=== PATIENT | male | born 1970 | race African-American/Black ===

== ENCOUNTER 2017-08-19 11:17 | Inpatient (IN) | payer SELFPAY ==
[2017-08-19] VITALS (10 sets, daily range): BP systolic 115–150; BP diastolic 54–89; PULSE 55–78; RESP 18–22; TEMP 95.7–98.8; O2SAT 94–100
[~2017-08-19] VITALS: Ht 188 cm; Wt 82.0 kg
[2017-08-19] MEDS ORDERED: MIDAZOLAM HCL 5 MG/ML VIAL (1 ML) ONE (11:44)
[2017-08-19] MEDS ORDERED: LIDOCAINE 2%/EPINEPHrine 1:100,000 50ML MDV ONE (11:45)
[2017-08-19 12:13] LABS: AUTOMATED NEUTROPHIL # 2.8 TH/MM3 (1.8-7.7); BASOPHIL % 0.7 % (0.0-2.0); EOSINOPHIL # 0.4 TH/MM3 (0-0.4); EOSINOPHIL % 7.1 % (0.0-4.0); HEMATOCRIT 38.1 % (39.0-51.0); HEMO FLAGS DIFF FINAL; LYMPH % 31.4 % (9.0-44.0); LYMPHOCYTE # 1.7 TH/MM3 (1.0-4.8); MEAN CELL VOLUME 85.8 FL (80.0-100.0); MEAN CORPUSCULAR HEMOGLOBIN 27.9 PG (27.0-34.0); MEAN CORPUSCULAR HGB CONC 32.5 % (32.0-36.0); NEUT % 52.8 % (16.0-70.0); PLATELET COUNT 307 TH/MM3 (150-450); RED BLOOD COUNT 4.43 MIL/MM3 (4.50-5.90); RED CELL DISTRIBUTION WIDTH 15.5 % (11.6-17.2); WHITE BLOOD COUNT 5.4 TH/MM3 (4.0-11.0)
[2017-08-19] MEDS ORDERED: MIDAZOLAM HCL 2 MG/2 ML VIAL IV PUSH ONE (12:15)
--- NOTE | 2017-08-19 12:17 | RADRPT ---
EXAM DATE/TIME: 08/19/2017 11:38 [facility] COMPARISON: CHEST SINGLE AP, August 19, 2017, 12:05. INDICATIONS : Left side chest pains MEDICAL HISTORY : Prior left side pneumothorax SURGICAL HISTORY : Lt side pneumothroax ENCOUNTER: Initial ACUITY: 1 day PAIN SCORE: 10/10 LOCATION: Left chest FINDINGS: Single view chest demonstrates a large left pneumothorax. There is diffuse interstitial prominence wi thin both lungs. The heart is normal in size. The osseous structures are intact. There is mild shift of the mediastinum from left to right. CONCLUSION: 1. Large left pneumothorax with some shift of the mediastinum from left to right. I do have a followu p exam timed at 1205 hrs. demonstrating a chest tube in place. Robert Gregory MD on August 19, 2017 at 12:14 Board Certified Radiologist. This report was verified electronically.
--- NOTE | 2017-08-19 12:21 | RADRPT ---
EXAM DATE/TIME: 08/19/2017 12:05 [facility] COMPARISON: CHEST SINGLE AP, August 19, 2017, 11:38. INDICATIONS : Left side pneumothorax, post chest tube placement. MEDICAL HISTORY : Lt side pneumothorax SURGICAL HISTORY : Pneumothorax ENCOUNTER: Subsequent ACUITY: 1 day PAIN SCORE: 10/10 LOCATION: Left chest FINDINGS: The exam demonstrates interval placement of a left-sided chest tube. There is still a small amount of residual pneumothorax which remained. The mediastinal shift has resolved. The osseous structures are intact. CONCLUSION: 1. There is a small bore chest tube in place on the left. The tube is somewhat directed inferiorly. T here is still some residual pneumothorax which remains. Robert Gregory MD on August 19, 2017 at 12:19 Board Certified Radiologist. This report was verified electronically.
[2017-08-19 12:24] LABS: APTT (PATIENT) 30.2 SEC (24.3-30.1); PROTHROMBIN TIME - PATIENT 11.6 SEC (9.8-11.6)
[2017-08-19 12:32] LABS: BICARBONATE 27.3 MEQ/L (21.0-32.0); MAGNESIUM 2.1 MG/DL (1.5-2.5)
--- NOTE | 2017-08-19 12:39 | PD ---
HPI Chief Complaint: Respiratory Distress Time Seen by Provider: 11:27 Travel History International Travel<30 days: No Contact w/Intl Traveler<30days: No Traveled to known affect area: No History of Present Illness HPI 47 y/o male presents with shortness of breath that started acutely today. He states that Tuesday he was discharged from [facility] after he had a chest tube there. He states he followed up with his lung specialist Dr. Ojeda on Tuesday and was doing okay. He states that he has history of pulmonary fibrosis and all of his records are at that hospital. History is limited on initial examination based on clinical acuity. [facility] Past Medical History Narrative Medical Pulmonary fibrosis Past Surgical History Surgical History: No Previous Surgery Social History Tobacco Use: No Allergies-Medications (Allergen,Severity, Reaction): Coded Allergies: No Known Allergies (Unverified , 08/19/17) Review of Systems ROS Limitations: Clinical Condition Except as stated in HPI: all other systems reviewed are Neg Physical Exam Narrative GENERAL: Well-nourished, well-developed patient. SKIN: Warm and dry. HEAD: Normocephalic and atraumatic. EYES: No injection or drainage. ENT: No nasal drainage noted. NECK: Supple, trachea midline. CARDIOVASCULAR: Regular rate and rhythm RESPIRATORY: decreased breath sounds on the left. No accessory muscle use. GASTROINTESTINAL: Abdomen soft, non-tender, nondistended. EXTREMITIES: No edema. NEUROLOGICAL: Awake and alert. Motor and sensory grossly within normal limits. Normal speech. Data Data Last Documented VS Vital Signs Date Time Temp Pulse Resp B/P (MAP) Pulse Ox O2 Delivery O2 Flow Rate FiO2 08/19/17 13:00 63 18 121/85 (97) 100 Non-Rebreather 15.00 08/19/17 11:22 97.5 Orders Orders Electrocardiogram (08/19/17 11:27) Basic Metabolic Panel (Bmp) (08/19/17 11:27) Complete Blood Count With Diff (08/19/17 11:27) Magnesium (Mg) (08/19/17 11:27) Prothrombin Time / Inr (Pt) (08/19/17 11:27) Act Partial Throm Time (Ptt) (08/19/17 11:27) Chest, Single Ap (08/19/17 11:27) Ecg Monitoring (08/19/17 11:27) Iv Access Insert/Monitor (08/19/17 11:27) Oximetry (08/19/17 11:27) Oxygen Administration (08/19/17 11:27) Midazolam Inj (Versed Inj) (08/19/17 11:44) Lidocai-Epi 2%-1:100,000 Inj (Xylocaine- (08/19/17 11:45) Chest, Single Ap (08/19/17 ) Midazolam Inj (Versed Inj) (08/19/17 12:15) Consult Cardiothoracic Surgery (08/19/17 ) Admit Order (Ed Use Only) (08/19/17 13:20) Admit To Inpatient (08/19/17 ) Inpatient Certification (08/19/17 ) Diet Npo (08/19/17 Lunch) Activity Bed Rest With Brp (08/19/17 13:21) Vital Signs (Adult) GOSIA.Q4H (08/19/17 13:21) Labs Laboratory Tests Test 08/19/17 11:45 White Blood Count 5.4 TH/MM3 Red Blood Count 4.43 MIL/MM3 Hemoglobin 12.4 GM/DL Hematocrit 38.1 % Mean Corpuscular Volume 85.8 FL Mean Corpuscular Hemoglobin 27.9 PG Mean Corpuscular Hemoglobin Concent 32.5 % Red Cell Distribution Width 15.5 % Platelet Count 307 TH/MM3 Mean Platelet Volume 8.8 FL Neutrophils (%) (Auto) 52.8 % Lymphocytes (%) (Auto) 31.4 % Monocytes (%) (Auto) 8.0 % Eosinophils (%) (Auto) 7.1 % Basophils (%) (Auto) 0.7 % Neutrophils # (Auto) 2.8 TH/MM3 Lymphocytes # (Auto) 1.7 TH/MM3 Monocytes # (Auto) 0.4 TH/MM3 Eosinophils # (Auto) 0.4 TH/MM3 Basophils # (Auto) 0.0 TH/MM3 CBC Comment DIFF FINAL Differential Comment Prothrombin Time 11.6 SEC Prothromb Time International Ratio 1.0 RATIO Activated Partial Thromboplast Time 30.2 SEC Blood Urea Nitrogen 6 MG/DL Creatinine 1.00 MG/DL Random Glucose 79 MG/DL Calcium Level 9.0 MG/DL Magnesium Level 2.1 MG/DL Sodium Level 135 MEQ/L Potassium Level 4.0 MEQ/L Chloride Level 103 MEQ/L Carbon Dioxide Level 27.3 MEQ/L Anion Gap 5 MEQ/L Estimat Glomerular Filtration Rate 96 ML/MIN MDM Medical Decision Making Medical Screen Exam Complete: Yes Emergency Medical Condition: Yes Medical Record Reviewed: Yes (pmh confirmed) Interpretation(s) CBC & BMP Diagram 08/19/17 11:45 Calcium Level 9.0, Magnesium Level 2.1 Chest x-ray preliminary large left-sided pneumothorax noted with shift Repeat preliminary chest x-ray shows ET tube directed inferiorly with small apical pneumo Differential Diagnosis pneumothorax, uri, musculoskeletal.... Narrative Course will check labs, cxr, clinically patient has large left pneumothorax that has redeveloped. Initially he was hesitant to have chest tube placed. Given significant size confirmed on chest xray he agrees to chest tube placement here On reevaluation feeling better, agrees to admission and updated Procedures Procedure Narrative CHEST TUBE THORACOSTOMY: The left chest was prepped with Betadine and sterilely draped. The area of the third intercostal interspace was infiltrated with 1% lidocaine. A 0.5 centimeter incision was made with a scalpel at the third intercostal space anteriorly. the pleura was punctured with pigtail catheter with immediate jiang of air. Tube draining well. The thoracostomy tube was secured with dressing. Patient tolerated procedure well. 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 stevens agrees to admission Diagnosis Primary Impression: Pneumothorax Qualified Codes: J93.9 - Pneumothorax, unspecified Admitting Information Admitting Physician Requests: Admit Rosie May MD Aug 19, 2017 12:39
--- NOTE | 2017-08-19 14:27 | HHI.HP ---
[facility]ician No Primary Care Physician Admission Diagnosis pneumothorax Diagnoses: Chief Complaint: SHORTNESS OF BREATH Travel History International Travel<30 Days: No Contact w/Intl Traveler <30 Da: No Traveled to Known Affected Are: No History of Present Illness Patient is a 47-year-old male came in for shortness of breath. Sudden onset while at rest this morning. Patient states that she will he was in [facility] from August 29 for spontaneous left pneumothorax. He was discharged on September 12 and was doing well until sudden onset of shortness of breath this morning. Patient was discharged on Lopressor Spiriva and tramadol when necessary for pain. On evaluation here noted to have a large pneumothorax in the left and chest tube was placed and now patient is comfortable. Patient admitted for further evaluation. Patient states smoking but quit 6 months ago. Denies any recent trauma Review of Systems Constitutional: DENIES: Fever, Weight loss, Chills, Change in appetite Eyes: DENIES: Blurred vision, Double Vision Ears, nose, mouth, throat: DENIES: Tinnitus, Ear Pain, Epistaxis, Odynophagia Respiratory: DENIES: Cough, Hemoptysis, Sputum production, Shortness of breath Cardiovascular: DENIES: Chest pain, Palpitations, Dyspnea on Exertion, Lower Extremity Edema, Orthopnea Gastrointestinal: DENIES: Black stools, Bloody stools, Difficulty Swallowing, Anorexia Genitourinary: DENIES: Urgency, Hematuria, Penile Discharge Musculoskeletal: DENIES: Joint pain, Stiffness Integumentary: DENIES: Pruritus Hematologic/lymphatic: DENIES: Bruising Immunologic/allergic: DENIES: Urticaria Neurologic: DENIES: Headache, Speech Problems, Tremor Psychiatric: DENIES: Suicidal Ideation, Homicidal Ideation Past Family Social History Past Medical History Hypertension COPD Recess spontaneous pneumothorax left August 29 Past Surgical History No major surgeries Reported Medications Lopressor 25 mg twice a day Spiriva one puff daily Tramadol 50 mg when necessary for pain Allergies: Coded Allergies: No Known Allergies (Unverified , 08/19/17) Family History Noncontributory Social History Smoking a pack a chronic 6 months ago Very occasional alcohol use denied Physical Exam Vital Signs Vital Signs Date Time Temp Pulse Resp B/P (MAP) Pulse Ox O2 Delivery O2 Flow Rate FiO2 08/19/17 13:00 63 18 121/85 (97) 100 Non-Rebreather 15.00 08/19/17 11:55 72 22 125/82 (96) 100 Non-Rebreather 15.00 08/19/17 11:36 98 Non-Rebreather 08/19/17 11:36 94 Non-Rebreather 15.00 08/19/17 11:27 74 16 Non-Rebreather 15.00 08/19/17 11:22 97.5 78 18 115/54 (74) 08/19/17 11:20 100 Non-Rebreather 15.00 Physical Exam GENERAL: Awake alert currently in 100% nonrebreather. SKIN: No rashes, ecchymoses or lesions. Cool and dry. HEAD: Atraumatic. Normocephalic. No temporal or scalp tenderness. EYES: Pupils equal round and reactive. Extraocular motions intact. No scleral icterus. No injection or drainage. ENT: Nose without bleeding, purulent drainage or septal hematoma. Throat without erythema, tonsillar hypertrophy or exudate. Uvula midline. Airway patent. NECK: Trachea midline. No JVD or lymphadenopathy. Supple, nontender, no meningeal signs. CARDIOVASCULAR: Regular rate and rhythm without murmurs, gallops, or rubs. RESPIRATORY: Decreased breath sounds bilaterally no Rales no wheezes. Pigtail catheter in place in the left upper chest wall GASTROINTESTINAL: Abdomen soft, non-tender, nondistended. No hepato-splenomegaly , or palpable masses. No guarding. MUSCULOSKELETAL: Extremities without clubbing, cyanosis, or edema. No joint tenderness, effusion, or edema noted. No calf tenderness. Negative Homans sign bilaterally. NEUROLOGICAL: Awake and alert. Cranial nerves II through XII intact. Motor and sensory grossly within normal limits. Five out of 5 muscle strength in all muscle groups. Normal speech. Laboratory Laboratory Tests Test 08/19/17 11:45 White Blood Count 5.4 Red Blood Count 4.43 Hemoglobin 12.4 Hematocrit 38.1 Mean Corpuscular Volume 85.8 Mean Corpuscular Hemoglobin 27.9 Mean Corpuscular Hemoglobin Concent 32.5 Red Cell Distribution Width 15.5 Platelet Count 307 Mean Platelet Volume 8.8 Neutrophils (%) (Auto) 52.8 Lymphocytes (%) (Auto) 31.4 Monocytes (%) (Auto) 8.0 Eosinophils (%) (Auto) 7.1 Basophils (%) (Auto) 0.7 Neutrophils # (Auto) 2.8 Lymphocytes # (Auto) 1.7 Monocytes # (Auto) 0.4 Eosinophils # (Auto) 0.4 Basophils # (Auto) 0.0 CBC Comment DIFF FINAL Differential Comment Prothrombin Time 11.6 Prothromb Time International Ratio 1.0 Activated Partial Thromboplast Time 30.2 Blood Urea Nitrogen 6 Creatinine 1.00 Random Glucose 79 Calcium Level 9.0 Magnesium Level 2.1 Sodium Level 135 Potassium Level 4.0 Chloride Level 103 Carbon Dioxide Level 27.3 Anion Gap 5 Estimat Glomerular Filtration Rate 96 Result Diagram: 08/19/17 1145 08/19/17 1145 Imaging Last Impressions Chest X-Ray 08/19/17 1127 Signed Impressions: Service Date/Time: Saturday, August 19, 2017 11:38 - CONCLUSION: 1. Large left pneumothorax with some shift of the mediastinum from left to right. I do have a followup exam timed at 1205 hrs. demonstrating a chest tube in place. Robert Gregory MD Caprini VTE Risk Assessment Caprini VTE Risk Assessment: No/Low Risk (score <= 1) Caprini Risk Assessment Model Point Value = 1 Point Value = 2 Point Value = 3 Point Value = 5 Age 41-60 Minor surgery BMI > 25 kg/m2 Swollen legs Varicose veins or History of unexplained or recurrent spontaneous Oral contraceptives or hormone replacement Sepsis (< 1 month) Serious lung disease, including pneumonia (< 1 month) Abnormal pulmonary function Acute myocardial infarction Congestive heart failure (< 1 month) History of inflammatory bowel disease Medical patient at bed rest Age 61-74 Arthroscopic surgery Major open surgery (> 45 min) Laparoscopic surgery (> 45 min) Malignancy Confined to bed (> 72 hours) Immobilizing plaster cast Central venous access Age >= 75 History of VTE Family history of VTE Factor V Leiden Prothrombin [id number] Lupus anticoagulant Anticardiolipin antibodies Elevated serum homocysteine Heparin-induced thrombocytopenia Other congenital or acquired thrombophilia Stroke (< 1 month) Elective arthroplasty Hip, pelvis, or leg fracture Acute spinal cord injury (< 1 month) Prophylaxis Regimen Total Risk Factor Score Risk Level Prophylaxis Regimen 0-1 Low Early ambulation 2 Moderate Order ONE of the following: *Sequential Compression Device (SCD) *Heparin 5000 units SQ BID 3-4 Higher Order ONE of the following medications: *Heparin 5000 units SQ TID *Enoxaparin/Lovenox 40 mg SQ daily (WT < 150 kg, CrCl > 30 mL/min) *Enoxaparin/Lovenox 30 mg SQ daily (WT < 150 kg, CrCl > 10-29 mL/min) *Enoxaparin/Lovenox 30 mg SQ BID (WT < 150 kg, CrCl > 30 mL/min) AND/OR *Sequential Compression Device (SCD) 5 or more Highest Order ONE of the following medications: *Heparin 5000 units SQ TID (Preferred with Epidurals) *Enoxaparin/Lovenox 40 mg SQ daily (WT < 150 kg, CrCl > 30 mL/min) *Enoxaparin/Lovenox 30 mg SQ daily (WT < 150 kg, CrCl > 10-29 mL/min) *Enoxaparin/Lovenox 30 mg SQ BID (WT < 150 kg, CrCl > 30 mL/min) AND *Sequential Compression Device (SCD) Assessment and Plan Assessment and Plan 47-year-old male presenting with Recurrent spontaneous left pneumothorax keep Chest tube in place Percocet when necessary for chest tube site pain Cardiothoracic surgery consulted for further management. 02 NC COPD. Continue Spiriva History of hypertension- good readings here. Monitor for now. Has a script for Lopressor that was not filled TEDs/SCDs. Early ambulation Physician Certification 2 Midnight Certification Type: Admission for Inpatient Services Order for Inpatient Services The services are ordered in accordance with Medicare regulations or non- Medicare payer requirements, as applicable. In the case of services not specified as inpatient-only, they are appropriately provided as inpatient services in accordance with the 2-midnight benchmark. Estimated LOS (days): 3 days is the estimated time the patient will need to remain in the hospital, assuming treatment plan goals are met and no additional complications. Post-Hospital Plan: Not yet determined Jass Gallego MD Aug 19, 2017 14:27
[2017-08-19] MEDS: oxyCODONE/ACETAMINOPHEN 5 MG/325 MG TAB PO PRN (16:27)
--- NOTE | 2017-08-19 16:51 | EKG ---
Date Performed: 08/19/2017 Time Performed: 13:20:16 PTAGE: 47 years EKG: SINUS BRADYCARDIA POSSIBLE RIGHT VENTRICULAR CONDUCTION DELAY VOLTAGE CRITERIA FOR LVH ABNO RMAL ECG NO PREVIOUS TRACING DOCTOR: Romero Mckenna Interpretating Date/Time 08/19/2017 16:50:35
[2017-08-19] MEDS ORDERED: RESP: ALBUTEROL 2.5 MG/IPRATROPIUM 0.5 MG NEB (PRN) NEB (18:00)
--- NOTE | 2017-08-19 18:25 | RADRPT ---
EXAM DATE/TIME: 08/19/2017 17:14 [facility] COMPARISON: CHEST SINGLE AP, August 19, 2017, 12:05. INDICATIONS : Pneumothorax. RADIATION DOSE: 6.25 CTDIvol (mGy) MEDICAL HISTORY : Left chest tube SURGICAL HISTORY : None. ENCOUNTER: Initial ACUITY: 1 day PAIN SCALE: 4/10 LOCATION: Left chest TECHNIQUE: Volumetric scanning of the chest was performed. Using automated exposure control and adjustment of t he mA and/or kV according to patient size, radiation dose was kept as low as reasonably achievable to obtain optimal diagnostic quality images. DICOM format image data is available electronically for r eview and comparison. Follow-up recommendations for detected pulmonary nodules are based at a minimum on nodule size and pa tient risk factors according to Fleischner Society Guidelines. FINDINGS: There is a small bore chest tube in place on the left. The tube is in excellent position. There are m ultiple large emphysematous blebs in the left lung apex. There is a a trace amount of residual pneumo thorax along the medial aspect of the right lung apex. There are multiple large emphysematous blebs seen in both upper lobes more so on the left than the ri ght. There is advanced pulmonary fibrosis. There are multiple small subpleural blebs. Exam would be c oncerning for IPF. The heart is mildly enlarged. There is no pericardial effusion. There is no pleural effusion. The limited portions of upper abdomen visualized are unremarkable. The visualized osseous structures are grossly intact. CONCLUSION: 1. Left apical chest tube in good position. 2. Advanced interstitial fibrosis with multiple subpleural blebs suggesting IPF. 3. There are multiple large emphysematous bleb seen through the lung apices as well. 4. Cardiomegaly. Robert Gregory MD on August 19, 2017 at 18:19 Board Certified Radiologist. This report was verified electronically.
[2017-08-19] MEDS: HYDROmorphone HCL PF 1 MG/ML VIAL IV PRN (21:17)
[2017-08-20] VITALS (8 sets, daily range): BP systolic 101–123; BP diastolic 64–81; PULSE 57–67; RESP 17–20; TEMP 95.3–97.3; O2SAT 95–100
[2017-08-20] MEDS: HYDROmorphone HCL PF 1 MG/ML VIAL IV PRN (05:14)
--- NOTE | 2017-08-20 08:42 | HHI.PR ---
Subjective Remarks complains of chest tube site pain no cough blunt affect Objective Vitals Vital Signs Date Time Temp Pulse Resp B/P (MAP) Pulse Ox O2 Delivery O2 Flow Rate FiO2 08/20/17 05:30 95 Nasal Cannula 3.00 08/20/17 00:00 97.3 61 17 118/80 (93) 99 08/19/17 20:00 98.8 72 20 124/74 (91) 100 08/19/17 19:01 94 Nasal Cannula 4.00 08/19/17 17:55 08/19/17 17:30 95.7 55 18 125/83 (97) 100 08/19/17 16:08 66 20 150/89 (109) 99 Nasal Cannula 4.00 08/19/17 13:00 63 18 121/85 (97) 100 Non-Rebreather 15.00 08/19/17 11:55 72 22 125/82 (96) 100 Non-Rebreather 15.00 08/19/17 11:36 98 Non-Rebreather 08/19/17 11:36 94 Non-Rebreather 15.00 08/19/17 11:27 74 16 Non-Rebreather 15.00 08/19/17 11:22 97.5 78 18 115/54 (74) 08/19/17 11:20 100 Non-Rebreather 15.00 I/O 08/19/17 08/19/17 08/19/17 08/20/17 08/20/17 08/20/17 07:00 15:00 23:00 07:00 15:00 23:00 Intake Total 0 ml Output Total 50 ml 1100 ml Balance -50 ml -1100 ml Intake IV Total 0 ml Output Urine Total 1100 ml Chest Tube Drainage Total 0 ml Drainage Total 50 ml Result Diagram: 08/19/17 1145 08/19/17 1145 Imaging Last Impressions Chest X-Ray 08/19/17 1127 Signed Impressions: Service Date/Time: Saturday, August 19, 2017 11:38 - CONCLUSION: 1. Large left pneumothorax with some shift of the mediastinum from left to right. I do have a followup exam timed at 1205 hrs. demonstrating a chest tube in place. Robert Gregory MD Chest CT 08/19/17 0000 Signed Impressions: Service Date/Time: [place], August 19, 2017 17:14 - CONCLUSION: 1. Left apical chest tube in good position. 2. Advanced interstitial fibrosis with multiple subpleural blebs suggesting IPF. 3. There are multiple large emphysematous bleb seen through the lung apices as well. 4. Cardiomegaly. Robert Gregory MD Objective Remarks awake and alert, oriented x 3 anicteric lungs decreased breath sounds, no rales or wheezes, CT in site left regular rhythm abdomen soft, nontender extrmeities no edema A/P Assessment and Plan 47-year-old male presenting with Recurrent spontaneous left pneumothorax-left keep Chest tube in place, CT with blebs Percocet when necessary for chest tube site pain- d/w him Cardiothoracic surgery consulted for further management. 02 NC getting IV Dilaudid- discussed with him to try po pain meds COPD. Continue Spiriva History of hypertension- good readings here. Monitor for now. Has a script for Lopressor that was not filled Out of bed to chair PT consult TEDs/SCDs. Early ambulation- patient encouraged Jass Gallego MD Aug 20, 2017 08:42
[2017-08-20] MEDS: TIOTROPIUM BROMIDE 18 MCG INH INH SCH (08:53)
[2017-08-20] MEDS: oxyCODONE/ACETAMINOPHEN 5 MG/325 MG TAB PO PRN ×3 (08:58→20:21)
[2017-08-21] VITALS (17 sets, daily range): BP systolic 111–139; BP diastolic 73–89; PULSE 64–78; RESP 16–20; TEMP 96.4–98.1; O2SAT 93–99
[2017-08-21] MEDS: oxyCODONE/ACETAMINOPHEN 5 MG/325 MG TAB PO PRN ×5 (00:35→22:03)
[2017-08-21] MEDS: TIOTROPIUM BROMIDE 18 MCG INH INH SCH ×2 (07:53→12:01)
--- NOTE | 2017-08-21 08:38 | HHI.PR ---
Subjective Remarks more interactive and smiling, pleasant and cooperative pain on chest tube site Objective Vitals Vital Signs Date Time Temp Pulse Resp B/P (MAP) Pulse Ox O2 Delivery O2 Flow Rate FiO2 08/21/17 00:00 96.5 74 20 121/86 (98) 99 08/20/17 22:39 98 Nasal Cannula 3.00 08/20/17 20:00 96.6 67 20 123/81 (95) 08/20/17 16:09 98 Nasal Cannula 3.00 08/20/17 16:00 96.4 57 17 110/73 (85) 98 08/20/17 12:00 95.3 60 17 101/66 (78) 100 I/O 08/20/17 08/20/17 08/20/17 08/21/17 08/21/17 08/21/17 07:00 15:00 23:00 07:00 15:00 23:00 Intake Total 0 ml 720 ml 480 ml Output Total 1100 ml 650 ml 650 ml 1300 ml Balance -1100 ml -650 ml 70 ml -820 ml Intake Oral 720 ml 480 ml IV Total 0 ml Output Urine Total 1100 ml 650 ml 650 ml 1300 ml Chest Tube Drainage Total 0 ml # Bowel Movements 0 0 Result Diagram: 08/19/17 1145 08/19/17 1145 Imaging Last Impressions Chest X-Ray 08/19/17 1127 Signed Impressions: Service Date/Time: Saturday, August 19, 2017 11:38 - CONCLUSION: 1. Large left pneumothorax with some shift of the mediastinum from left to right. I do have a followup exam timed at 1205 hrs. demonstrating a chest tube in place. Robert Gregory MD Chest CT 08/19/17 0000 Signed Impressions: Service Date/Time: Saturday, August 19, 2017 17:14 - CONCLUSION: 1. Left apical chest tube in good position. 2. Advanced interstitial fibrosis with multiple subpleural blebs suggesting IPF. 3. There are multiple large emphysematous bleb seen through the lung apices as well. 4. Cardiomegaly. Robert Gregory MD Objective Remarks awake and alert, oriented x 3 anicteric lungs decreased breath sounds, no rales or wheezes, CT - pigtail catheter in place left anterior chest wall regular rhythm abdomen soft, nontender no edema, no calf tenderness neuro exam- unremarkable A/P Assessment and Plan 47-year-old male presenting with Recurrent spontaneous left pneumothorax-l keep Chest tube in place, chest CT with blebs Percocet when necessary for chest tube site pain- not requiring IV pain meds Cardiothoracic surgery consulted for further management.and chest tube management - will get a repeat CXR now for ff up pneumothorax 02 NC pain meds COPD. Continue Spiriva History of hypertension- good readings here. Monitor for now. Has a script for Lopressor that was never filled Out of bed to chair- activity PT consult TEDs/SCDs. Early ambulation- patient encouraged Jass Gallego MD Aug 21, 2017 08:38
--- NOTE | 2017-08-21 11:43 | PD.CAR.PN ---
CVT Progress Note Subjective/Hospital Course: c/o pain at chest tube site. Displeased with care at this hospital and requesting transfer to [facility] where he was recently discharged. Objective: Vital Signs Date Time Temp Pulse Resp B/P (MAP) Pulse Ox O2 Delivery O2 Flow Rate FiO2 08/21/17 08:00 96.8 71 17 118/87 (97) 97 08/21/17 00:00 96.5 74 20 121/86 (98) 99 08/20/17 22:39 98 Nasal Cannula 3.00 08/20/17 20:00 96.6 67 20 123/81 (95) 08/20/17 16:09 98 Nasal Cannula 3.00 08/20/17 16:00 96.4 57 17 110/73 (85) 98 08/20/17 12:00 95.3 60 17 101/66 (78) 100 Result Diagram: 08/19/17 1145 08/19/17 1145 Imaging: Last Impressions Chest X-Ray 08/19/17 1127 Signed Impressions: Service Date/Time: Saturday, August 19, 2017 11:38 - CONCLUSION: 1. Large left pneumothorax with some shift of the mediastinum from left to right. I do have a followup exam timed at 1205 hrs. demonstrating a chest tube in place. Robert Gregory MD Chest CT 08/19/17 0000 Signed Impressions: Service Date/Time: Saturday, August 19, 2017 17:14 - CONCLUSION: 1. Left apical chest tube in good position. 2. Advanced interstitial fibrosis with multiple subpleural blebs suggesting IPF. 3. There are multiple large emphysematous bleb seen through the lung apices as well. 4. Cardiomegaly. Robert Gregory MD Cardiovascular: RRR Pulmonary: CTA GI/: NABS Plan: Patient was recently discharged from [facility] and he is known to that hospital and their physicians. It is reasonable to investigate transferring him there as he requests. CXR today Transfer to [facility] for chest tube care - chest tube was found unsecured and I secured it myself. If transfer is not feasible, he would benefit from VATS bleb resection and pleuradesis. Kati Blunt MD Aug 21, 2017 11:43
--- NOTE | 2017-08-21 12:12 | RADRPT ---
EXAM DATE/TIME: 08/21/2017 11:36 [facility] COMPARISON: CHEST SINGLE AP, August 19, 2017, 12:05. INDICATIONS : Evaluate pneumothorax MEDICAL HISTORY : pneumothorax SURGICAL HISTORY : Left chest tube ENCOUNTER: Subsequent ACUITY: 2 days PAIN SCORE: 4/10 LOCATION: Left chest FINDINGS: Single portable expiration view of the chest demonstrates a left-sided apically directed chest tube a nd a large left-sided pneumothorax which has increased in size as compared to the prior exam. There i s progressive hazy opacity identified within the right right hemithorax which may reflect atelectasis . The heart size appears at the upper limits of normal. Osseous structures are unremarkable. CONCLUSION: Large left-sided pneumothorax with atelectasis of the left lung. This is increased in size as compare d to the prior exam. There is an apically directed chest tube present appears to be appropriate in po sition. Increasing hazy opacity identified within the right hemithorax likely reflecting atelectasis. Elizabeth Hall MD on August 21, 2017 at 12:08 Board Certified Radiologist. This report was verified electronically.
[2017-08-22] VITALS (39 sets, daily range): BP systolic 115–159; BP diastolic 82–102; PULSE 57–96; RESP 16–18; TEMP 97.4–98.4; O2SAT 91–100
--- NOTE | 2017-08-22 08:11 | HHI.PR ---
Subjective Remarks This is a pleasant 47 y/o male who came to ER with SOB, sudden onset, he had history of spontaneous left pneumothorax with recent treatment and discharged from [facility], due to Large Pneumothorax on jeancarlos left a chest tube was placed. as we know he has Hypertension COPD, I was called early in the morning by nurse Miss Pedroza to tell me the patient had his Left Chest tube dislodge, recommended to get a CXR that showed Left tension Pneumothorax, as placed a new Chest tube by Cardiothoracic surgery and recommended for VATS procedure for tomorrow Objective Vital Signs Date Time Temp Pulse Resp B/P (MAP) Pulse Ox O2 Delivery O2 Flow Rate FiO2 08/22/17 07:47 95 Nasal Cannula 3.00 08/22/17 07:00 78 08/22/17 06:00 72 08/22/17 05:00 72 08/22/17 04:00 97.6 70 18 139/99 (112) 96 08/22/17 04:00 86 08/22/17 03:42 66 08/22/17 03:00 66 08/22/17 02:00 74 08/22/17 01:00 68 08/22/17 00:00 74 08/22/17 00:00 98.4 71 16 142/97 (112) 96 08/21/17 23:20 76 08/21/17 23:00 72 08/21/17 22:00 74 08/21/17 21:06 96 Nasal Cannula 3.00 08/21/17 21:00 68 08/21/17 20:00 68 08/21/17 19:00 97.5 72 16 119/82 (94) 96 08/21/17 19:00 72 08/21/17 18:00 64 08/21/17 17:00 72 08/21/17 16:30 93 Nasal Cannula 3.00 08/21/17 16:00 67 08/21/17 15:30 98.1 66 16 139/89 (106) 08/21/17 15:00 69 08/21/17 12:00 96.4 78 17 111/73 (86) 95 08/21/17 09:18 95 Nasal Cannula 3.00 I/O 10/1/17 10/1/17 10/1/17 10/2/17 10/2/17 10/2/17 07:00 15:00 23:00 07:00 15:00 23:00 Intake Total 480 ml 840 ml 720 ml Output Total 1300 ml 0 ml 920 ml Balance -820 ml 840 ml -200 ml Intake Oral 480 ml 840 ml 720 ml Output Urine Total 1300 ml 900 ml Chest Tube Drainage Total 0 ml 20 ml # Voids 2 # Bowel Movements 0 0 Result Diagram: 08/19/17 1145 08/19/17 1145 Imaging Last Impressions Chest X-Ray 08/21/17 0000 Signed Impressions: Service Date/Time: Monday, August 21, 2017 11:36 - CONCLUSION: Large left-sided pneumothorax with atelectasis of the left lung. This is increased in size as compared to the prior exam. There is an apically directed chest tube present appears to be appropriate in position. Increasing hazy opacity identified within the right hemithorax likely reflecting atelectasis. Elizabeth Hall MD Chest CT 08/19/17 0000 Signed Impressions: Service Date/Time: Saturday, August 19, 2017 17:14 - CONCLUSION: 1. Left apical chest tube in good position. 2. Advanced interstitial fibrosis with multiple subpleural blebs suggesting IPF. 3. There are multiple large emphysematous bleb seen through the lung apices as well. 4. Cardiomegaly. Robert Gregory MD Procedures Chest Tube placement on Left. repeated today. Other Results Laboratory Tests Test 08/19/17 11:45 White Blood Count 5.4 TH/MM3 Red Blood Count 4.43 MIL/MM3 Hemoglobin 12.4 GM/DL Hematocrit 38.1 % Mean Corpuscular Volume 85.8 FL Mean Corpuscular Hemoglobin 27.9 PG Mean Corpuscular Hemoglobin Concent 32.5 % Red Cell Distribution Width 15.5 % Platelet Count 307 TH/MM3 Mean Platelet Volume 8.8 FL Neutrophils (%) (Auto) 52.8 % Lymphocytes (%) (Auto) 31.4 % Monocytes (%) (Auto) 8.0 % Eosinophils (%) (Auto) 7.1 % Basophils (%) (Auto) 0.7 % Neutrophils # (Auto) 2.8 TH/MM3 Lymphocytes # (Auto) 1.7 TH/MM3 Monocytes # (Auto) 0.4 TH/MM3 Eosinophils # (Auto) 0.4 TH/MM3 Basophils # (Auto) 0.0 TH/MM3 CBC Comment DIFF FINAL Differential Comment Prothrombin Time 11.6 SEC Prothromb Time International Ratio 1.0 RATIO Activated Partial Thromboplast Time 30.2 SEC Blood Urea Nitrogen 6 MG/DL Creatinine 1.00 MG/DL Random Glucose 79 MG/DL Calcium Level 9.0 MG/DL Magnesium Level 2.1 MG/DL Sodium Level 135 MEQ/L Potassium Level 4.0 MEQ/L Chloride Level 103 MEQ/L Carbon Dioxide Level 27.3 MEQ/L Anion Gap 5 MEQ/L Estimat Glomerular Filtration Rate 96 ML/MIN Objective Remarks GENERAL: Well developed in no acute distress. SKIN: Warm and dry. HEAD: Atraumatic. Normocephalic. EYES: Pupils equal and round. No scleral icterus. No injection or drainage. ENT: No nasal bleeding or discharge. Mucous membranes pink and moist. NECK: Trachea midline. No JVD. CARDIOVASCULAR: Regular rate and rhythm. RESPIRATORY: decreased breath sounds on the left chest area with chest tube in place. GASTROINTESTINAL: Abdomen soft, non-tender, nondistended. Hepatic and splenic margins not palpable. MUSCULOSKELETAL: Extremities without clubbing, cyanosis, or edema. No obvious deformities. NEUROLOGICAL: Awake and alert. No obvious cranial nerve deficits. Motor grossly within normal limits. Five out of 5 muscle strength in the arms and legs. Normal speech. PSYCHIATRIC: Appropriate mood and affect; insight and judgment normal. Medications and IVs Current Medications Medications (Trade) Dose Ordered Sig/Susanna Route Start Time Stop Time Status Last Admin (Spiriva Inh) 18 mcg DAILY INH 08/20/17 09:00 08/21/17 12:01 (Percocet 5-325 Mg) 1 tab Q4H PRN PO 08/19/17 14:45 08/21/17 22:03 (Duoneb Neb) 1 ampule Q6HR WHILE AWAKE NEB PRN NEB 08/19/17 18:00 (Dilaudid Pf Inj) 0.2 mg Q3HR PRN IV PUSH 08/20/17 08:45 A/P Assessment and Plan 47-year-old male presenting with Recurrent spontaneous left pneumothorax keep Chest tube in place, chest CT with blebs, today chest tube dislodge and was replace by Cardiothoracic surgery. Pain Medicine, Cardiothoracic Surgery Doctor Kati Blunt Following, recommended, VATS Bleb resection and Pleurodesis patient accepted will be performed tomorrow. Oxygen to keep oxygen saturation over 90%. COPD. Bronchodilator, Mucolytic and incentive spirometry. Hypertension controlled. Out of bed to chair- activity PT consult authorization manager. TEDs/SCDs. Early ambulation- patient encouraged Discharge Planning Once cleared by Specialists. Kingsley Murphy MD Aug 22, 2017 08:11
--- NOTE | 2017-08-22 08:15 | MB ---
cc: KATI BLUNT DATE OF CONSULTATION 08/19/17 DATE OF 1970 HISTORY OF PRESENT ILLNESS A 47-year-old male that was just recently discharged from [facility] that had a spontaneous left pneumothorax, had an initial chest tube placed in the emergency department apparently came out and had a second chest tube placed with resolution of the pneumothorax after about 10-12 days. He was actually seen by Dr. Arnoldo Vernon. They discussed possible bleb resection. However, the patient's pneumothorax resolved spontaneously then, so he was discharged and then presented early this morning for new onset again of sudden chest pain, left-sided and shortness of breath. They did a chest x-ray which showed a large left pneumothorax, some shift of the mediastinum from the left the right. They placed a pigtail catheter in the emergency department and a repeat chest x-ray shows some residual pneumothorax. We were consulted because of recurrent pneumothorax. PAST MEDICAL HISTORY Includes spontaneous pneumothorax, July 29 requiring a chest tube at [facility]. COPD, hypertension. PAST SURGICAL HISTORY No major surgeries. SURGERIES No known allergies MEDICATIONS Home meds include: 1. Lopressor 25 b.i.d. 2. Spiriva 1 puff daily. 3. Tramadol 50 p.r.n. for pain. FAMILY HISTORY Noncontributory. No history of spontaneous pneumothorax. SOCIAL HISTORY The patient , single, has children. 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 Occasional alcohol. No illicit drugs. Quit smoking for about 6 months ago. Smoked less than a pack per week. REVIEW OF SYSTEMS GENERAL: In general, no night sweats, fever, heat or cold intolerance. SKIN: No psoriasis, itching or hives. HEENT: No blurred vision, hearing loss. RESPIRATORY: Positive for recent chest pain, shortness of breath. GASTROINTESTINAL: No diarrhea, vomiting. GENITOURINARY: No burning frequency, urgency. IT TEACHER: No history of TIA, CVA, seizure disorder. ENDOCRINOLOGY: No history of diabetes or hypothyroidism. PHYSICAL EXAMINATION VITAL SIGNS: On exam blood pressure 120/80, heart rate 60, currently is on 4 liters nasal cannula. He did start out with a non-rebreather and the O2 sat was 94%. He is now 99% on 4 liters, afebrile. GENERAL: Patient is awake, alert, in no acute distress. HEENT: Head is normocephalic, atraumatic. Pupils equal and reactive. Oral mucosa pink, moist. NECK: Supple. No JVD. HEART: Sounds S1-S2, regular rate and rhythm. No audible rubs, murmurs, gallops. LUNGS: Diminished in the left lower lobe otherwise, he has got a left small-bore pigtail catheter in the left upper chest wall, and that is to wall suction at 20 cm. He does have a small incision that is healing to the left lateral chest wall with some scant yellowish drainage. ABDOMEN: Soft, nontender. No masses or organomegaly. EXTREMITIES: No cyanosis, clubbing or edema. LABORATORY DATA Lab work shows hemoglobin 12, hematocrit 38, white cell count 5.4, platelet count 307, sodium 135, potassium 4.0, BUN 6, creatinine 1.0, mag level 2.1. INR is 1.0. IMAGING STUDIES Chest x-ray as above. IMPRESSION This is a very pleasant 57-year-old male with a recurrent left pneumothorax, spontaneous. At this time there is no imaging available from [facility], so we will proceed with a CT chest without contrast to evaluate for bullae and/or blebs and evaluation for possible need for left video-assisted thoracoscopy with bleb resection as per Dr. Kati Blunt. Dictated by: KEYON Devine Kati Blunt MD CHM/BERNRAD /4:33 PM /8:14 AM
--- NOTE | 2017-08-22 08:36 | RADRPT ---
EXAM DATE/TIME: 08/22/2017 07:46 [facility] COMPARISON: CHEST SINGLE AP, August 21, 2017, 11:36. INDICATIONS : Evaluate left chest tube and pneumothorax, short of breath and some coughing MEDICAL HISTORY : pneumothorax SURGICAL HISTORY : left chest tube ENCOUNTER: Subsequent ACUITY: 3 days PAIN SCORE: 5/10 LOCATION: Left chest FINDINGS: The cardiac silhouette is enlarged in transverse diameter. Small caliber chest tubes in place with la rge left pneumothorax with shift of the mediastinum characteristic of tension pneumothorax. Subcutane ous air is present on the left. CONCLUSION: 1. Left tension pneumothorax. The findings were discussed with the nurse at time of dictation Liang Cervantes MD on August 22, 2017 at 8:30 Board Certified Radiologist. This report was verified electronically.
[2017-08-22] MEDS ORDERED: MORPHINE SULFATE 8 MG/ML INJ ONE (08:41)
[2017-08-22] MEDS ORDERED: MIDAZOLAM HCL 5 MG/ML VIAL (1 ML) ONE (08:46)
[2017-08-22] MEDS ORDERED: LIDOCAINE HCL 1% 50 ML VIAL ONE (09:01)
--- NOTE | 2017-08-22 09:43 | RADRPT ---
EXAM DATE/TIME: 08/22/2017 09:22 [facility] COMPARISON: CT THORAX W/O CONTRAST, August 19, 2017, 17:14. CHEST SINGLE AP, August 22, 2017, 7:46. INDICATIONS : Post chest tube replacement for left tension pneumothorax MEDICAL HISTORY : pneumothorax SURGICAL HISTORY : left chest tube ENCOUNTER: Subsequent ACUITY: 1 day PAIN SCORE: 5/10 LOCATION: Left chest FINDINGS: There has been exchange of a pigtail left thoracostomy tube for a large caliber surgical tube. There is persistent moderate pneumothorax on the left with about 5 cm separation of medial apical pleural l acosta. Is extensive subcutaneous emphysema. There has been resolution of cardiomediastinal shift. The re is persistent diffuse interstitial and alveolar parenchymal opacity. CONCLUSION: Persistent sizable left apical pneumothorax. Resolution of tension, however Arnoldo Gonzalez MD on August 22, 2017 at 9:39 Board Certified Radiologist. This report was verified electronically.
--- NOTE | 2017-08-22 10:03 | PD.CAR.PN ---
CVT Progress Note Subjective/Hospital Course: c/o pain at chest tube site. Displeased with care at this hospital and requesting transfer to [facility] where he was recently discharged. 08/22/17 Patient developed left tension pneumothorax this morning likely secondary tube dislodgement. Chest tube repleced by Dr. Carmichael emergently with re-expansion of left lung and small apical PTX. Patient has no complaints currently. Objective: Vital Signs Date Time Temp Pulse Resp B/P (MAP) Pulse Ox O2 Delivery O2 Flow Rate FiO2 08/22/17 08:07 97.4 143/98 (113) 08/22/17 07:47 95 Nasal Cannula 3.00 08/22/17 07:00 78 08/22/17 06:00 72 08/22/17 05:00 72 08/22/17 04:00 97.6 70 18 139/99 (112) 96 08/22/17 04:00 86 08/22/17 03:42 66 08/22/17 03:00 66 08/22/17 02:00 74 08/22/17 01:00 68 08/22/17 00:00 74 08/22/17 00:00 98.4 71 16 142/97 (112) 96 08/21/17 23:20 76 08/21/17 23:00 72 08/21/17 22:00 74 08/21/17 21:06 96 Nasal Cannula 3.00 08/21/17 21:00 68 08/21/17 20:00 68 08/21/17 19:00 97.5 72 16 119/82 (94) 96 08/21/17 19:00 72 08/21/17 18:00 64 08/21/17 17:00 72 08/21/17 16:30 93 Nasal Cannula 3.00 08/21/17 16:00 67 08/21/17 15:30 98.1 66 16 139/89 (106) 08/21/17 15:00 69 08/21/17 12:00 96.4 78 17 111/73 (86) 95 Result Diagram: 08/19/17 1145 08/19/17 1145 Imaging: Last Impressions Chest X-Ray 08/21/17 0000 Signed Impressions: Service Date/Time: Monday, August 21, 2017 11:36 - CONCLUSION: Large left-sided pneumothorax with atelectasis of the left lung. This is increased in size as compared to the prior exam. There is an apically directed chest tube present appears to be appropriate in position. Increasing hazy opacity identified within the right hemithorax likely reflecting atelectasis. Elizabeth Hall MD Chest CT 08/19/17 0000 Signed Impressions: Service Date/Time: Saturday, August 19, 2017 17:14 - CONCLUSION: 1. Left apical chest tube in good position. 2. Advanced interstitial fibrosis with multiple subpleural blebs suggesting IPF. 3. There are multiple large emphysematous bleb seen through the lung apices as well. 4. Cardiomegaly. Robert Gregory MD Cardiovascular: RRR Telemetry: NSR Pulmonary: CTA GI/: NABS CT: minimal output, no visible air leak Plan: Recommend left VATS for bleb resection and pleuradesis. Risks and benefits discussed with the patient and he agrees to proceed. Plan for this procedure tomorrow. Kati Blunt MD Aug 22, 2017 10:03
[2017-08-22] MEDS ORDERED: CHLORHEXIDINE GLUCONATE 4% SOLN 120 ML BTL TOPICAL SCH (10:15)
[2017-08-22] MEDS ORDERED: ceFAZolin 2 GM PREMIX 50 ML IV SCH (10:15)
[2017-08-22] MEDS: MUPIROCIN 2% OINT 1 APPLIC/GM SYR EACH NARE SCH ×2 (10:15→20:32)
[2017-08-22] MEDS: oxyCODONE/ACETAMINOPHEN 5 MG/325 MG TAB PO PRN ×3 (11:05→20:27)
[2017-08-22] MEDS: TIOTROPIUM BROMIDE 18 MCG INH INH SCH (11:05)
--- NOTE | 2017-08-22 13:27 | PD.OP ---
Operative Report Date of Surgery: Aug 22, 2017 Preoperative Diagnosis: Postoperative Diagnosis: Procedure: 1. Emergent Left Thoracostomy Tube Placement 2. Decompression of Tension Pneumothorax Surgeon: Ken Carmichael Bottom Finisher(s): Kym Cai Operation and Findings: PREOPERATIVE DIAGNOSES 1. Left Tension Pneumothorax 2. Blebs POSTOPERATIVE DIAGNOSES Same SURGICAL PROCEDURE 1. Emergent Left Thoracostomy Tube Placement 2. Decompression of Tension Pneumothorax SURGEON Ken Carmichael MD [employer]ERA REPAIRER Arnoldo Cai CLINICAL PSYCHOLOGIST PRIVATE [facility]ICE ANESTHESIA Lidocaine 1% IV Sedation PREPARATION ChloraPrep. COUNTS Needle, sponge, and instrument counts are correct. DRAINS One [address] COMPLICATIONS None. INDICATIONS The patient is a 47 yo gentleman with recurrent L PTX, now with tension PTX due to dislodgement of the pigtail catheter. The procedure is being performed at the bedside emergently to decompress the tension PTX. DESCRIPTION OF PROCEDURE Informed consent was obtained for a chest tube. Patient was placed on his right side. Site was cleaned and sterilized with chlorohexidine and drapped in usual fashion. Then 15 mls of 1% lidocaine was injected in a normal fashion into the tissue. Incision was then made over the 5th rib in the anterior axillary line and the tissue was dissected to the pleural space. Then a trocared 20 Fr malay chest tube was inserted into the pleural space. Upon entering the pleural space a big gush of air was noted. The chest tube was then secured with a 2-0 silk. Once secured, the chest tube was then connected to a pleur-evac suction device and the incision site was dressed with sterile gauze and tape. No complications were identified and a PCXR is pending. Ken Carmichael MD Aug 22, 2017 13:27
[2017-08-22] MEDS ORDERED: MIDAZOLAM HCL 5 MG/ML VIAL (1 ML) IV ONE (14:00)
[2017-08-22] MEDS ORDERED: MORPHINE SULFATE 8 MG/ML INJ IV PUSH ONE (14:00)
[2017-08-22 18:58] LABS: BLOOD, URINE NEG (NEG); COMMENT (UR) CULT NOT INDICATED; CULTURE IF INDICATED CULT NOT INDICATED; GLUCOSE,URINE NEG (NEG); KETONE, URINE NEG (NEG); NITRITE,URINE NEG (NEG); PH, URINE 6.5 (5.0-8.5); URINE COLOR YELLOW (YELLW/STRAW)
[2017-08-23] VITALS (22 sets, daily range): BP systolic 126–151; BP diastolic 86–98; PULSE 54–109; RESP 16–19; TEMP 97.6–98.8; O2SAT 95–100
[2017-08-23] MEDS: oxyCODONE/ACETAMINOPHEN 5 MG/325 MG TAB PO PRN ×2 (01:23→07:48)
[2017-08-23] MEDS: MUPIROCIN 2% OINT 1 APPLIC/GM SYR EACH NARE SCH ×2 (09:00→21:00)
[2017-08-23] MEDS: TIOTROPIUM BROMIDE 18 MCG INH INH SCH (10:37)
[2017-08-23] MEDS ORDERED: ACETAMINOPHEN 1000 MG/100 ML 100 ML IV ONE (11:15)
[2017-08-23] MEDS ORDERED: SUGAMMADEX SODIUM 200 MG/2 ML VIAL IV PUSH ONE ×2 (11:15)
[2017-08-23] MEDS ORDERED: ceFAZolin 2 GM PREMIX 50 ML ONE (11:28)
[2017-08-23] MEDS ORDERED: BUPIVACAINE HCL PF 0.5% 30 ML VIAL ONE (11:28)
[2017-08-23] MEDS ORDERED: LABETALOL HCL 100 MG/20 ML VIAL IV ONE (12:00)
[2017-08-23] MEDS ORDERED: ePHEDrine/NS 25 MG/5 ML SYR IV ONE (12:00)
[2017-08-23] MEDS ORDERED: LIDOCAINE HCL 1% PF 5 ML AMPULE OTHER ONE (12:00)
[2017-08-23] MEDS ORDERED: LACTATED RINGER'S 1000 ML INJ 1,000 ML IV ONE (12:00)
[2017-08-23] MEDS ORDERED: PROPOFOL 200 MG/20 ML AMP IV ONE (12:00)
[2017-08-23] MEDS ORDERED: PHENYLEPH/NS 1000 MCG/10 ML SYR IV ONE (12:00)
[2017-08-23] MEDS ORDERED: ONDANSETRON HCL 4 MG/2 ML VIAL IV PUSH ONE (12:00)
[2017-08-23] MEDS ORDERED: ROCURONIUM INJ 50 MG/5 ML SYRINGE IV PUSH ONE (12:00)
--- NOTE | 2017-08-23 13:19 | PD.CAR.PN ---
CVT Progress Note Subjective/Hospital Course: 47-year-old male presented to ED with shortness of breath. Sudden onset while at rest , he was recently at [facility] from August 29 for spontaneous left pneumothorax, pigtail cath was placed, he was eval by Dr Arnoldo Vernon for possible surgery, his lung finally re-expanded . He was discharged on September 12 and was doing well until sudden onset of shortness of breath day of admission. He was discharged on Lopressor Spiriva and tramadol when necessary for pain. On evaluation here noted to have a large pneumothorax in the left and chest tube was placed and now patient is comfortable Patient states smoking but quit 6 months ago. Denies any recent traumac/o pain at chest tube site. recent left spontaneous PTX, tobacco abuse ( quit 6 months ago) 08/22/17 Patient developed left tension pneumothorax this morning likely secondary tube dislodgement. Chest tube replaced by Dr. Carmichael emergently with re-expansion of left lung and small apical PTX. Patient has no complaints currently. 08/23 left chest tube remains in place for left thorascopic exploration bleb resection and pleurodesis today Objective: GENERAL: SKIN: Warm and dry. HEAD: Normocephalic. EYES: No scleral icterus. No injection or drainage. NECK: Supple, trachea midline. No JVD or lymphadenopathy. CARDIOVASCULAR: Regular rate and rhythm without murmurs, gallops, or rubs. RESPIRATORY: Breath sounds equal bilaterally. No accessory muscle use. left chest tube in place, small air leak noted to wall suction GASTROINTESTINAL: Abdomen soft, non-tender, nondistended. MUSCULOSKELETAL: No cyanosis, or edema. BACK: Nontender without obvious deformity. No CVA tenderness. Vital Signs Date Time Temp Pulse Resp B/P (MAP) Pulse Ox O2 Delivery O2 Flow Rate FiO2 08/23/17 11:00 61 19 126/86 (99) 08/23/17 11:00 67 08/23/17 10:11 20 08/23/17 10:00 62 08/23/17 09:48 Nasal Cannula 1.00 08/23/17 09:00 64 08/23/17 08:00 58 08/23/17 07:00 97.6 59 19 151/97 (115) 08/23/17 07:00 54 08/23/17 06:02 57 08/23/17 05:50 56 08/23/17 04:19 57 08/23/17 03:47 55 08/23/17 03:20 97.8 59 16 143/91 (108) 100 08/23/17 02:04 59 08/23/17 01:58 58 08/23/17 00:06 57 08/22/17 23:17 58 08/22/17 23:17 98.0 62 17 137/96 (110) 100 08/22/17 22:12 68 08/22/17 21:20 96 Nasal Cannula 3.00 08/22/17 21:00 59 08/22/17 20:00 57 08/22/17 19:15 97.7 59 16 159/98 (118) 99 08/22/17 18:00 64 08/22/17 17:12 74 99 08/22/17 17:00 66 08/22/17 16:00 68 08/22/17 15:40 97.6 138/92 (107) 08/22/17 15:00 71 08/22/17 14:00 64 Result Diagram: 08/19/17 1145 08/19/17 1145 Telemetry: NSR (1) Pneumothorax (2) Recurrent spontaneous pneumothorax Plan: initial pig tail cath , dislodged with acute left tension PTX/ post chest tube placement by Dr Carmichael for left thorascopic evaluation with bleb resection and pleurodesis today Problem Qualifiers (1) Pneumothorax: Qualified Codes: J93.9 - Pneumothorax, unspecified Elizabeth Sood Aug 23, 2017 13:19
--- NOTE | 2017-08-23 13:22 | HHI.FF ---
Face to Face Verification Diagnosis: (1) Pneumothorax (2) Recurrent spontaneous pneumothorax Home Health Nursing Order: Signs/symptoms of disease process Medication education-adverse effect Wound care and dressing changes Nursing assessment with vital signs Instructions: Thoracic Surgery patients Mandatory frequency Assess and evaluation, 2-3 x a week for one week Initial visit 1. Review post chest surgery instructions chest precautions, Activity, Elastic hose, Incision care, Driving, Incentive spirometry, Smoking, [place] , Work and other) 2. Need Betadine to paint incision 3. Medication reconciliation 4. Importance of follow up care/ check on appointments 5. Make calendar record temperature daily 6. When to call Home nurse, review instructions, phone list 7. Incentive Spirometry, demonstration Visit 1- Begin discharge instruction for patient family and/ or caregiver using teach back method- 1. Signs and symptoms of infection 2. Disease characteristics 3. Medicines and side effects 4. Foods and nutrition/ appetite 5. Infection control/ hand washing/ hygiene Visit 2- Continue teaching 1. Discharge instructions- include additional information on smoking cessation , Visit 3- Continue teaching- 1. Cough and deep breathing, incision monitoring. Incentive spirometry Q1 hr x 10, while awake, also use acapella device hourly whole awake chest wall Precautions: NO pushing or pulling, ( pt must use chest pillow to support chest with all activities and with coughing Daily incision care: ok to shower daily, no tub bath. Wash all incisions with liquid dial soap, clean wash cloth to each site, rinse and pat dry. Observe for any signs of infection, such as drainage which is dark yellow, nam, green or foul smelling. Immediately report to the surgeon any drainage from the chest incision, or legs, and for any abnormal drainage from the chest tube sites. Notify surgeon if any temp >101.5 degrees F. When specialty dressing removed/ or if you do not have one, continue to shower daily as above, then rinse and pat incision dry and paint with betadine daily x 5 days. Allow steri strips to fall off if you have any. Avoid lotions, creams, salves, oils, etc. for the first month For Dr. Blunt patients , please obtain PA & Lat CXR in 2 weeks, results to Dr. Blunt ( prescription will be given) ( ) (Tele: [phone]) , F/U appointment: as per DC instructions: PCP in 2 weeks, CV surgeon 2 weeks, Day Trader 3-4 weeks For any questions regarding incisions/ dressing / meds / post op care or above Symptoms, Tuesday 8am-5pm Heart & Vascular Surgery Office ( Dr. Carmichael & Dr. Blunt), After Hours / Nights (5pm -8am) Weekends and Holidays Please call [facility] Card[facility] ([facility]) Charge Nurse I have seen patient Landon Price on 08/23/17. My clinical findings support the need for the requested home health care services because: Patient has SOB Deconditioned w/ increased weakness I certify that my clinical findings support that this patient is homebound because: Post-op weakness Elizabeth Sood Aug 23, 2017 13:22
[2017-08-23] MEDS ORDERED: Post-op Orders (for Pharmacy) MISC OTHER ONE (14:00)
[2017-08-23] MEDS ORDERED: SODIUM CHLORIDE 0.9% FLUSH 5 ML FLUSH IV FLUSH PRN (14:00)
[2017-08-23] MEDS ORDERED: RESP: ALBUTEROL 2.5 MG/3 ML NEB (PRN) NEB (14:00)
[2017-08-23] MEDS ORDERED: MAGNESIUM HYDROXIDE SUSP 30 ML CUP PO PRN (14:00)
[2017-08-23] MEDS ORDERED: ACETAMINOPHEN 325 MG TAB PO PRN (14:00)
--- NOTE | 2017-08-23 14:03 | PD.OP ---
cc: Prerna Santos MD; Kati Blunt MD Operative Report Date of Surgery: Aug 23, 2017 Preoperative Diagnosis: (1) Recurrent spontaneous pneumothorax Postoperative Diagnosis: same Procedure: Left VATS exploration, bleb resection, pleuradesis Anesthesia: Dr. Erickson Surgeon: Kati Blunt Fire Engine Operator(s): CJ Marina Operation and Findings: After adequate general anesthesia the patient was placed in the right lateral decubitus position and the left chest was prepped and draped in usual manner. A small anterior port incision was performed and electrocautery was used to obtain hemostasis and carry the dissection down through the fascia. A port was placed followed by the camera. Visualization was somewhat very good. Apical blebs were identified. A second posterior and third lateral port was positioned at ~6th intercostal space. Apical blebs were resected using an [place] 45 stapler. The specimen was submitted to Pathology. A mechanical pleuradesis was performed through both ports. A 28F chest tube was positioned through the anterior port, and secured with a 0-silk suture. The staple line was treated with Evicel to seal potential air leaks. The lung was ventilated and a small air leaks was present. The subcutaneous tissues of the ports were approximated running 2-0 Vicryl suture and the skin was approximated using running 4-0 Monocryl subcuticular stitch. Marcaine 0.5% was infiltrated into all port areas. All sponge and history counts were correct at the close the procedure and the patient was transferred to the PACU for recovery purposes. Kati Blunt MD Aug 23, 2017 14:03
[2017-08-23] MEDS ORDERED: DO NOT ADM ANY ANTICOAGULANT DRUGS PRN (14:07)
--- NOTE | 2017-08-23 14:09 | HHI.PR ---
Subjective Remarks This is a pleasant 47 y/o male who came to ER with SOB, sudden onset, he had history of spontaneous left pneumothorax with recent treatment and discharged from [facility], due to Large Pneumothorax on jeancarlos left a chest tube was placed. as we know he has Hypertension COPD, I was called early in the morning by nurse Miss Pedroza to tell me the patient had his Left Chest tube dislodge, recommended to get a CXR that showed Left tension Pneumothorax, as placed a new Chest tube by Cardiothoracic surgery and recommended for VATS procedure for tomorrow 08/23: Stable in his bedroom, discussed with nurse Miss Calvillo, at this time OR personnel in to transfer the patient for procedure as indicated he will have Left VATS exploration, bleb resection and Pleurodesis. No nausea, vomit or diarrhea. Objective Vital Signs Date Time Temp Pulse Resp B/P (MAP) Pulse Ox O2 Delivery O2 Flow Rate FiO2 08/23/17 11:00 61 19 126/86 (99) 08/23/17 11:00 67 08/23/17 10:11 20 08/23/17 10:00 62 08/23/17 09:48 Nasal Cannula 1.00 08/23/17 09:00 64 08/23/17 08:00 58 08/23/17 07:00 97.6 59 19 151/97 (115) 08/23/17 07:00 54 08/23/17 06:02 57 08/23/17 05:50 56 08/23/17 04:19 57 08/23/17 03:47 55 08/23/17 03:20 97.8 59 16 143/91 (108) 100 08/23/17 02:04 59 08/23/17 01:58 58 08/23/17 00:06 57 08/22/17 23:17 58 08/22/17 23:17 98.0 62 17 137/96 (110) 100 08/22/17 22:12 68 08/22/17 21:20 96 Nasal Cannula 3.00 08/22/17 21:00 59 08/22/17 20:00 57 08/22/17 19:15 97.7 59 16 159/98 (118) 99 08/22/17 18:00 64 08/22/17 17:12 74 99 08/22/17 17:00 66 08/22/17 16:00 68 08/22/17 15:40 97.6 138/92 (107) 08/22/17 15:00 71 I/O 08/22/17 08/22/17 08/22/17 08/23/17 08/23/17 08/23/17 07:00 15:00 23:00 07:00 15:00 23:00 Intake Total 720 ml 920 ml 920 ml Output Total 920 ml 800 ml 1170 ml Balance -200 ml 120 ml -250 ml Intake Oral 720 ml 920 ml 920 ml Output Urine Total 900 ml 800 ml 1150 ml Chest Tube Drainage Total 20 ml Drainage Total 20 ml # Bowel Movements 0 0 Result Diagram: 08/19/17 1145 08/19/17 1145 Imaging Last Impressions Chest X-Ray 08/22/17 0000 Signed Impressions: Service Date/Time: Tuesday, August 22, 2017 09:22 - CONCLUSION: Persistent sizable left apical pneumothorax. Resolution of tension, however Arnoldo Gonzalez MD Chest CT 08/19/17 0000 Signed Impressions: Service Date/Time: Saturday, August 19, 2017 17:14 - CONCLUSION: 1. Left apical chest tube in good position. 2. Advanced interstitial fibrosis with multiple subpleural blebs suggesting IPF. 3. There are multiple large emphysematous bleb seen through the lung apices as well. 4. Cardiomegaly. Robert Gregory MD Procedures Chest Tube placement on Left. repeated today. Other Results Laboratory Tests Test 08/19/17 11:45 08/22/17 18:00 White Blood Count 5.4 TH/MM3 Red Blood Count 4.43 MIL/MM3 Hemoglobin 12.4 GM/DL Hematocrit 38.1 % Mean Corpuscular Volume 85.8 FL Mean Corpuscular Hemoglobin 27.9 PG Mean Corpuscular Hemoglobin Concent 32.5 % Red Cell Distribution Width 15.5 % Platelet Count 307 TH/MM3 Mean Platelet Volume 8.8 FL Neutrophils (%) (Auto) 52.8 % Lymphocytes (%) (Auto) 31.4 % Monocytes (%) (Auto) 8.0 % Eosinophils (%) (Auto) 7.1 % Basophils (%) (Auto) 0.7 % Neutrophils # (Auto) 2.8 TH/MM3 Lymphocytes # (Auto) 1.7 TH/MM3 Monocytes # (Auto) 0.4 TH/MM3 Eosinophils # (Auto) 0.4 TH/MM3 Basophils # (Auto) 0.0 TH/MM3 CBC Comment DIFF FINAL Differential Comment Prothrombin Time 11.6 SEC Prothromb Time International Ratio 1.0 RATIO Activated Partial Thromboplast Time 30.2 SEC Blood Urea Nitrogen 6 MG/DL Creatinine 1.00 MG/DL Random Glucose 79 MG/DL Calcium Level 9.0 MG/DL Magnesium Level 2.1 MG/DL Sodium Level 135 MEQ/L Potassium Level 4.0 MEQ/L Chloride Level 103 MEQ/L Carbon Dioxide Level 27.3 MEQ/L Anion Gap 5 MEQ/L Estimat Glomerular Filtration Rate 96 ML/MIN Urine Color YELLOW Urine Turbidity CLEAR Urine pH 6.5 Urine Specific [place] 1.013 Urine Protein NEG mg/dL Urine Glucose (UA) NEG mg/dL Urine Ketones NEG mg/dL Urine Occult Blood NEG Urine Nitrite NEG Urine Bilirubin NEG Urine Urobilinogen LESS THAN 2.0 MG/DL Urine Leukocyte Esterase NEG Urine WBC LESS THAN 1 /hpf Microscopic Urinalysis Comment CULT NOT INDICATED Objective Remarks GENERAL: Well developed in no acute distress. SKIN: Warm and dry. HEAD: Atraumatic. Normocephalic. EYES: Pupils equal and round. No scleral icterus. No injection or drainage. ENT: No nasal bleeding or discharge. Mucous membranes pink and moist. NECK: Trachea midline. No JVD. CARDIOVASCULAR: Regular rate and rhythm. RESPIRATORY: decreased breath sounds on the left chest area with chest tube in place. GASTROINTESTINAL: Abdomen soft, non-tender, nondistended. Hepatic and splenic margins not palpable. MUSCULOSKELETAL: Extremities without clubbing, cyanosis, or edema. No obvious deformities. NEUROLOGICAL: Awake and alert. No obvious cranial nerve deficits. Motor grossly within normal limits. Five out of 5 muscle strength in the arms and legs. Normal speech. PSYCHIATRIC: Appropriate mood and affect; insight and judgment normal. Medications and IVs Current Medications Medications (Trade) Dose Ordered Sig/Susanna Route Start Time Stop Time Status Last Admin (Spiriva Inh) 18 mcg DAILY INH 08/20/17 09:00 08/23/17 10:37 (Percocet 5-325 Mg) 1 tab Q4H PRN PO 08/19/17 14:45 08/23/17 07:48 (Duoneb Neb) 1 ampule Q6HR WHILE AWAKE NEB PRN NEB 08/19/17 18:00 (Dilaudid Pf Inj) 0.2 mg Q3HR PRN IV PUSH 08/20/17 08:45 Cefazolin Sodium/ Dextrose 50 ml @ 100 mls/hr RESIDENTIAL BUILDER IV 08/22/17 10:15 08/26/17 10:14 (Bactroban Nasal 2% Oint) 1 applic BID EACH NARE 08/22/17 10:08/27/17 10:14 (Hibiclens 4% Top Soln) 1 applic RESIDENTIAL BUILDER TOPICAL 08/22/17 10:15 08/29/17 10:14 (fentaNYL INJ) 25 mcg Q2H PRN IV 08/22/17 17:00 08/23/17 10:46 (Albuterol Neb) 2.5 mg Q2HR NEB PRN NEB 08/23/17 14:00 UNV (Pulmicort Respule Neb) 0.5 mg BID NEB 08/23/17 21:00 UNV (NS Flush) 2 ml BID IV FLUSH 08/23/17 21:00 UNV (NS Flush) 2 ml UNSCH PRN IV FLUSH 08/23/17 14:00 UNV (Post-op Orders (for Pharmacy)) STAT ONCE OTHER 08/23/17 14:00 08/23/17 14:01 UNV Cefazolin Sodium 1000 mg/Sodium Chloride 100 ml @ 200 mls/hr Q8H IV 08/23/17 14:00 08/24/17 06:29 UNV (Protonix) 40 mg HS PO 08/23/17 21:00 UNV (Zofran Inj) 4 mg Q6H PRN IV PUSH 08/23/17 14:00 UNV (Surfak) 240 mg HS PO 08/23/17 21:00 UNV (Milk Of Magnesia Liq) 30 ml DAILY PRN PO 08/23/17 14:00 UNV (Tylenol) 650 mg Q4H PRN PO 08/23/17 14:00 UNV (Toradol Inj) 15 mg Q6H IV PUSH 08/23/17 14:00 08/24/17 08:01 UNV A/P Assessment and Plan 47-year-old male presenting with Recurrent spontaneous left pneumothorax keep Chest tube in place, chest CT with blebs, today chest tube dislodge and was replace by Cardiothoracic surgery. Pain Medicine, Cardiothoracic Surgery Doctor Kati Blunt Following, recommended, VATS Bleb resection and Pleurodesis patient accepted will be performed later today. Oxygen to keep oxygen saturation over 90%. COPD. Bronchodilator, Mucolytic and incentive spirometry. Hypertension controlled. 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 TEDs/SCDs. Early ambulation- patient encouraged Discharge Planning Once cleared by Specialists. Kingsley Murphy MD Aug 23, 2017 14:09
[2017-08-23] MEDS ORDERED: *ENALAPRILAT 1.25 MG/ML VIAL PERIprocedural Use ONLY ONE (14:36)
[2017-08-23] MEDS ORDERED: *morphine SULFATE 8 MG/ML PERIprocedure ONLY ONE ×2 (14:58→15:17)
--- NOTE | 2017-08-23 15:02 | RADRPT ---
EXAM DATE/TIME: 08/23/2017 14:30 [facility] COMPARISON: CHEST SINGLE AP, August 22, 2017, 7:46. CT THORAX W/O CONTRAST, August 19, 2017, 17:14. CHEST S NAYANA AP, August 22, 2017, 9:22. INDICATIONS : Post left thoracotomy MEDICAL HISTORY : SURGICAL HISTORY : pneumothorax ENCOUNTER: Subsequent ACUITY: 3 days PAIN SCORE: Non-responsive. LOCATION: Left chest FINDINGS: Interval left thoracotomy with placement of new apical large bore chest tube. Lucency in the right ap ex likely reflect bullous change similar to prior CT exam. Minimal residual left apical pneumothorax. No definitive residual pneumothorax is identified. Additionally, lucency in the mid medial right eric g likely reflects paraseptal emphysema noted on prior CT. Diffuse interstitial prominence and patchy alveolar opacities bilaterally. Continued to decrease its [place] in the left chest wall. CONCLUSION: 1. Interval left thoracotomy with new apical large bore chest tube. Minimal residual left apical pneu mothorax. 2. Stable diffuse interstitial and airspace opacities bilaterally. 3. Stable left chest wall subcutaneous emphysema. Zac Cabrera MD on August 23, 2017 at 14:56 Board Certified Radiologist. This report was verified electronically.
[2017-08-23] MEDS: KETOROLAC TROMETHAMINE 30 MG/ML (IVP) VIAL IV PUSH SCH ×2 (15:33→21:20)
[2017-08-23] MEDS ORDERED: ONDANSETRON HCL 4 MG/2 ML VIAL IV PUSH PRN (18:00)
[2017-08-23] MEDS: SODIUM CHLORIDE 0.9% FLUSH 5 ML FLUSH IV FLUSH SCH (21:00)
[2017-08-23] MEDS ORDERED: DOCUSATE CALCIUM 240 MG CAP PO SCH (21:00)
[2017-08-23] MEDS: HYDROmorphone HCL PF 1 MG/ML VIAL IV PUSH PRN (21:19)
[2017-08-23] MEDS: PANTOPRAZOLE SOD 40 MG DELAYED RELEASE TAB PO SCH (21:22)
[2017-08-23] MEDS: RESP: BUDESONIDE 0.5 MG/2 ML NEB NEB SCH (21:26)
[2017-08-24] VITALS (25 sets, daily range): BP systolic 100–146; BP diastolic 56–86; PULSE 75–114; RESP 16–20; TEMP 97.6–99.9; O2SAT 81–96
[2017-08-24] MEDS: KETOROLAC TROMETHAMINE 30 MG/ML (IVP) VIAL IV PUSH SCH ×2 (01:55→09:03)
[2017-08-24 05:24] LABS: BICARBONATE 28.9 MEQ/L (21.0-32.0); POTASSIUM 4.1 MEQ/L (3.5-5.1)
[2017-08-24 05:43] LABS: AUTOMATED NEUTROPHIL # 7.2 TH/MM3 (1.8-7.7); BASOPHIL % 0.1 % (0.0-2.0); EOSINOPHIL # 0.1 TH/MM3 (0-0.4); EOSINOPHIL % 0.6 % (0.0-4.0); HEMATOCRIT 38.1 % (39.0-51.0); HEMO FLAGS DIFF FINAL; LYMPH % 10.8 % (9.0-44.0); LYMPHOCYTE # 0.9 TH/MM3 (1.0-4.8); MEAN CORPUSCULAR HEMOGLOBIN 28.2 PG (27.0-34.0); MEAN CORPUSCULAR HGB CONC 33.1 % (32.0-36.0); NEUT % 83.5 % (16.0-70.0); PLATELET COUNT 287 TH/MM3 (150-450); RED BLOOD COUNT 4.48 MIL/MM3 (4.50-5.90); RED CELL DISTRIBUTION WIDTH 15.4 % (11.6-17.2); WHITE BLOOD COUNT 8.6 TH/MM3 (4.0-11.0)
--- NOTE | 2017-08-24 06:05 | RADRPT ---
EXAM DATE/TIME: 08/24/2017 05:25 [facility] COMPARISON: CHEST SINGLE AP, August 23, 2017, 14:30. INDICATIONS : Post thoracotomy. MEDICAL HISTORY : None. SURGICAL HISTORY : None. ENCOUNTER: Subsequent ACUITY: 4 - 6 days PAIN SCORE: Non-responsive. LOCATION: Left chest FINDINGS: Left chest tube remains in place, tip at apex. No perceptible pneumothorax currently. Patchy air space opacities persist in both lungs, not significantly changed on the left and perhaps s lightly improved on the right. Left chest wall emphysema persists, slightly decreased. Heart size stable, upper limits of normal mildly enlarged. CONCLUSION: 1. No perceptible left pneumothorax. Left chest tube remains in place. 2. Diffuse airspace opacities are slightly improved. Arnoldo Christensen MD on August 24, 2017 at 6:02 Board Certified Radiologist. This report was verified electronically.
[2017-08-24] MEDS: HYDROmorphone HCL PF 1 MG/ML VIAL IV PUSH PRN ×3 (08:59→23:25)
[2017-08-24] MEDS: RESP: BUDESONIDE 0.5 MG/2 ML NEB NEB SCH ×2 (09:00→19:30)
[2017-08-24] MEDS: MUPIROCIN 2% OINT 1 APPLIC/GM SYR EACH NARE SCH ×2 (09:00→20:03)
[2017-08-24] MEDS: DOCUSATE SODIUM 100 MG CAP PO SCH ×2 (09:00→20:03)
[2017-08-24] MEDS: SODIUM CHLORIDE 0.9% FLUSH 5 ML FLUSH IV FLUSH SCH ×2 (09:00→20:04)
[2017-08-24] MEDS: TIOTROPIUM BROMIDE 18 MCG INH INH SCH (09:02)
[2017-08-24] MEDS: METOPROLOL TARTRATE 25 MG TAB PO SCH ×2 (09:06→20:03)
--- NOTE | 2017-08-24 11:40 | PD.CAR.PN ---
CVT Progress Note Subjective/Hospital Course: 47-year-old male presented to ED with shortness of breath. Sudden onset while at rest , he was recently at [facility] from August 29 for spontaneous left pneumothorax, pigtail cath was placed, he was eval by Dr Arnoldo Vernon for possible surgery, his lung finally re-expanded . He was discharged on September 12 and was doing well until sudden onset of shortness of breath day of admission. He was discharged on Lopressor Spiriva and tramadol when necessary for pain. On evaluation here noted to have a large pneumothorax in the left and chest tube was placed and now patient is comfortable Patient states smoking but quit 6 months ago. Denies any recent traumac/o pain at chest tube site. recent left spontaneous PTX, tobacco abuse ( quit 6 months ago) 08/22/17 Patient developed left tension pneumothorax this morning likely secondary tube dislodgement. Chest tube replaced by Dr. Carmichael emergently with re-expansion of left lung and small apical PTX. Patient has no complaints currently. 08/23 left chest tube remains in place for left thorascopic exploration bleb resection and pleurodesis today surgery: 08/23 Left VATS exploration, bleb resection, pleurodesis 1200crystalloid 30cc EBL 08/24 remains on 02 chest tube to wall suction, no air leak / drained 40cc/ 12 hrs continue pain control pulm toileting nebs, ezpap acapella OOB ambulate Objective: Vital Signs Date Time Temp Pulse Resp B/P (MAP) Pulse Ox O2 Delivery O2 Flow Rate FiO2 08/24/17 11:15 18 08/24/17 11:00 85 08/24/17 11:00 97.7 81 19 102/58 (73) 81 08/24/17 10:05 19 08/24/17 10:03 86 08/24/17 09:45 19 08/24/17 09:01 Nasal Cannula 1.00 08/24/17 09:00 96 08/24/17 08:00 100 08/24/17 07:15 97.6 95 20 111/74 (86) 08/24/17 07:00 103 08/24/17 06:46 95 08/24/17 05:25 106 08/24/17 04:36 104 08/24/17 03:25 99.9 114 18 145/82 (103) 95 08/24/17 03:25 112 08/24/17 02:30 103 08/24/17 01:24 110 08/24/17 00:04 102 08/23/17 23:30 98.6 101 16 139/98 (112) 95 08/23/17 23:00 82 08/23/17 22:00 100 08/23/17 21:30 21 08/23/17 21:00 88 08/23/17 20:20 84 08/23/17 19:30 109 08/23/17 19:30 98.8 95 18 148/91 (110) 95 08/23/17 18:00 77 08/23/17 17:00 74 08/23/17 16:20 97.6 75 19 137/88 (104) 08/23/17 16:20 75 08/23/17 15:45 97.6 68 14 137/86 (103) 100 Nasal Cannula 2 08/23/17 15:30 71 13 150/98 (115) 100 Nasal Cannula 2 08/23/17 15:15 65 13 148/96 (113) 100 Nasal Cannula 2 08/23/17 15:00 71 17 175/98 (123) 100 Nasal Cannula 2 08/23/17 14:45 67 19 161/102 (121) 100 Nasal Cannula 2 08/23/17 14:30 67 19 158/102 (120) 100 Nasal Cannula 2 08/23/17 14:15 68 21 171/104 (126) 100 Simple Mask 5 08/23/17 14:07 97.0 70 15 183/103 (129) 100 Simple Mask 5 Labs: Laboratory Tests Test 08/24/17 04:55 White Blood Count 8.6 TH/MM3 (4.0-11.0) Red Blood Count 4.48 MIL/MM3 (4.50-5.90) Hemoglobin 12.6 GM/DL (13.0-17.0) Hematocrit 38.1 % (39.0-51.0) Mean Corpuscular Volume 85.0 FL (80.0-100.0) Mean Corpuscular Hemoglobin 28.2 PG (27.0-34.0) Mean Corpuscular Hemoglobin Concent 33.1 % (32.0-36.0) Red Cell Distribution Width 15.4 % (11.6-17.2) Platelet Count 287 TH/MM3 (150-450) Mean Platelet Volume 8.1 FL (7.0-11.0) Neutrophils (%) (Auto) 83.5 % (16.0-70.0) Lymphocytes (%) (Auto) 10.8 % (9.0-44.0) Monocytes (%) (Auto) 5.0 % (0.0-8.0) Eosinophils (%) (Auto) 0.6 % (0.0-4.0) Basophils (%) (Auto) 0.1 % (0.0-2.0) Neutrophils # (Auto) 7.2 TH/MM3 (1.8-7.7) Lymphocytes # (Auto) 0.9 TH/MM3 (1.0-4.8) Monocytes # (Auto) 0.4 TH/MM3 (0-0.9) Eosinophils # (Auto) 0.1 TH/MM3 (0-0.4) Basophils # (Auto) 0.0 TH/MM3 (0-0.2) CBC Comment DIFF FINAL Differential Comment Blood Urea Nitrogen 6 MG/DL (7-18) Creatinine 0.93 MG/DL (0.60-1.30) Random Glucose 133 MG/DL (74-106) Calcium Level 8.7 MG/DL (8.5-10.1) Sodium Level 136 MEQ/L (136-145) Potassium Level 4.1 MEQ/L (3.5-5.1) Chloride Level 100 MEQ/L (98-107) Carbon Dioxide Level 28.9 MEQ/L (21.0-32.0) Anion Gap 7 MEQ/L (5-15) Estimat Glomerular Filtration Rate 105 ML/MIN (>89) Result Diagram: 08/24/17 0455 08/24/17 0455 (1) Pneumothorax (2) Recurrent spontaneous pneumothorax Plan: leave chest tube in pulm toileting pain control OOB ambulate path pending Problem Qualifiers (1) Pneumothorax: Qualified Codes: J93.9 - Pneumothorax, unspecified Elizabeth Sood Aug 24, 2017 11:40
--- NOTE | 2017-08-24 12:27 | HHI.PR ---
Subjective Remarks This is a pleasant 47 y/o male who came to ER with SOB, sudden onset, he had history of spontaneous left pneumothorax with recent treatment and discharged from [facility], due to Large Pneumothorax on jeancarlos left a chest tube was placed. as we know he has Hypertension COPD, I was called early in the morning by nurse Miss Pedroza to tell me the patient had his Left Chest tube dislodge, recommended to get a CXR that showed Left tension Pneumothorax, as placed a new Chest tube by Cardiothoracic surgery and recommended for VATS procedure for tomorrow 08/23: Stable in his bedroom, discussed with nurse Miss Calvillo, at this time OR personnel in to transfer the patient for procedure as indicated he will have Left VATS exploration, bleb resection and Pleurodesis. 08/24: Seen in his bedroom stable continue with pain on his Chest area, but happy because he is been smoking and abusing substances almost all her life he started on teen years, and states is happy because is not Cancer. no nausea, vomit or diarrhea. Objective Vital Signs Date Time Temp Pulse Resp B/P (MAP) Pulse Ox O2 Delivery O2 Flow Rate FiO2 08/24/17 12:05 90 08/24/17 11:15 18 08/24/17 11:00 85 08/24/17 11:00 97.7 81 19 102/58 (73) 81 08/24/17 10:05 19 08/24/17 10:03 86 08/24/17 09:45 19 08/24/17 09:01 Nasal Cannula 1.00 08/24/17 09:00 96 08/24/17 08:00 100 08/24/17 07:15 97.6 95 20 111/74 (86) 08/24/17 07:00 103 08/24/17 06:46 95 08/24/17 05:25 106 08/24/17 04:36 104 08/24/17 03:25 99.9 114 18 145/82 (103) 95 08/24/17 03:25 112 08/24/17 02:30 103 08/24/17 01:24 110 08/24/17 00:04 102 08/23/17 23:30 98.6 101 16 139/98 (112) 95 08/23/17 23:00 82 08/23/17 22:00 100 08/23/17 21:30 21 08/23/17 21:00 88 08/23/17 20:20 84 08/23/17 19:30 109 08/23/17 19:30 98.8 95 18 148/91 (110) 95 08/23/17 18:00 77 08/23/17 17:00 74 08/23/17 16:20 97.6 75 19 137/88 (104) 08/23/17 16:20 75 08/23/17 15:45 97.6 68 14 137/86 (103) 100 Nasal Cannula 2 08/23/17 15:30 71 13 150/98 (115) 100 Nasal Cannula 2 08/23/17 15:15 65 13 148/96 (113) 100 Nasal Cannula 2 08/23/17 15:00 71 17 175/98 (123) 100 Nasal Cannula 2 08/23/17 14:45 67 19 161/102 (121) 100 Nasal Cannula 2 08/23/17 14:30 67 19 158/102 (120) 100 Nasal Cannula 2 08/23/17 14:15 68 21 171/104 (126) 100 Simple Mask 5 08/23/17 14:07 97.0 70 15 183/103 (129) 100 Simple Mask 5 I/O 08/23/17 08/23/17 08/23/17 08/24/17 08/24/17 08/24/17 07:00 15:00 23:00 07:00 15:00 23:00 Intake Total 920 ml 1200 ml 240 ml 700 ml Output Total 1170 ml 100 ml 1010 ml 1090 ml Balance -250 ml 1100 ml -770 ml -390 ml Intake Oral 920 ml 240 ml 700 ml Other 1200 ml Output Urine Total 1150 ml 900 ml 1050 ml Chest Tube Drainage Total 70 ml 110 ml Drainage Total 20 ml 40 ml Estimated Blood Loss 30 ml # Voids 0 # Bowel Movements 0 Result Diagram: 08/24/17 0455 08/24/17 0455 Imaging Last Impressions Chest X-Ray 08/24/17 0500 Signed Impressions: Service Date/Time: Thursday, August 24, 2017 05:25 - CONCLUSION: 1. No perceptible left pneumothorax. Left chest tube remains in place. 2. Diffuse airspace opacities are slightly improved. Arnoldo Christensen MD Chest CT 08/19/17 0000 Signed Impressions: Service Date/Time: Saturday, August 19, 2017 17:14 - CONCLUSION: 1. Left apical chest tube in good position. 2. Advanced interstitial fibrosis with multiple subpleural blebs suggesting IPF. 3. There are multiple large emphysematous bleb seen through the lung apices as well. 4. Cardiomegaly. Robert Gregory MD Procedures Chest Tube placement on Left. repeated today. 08/23/17 Left VATS exploration, bleb resection and Pleurodesis. Other Results Laboratory Tests Test 08/19/17 11:45 08/22/17 18:00 08/24/17 04:55 Prothrombin Time 11.6 SEC Prothromb Time International Ratio 1.0 RATIO Activated Partial Thromboplast Time 30.2 SEC Blood Urea Nitrogen 6 MG/DL 6 MG/DL Creatinine 1.00 MG/DL 0.93 MG/DL Random Glucose 79 MG/DL 133 MG/DL Calcium Level 9.0 MG/DL 8.7 MG/DL Magnesium Level 2.1 MG/DL Sodium Level 135 MEQ/L 136 MEQ/L Potassium Level 4.0 MEQ/L 4.1 MEQ/L Chloride Level 103 MEQ/L 100 MEQ/L Carbon Dioxide Level 27.3 MEQ/L 28.9 MEQ/L Urine Color YELLOW Urine Turbidity CLEAR Urine pH 6.5 Urine Specific [place] 1.013 Urine Protein NEG mg/dL Urine Glucose (UA) NEG mg/dL Urine Ketones NEG mg/dL Urine Occult Blood NEG Urine Nitrite NEG Urine Bilirubin NEG Urine Urobilinogen LESS THAN 2.0 MG/DL Urine Leukocyte Esterase NEG Urine WBC LESS THAN 1 /hpf Microscopic Urinalysis Comment CULT NOT INDICATED White Blood Count 8.6 TH/MM3 Red Blood Count 4.48 MIL/MM3 Hemoglobin 12.6 GM/DL Hematocrit 38.1 % Mean Corpuscular Volume 85.0 FL Mean Corpuscular Hemoglobin 28.2 PG Mean Corpuscular Hemoglobin Concent 33.1 % Red Cell Distribution Width 15.4 % Platelet Count 287 TH/MM3 Mean Platelet Volume 8.1 FL Neutrophils (%) (Auto) 83.5 % Lymphocytes (%) (Auto) 10.8 % Monocytes (%) (Auto) 5.0 % Eosinophils (%) (Auto) 0.6 % Basophils (%) (Auto) 0.1 % Neutrophils # (Auto) 7.2 TH/MM3 Lymphocytes # (Auto) 0.9 TH/MM3 Monocytes # (Auto) 0.4 TH/MM3 Eosinophils # (Auto) 0.1 TH/MM3 Basophils # (Auto) 0.0 TH/MM3 CBC Comment DIFF FINAL Differential Comment Anion Gap 7 MEQ/L Estimat Glomerular Filtration Rate 105 ML/MIN Objective Remarks GENERAL: Well developed in no acute distress. SKIN: Warm and dry. HEAD: Atraumatic. Normocephalic. EYES: Pupils equal and round. No scleral icterus. No injection or drainage. ENT: No nasal bleeding or discharge. Mucous membranes pink and moist. NECK: Trachea midline. No JVD. CARDIOVASCULAR: Regular rate and rhythm. RESPIRATORY: decreased breath sounds on the left chest area with chest tube in place. GASTROINTESTINAL: Abdomen soft, non-tender, nondistended. Hepatic and splenic margins not palpable. MUSCULOSKELETAL: Extremities without clubbing, cyanosis, or edema. No obvious deformities. NEUROLOGICAL: Awake and alert. No obvious cranial nerve deficits. Motor grossly within normal limits. Five out of 5 muscle strength in the arms and legs. Normal speech. PSYCHIATRIC: Appropriate mood and affect; insight and judgment normal. Medications and IVs Current Medications Medications (Trade) Dose Ordered Sig/Susanna Route Start Time Stop Time Status Last Admin (Spiriva Inh) 18 mcg DAILY INH 08/20/17 09:00 08/24/17 09:02 (Percocet 5-325 Mg) 1 tab Q4H PRN PO 08/19/17 14:45 08/23/17 07:48 (Dilaudid Pf Inj) 0.2 mg Q3HR PRN IV PUSH 08/20/17 08:45 08/24/17 08:59 Cefazolin Sodium/ Dextrose 50 ml @ 100 mls/hr OB/GYN NURSE IV 08/22/17 10:15 08/26/17 10:14 (Bactroban Nasal 2% Oint) 1 applic BID EACH NARE 08/22/17 10:08/27/17 10:14 (Hibiclens 4% Top Soln) 1 applic OB/GYN NURSE TOPICAL 08/22/17 10:08/29/17 10:14 (fentaNYL INJ) 25 mcg Q2H PRN IV 08/22/17 17:00 08/24/17 10:19 (Albuterol Neb) 2.5 mg Q2HR NEB PRN NEB 08/23/17 14:00 (Pulmicort Respule Neb) 0.5 mg BID NEB NEB 08/23/17 20:00 08/24/17 09:00 (NS Flush) 2 ml BID IV FLUSH 08/23/17 21:00 08/24/17 09:00 (NS Flush) 2 ml UNSCH PRN IV FLUSH 08/23/17 14:00 Cefazolin Sodium 1000 mg/Sodium Chloride 100 ml @ 200 mls/hr Q8H IV 08/23/17 20:00 08/24/17 12:29 08/24/17 11:09 (Protonix) 40 mg HS PO 08/23/17 21:00 08/23/17 21:22 (Zofran Inj) 4 mg Q6H PRN IV PUSH 08/23/17 18:00 (Milk Of Magnesia Liq) 30 ml DAILY PRN PO 08/23/17 14:00 (Tylenol) 650 mg Q4H PRN PO 08/23/17 14:00 Miscellaneous Information ALL NURSING DEPARTME... UNSCH PRN .XX 08/23/17 14:07 08/24/17 14:06 (Percocet 5-325 Mg) 2 tab Q4H PRN PO 08/24/17 08:45 (Colace) 100 mg BID PO 08/24/17 09:00 08/24/17 09:00 (Toradol Inj) 15 mg Q6H PRN IV PUSH 08/24/17 08:45 08/26/17 08:44 (Lopressor) 25 mg Q12HR PO 08/24/17 09:00 08/24/17 09:06 A/P Assessment and Plan 47-year-old male presenting with Recurrent spontaneous left pneumothorax keep Chest tube in place, chest CT with blebs, today chest tube dislodge and was replace by Cardiothoracic surgery. Pain Medicine, Cardiothoracic Surgery Doctor Kati Blunt Following, recommended, VATS Bleb resection and Pleurodesis patient accepted will be performed later today. Oxygen to keep oxygen saturation over 90%. COPD. Bronchodilator, Mucolytic and incentive spirometry. Hypertension controlled. Out of bed to chair- activity PT consult wild life manager. TEDs/SCDs. Early ambulation- patient encouraged Discharge Planning Once cleared by Specialists. Kingsley Murphy MD Aug 24, 2017 12:27
[2017-08-24] MEDS: oxyCODONE/ACETAMINOPHEN 5 MG/325 MG TAB PO PRN ×3 (12:41→23:24)
[2017-08-24] MEDS: PANTOPRAZOLE SOD 40 MG DELAYED RELEASE TAB PO SCH (20:03)
[2017-08-25] VITALS (29 sets, daily range): BP systolic 96–133; BP diastolic 56–71; PULSE 65–91; RESP 16–20; TEMP 97.9–99.1; O2SAT 93–97
[2017-08-25] MEDS: HYDROmorphone HCL PF 1 MG/ML VIAL IV PUSH PRN ×2 (03:11→13:14)
[2017-08-25] MEDS: oxyCODONE/ACETAMINOPHEN 5 MG/325 MG TAB PO PRN ×5 (03:11→21:06)
[2017-08-25] MEDS: RESP: BUDESONIDE 0.5 MG/2 ML NEB NEB SCH ×2 (08:51→20:53)
[2017-08-25] MEDS: KETOROLAC TROMETHAMINE 30 MG/ML (IVP) VIAL IV PUSH PRN ×2 (08:55→17:13)
[2017-08-25] MEDS: SODIUM CHLORIDE 0.9% FLUSH 5 ML FLUSH IV FLUSH SCH ×2 (09:03→21:00)
[2017-08-25] MEDS: MUPIROCIN 2% OINT 1 APPLIC/GM SYR EACH NARE SCH (09:45)
[2017-08-25] MEDS: DOCUSATE SODIUM 100 MG CAP PO SCH ×2 (09:57→21:06)
[2017-08-25] MEDS: METOPROLOL TARTRATE 25 MG TAB PO SCH ×2 (09:57→21:00)
[2017-08-25] MEDS: TIOTROPIUM BROMIDE 18 MCG INH INH SCH (09:59)
--- NOTE | 2017-08-25 12:55 | HHI.PR ---
Subjective Remarks Pain control. No shortness of breath. wanted an extra blanket. Reports still feels weak transferring and ambulating. Objective Vitals Vital Signs Date Time Temp Pulse Resp B/P (MAP) Pulse Ox O2 Delivery O2 Flow Rate FiO2 08/25/17 12:48 77 08/25/17 11:18 74 08/25/17 10:18 84 08/25/17 09:08 91 08/25/17 09:06 97.9 89 16 133/59 (83) 95 08/25/17 08:54 93 08/25/17 07:31 74 08/25/17 06:10 76 08/25/17 05:11 77 08/25/17 04:25 78 08/25/17 04:22 17 08/25/17 03:37 16 08/25/17 03:36 99.1 80 16 99/56 (70) 97 08/25/17 03:35 80 08/25/17 02:18 76 08/25/17 01:03 77 08/25/17 00:05 76 08/25/17 00:04 98.9 79 18 107/71 (83) 96 08/24/17 23:00 82 08/24/17 22:09 78 08/24/17 21:00 78 08/24/17 20:56 18 08/24/17 20:00 80 08/24/17 19:30 Nasal Cannula 1.00 08/24/17 19:15 85 08/24/17 19:15 99.1 96 16 146/86 (106) 96 08/24/17 18:02 79 08/24/17 17:00 75 08/24/17 16:00 79 08/24/17 15:00 97.9 79 20 100/56 (71) 96 08/24/17 15:00 78 08/24/17 14:00 78 08/24/17 13:00 84 I/O 08/24/17 08/24/17 08/24/17 08/25/17 08/25/17 08/25/17 07:00 15:00 23:00 07:00 15:00 23:00 Intake Total 700 ml 100 ml 480 ml 610 ml Output Total 1090 ml 320 ml 1130 ml Balance -390 ml 100 ml 160 ml -520 ml Intake Oral 700 ml 480 ml 610 ml IV Total 100 ml Output Urine Total 1050 ml 300 ml 1100 ml Chest Tube Drainage Total 20 ml 30 ml Drainage Total 40 ml # Bowel Movements 0 3 Result Diagram: 08/24/175 08/24/17 0455 Objective Remarks GENERAL: This is a well-nourished, well-developed patient, in no apparent distress. CARDIOVASCULAR: Regular rate and rhythm Chest wall -left chest tube in place RESPIRATORY: Relatively clear to auscultation bilaterally GASTROINTESTINAL: Abdomen soft, non-tender, nondistended. Normal active bowel sounds MUSCULOSKELETAL: Extremities without clubbing, cyanosis, or edema. NEURO: Alert & Oriented x4 to person, place, time, situation. Moves all ext x4 Procedures 08/25 Left VATS exploration, bleb resection, pleuradesis A/P Problem List: (1) Recurrent spontaneous pneumothorax ICD Code: J93.83 - Other pneumothorax Status: Acute Assessment and Plan 47-year-old male presenting with Recurrent spontaneous left pneumothorax status post operative day #2 Left VATS exploration, bleb resection, pleuradesis Currently left Chest tube in place - management per Cardiothoracic surgery. Continue Pain Medicine, Oxygen to keep oxygen saturation over 90%. Encourage activity, PT consult evaluate and treat COPD, chronic.Nonacute exacerbation Bronchodilator, encourage incentive spirometry. Hypertension, essential overall controlled. Out of bed to chair- activity PT consult DVT prophylaxisTEDs/SCDs. Early ambulation Discharge Planning Home when stable Chiquita Cherry MD Aug 25, 2017 12:55
[2017-08-25] MEDS ORDERED: MAGNESIUM CITRATE SOLN 300 ML BTL PO ONE (14:45)
--- NOTE | 2017-08-25 18:23 | PD.CAR.PN ---
CVT Progress Note Subjective/Hospital Course: 47-year-old male presented to ED with shortness of breath. Sudden onset while at rest , he was recently at [facility] from August 29 for spontaneous left pneumothorax, pigtail cath was placed, he was eval by Dr Arnoldo Vernon for possible surgery, his lung finally re-expanded . He was discharged on September 12 and was doing well until sudden onset of shortness of breath day of admission. He was discharged on Lopressor Spiriva and tramadol when necessary for pain. On evaluation here noted to have a large pneumothorax in the left and chest tube was placed and now patient is comfortable Patient states smoking but quit 6 months ago. Denies any recent traumac/o pain at chest tube site. recent left spontaneous PTX, tobacco abuse ( quit 6 months ago) 08/22/17 Patient developed left tension pneumothorax this morning likely secondary tube dislodgement. Chest tube replaced by Dr. Carmichael emergently with re-expansion of left lung and small apical PTX. Patient has no complaints currently. 08/23 left chest tube remains in place for left thorascopic exploration bleb resection and pleurodesis today surgery: 08/23 Left VATS exploration, bleb resection, pleurodesis 1200crystalloid 30cc EBL 08/24 remains on 02 chest tube to wall suction, no air leak / drained 40cc/ 12 hrs continue pain control pulm toileting nebs, ezpap acapella OOB ambulate 08/25 no air leak in chest tube chamber, placed to water seal recheck cxr in am , if no PTX will dc chest tube no BM, add citrate of mag OOB ambulate Objective: GENERAL: SKIN: Warm and dry. incision intact and well approximated right postero chest wall prior chest tube site intact and well approximated HEAD: Normocephalic. EYES: No scleral icterus. No injection or drainage. NECK: Supple, trachea midline. No JVD or lymphadenopathy. CARDIOVASCULAR: Regular rate and rhythm without murmurs, gallops, or rubs. RESPIRATORY: Breath sounds equal bilaterally. No accessory muscle use. chest tube to wter seal, no air leak minimal drainage GASTROINTESTINAL: Abdomen soft, non-tender, nondistended. MUSCULOSKELETAL: No cyanosis, or edema. BACK: Nontender without obvious deformity. No CVA tenderness. Vital Signs Date Time Temp Pulse Resp B/P (MAP) Pulse Ox O2 Delivery O2 Flow Rate FiO2 08/25/17 18:20 76 08/25/17 17:29 76 08/25/17 17:20 97.9 82 18 115/69 (84) 95 08/25/17 16:06 73 08/25/17 15:51 75 08/25/17 14:18 75 08/25/17 13:05 72 08/25/17 13:05 98.3 89 16 106/65 (79) 95 08/25/17 12:48 77 08/25/17 11:18 74 08/25/17 10:18 84 08/25/17 09:08 91 08/25/17 09:06 97.9 89 16 133/59 (83) 95 08/25/17 08:54 93 08/25/17 07:31 74 08/25/17 06:10 76 08/25/17 05:11 77 08/25/17 04:25 78 08/25/17 04:22 17 08/25/17 03:37 16 08/25/17 03:36 99.1 80 16 99/56 (70) 97 08/25/17 03:35 80 08/25/17 02:18 76 08/25/17 01:03 77 08/25/17 00:05 76 08/25/17 00:04 98.9 79 18 107/71 (83) 96 08/24/17 23:00 82 08/24/17 22:09 78 08/24/17 21:00 78 08/24/17 20:56 18 08/24/17 20:00 80 08/24/17 19:30 Nasal Cannula 1.00 08/24/17 19:15 85 08/24/17 19:15 99.1 96 16 146/86 (106) 96 Result Diagram: 08/24/17 0455 08/24/17 0455 (1) Pneumothorax (2) Recurrent spontaneous pneumothorax Plan: leave chest tube in pulm toileting pain control OOB ambulate path pending Problem Qualifiers (1) Pneumothorax: Qualified Codes: J93.9 - Pneumothorax, unspecified Elizabeth Sood Aug 25, 2017 18:23
[2017-08-25] MEDS: PANTOPRAZOLE SOD 40 MG DELAYED RELEASE TAB PO SCH (21:06)
[2017-08-26] VITALS (27 sets, daily range): BP systolic 115–174; BP diastolic 70–98; PULSE 63–95; RESP 18–20; TEMP 97.6–98.5; O2SAT 96–100
[2017-08-26] MEDS: KETOROLAC TROMETHAMINE 30 MG/ML (IVP) VIAL IV PUSH PRN (00:48)
[2017-08-26] MEDS: HYDROmorphone HCL PF 1 MG/ML VIAL IV PUSH PRN ×4 (00:49→21:08)
[2017-08-26] MEDS: oxyCODONE/ACETAMINOPHEN 5 MG/325 MG TAB PO PRN ×5 (02:51→23:29)
--- NOTE | 2017-08-26 05:28 | RADRPT ---
EXAM DATE/TIME: 08/26/2017 04:47 [place] COMPARISON: CHEST SINGLE AP, August 24, 2017, 5:25. INDICATIONS : Evaluate for pnuemothorax, left side chest tube MEDICAL HISTORY : None. SURGICAL HISTORY : None. ENCOUNTER: Subsequent ACUITY: 1 week PAIN SCORE: 7/10 LOCATION: Bilateral chest FINDINGS: A single portable frontal view of the chest shows a left thoracostomy tube. Surgical clips at the lef t apex. No appreciable pneumothorax. Diffuse bilateral pulmonary infiltrates are unchanged. Heart rem ains mildly enlarged. No effusions. CONCLUSION: Left thoracostomy tube without discernible pneumothorax. Unchanged bilateral pulmonary infiltrates wi th cardiomegaly. Inder Becerra Jr., MD on August 26, 2017 at 5:26 Board Certified Radiologist. This report was verified electronically.
[2017-08-26] MEDS: RESP: BUDESONIDE 0.5 MG/2 ML NEB NEB SCH ×2 (07:26→19:33)
[2017-08-26] MEDS: MUPIROCIN 2% OINT 1 APPLIC/GM SYR EACH NARE SCH ×2 (09:00→21:09)
[2017-08-26] MEDS: SODIUM CHLORIDE 0.9% FLUSH 5 ML FLUSH IV FLUSH SCH ×2 (09:00→21:00)
[2017-08-26] MEDS: DOCUSATE SODIUM 100 MG CAP PO SCH ×2 (09:00→21:09)
[2017-08-26] MEDS: TIOTROPIUM BROMIDE 18 MCG INH INH SCH (09:30)
[2017-08-26] MEDS: METOPROLOL TARTRATE 25 MG TAB PO SCH ×2 (09:37→21:09)
--- NOTE | 2017-08-26 14:56 | HHI.PR ---
Subjective Remarks Overall pain control. Once a throat lozenge Objective Vitals Vital Signs Date Time Temp Pulse Resp B/P (MAP) Pulse Ox O2 Delivery O2 Flow Rate FiO2 08/26/17 13:00 74 08/26/17 12:00 98.4 77 18 128/79 (95) 98 08/26/17 12:00 78 08/26/17 11:00 92 08/26/17 11:00 18 08/26/17 10:00 86 08/26/17 09:00 92 08/26/17 08:00 88 08/26/17 07:27 98 Nasal Cannula 2.00 08/26/17 07:00 97.6 95 20 174/98 (123) 98 08/26/17 07:00 63 08/26/17 06:00 80 08/26/17 05:00 75 08/26/17 04:00 66 08/26/17 03:00 66 08/26/17 03:00 98.1 75 20 115/78 (90) 96 08/26/17 02:04 66 08/26/17 01:00 70 08/26/17 00:00 97.9 75 20 115/70 (85) 96 08/26/17 00:00 75 08/25/17 23:00 70 08/25/17 22:00 70 08/25/17 21:00 65 08/25/17 20:57 97 08/25/17 20:00 66 08/25/17 20:00 98.2 66 20 96/62 (73) 95 08/25/17 19:00 67 08/25/17 18:20 76 08/25/17 17:29 76 08/25/17 17:20 97.9 82 18 115/69 (84) 95 08/25/17 16:06 73 08/25/17 15:51 75 I/O 08/25/17 08/25/17 08/25/17 08/26/17 08/26/17 08/26/17 07:00 15:00 23:00 07:00 15:00 23:00 Intake Total 610 ml 960 ml 720 ml Output Total 1130 ml 520 ml 820 ml Balance -520 ml 440 ml -100 ml Intake Oral 610 ml 960 ml 720 ml Output Urine Total 1100 ml 450 ml 800 ml Chest Tube Drainage Total 30 ml 70 ml 20 ml # Voids 1 # Bowel Movements 3 Result Diagram: 08/24/1745408/24/17454 Objective Remarks GENERAL: This is a well-nourished, well-developed patient, in no apparent distress. CARDIOVASCULAR: Regular rate and rhythm RESPIRATORY: Relatively clear to auscultation bilaterally GASTROINTESTINAL: Abdomen soft, non-tender, nondistended. Normal active bowel sounds MUSCULOSKELETAL: Extremities without clubbing, cyanosis, or edema. NEURO: Alert & Oriented x4 to person, place, time, situation. Moves all ext x4 Procedures 08/25 Left VATS exploration, bleb resection, pleuradesis A/P Problem List: (1) Recurrent spontaneous pneumothorax ICD Code: J93.83 - Other pneumothorax Status: Acute Assessment and Plan 47-year-old male presenting with Recurrent spontaneous left pneumothorax status post operative day #3 Left VATS exploration, bleb resection, pleuradesis Currently left Chest tube and now removed - management per Cardiothoracic surgery. Continue Pain Medicine, Oxygen to keep oxygen saturation over 90%. Encourage activity, COPD, chronic.Nonacute exacerbation Bronchodilator, encourage incentive spirometry. Hypertension, essential overall controlled. Out of bed to chair- activity PT consult DVT prophylaxis-TEDs/SCDs. Early ambulation Discharge Planning Home when stable Chiquita Cherry MD Aug 26, 2017 14:56
--- NOTE | 2017-08-26 15:21 | PD.CAR.PN ---
CVT Progress Note Subjective/Hospital Course: 47-year-old male presented to ED with shortness of breath. Sudden onset while at rest , he was recently at [facility] from August 29 for spontaneous left pneumothorax, pigtail cath was placed, he was eval by Dr Arnoldo Vernon for possible surgery, his lung finally re-expanded . He was discharged on September 12 and was doing well until sudden onset of shortness of breath day of admission. He was discharged on Lopressor Spiriva and tramadol when necessary for pain. On evaluation here noted to have a large pneumothorax in the left and chest tube was placed and now patient is comfortable Patient states smoking but quit 6 months ago. Denies any recent traumac/o pain at chest tube site. recent left spontaneous PTX, tobacco abuse ( quit 6 months ago) 08/22/17 Patient developed left tension pneumothorax this morning likely secondary tube dislodgement. Chest tube replaced by Dr. Carmichael emergently with re-expansion of left lung and small apical PTX. Patient has no complaints currently. 08/23 left chest tube remains in place for left thorascopic exploration bleb resection and pleurodesis today surgery: 08/23 Left VATS exploration, bleb resection, pleurodesis 1200crystalloid 30cc EBL 08/24 remains on 02 chest tube to wall suction, no air leak / drained 40cc/ 12 hrs continue pain control pulm toileting nebs, ezpap acapella OOB ambulate 08/25 no air leak in chest tube chamber, placed to water seal recheck cxr in am , if no PTX will dc chest tube no BM, add citrate of mag OOB ambulate 08/26 CXR no PTX chest tube removed without difficulty weaning off 02 for dc in am pain control Objective: GENERAL: SKIN: Warm and dry. incision intact left lateral chest wall HEAD: Normocephalic. EYES: No scleral icterus. No injection or drainage. NECK: Supple, trachea midline. No JVD or lymphadenopathy. CARDIOVASCULAR: Regular rate and rhythm without murmurs, gallops, or rubs. RESPIRATORY: Breath sounds equal bilaterally. No accessory muscle use. chest tube removed without difficulty GASTROINTESTINAL: Abdomen soft, non-tender, nondistended. MUSCULOSKELETAL: No cyanosis, or edema. BACK: Nontender without obvious deformity. No CVA tenderness. Vital Signs Date Time Temp Pulse Resp B/P (MAP) Pulse Ox O2 Delivery O2 Flow Rate FiO2 08/26/17 15:08 80 08/26/17 14:00 78 08/26/17 13:00 74 08/26/17 12:00 98.4 77 18 128/79 (95) 98 08/26/17 12:00 78 08/26/17 11:00 92 08/26/17 11:00 18 08/26/17 10:00 86 08/26/17 09:00 92 08/26/17 08:00 88 08/26/17 07:27 98 Nasal Cannula 2.00 08/26/17 07:00 97.6 95 20 174/98 (123) 98 08/26/17 07:00 63 08/26/17 06:00 80 08/26/17 05:00 75 08/26/17 04:00 66 08/26/17 03:00 66 08/26/17 03:00 98.1 75 20 115/78 (90) 96 08/26/17 02:04 66 08/26/17 01:00 70 08/26/17 00:00 97.9 75 20 115/70 (85) 96 08/26/17 00:00 75 08/25/17 23:00 70 08/25/17 22:00 70 08/25/17 21:00 65 08/25/17 20:57 97 08/25/17 20:00 66 08/25/17 20:00 98.2 66 20 96/62 (73) 95 08/25/17 19:00 67 08/25/17 18:20 76 08/25/17 17:29 76 08/25/17 17:20 97.9 82 18 115/69 (84) 95 08/25/17 16:06 73 08/25/17 15:51 75 Result Diagram: 08/24/17 0455 08/24/17 0455 (1) Pneumothorax (2) Recurrent spontaneous pneumothorax Plan: chest tube removed f/u cxr in am , if stable then ok to dc home pulm toileting pain control OOB ambulate path : resp bronchiolitis , interstitial lung dz, extensive fibrosis will need f/u with Dr Coy as outpt Problem Qualifiers (1) Pneumothorax: Qualified Codes: J93.9 - Pneumothorax, unspecified Elizabeth Sood Aug 26, 2017 15:21
[2017-08-26] MEDS ORDERED: OXYC1TAB63 PO (15:27)
[2017-08-26] MEDS ORDERED: METO25TA3 PO (15:27)
[2017-08-26] MEDS ORDERED: DOCU1CAP39 PO (15:27)
[2017-08-26] MEDS ORDERED: SPIRCAP INH (15:27)
[2017-08-26] MEDS ORDERED: VENTAER INH (15:27)
--- NOTE | 2017-08-26 15:31 | HHI.DS ---
Discharge Summary Admission Date Aug 19, 2017 at 13:22 Discharge Date: Aug 27, 2017 Admitting Diagnosis pneumothorax (1) Recurrent spontaneous pneumothorax ICD Codes: J93.83 - Other pneumothorax Status: Acute (2) Left VATS exploration, bleb resection, pleuradesis Diagnosis: Secondary (3) Pneumothorax ICD Codes: J93.9 - Pneumothorax, unspecified Status: Acute Procedures Chest Tube placement on Left. repeated today. 08/23/17 Left VATS exploration, bleb resection and Pleurodesis. Brief History 47-year-old male presented to ED with shortness of breath. Sudden onset while at rest , he was recently at [facility] from August 29 for spontaneous left pneumothorax, pigtail cath was placed, he was eval by Dr Arnoldo Vernon for possible surgery, his lung finally re-expanded . He was discharged on September 12 and was doing well until sudden onset of shortness of breath day of admission. He was discharged on Lopressor Spiriva and tramadol when necessary for pain. On evaluation here noted to have a large pneumothorax in the left and chest tube was placed and now patient is comfortable Patient states smoking but quit 6 months ago. Denies any recent traumac/o pain at chest tube site. recent left spontaneous PTX, tobacco abuse ( quit 6 months ago) 08/22/17 Patient developed left tension pneumothorax this morning likely secondary tube dislodgement. Chest tube replaced by Dr. Carmichael emergently with re-expansion of left lung and small apical PTX. Patient has no complaints currently. CBC/BMP: 08/24/17 0455 08/24/17 0455 Significant Findings Laboratory Tests Test 08/24/17 04:55 Red Blood Count 4.48 MIL/MM3 (4.50-5.90) Hemoglobin 12.6 GM/DL (13.0-17.0) Hematocrit 38.1 % (39.0-51.0) Neutrophils (%) (Auto) 83.5 % (16.0-70.0) Lymphocytes # (Auto) 0.9 TH/MM3 (1.0-4.8) Blood Urea Nitrogen 6 MG/DL (7-18) Random Glucose 133 MG/DL (74-106) Imaging Last Impressions Chest X-Ray 08/26/17 0600 Signed Impressions: Service Date/Time: Saturday, August 26, 2017 04:47 - CONCLUSION: Left thoracostomy tube without discernible pneumothorax. Unchanged bilateral pulmonary infiltrates with cardiomegaly. Inder Becerra Jr., MD Chest CT 08/19/17 0000 Signed Impressions: Service Date/Time: Saturday, August 19, 2017 17:14 - CONCLUSION: 1. Left apical chest tube in good position. 2. Advanced interstitial fibrosis with multiple subpleural blebs suggesting IPF. 3. There are multiple large emphysematous bleb seen through the lung apices as well. 4. Cardiomegaly. Robert Gregory MD PE at Discharge GENERAL: SKIN: Warm and dry. incisions intact left chest wall HEAD: Normocephalic. EYES: No scleral icterus. No injection or drainage. NECK: Supple, trachea midline. No JVD or lymphadenopathy. CARDIOVASCULAR: Regular rate and rhythm without murmurs, gallops, or rubs. RESPIRATORY: Breath sounds equal bilaterally. No accessory muscle use. diminsihed in bases, dressing in place to chest tube site GASTROINTESTINAL: Abdomen soft, non-tender, nondistended. MUSCULOSKELETAL: No cyanosis, or edema. BACK: Nontender without obvious deformity. No CVA tenderness. Hospital Course 08/22/17 Patient developed left tension pneumothorax this morning likely secondary tube dislodgement. Chest tube replaced by Dr. Carmichael emergently with re-expansion of left lung and small apical PTX. Patient has no complaints currently. 08/23 left chest tube remains in place for left thorascopic exploration bleb resection and pleurodesis today surgery: 08/23 Left VATS exploration, bleb resection, pleurodesis 1200crystalloid 30cc EBL 08/24 remains on 02 chest tube to wall suction, no air leak / drained 40cc/ 12 hrs continue pain control pulm toileting nebs, ezpap acapella OOB ambulate 08/25 no air leak in chest tube chamber, placed to water seal recheck cxr in am , if no PTX will dc chest tube no BM, add citrate of mag OOB ambulate Pt Condition on Discharge: Good Discharge Disposition: Disch w/ Home Health Serv Discharge Instructions DIET: Follow Instructions for: As Tolerated, No Restrictions Activities you can perform: Shower Only-No Bath Activities to avoid: Strenuous Activity, Driving Additional Activity Instructio: no lifting > 8 lbs or gallon of milk Follow up Referrals: Appointment for Follow Up Appointment for Follow Up New Orders: X-RAY CHEST PA & LAT - 2 Weeks New Medications: Albuterol 18 GM Inh (Ventolin Hfa 18 GM Inh) 90 Mcg/Act Aer 2 PUFF INH Q4-6H PRN for SHORTNESS OF BREATH, #1 INHALER 1 Refill Docusate Sodium (Dok) 100 Mg Cap 100 MG PO BID for Constipation, #60 CAP 0 Refills Metoprolol Tartrate (Metoprolol Tartrate) 25 Mg Tab 25 MG PO Q12HR for Blood Pressure Management, #60 TAB 1 Refill Oxycodone-Acetaminophen (Oxycodone-Acetaminophen) 5-325 mg Tab 1 TAB PO Q6H PRN for PAIN 5-7, #40 TAB 0 Refills Tiotropium Inh (Spiriva Handihaler) 18 Mcg Cap 18 MCG INH DAILY for Asthma Management, #1 CAP 1 Refill 1 capsule = 18 mcg Elizabeth Sood Aug 26, 2017 15:31
--- NOTE | 2017-08-26 15:32 | PD.CAR.PN ---
CVT Progress Note Subjective/Hospital Course: 47-year-old male presented to ED with shortness of breath. Sudden onset while at rest , he was recently at [facility] from August 29 for spontaneous left pneumothorax, pigtail cath was placed, he was eval by Dr Arnoldo Vernon for possible surgery, his lung finally re-expanded . He was discharged on September 12 and was doing well until sudden onset of shortness of breath day of admission. He was discharged on Lopressor Spiriva and tramadol when necessary for pain. On evaluation here noted to have a large pneumothorax in the left and chest tube was placed and now patient is comfortable Patient states smoking but quit 6 months ago. Denies any recent traumac/o pain at chest tube site. recent left spontaneous PTX, tobacco abuse ( quit 6 months ago) 08/22/17 Patient developed left tension pneumothorax this morning likely secondary tube dislodgement. Chest tube replaced by Dr. Carmichael emergently with re-expansion of left lung and small apical PTX. Patient has no complaints currently. 08/23 left chest tube remains in place for left thorascopic exploration bleb resection and pleurodesis today surgery: 08/23 Left VATS exploration, bleb resection, pleurodesis 1200crystalloid 30cc EBL 08/24 remains on 02 chest tube to wall suction, no air leak / drained 40cc/ 12 hrs continue pain control pulm toileting nebs, ezpap acapella OOB ambulate 08/25 no air leak in chest tube chamber, placed to water seal recheck cxr in am , if no PTX will dc chest tube no BM, add citrate of mag OOB ambulate 08/26 CXR no PTX chest tube removed without difficulty weaning off 02 for dc in am pain control Objective: Vital Signs Date Time Temp Pulse Resp B/P (MAP) Pulse Ox O2 Delivery O2 Flow Rate FiO2 08/26/17 15:08 80 08/26/17 14:00 78 08/26/17 13:00 74 08/26/17 12:00 98.4 77 18 128/79 (95) 98 08/26/17 12:00 78 08/26/17 11:00 92 08/26/17 11:00 18 08/26/17 10:00 86 08/26/17 09:00 92 08/26/17 08:00 88 08/26/17 07:27 98 Nasal Cannula 2.00 08/26/17 07:00 97.6 95 20 174/98 (123) 98 08/26/17 07:00 63 08/26/17 06:00 80 08/26/17 05:00 75 08/26/17 04:00 66 08/26/17 03:00 66 08/26/17 03:00 98.1 75 20 115/78 (90) 96 08/26/17 02:04 66 08/26/17 01:00 70 08/26/17 00:00 97.9 75 20 115/70 (85) 96 08/26/17 00:00 75 08/25/17 23:00 70 08/25/17 22:00 70 08/25/17 21:00 65 08/25/17 20:57 97 08/25/17 20:00 66 08/25/17 20:00 98.2 66 20 96/62 (73) 95 08/25/17 19:00 67 08/25/17 18:20 76 08/25/17 17:29 76 08/25/17 17:20 97.9 82 18 115/69 (84) 95 08/25/17 16:06 73 08/25/17 15:51 75 Result Diagram: 08/24/17 0455 08/24/17 0455 (1) Pneumothorax (2) Recurrent spontaneous pneumothorax Plan: chest tube removed f/u cxr in am , if stable then ok to dc home pulm toileting pain control OOB ambulate path : resp bronchiolitis , interstitial lung dz, extensive fibrosis will need f/u with Dr Coy as outpt Problem Qualifiers (1) Pneumothorax: Qualified Codes: J93.9 - Pneumothorax, unspecified Elizabeth Sood Aug 26, 2017 15:32
[2017-08-26] MEDS: BENZOCAINE-MENTHOL (SUGAR FREE) 15 MG-3.6 MG LOZENGE BUCCAL PRN ×2 (16:11→22:45)
[2017-08-26] MEDS: PANTOPRAZOLE SOD 40 MG DELAYED RELEASE TAB PO SCH (21:08)
[2017-08-27] VITALS (20 sets, daily range): BP systolic 112–143; BP diastolic 69–90; PULSE 56–78; RESP 16–20; TEMP 97.4–98.2; O2SAT 95–99
[2017-08-27] MEDS: HYDROmorphone HCL PF 1 MG/ML VIAL IV PUSH PRN (03:16)
[2017-08-27] MEDS: oxyCODONE/ACETAMINOPHEN 5 MG/325 MG TAB PO PRN ×3 (04:01→12:45)
[2017-08-27] MEDS: BENZOCAINE-MENTHOL (SUGAR FREE) 15 MG-3.6 MG LOZENGE BUCCAL PRN (04:13)
[2017-08-27] MEDS: TIOTROPIUM BROMIDE 18 MCG INH INH SCH (08:31)
[2017-08-27] MEDS: METOPROLOL TARTRATE 25 MG TAB PO SCH (08:32)
[2017-08-27] MEDS: MUPIROCIN 2% OINT 1 APPLIC/GM SYR EACH NARE SCH (08:32)
[2017-08-27] MEDS: DOCUSATE SODIUM 100 MG CAP PO SCH (08:32)
[2017-08-27] MEDS: SODIUM CHLORIDE 0.9% FLUSH 5 ML FLUSH IV FLUSH SCH (08:32)
--- NOTE | 2017-08-27 09:21 | PD.CAR.PN ---
CVT Progress Note Subjective/Hospital Course: 47-year-old male presented to ED with shortness of breath. Sudden onset while at rest , he was recently at [facility] from August 29 for spontaneous left pneumothorax, pigtail cath was placed, he was eval by Dr Arnoldo Vernon for possible surgery, his lung finally re-expanded . He was discharged on September 12 and was doing well until sudden onset of shortness of breath day of admission. He was discharged on Lopressor Spiriva and tramadol when necessary for pain. On evaluation here noted to have a large pneumothorax in the left and chest tube was placed and now patient is comfortable Patient states smoking but quit 6 months ago. Denies any recent traumac/o pain at chest tube site. recent left spontaneous PTX, tobacco abuse ( quit 6 months ago) 08/22/17 Patient developed left tension pneumothorax this morning likely secondary tube dislodgement. Chest tube replaced by Dr. Carmichael emergently with re-expansion of left lung and small apical PTX. Patient has no complaints currently. 08/23 left chest tube remains in place for left thorascopic exploration bleb resection and pleurodesis today surgery: 08/23 Left VATS exploration, bleb resection, pleurodesis 1200crystalloid 30cc EBL 08/24 remains on 02 chest tube to wall suction, no air leak / drained 40cc/ 12 hrs continue pain control pulm toileting nebs, ezpap acapella OOB ambulate 08/25 no air leak in chest tube chamber, placed to water seal recheck cxr in am , if no PTX will dc chest tube no BM, add citrate of mag OOB ambulate 08/26 CXR no PTX chest tube removed without difficulty weaning off 02 for dc in am pain control 08/27 Doing well Discharge home Objective: Vital Signs Date Time Temp Pulse Resp B/P (MAP) Pulse Ox O2 Delivery O2 Flow Rate FiO2 08/27/17 07:01 62 08/27/17 06:00 65 08/27/17 05:01 66 08/27/17 04:00 66 08/27/17 03:21 98.2 71 20 112/69 (83) 96 08/27/17 03:00 64 08/27/17 02:00 64 08/27/17 01:00 71 08/27/17 00:00 70 08/27/17 00:00 98.2 73 20 124/78 (93) 96 08/26/17 23:00 71 08/26/17 22:00 76 08/26/17 21:00 75 08/26/17 20:00 98.5 74 20 140/82 (101) 100 08/26/17 20:00 70 08/26/17 19:33 98 21 08/26/17 19:00 73 08/26/17 18:00 90 08/26/17 17:00 76 08/26/17 16:50 20 08/26/17 16:00 76 08/26/17 15:45 18 08/26/17 15:25 98.4 78 18 121/77 (92) 96 08/26/17 15:08 80 08/26/17 14:00 78 08/26/17 13:00 74 08/26/17 12:00 98.4 77 18 128/79 (95) 98 08/26/17 12:00 78 08/26/17 11:00 92 08/26/17 10:00 86 Result Diagram: 08/24/17 0455 08/24/17 0455 (1) Pneumothorax (2) Recurrent spontaneous pneumothorax Plan: chest tube removed f/u cxr in am , if stable then ok to dc home pulm toileting pain control OOB ambulate path : resp bronchiolitis , interstitial lung dz, extensive fibrosis will need f/u with Dr Coy as outpt Problem Qualifiers (1) Pneumothorax: Qualified Codes: J93.9 - Pneumothorax, unspecified Ken Carmichael MD Aug 27, 2017 09:21
[2017-08-27] MEDS: RESP: BUDESONIDE 0.5 MG/2 ML NEB NEB SCH (09:26)
== END 2017-08-27 17:35 | disposition home health service (06) | DRG 164 ==
LOC: NEPE 11:17 → NEDA 13:22 → N07B 17:25 → HCPC 08-21 15:05
PROVIDERS: ADMIT Hospitalist; ATTEND Hospitalist
PROC: 0W9B30Z Drainage of Left Pleural Cavity with Drainage Device, Percutaneous Approach (ICD-10-PCS; 2017-08-19)
PROC: 0W9B30Z Drainage of Left Pleural Cavity with Drainage Device, Percutaneous Approach (ICD-10-PCS; 2017-08-22)
PROC: 0W9B40Z Drainage of Left Pleural Cavity with Drainage Device, Percutaneous Endoscopic Approach (ICD-10-PCS; 2017-08-23)
PROC: 0B5P4ZZ Destruction of Left Pleura, Percutaneous Endoscopic Approach (ICD-10-PCS; 2017-08-23)
PROC: 0BBG4ZZ Excision of Left Upper Lung Lobe, Percutaneous Endoscopic Approach (ICD-10-PCS; principal; 2017-08-23 11:42)
DX: J93.83 Other pneumothorax (principal); T85.628A Displacement of other specified internal prosthetic devices, implants and grafts, initial encounter; J93.0 Spontaneous tension pneumothorax; J21.9 Acute bronchiolitis, unspecified; J44.1 Chronic obstructive pulmonary disease with (acute) exacerbation; I10 Essential (primary) hypertension; Z87.891 Personal history of nicotine dependence; J43.9 Emphysema, unspecified; J84.10 Pulmonary fibrosis, unspecified
CPT/HCPCS: 32551; 71010; 71250; 80048; 81001; 83735; 85025; 85610; 85730; 88305; 88307; 93005; 94150; 94640; 94664; 94667; 94668; 96374; J0131; J0690; J1170; J1885; J2250; J2270; J2370; J2405; J3010; J7120; J7613; J7626

== ENCOUNTER 2017-09-12 00:44 | Inpatient (IN) | payer SELFPAY ==
[2017-09-12] VITALS (9 sets, daily range): BP systolic 127–164; BP diastolic 82–110; PULSE 68–117; RESP 16–21; TEMP 97.5–98.5; O2SAT 92–98
[~2017-09-12] VITALS: Ht 188 cm; Wt 80.5 kg
[~2017-09-12 00:44] MED LIST: DOCU1CAP39 PO; METO25TA3 PO; OXYC1TAB63 PO; SPIRCAP INH; VENTAER INH
--- NOTE | 2017-09-12 00:58 | PD ---
HPI Chief Complaint: Respiratory Symptoms Time Seen by Provider: 00:50 Travel History International Travel<30 days: No Contact w/Intl Traveler<30days: No Traveled to known affect area: No History of Present Illness HPI 47-year-old male with history of recurrent pneumothorax on the left, most recently was on 08/19/17 with a chest tube was placed in the emergency department and the patient was admitted and had VATS/bleb resection/pleurodesis on the left side on 08/23/[address] Blunt, here for evaluation of possible recurrent left pneumothorax. The patient reports that around 6:30 PM today, approximately 6 hours prior to coming to the emergency department, he leaned forward and felt a pop in the left side of his chest. He states that since that time it has progressively been harder for him to breathe. He is having sharp pains on the left side of his chest which he rates as 6 out of 10, worse with movement and inspiration. He denies history of cardiac disease. He quit smoking cigarettes in November of this year. PFSH Past Medical History Autoimmune Disease: No Cancer: No Cardiovascular Problems: No Endocrine: No Genitourinary: No Immune Disorder: No Musculoskeletal: Yes ("SCIATICA") Neurologic: No Psychiatric: No Reproductive: No Respiratory: Yes (PULMONARY FIBROSIS) Migraines: Yes ("I'VE SUFFERED FROM MIGRAINES SINCE I WAS ABOUT 4 YEARS OLD") ?: Not Past Surgical History Abdominal Surgery: No Cardiac Surgery: No Ear Surgery: No Endocrine Surgery: No Eye Surgery: No Genitourinary Surgery: No Gynecologic Surgery: No Oral Surgery: No Thoracic Surgery: No Social History Alcohol Use: Yes (OCC) Tobacco Use: No Substance Use: Yes (alcohol daily, cocaine twice weekly) Allergies-Medications (Allergen,Severity, Reaction): Coded Allergies: No Known Allergies (Unverified , 09/12/17) Reported Meds & Prescriptions Reported Meds & Active Scripts Active Ventolin Hfa 18 GM Inh (Albuterol Sulfate) 90 Mcg/Act Aer 2 Puff INH Q4-6H PRN Oxycodone-Acetaminophen 5-325 mg Tab 1 Tab PO Q6H PRN Metoprolol Tartrate 25 Mg Tab 25 Mg PO Q12HR Spiriva Handihaler (Tiotropium Inh) 18 Mcg Cap 18 Mcg INH DAILY 1 capsule = 18 mcg Review of Systems Except as stated in HPI: all other systems reviewed are Neg Physical Exam Narrative GENERAL: Well-developed, well-nourished, comfortable, no apparent distress. SKIN: Focused skin assessment warm/dry. HEAD: Atraumatic. Normocephalic. EYES: Pupils equal and round. No scleral icterus. No injection or drainage. ENT: Mucous membranes pink and moist. NECK: Trachea midline. No JVD. CARDIOVASCULAR: Regular rate and rhythm. RESPIRATORY: No accessory muscle use. Clear to auscultation. Slightly distant breath sounds on the left. Normal breath sounds on the right. GASTROINTESTINAL: Abdomen soft, non-tender, nondistended. MUSCULOSKELETAL: No obvious deformities. No clubbing. No cyanosis. No edema. Surgical wound to left anterior left posterior chest wall that are healing well without warmth or erythema or purulent drainage. NEUROLOGICAL: Awake and alert. No obvious cranial nerve deficits. Motor grossly within normal limits. Normal speech. PSYCHIATRIC: Appropriate mood and affect; insight and judgment normal. Data Data Last Documented VS Vital Signs Date Time Temp Pulse Resp B/P (MAP) Pulse Ox O2 Delivery O2 Flow Rate FiO2 09/12/17 01:04 21 98 Room Air 09/12/17 00:49 98.0 117 164/103 (123) Orders Orders Electrocardiogram (09/12/17 00:55) Basic Metabolic Panel (Bmp) (09/12/17 00:55) Ckmb (Isoenzyme) Profile (09/12/17 00:55) Complete Blood Count With Diff (09/12/17 00:55) Prothrombin Time / Inr (Pt) (09/12/17 00:55) Act Partial Throm Time (Ptt) (09/12/17 00:55) Troponin I (09/12/17 00:55) Chest, Single Ap (09/12/17 00:55) Ecg Monitoring (09/12/17 00:55) Iv Access Insert/Monitor (09/12/17 00:55) Oximetry (09/12/17 00:55) Sodium Chloride 0.9% Flush (Ns Flush) (09/12/17 01:00) Morphine Inj (Morphine Inj) (09/12/17 01:00) CKMB (09/12/17 01:20) CKMB% (09/12/17 01:20) Ct Thorax/ Chest Wo Iv Contras (09/12/17 ) Lidocaine 1% Inj (50 Ml) (Xylocaine 1% I (09/12/17 03:30) Chest, Single Ap (09/12/17 ) Labs Laboratory Tests Test 09/12/17 01:20 White Blood Count 6.4 TH/MM3 Red Blood Count 4.33 MIL/MM3 Hemoglobin 12.0 GM/DL Hematocrit 36.9 % Mean Corpuscular Volume 85.1 FL Mean Corpuscular Hemoglobin 27.6 PG Mean Corpuscular Hemoglobin Concent 32.4 % Red Cell Distribution Width 15.3 % Platelet Count 271 TH/MM3 Mean Platelet Volume 7.9 FL Neutrophils (%) (Auto) 63.5 % Lymphocytes (%) (Auto) 27.0 % Monocytes (%) (Auto) 5.0 % Eosinophils (%) (Auto) 3.4 % Basophils (%) (Auto) 1.1 % Neutrophils # (Auto) 4.0 TH/MM3 Lymphocytes # (Auto) 1.7 TH/MM3 Monocytes # (Auto) 0.3 TH/MM3 Eosinophils # (Auto) 0.2 TH/MM3 Basophils # (Auto) 0.1 TH/MM3 CBC Comment DIFF FINAL Differential Comment Prothrombin Time 10.9 SEC Prothromb Time International Ratio 1.0 RATIO Activated Partial Thromboplast Time 28.5 SEC Blood Urea Nitrogen 7 MG/DL Creatinine 0.82 MG/DL Random Glucose 113 MG/DL Calcium Level 8.8 MG/DL Sodium Level 141 MEQ/L Potassium Level 3.4 MEQ/L Chloride Level 107 MEQ/L Carbon Dioxide Level 27.0 MEQ/L Anion Gap 7 MEQ/L Estimat Glomerular Filtration Rate 121 ML/MIN Total Creatine Kinase 325 U/L Creatine Kinase MB 2.2 NG/ML Creatine Kinase MB % 0.7 % Troponin I LESS THAN 0.02 NG/ML MDM Medical Decision Making Medical Screen Exam Complete: Yes Emergency Medical Condition: Yes Differential Diagnosis Pneumothorax, musculoskeletal strain, ACS Narrative Course Vital signs reviewed. Basic labs reviewed. Chest x-ray suspicious for pneumothorax and CT is recommended. CT thorax: CONCLUSION: 1. Prominent pneumothorax in the left. 2. Chronic interstitial densities. 3. 8mm nodule right upper lobe. Followup CT chest in 6 months recommended for stability Case discussed with the patient's cardiothoracic surgeon Dr. Blunt who recommends that I attempt to place a pigtail chest tube. Left pigtail chest tube placed by me. Case discussed with hospitalist Dr. Shearer who will admit the patient to her service. Procedures Procedure Narrative Left thoracostomy: Informed consent obtained. Site prepped with ChloraPrep and sterilely draped. 2 cc of 1% lidocaine was used for local anesthesia. Small carlos incision was made with an 11 blade at the fourth intercostal space anterior axillary line on the left. 10 Green[place]ic pigtail catheter was inserted over the fourth rib. Pleur- evac attached to the chest tube and chest tube was secured to the patient's chest wall using adhesive. Tolerated well. No complications. Postprocedural x -ray ordered. Diagnosis Primary Impression: Recurrent spontaneous pneumothorax Admitting Information Admitting Physician Requests: Admit Uvaldo Hyde MD Sep 12, 2017 00:58
[2017-09-12] MEDS ORDERED: SODIUM CHLORIDE 0.9% FLUSH 10 ML FLUSH IVF PRN (01:00)
[2017-09-12] MEDS ORDERED: MORPHINE SULFATE 4 MG/ML INJ IV PUSH ONE (01:00)
[2017-09-12 01:37] LABS: BASOPHIL # 0.1 TH/MM3 (0-0.2); BASOPHIL % 1.1 % (0.0-2.0); EOSINOPHIL # 0.2 TH/MM3 (0-0.4); EOSINOPHIL % 3.4 % (0.0-4.0); HEMATOCRIT 36.9 % (39.0-51.0); LYMPHOCYTE # 1.7 TH/MM3 (1.0-4.8); MEAN CELL VOLUME 85.1 FL (80.0-100.0); MEAN CORPUSCULAR HEMOGLOBIN 27.6 PG (27.0-34.0); MEAN CORPUSCULAR HGB CONC 32.4 % (32.0-36.0); MEAN PLATELET VOLUME 7.9 FL (7.0-11.0); MONOCYTE # 0.3 TH/MM3 (0-0.9); NEUT % 63.5 % (16.0-70.0); PLATELET COUNT 271 TH/MM3 (150-450); RED BLOOD COUNT 4.33 MIL/MM3 (4.50-5.90); RED CELL DISTRIBUTION WIDTH 15.3 % (11.6-17.2); WHITE BLOOD COUNT 6.4 TH/MM3 (4.0-11.0)
[2017-09-12 01:48] LABS: PROTHROMBIN TIME - PATIENT 10.9 SEC (9.8-11.6)
[2017-09-12 01:54] LABS: BLOOD UREA NITROGEN 7 MG/DL (7-18); CALCIUM 8.8 MG/DL (8.5-10.1); CHLORIDE 107 MEQ/L (98-107); CREATININE 0.82 MG/DL (0.60-1.30); GLOMERULAR FILTRATION RATE 121 ML/MIN (>89); GLUCOSE,RANDOM 113 MG/DL (74-106); SODIUM (NA) 141 MEQ/L (136-145)
[2017-09-12 01:57] LABS: TROPONIN I LESS THAN 0.02 NG/ML (0.02-0.05)
--- NOTE | 2017-09-12 02:07 | RADRPT ---
EXAM DATE/TIME: 09/12/2017 01:00 [facility] COMPARISON: No previous studies available for comparison. INDICATIONS : Left sided chest pain. MEDICAL HISTORY : Pulmonary fibrosis SURGICAL HISTORY : None. ENCOUNTER: Initial ACUITY: 1 day PAIN SCORE: 6/10 LOCATION: Left chest FINDINGS: A single view of the chest demonstrates coarse interstitial densities. Lucency in the lower left and medial hemithorax. Heart normal in size.. Osseous structures are intact. CONCLUSION: 1. Interstitial lung disease. 2. Lucency in the left lower and medial left hemithorax suggesting possible pneumothorax. CT chest re commended. Kenneth Elizabeth MD on September 12, 2017 at 2:03 Board Certified Radiologist. This report was verified electronically.
--- NOTE | 2017-09-12 03:05 | RADRPT ---
EXAM DATE/TIME: 09/12/2017 02:15 [facility] COMPARISON: No previous studies available for comparison. INDICATIONS : Respiratory distress. RADIATION DOSE: 5.27 CTDIvol (mGy) MEDICAL HISTORY : Pulmonary fibrosis SURGICAL HISTORY : None. ENCOUNTER: Initial ACUITY: 1 day PAIN SCALE: 3/10 LOCATION: chest TECHNIQUE: Volumetric scanning of the chest was performed. Using automated exposure control and adjustment of t he mA and/or kV according to patient size, radiation dose was kept as low as reasonably achievable to obtain optimal diagnostic quality images. DICOM format image data is available electronically for r eview and comparison. Follow-up recommendations for detected pulmonary nodules are based at a minimum on nodule size and pa tient risk factors according to Fleischner Society Guidelines. FINDINGS: LUNGS: There is no consolidation or pneumothorax. Interstitial densities in the lower lobes. Prominent pneum othorax the left. 8 mm nodule right lung. PLEURAE: There is no pleural thickening or pleural effusion. MEDIASTINUM: The heart and great vessels demonstrate no acute abnormality. There is no mediastinal or hilar lymph adenopathy. AXILLAE: Within normal limits. No lymphadenopathy. MUSCULOSKELETAL: Within normal limits for patient age. MISCELLANEOUS: The visualized upper abdominal organs demonstrate no acute abnormality. CONCLUSION: 1. Prominent pneumothorax in the left. 2. Chronic interstitial densities. 3. 8mm nodule right upper lobe. Followup CT chest in 6 months recommended for stability Kenneth Elizabeth MD on September 12, 2017 at 3:02 Board Certified Radiologist. This report was verified electronically.
[2017-09-12] MEDS ORDERED: LIDOCAINE HCL 1% 50 ML VIAL INFIL ONE (03:30)
[2017-09-12] MEDS ORDERED: MAGNESIUM HYDROXIDE SUSP 30 ML CUP PO PRN (04:30)
[2017-09-12] MEDS ORDERED: SENNOSIDES 8.6 MG TAB PO PRN (04:30)
[2017-09-12] MEDS ORDERED: RESP: ALBUTEROL 2.5 MG/IPRATROPIUM 0.5 MG NEB (PRN) NEB (04:30)
[2017-09-12] MEDS ORDERED: ACETAMINOPHEN/HYDROcodone 325 MG/5 MG TAB PO PRN ×2 (04:30→12:30)
[2017-09-12] MEDS ORDERED: LACTULOSE SYRUP 20 GM/30 ML CUP PO PRN (04:30)
[2017-09-12] MEDS ORDERED: ACETAMINOPHEN 325 MG TAB PO PRN (04:30)
[2017-09-12] MEDS ORDERED: ONDANSETRON HCL 4 MG/2 ML VIAL IVP PRN (04:30)
[2017-09-12] MEDS ORDERED: SODIUM CHLORIDE 0.9% FLUSH 10 ML FLUSH IV FLUSH PRN (04:30)
[2017-09-12] MEDS ORDERED: BISACODYL 10 MG SUPP RECTAL PRN (04:30)
--- NOTE | 2017-09-12 04:50 | HHI.HP ---
[facility] No Primary Care Physician Admission Diagnosis recurrent spontaneous pneumothorax Diagnoses: (1) Spontaneous pneumothorax Diagnosis: Principal (2) Hypokalemia Diagnosis: Principal (3) Rhabdomyolysis Diagnosis: Principal (4) HTN (hypertension) Diagnosis: Principal Travel History International Travel<30 Days: No Contact w/Intl Traveler <30 Da: No Traveled to Known Affected Are: No History of Present Illness This is a 47-year-old male with a PMH of Pulmonary Fibrosis, Migraine and h/o Spontaneous Pneumothorax who presented to ER w/ complaints of acute onset of left chest wall pain similar to previous episodes of Pneumothorax. States he was leaned forward and heard a "pop", had immediate complaints of left-sided chest wall pain and SOB. Denies injury or trauma. Recent admit 08/19-08/26/17 for similar presentation, found to have Spontaneous Ptx, s/p Left VATS, Bleb Resection and Pleurodesis by Dr. Blunt on 08/23/17. States he quit smoking earlier this year. On arrival, BP 164/103, HR 117, O2 sat 98% on RA, Afebrile. CBC unremarkable. Chemistry essentially unremarkable. CPK 325. INR 1.0. CXR with interstitial lung disease, left lower medial left hemithorax lucency, possible pneumo. CT Chest with prominent pneumothorax on the left. Dr. Blunt consulted by ER physician, recommended chest tube, S/p Chest Tube placement in ER. Review of Systems Except as stated in HPI: all other systems reviewed are Neg ROS: 14 point review of systems otherwise negative. Past Family Social History Past Medical History PMH: Pulmonary Fibrosis, Migraine and h/o Spontaneous Pneumothorax Past Surgical History PAST SURGICAL HISTORY: VATS, Pleurodesis 08/23/17. Allergies: Coded Allergies: No Known Allergies (Unverified , 09/12/17) Family History PAST FAMILY HISTORY: Reviewed. No h/o DM or CAD Social History PAST SOCIAL HISTORY: History of alcohol. Quit tobacco, November 2016. H/o Cocaine. Physical Exam Vital Signs Vital Signs Date Time Temp Pulse Resp B/P (MAP) Pulse Ox O2 Delivery O2 Flow Rate FiO2 09/12/17 01:04 21 98 Room Air 09/12/17 00:49 98.0 117 16 164/103 (123) Physical Exam PE: GENERAL: Very pleasant middle-aged white male in no acute distress. HEENT: PERRLA, EOMI. No scleral icterus or conjunctival pallor. No lid lag or facial droop. CARDIOVASCULAR: Regular rate and rhythm. No obvious murmurs to auscultation. No chest tenderness to palpation. Left chest tube in place. RESPIRATORY: No obvious rhonchi or wheezing. Clear to auscultation. Breath sounds equal bilaterally. GASTROINTESTINAL: Abdomen soft, non-tender, nondistended. BS normal. MUSCULOSKELETAL: Extremities without clubbing, cyanosis, or edema. No obvious deformities. NEUROLOGICAL: Awake, alert and oriented x4. No focal neurologic deficits. Moving both upper and lower extremities spontaneously. Laboratory Laboratory Tests Test 09/12/17 01:20 White Blood Count 6.4 Red Blood Count 4.33 Hemoglobin 12.0 Hematocrit 36.9 Mean Corpuscular Volume 85.1 Mean Corpuscular Hemoglobin 27.6 Mean Corpuscular Hemoglobin Concent 32.4 Red Cell Distribution Width 15.3 Platelet Count 271 Mean Platelet Volume 7.9 Neutrophils (%) (Auto) 63.5 Lymphocytes (%) (Auto) 27.0 Monocytes (%) (Auto) 5.0 Eosinophils (%) (Auto) 3.4 Basophils (%) (Auto) 1.1 Neutrophils # (Auto) 4.0 Lymphocytes # (Auto) 1.7 Monocytes # (Auto) 0.3 Eosinophils # (Auto) 0.2 Basophils # (Auto) 0.1 CBC Comment DIFF FINAL Differential Comment Prothrombin Time 10.9 Prothromb Time International Ratio 1.0 Activated Partial Thromboplast Time 28.5 Blood Urea Nitrogen 7 Creatinine 0.82 Random Glucose 113 Calcium Level 8.8 Sodium Level 141 Potassium Level 3.4 Chloride Level 107 Carbon Dioxide Level 27.0 Anion Gap 7 Estimat Glomerular Filtration Rate 121 Total Creatine Kinase 325 Creatine Kinase MB 2.2 Creatine Kinase MB % 0.7 Troponin I LESS THAN 0.02 Result Diagram: 09/12/1711909/12/17119 Caprini VTE Risk Assessment Caprini VTE Risk Assessment: No/Low Risk (score <= 1) Caprini Risk Assessment Model Point Value = 1 Point Value = 2 Point Value = 3 Point Value = 5 Age 41-60 Minor surgery BMI > 25 kg/m2 Swollen legs Varicose veins or History of unexplained or recurrent spontaneous Oral contraceptives or hormone replacement Sepsis (< 1 month) Serious lung disease, including pneumonia (< 1 month) Abnormal pulmonary function Acute myocardial infarction Congestive heart failure (< 1 month) History of inflammatory bowel disease Medical patient at bed rest Age 61-74 Arthroscopic surgery Major open surgery (> 45 min) Laparoscopic surgery (> 45 min) Malignancy Confined to bed (> 72 hours) Immobilizing plaster cast Central venous access Age >= 75 History of VTE Family history of VTE Factor V Leiden Prothrombin [id number] Lupus anticoagulant Anticardiolipin antibodies Elevated serum homocysteine Heparin-induced thrombocytopenia Other congenital or acquired thrombophilia Stroke (< 1 month) Elective arthroplasty Hip, pelvis, or leg fracture Acute spinal cord injury (< 1 month) Prophylaxis Regimen Total Risk Factor Score Risk Level Prophylaxis Regimen 0-1 Low Early ambulation 2 Moderate Order ONE of the following: *Sequential Compression Device (SCD) *Heparin 5000 units SQ BID 3-4 Higher Order ONE of the following medications: *Heparin 5000 units SQ TID *Enoxaparin/Lovenox 40 mg SQ daily (WT < 150 kg, CrCl > 30 mL/min) *Enoxaparin/Lovenox 30 mg SQ daily (WT < 150 kg, CrCl > 10-29 mL/min) *Enoxaparin/Lovenox 30 mg SQ BID (WT < 150 kg, CrCl > 30 mL/min) AND/OR *Sequential Compression Device (SCD) 5 or more Highest Order ONE of the following medications: *Heparin 5000 units SQ TID (Preferred with Epidurals) *Enoxaparin/Lovenox 40 mg SQ daily (WT < 150 kg, CrCl > 30 mL/min) *Enoxaparin/Lovenox 30 mg SQ daily (WT < 150 kg, CrCl > 10-29 mL/min) *Enoxaparin/Lovenox 30 mg SQ BID (WT < 150 kg, CrCl > 30 mL/min) AND *Sequential Compression Device (SCD) Assessment and Plan Problem List: (1) Spontaneous pneumothorax ICD Code: J93.83 - Other pneumothorax (2) Rhabdomyolysis ICD Code: M62.82 - Rhabdomyolysis (3) Hypokalemia ICD Code: E87.6 - Hypokalemia (4) HTN (hypertension) ICD Code: I10 - Essential (primary) hypertension Assessment and Plan A/P: 1. Spontaneous Pneumothorax: Recurrent, h/o Chest Tube x5, recent admit 08/19- 08/26/17 for same, s/p VATS/Bleb Resection/Pleurodesis by Dr. Blunt on 08/23/14. CXR w/ possible pneumothorax, CT Chest w/ large left-sided pneumo, images reviewed by me. Dr. Blunt consulted by ER physician, recommended CT placement , s/p Chest Tube in ER. Analgesics/antiemetics, DuoNeb, Symbicort, resume home Spiriva. 2. Rhabdomyolysis: Mild. CPK 325. Check repeat CPK for trend. 3. Hypokalemia: Mild. K+ 3.4. Will recheck and replace as needed. 4. HTN: BP 160's on arrival, likely compounded by chest pain/SOB from Pneumo. Monitor BP, antihypertensives as needed. 5. DVT Prophylaxis: SCD/Teds. 6. Social work for d/c planning as needed. 7. Case discussed w/ ER physician at length. Physician Certification 2 Midnight Certification Type: Admission for Inpatient Services Order for Inpatient Services The services are ordered in accordance with Medicare regulations or non- Medicare payer requirements, as applicable. In the case of services not specified as inpatient-only, they are appropriately provided as inpatient services in accordance with the 2-midnight benchmark. Estimated LOS (days): 2 days is the estimated time the patient will need to remain in the hospital, assuming treatment plan goals are met and no additional complications. Post-Hospital Plan: Not yet determined Kasia Shearer MD Sep 12, 2017 04:50
[2017-09-12 05:16] LABS: BILIRUBIN, URINE NEG (NEG); BLOOD, URINE NEG (NEG); GLUCOSE,URINE NEG (NEG); KETONE, URINE NEG (NEG); NITRITE,URINE NEG (NEG); PH, URINE 7.5 (5.0-8.5); URINE COLOR LIGHT-YELLOW (YELLW/STRAW); URINE LEUKOCYTE ESTERASE NEG (NEG)
[2017-09-12] MEDS: MORPHINE SULFATE 4 MG/ML INJ IV PUSH PRN ×2 (05:52→09:12)
--- NOTE | 2017-09-12 06:17 | RADRPT ---
EXAM DATE/TIME: 09/12/2017 04:06 [facility] COMPARISON: CHEST SINGLE AP, September 12, 2017, 1:00. INDICATIONS : Post left side chest tube insertion MEDICAL HISTORY : Pulmonary Fibrosis SURGICAL HISTORY : None. ENCOUNTER: Subsequent ACUITY: 1 day PAIN SCORE: 7/10 LOCATION: Bilateral chest FINDINGS: A single view of the chest demonstrates interstitial lung changes. Left basilar atelectasis. Left si ded chest tube placement. Decrease in left-sided pneumothorax still visualized in the left lung base. Slight mediastinal shift. Osseous structures are intact. Postsurgical changes left upper lobe. CONCLUSION: 1. Left-sided chest tube with decreasing left sided pneumothorax. Kenneth Elizabeth MD on September 12, 2017 at 6:14 Board Certified Radiologist. This report was verified electronically.
[2017-09-12] MEDS: SODIUM CHLORIDE 0.9% FLUSH 10 ML FLUSH IV FLUSH SCH ×2 (09:11→20:18)
[2017-09-12] MEDS: DOCUSATE SODIUM 50 MG/SENNA 8.6 MG TAB PO SCH ×2 (09:13→20:18)
[2017-09-12] MEDS: BUDESONIDE-FORMOTEROL 160/4.5 MCG INHALER INH SCH ×3 (10:59→20:20)
[2017-09-12] MEDS ORDERED: MORPHINE SULFATE 4 MG/ML INJ IV PUSH PRN (12:30)
--- NOTE | 2017-09-12 13:11 | EKG ---
Date Performed: 09/12/2017 Time Performed: 00:54:28 PTAGE: 47 years EKG: SINUS TACHYCARDIA NONSPECIFIC T-WAVE ABNORMALITY When compared to previous tracing, sinus r ate has increased. ABNORMAL RHYTHM ECG PREVIOUS TRACING : 08/19/2017 13.20.16 DOCTOR: Johan Hutton Interpretating Date/Time 09/12/2017 13:09:28
[2017-09-12] MEDS: ACETAMINOPHEN/HYDROcodone 325 MG/7.5 MG TAB PO PRN ×3 (13:26→21:41)
[2017-09-12] MEDS ORDERED: MORPHINE SULFATE 2 MG/ML INJ IV PUSH PRN (14:00)
--- NOTE | 2017-09-12 16:43 | PD.CAR.PN ---
CVT Progress Note Subjective/Hospital Course: 47-year-old male with a PMH of Pulmonary Fibrosis, Migraine and h/o Spontaneous Pneumothorax / blebs who presented to ER w/ complaints of acute onset of left chest wall pain similar to previous episodes of Pneumothorax. States he was leaned forward and heard a "pop", had immediate complaints of left -sided chest wall pain and SOB. Denies injury or trauma. Recent admit 08/19-08/26/17 for similar presentation, found to have Spontaneous Ptx, s/p Left VATS, Bleb Resection and Pleurodesis by Dr. Blunt on 08/23/17. States he quit smoking earlier this year. On arrival, BP 164/103, HR 117, O2 sat 98% on RA, Afebrile. CBC unremarkable. Chemistry essentially unremarkable. CPK 325. INR 1.0. CXR with interstitial lung disease, left lower medial left hemithorax lucency, possible pneumo. CT Chest with prominent pneumothorax on the left. Left pig tail cath inserted in ED #10 kh[place] 09/12 cxr shows improving left PTX will keep to suction today, re-eval for water seal in am add IS / OOB Objective: Vital Signs Date Time Temp Pulse Resp B/P (MAP) Pulse Ox O2 Delivery O2 Flow Rate FiO2 09/12/17 16:01 98.5 72 18 127/82 (97) 96 09/12/17 12:01 98.1 76 18 133/92 (106) 96 09/12/17 12:00 96 Nasal Cannula 2.00 09/12/17 10:36 77 09/12/17 08:15 97.5 73 18 148/104 (119) 98 09/12/17 08:00 98 Nasal Cannula 2.00 09/12/17 08:00 98 Nasal Cannula 2.00 09/12/17 07:00 97.8 80 18 156/110 (125) 97 09/12/17 01:04 21 98 Room Air 09/12/17 00:49 98.0 117 16 164/103 (123) Labs: Laboratory Tests Test 09/12/17 04:45 Urine Color LIGHT-YELLOW (YELLW/STRAW) Urine Turbidity CLEAR (CLEAR) Urine pH 7.5 (5.0-8.5) Urine Specific [place] 1.008 (1.002-1.035) Urine Protein NEG mg/dL (NEG-TRACE) Urine Glucose (UA) NEG mg/dL (NEG) Urine Ketones NEG mg/dL (NEG) Urine Occult Blood NEG (NEG) Urine Nitrite NEG (NEG) Urine Bilirubin NEG (NEG) Urine Urobilinogen LESS THAN 2.0 MG/DL (LESS Urine Leukocyte Esterase NEG (NEG) Urine RBC LESS THAN 1 /hpf (0-3) Microscopic Urinalysis Comment CULT NOT INDICATED Urine Opiates Screen NEG (NEG) Urine Barbiturates Screen NEG (NEG) Urine Amphetamines Screen NEG (NEG) Urine Benzodiazepines Screen NEG (NEG) Urine Cocaine Screen NEG (NEG) Urine Cannabinoids Screen NEG (NEG) Result Diagram: 09/12/1711909/12/17119 Telemetry: NSR (1) Recurrent spontaneous pneumothorax Plan: # [address] [place] pig tail cath in place, improving left PTX keep to suction today IS/ OOB (2) Left VATS exploration, bleb resection, pleuradesis Elizabeth Sood Sep 12, 2017 16:43
--- NOTE | 2017-09-12 16:43 | PD.CAR.PN ---
CVT Progress Note Subjective/Hospital Course: 47-year-old male with a PMH of Pulmonary Fibrosis, Migraine and h/o Spontaneous Pneumothorax / blebs who presented to ER w/ complaints of acute onset of left chest wall pain similar to previous episodes of Pneumothorax. States he was leaned forward and heard a "pop", had immediate complaints of left -sided chest wall pain and SOB. Denies injury or trauma. Recent admit 08/19-08/26/17 for similar presentation, found to have Spontaneous Ptx, s/p Left VATS, Bleb Resection and Pleurodesis by Dr. Blunt on 08/23/17. States he quit smoking earlier this year. On arrival, BP 164/103, HR 117, O2 sat 98% on RA, Afebrile. CBC unremarkable. Chemistry essentially unremarkable. CPK 325. INR 1.0. CXR with interstitial lung disease, left lower medial left hemithorax lucency, possible pneumo. CT Chest with prominent pneumothorax on the left. Left pig tail cath inserted in ED #10 [place] 09/12 cxr shows improving left PTX will keep to suction today, re-eval for water seal in am add IS / OOB Objective: Vital Signs Date Time Temp Pulse Resp B/P (MAP) Pulse Ox O2 Delivery O2 Flow Rate FiO2 09/12/17 16:01 98.5 72 18 127/82 (97) 96 09/12/17 12:01 98.1 76 18 133/92 (106) 96 09/12/17 12:00 96 Nasal Cannula 2.00 09/12/17 10:36 77 09/12/17 08:15 97.5 73 18 148/104 (119) 98 09/12/17 08:00 98 Nasal Cannula 2.00 09/12/17 08:00 98 Nasal Cannula 2.00 09/12/17 07:00 97.8 80 18 156/110 (125) 97 09/12/17 01:04 21 98 Room Air 09/12/17 00:49 98.0 117 16 164/103 (123) Labs: Laboratory Tests Test 09/12/17 04:45 Urine Color LIGHT-YELLOW (YELLW/STRAW) Urine Turbidity CLEAR (CLEAR) Urine pH 7.5 (5.0-8.5) Urine Specific [place] 1.008 (1.002-1.035) Urine Protein NEG mg/dL (NEG-TRACE) Urine Glucose (UA) NEG mg/dL (NEG) Urine Ketones NEG mg/dL (NEG) Urine Occult Blood NEG (NEG) Urine Nitrite NEG (NEG) Urine Bilirubin NEG (NEG) Urine Urobilinogen LESS THAN 2.0 MG/DL (LESS Urine Leukocyte Esterase NEG (NEG) Urine RBC LESS THAN 1 /hpf (0-3) Microscopic Urinalysis Comment CULT NOT INDICATED Urine Opiates Screen NEG (NEG) Urine Barbiturates Screen NEG (NEG) Urine Amphetamines Screen NEG (NEG) Urine Benzodiazepines Screen NEG (NEG) Urine Cocaine Screen NEG (NEG) Urine Cannabinoids Screen NEG (NEG) Result Diagram: 09/12/1711909/12/17119 Telemetry: NSR (1) Recurrent spontaneous pneumothorax Plan: # 10 [place] pig tail cath in place, improving left PTX keep to suction today IS/ OOB (2) Left VATS exploration, bleb resection, pleuradesis Elizabeth Sood Sep 12, 2017 16:43
[2017-09-13] VITALS (16 sets, daily range): BP systolic 117–145; BP diastolic 71–103; PULSE 63–88; RESP 16–20; TEMP 97.2–98.4; O2SAT 93–98
[2017-09-13] MEDS: ACETAMINOPHEN/HYDROcodone 325 MG/7.5 MG TAB PO PRN ×4 (01:37→21:37)
[2017-09-13] MEDS: LIDOCAINE HCL 5% PATCH T-DERMAL PRN ×2 (04:19→20:22)
[2017-09-13 07:24] LABS: AUTOMATED NEUTROPHIL # 3.2 TH/MM3 (1.8-7.7); BASOPHIL % 0.6 % (0.0-2.0); EOSINOPHIL # 0.4 TH/MM3 (0-0.4); EOSINOPHIL % 7.5 % (0.0-4.0); HEMATOCRIT 34.9 % (39.0-51.0); HEMOGLOBIN 11.4 GM/DL (13.0-17.0); LYMPHOCYTE # 1.3 TH/MM3 (1.0-4.8); MEAN CELL VOLUME 84.5 FL (80.0-100.0); MEAN CORPUSCULAR HEMOGLOBIN 27.7 PG (27.0-34.0); MEAN CORPUSCULAR HGB CONC 32.7 % (32.0-36.0); MEAN PLATELET VOLUME 7.9 FL (7.0-11.0); MONO % 6.6 % (0.0-8.0); MONOCYTE # 0.4 TH/MM3 (0-0.9); NEUT % 60.3 % (16.0-70.0); PLATELET COUNT 270 TH/MM3 (150-450); RED BLOOD COUNT 4.13 MIL/MM3 (4.50-5.90); RED CELL DISTRIBUTION WIDTH 15.6 % (11.6-17.2); WHITE BLOOD COUNT 5.3 TH/MM3 (4.0-11.0)
[2017-09-13 07:46] LABS: ALBUMIN 2.9 GM/DL (3.4-5.0); AST (GOT) 17 U/L (15-37); BICARBONATE 28.3 MEQ/L (21.0-32.0); BLOOD UREA NITROGEN 5 MG/DL (7-18); CALCIUM 8.9 MG/DL (8.5-10.1); CHLORIDE 104 MEQ/L (98-107); CREATININE 0.72 MG/DL (0.60-1.30); GLOMERULAR FILTRATION RATE 141 ML/MIN (>89); GLUCOSE,RANDOM 99 MG/DL (74-106); SODIUM (NA) 139 MEQ/L (136-145)
[2017-09-13 07:50] LABS: ALKALINE PHOSPHATASE 67 U/L (45-117); ALT (GPT) 18 U/L (12-78); TOTAL BILIRUBIN ADULT 0.4 MG/DL (0.2-1.0)
--- NOTE | 2017-09-13 07:52 | RADRPT ---
EXAM DATE/TIME: 09/13/2017 06:28 [facility] COMPARISON: CHEST SINGLE AP, September 12, 2017, 4:06. INDICATIONS : Short of breath, left side chest pain, evaluate left pneumothorax and chest tube MEDICAL HISTORY : pulmonary fibrosis, multiple recurrent spontaneous pneumothorax. SURGICAL HISTORY : multiple chest tubes ENCOUNTER: Subsequent ACUITY: 2 days PAIN SCORE: 8/10 LOCATION: Left chest FINDINGS: A single AP erect expiratory view of the chest was obtained and now demonstrates volume loss in the r ight hemithorax with increased hazy density. There is mediastinal shift to the right. A small bore le ft-sided chest tube remains in place. The left lateral pneumothorax component is increased in size an d measures up to 3.2 cm along the mid lateral chest wall. The basal component appears slightly increa sed as well. The heart size appears moderately enlarged. Patient is mildly rotated. CONCLUSION: 1. Mildly rotated exam with interval increase in the left pneumothorax as well as apparent volume los s in the right hemithorax and mediastinal shift to the right. 2. Heart size now appears enlarged. 3. Hazy opacity is noted in the right lung. Saleem Mejia MD on September 13, 2017 at 7:47 Board Certified Radiologist. This report was verified electronically.
[2017-09-13] MEDS: DOCUSATE SODIUM 50 MG/SENNA 8.6 MG TAB PO SCH ×2 (09:00→20:11)
[2017-09-13] MEDS: BUDESONIDE-FORMOTEROL 160/4.5 MCG INHALER INH SCH ×2 (09:40→21:42)
[2017-09-13] MEDS: SODIUM CHLORIDE 0.9% FLUSH 10 ML FLUSH IV FLUSH SCH ×2 (09:40→20:27)
[2017-09-13] MEDS: MORPHINE SULFATE 2 MG/ML INJ IV PUSH PRN ×2 (11:44→23:20)
--- NOTE | 2017-09-13 13:54 | HHI.PR ---
Subjective Remarks Patient feel frustrated of having recurrent pneumothorax Complain of chest pain were the tube is No fever or chills Objective Vitals Vital Signs Date Time Temp Pulse Resp B/P (MAP) Pulse Ox O2 Delivery O2 Flow Rate FiO2 09/13/17 13:03 76 09/13/17 12:25 97.2 81 20 145/103 (117) 93 09/13/17 09:58 Nasal Cannula 1.50 09/13/17 08:01 98.4 79 18 136/93 (107) 97 09/13/17 04:00 98.4 70 20 132/94 (107) 96 09/13/17 04:00 Nasal Cannula 2.00 09/13/17 00:00 98.0 63 20 117/71 (86) 97 09/13/17 00:00 Nasal Cannula 2.00 09/12/17 20:00 98.0 72 18 131/96 (108) 92 09/12/17 20:00 Nasal Cannula 2.00 09/12/17 20:00 68 09/12/17 16:01 98.5 72 18 127/82 (97) 96 I/O 09/12/17 09/12/17 09/12/17 09/13/17 09/13/17 09/13/17 07:00 15:00 23:00 07:00 15:00 23:00 Intake Total 600 ml 240 ml Output Total 900 ml 1225 ml Balance -300 ml -985 ml Intake Oral 600 ml 240 ml Output Urine Total 900 ml 1225 ml # Bowel Movements 0 0 Result Diagram: 09/13/17 0540 09/13/17 0540 Objective Remarks GENERAL: This is a well-nourished, well-developed patient, in no apparent distress. SKIN: No rashes, warm and dry HEAD: Atraumatic. Normocephalic. EYES: Pupils equal round and reactive. Extraocular motions intact. No scleral icterus. ENT: Nose without bleeding, or drainage, Airway patent. NECK: Trachea midline. Supple CARDIOVASCULAR: Regular rate and rhythm without murmurs, gallops, or rubs. RESPIRATORY: Diminished breath sounds more on the left base GASTROINTESTINAL: Abdomen soft, non-tender, nondistended. Positive bowel sounds MUSCULOSKELETAL: Extremities without clubbing, cyanosis, or edema. Pedal pulses appreciated NEUROLOGICAL: Awake and alert. Moves all extremity. Normal speech.no focal neurological deficit A/P Problem List: (1) Spontaneous pneumothorax ICD Code: J93.83 - Other pneumothorax (2) Rhabdomyolysis ICD Code: M62.82 - Rhabdomyolysis (3) Hypokalemia ICD Code: E87.6 - Hypokalemia (4) HTN (hypertension) ICD Code: I10 - Essential (primary) hypertension Assessment and Plan 1. Spontaneous Pneumothorax: Recurrent, h/o Chest Tube x5, recent admit 08/19- 08/26/17 for same, s/p VATS/Bleb Resection/Pleurodesis by Dr. Blunt on 08/23/14. CXR w/ possible pneumothorax, CT Chest w/ large left-sided pneumo, images reviewed by me. Dr. Blunt consulted by ER physician, recommended CT placement , s/p Chest Tube in ER. Analgesics/antiemetics, DuoNeb, Symbicort, resume home Spiriva. 2. Rhabdomyolysis: Mild. CPK 325. Check repeat CPK for trend. 3. Hypokalemia: Mild. K+ 3.4. Will recheck and replace as needed. 4. HTN: BP 160's on arrival, likely compounded by chest pain/SOB from Pneumo. Monitor BP, antihypertensives as needed. 5. DVT Prophylaxis: SCD/Teds 09/13: Today's x-ray showing increased pneumothorax, [facility] input appreciated, they were notified, patient was transferred to CVICU for close monitoring, continue current care, pain management Nichole Bonilla MD Sep 13, 2017 13:54
[2017-09-13] MEDS ORDERED: MIDAZOLAM HCL 2 MG/2 ML VIAL ONE ×2 (14:40)
--- NOTE | 2017-09-13 15:48 | PD.RAD ---
Post Procedure Progress Note Pre Procedure Diagnosis: (1) Recurrent spontaneous pneumothorax Post Procedure Diagnosis: (1) Recurrent spontaneous pneumothorax Procedure Date: Sep 13, 2017 Supervising Radiologist: Inder Becerra JR Proceduralist/Assist: Kassy Ashley RT(R)(), Lissette Perez RT(R) Anesthesia: Conscious Sedation Plan of Activity Patient to Unit: Critical Care Patient Condition: Good See PACS Report for procedural detail/treatment Drainage Procedure Procedure 1 Imaging Guidance: Fluoroscopy Side: Left Procedure Type: Chest Tube Non-Tunneled Procedure: Placement Albanian: 10 Drainage: Pleurovac Findings: Left subpulmonic chest tube placed. In good position. Jr. Hernan,Inder Hinds MD Sep 13, 2017 15:48
--- NOTE | 2017-09-13 16:00 | RADRPT ---
EXAM DATE/TIME: 09/13/2017 14:01 [facility] COMPARISON: No previous studies available for comparison. INDICATIONS : Patient with a recurrent left-sided pneumothorax despite left thoracostomy tube. Additional thoracost annie tube placement requested. MEDICAL HISTORY : Pulmonary Fibrosis Migraines H/O spontaneous pneumothorax SURGICAL HISTORY : VATS Pleurodesis ENCOUNTER: Initial ACUITY: 1 day PAIN SCORE: 6/10 LOCATION: Left chest FLUORO TIME: 1.3 minutes IMAGE SERIES: 2 SEDATION TIME: 30 minutes MEDICATION(S): 1.) 3.5 mg midazolam (Versed) IV 2.) 175 mcg fentanyl (Sublimaze) IV DEVICE(S): 1.) 10 Japanese non-locking catheter PROCEDURE : 1. Fluoroscopically guided chest tube placement. 2. Conscious sedation with continuous EKG and oximetry monitoring. The risks, benefits and alternatives to the procedure were explained and verbal and written consent w as obtained. The site was prepped in sterile fashion. Full sterile technique was used, including ca p, mask, sterile gloves and gown and a large sterile sheet. Hand hygiene and 2% chlorhexidine and/or betadine/alcohol prep was utilized per protocol for cutaneous antisepsis. The skin and subcutaneous tissues were infiltrated with local anesthetic solution. With fluoroscopic guidance the chest was punctured into the subpulmonic space via a midaxillary line approach and the prescribed catheter was placed in the lung base. Wall suction was applied. Post pro cedure images demonstrate satisfactory position of the tube. The catheter was sutured in place and a Percu-Stay was applied. Conscious sedation was performed with the prescribed dosages and duration as above in the presence of an independent trained radiology nurse to assist in the monitoring of the patient. EKG and oximetry remained stable throughout the procedure. The patient tolerated the procedure well and there were n o complications. The patient was sent to post anesthesia recovery in stable condition. CONCLUSION: Uncomplicated chest tube placement as above. Inder Becerra Jr., MD on September 13, 2017 at 15:57 Board Certified Radiologist. This report was verified electronically.
--- NOTE | 2017-09-13 17:10 | PD.CAR.PN ---
CVT Progress Note Subjective/Hospital Course: 47-year-old male with a PMH of Pulmonary Fibrosis, Migraine and h/o Spontaneous Pneumothorax / blebs who presented to ER w/ complaints of acute onset of left chest wall pain similar to previous episodes of Pneumothorax. States he was leaned forward and heard a "pop", had immediate complaints of left -sided chest wall pain and SOB. Denies injury or trauma. Recent admit 08/19-08/26/17 for similar presentation, found to have Spontaneous Ptx, s/p Left VATS, Bleb Resection and Pleurodesis by Dr. Blunt on 08/23/17. States he quit smoking earlier this year. On arrival, BP 164/103, HR 117, O2 sat 98% on RA, Afebrile. CBC unremarkable. Chemistry essentially unremarkable. CPK 325. INR 1.0. CXR with interstitial lung disease, left lower medial left hemithorax lucency, possible pneumo. CT Chest with prominent pneumothorax on the left. Left pig tail cath inserted in ED #10 [place] 09/12 cxr shows improving left PTX will keep to suction today, re-eval for water seal in am add IS / OOB 09/13 called by Nursing staff regarding results of am cxr results: . interval increase in the left pneumothorax as well as apparent volume loss in the right hemithorax and mediastinal shift to the right. 2. Heart size now appears enlarged. 3. Hazy opacity is noted in the right lung. stat consult placed to IR for second chest tube spoke with Dr Serna, also transfer to [facility]U for closer observation, pt remains stable on 1.5li, he does c/o of increased left sided chest pain since last pm "hurts to breathe " , no air leak in pleuravac, pig tail cath remains in place pt did recieve #10French Left subpulmonic chest tube this afternoon Objective: GENERAL: SKIN: Warm and dry. left upper chest tube in place, no sub q air HEAD: Normocephalic. EYES: No scleral icterus. No injection or drainage. NECK: Supple, trachea midline. No JVD or lymphadenopathy. CARDIOVASCULAR: Regular rate and rhythm without murmurs, gallops, or rubs. RESPIRATORY: Breath sounds equal bilaterally. No accessory muscle use. no air leak noted in chest tube GASTROINTESTINAL: Abdomen soft, non-tender, nondistended. MUSCULOSKELETAL: No cyanosis, or edema. BACK: Nontender without obvious deformity. No CVA tenderness. Vital Signs Date Time Temp Pulse Resp B/P (MAP) Pulse Ox O2 Delivery O2 Flow Rate FiO2 09/13/17 16:51 95 2.00 09/13/17 16:08 98.1 78 16 120/79 (93) 98 09/13/17 15:49 96 Nasal Cannula 1.00 09/13/17 13:03 76 09/13/17 12:25 97.2 81 20 145/103 (117) 93 09/13/17 09:58 Nasal Cannula 1.50 09/13/17 08:01 98.4 79 18 136/93 (107) 97 09/13/17 04:00 98.4 70 20 132/94 (107) 96 09/13/17 04:00 Nasal Cannula 2.00 09/13/17 00:00 98.0 63 20 117/71 (86) 97 09/13/17 00:00 Nasal Cannula 2.00 09/12/17 20:00 98.0 72 18 131/96 (108) 92 09/12/17 20:00 Nasal Cannula 2.00 09/12/17 20:00 68 Labs: Laboratory Tests Test 09/13/17 05:40 White Blood Count 5.3 TH/MM3 (4.0-11.0) Red Blood Count 4.13 MIL/MM3 (4.50-5.90) Hemoglobin 11.4 GM/DL (13.0-17.0) Hematocrit 34.9 % (39.0-51.0) Mean Corpuscular Volume 84.5 FL (80.0-100.0) Mean Corpuscular Hemoglobin 27.7 PG (27.0-34.0) Mean Corpuscular Hemoglobin Concent 32.7 % (32.0-36.0) Red Cell Distribution Width 15.6 % (11.6-17.2) Platelet Count 270 TH/MM3 (150-450) Mean Platelet Volume 7.9 FL (7.0-11.0) Neutrophils (%) (Auto) 60.3 % (16.0-70.0) Lymphocytes (%) (Auto) 25.0 % (9.0-44.0) Monocytes (%) (Auto) 6.6 % (0.0-8.0) Eosinophils (%) (Auto) 7.5 % (0.0-4.0) Basophils (%) (Auto) 0.6 % (0.0-2.0) Neutrophils # (Auto) 3.2 TH/MM3 (1.8-7.7) Lymphocytes # (Auto) 1.3 TH/MM3 (1.0-4.8) Monocytes # (Auto) 0.4 TH/MM3 (0-0.9) Eosinophils # (Auto) 0.4 TH/MM3 (0-0.4) Basophils # (Auto) 0.0 TH/MM3 (0-0.2) CBC Comment DIFF FINAL Differential Comment Blood Urea Nitrogen 5 MG/DL (7-18) Creatinine 0.72 MG/DL (0.60-1.30) Random Glucose 99 MG/DL (74-106) Total Protein 8.0 GM/DL (6.4-8.2) Albumin 2.9 GM/DL (3.4-5.0) Calcium Level 8.9 MG/DL (8.5-10.1) Alkaline Phosphatase 67 U/L (45-117) Aspartate Amino Transf (AST/SGOT) 17 U/L (15-37) Alanine Aminotransferase (ALT/SGPT) 18 U/L (12-78) Total Bilirubin 0.4 MG/DL (0.2-1.0) Sodium Level 139 MEQ/L (136-145) Potassium Level 3.8 MEQ/L (3.5-5.1) Chloride Level 104 MEQ/L (98-107) Carbon Dioxide Level 28.3 MEQ/L (21.0-32.0) Anion Gap 7 MEQ/L (5-15) Estimat Glomerular Filtration Rate 141 ML/MIN (>89) Total Creatine Kinase 211 U/L (39-308) Result Diagram: 09/13/1740 09/13/1740 (1) Recurrent spontaneous pneumothorax Plan: # 10 [place] pig tail cath in place, worsening chest xray this am second chest tube placed by IR keep to suction today IS/ OOB pain control (2) Left VATS exploration, bleb resection, pleuradesis Elizabeth Sood Sep 13, 2017 17:10
[2017-09-13] MEDS ORDERED: HYDROmorphone HCL PF 2 MG/ML VIAL IV PRN (18:45)
[2017-09-13] MEDS: HYDROmorphone HCL PF 0.5 MG/0.5 ML SYRINGE IV PUSH PRN (20:12)
[2017-09-13] MEDS ORDERED: TEMAZEPAM 15 MG CAP PO ONE (21:30)
[2017-09-14] VITALS (29 sets, daily range): BP systolic 113–134; BP diastolic 72–95; PULSE 69–102; RESP 16–18; TEMP 97.5–98.6; O2SAT 93–95
[2017-09-14] MEDS: ACETAMINOPHEN/HYDROcodone 325 MG/7.5 MG TAB PO PRN ×5 (04:30→21:33)
--- NOTE | 2017-09-14 05:17 | RADRPT ---
EXAM DATE/TIME: 09/14/2017 04:28 [facility] COMPARISON: CHEST SINGLE AP, September 13, 2017, 6:28. INDICATIONS : Short of breath. MEDICAL HISTORY : pulmonary fibrosis, multiple recurrent spontaneous pneumothorax. SURGICAL HISTORY : multiple chest tubes. ENCOUNTER: Subsequent ACUITY: 3 weeks PAIN SCORE: 0/10 LOCATION: Bilateral chest FINDINGS: A single view of the chest demonstrates 2 small caliber left-sided chest tubes. Lateral pneumothorax measuring 11 mm. Coarse interstitial densities with areas of increasing density in the lower lobes. V olume loss and shift of mediastinum to the right. Osseous structures are intact. CONCLUSION: 1. 2 chest tubes and decreasing pneumothorax laterally on the left. 2. Chronic interstitial changes and increasing density in the lower lobes could be atelectasis or act lurdes infiltrates. Kenneth Elizabeth MD on September 14, 2017 at 5:13 Board Certified Radiologist. This report was verified electronically.
[2017-09-14] MEDS: HYDROmorphone HCL PF 0.5 MG/0.5 ML SYRINGE IV PUSH PRN ×3 (06:38→19:46)
[2017-09-14] MEDS: DOCUSATE SODIUM 50 MG/SENNA 8.6 MG TAB PO SCH ×2 (08:42→19:46)
[2017-09-14] MEDS: BUDESONIDE-FORMOTEROL 160/4.5 MCG INHALER INH SCH ×2 (08:44→19:46)
[2017-09-14] MEDS: SODIUM CHLORIDE 0.9% FLUSH 10 ML FLUSH IV FLUSH SCH ×2 (08:44→19:47)
[2017-09-14] MEDS: POLYETHYLENE GLYCOL 17 GM PKG PO SCH (12:33)
--- NOTE | 2017-09-14 14:04 | PD.CAR.PN ---
CVT Progress Note Subjective/Hospital Course: 47-year-old male with a PMH of Pulmonary Fibrosis, Migraine and h/o Spontaneous Pneumothorax / blebs who presented to ER w/ complaints of acute onset of left chest wall pain similar to previous episodes of Pneumothorax. States he was leaned forward and heard a "pop", had immediate complaints of left -sided chest wall pain and SOB. Denies injury or trauma. Recent admit 08/19-08/26/17 for similar presentation, found to have Spontaneous Ptx, s/p Left VATS, Bleb Resection and Pleurodesis by Dr. Blunt on 08/23/17. States he quit smoking earlier this year. On arrival, BP 164/103, HR 117, O2 sat 98% on RA, Afebrile. CBC unremarkable. Chemistry essentially unremarkable. CPK 325. INR 1.0. CXR with interstitial lung disease, left lower medial left hemithorax lucency, possible pneumo. CT Chest with prominent pneumothorax on the left. Left pig tail cath inserted in ED #10 [place] 09/12 cxr shows improving left PTX will keep to suction today, re-eval for water seal in am add IS / OOB 09/13 called by Nursing staff regarding results of am cxr results: . interval increase in the left pneumothorax as well as apparent volume loss in the right hemithorax and mediastinal shift to the right. 2. Heart size now appears enlarged. 3. Hazy opacity is noted in the right lung. stat consult placed to IR for second chest tube spoke with Dr Serna, also transfer to [facility]U for closer observation, pt remains stable on 1.5li, he does c/o of increased left sided chest pain since last pm "hurts to breathe " , no air leak in pleuravac, pig tail cath remains in place pt did recieve #10French Left subpulmonic chest tube this afternoon 09/14 left lateral PTX improved 11mm left anterior chest tube now to water seal postero lateral chest tube + air leak, to 20cm suction consult pulm, now on nebs , pulm toileting, consult PT had short burst SVT, labs [pending Objective: GENERAL: SKIN: Warm and dry. dressing in place left anteroir chest wall to chest tube site, and left postero lateral chest wall HEAD: Normocephalic. EYES: No scleral icterus. No injection or drainage. NECK: Supple, trachea midline. No JVD or lymphadenopathy. CARDIOVASCULAR: Regular rate and rhythm without murmurs, gallops, or rubs. RESPIRATORY: Breath sounds diminished on left upper lobe chest tube x [address] . No accessory muscle use. GASTROINTESTINAL: Abdomen soft, non-tender, nondistended. MUSCULOSKELETAL: No cyanosis, or edema. BACK: Nontender without obvious deformity. No CVA tenderness. Vital Signs Date Time Temp Pulse Resp B/P (MAP) Pulse Ox O2 Delivery O2 Flow Rate FiO2 09/14/17 13:00 71 09/14/17 12:00 74 09/14/17 11:45 98.5 75 16 119/87 (98) 95 09/14/17 11:45 95 Nasal Cannula 1.50 09/14/17 11:00 75 09/14/17 10:00 82 09/14/17 09:00 90 09/14/17 08:00 80 09/14/17 07:45 93 Nasal Cannula 1.50 09/14/17 07:45 97.5 85 16 134/88 (103) 93 09/14/17 07:00 74 09/14/17 06:03 79 09/14/17 05:25 16 09/14/17 05:04 74 09/14/17 04:00 76 09/14/17 03:08 96 Nasal Cannula 1.50 09/14/17 03:08 82 09/14/17 03:00 98.6 76 18 123/93 (103) 95 09/14/17 02:02 85 09/14/17 01:00 81 09/14/17 00:04 89 09/13/17 23:36 18 09/13/17 23:00 87 09/13/17 23:00 96 Nasal Cannula 1.50 09/13/17 23:00 97.5 75 18 128/95 (106) 96 09/13/17 22:10 77 09/13/17 21:09 18 09/13/17 20:39 95 Nasal Cannula 1.00 09/13/17 20:00 84 09/13/17 19:00 94 Nasal Cannula 1.50 09/13/17 19:00 88 09/13/17 19:00 97.6 81 18 141/98 (112) 93 09/13/17 18:10 87 09/13/17 17:00 84 09/13/17 16:51 95 2.00 09/13/17 16:08 98.1 78 16 120/79 (93) 98 09/13/17 15:49 96 Nasal Cannula 1.00 09/13/17 15:00 88 Labs: Laboratory Tests Test 09/14/17 13:25 Result Diagram: 09/13/17 0540 09/13/17 0540 (1) Recurrent spontaneous pneumothorax Plan: # 10 [place] pig tail cath in place, second chest tube # 10french placed by IR left postero lateral chest wall left anterior chest tube to water seal left posterolateral chest tube to wall suction + air leak IS/ OOB pain control (2) Left VATS exploration, bleb resection, pleuradesis Elizabeth Sood Sep 14, 2017 14:04
[2017-09-14 14:46] LABS: BICARBONATE 22.9 MEQ/L (21.0-32.0); CALCIUM 9.2 MG/DL (8.5-10.1); CREATININE 0.68 MG/DL (0.60-1.30); MAGNESIUM 1.9 MG/DL (1.5-2.5); PHOSPHORUS 3.8 MG/DL (2.5-4.9)
[2017-09-14] MEDS ORDERED: MAGNESIUM SULFATE 1 GM PREMIX 100 ML IV ONE (16:00)
[2017-09-14] MEDS: RESP: ALBUTEROL 2.5 MG/IPRATROPIUM 0.5 MG NEB (SCH) NEB ×2 (16:28→21:03)
--- NOTE | 2017-09-14 18:41 | HHI.PR ---
Subjective Remarks Patient have multiple questions regarding his condition I explained to him the role of the CVS and pulmonology and my own He denied short of breath, he feels pain in the area of the chest tube site Objective Vitals Vital Signs Date Time Temp Pulse Resp B/P (MAP) Pulse Ox O2 Delivery O2 Flow Rate FiO2 09/14/17 18:00 95 09/14/17 17:00 90 09/14/17 16:28 95 Nasal Cannula 1.50 09/14/17 16:00 82 09/14/17 15:47 95 Room Air 1.50 09/14/17 15:47 98.3 69 16 117/73 (88) 95 09/14/17 15:00 73 09/14/17 14:00 73 09/14/17 13:00 71 09/14/17 12:00 74 09/14/17 11:45 98.5 75 16 119/87 (98) 95 09/14/17 11:45 95 Nasal Cannula 1.50 09/14/17 11:00 75 09/14/17 10:00 82 09/14/17 09:00 90 09/14/17 08:00 80 09/14/17 07:45 93 Nasal Cannula 1.50 09/14/17 07:45 97.5 85 16 134/88 (103) 93 09/14/17 07:00 74 09/14/17 06:03 79 09/14/17 05:25 16 09/14/17 05:04 74 09/14/17 04:00 76 09/14/17 03:08 96 Nasal Cannula 1.50 09/14/17 03:08 82 09/14/17 03:00 98.6 76 18 123/93 (103) 95 09/14/17 02:02 85 09/14/17 01:00 81 09/14/17 00:04 89 09/13/17 23:36 18 09/13/17 23:00 87 09/13/17 23:00 96 Nasal Cannula 1.50 09/13/17 23:00 97.5 75 18 128/95 (106) 96 09/13/17 22:10 77 09/13/17 21:09 18 09/13/17 20:39 95 Nasal Cannula 1.00 09/13/17 20:00 84 09/13/17 19:00 94 Nasal Cannula 1.50 09/13/17 19:00 88 09/13/17 19:00 97.6 81 18 141/98 (112) 93 I/O 09/13/17 09/13/17 09/13/17 09/14/17 09/14/17 09/14/17 07:00 15:00 23:00 07:00 15:00 23:00 Intake Total 240 ml 240 ml 240 ml 840 ml Output Total 1225 ml 386 ml 1270 ml 120 ml Balance -985 ml -146 ml -1030 ml 720 ml Intake Oral 240 ml 240 ml 240 ml 840 ml Output Urine Total 1225 ml 350 ml 1200 ml Chest Tube Drainage Total 36 ml 70 ml 120 ml # Voids 2 3 # Bowel Movements 0 Result Diagram: 09/13/17 0540 09/14/17 1325 Objective Remarks GENERAL: This is a well-nourished, well-developed patient, in no apparent distress. SKIN: No rashes, warm and dry HEAD: Atraumatic. Normocephalic. EYES: Pupils equal round and reactive. Extraocular motions intact. No scleral icterus. ENT: Nose without bleeding, or drainage, Airway patent. NECK: Trachea midline. Supple CARDIOVASCULAR: Regular rate and rhythm without murmurs, gallops, or rubs. RESPIRATORY: Diminished breath sounds more on the left base GASTROINTESTINAL: Abdomen soft, non-tender, nondistended. Positive bowel sounds MUSCULOSKELETAL: Extremities without clubbing, cyanosis, or edema. Pedal pulses appreciated NEUROLOGICAL: Awake and alert. Moves all extremity. Normal speech.no focal neurological deficit A/P Problem List: (1) Spontaneous pneumothorax ICD Code: J93.83 - Other pneumothorax (2) Rhabdomyolysis ICD Code: M62.82 - Rhabdomyolysis (3) Hypokalemia ICD Code: E87.6 - Hypokalemia (4) HTN (hypertension) ICD Code: I10 - Essential (primary) hypertension Assessment and Plan 1. Spontaneous Pneumothorax: Recurrent, h/o Chest Tube x5, recent admit 08/19- 08/26/17 for same, s/p VATS/Bleb Resection/Pleurodesis by Dr. Blunt on 08/23/14. CXR w/ possible pneumothorax, CT Chest w/ large left-sided pneumo, images reviewed by me. Dr. Blunt consulted by ER physician, recommended CT placement , s/p Chest Tube in ER. Analgesics/antiemetics, DuoNeb, Symbicort, resume home Spiriva. 2. Rhabdomyolysis: Mild. CPK 325. Check repeat CPK for trend. 3. Hypokalemia: Mild. K+ 3.4. Will recheck and replace as needed. 4. HTN: BP 160's on arrival, likely compounded by chest pain/SOB from Pneumo. Monitor BP, antihypertensives as needed. 5. DVT Prophylaxis: SCD/Teds 09/13: Today's x-ray showing increased pneumothorax, CVS input appreciated, they were notified, patient was transferred to CVICU for close monitoring, continue current care, pain management 09/14: Chest tube 21 to water seal on to suctioning still with air leak, pulmonary and CVS following, monitor chest x-ray, discussed with the patient extensively for 20 minutes, also discussed with the nurse Nichole Bonilla MD Sep 14, 2017 18:41
[2017-09-14] MEDS: MORPHINE SULFATE 2 MG/ML INJ IV PUSH PRN (23:03)
--- NOTE | 2017-09-14 23:20 | MB ---
cc: Prerna SANTOS M.D. DATE OF CONSULTATION 09/14/17 REASON FOR CONSULTATION COPD and pulmonary fibrosis. HISTORY OF PRESENT ILLNESS This is a 47-year-old man with a history of pulmonary fibrosis and chronic bronchitis, has had a history of recurrent left pneumothoraxes for which he was admitted on more than two occasions over the past 3 months. The patient was last here during the first week of August and had a recurrent large pneumothorax requiring a chest tube placement and subsequently underwent left wedge exploration with resection of a bleb and pleurodesis. He was discharged satisfactorily on 08/27. Prior to that the patient was seen at [facility] 6 weeks ago with a left pneumothorax which resolved after a chest tube placement and the chest tube was discontinued after the pneumothorax had resolved. The patient was home since 08/27/17 and had been doing well up until this admission on 09/12 when he came to the emergency room with severe chest tightness and left-sided chest wall pain and shortness of breath. He had had no trauma and denied any exertional activity. The patient was again found to have a spontaneous left pneumothorax and a chest tube was placed in the ER and subsequently he was admitted to the fourth floor and a second chest tube was placed by interventional radiology due to a persistent pneumothorax. The patient is now resting comfortably. He is less short of breath, still has some pain along the left chest wall. Denies any hemoptysis. He has no fevers or chills. PAST HISTORY Has included pulmonary fibrosis, bronchiectasis and COPD and history of recurrent spontaneous pneumothorax and a history of migraines. He had had a VATS pleurodesis on 08/23. ALLERGIES None listed. HABITS The patient smoked one-pack per day for over 25 years and quit early this year. A history of cocaine use and alcohol use in the past. FAMILY HISTORY Noncontributory REVIEW OF SYSTEMS The patient has pain along the left chest wall, shortness of breath, cough, wheezing. No leg swelling. No abdominal pains. He has some anxiety. PHYSICAL EXAMINATION GENERAL: This well-built middle-aged man who is alert in no distress. VITAL SIGNS: Blood pressure 140/70, pulse 112, respirations 22, temperature 98. HEENT: Head normocephalic. Pupils are reactive. Tongue moist. Throat was clear. Nasal mucosa injected. NECK: Supple. No bruits or lymphadenopathy or thyromegaly. CHEST: Equal movements. There are two chest tubes along the left chest wall with dressings. Breath sounds diminished over the left lung field. There are fine crackles at the lung bases. HEART: Sounds are regular S1-S2. No murmur. ABDOMEN: Abdomen is soft, scaphoid. No organomegaly or tenderness. EXTREMITIES: No lesions. No edema. Normal reflexes. There are no gross motor deficits. Cranial nerves grossly intact. RECTAL: Exam deferred. SKIN: No lesions. IMPRESSION 1. Recurrent left pneumothorax. 2. History of VATS thoracotomy and bleb resection left chest with pleurodesis. 3. Extensive pulmonary fibrosis and bronchiectasis. PLAN The patient will be placed on O2 at 2 liters nasal cannula. Chest tube has been placed to wall suction. Nebulized DuoNeb solution added q.i.d. p.r.n. Repeat chest x-ray to be done in the a.m. Incentive spirometry at the bedside every 3 hours and repeat CBC and electrolyte profile. The patient has been given pain meds including Percocet p.r.n. and if there is resolution of the pneumothorax the chest tube will be clamped and discontinued. Thank you Dr. Amanda for this consultation. Arnoldo Santos MD JDELVIS/BERNARD /7:08 PM /11:05 PM
[2017-09-15] VITALS (30 sets, daily range): BP systolic 114–131; BP diastolic 66–91; PULSE 66–102; RESP 18; TEMP 97–97.8; O2SAT 94–99
[2017-09-15] MEDS: HYDROmorphone HCL PF 0.5 MG/0.5 ML SYRINGE IV PUSH PRN ×5 (01:34→20:47)
[2017-09-15] MEDS: ACETAMINOPHEN/HYDROcodone 325 MG/7.5 MG TAB PO PRN ×5 (03:20→22:47)
--- NOTE | 2017-09-15 04:51 | RADRPT ---
EXAM DATE/TIME: 09/15/2017 04:18 [facility] COMPARISON: CHEST SINGLE AP, September 14, 2017, 4:28. INDICATIONS : Shortness of breath, possible pneumothorax. MEDICAL HISTORY : Pulmonary fibrosis SURGICAL HISTORY : None. ENCOUNTER: Subsequent ACUITY: 4 - 6 days PAIN SCORE: 0/10 LOCATION: Bilateral chest FINDINGS: A single view of the chest demonstrates coarse interstitial densities. Left-sided chest tubes again s een. Small lateral pneumothorax measuring 8 mm of pleural separation.. Osseous structures are intact . CONCLUSION: Small lateral pneumothorax slightly decreased in prominence. Kenneth Elizabeth MD on September 15, 2017 at 4:49 Board Certified Radiologist. This report was verified electronically.
[2017-09-15] MEDS: DOCUSATE SODIUM 50 MG/SENNA 8.6 MG TAB PO SCH ×2 (08:23→22:47)
[2017-09-15] MEDS: POLYETHYLENE GLYCOL 17 GM PKG PO SCH (08:24)
[2017-09-15] MEDS: SODIUM CHLORIDE 0.9% FLUSH 10 ML FLUSH IV FLUSH SCH ×2 (08:24→22:49)
[2017-09-15] MEDS: BUDESONIDE-FORMOTEROL 160/4.5 MCG INHALER INH SCH ×2 (08:24→22:49)
[2017-09-15] MEDS: RESP: ALBUTEROL 2.5 MG/IPRATROPIUM 0.5 MG NEB (SCH) NEB ×3 (08:37→20:12)
--- NOTE | 2017-09-15 10:23 | HHI.PR ---
Subjective Remarks C/O some SOB and chest pains. Overall better. Upper chest catheter is not draining. Objective Vital Signs Date Time Temp Pulse Resp B/P (MAP) Pulse Ox O2 Delivery O2 Flow Rate FiO2 09/15/17 08:39 95 21 09/15/17 08:10 95 Room Air 09/15/17 08:10 97.4 68 18 121/82 (95) 94 09/15/17 06:01 70 09/15/17 05:01 79 09/15/17 04:33 18 09/15/17 04:06 76 09/15/17 03:28 97.8 85 18 131/91 (104) 95 09/15/17 03:28 95 Room Air 09/15/17 03:00 87 09/15/17 02:19 87 09/15/17 02:19 18 09/15/17 01:01 79 09/15/17 00:06 76 09/14/17 23:17 18 09/14/17 23:16 94 Room Air 09/14/17 23:15 97.9 82 16 113/72 (86) 95 09/14/17 23:00 77 09/14/17 22:00 71 09/14/17 20:00 88 09/14/17 19:00 98.6 76 16 133/95 (108) 94 09/14/17 19:00 94 Room Air 09/14/17 19:00 102 09/14/17 18:00 95 09/14/17 17:00 90 09/14/17 16:28 95 Nasal Cannula 1.50 09/14/17 16:00 82 09/14/17 15:47 95 Room Air 1.50 09/14/17 15:47 98.3 69 16 117/73 (88) 95 09/14/17 15:00 73 09/14/17 14:00 73 09/14/17 13:00 71 09/14/17 12:00 74 09/14/17 11:45 98.5 75 16 119/87 (98) 95 09/14/17 11:45 95 Nasal Cannula 1.50 09/14/17 11:00 75 I/O 09/14/17 09/14/17 09/14/17 09/15/17 09/15/17 09/15/17 07:00 15:00 23:00 07:00 15:00 23:00 Intake Total 240 ml 940 ml 480 ml Output Total 1270 ml 120 ml 1370 ml Balance -1030 ml 820 ml -890 ml Intake Oral 240 ml 840 ml 480 ml IV Total 100 ml Output Urine Total 1200 ml 1300 ml Chest Tube Drainage Total 70 ml 120 ml 70 ml # Voids 2 3 Result Diagram: 09/13/17 0540 09/14/17 1325 Objective Remarks GENERAL: This well-built middle-aged man who is alert in no distress. HEENT: Head normocephalic. Pupils are reactive. Tongue moist. Throat was clear. Nasal mucosa injected. NECK: Supple. No bruits or lymphadenopathy or thyromegaly. CHEST: Equal movements. There are two chest tubes along the left chest wall with dressings. Breath sounds diminished over the left lung field. There are fine crackles at the lung bases. HEART: Sounds are regular S1-S2. No murmur. ABDOMEN: Abdomen is soft, scaphoid. No organomegaly or tenderness. EXTREMITIES: No lesions. No edema. Normal reflexes. There are no gross motor deficits. Cranial nerves grossly intact. RECTAL: Exam deferred. SKIN: No lesions. Assessment and Plan Assessment and Plan IMPRESSION 1. Recurrent left pneumothorax. 2. History of VATS thoracotomy and bleb resection left chest with pleurodesis. 3. Extensive pulmonary fibrosis and bronchiectasis. Plan : 1. Remove one chest tube. 2. Rpt Chest X ray in am 3. O2 PRN 2 L. 4. nebs qid , duoneb. 5.IS q3h. 6. CBC,BMP. Prerna Santos MD Sep 15, 2017 10:23
--- NOTE | 2017-09-15 18:08 | PD.CAR.PN ---
CVT Progress Note Subjective/Hospital Course: 47-year-old male with a PMH of Pulmonary Fibrosis, Migraine and h/o Spontaneous Pneumothorax / blebs who presented to ER w/ complaints of acute onset of left chest wall pain similar to previous episodes of Pneumothorax. States he was leaned forward and heard a "pop", had immediate complaints of left -sided chest wall pain and SOB. Denies injury or trauma. Recent admit 08/19-08/26/17 for similar presentation, found to have Spontaneous Ptx, s/p Left VATS, Bleb Resection and Pleurodesis by Dr. Blunt on 08/23/17. States he quit smoking earlier this year. On arrival, BP 164/103, HR 117, O2 sat 98% on RA, Afebrile. CBC unremarkable. Chemistry essentially unremarkable. CPK 325. INR 1.0. CXR with interstitial lung disease, left lower medial left hemithorax lucency, possible pneumo. CT Chest with prominent pneumothorax on the left. Left pig tail cath inserted in ED #10 hung[place] 09/12 cxr shows improving left PTX will keep to suction today, re-eval for water seal in am add IS / OOB 09/13 called by Nursing staff regarding results of am cxr results: . interval increase in the left pneumothorax as well as apparent volume loss in the right hemithorax and mediastinal shift to the right. 2. Heart size now appears enlarged. 3. Hazy opacity is noted in the right lung. stat consult placed to IR for second chest tube spoke with Dr Serna, also transfer to [facility] for closer observation, pt remains stable on 1.5li, he does c/o of increased left sided chest pain since last pm "hurts to breathe " , no air leak in pleuravac, pig tail cath remains in place pt did recieve #10French Left subpulmonic chest tube this afternoon 09/14 left lateral PTX improved 11mm left anterior chest tube now to water seal postero lateral chest tube + air leak, to 20cm suction consult pulm, now on nebs , pulm toileting, consult PT had short burst VT, labs [pending 09/15 cardiology consult pending for short run Vtach left anterior chest tube removed ,left lateral chest tube in place with + air leak continue pulm toileting OOB ambulate Objective: Vital Signs Date Time Temp Pulse Resp B/P (MAP) Pulse Ox O2 Delivery O2 Flow Rate FiO2 09/15/17 16:14 81 09/15/17 15:45 96 Room Air 09/15/17 15:45 97.5 78 18 114/80 (91) 96 09/15/17 15:00 85 09/15/17 14:34 87 09/15/17 13:11 78 09/15/17 12:04 77 09/15/17 11:06 97.3 80 18 125/85 (98) 96 09/15/17 11:06 96 Room Air 09/15/17 11:00 89 09/15/17 10:00 102 09/15/17 09:00 76 09/15/17 08:39 95 21 09/15/17 08:10 95 Room Air 09/15/17 08:10 97.4 68 18 121/82 (95) 94 09/15/17 08:00 66 09/15/17 07:00 79 09/15/17 06:01 70 09/15/17 05:01 79 09/15/17 04:33 18 09/15/17 04:06 76 09/15/17 03:28 97.8 85 18 131/91 (104) 95 09/15/17 03:28 95 Room Air 09/15/17 03:00 87 09/15/17 02:19 87 09/15/17 02:19 18 09/15/17 01:01 79 09/15/17 00:06 76 09/14/17 23:17 18 09/14/17 23:16 94 Room Air 09/14/17 23:15 97.9 82 16 113/72 (86) 95 09/14/17 23:00 77 09/14/17 22:00 71 09/14/17 20:00 88 09/14/17 19:00 98.6 76 16 133/95 (108) 94 09/14/17 19:00 94 Room Air 09/14/17 19:00 102 Result Diagram: 09/13/17 0540 09/14/17 1325 (1) Recurrent spontaneous pneumothorax Plan: # 10 [place] pig tail cath in place, removed second chest tube # 10french placed by IR left postero lateral chest wall left posterolateral chest tube to wall suction + air leak IS/ OOB pain control (2) Left VATS exploration, bleb resection, pleuradesis Elizabeth Sood Sep 15, 2017 18:08
--- NOTE | 2017-09-15 18:34 | HHI.PR ---
Subjective Remarks Still having pain in the side of the chest to No nausea or vomiting breathing is okay Objective Vitals Vital Signs Date Time Temp Pulse Resp B/P (MAP) Pulse Ox O2 Delivery O2 Flow Rate FiO2 09/15/17 18:14 79 09/15/17 17:00 74 09/15/17 16:14 81 09/15/17 15:45 96 Room Air 09/15/17 15:45 97.5 78 18 114/80 (91) 96 09/15/17 15:00 85 09/15/17 14:34 87 09/15/17 13:11 78 09/15/17 12:04 77 09/15/17 11:06 97.3 80 18 125/85 (98) 96 09/15/17 11:06 96 Room Air 09/15/17 11:00 89 09/15/17 10:00 102 09/15/17 09:00 76 09/15/17 08:39 95 21 09/15/17 08:10 95 Room Air 09/15/17 08:10 97.4 68 18 121/82 (95) 94 09/15/17 08:00 66 09/15/17 07:00 79 09/15/17 06:01 70 09/15/17 05:01 79 09/15/17 04:33 18 09/15/17 04:06 76 09/15/17 03:28 97.8 85 18 131/91 (104) 95 09/15/17 03:28 95 Room Air 09/15/17 03:00 87 09/15/17 02:19 87 09/15/17 02:19 18 09/15/17 01:01 79 09/15/17 00:06 76 09/14/17 23:17 18 09/14/17 23:16 94 Room Air 09/14/17 23:15 97.9 82 16 113/72 (86) 95 09/14/17 23:00 77 09/14/17 22:00 71 09/14/17 20:00 88 09/14/17 19:00 98.6 76 16 133/95 (108) 94 09/14/17 19:00 94 Room Air 09/14/17 19:00 102 I/O 09/14/17 09/14/17 09/14/17 09/15/17 09/15/17 09/15/17 07:00 15:00 23:00 07:00 15:00 23:00 Intake Total 240 ml 940 ml 480 ml 922 ml Output Total 1270 ml 120 ml 1370 ml 1190 ml Balance -1030 ml 820 ml -890 ml -268 ml Intake Oral 240 ml 840 ml 480 ml 922 ml IV Total 100 ml Output Urine Total 1200 ml 1300 ml 1150 ml Chest Tube Drainage Total 70 ml 120 ml 70 ml 40 ml # Voids 2 3 # Bowel Movements 0 Result Diagram: 09/13/17 0540 09/14/17 1325 Objective Remarks GENERAL: This is a well-nourished, well-developed patient, in no apparent distress. SKIN: No rashes, warm and dry HEAD: Atraumatic. Normocephalic. EYES: Pupils equal round and reactive. Extraocular motions intact. No scleral icterus. ENT: Nose without bleeding, or drainage, Airway patent. NECK: Trachea midline. Supple CARDIOVASCULAR: Regular rate and rhythm without murmurs, gallops, or rubs. RESPIRATORY: Diminished breath sounds more on the left base GASTROINTESTINAL: Abdomen soft, non-tender, nondistended. Positive bowel sounds MUSCULOSKELETAL: Extremities without clubbing, cyanosis, or edema. Pedal pulses appreciated NEUROLOGICAL: Awake and alert. Moves all extremity. Normal speech.no focal neurological deficit A/P Problem List: (1) Spontaneous pneumothorax ICD Code: J93.83 - Other pneumothorax (2) Rhabdomyolysis ICD Code: M62.82 - Rhabdomyolysis (3) Hypokalemia ICD Code: E87.6 - Hypokalemia (4) HTN (hypertension) ICD Code: I10 - Essential (primary) hypertension Assessment and Plan 1. Spontaneous Pneumothorax: Recurrent, h/o Chest Tube x5, recent admit 08/19- 08/26/17 for same, s/p VATS/Bleb Resection/Pleurodesis by Dr. Blunt on 08/23/14. CXR w/ possible pneumothorax, CT Chest w/ large left-sided pneumo, images reviewed by me. Dr. Blunt consulted by ER physician, recommended CT placement , s/p Chest Tube in ER. Analgesics/antiemetics, DuoNeb, Symbicort, resume home Spiriva. 2. Rhabdomyolysis: Mild. CPK 325. Check repeat CPK for trend. 3. Hypokalemia: Mild. K+ 3.4. Will recheck and replace as needed. 4. HTN: BP 160's on arrival, likely compounded by chest pain/SOB from Pneumo. Monitor BP, antihypertensives as needed. 5. DVT Prophylaxis: SCD/Teds 09/13: Today's x-ray showing increased pneumothorax, CVS input appreciated, they were notified, patient was transferred to CVICU for close monitoring, continue current care, pain management 09/14: Chest tube 21 to water seal on to suctioning still with air leak, pulmonary and CVS following, monitor chest x-ray, discussed with the patient extensively for 20 minutes, also discussed with the nurse 09/15, chest x-ray reviewed by me, continue following with CVS, daily chest x- ray, chest tube management per JACINDA, Nichole Bonilla MD Sep 15, 2017 18:34
[2017-09-16] VITALS (29 sets, daily range): BP systolic 108–129; BP diastolic 71–81; PULSE 74–118; RESP 16–20; TEMP 97.1–99.3; O2SAT 75–98
[2017-09-16] MEDS: HYDROmorphone HCL PF 0.5 MG/0.5 ML SYRINGE IV PUSH PRN ×4 (00:41→22:10)
[2017-09-16] MEDS: ACETAMINOPHEN/HYDROcodone 325 MG/7.5 MG TAB PO PRN ×5 (04:59→23:44)
[2017-09-16] MEDS: RESP: ALBUTEROL 2.5 MG/IPRATROPIUM 0.5 MG NEB (SCH) NEB ×4 (07:42→21:10)
[2017-09-16] MEDS: DOCUSATE SODIUM 50 MG/SENNA 8.6 MG TAB PO SCH ×2 (08:59→19:59)
[2017-09-16] MEDS: BUDESONIDE-FORMOTEROL 160/4.5 MCG INHALER INH SCH ×2 (08:59→19:59)
[2017-09-16] MEDS: POLYETHYLENE GLYCOL 17 GM PKG PO SCH (09:00)
--- NOTE | 2017-09-16 12:54 | HHI.PR ---
Subjective Remarks C/O some SOB and chest pains. CXR shows a Small Pneumo on left. Upper chest catheter is not draining.Has air leak Objective Vital Signs Date Time Temp Pulse Resp B/P (MAP) Pulse Ox O2 Delivery O2 Flow Rate FiO2 09/16/17 07:45 95 Nasal Cannula 2.00 09/16/17 07:45 75 09/16/17 07:45 97 Nasal Cannula 2.00 09/16/17 07:45 98.9 75 16 121/81 (94) 75 09/16/17 06:12 98.2 76 18 110/71 (84) 98 09/16/17 06:00 76 09/16/17 05:00 74 09/16/17 04:00 98 Room Air 09/16/17 04:00 88 09/16/17 03:00 83 09/16/17 02:00 74 09/16/17 01:00 82 09/16/17 00:19 97.1 85 18 124/80 (95) 97 09/16/17 00:18 97 Room Air 09/16/17 00:00 86 09/15/17 23:00 83 09/15/17 22:00 82 09/15/17 21:01 97 Room Air 09/15/17 21:00 79 09/15/17 20:12 99 21 09/15/17 20:00 97.0 71 18 116/66 (83) 97 09/15/17 20:00 71 09/15/17 19:00 88 09/15/17 18:14 79 09/15/17 17:00 74 09/15/17 16:14 81 09/15/17 15:45 96 Room Air 09/15/17 15:45 97.5 78 18 114/80 (91) 96 09/15/17 15:00 85 09/15/17 14:34 87 09/15/17 13:11 78 I/O 09/15/17 09/15/17 09/15/17 09/16/17 09/16/17 09/16/17 07:00 15:00 23:00 07:00 15:00 23:00 Intake Total 480 ml 922 ml 680 ml Output Total 1370 ml 1190 ml 500 ml 60 ml Balance -890 ml -268 ml 180 ml -60 ml Intake Oral 480 ml 922 ml 680 ml Output Urine Total 1300 ml 1150 ml 500 ml Chest Tube Drainage Total 70 ml 40 ml 60 ml # Bowel Movements 0 0 Result Diagram: 09/13/17 0540 09/14/17 1325 Objective Remarks GENERAL: This well-built middle-aged man who is alert in no distress. HEENT: Head normocephalic. Pupils are reactive. Tongue moist. Throat was clear. Nasal mucosa injected. NECK: Supple. No bruits or lymphadenopathy or thyromegaly. CHEST: Equal movements. Tender left chest wall Breath sounds diminished over the left lung field. There are fine crackles at the lung bases. HEART: Sounds are regular S1-S2. No murmur. ABDOMEN: Abdomen is soft, scaphoid. No organomegaly or tenderness. EXTREMITIES: No lesions. No edema. Normal reflexes. There are no gross motor deficits. RECTAL: Exam deferred. SKIN: No lesions. Assessment and Plan Assessment and Plan IMPRESSION 1. Recurrent left pneumothorax. 2. History of VATS thoracotomy and bleb resection left chest with pleurodesis. 3. Extensive pulmonary fibrosis and bronchiectasis. Plan : 1. Chest Tube to water seal. 2. Chest X ray in am 3.O2 PRN 2 L. 4. nebs qid , duoneb. 5.IS q3h. 6. Labs in am Prerna Santos MD Sep 16, 2017 12:54
--- NOTE | 2017-09-16 13:04 | RADRPT ---
EXAM DATE/TIME: 09/16/2017 12:18 [facility] COMPARISON: CHEST SINGLE AP, September 15, 2017, 4:18. INDICATIONS : Pneumothorax. Patient has some pain at site of chest tube. Left chest tube placed to water seal. MEDICAL HISTORY : Pulmonary fibrosis, multiple spontaneous pneumothorax SURGICAL HISTORY : Chest tube, left. ENCOUNTER: Subsequent ACUITY: 1 week PAIN SCORE: 3/10 LOCATION: Bilateral chest FINDINGS: A single portable frontal view the chest shows development of a small subpulmonic pneumothorax on the left. Bilateral interstitial prominence remains. No effusions. Heart is normal in size. CONCLUSION: Development of small subpulmonic pneumothorax on the left with the left chest tube on water seal. Inder Becerra Jr., MD on September 16, 2017 at 12:58 Board Certified Radiologist. This report was verified electronically.
[2017-09-16] MEDS: SODIUM CHLORIDE 0.9% FLUSH 10 ML FLUSH IV FLUSH SCH ×2 (13:46→19:58)
--- NOTE | 2017-09-16 16:05 | HHI.PR ---
Subjective Remarks Resting on the chair don't seem to be in severe pain however he is taking narcotic No acute issue overnight, patient afebrile Objective Vitals Vital Signs Date Time Temp Pulse Resp B/P (MAP) Pulse Ox O2 Delivery O2 Flow Rate FiO2 09/16/17 12:15 99.3 105 16 111/72 (85) 93 09/16/17 12:15 97 Nasal Cannula 2.00 09/16/17 12:15 105 09/16/17 07:45 95 Nasal Cannula 2.00 09/16/17 07:45 75 09/16/17 07:45 97 Nasal Cannula 2.00 09/16/17 07:45 98.9 75 16 121/81 (94) 75 09/16/17 06:12 98.2 76 18 110/71 (84) 98 09/16/17 06:00 76 09/16/17 05:00 74 09/16/17 04:00 98 Room Air 09/16/17 04:00 88 09/16/17 03:00 83 09/16/17 02:00 74 09/16/17 01:00 82 09/16/17 00:19 97.1 85 18 124/80 (95) 97 09/16/17 00:18 97 Room Air 09/16/17 00:00 86 09/15/17 23:00 83 09/15/17 22:00 82 09/15/17 21:01 97 Room Air 09/15/17 21:00 79 09/15/17 20:12 99 21 09/15/17 20:00 97.0 71 18 116/66 (83) 97 09/15/17 20:00 71 09/15/17 19:00 88 09/15/17 18:14 79 09/15/17 17:00 74 09/15/17 16:14 81 I/O 09/15/17 09/15/17 09/15/17 09/16/17 09/16/17 09/16/17 07:00 15:00 23:00 07:00 15:00 23:00 Intake Total 480 ml 922 ml 680 ml Output Total 1370 ml 1190 ml 500 ml 60 ml Balance -890 ml -268 ml 180 ml -60 ml Intake Oral 480 ml 922 ml 680 ml Output Urine Total 1300 ml 1150 ml 500 ml Chest Tube Drainage Total 70 ml 40 ml 60 ml # Bowel Movements 0 0 Result Diagram: 09/13/17 0540 09/14/17 1325 Objective Remarks GENERAL: This is a well-nourished, well-developed patient, in no apparent distress. SKIN: No rashes, warm and dry HEAD: Atraumatic. Normocephalic. EYES: Pupils equal round and reactive. Extraocular motions intact. No scleral icterus. ENT: Nose without bleeding, or drainage, Airway patent. NECK: Trachea midline. Supple CARDIOVASCULAR: Regular rate and rhythm without murmurs, gallops, or rubs. RESPIRATORY: Diminished breath sounds more on the left base GASTROINTESTINAL: Abdomen soft, non-tender, nondistended. Positive bowel sounds MUSCULOSKELETAL: Extremities without clubbing, cyanosis, or edema. Pedal pulses appreciated NEUROLOGICAL: Awake and alert. Moves all extremity. Normal speech.no focal neurological deficit A/P Problem List: (1) Spontaneous pneumothorax ICD Code: J93.83 - Other pneumothorax (2) Rhabdomyolysis ICD Code: M62.82 - Rhabdomyolysis (3) Hypokalemia ICD Code: E87.6 - Hypokalemia (4) HTN (hypertension) ICD Code: I10 - Essential (primary) hypertension Assessment and Plan 1. Spontaneous Pneumothorax: Recurrent, h/o Chest Tube x5, recent admit 08/19- 08/26/17 for same, s/p VATS/Bleb Resection/Pleurodesis by Dr. Blunt on 08/23/14. CXR w/ possible pneumothorax, CT Chest w/ large left-sided pneumo, images reviewed by me. Dr. Blunt consulted by ER physician, recommended CT placement , s/p Chest Tube in ER. Analgesics/antiemetics, DuoNeb, Symbicort, resume home Spiriva. 2. Rhabdomyolysis: Mild. CPK 325. Check repeat CPK for trend. 3. Hypokalemia: Mild. K+ 3.4. Will recheck and replace as needed. 4. HTN: BP 160's on arrival, likely compounded by chest pain/SOB from Pneumo. Monitor BP, antihypertensives as needed. 5. DVT Prophylaxis: SCD/Teds 09/16: Continue monitoring chest x-ray, chest tube management per pulmonary and CVS, Discharge Planning With chest tube is out and cleared by other specialist Nichole Bonilla MD Sep 16, 2017 16:05
--- NOTE | 2017-09-16 16:54 | PD.CAR.PN ---
CVT Progress Note Subjective/Hospital Course: 47-year-old male with a PMH of Pulmonary Fibrosis, Migraine and h/o Spontaneous Pneumothorax / blebs who presented to ER w/ complaints of acute onset of left chest wall pain similar to previous episodes of Pneumothorax. States he was leaned forward and heard a "pop", had immediate complaints of left -sided chest wall pain and SOB. Denies injury or trauma. Recent admit 08/19-08/26/17 for similar presentation, found to have Spontaneous Ptx, s/p Left VATS, Bleb Resection and Pleurodesis by Dr. Blunt on 08/23/17. States he quit smoking earlier this year. On arrival, BP 164/103, HR 117, O2 sat 98% on RA, Afebrile. CBC unremarkable. Chemistry essentially unremarkable. CPK 325. INR 1.0. CXR with interstitial lung disease, left lower medial left hemithorax lucency, possible pneumo. CT Chest with prominent pneumothorax on the left. Left pig tail cath inserted in ED #10 pan[place] 09/12 cxr shows improving left PTX will keep to suction today, re-eval for water seal in am add IS / OOB 09/13 called by Nursing staff regarding results of am cxr results: . interval increase in the left pneumothorax as well as apparent volume loss in the right hemithorax and mediastinal shift to the right. 2. Heart size now appears enlarged. 3. Hazy opacity is noted in the right lung. stat consult placed to IR for second chest tube spoke with Dr Serna, also transfer to [facility]U for closer observation, pt remains stable on 1.5li, he does c/o of increased left sided chest pain since last pm "hurts to breathe " , no air leak in pleuravac, pig tail cath remains in place pt did recieve #10French Left subpulmonic chest tube this afternoon 09/14 left lateral PTX improved 11mm left anterior chest tube now to water seal postero lateral chest tube + air leak, to 20cm suction consult pulm, now on nebs , pulm toileting, consult PT had short burst VT, labs [pending 09/15 cardiology consult pending for short run Vtach left anterior chest tube removed ,left lateral chest tube in place with + air leak continue pulm toileting OOB ambulate 09/16 left lateral chest tube to water seal post cxr small left subpulmonic left PTX on room air Objective: GENERAL: SKIN: Warm and dry. HEAD: Normocephalic. EYES: No scleral icterus. No injection or drainage. NECK: Supple, trachea midline. No JVD or lymphadenopathy. CARDIOVASCULAR: Regular rate and rhythm without murmurs, gallops, or rubs. RESPIRATORY: Breath sounds equal bilaterally. No accessory muscle use. left chest tube in place + air leak , minimal drainage GASTROINTESTINAL: Abdomen soft, non-tender, nondistended. MUSCULOSKELETAL: No cyanosis, or edema. BACK: Nontender without obvious deformity. No CVA tenderness. Vital Signs Date Time Temp Pulse Resp B/P (MAP) Pulse Ox O2 Delivery O2 Flow Rate FiO2 09/16/17 12:15 99.3 105 16 111/72 (85) 93 09/16/17 12:15 97 Nasal Cannula 2.00 09/16/17 12:15 105 09/16/17 07:45 95 Nasal Cannula 2.00 09/16/17 07:45 75 09/16/17 07:45 97 Nasal Cannula 2.00 09/16/17 07:45 98.9 75 16 121/81 (94) 75 09/16/17 06:12 98.2 76 18 110/71 (84) 98 09/16/17 06:00 76 09/16/17 05:00 74 09/16/17 04:00 98 Room Air 09/16/17 04:00 88 09/16/17 03:00 83 09/16/17 02:00 74 09/16/17 01:00 82 09/16/17 00:19 97.1 85 18 124/80 (95) 97 09/16/17 00:18 97 Room Air 09/16/17 00:00 86 09/15/17 23:00 83 09/15/17 22:00 82 09/15/17 21:01 97 Room Air 09/15/17 21:00 79 09/15/17 20:12 99 21 09/15/17 20:00 97.0 71 18 116/66 (83) 97 09/15/17 20:00 71 09/15/17 19:00 88 09/15/17 18:14 79 09/15/17 17:00 74 Result Diagram: 09/13/17 0540 09/14/17 9795 (1) Recurrent spontaneous pneumothorax Plan: # 10 [place] pig tail cath in place, removed second chest tube # 10french placed by IR left postero lateral chest wall left posterolateral chest tube to wall suction + air leak IS/ OOB pain control (2) Left VATS exploration, bleb resection, pleuradesis Elizabeth Sood Sep 16, 2017 16:54
[2017-09-17] VITALS (29 sets, daily range): BP systolic 116–130; BP diastolic 80–90; PULSE 74–102; RESP 18–19; TEMP 97.1–98.3; O2SAT 93–99
[2017-09-17] MEDS: HYDROmorphone HCL PF 0.5 MG/0.5 ML SYRINGE IV PUSH PRN ×4 (04:29→21:31)
--- NOTE | 2017-09-17 05:33 | RADRPT ---
EXAM DATE/TIME: 09/17/2017 04:28 [facility] COMPARISON: CHEST EXPIRATION ONLY, September 16, 2017, 12:18. INDICATIONS : Shortness of breath, possible pneumothorax. MEDICAL HISTORY : Pulmonary fibrosis SURGICAL HISTORY : None. ENCOUNTER: Subsequent ACUITY: 1 week PAIN SCORE: 5/10 LOCATION: Left chest FINDINGS: Small caliber left chest tube remains in place. There is a small left basilar pneumothorax again note d. Patchy coarse interstitial opacities again seen diffusely of both lungs. There are upper lobe predomi nant bullous changes seen. No pleural effusion. No right pneumothorax. Heart size stable, upper limits of normal. CONCLUSION: 1. Persistent small pneumothorax at the left lung base. 2. Unchanged interstitial opacities. Arnoldo Christensen MD on September 17, 2017 at 5:30 Board Certified Radiologist. This report was verified electronically.
[2017-09-17] MEDS: RESP: ALBUTEROL 2.5 MG/IPRATROPIUM 0.5 MG NEB (SCH) NEB ×4 (07:44→19:34)
[2017-09-17] MEDS: ACETAMINOPHEN/HYDROcodone 325 MG/7.5 MG TAB PO PRN ×3 (08:51→17:21)
[2017-09-17] MEDS: DOCUSATE SODIUM 50 MG/SENNA 8.6 MG TAB PO SCH ×2 (08:51→21:00)
[2017-09-17] MEDS: BUDESONIDE-FORMOTEROL 160/4.5 MCG INHALER INH SCH ×2 (08:52→21:31)
[2017-09-17] MEDS: SODIUM CHLORIDE 0.9% FLUSH 10 ML FLUSH IV FLUSH SCH ×2 (08:52→21:32)
--- NOTE | 2017-09-17 08:52 | PD.CAR.PN ---
CVT Progress Note Subjective/Hospital Course: 47-year-old male with a PMH of Pulmonary Fibrosis, Migraine and h/o Spontaneous Pneumothorax / blebs who presented to ER w/ complaints of acute onset of left chest wall pain similar to previous episodes of Pneumothorax. States he was leaned forward and heard a "pop", had immediate complaints of left -sided chest wall pain and SOB. Denies injury or trauma. Recent admit 08/19-08/26/17 for similar presentation, found to have Spontaneous Ptx, s/p Left VATS, Bleb Resection and Pleurodesis by Dr. Blunt on 08/23/17. States he quit smoking earlier this year. On arrival, BP 164/103, HR 117, O2 sat 98% on RA, Afebrile. CBC unremarkable. Chemistry essentially unremarkable. CPK 325. INR 1.0. CXR with interstitial lung disease, left lower medial left hemithorax lucency, possible pneumo. CT Chest with prominent pneumothorax on the left. Left pig tail cath inserted in ED #10 [place] 09/12 cxr shows improving left PTX will keep to suction today, re-eval for water seal in am add IS / OOB 09/13 called by Nursing staff regarding results of am cxr results: . interval increase in the left pneumothorax as well as apparent volume loss in the right hemithorax and mediastinal shift to the right. 2. Heart size now appears enlarged. 3. Hazy opacity is noted in the right lung. stat consult placed to IR for second chest tube spoke with Dr Serna, also transfer to [facility]U for closer observation, pt remains stable on 1.5li, he does c/o of increased left sided chest pain since last pm "hurts to breathe " , no air leak in pleuravac, pig tail cath remains in place pt did recieve #10French Left subpulmonic chest tube this afternoon 09/14 left lateral PTX improved 11mm left anterior chest tube now to water seal postero lateral chest tube + air leak, to 20cm suction consult pulm, now on nebs , pulm toileting, consult PT had short burst VT, labs [pending 09/15 cardiology consult pending for short run Vtach left anterior chest tube removed ,left lateral chest tube in place with + air leak continue pulm toileting OOB ambulate 09/16 left lateral chest tube to water seal post cxr small left subpulmonic left PTX on room air 09/17/17 No complaints Objective: Vital Signs Date Time Temp Pulse Resp B/P (MAP) Pulse Ox O2 Delivery O2 Flow Rate FiO2 09/17/17 07:44 93 09/17/17 06:12 74 09/17/17 05:06 80 09/17/17 04:13 83 09/17/17 03:40 98.0 90 19 125/80 (95) 93 09/17/17 03:16 85 09/17/17 02:35 84 09/17/17 01:02 86 09/17/17 00:13 88 09/16/17 23:49 92 09/16/17 23:19 98.0 107 20 129/75 (93) 93 09/16/17 22:00 96 09/16/17 21:00 86 09/16/17 20:15 104 09/16/17 19:52 94 Nasal Cannula 2.00 09/16/17 19:52 118 09/16/17 19:52 98.2 103 18 121/73 (89) 94 09/16/17 18:00 88 09/16/17 17:00 92 09/16/17 16:45 97 Nasal Cannula 2.00 09/16/17 16:00 92 09/16/17 15:30 92 09/16/17 15:30 98.7 92 16 108/71 (83) 96 09/16/17 15:30 96 Nasal Cannula 2.00 09/16/17 15:00 92 09/16/17 14:00 98 09/16/17 13:00 110 09/16/17 12:15 99.3 105 16 111/72 (85) 93 09/16/17 12:15 97 Nasal Cannula 2.00 09/16/17 12:15 105 09/16/17 11:00 92 09/16/17 10:00 86 09/16/17 09:00 96 Result Diagram: 09/13/17 0540 09/14/17 1325 Imaging: Last 24 hours Impressions Chest X-Ray 09/17/17 0600 Signed Impressions: Service Date/Time: Sunday, September 17, 2017 04:28 - CONCLUSION: 1. Persistent small pneumothorax at the left lung base. 2. Unchanged interstitial opacities. Arnoldo Christensen MD Chest X-Ray 09/16/17 1200 Signed Impressions: Service Date/Time: Saturday, September 16, 2017 12:18 - CONCLUSION: Development of small subpulmonic pneumothorax on the left with the left chest tube on water seal. Inder Becerra Jr., MD Cardiovascular: RRR Pulmonary: CTA CT: No air leak this morning Plan: Chest catheter management per IR. No air leak with stable CXR. Recommend water seal. (1) Recurrent spontaneous pneumothorax Plan: # 10 [place] pig tail cath in place, removed second chest tube # 10french placed by IR left postero lateral chest wall left posterolateral chest tube to wall suction + air leak IS/ OOB pain control (2) Left VATS exploration, bleb resection, pleuradesis Kati Blunt MD Sep 17, 2017 08:52
[2017-09-17] MEDS: POLYETHYLENE GLYCOL 17 GM PKG PO SCH (08:53)
--- NOTE | 2017-09-17 11:06 | HHI.PR ---
Subjective Remarks Patient reports he is feeling okay. Pigtail catheter has been removed. He denies any shortness of breath or chest pain. Objective Vitals Vital Signs Date Time Temp Pulse Resp B/P (MAP) Pulse Ox O2 Delivery O2 Flow Rate FiO2 09/17/17 07:45 98.0 95 18 122/90 (101) 98 09/17/17 07:45 98 Nasal Cannula 1.50 09/17/17 07:44 93 09/17/17 06:12 74 09/17/17 05:06 80 09/17/17 04:13 83 09/17/17 03:40 98.0 90 19 125/80 (95) 93 09/17/17 03:16 85 09/17/17 02:35 84 09/17/17 01:02 86 09/17/17 00:13 88 09/16/17 23:49 92 09/16/17 23:19 98.0 107 20 129/75 (93) 93 09/16/17 22:00 96 09/16/17 21:00 86 09/16/17 20:15 104 09/16/17 19:52 94 Nasal Cannula 2.00 09/16/17 19:52 118 09/16/17 19:52 98.2 103 18 121/73 (89) 94 09/16/17 18:00 88 09/16/17 17:00 92 09/16/17 16:45 97 Nasal Cannula 2.00 09/16/17 16:00 92 09/16/17 15:30 92 09/16/17 15:30 98.7 92 16 108/71 (83) 96 09/16/17 15:30 96 Nasal Cannula 2.00 09/16/17 15:00 92 09/16/17 14:00 98 09/16/17 13:00 110 09/16/17 12:15 99.3 105 16 111/72 (85) 93 09/16/17 12:15 97 Nasal Cannula 2.00 09/16/17 12:15 105 I/O 09/16/17 09/16/17 09/16/17 09/17/17 09/17/17 09/17/17 07:00 15:00 23:00 07:00 15:00 23:00 Intake Total 680 ml 900 ml 360 ml Output Total 500 ml 60 ml 1030 ml 1050 ml Balance 180 ml -60 ml -130 ml -690 ml Intake Oral 680 ml 900 ml 360 ml Output Urine Total 500 ml 1000 ml 1000 ml Chest Tube Drainage Total 60 ml 30 ml 50 ml # Bowel Movements 0 1 0 Result Diagram: 09/13/17 0540 09/14/17 1325 Imaging Last Impressions Chest X-Ray 09/17/17 0600 Signed Impressions: Service Date/Time: Sunday, September 17, 2017 04:28 - CONCLUSION: 1. Persistent small pneumothorax at the left lung base. 2. Unchanged interstitial opacities. Arnoldo Christensen MD Chest Tube Insertion 09/13/17 0000 Signed Impressions: Service Date/Time: Wednesday, September 13, 2017 14:01 - CONCLUSION: Uncomplicated chest tube placement as above. Inder Becerra Jr., MD Chest CT 09/12/17 0000 Signed Impressions: Service Date/Time: Tuesday, September 12, 2017 02:15 - CONCLUSION: 1. Prominent pneumothorax in the left. 2. Chronic interstitial densities. 3. 8mm nodule right upper lobe. Followup CT chest in 6 months recommended for stability Kenneth Elizabeth MD Objective Remarks GENERAL: No acute distress SKIN: Left chest dressing intact. Left chest tube in place. CARDIOVASCULAR: Regular rate and rhythm. RESPIRATORY: Clear to auscultation bilaterally. Diminished breath sounds left base. GASTROINTESTINAL: Abdomen soft, non-tender, nondistended. Hepatic and splenic margins not palpable. MUSCULOSKELETAL: Extremities without edema. PSYCHIATRIC: Appropriate mood and affect; insight and judgment normal. A/P Problem List: (1) Spontaneous pneumothorax ICD Code: J93.83 - Other pneumothorax (2) Rhabdomyolysis ICD Code: M62.82 - Rhabdomyolysis (3) Hypokalemia ICD Code: E87.6 - Hypokalemia (4) HTN (hypertension) ICD Code: I10 - Essential (primary) hypertension Assessment and Plan 47 year old male admitted with recurrent spontaneous pneumothorax. Patient is status post VATS/Bleb Resection/Pleurodesis by Dr. Blunt on 08/23/14. - Chest tube management for CT surgery. Continue to wean off. One more chest tube still in. Pulmonology following. - Supplemental oxygen as needed. Pain control as needed HTN: BP 160's on arrival, likely compounded by chest pain/SOB from Pneumo. Monitor BP, antihypertensives as needed. DVT Prophylaxis: SCD/Teds Discharge Planning Discharge once cleared by all specialist. Milton Rodriguez MD Sep 17, 2017 11:06
[2017-09-18] VITALS (30 sets, daily range): BP systolic 102–123; BP diastolic 65–86; PULSE 74–95; RESP 16–18; TEMP 97.5–98.4; O2SAT 94–98
[2017-09-18] MEDS: ACETAMINOPHEN/HYDROcodone 325 MG/7.5 MG TAB PO PRN ×5 (00:05→21:01)
[2017-09-18] MEDS: HYDROmorphone HCL PF 0.5 MG/0.5 ML SYRINGE IV PUSH PRN ×4 (02:08→19:45)
[2017-09-18] MEDS: POLYETHYLENE GLYCOL 17 GM PKG PO SCH (08:30)
[2017-09-18] MEDS: DOCUSATE SODIUM 50 MG/SENNA 8.6 MG TAB PO SCH ×2 (08:30→21:01)
[2017-09-18] MEDS: BUDESONIDE-FORMOTEROL 160/4.5 MCG INHALER INH SCH ×2 (08:31→21:01)
[2017-09-18] MEDS: SODIUM CHLORIDE 0.9% FLUSH 10 ML FLUSH IV FLUSH SCH ×2 (08:31→21:02)
[2017-09-18] MEDS: RESP: ALBUTEROL 2.5 MG/IPRATROPIUM 0.5 MG NEB (SCH) NEB ×3 (09:17→13:09)
--- NOTE | 2017-09-18 10:20 | HHI.PR ---
Subjective Remarks Reports feeling OK. No sob or chest pain. Objective Vitals Vital Signs Date Time Temp Pulse Resp B/P (MAP) Pulse Ox O2 Delivery O2 Flow Rate FiO2 09/18/17 09:19 95 Nasal Cannula 2.00 09/18/17 06:00 76 09/18/17 05:00 74 09/18/17 04:30 98.0 81 18 120/85 (97) 94 09/18/17 04:00 74 09/18/17 03:00 89 09/18/17 02:00 76 09/18/17 01:00 77 09/18/17 00:07 97.5 95 18 102/65 (77) 98 09/18/17 00:00 83 09/17/17 23:00 77 09/17/17 22:00 82 09/17/17 21:00 82 09/17/17 20:00 97.1 95 18 130/83 (99) 96 09/17/17 19:34 99 Nasal Cannula 2.00 09/17/17 19:32 97 Nasal Cannula 1.50 09/17/17 19:00 80 09/17/17 17:00 90 09/17/17 16:00 86 09/17/17 15:45 98.2 91 18 118/84 (95) 96 09/17/17 15:00 80 09/17/17 14:06 20 09/17/17 14:00 88 09/17/17 13:00 94 09/17/17 12:00 92 09/17/17 11:45 98.3 91 18 116/85 (95) 96 09/17/17 11:00 89 I/O 09/17/17 09/17/17 09/17/17 09/18/17 09/18/17 09/18/17 07:00 15:00 23:00 07:00 15:00 23:00 Intake Total 360 ml 825 ml 680 ml Output Total 1050 ml 1075 ml 700 ml Balance -690 ml -250 ml -20 ml Intake Oral 360 ml 825 ml 680 ml Output Urine Total 1000 ml 975 ml 700 ml Chest Tube Drainage Total 50 ml 100 ml # Bowel Movements 0 0 Result Diagram: 09/14/17 0345 Objective Remarks GENERAL: No acute distress SKIN: Left chest dressing intact. Left chest tube in place. CARDIOVASCULAR: Regular rate and rhythm. RESPIRATORY: Clear to auscultation bilaterally. Diminished breath sounds left base. MUSCULOSKELETAL: Extremities without edema. PSYCHIATRIC: Appropriate mood and affect; insight and judgment normal. A/P Problem List: (1) Spontaneous pneumothorax ICD Code: J93.83 - Other pneumothorax (2) Rhabdomyolysis ICD Code: M62.82 - Rhabdomyolysis (3) Hypokalemia ICD Code: E87.6 - Hypokalemia (4) HTN (hypertension) ICD Code: I10 - Essential (primary) hypertension Assessment and Plan 47 year old male admitted with recurrent spontaneous pneumothorax. Patient is status post VATS/Bleb Resection/Pleurodesis by Dr. Blunt on 08/23/14. - Chest tube management for CT surgery. Continue to wean off. Pulmonology following. - Supplemental oxygen as needed. Pain control as needed HTN: BP 160's on arrival, likely compounded by chest pain/SOB from Pneumo. Monitor BP, antihypertensives as needed. DVT Prophylaxis: SCD/Teds Discharge Planning Discharge once cleared by CT surgery. Milton Rodriguez MD Sep 18, 2017 10:20
[2017-09-19] VITALS (26 sets, daily range): BP systolic 107–123; BP diastolic 66–82; PULSE 68–90; RESP 16–18; TEMP 97.8–98.3; O2SAT 93–98
[2017-09-19] MEDS: ACETAMINOPHEN/HYDROcodone 325 MG/7.5 MG TAB PO PRN ×3 (01:34→11:48)
[2017-09-19] MEDS: HYDROmorphone HCL PF 0.5 MG/0.5 ML SYRINGE IV PUSH PRN ×2 (05:42→09:45)
[2017-09-19] MEDS: DOCUSATE SODIUM 50 MG/SENNA 8.6 MG TAB PO SCH ×2 (08:53→20:34)
[2017-09-19] MEDS: POLYETHYLENE GLYCOL 17 GM PKG PO SCH (08:53)
[2017-09-19] MEDS: SODIUM CHLORIDE 0.9% FLUSH 10 ML FLUSH IV FLUSH SCH ×2 (08:54→20:41)
[2017-09-19] MEDS: BUDESONIDE-FORMOTEROL 160/4.5 MCG INHALER INH SCH ×2 (08:54→20:41)
--- NOTE | 2017-09-19 13:12 | HHI.PR ---
Subjective Remarks Patient states he is still having pain, chest tube site. Objective Vitals Vital Signs Date Time Temp Pulse Resp B/P (MAP) Pulse Ox O2 Delivery O2 Flow Rate FiO2 09/19/17 10:20 18 09/19/17 10:00 82 09/19/17 09:00 84 09/19/17 08:52 18 09/19/17 08:43 98 Nasal Cannula 2.00 09/19/17 08:00 68 09/19/17 07:10 Nasal Cannula 1.00 09/19/17 07:10 97.8 72 16 114/81 (92) 98 09/19/17 07:00 77 09/19/17 06:19 72 09/19/17 05:15 82 09/19/17 04:02 71 09/19/17 03:15 79 09/19/17 03:14 98.2 82 18 123/82 (96) 95 09/19/17 02:12 80 09/19/17 01:00 89 09/19/17 00:02 85 09/18/17 23:00 98.4 92 16 123/86 (98) 97 09/18/17 23:00 83 09/18/17 22:12 83 09/18/17 21:00 88 09/18/17 20:00 84 09/18/17 19:00 98.1 82 16 116/86 (96) 97 09/18/17 19:00 79 09/18/17 19:00 98 Nasal Cannula 2.00 09/18/17 18:00 83 09/18/17 17:00 81 09/18/17 16:00 84 09/18/17 15:34 97.7 80 16 118/76 (90) 96 09/18/17 15:00 79 09/18/17 14:00 82 I/O 09/18/17 09/18/17 09/18/17 09/19/17 09/19/17 09/19/17 07:00 15:00 23:00 07:00 15:00 23:00 Intake Total 680 ml 900 ml 840 ml Output Total 700 ml 1630 ml 1350 ml Balance -20 ml -730 ml -510 ml Intake Oral 680 ml 900 ml 840 ml Output Urine Total 700 ml 1600 ml 1300 ml Chest Tube Drainage Total 30 ml 50 ml # Voids 2 Objective Remarks GENERAL: No acute distress SKIN: Left chest dressing intact. Left chest tube in place. + air leak CARDIOVASCULAR: Regular rate and rhythm. RESPIRATORY: Clear to auscultation bilaterally. Diminished breath sounds left base. MUSCULOSKELETAL: Extremities without edema. PSYCHIATRIC: Appropriate mood and affect; insight and judgment normal. A/P Problem List: (1) Spontaneous pneumothorax ICD Code: J93.83 - Other pneumothorax (2) Rhabdomyolysis ICD Code: M62.82 - Rhabdomyolysis (3) Hypokalemia ICD Code: E87.6 - Hypokalemia (4) HTN (hypertension) ICD Code: I10 - Essential (primary) hypertension Assessment and Plan 47 year old male admitted with recurrent spontaneous pneumothorax. Patient is status post VATS/Bleb Resection/Pleurodesis by Dr. Blunt on 08/23/14. - Chest tube management for CT surgery. Continue to wean off. Pulmonology following. ADRIEN RN. IR will re eval tomorrow, cont suction. + air leak. - Supplemental oxygen as needed. Pain control as needed. CHange to Percocet and Morphine for breakthrough pain. DC Dilaudid. DVT Prophylaxis: SCD/Teds Discharge Planning DC when chest tube is out if stable. Milton Rodriguez MD Sep 19, 2017 13:12
[2017-09-19] MEDS ORDERED: MORPHINE SULFATE 2 MG/ML INJ IM PRN (13:45)
[2017-09-19] MEDS: MORPHINE SULFATE 2 MG/ML INJ IV PRN ×2 (14:15→20:41)
[2017-09-19] MEDS: oxyCODONE/ACETAMINOPHEN 10 MG/325 MG TAB PO PRN ×2 (15:56→21:55)
[2017-09-20] VITALS (27 sets, daily range): BP systolic 95–150; BP diastolic 60–89; PULSE 63–112; RESP 16–18; TEMP 97.7–98.4; O2SAT 93–97
[2017-09-20] MEDS: MORPHINE SULFATE 2 MG/ML INJ IV PRN ×2 (01:08→15:12)
[2017-09-20] MEDS: oxyCODONE/ACETAMINOPHEN 10 MG/325 MG TAB PO PRN ×3 (05:44→19:20)
[2017-09-20] MEDS: DOCUSATE SODIUM 50 MG/SENNA 8.6 MG TAB PO SCH ×2 (08:55→20:56)
[2017-09-20] MEDS: POLYETHYLENE GLYCOL 17 GM PKG PO SCH (08:56)
[2017-09-20] MEDS: SODIUM CHLORIDE 0.9% FLUSH 10 ML FLUSH IV FLUSH SCH ×2 (08:57→20:56)
[2017-09-20] MEDS: BUDESONIDE-FORMOTEROL 160/4.5 MCG INHALER INH SCH ×2 (08:58→20:58)
--- NOTE | 2017-09-20 12:55 | PD.CAR.PN ---
CVT Progress Note Subjective/Hospital Course: 47-year-old male with a PMH of Pulmonary Fibrosis, Migraine and h/o Spontaneous Pneumothorax / blebs who presented to ER w/ complaints of acute onset of left chest wall pain similar to previous episodes of Pneumothorax. States he was leaned forward and heard a "pop", had immediate complaints of left -sided chest wall pain and SOB. Denies injury or trauma. Recent admit 08/19-08/26/17 for similar presentation, found to have Spontaneous Ptx, s/p Left VATS, Bleb Resection and Pleurodesis by Dr. Blunt on 08/23/17. States he quit smoking earlier this year. On arrival, BP 164/103, HR 117, O2 sat 98% on RA, Afebrile. CBC unremarkable. Chemistry essentially unremarkable. CPK 325. INR 1.0. CXR with interstitial lung disease, left lower medial left hemithorax lucency, possible pneumo. CT Chest with prominent pneumothorax on the left. Left pig tail cath inserted in ED #10 [place] 09/12 cxr shows improving left PTX will keep to suction today, re-eval for water seal in am add IS / OOB 09/13 called by Nursing staff regarding results of am cxr results: . interval increase in the left pneumothorax as well as apparent volume loss in the right hemithorax and mediastinal shift to the right. 2. Heart size now appears enlarged. 3. Hazy opacity is noted in the right lung. stat consult placed to IR for second chest tube spoke with Dr Serna, also transfer to [facility] for closer observation, pt remains stable on 1.5li, he does c/o of increased left sided chest pain since last pm "hurts to breathe " , no air leak in pleuravac, pig tail cath remains in place pt did recieve #10French Left subpulmonic chest tube this afternoon 09/14 left lateral PTX improved 11mm left anterior chest tube now to water seal postero lateral chest tube + air leak, to 20cm suction consult pulm, now on nebs , pulm toileting, consult PT had short burst VT, labs [pending 09/15 cardiology consult pending for short run Vtach left anterior chest tube removed ,left lateral chest tube in place with + air leak continue pulm toileting OOB ambulate 09/16 left lateral chest tube to water seal post cxr small left subpulmonic left PTX on room air 09/17/17 No complaints 09/20/17 c/o pain at chest tube site Objective: Vital Signs Date Time Temp Pulse Resp B/P (MAP) Pulse Ox O2 Delivery O2 Flow Rate FiO2 09/20/17 12:05 97.7 87 16 122/85 (97) 97 09/20/17 08:31 93 21 09/20/17 07:34 98.1 79 18 118/76 (90) 93 09/20/17 06:45 18 09/20/17 06:00 75 09/20/17 05:12 76 09/20/17 04:04 74 09/20/17 03:09 75 09/20/17 03:00 98.2 78 18 127/81 (96) 97 09/20/17 01:15 18 09/19/17 23:00 98.1 80 18 107/66 (80) 93 09/19/17 23:00 90 09/19/17 22:05 97 Nasal Cannula 1.00 09/19/17 19:00 98.3 78 16 117/73 (88) 98 09/19/17 19:00 Nasal Cannula 1.00 09/19/17 19:00 75 09/19/17 18:00 76 09/19/17 17:00 84 09/19/17 16:00 82 09/19/17 15:30 98.0 72 17 111/81 (91) 96 09/19/17 15:00 80 09/19/17 14:00 76 09/19/17 13:00 82 Imaging: CXR this AM shows small basilar PTX Pulmonary: CTA GI/: NABS CT: small air leak Plan: Chest tube to water seal If stable, he may be a candidate for a pneumostat to be discharged with chest tube. (1) Recurrent spontaneous pneumothorax Plan: # 10 [place] pig tail cath in place, removed second chest tube # 10french placed by IR left postero lateral chest wall left posterolateral chest tube to wall suction + air leak IS/ OOB pain control (2) Left VATS exploration, bleb resection, pleuradesis Kati Blunt MD Sep 20, 2017 12:55
--- NOTE | 2017-09-20 13:34 | HHI.PR ---
Subjective Remarks Pain at the chest tube site. No other issues. Objective Vitals Vital Signs Date Time Temp Pulse Resp B/P (MAP) Pulse Ox O2 Delivery O2 Flow Rate FiO2 09/20/17 12:05 97.7 87 16 122/85 (97) 97 09/20/17 08:31 93 21 09/20/17 07:34 98.1 79 18 118/76 (90) 93 09/20/17 06:45 18 09/20/17 06:00 75 09/20/17 05:12 76 09/20/17 04:04 74 09/20/17 03:09 75 09/20/17 03:00 98.2 78 18 127/81 (96) 97 09/20/17 01:15 18 09/19/17 23:00 98.1 80 18 107/66 (80) 93 09/19/17 23:00 90 09/19/17 22:05 97 Nasal Cannula 1.00 09/19/17 19:00 98.3 78 16 117/73 (88) 98 09/19/17 19:00 Nasal Cannula 1.00 09/19/17 19:00 75 09/19/17 18:00 76 09/19/17 17:00 84 09/19/17 16:00 82 09/19/17 15:30 98.0 72 17 111/81 (91) 96 09/19/17 15:00 80 09/19/17 14:00 76 I/O 09/19/17 09/19/17 09/19/17 09/20/17 09/20/17 09/20/17 07:00 15:00 23:00 07:00 15:00 23:00 Intake Total 840 ml 860 ml 480 ml Output Total 1350 ml 860 ml 1240 ml Balance -510 ml 0 ml -760 ml Intake Oral 840 ml 860 ml 480 ml Output Urine Total 1300 ml 800 ml 1200 ml Chest Tube Drainage Total 50 ml 60 ml 40 ml # Voids 2 3 2 Objective Remarks GENERAL: No acute distress SKIN: Left chest dressing intact. Left chest tube in place. + air leak CARDIOVASCULAR: Regular rate and rhythm. RESPIRATORY: Clear to auscultation bilaterally. Diminished breath sounds left base. MUSCULOSKELETAL: Extremities without edema. PSYCHIATRIC: Appropriate mood and affect; insight and judgment normal. A/P Problem List: (1) Spontaneous pneumothorax ICD Code: J93.83 - Other pneumothorax (2) Rhabdomyolysis ICD Code: M62.82 - Rhabdomyolysis (3) Hypokalemia ICD Code: E87.6 - Hypokalemia (4) HTN (hypertension) ICD Code: I10 - Essential (primary) hypertension Assessment and Plan 47 year old male admitted with recurrent spontaneous pneumothorax. Patient is status post VATS/Bleb Resection/Pleurodesis by Dr. Blunt on 08/23/14. - Chest tube management for CT surgery. Chest tube to water seal. Repeat chest xray. Consider dc home with pneumostat with chest tube per CT surgery. - Supplemental oxygen as needed. Pain control as needed. DVT Prophylaxis: SCD/Teds Discharge Planning DC when cleared by CT surgery. Milton Rodriguez MD Sep 20, 2017 13:34
--- NOTE | 2017-09-20 14:35 | RADRPT ---
EXAM DATE/TIME: 09/20/2017 12:36 [facility] COMPARISON: CHEST SINGLE AP, September 17, 2017, 4:28. INDICATIONS : Shortness of breath; evaluate for pneumothorax. MEDICAL HISTORY : Pulmonary fibrosis SURGICAL HISTORY : None. ENCOUNTER: Subsequent ACUITY: 1 month PAIN SCORE: 5/10 LOCATION: Bilateral chest FINDINGS: There is a small left basilar chest tube which is unchanged in position. A small residual left pneum othorax is noted at the left lung base and is slightly more prominent than on the previous examinatio n. Scattered patchy infiltrates are noted bilaterally and are worse on the right than the left. The heart is enlarged. CONCLUSION: 1. Slight interval enlargement of the left basilar pneumothorax compared to the previous examination. 2. Scattered patchy infiltrates bilaterally (right worse than the left) which are stable. 3. Cardiomegaly. Francesco Mandujano MD on September 20, 2017 at 13:56 Board Certified Radiologist. This report was verified electronically.
[2017-09-21] VITALS (27 sets, daily range): BP systolic 112–127; BP diastolic 64–85; PULSE 80–96; RESP 18–20; TEMP 97.6–98.2; O2SAT 93–96
[2017-09-21] MEDS: oxyCODONE/ACETAMINOPHEN 10 MG/325 MG TAB PO PRN ×3 (02:27→19:20)
--- NOTE | 2017-09-21 05:58 | RADRPT ---
EXAM DATE/TIME: 09/21/2017 04:14 [facility] COMPARISON: CHEST SINGLE AP, September 20, 2017, 12:36. INDICATIONS : Short of breath. MEDICAL HISTORY : Pulmonary fibrosis SURGICAL HISTORY : None. ENCOUNTER: Subsequent ACUITY: 1 month PAIN SCORE: 0/10 LOCATION: Bilateral chest FINDINGS: A pigtail thoracostomy tube remains at the left lung base. There is a small pneumothorax in the later al left costophrenic angle which may be minimally increased in size. There is mild lobular pleural th ickening or loculated fluid laterally on the left. A staple line is seen in the left apex. There is s table fairly diffuse reticulonodular interstitial disease. Alveolar disease at the right base has res olved or nearly resolved. Accounting for differences in projection. Cardiac contours are stable. CONCLUSION: Slight increase in size of left base loculated pneumothorax. Improved aeration in the right lung base. Arnoldo Gonzalez MD on September 21, 2017 at 5:54 Board Certified Radiologist. This report was verified electronically.
[2017-09-21] MEDS: DOCUSATE SODIUM 50 MG/SENNA 8.6 MG TAB PO SCH ×2 (09:00→21:02)
[2017-09-21] MEDS: BUDESONIDE-FORMOTEROL 160/4.5 MCG INHALER INH SCH ×2 (09:00→21:03)
[2017-09-21] MEDS: POLYETHYLENE GLYCOL 17 GM PKG PO SCH (09:00)
[2017-09-21] MEDS: SODIUM CHLORIDE 0.9% FLUSH 10 ML FLUSH IV FLUSH SCH ×2 (09:00→21:00)
--- NOTE | 2017-09-21 14:29 | HHI.PR ---
Subjective Remarks Repeat chest x-ray with persistent left basilar pneumothorax. Improved aeration of the right lung. Short runs of SVT on the monitor, patient does not feel palpitations or chest pain. Objective Vitals Vital Signs Date Time Temp Pulse Resp B/P (MAP) Pulse Ox O2 Delivery O2 Flow Rate FiO2 09/21/17 13:00 98.1 88 18 112/68 (83) 96 09/21/17 13:00 88 09/21/17 12:00 81 09/21/17 11:00 80 09/21/17 10:00 81 09/21/17 09:19 97 Nasal Cannula 1.00 09/21/17 09:00 80 09/21/17 08:00 98.0 96 18 124/85 (98) 96 09/21/17 08:00 82 09/21/17 07:00 80 09/21/17 06:08 95 09/21/17 05:08 90 09/21/17 04:02 88 09/21/17 03:36 18 09/21/17 03:35 89 09/21/17 03:09 98.2 95 18 127/84 (98) 96 09/21/17 02:13 83 09/21/17 01:07 90 09/21/17 00:27 86 09/20/17 23:00 88 09/20/17 23:00 98.4 87 18 95/60 (72) 93 09/20/17 22:00 84 09/20/17 21:00 89 09/20/17 20:00 98 09/20/17 19:00 101 09/20/17 19:00 97.8 96 18 135/87 (103) 96 09/20/17 19:00 97 Nasal Cannula 1.00 09/20/17 18:00 94 09/20/17 17:00 104 09/20/17 16:00 112 09/20/17 15:24 98.0 98 18 144/89 (107) 95 09/20/17 15:20 17 09/20/17 15:00 95 I/O 09/20/17 09/20/17 09/20/17 09/21/17 09/21/17 09/21/17 07:00 15:00 23:00 07:00 15:00 23:00 Intake Total 480 ml 500 ml 420 ml Output Total 1240 ml 890 ml 710 ml Balance -760 ml -390 ml -290 ml Intake Oral 480 ml 500 ml 420 ml Output Urine Total 1200 ml 850 ml 700 ml Chest Tube Drainage Total 40 ml 40 ml 10 ml # Voids 2 2 # Bowel Movements 0 Objective Remarks GENERAL: No acute distress SKIN: Left chest dressing intact. Left chest tube in place. + air leak CARDIOVASCULAR: Regular rate and rhythm. RESPIRATORY: Clear to auscultation bilaterally. Diminished breath sounds left base. MUSCULOSKELETAL: Extremities without edema. PSYCHIATRIC: Appropriate mood and affect; insight and judgment normal. A/P Problem List: (1) Spontaneous pneumothorax ICD Code: J93.83 - Other pneumothorax (2) Rhabdomyolysis ICD Code: M62.82 - Rhabdomyolysis (3) Hypokalemia ICD Code: E87.6 - Hypokalemia (4) HTN (hypertension) ICD Code: I10 - Essential (primary) hypertension Assessment and Plan 47 year old male admitted with recurrent spontaneous pneumothorax. Patient is status post VATS/Bleb Resection/Pleurodesis by Dr. Blunt on 08/23/14. - Chest tube management for CT surgery. Chest tube to water seal. Repeat chest xray with persistent pneumo. Further chest tube management per CT surgery. - Supplemental oxygen as needed. Pain control as needed. SVT: Short runs on the monitor. Asymptomatic. Could be related to pulmonary issues above. - Consult Cardiology - Continue to monitor on tele. Obtain 12 lead EKG. DVT Prophylaxis: SCD/Teds Discharge Planning DC when cleared by specialist. Milton Rodriguez MD Sep 21, 2017 14:29
[2017-09-21] MEDS: MORPHINE SULFATE 2 MG/ML INJ IV PRN (17:31)
[2017-09-22] VITALS (28 sets, daily range): BP systolic 106–123; BP diastolic 56–88; PULSE 69–154; RESP 18–20; TEMP 97.7–98.2; O2SAT 93–96
[2017-09-22] MEDS: oxyCODONE/ACETAMINOPHEN 10 MG/325 MG TAB PO PRN ×4 (01:19→20:07)
[2017-09-22] MEDS: SODIUM CHLORIDE 0.9% FLUSH 10 ML FLUSH IV FLUSH SCH ×2 (09:06→21:56)
[2017-09-22] MEDS: BUDESONIDE-FORMOTEROL 160/4.5 MCG INHALER INH SCH ×2 (09:06→21:00)
[2017-09-22] MEDS: DOCUSATE SODIUM 50 MG/SENNA 8.6 MG TAB PO SCH ×2 (09:07→21:00)
[2017-09-22] MEDS: POLYETHYLENE GLYCOL 17 GM PKG PO SCH (09:07)
--- NOTE | 2017-09-22 10:10 | RADRPT ---
EXAM DATE/TIME: 09/22/2017 09:27 [facility] COMPARISON: CHEST SINGLE AP, September 21, 2017, 4:14. INDICATIONS : Evaluate for Pneumothorax. Patient complains of occasional shortness of breath and soreness at site o f chest tube. MEDICAL HISTORY : Pulmonary fibrosis, multiple spontaneous pneumothorax SURGICAL HISTORY : Chest tube left side. ENCOUNTER: Subsequent ACUITY: 1 week PAIN SCORE: 0/10 LOCATION: Bilateral chest FINDINGS: A small left basilar chest tube is again noted and unchanged in position. The small left basilar pne umothorax is still present and is stable. Scattered infiltrates are unchanged. The heart is stable. CONCLUSION: 1. Stable small left basilar pneumothorax. 2. Scattered infiltrates are unchanged. Francesco Mandujano MD on September 22, 2017 at 9:56 Board Certified Radiologist. This report was verified electronically.
--- NOTE | 2017-09-22 10:11 | PD.CONS ---
HPI Consult Requested By Primary Care Physician No Primary Care Physician History of Present Illness 47-year-old male with a PMHx of Pulmonary Fibrosis, Migraine and h/o Spontaneous Pneumothorax who presented to ER w/ complaints of acute onset of left chest wall pain similar to previous episodes of Pneumothorax. States he was leaned forward and heard a "pop", had immediate complaints of left-sided chest wall pain and SOB. Denies injury or trauma. Recent admit 08/19-08/26/17 for similar presentation, found to have Spontaneous Ptx, s/p Left VATS, Bleb Resection and Pleurodesis by Dr. Blunt on 08/23/17. States he quit smoking earlier this year. CT Chest with prominent pneumothorax on the left. Dr. Blunt consulted s/p Chest Tube placement. Cardiology consulted for short run ?Vtach asymptomatic. Review of Systems Consitutional: DENIES: Fatigue, Fever, Chills, Weight gain, Weight loss Eyes: DENIES: Amaurosis Fugax, Change in vision HEENT: DENIES: Lightheadedness, Change in hearing Respiratory: DENIES: See HPI, Cough, Snoring, Shortness of breath, Wheezing, Sputum production Cardiovascular: DENIES: See HPI, Chest pain, Palpitations, Syncope, Tachycardia Gastrointestinal: DENIES: Nausea, Vomiting, Change in bowel habits, Reflux, Bloody stools, Melena Genitourinary: DENIES: Urinary incontinence, Difficulty voiding Integumentary: DENIES: Rash Neurologic: DENIES: Tingling or numbness, Memory problems, Poor Balance, Stroke symptoms Musculoskeletal: DENIES: Joint pain, Muscle pain, Limited range of motion, Back pain Psychiatric: DENIES: Anxiety, Depression, Sleep disturbances Hematologic: DENIES: Bruising tendencies, Bleeding tendencies Endocrine: DENIES: Weight gain, Weight loss, Thyroid disease Past Family Social History Allergies: Coded Allergies: No Known Allergies (Unverified , 09/12/17) Past Medical History Pulmonary Fibrosis, Migraine and h/o Spontaneous Pneumothorax Past Surgical History VATS, Pleurodesis 08/23/17. Reported Medications Reported Meds & Active Scripts Active Ventolin Hfa 18 GM Inh (Albuterol Sulfate) 90 Mcg/Act Aer 2 Puff INH Q4-6H PRN Oxycodone-Acetaminophen 5-325 mg Tab 1 Tab PO Q6H PRN Metoprolol Tartrate 25 Mg Tab 25 Mg PO Q12HR Spiriva Handihaler (Tiotropium Inh) 18 Mcg Cap 18 Mcg INH DAILY 1 capsule = 18 mcg Active Ordered Medications Current Medications Medications (Trade) Dose Ordered Sig/Susanna Route Start Time Stop Time Status Last Admin (Duoneb Neb) 1 ampule Q4HR NEB PRN NEB 09/12/17 04:30 09/19/17 08:43 (Symbicort 160-4.5 Inh) 2 puff Q12HR INH 09/12/17 09:00 09/22/17 09:06 (NS Flush) 2 ml UNSCH PRN IV FLUSH 09/12/17 04:30 (NS Flush) 2 ml BID IV FLUSH 09/12/17 09:00 09/22/17 09:06 (Zofran Inj) 4 mg Q6H PRN IVP 09/12/17 04:30 (Tylenol) 650 mg Q6H PRN PO 09/12/17 04:30 (Mimi-Colace) 1 tab BID PO 09/12/17 09:00 09/21/17 21:02 (Milk Of Magnesia Liq) 30 ml Q12H PRN PO 09/12/17 04:30 (Senokot) 17.2 mg Q12H PRN PO 09/12/17 04:30 (Dulcolax Supp) 10 mg DAILY PRN RECTAL 09/12/17 04:30 (Lactulose Liq) 30 ml DAILY PRN PO 09/12/17 04:30 (Lidoderm 5% Patch.12 Hr) 1 patch DAILY PRN T-DERMAL 09/12/17 04:45 09/13/17 20:22 (Miralax) 17 gm DAILY PO 09/14/17 09:45 09/14/17 12:33 (Percocet 10-325 Mg) 1 tab Q6H PRN PO 09/19/17 13:45 09/22/17 07:44 (Morphine Inj) 2 mg Q4H PRN IV 09/19/17 15:00 09/21/17 17:31 Family History No h/o DM or CAD Social History History of alcohol. Quit tobacco, November 2016. H/o Cocaine. Physical Exam Vital Signs Vital Signs Date Time Temp Pulse Resp B/P (MAP) Pulse Ox O2 Delivery O2 Flow Rate FiO2 09/22/17 09:00 86 09/22/17 08:00 88 09/22/17 07:30 93 Room Air 09/22/17 07:30 98.1 99 19 119/88 (98) 93 09/22/17 07:00 89 09/22/17 06:00 94 09/22/17 05:54 154 09/22/17 05:00 87 09/22/17 04:00 86 09/22/17 04:00 97.8 77 18 121/84 (96) 94 09/22/17 03:00 86 09/22/17 02:00 88 09/22/17 01:00 69 09/22/17 00:34 98.0 83 20 112/79 (90) 93 09/22/17 00:00 83 09/21/17 23:01 83 09/21/17 22:00 84 09/21/17 21:00 85 09/21/17 20:00 85 09/21/17 20:00 93 Room Air 09/21/17 19:44 97.6 86 20 116/77 (90) 93 09/21/17 19:00 86 09/21/17 18:00 88 09/21/17 17:36 20 09/21/17 17:00 84 09/21/17 16:00 88 09/21/17 15:23 98.2 82 18 114/64 (81) 95 09/21/17 15:00 92 09/21/17 14:07 20 09/21/17 14:00 84 09/21/17 13:00 98.1 88 18 112/68 (83) 96 09/21/17 13:00 88 09/21/17 12:00 81 09/21/17 11:00 80 Physical Exam GENERAL: Well-nourished, well-developed patient. SKIN: Warm and dry. HEAD: Normocephalic. EYES: No scleral icterus. No injection or drainage. NECK: Supple, trachea midline. No JVD or lymphadenopathy. CARDIOVASCULAR: Regular rate and rhythm without murmurs, gallops, or rubs. RESPIRATORY: Breath sounds equal bilaterally. No accessory muscle use. GASTROINTESTINAL: Abdomen soft, non-tender, nondistended. EXTREMITIES: No cyanosis, or edema. NEUROLOGICAL: Awake, alert, and oriented x 3. Non-focal. Laboratory Date/Time Source Procedure Growth Status 09/14/17 22:45 Sputum Expectorated Sputum Gram Stain - Final Complete 09/14/17 22:45 Sputum Expectorated Sputum Sputum Culture - Final HEAVY GROWTH NORMAL RESPIRATORY MAKSIM Complete Imaging Last Impressions Chest X-Ray 09/21/17 0600 Signed Impressions: Service Date/Time: Thursday, September 21, 2017 04:14 - CONCLUSION: Slight increase in size of left base loculated pneumothorax. Improved aeration in the right lung base. Arnoldo Gonzalez MD Chest Tube Insertion 09/13/17 0000 Signed Impressions: Service Date/Time: Wednesday, September 13, 2017 14:01 - CONCLUSION: Uncomplicated chest tube placement as above. Inder Becerra Jr., MD Chest CT 09/12/17 0000 Signed Impressions: Service Date/Time: Tuesday, September 12, 2017 02:15 - CONCLUSION: 1. Prominent pneumothorax in the left. 2. Chronic interstitial densities. 3. 8mm nodule right upper lobe. Followup CT chest in 6 months recommended for stability Kenneth Elizabeth MD Assessment and Plan Problem List: (1) Ventricular tachycardia ICD Codes: I47.2 - Ventricular tachycardia Plan: NO VT but Short run of asymptomatic nonsustained SVT. Likely MAT secondary to lung disease Plan: 1. Avoid electrolytes abnormalities. No new labs order since the 2. Cont telemetry monitoring 3. Start Low dose Lopressor 12.5mg PO BID Thank you for the opportunity to take part in the care of this patient Will be available on a PRN basis for any questions or concerns (2) Recurrent spontaneous pneumothorax ICD Codes: J93.83 - Other pneumothorax Status: Acute (3) Left VATS exploration, bleb resection, pleuradesis (4) HTN (hypertension) ICD Codes: I10 - Essential (primary) hypertension (5) Spontaneous pneumothorax ICD Codes: J93.83 - Other pneumothorax Juan Jarrell MD Sep 22, 2017 10:11
[2017-09-22] MEDS: MORPHINE SULFATE 2 MG/ML INJ IV PRN (11:25)
--- NOTE | 2017-09-22 12:57 | HHI.PR ---
Subjective Remarks C/O some SOB and chest pains. CXR shows min Pneumo on left. Upper chest catheter is not draining.No air leak Objective Vital Signs Date Time Temp Pulse Resp B/P (MAP) Pulse Ox O2 Delivery O2 Flow Rate FiO2 09/22/17 12:23 74 09/22/17 11:12 97.7 81 19 106/74 (85) 93 09/22/17 11:00 83 09/22/17 10:15 91 09/22/17 09:00 86 09/22/17 08:00 88 09/22/17 07:30 93 Room Air 09/22/17 07:30 98.1 99 19 119/88 (98) 93 09/22/17 07:00 89 09/22/17 06:00 94 09/22/17 05:54 154 09/22/17 05:00 87 09/22/17 04:00 86 09/22/17 04:00 97.8 77 18 121/84 (96) 94 09/22/17 03:00 86 09/22/17 02:00 88 09/22/17 01:00 69 09/22/17 00:34 98.0 83 20 112/79 (90) 93 09/22/17 00:00 83 09/21/17 23:01 83 09/21/17 22:00 84 09/21/17 21:00 85 09/21/17 20:00 85 09/21/17 20:00 93 Room Air 09/21/17 19:44 97.6 86 20 116/77 (90) 93 09/21/17 19:00 86 09/21/17 18:00 88 09/21/17 17:36 20 09/21/17 17:00 84 09/21/17 16:00 88 09/21/17 15:23 98.2 82 18 114/64 (81) 95 09/21/17 15:00 92 09/21/17 14:07 20 09/21/17 14:00 84 09/21/17 13:00 98.1 88 18 112/68 (83) 96 09/21/17 13:00 88 I/O 09/21/17 09/21/17 09/21/17 09/22/17 09/22/17 09/22/17 07:00 15:00 23:00 07:00 15:00 23:00 Intake Total 420 ml 650 ml 420 ml Output Total 710 ml 825 ml 650 ml Balance -290 ml -175 ml -230 ml Intake Oral 420 ml 650 ml 420 ml Output Urine Total 700 ml 825 ml 650 ml Chest Tube Drainage Total 10 ml 0 ml 0 ml # Voids 2 # Bowel Movements 0 Objective Remarks GENERAL: This well-built middle-aged man who is alert in no distress. HEENT: Head normocephalic. Pupils are reactive. Tongue moist. Throat was clear. Nasal mucosa injected. NECK: Supple. No bruits or lymphadenopathy or thyromegaly. CHEST: Equal movements. Occ wheeze ++ Breath sounds diminished over the left lung field. There are fine crackles at the lung bases. HEART: Sounds are regular S1-S2. No murmur. ABDOMEN: Abdomen is soft, scaphoid. No organomegaly or tenderness. EXTREMITIES: No lesions. No edema. Normal reflexes. There are no gross motor deficits. RECTAL: Exam deferred. SKIN: No lesions. Assessment and Plan Assessment and Plan IMPRESSION 1. Recurrent left pneumothorax. 2. History of VATS thoracotomy and bleb resection left chest with pleurodesis. 3. Extensive pulmonary fibrosis and bronchiectasis. Plan : 1. Chest Tube to water seal. 2. Clamp Tube . 3.O2 PRN 2 L. 4. nebs qid , duoneb. 5. IS q3h. 6. CXR in Prerna Peng MD Sep 22, 2017 12:57
--- NOTE | 2017-09-22 12:58 | PD.CAR.PN ---
CVT Progress Note Subjective/Hospital Course: 47-year-old male with a PMH of Pulmonary Fibrosis, Migraine and h/o Spontaneous Pneumothorax / blebs who presented to ER w/ complaints of acute onset of left chest wall pain similar to previous episodes of Pneumothorax. States he was leaned forward and heard a "pop", had immediate complaints of left -sided chest wall pain and SOB. Denies injury or trauma. Recent admit 08/19-08/26/17 for similar presentation, found to have Spontaneous Ptx, s/p Left VATS, Bleb Resection and Pleurodesis by Dr. Blunt on 08/23/17. States he quit smoking earlier this year. On arrival, BP 164/103, HR 117, O2 sat 98% on RA, Afebrile. CBC unremarkable. Chemistry essentially unremarkable. CPK 325. INR 1.0. CXR with interstitial lung disease, left lower medial left hemithorax lucency, possible pneumo. CT Chest with prominent pneumothorax on the left. Left pig tail cath inserted in ED #10 [place] 09/12 cxr shows improving left PTX will keep to suction today, re-eval for water seal in am add IS / OOB 09/13 called by Nursing staff regarding results of am cxr results: . interval increase in the left pneumothorax as well as apparent volume loss in the right hemithorax and mediastinal shift to the right. 2. Heart size now appears enlarged. 3. Hazy opacity is noted in the right lung. stat consult placed to IR for second chest tube spoke with Dr Serna, also transfer to [facility] for closer observation, pt remains stable on 1.5li, he does c/o of increased left sided chest pain since last pm "hurts to breathe " , no air leak in pleuravac, pig tail cath remains in place pt did recieve #10French Left subpulmonic chest tube this afternoon 09/14 left lateral PTX improved 11mm left anterior chest tube now to water seal postero lateral chest tube + air leak, to 20cm suction consult pulm, now on nebs , pulm toileting, consult PT had short burst VT, labs [pending 09/15 cardiology consult pending for short run Vtach left anterior chest tube removed ,left lateral chest tube in place with + air leak continue pulm toileting OOB ambulate 09/16 left lateral chest tube to water seal post cxr small left subpulmonic left PTX on room air 09/17/17 No complaints 09/20/17 c/o pain at chest tube site 09/22/17 Doing well, no complaints Objective: Vital Signs Date Time Temp Pulse Resp B/P (MAP) Pulse Ox O2 Delivery O2 Flow Rate FiO2 09/22/17 12:23 74 09/22/17 11:12 97.7 81 19 106/74 (85) 93 09/22/17 11:00 83 09/22/17 10:15 91 09/22/17 09:00 86 09/22/17 08:00 88 09/22/17 07:30 93 Room Air 09/22/17 07:30 98.1 99 19 119/88 (98) 93 09/22/17 07:00 89 09/22/17 06:00 94 09/22/17 05:54 154 09/22/17 05:00 87 09/22/17 04:00 86 09/22/17 04:00 97.8 77 18 121/84 (96) 94 09/22/17 03:00 86 09/22/17 02:00 88 09/22/17 01:00 69 09/22/17 00:34 98.0 83 20 112/79 (90) 93 09/22/17 00:00 83 09/21/17 23:01 83 09/21/17 22:00 84 09/21/17 21:00 85 09/21/17 20:00 85 09/21/17 20:00 93 Room Air 09/21/17 19:44 97.6 86 20 116/77 (90) 93 09/21/17 19:00 86 09/21/17 18:00 88 09/21/17 17:36 20 09/21/17 17:00 84 09/21/17 16:00 88 09/21/17 15:23 98.2 82 18 114/64 (81) 95 09/21/17 15:00 92 09/21/17 14:07 20 09/21/17 14:00 84 09/21/17 13:00 98.1 88 18 112/68 (83) 96 09/21/17 13:00 88 Cardiovascular: RRR Telemetry: NSR Pulmonary: CTA GI/: NABS, NT Incision: dry and intact CT: Tiny air leak on water seal Plan: Recommend changing pleurevac to pneumostat. Patient can go home with pigtail and be followed in clinic weekly with CXR until it can be removed. (1) Ventricular tachycardia Plan: NO VT. \\ Short run of asymptomatic SVT. Likely MAT due to lung disease Plan: 1. Avoid electrolytes abnormalities. No new labs order since the 2. Cont telemetry monitoring 3. Start Low dose Lopressor 12.5mg PO BID Thank you for the opportunity to take part in the care of this patient Will be available on a PRN basis for any questions or concerns (2) Recurrent spontaneous pneumothorax (3) Left VATS exploration, bleb resection, pleuradesis (4) HTN (hypertension) (5) Spontaneous pneumothorax Kati Blunt MD Sep 22, 2017 12:58
--- NOTE | 2017-09-22 13:27 | EKG ---
Date Performed: 09/21/2017 Time Performed: 15:28:58 PTAGE: 47 years EKG: Sinus rhythm . Normal ECG Compared to prior tracing no significant change PREVIOUS TRACING : 09/12/2017 00.54 DOCTOR: Toñito Lua Interpretating Date/Time 09/22/2017 13:25:01
--- NOTE | 2017-09-22 15:01 | HHI.PR ---
Subjective Remarks Patient reports is doing okay. No increase in shortness of breath. Tachycardic with activities. Has been seen by cardiology Objective Vitals Vital Signs Date Time Temp Pulse Resp B/P (MAP) Pulse Ox O2 Delivery O2 Flow Rate FiO2 09/22/17 14:13 77 09/22/17 13:07 83 09/22/17 12:23 74 09/22/17 11:12 97.7 81 19 106/74 (85) 93 09/22/17 11:00 83 09/22/17 10:15 91 09/22/17 09:00 86 09/22/17 08:00 88 09/22/17 07:30 93 Room Air 09/22/17 07:30 98.1 99 19 119/88 (98) 93 09/22/17 07:00 89 09/22/17 06:00 94 09/22/17 05:54 154 09/22/17 05:00 87 09/22/17 04:00 86 09/22/17 04:00 97.8 77 18 121/84 (96) 94 09/22/17 03:00 86 09/22/17 02:00 88 09/22/17 01:00 69 09/22/17 00:34 98.0 83 20 112/79 (90) 93 09/22/17 00:00 83 09/21/17 23:01 83 09/21/17 22:00 84 09/21/17 21:00 85 09/21/17 20:00 85 09/21/17 20:00 93 Room Air 09/21/17 19:44 97.6 86 20 116/77 (90) 93 09/21/17 19:00 86 09/21/17 18:00 88 09/21/17 17:36 20 09/21/17 17:00 84 09/21/17 16:00 88 09/21/17 15:23 98.2 82 18 114/64 (81) 95 I/O 09/21/17 09/21/17 09/21/17 09/22/17 09/22/17 09/22/17 07:00 15:00 23:00 07:00 15:00 23:00 Intake Total 420 ml 650 ml 420 ml Output Total 710 ml 825 ml 650 ml Balance -290 ml -175 ml -230 ml Intake Oral 420 ml 650 ml 420 ml Output Urine Total 700 ml 825 ml 650 ml Chest Tube Drainage Total 10 ml 0 ml 0 ml # Voids 2 # Bowel Movements 0 Objective Remarks GENERAL: No acute distress SKIN: Left chest dressing intact. Left chest tube in place. + air leak CARDIOVASCULAR: Regular rate and rhythm. RESPIRATORY: Clear to auscultation bilaterally. Diminished breath sounds left base. MUSCULOSKELETAL: Extremities without edema. PSYCHIATRIC: Appropriate mood and affect; insight and judgment normal. A/P Problem List: (1) Spontaneous pneumothorax ICD Code: J93.83 - Other pneumothorax (2) Rhabdomyolysis ICD Code: M62.82 - Rhabdomyolysis (3) Hypokalemia ICD Code: E87.6 - Hypokalemia (4) HTN (hypertension) ICD Code: I10 - Essential (primary) hypertension Assessment and Plan 47 year old male admitted with recurrent spontaneous pneumothorax. Patient is status post VATS/Bleb Resection/Pleurodesis by Dr. Blunt on 08/23/14. - Chest tube management for CT surgery and pulmonology. Chest tube to water seal. Repeat chest x-ray with persistent pneumo. CT surgery recommended pneumostat that can be followed outpatient. - Supplemental oxygen as needed. Pain control as needed. ?SVT: Short runs on the monitor. Asymptomatic. Per cardiology, likely MAT from lung issues. Cardiology recommends checking electrolytes and Metoprolol 12.5 mg BID. - Start Metoprolol per Cardiology recs. Cardiology signed off. - Will continue to monitor on tele. DVT Prophylaxis: SCD/Teds Discharge Planning DC when cleared by specialist. Needs Pneumostat per CT surgery recs. Probable DC in AM. Milton Rodriguez MD Sep 22, 2017 15:01
[2017-09-22] MEDS ORDERED: PILL SPLITTER OTHER PRN (15:15)
[2017-09-22 18:07] LABS: BICARBONATE 28.7 MEQ/L (21.0-32.0); CALCIUM 8.9 MG/DL (8.5-10.1); CREATININE 0.65 MG/DL (0.60-1.30)
[2017-09-22] MEDS: METOPROLOL TARTRATE 25 MG TAB PO SCH (21:54)
[2017-09-23] VITALS (19 sets, daily range): BP systolic 91–127; BP diastolic 58–83; PULSE 64–82; RESP 16–20; TEMP 97.5–98.7; O2SAT 94–96
[2017-09-23] MEDS: oxyCODONE/ACETAMINOPHEN 10 MG/325 MG TAB PO PRN ×2 (02:45→08:25)
[2017-09-23] MEDS: DOCUSATE SODIUM 50 MG/SENNA 8.6 MG TAB PO SCH (08:25)
[2017-09-23] MEDS: METOPROLOL TARTRATE 25 MG TAB PO SCH (08:25)
[2017-09-23] MEDS: SODIUM CHLORIDE 0.9% FLUSH 10 ML FLUSH IV FLUSH SCH (08:26)
[2017-09-23] MEDS: BUDESONIDE-FORMOTEROL 160/4.5 MCG INHALER INH SCH (08:26)
[2017-09-23] MEDS: POLYETHYLENE GLYCOL 17 GM PKG PO SCH (08:26)
--- NOTE | 2017-09-23 10:32 | RADRPT ---
EXAM DATE/TIME: 09/23/2017 09:58 [facility] COMPARISON: CHEST SINGLE AP, September 22, 2017, 9:27. INDICATIONS : Follow up for recurrent pneumothorax. MEDICAL HISTORY : Pulmonary fibrosis SURGICAL HISTORY : Chest tube. ENCOUNTER: Subsequent ACUITY: 3 days PAIN SCORE: 6/10 LOCATION: Left chest FINDINGS: A small left basilar chest tube is again noted. There is a tiny left basilar hydropneumothorax. Sta ble chronic increased interstitial disease is noted. The heart is stable. CONCLUSION: 1. Tiny left basilar hydropneumothorax with small chest tube in place. 2. Stable chronic diffuse interstitial changes bilaterally. Francesco Mandujano MD on September 23, 2017 at 10:23 Board Certified Radiologist. This report was verified electronically.
--- NOTE | 2017-09-23 12:44 | PD.CAR.PN ---
CVT Progress Note Subjective/Hospital Course: 47-year-old male with a PMH of Pulmonary Fibrosis, Migraine and h/o Spontaneous Pneumothorax / blebs who presented to ER w/ complaints of acute onset of left chest wall pain similar to previous episodes of Pneumothorax. States he was leaned forward and heard a "pop", had immediate complaints of left -sided chest wall pain and SOB. Denies injury or trauma. Recent admit 08/19-08/26/17 for similar presentation, found to have Spontaneous Ptx, s/p Left VATS, Bleb Resection and Pleurodesis by Dr. Blunt on 08/23/17. States he quit smoking earlier this year. On arrival, BP 164/103, HR 117, O2 sat 98% on RA, Afebrile. CBC unremarkable. Chemistry essentially unremarkable. CPK 325. INR 1.0. CXR with interstitial lung disease, left lower medial left hemithorax lucency, possible pneumo. CT Chest with prominent pneumothorax on the left. Left pig tail cath inserted in ED #10 [place] 09/12 cxr shows improving left PTX will keep to suction today, re-eval for water seal in am add IS / OOB 09/13 called by Nursing staff regarding results of am cxr results: . interval increase in the left pneumothorax as well as apparent volume loss in the right hemithorax and mediastinal shift to the right. 2. Heart size now appears enlarged. 3. Hazy opacity is noted in the right lung. stat consult placed to IR for second chest tube spoke with Dr Serna, also transfer to [facility] for closer observation, pt remains stable on 1.5li, he does c/o of increased left sided chest pain since last pm "hurts to breathe " , no air leak in pleuravac, pig tail cath remains in place pt did recieve #10French Left subpulmonic chest tube this afternoon 09/14 left lateral PTX improved 11mm left anterior chest tube now to water seal postero lateral chest tube + air leak, to 20cm suction consult pulm, now on nebs , pulm toileting, consult PT had short burst VT, labs [pending 09/15 cardiology consult pending for short run Vtach left anterior chest tube removed ,left lateral chest tube in place with + air leak continue pulm toileting OOB ambulate 09/16 left lateral chest tube to water seal post cxr small left subpulmonic left PTX on room air 09/17/17 No complaints 09/20/17 c/o pain at chest tube site 09/22/17 Doing well, no complaints 09/23/17 No air leak today. CXR shows tiny basilar pneumothorax Objective: Vital Signs Date Time Temp Pulse Resp B/P (MAP) Pulse Ox O2 Delivery O2 Flow Rate FiO2 09/23/17 12:00 76 09/23/17 11:54 97.5 73 16 110/70 (83) 94 09/23/17 11:00 68 09/23/17 10:00 71 09/23/17 09:00 74 09/23/17 08:00 64 09/23/17 07:45 94 Room Air 09/23/17 07:45 98.3 76 16 91/58 (69) 94 09/23/17 07:00 74 09/23/17 05:00 98.6 79 20 114/78 (90) 96 09/23/17 05:00 71 09/23/17 04:00 77 09/23/17 03:00 82 09/23/17 02:00 71 09/23/17 01:00 74 09/23/17 00:50 98.7 76 20 113/82 (92) 96 09/23/17 00:00 82 09/22/17 23:00 71 09/22/17 22:00 72 09/22/17 21:00 80 09/22/17 20:00 71 09/22/17 20:00 98.0 71 20 123/81 (95) 96 09/22/17 20:00 96 Room Air 09/22/17 19:00 71 09/22/17 17:09 76 09/22/17 16:07 82 09/22/17 15:36 97.9 75 19 118/81 (93) 94 09/22/17 15:17 76 09/22/17 14:13 77 09/22/17 13:07 83 Result Diagram: 09/22/17 1622 Cardiovascular: RRR Telemetry: NSR Pulmonary: CTA GI/: NABS, NT CT: minimal drainage, no air leak Plan: D/C chest catheter. discharge plan per primary service. Follow-up PCP and Dr. Galan (1) Ventricular tachycardia Plan: NO VT but Short run of asymptomatic nonsustained SVT. Likely MAT secondary to lung disease Plan: 1. Avoid electrolytes abnormalities. No new labs order since the 2. Cont telemetry monitoring 3. Start Low dose Lopressor 12.5mg PO BID Thank you for the opportunity to take part in the care of this patient Will be available on a PRN basis for any questions or concerns (2) Recurrent spontaneous pneumothorax (3) Left VATS exploration, bleb resection, pleuradesis (4) HTN (hypertension) (5) Spontaneous pneumothorax Kati Blunt MD Sep 23, 2017 12:44
[2017-09-23] MEDS: MORPHINE SULFATE 2 MG/ML INJ IV PRN (12:54)
--- NOTE | 2017-09-23 13:09 | PD.CARD.PN ---
Subjective Subjective Remarks no CV complaints still short of SVT overnight Objective Medications Current Medications Medications (Trade) Dose Ordered Sig/Susanna Route Start Time Stop Time Status Last Admin (Duoneb Neb) 1 ampule Q4HR NEB PRN NEB 09/12/17 04:30 09/19/17 08:43 (Symbicort 160-4.5 Inh) 2 puff Q12HR INH 09/12/17 09:00 09/23/17 08:26 (NS Flush) 2 ml UNSCH PRN IV FLUSH 09/12/17 04:30 (NS Flush) 2 ml BID IV FLUSH 09/12/17 09:00 09/23/17 08:26 (Zofran Inj) 4 mg Q6H PRN IVP 09/12/17 04:30 (Tylenol) 650 mg Q6H PRN PO 09/12/17 04:30 (Mimi-Colace) 1 tab BID PO 09/12/17 09:00 09/23/17 08:25 (Milk Of Magnesia Liq) 30 ml Q12H PRN PO 09/12/17 04:30 (Senokot) 17.2 mg Q12H PRN PO 09/12/17 04:30 (Dulcolax Supp) 10 mg DAILY PRN RECTAL 09/12/17 04:30 (Lactulose Liq) 30 ml DAILY PRN PO 09/12/17 04:30 (Lidoderm 5% Patch.12 Hr) 1 patch DAILY PRN T-DERMAL 09/12/17 04:45 09/13/17 20:22 (Miralax) 17 gm DAILY PO 09/14/17 09:45 09/14/17 12:33 (Percocet 10-325 Mg) 1 tab Q6H PRN PO 09/19/17 13:45 09/23/17 08:25 (Morphine Inj) 2 mg Q4H PRN IV 09/19/17 15:00 09/23/17 12:54 (Lopressor) 12.5 mg Q12HR PO 09/22/17 21:00 09/23/17 08:25 (Pill Splitter) 1 ea UNSCH PRN OTHER 09/22/17 15:15 Vital Signs / I&O Vital Signs Date Time Temp Pulse Resp B/P (MAP) Pulse Ox O2 Delivery O2 Flow Rate FiO2 09/23/17 13:00 72 09/23/17 12:00 76 09/23/17 11:54 97.5 73 16 110/70 (83) 94 09/23/17 11:00 68 09/23/17 10:00 71 09/23/17 09:00 74 09/23/17 08:00 64 09/23/17 07:45 94 Room Air 09/23/17 07:45 98.3 76 16 91/58 (69) 94 09/23/17 07:00 74 09/23/17 05:00 98.6 79 20 114/78 (90) 96 09/23/17 05:00 71 09/23/17 04:00 77 09/23/17 03:00 82 09/23/17 02:00 71 09/23/17 01:00 74 09/23/17 00:50 98.7 76 20 113/82 (92) 96 09/23/17 00:00 82 09/22/17 23:00 71 09/22/17 22:00 72 09/22/17 21:00 80 09/22/17 20:00 71 09/22/17 20:00 98.0 71 20 123/81 (95) 96 09/22/17 20:00 96 Room Air 09/22/17 19:00 71 09/22/17 17:09 76 09/22/17 16:07 82 09/22/17 15:36 97.9 75 19 118/81 (93) 94 09/22/17 15:17 76 09/22/17 14:13 77 I/O 09/22/17 09/22/17 09/22/17 09/23/17 09/23/17 09/23/17 07:00 15:00 23:00 07:00 15:00 23:00 Intake Total 420 ml 720 ml 420 ml Output Total 650 ml 460 ml 800 ml Balance -230 ml 260 ml -380 ml Intake Oral 420 ml 720 ml 420 ml Output Urine Total 650 ml 450 ml 800 ml Chest Tube Drainage Total 0 ml 10 ml 0 ml # Voids 1 # Bowel Movements 1 Physical Exam GENERAL: Well-nourished, well-developed patient. SKIN: Warm and dry. HEAD: Normocephalic. EYES: No scleral icterus. No injection or drainage. NECK: Supple, trachea midline. No JVD or lymphadenopathy. CARDIOVASCULAR: Regular rate and rhythm without murmurs, gallops, or rubs. RESPIRATORY: Breath sounds equal bilaterally. No accessory muscle use. GASTROINTESTINAL: Abdomen soft, non-tender, nondistended. EXTREMITIES: No cyanosis, or edema. NEUROLOGICAL: Awake, alert, and oriented x 3. Non-focal. Laboratory Laboratory Tests Test 09/22/17 16:22 Blood Urea Nitrogen 8 MG/DL Creatinine 0.65 MG/DL Random Glucose 88 MG/DL Calcium Level 8.9 MG/DL Sodium Level 139 MEQ/L Potassium Level 3.9 MEQ/L Chloride Level 102 MEQ/L Carbon Dioxide Level 28.7 MEQ/L Anion Gap 8 MEQ/L Estimat Glomerular Filtration Rate 158 ML/MIN Assessment and Plan Problem List: (1) Ventricular tachycardia ICD Codes: I47.2 - Ventricular tachycardia Plan: NO VT but Short run of asymptomatic nonsustained SVT. Likely MAT secondary to lung disease Plan: 1. Cont telemetry monitoring 2. Increase Lopressor 25mg PO BID Thank you for the opportunity to take part in the care of this patient Will be available in a PRN basis for any questions or concerns (2) Recurrent spontaneous pneumothorax ICD Codes: J93.83 - Other pneumothorax Status: Acute (3) Left VATS exploration, bleb resection, pleuradesis (4) HTN (hypertension) ICD Codes: I10 - Essential (primary) hypertension (5) Spontaneous pneumothorax ICD Codes: J93.83 - Other pneumothorax Juan Jarrell MD Sep 23, 2017 13:09
[2017-09-23] MEDS ORDERED: OXYC1TAB36 PO (14:47)
--- NOTE | 2017-09-23 14:47 | HHI.DS ---
Discharge Summary Admission Date Sep 12, 2017 at 04:27 Discharge Date: Sep 23, 2017 Admitting Diagnosis recurrent spontaneous pneumothorax (1) Spontaneous pneumothorax ICD Code: J93.83 - Other pneumothorax (2) Rhabdomyolysis ICD Code: M62.82 - Rhabdomyolysis (3) Hypokalemia ICD Code: E87.6 - Hypokalemia (4) HTN (hypertension) ICD Code: I10 - Essential (primary) hypertension Procedures VATS/Bleb Resection/Pleurodesis by Dr. Blunt on 08/23/14. Brief History - From Admission This is a 47-year-old male with a PMH of Pulmonary Fibrosis, Migraine and h/o Spontaneous Pneumothorax who presented to ER w/ complaints of acute onset of left chest wall pain similar to previous episodes of Pneumothorax. States he was leaned forward and heard a "pop", had immediate complaints of left-sided chest wall pain and SOB. Denies injury or trauma. Recent admit 08/19-08/26/17 for similar presentation, found to have Spontaneous Ptx, s/p Left VATS, Bleb Resection and Pleurodesis by Dr. Blunt on 08/23/17. States he quit smoking earlier this year. On arrival, BP 164/103, HR 117, O2 sat 98% on RA, Afebrile. CBC unremarkable. Chemistry essentially unremarkable. CPK 325. INR 1.0. CXR with interstitial lung disease, left lower medial left hemithorax lucency, possible pneumo. CT Chest with prominent pneumothorax on the left. Dr. Blunt consulted by ER physician, recommended chest tube, S/p Chest Tube placement in ER. CBC/BMP: 09/22/17 1622 Significant Findings Laboratory Tests Test 09/22/17 16:22 Imaging Last Impressions Chest X-Ray 09/23/17 0000 Signed Impressions: Service Date/Time: Saturday, September 23, 2017 09:58 - CONCLUSION: 1. Tiny left basilar hydropneumothorax with small chest tube in place. 2. Stable chronic diffuse interstitial changes bilaterally. Francesco Mandujano MD Chest Tube Insertion 09/13/17 0000 Signed Impressions: Service Date/Time: Wednesday, September 13, 2017 14:01 - CONCLUSION: Uncomplicated chest tube placement as above. Inder Becerra Jr., MD Chest CT 09/12/17 0000 Signed Impressions: Service Date/Time: Tuesday, September 12, 2017 02:15 - CONCLUSION: 1. Prominent pneumothorax in the left. 2. Chronic interstitial densities. 3. 8mm nodule right upper lobe. Followup CT chest in 6 months recommended for stability Kenneth Elizabeth MD PE at Discharge GENERAL: No acute distress SKIN: Left chest dressing intact. CARDIOVASCULAR: Regular rate and rhythm. RESPIRATORY: Clear to auscultation bilaterally. Diminished breath sounds at the bases. MUSCULOSKELETAL: Extremities without edema. PSYCHIATRIC: Appropriate mood and affect; insight and judgment normal. Pt update on day of discharge Feeling ok. Pain is controlled. No shortness of breath. Hospital Course 47 year old male admitted with recurrent spontaneous pneumothorax. Evaluation and treatment course detailed below: Patient is status post VATS/Bleb Resection/Pleurodesis by Dr. Blunt on . - Chest tube management for CT surgery and pulmonology. Patient had two chest catheter. He was wean off. All catheters removed. Very small residual pneumothorax but felt stable to be discharged home and follow up outpatient. - Supplemental oxygen as needed. Pain control as needed. ?SVT: Short runs on the monitor with activities. Asymptomatic. Per cardiology, likely MAT from lung issues. Patient restarted on Metoprolol per Cardiology. Pt Condition on Discharge: Good Discharge Disposition: Discharge Home Discharge Time: <= 30 minutes Discharge Instructions DIET: Follow Instructions for: As Tolerated, No Restrictions Activities you can perform: Regular-No Restrictions Follow up Referrals: Pulmonology with Prerna Santos MD Surgical with Dr. Kati Blunt New Medications: Oxycodone-Acetaminophen (Oxycodone-Acetaminophen) 10-325 mg Tab 1 TAB PO Q6H PRN for Severe pain, #10 TAB Continued Medications: Albuterol 18 GM Inh (Ventolin Hfa 18 GM Inh) 90 Mcg/Act Aer 2 PUFF INH Q4-6H PRN for SHORTNESS OF BREATH, #1 INHALER 1 Refill Metoprolol Tartrate (Metoprolol Tartrate) 25 Mg Tab 25 MG PO Q12HR for Blood Pressure Management, #60 TAB 1 Refill Oxycodone-Acetaminophen (Oxycodone-Acetaminophen) 5-325 mg Tab 1 TAB PO Q6H PRN for PAIN 5-7, #40 TAB 0 Refills Tiotropium Inh (Spiriva Handihaler) 18 Mcg Cap 18 MCG INH DAILY for Asthma Management, #1 CAP 1 Refill 1 capsule = 18 mcg Milton Rodriguez MD Sep 23, 2017 14:47
--- NOTE | 2017-09-23 14:47 | HHI.DCPOC ---
Discharge Care Plan Diagnosis: (1) Recurrent spontaneous pneumothorax (2) Left VATS exploration, bleb resection, pleuradesis (3) HTN (hypertension) (4) Ventricular tachycardia Goals to Promote Your Health * To prevent worsening of your condition and complications * To maintain your health at the optimal level Directions to Meet Your Goals Take your medications as prescribed Follow your dietary instruction Follow activity as directed Keep your appointments as scheduled Take your immunizations and boosters as scheduled If your symptoms worsen call your PCP, if no PCP go to Urgent Care Center or Emergency Room Smoking is Dangerous to Your Health. Avoid second hand smoke Call the 24-hour hour crisis hotline for domestic abuse at Milton Rodriguez MD Sep 23, 2017 14:47
--- NOTE | 2017-09-23 14:47 | HHI.DCPOC ---
Discharge Care Plan Diagnosis: (1) Recurrent spontaneous pneumothorax (2) Left VATS exploration, bleb resection, pleuradesis (3) HTN (hypertension) (4) Ventricular tachycardia Goals to Promote Your Health * To prevent worsening of your condition and complications * To maintain your health at the optimal level Directions to Meet Your Goals Take your medications as prescribed Follow your dietary instruction Follow activity as directed Keep your appointments as scheduled Take your immunizations and boosters as scheduled If your symptoms worsen call your PCP, if no PCP go to Urgent Care Center or Emergency Room Smoking is Dangerous to Your Health. Avoid second hand smoke Call the 24-hour hour crisis hotline for domestic abuse at Milton Rodriguez MD Sep 23, 2017 14:47
--- NOTE | 2017-09-23 14:47 | HHI.DCPOC ---
Discharge Care Plan Diagnosis: (1) Recurrent spontaneous pneumothorax (2) Left VATS exploration, bleb resection, pleuradesis (3) HTN (hypertension) (4) Ventricular tachycardia Goals to Promote Your Health * To prevent worsening of your condition and complications * To maintain your health at the optimal level Directions to Meet Your Goals Take your medications as prescribed Follow your dietary instruction Follow activity as directed Keep your appointments as scheduled Take your immunizations and boosters as scheduled If your symptoms worsen call your PCP, if no PCP go to Urgent Care Center or Emergency Room Smoking is Dangerous to Your Health. Avoid second hand smoke Call the 24-hour hour crisis hotline for domestic abuse at Milton Rodriguez MD Sep 23, 2017 14:47
--- NOTE | 2017-09-23 18:27 | HHI.PR ---
Subjective Remarks C/O some SOB and less chest pains. CXR shows min Pneumo on left. .No air leak. Surgery recommends removal of chest catheter Objective Vital Signs Date Time Temp Pulse Resp B/P (MAP) Pulse Ox O2 Delivery O2 Flow Rate FiO2 09/23/17 15:15 98.1 74 16 127/83 (98) 94 09/23/17 15:00 74 09/23/17 14:00 82 09/23/17 13:00 72 09/23/17 12:00 76 09/23/17 11:54 97.5 73 16 110/70 (83) 94 09/23/17 11:00 68 09/23/17 10:00 71 09/23/17 09:00 74 09/23/17 08:00 64 09/23/17 07:45 94 Room Air 09/23/17 07:45 98.3 76 16 91/58 (69) 94 09/23/17 07:00 74 09/23/17 05:00 98.6 79 20 114/78 (90) 96 09/23/17 05:00 71 09/23/17 04:00 77 09/23/17 03:00 82 09/23/17 02:00 71 09/23/17 01:00 74 09/23/17 00:50 98.7 76 20 113/82 (92) 96 09/23/17 00:00 82 09/22/17 23:00 71 09/22/17 22:00 72 09/22/17 21:00 80 09/22/17 20:00 71 09/22/17 20:00 98.0 71 20 123/81 (95) 96 09/22/17 20:00 96 Room Air 09/22/17 19:00 71 I/O 09/22/17 09/22/17 09/22/17 09/23/17 09/23/17 09/23/17 07:00 15:00 23:00 07:00 15:00 23:00 Intake Total 420 ml 720 ml 420 ml Output Total 650 ml 460 ml 800 ml Balance -230 ml 260 ml -380 ml Intake Oral 420 ml 720 ml 420 ml Output Urine Total 650 ml 450 ml 800 ml Chest Tube Drainage Total 0 ml 10 ml 0 ml # Voids 1 # Bowel Movements 1 Result Diagram: 09/22/17 1847 Objective Remarks GENERAL: This well-built middle-aged man who is alert in no distress. HEENT: Head normocephalic. Pupils are reactive. Tongue moist. Throat was clear. Nasal mucosa clear NECK: Supple. No bruits or lymphadenopathy or thyromegaly. CHEST: Equal movements. Few basal crackles. Breath sounds diminished over the left lung field. There are fine crackles at the lung bases. HEART: Sounds are regular S1-S2. No murmur. ABDOMEN: Abdomen is soft, scaphoid. No organomegaly or tenderness. EXTREMITIES: No lesions. No edema. Normal reflexes. There are no gross motor deficits. RECTAL: Exam deferred. SKIN: No lesions. Assessment and Plan Assessment and Plan IMPRESSION 1. Recurrent left pneumothorax. 2. History of VATS thoracotomy and bleb resection left chest with pleurodesis. 3. Extensive pulmonary fibrosis and bronchiectasis. Plan : 1. D/C Chest Tube per DR Blunt 2. CXR in am 3.O2 PRN 2 L. 4. nebs qid , duoneb. 5. IS q3h. 6. CBC,BMP. Prerna Santos MD Sep 23, 2017 18:27
[2017-09-23] MEDS ORDERED: METOPROLOL TARTRATE 25 MG TAB PO SCH (21:00)
== END 2017-09-23 16:30 | disposition home or self-care (01) | DRG 200 ==
LOC: NEPE 00:44 → NEDA 04:27 → N04A 06:28 → HCPC 09-13 11:57
PROVIDERS: ADMIT Family Medicine; ATTEND Family Medicine
PROC: 0W9B30Z Drainage of Left Pleural Cavity with Drainage Device, Percutaneous Approach (ICD-10-PCS; 2017-09-12)
PROC: 0W9B30Z Drainage of Left Pleural Cavity with Drainage Device, Percutaneous Approach (ICD-10-PCS; principal; 2017-09-13)
DX: J93.83 Other pneumothorax (principal); M62.82 Rhabdomyolysis; J84.10 Pulmonary fibrosis, unspecified; I47.1 Supraventricular tachycardia; E87.6 Hypokalemia; I10 Essential (primary) hypertension; J44.9 Chronic obstructive pulmonary disease, unspecified; Z87.891 Personal history of nicotine dependence
CPT/HCPCS: 32551; 32557; 71010; 71020; 71250; 80048; 80053; 80307; 81001; 82550; 82552; 83735; 84100; 84484; 85025; 85610; 85730; 87070; 87205; 93005; 94150; 94640; 94664; 94667; 94668; 96374; 99152; 99153; J1170; C1729; C1769; J2250; J2270; J3010; J3475

== ENCOUNTER → 2017-10-26 | Outpatient (CLI) | payer SELFPAY ==
[~2017-10-26] MED LIST changes: -DOCU1CAP39 PO; +OXYC1TAB36 PO
--- NOTE | 2017-10-26 14:42 | RADRPT ---
EXAM DATE/TIME: 10/26/2017 13:25 [facility] COMPARISON: CHEST SINGLE AP, September 15, 2017, 4:18. CHEST SINGLE AP, August 19, 2017 , 12:05. CHEST PA & LAT, September 23, 2017, 9:58. INDICATIONS : Evaluate for pneumothorax. MEDICAL HISTORY : Pulmonary fibrosis, History of pnuemothorax. SURGICAL HISTORY : Chest tube. ENCOUNTER: Initial ACUITY: 1 day PAIN SCORE: 0/10 LOCATION: Bilateral chest FINDINGS: The cardiac silhouette is enlarged in transverse diameter. There is severe pulmonary fibrosis unchang ed from the prior study. Large bulla are present in both upper lobes. The cardiac silhouette is enlar ged in transverse diameter. CONCLUSION: 1. Cardiomegaly. 2. Severe pulmonary fibrosis. There is no evidence of pneumothorax. Liang Cervantes MD on October 26, 2017 at 14:38 Board Certified Radiologist. This report was verified electronically.
== END ==
LOC: HRAD 13:14
DX: R05 Cough (principal); R06.00 Dyspnea, unspecified
CPT/HCPCS: 71020

== ENCOUNTER 2017-12-09 13:36 | Emergency (ER) | payer SELFPAY ==
[~2017-12-09] VITALS: Ht 188 cm; Wt 90.0 kg
[2017-12-09 13:37] VITALS: BP 153/97; PULSE 98; RESP 24; TEMP 97.8; O2SAT 95
[2017-12-09] MEDS ORDERED: IOHEXOL 350 MG/ML 10 ML VIAL (for RAD DIAG) IVCONTRAST ONE (13:37)
--- NOTE | 2017-12-09 14:21 | RADRPT ---
EXAM DATE/TIME: 12/09/2017 14:08 [facility] COMPARISON: CT THORAX W/O CONTRAST, September 12, 2017, 2:15. CHEST PA & LAT, October 26, 2017, 13:25. INDICATIONS : Short of breath. MEDICAL HISTORY : pulmonary fibrosis, 3x spontaneous pneumothorax SURGICAL HISTORY : laparscoptic procedure to stop pneumothorax ENCOUNTER: Initial ACUITY: 1 week PAIN SCORE: 5/10 LOCATION: Bilateral chest FINDINGS: There is persistent evidence of severe emphysematous and chronic pulmonary fibrotic change which is e ssentially stable other than the question is the development of air-fluid level in a bullus at the le elie of aortic knob on PA view only. No consolidated infiltrates superimposed. CONCLUSION: Extensive interstitial fibrotic lung disease and emphysematous change. Patient is development of an a ir-fluid level in a bullous in the left upper lobe medially. Dagoberto Rowley MD on December 09, 2017 at 14:15 Board Certified Radiologist. This report was verified electronically.
[2017-12-09] MEDS ORDERED: SYMB80AE INH (14:40)
[2017-12-09 15:03] VITALS: BP 158/111; PULSE 89; RESP 18
--- NOTE | 2017-12-09 15:26 | PD ---
HPI Chief Complaint: Respiratory Symptoms Time Seen by Provider: 14:34 Travel History International Travel<30 days: No Contact w/Intl Traveler<30days: No Traveled to known affect area: No History of Present Illness HPI Patient is a 47-year-old male with history of pulmonary fibrosis recurrent spontaneous pneumothorax presents the emergency department for evaluation of cough. He states is followed by Dr. Hanna and was told if he ever has cough or any concerns that his lungs might be worsening to return to the emergency department for evaluation. Patient states is just a mild cough no fevers but does endorse some chest discomfort when he does cough. No history of heart disease. He is unsure as the cause of his pulmonary fibrosis. Was told by Dr. Hanna it might be genetic but testing is negative. As shortness of breath. States symptoms are mild, left-sided chest, context and associated signs symptoms as above. PFSH Past Medical History Arthritis: No Asthma: No Autoimmune Disease: No Cancer: No Cardiovascular Problems: No COPD: No Cerebrovascular Accident: No Endocrine: No Genitourinary: No Immune Disorder: No Implanted Vascular Access Dvce: No Musculoskeletal: Yes ("SCIATICA") Neurologic: Yes Psychiatric: No Reproductive: No Respiratory: Yes (PULMONARY FIBROSIS) Migraines: Yes ("I'VE SUFFERED FROM MIGRAINES SINCE I WAS ABOUT 4 YEARS OLD") Seizures: No Sleep Apnea: No Past Surgical History Abdominal Surgery: No Cardiac Surgery: No Ear Surgery: No Endocrine Surgery: No Eye Surgery: No Genitourinary Surgery: No Gynecologic Surgery: No Oral Surgery: No Thoracic Surgery: No Other Surgery: Yes (RECONSTRUCTION OF TENDON IN LEFT HAND) Social History Alcohol Use: Yes (OCC) Tobacco Use: No Substance Use: No Allergies-Medications (Allergen,Severity, Reaction): Coded Allergies: No Known Allergies (Unverified , 09/12/17) Reported Meds & Prescriptions Reported Meds & Active Scripts Active Ventolin Hfa 18 GM Inh (Albuterol Sulfate) 90 Mcg/Act Aer 2 Puff INH Q4-6H PRN Metoprolol Tartrate 25 Mg Tab 25 Mg PO Q12HR Spiriva Handihaler (Tiotropium Inh) 18 Mcg Cap 18 Mcg INH DAILY 1 capsule = 18 mcg Reported Symbicort Inh (Budesonide/Formoterol Fumarate) 80-4.5 Mcg/Act Aero 2 Puff INH Q12HR Review of Systems Except as stated in HPI: all other systems reviewed are Neg Physical Exam Narrative GENERAL: Well-developed well-nourished in no obvious respiratory difficulty. SKIN: Focused skin assessment warm/dry. HEAD: Atraumatic. Normocephalic. EYES: Pupils equal and round. No scleral icterus. No injection or drainage. ENT: No nasal bleeding or discharge. Mucous membranes pink and moist. TMs clear bilaterally, oropharynx clear moist. NECK: Trachea midline. No JVD. CARDIOVASCULAR: Regular rate and rhythm. No murmur appreciated. RESPIRATORY: No accessory muscle use. Clear to auscultation. Breath sounds equal bilaterally. Faint fine rales consistent with pulmonary fibrosis, no increased work of breathing. No cough exhibited in the emergency department. GASTROINTESTINAL: Abdomen soft, non-tender, nondistended. Hepatic and splenic margins not palpable. MUSCULOSKELETAL: No obvious deformities. No clubbing. No cyanosis. No edema. NEUROLOGICAL: Awake and alert. No obvious cranial nerve deficits. Motor grossly within normal limits. Normal speech. PSYCHIATRIC: Appropriate mood and affect; insight and judgment normal. Data Data Last Documented VS Vital Signs Date Time Temp Pulse Resp B/P (MAP) Pulse Ox O2 Delivery O2 Flow Rate FiO2 12/09/17 17:49 (127) 12/09/17 17:02 98 Room Air 12/09/17 15:03 89 18 12/09/17 13:37 97.8 Orders Orders Chest, Pa & Lat (12/09/17 ) Basic Metabolic Panel (Bmp) (12/09/17 15:19) Complete Blood Count With Diff (12/09/17 15:19) Magnesium (Mg) (12/09/17 15:19) Prothrombin Time / Inr (Pt) (12/09/17 15:19) Act Partial Throm Time (Ptt) (12/09/17 15:19) Troponin I (12/09/17 15:19) Ecg Monitoring (12/09/17 15:19) Iv Access Insert/Monitor (12/09/17 15:19) Oximetry (12/09/17 15:19) Oxygen Administration (12/09/17 15:19) Sodium Chloride 0.9% Flush (Ns Flush) (12/09/17 15:30) Ct Pulmonary Angiogram (12/09/17 15:19) Iohexol 350 Inj (Omnipaque 350 Inj) (12/09/17 13:37) Acetamin-Hydrocod 325-5 Mg ([place] 5-325 (12/09/17 17:45) Ed Discharge Order (12/09/17 17:34) Electrocardiogram (12/09/17 14:44) Labs Laboratory Tests Test 12/09/17 15:25 White Blood Count 7.8 TH/MM3 Red Blood Count 4.52 MIL/MM3 Hemoglobin 12.6 GM/DL Hematocrit 38.9 % Mean Corpuscular Volume 85.9 FL Mean Corpuscular Hemoglobin 27.9 PG Mean Corpuscular Hemoglobin Concent 32.5 % Red Cell Distribution Width 14.7 % Platelet Count 275 TH/MM3 Mean Platelet Volume 7.9 FL Neutrophils (%) (Auto) 66.3 % Lymphocytes (%) (Auto) 24.2 % Monocytes (%) (Auto) 7.3 % Eosinophils (%) (Auto) 1.8 % Basophils (%) (Auto) 0.4 % Neutrophils # (Auto) 5.2 TH/MM3 Lymphocytes # (Auto) 1.9 TH/MM3 Monocytes # (Auto) 0.6 TH/MM3 Eosinophils # (Auto) 0.1 TH/MM3 Basophils # (Auto) 0.0 TH/MM3 CBC Comment DIFF FINAL Differential Comment Prothrombin Time 11.4 SEC Prothromb Time International Ratio 1.1 RATIO Activated Partial Thromboplast Time 31.7 SEC Blood Urea Nitrogen 8 MG/DL Creatinine 0.84 MG/DL Random Glucose 84 MG/DL Calcium Level 8.7 MG/DL Magnesium Level 2.0 MG/DL Sodium Level 138 MEQ/L Potassium Level 3.9 MEQ/L Chloride Level 102 MEQ/L Carbon Dioxide Level 29.9 MEQ/L Anion Gap 6 MEQ/L Estimat Glomerular Filtration Rate 118 ML/MIN Troponin I LESS THAN 0.02 NG/ML MDM Medical Decision Making Medical Screen Exam Complete: Yes Emergency Medical Condition: Yes Differential Diagnosis Pulmonary fibrosis, recurrent pneumothorax, pneumonia, ACS unlikely. Narrative Course Patient roomed emergency department, chest x-rays have been highly variable in the past, multiple bullae have waxed and waned and he had recurrent pneumothorax per his history. Chest x-ray today does show some concerning findings including intermittent development of an air-fluid level in a bolus in the left upper lobe. Certainly this could represent pneumothorax based on his previous chest x-rays have ordered a contrast CT. Last [address] Angiography 12/09/17 1519 Signed Impressions: Service Date/Time: Saturday, December 09, 2017 16:59 - CONCLUSION: 1. No pulmonary embolus identified. 2. There is end-stage pulmonary fibrosis. There is diffuse honeycombing throughout both lower lobes. Differential considerations would include alpha-1 antitrypsin deficiency versus IPF. Robert Gregory MD Chest X-Ray 12/09/17 0000 Signed Impressions: Service Date/Time: Saturday, December 09, 2017 14:08 - CONCLUSION: Extensive interstitial fibrotic lung disease and emphysematous change. Patient is development of an air-fluid level in a bullous in the left upper lobe medially. Dagoberto Rowley MD The patient was discussed with Dr. Junior Gregory regarding his possibility of alpha- 1 antitrypsin disease and he states that this typically has a predilection for the lower lobes as does the patient's chest x-ray, discussed the large bulla in the left upper lobe and states this is a bulla and certainly is not a pneumothorax. The results were discussed with the patient, recommended that he needs his doctor Dr. Hanna about the possibility for lung transplant in the future. He is hemodynamically stable and saturated well on the emergency department. No indication further workup at this time. An EKG and troponin were negative. He is stable for discharge. Discussed return to ED criteria at any time at his discretion. Diagnosis Primary Impression: SOB (shortness of breath) Additional Impressions: Cough Pulmonary fibrosis Additional Instructions: Discuss with Dr. Santos the following results. Recommend follow up within the next week at least by phone. CT Angiography 12/09/17 1519 Signed Impressions: Service Date/Time: Saturday, December 09, 2017 16:59 - CONCLUSION: 1. No pulmonary embolus identified. 2. There is end-stage pulmonary fibrosis. There is diffuse honeycombing throughout both lower lobes. Differential considerations would include alpha-1 antitrypsin deficiency versus IPF. Robert Gregory MD Chest X-Ray 12/09/17 0000 Signed Impressions: Service Date/Time: Saturday, December 09, 2017 14:08 - CONCLUSION: Extensive interstitial fibrotic lung disease and emphysematous change. Patient is development of an air-fluid level in a bullous in the left upper lobe medially. Dagoberto Rowley MD Disposition: 01 DISCHARGE HOME Condition: Stable Francesco White MD Dec 09, 2017 15:26
[2017-12-09] MEDS ORDERED: SODIUM CHLORIDE 0.9% FLUSH 10 ML FLUSH IVF PRN (15:30)
[2017-12-09 16:02] LABS: AUTOMATED NEUTROPHIL # 5.2 TH/MM3 (1.8-7.7); BASOPHIL % 0.4 % (0.0-2.0); EOSINOPHIL # 0.1 TH/MM3 (0-0.4); EOSINOPHIL % 1.8 % (0.0-4.0); HEMATOCRIT 38.9 % (39.0-51.0); HEMOGLOBIN 12.6 GM/DL (13.0-17.0); LYMPH % 24.2 % (9.0-44.0); LYMPHOCYTE # 1.9 TH/MM3 (1.0-4.8); MEAN CELL VOLUME 85.9 FL (80.0-100.0); MEAN CORPUSCULAR HEMOGLOBIN 27.9 PG (27.0-34.0); MEAN CORPUSCULAR HGB CONC 32.5 % (32.0-36.0); MEAN PLATELET VOLUME 7.9 FL (7.0-11.0); MONO % 7.3 % (0.0-8.0); MONOCYTE # 0.6 TH/MM3 (0-0.9); NEUT % 66.3 % (16.0-70.0); PLATELET COUNT 275 TH/MM3 (150-450); RED BLOOD COUNT 4.52 MIL/MM3 (4.50-5.90); RED CELL DISTRIBUTION WIDTH 14.7 % (11.6-17.2); WHITE BLOOD COUNT 7.8 TH/MM3 (4.0-11.0)
[2017-12-09 16:06] LABS: INTERNATIONAL NORMALIZED RATIO 1.1 RATIO; PROTHROMBIN TIME - PATIENT 11.4 SEC (9.8-11.6)
[2017-12-09 16:17] LABS: BICARBONATE 29.9 MEQ/L (21.0-32.0); BLOOD UREA NITROGEN 8 MG/DL (7-18); CALCIUM 8.7 MG/DL (8.5-10.1); CHLORIDE 102 MEQ/L (98-107); CREATININE 0.84 MG/DL (0.60-1.30); GLOMERULAR FILTRATION RATE 118 ML/MIN (>89); GLUCOSE,RANDOM 84 MG/DL (74-106); SODIUM (NA) 138 MEQ/L (136-145)
[2017-12-09 16:21] LABS: TROPONIN I LESS THAN 0.02 NG/ML (0.02-0.05)
--- NOTE | 2017-12-09 17:13 | RADRPT ---
EXAM DATE/TIME: 12/09/2017 16:59 [facility] COMPARISON: CT THORAX W/O CONTRAST, September 12, 2017, 2:15. INDICATIONS : Short of breath, embolism. IV CONTRAST: 90 cc Omnipaque 350 (iohexol) IV RADIATION DOSE: 18.72 CTDIvol (mGy) MEDICAL HISTORY : Pulmonary fibrosis. SURGICAL HISTORY : None. ENCOUNTER: Initial ACUITY: 1 week PAIN SCALE: 7/10 LOCATION: Left chest TECHNIQUE: Volumetric scanning of the chest was performed using a pulmonary embolism protocol MIP images were re constructed. Using automated exposure control and adjustment of the mA and/or kV according to patien t size, radiation dose was kept as low as reasonably achievable to obtain optimal diagnostic quality images. DICOM format image data is available electronically for review and comparison. Follow-up recommendations for detected pulmonary nodules are based at a minimum on nodule size and pa tient risk factors according to Fleischner Society Guidelines. FINDINGS: The examination is of excellent diagnostic quality. No pulmonary embolus is identified. The heart is mildly enlarged. There is no pericardial effusion. No significant hilar or mediastinal a denopathy is seen. There is mild atherosclerotic plaque in the coronary arteries. Imaging through the pulmonary parenchyma demonstrates end-stage interstitial fibrosis. This is simila r in appearance to previous examination of 09/12/17. There are scattered, large emphysematous blebs a s well. No suspicious mass lesions are identified. The visualized bony structures are grossly intact. CONCLUSION: 1. No pulmonary embolus identified. 2. There is end-stage pulmonary fibrosis. There is diffuse honeycombing throughout both lower lobes. Differential considerations would include alpha-1 antitrypsin deficiency versus IPF. Robert Gregory MD on December 09, 2017 at 17:08 Board Certified Radiologist. This report was verified electronically.
[2017-12-09] MEDS ORDERED: ACETAMINOPHEN/HYDROcodone 325 MG/5 MG TAB PO ONE (17:45)
--- NOTE | 2017-12-10 14:43 | EKG ---
Date Performed: 12/09/2017 Time Performed: 14:44:53 PTAGE: 47 years EKG: Sinus rhythm MINIMAL VOLTAGE CRITERIA FOR LVH, CONSIDER NORMAL VARIANT BORDERLINE ECG Since PREVIOUS TRACING , no significant change noted PREVIOUS TRACIN09/21/2017 [id number] DOCTOR: Johan Hutton Interpretating Date/Time 12/10/2017 14:41:55
== END 2017-12-09 18:45 | disposition home or self-care (01) ==
LOC: NEPE 13:36
DX: R06.02 Shortness of breath (principal); R05 Cough; J84.10 Pulmonary fibrosis, unspecified; R07.89 Other chest pain; R94.31 Abnormal electrocardiogram [ECG] [EKG]; Z87.39 Personal history of other diseases of the musculoskeletal system and connective tissue; Z86.69 Personal history of other diseases of the nervous system and sense organs
CPT/HCPCS: 71046; 71275; 80048; 83735; 84484; 85025; 85610; 85730; 93005; 99285; Q9967

== ENCOUNTER 2017-12-12 00:05 | Inpatient (IN) | payer OTHER ==
[~2017-12-12] VITALS: Ht 188 cm; Wt 87.9 kg
[2017-12-12] VITALS (13 sets, daily range): BP systolic 127–164; BP diastolic 80–102; PULSE 73–132; RESP 16–22; TEMP 97.2–100.7; O2SAT 90–99
[~2017-12-12 00:05] MED LIST changes: -OXYC1TAB36 PO; -OXYC1TAB63 PO; +SYMB80AE INH
[2017-12-12] MEDS ORDERED: SODIUM CHLOR 0.9% 1000 ML INJ 1,000 ML IV ONE (01:00)
[2017-12-12] MEDS ORDERED: ACETAMINOPHEN 325 MG TAB PO ONE ×2 (01:00→01:45)
--- NOTE | 2017-12-12 01:29 | RADRPT ---
EXAM DATE/TIME: 12/12/2017 00:58 [place] COMPARISON: CT PULMONARY ANGIOGRAM, December 09, 2017, 16:59. CHEST PA & LAT, December 09, 2017, 14:08. CHEST SIN GLE AP, September 22, 2017, 9:27. INDICATIONS : Shortness of breath. MEDICAL HISTORY : Pulmonary fibrosis SURGICAL HISTORY : None. ENCOUNTER: Initial ACUITY: 1 day PAIN SCORE: 0/10 LOCATION: Bilateral chest FINDINGS: Diffuse prominent interstitial markings in both lungs and prominent cystic areas in the medial upper lungs are similar to multiple prior exams. A new finding from prior exam is interval development of some partially consolidated areas of infiltrate in the left lower lung and patchy infiltrates in the medial right lower lung. The heart is normal in size. Both hemidiaphragms remain well delineated. CONCLUSION: New areas of infiltrates in the lower lungs superimposed upon chronic interstitial fibrosis. Inder Herrera MD on December 12, 2017 at 1:26 Board Certified Radiologist. This report was verified electronically.
[2017-12-12 01:36] LABS: AUTOMATED NEUTROPHIL # 6.3 TH/MM3 (1.8-7.7); BASOPHIL # 0.1 TH/MM3 (0-0.2); BASOPHIL % 0.7 % (0.0-2.0); EOSINOPHIL # 0.1 TH/MM3 (0-0.4); EOSINOPHIL % 0.8 % (0.0-4.0); HEMATOCRIT 37.5 % (39.0-51.0); HEMOGLOBIN 12.2 GM/DL (13.0-17.0); LYMPH % 10.8 % (9.0-44.0); LYMPHOCYTE # 0.8 TH/MM3 (1.0-4.8); MEAN CELL VOLUME 84.3 FL (80.0-100.0); MEAN CORPUSCULAR HEMOGLOBIN 27.4 PG (27.0-34.0); MEAN CORPUSCULAR HGB CONC 32.6 % (32.0-36.0); MEAN PLATELET VOLUME 8.1 FL (7.0-11.0); MONO % 3.1 % (0.0-8.0); MONOCYTE # 0.2 TH/MM3 (0-0.9); NEUT % 84.6 % (16.0-70.0); PLATELET COUNT 226 TH/MM3 (150-450); RED BLOOD COUNT 4.45 MIL/MM3 (4.50-5.90); RED CELL DISTRIBUTION WIDTH 14.6 % (11.6-17.2); WHITE BLOOD COUNT 7.5 TH/MM3 (4.0-11.0)
[2017-12-12] MEDS ORDERED: ONDANSETRON HCL 4 MG/2 ML VIAL IV ONE (01:45)
[2017-12-12] MEDS ORDERED: CEFEPIME INJ 2,000 MG in SODIUM CHLORIDE 0.9% INJ 100 ML IV ONE (01:45)
[2017-12-12] MEDS ORDERED: AZITHROMYCIN INJ 500 MG in SODIUM CHLOR 0.9% 250 ML INJ 250 ML IV ONE (01:45)
[2017-12-12 01:49] LABS: INTERNATIONAL NORMALIZED RATIO 1.1 RATIO; PROTHROMBIN TIME - PATIENT 10.7 SEC (9.8-11.6)
[2017-12-12 01:59] LABS: ALBUMIN 3.5 GM/DL (3.4-5.0); ALT (GPT) 16 U/L (12-78); AST (GOT) 22 U/L (15-37); BICARBONATE 25.7 MEQ/L (21.0-32.0); BLOOD UREA NITROGEN 8 MG/DL (7-18); C-REACTIVE PROTEIN 2.45 MG/DL (0.00-0.30); CALCIUM 8.4 MG/DL (8.5-10.1); CHLORIDE 106 MEQ/L (98-107); CREATININE 0.97 MG/DL (0.60-1.30); GLOMERULAR FILTRATION RATE 100 ML/MIN (>89); GLUCOSE,RANDOM 104 MG/DL (74-106); LIPASE 136 U/L (73-393); MAGNESIUM 1.7 MG/DL (1.5-2.5); SODIUM (NA) 139 MEQ/L (136-145)
[2017-12-12 02:02] LABS: ALKALINE PHOSPHATASE 67 U/L (45-117); TOTAL BILIRUBIN ADULT 0.3 MG/DL (0.2-1.0); TOTAL PROTEIN 9.1 GM/DL (6.4-8.2); TROPONIN I LESS THAN 0.02 NG/ML (0.02-0.05)
--- NOTE | 2017-12-12 02:02 | PD ---
HPI Chief Complaint: Cold / Flu Symptoms Time Seen by Provider: 00:36 Travel History International Travel<30 days: No Contact w/Intl Traveler<30days: No Traveled to known affect area: No History of Present Illness HPI The patient is a 47 year old male who presents to the [facility] emergency department with a history of cough and congestion that began 1-1/2 weeks ago. The patient reports that his cough has been productive of yellow sputum. He reports that he has had increased shortness of breath over the last few days. He reports that he has had to use his inhaler more frequently. He does report having a history of COPD. The patient also reports having a history of pulmonary fibrosis. The patient reports that he has left-sided chest wall pain related to coughing. He reports that prior to arrival he had nausea and vomiting 3. He denies having any diarrhea. He reports having a subjective fever. He denies having any head congestion or rhinorrhea. On review of systems otherwise, the patient denies having any neck pain, diarrhea, urinary symptoms, or neurologic symptoms. The patient was brought in by ambulance services. The patient received an albuterol nebulizer treatment prior to arrival 1, Solu-Medrol 125 mg IV. [facility] Past Medical History Narrative Medical The patient's past medical history is significant for COPD, pulmonary fibrosis, hypertension, migraine headaches, history of a spontaneous pneumothorax Arthritis: No Asthma: No Autoimmune Disease: No Cancer: No Cardiovascular Problems: No COPD: No Cerebrovascular Accident: No Endocrine: No Genitourinary: No Immune Disorder: No Implanted Vascular Access Dvce: No Musculoskeletal: Yes ("SCIATICA") Neurologic: Yes Psychiatric: No Reproductive: No Respiratory: Yes (copd) Migraines: Yes ("I'VE SUFFERED FROM MIGRAINES SINCE I WAS ABOUT 4 YEARS OLD") Seizures: No Sleep Apnea: No Past Surgical History Narrative Surgical The patient's past surgical history is significant for VATS and pleurodesis in August 2017. Abdominal Surgery: No Cardiac Surgery: No Ear Surgery: No Endocrine Surgery: No Eye Surgery: No Genitourinary Surgery: No Gynecologic Surgery: No Oral Surgery: No Thoracic Surgery: No Other Surgery: Yes (RECONSTRUCTION OF TENDON IN LEFT HAND) Social History Alcohol Use: Yes (OCC) Tobacco Use: No Substance Use: No Allergies-Medications (Allergen,Severity, Reaction): Coded Allergies: No Known Allergies (Verified Allergy, Unknown, 12/12/17) Reported Meds & Prescriptions Reported Meds & Active Scripts Active Ventolin Hfa 18 GM Inh (Albuterol Sulfate) 90 Mcg/Act Aer 2 Puff INH Q4-6H PRN Metoprolol Tartrate 25 Mg Tab 25 Mg PO Q12HR Spiriva Handihaler (Tiotropium Inh) 18 Mcg Cap 18 Mcg INH DAILY 1 capsule = 18 mcg Reported Symbicort Inh (Budesonide/Formoterol Fumarate) 80-4.5 Mcg/Act Aero 2 Puff INH Q12HR Review of Systems Except as stated in HPI: all other systems reviewed are Neg General / Constitutional: Positive: Fever, Chills Eyes: No: Visual changes HENT: Positive: Rhinorrhea, Congestion, No: Headaches Cardiovascular: Positive: Chest Pain or Discomfort (with coughing) Respiratory: Positive: Cough, Shortness of Breath, Wheezing Gastrointestinal: Positive: Nausea, Vomiting, No: Diarrhea, Abdominal Pain Genitourinary: No: Dysuria Musculoskeletal: No: Pain Skin: No Rash Neurologic: No: Weakness, Focal Abnormalities, Coordination Problem, Change in Mentation, Slurred Speech, Sensory Disturbance Psychiatric: No: Depression Endocrine: No: Polydipsia Hematologic/Lymphatic: No: Easy Bruising Physical Exam Narrative General: The patient is a well-developed well-nourished male in no acute distress Head and Neck exam: Head is normocephalic atraumatic. Eyes: EOMI, pupils are equal round and reactive to light. Nose: Midline septum with pink mucous membranes Mouth: Dentition unremarkable. Moist mucus membranes. Posterior oropharynx is not erythematous. No tonsillar hypertrophy. Uvula midline. Airway patent. Neck: No palpable lymphadenopathy. No nuchal rigidity. No thyromegaly. Cardiovascular: Sinus tachycardia in the 1 teens without murmurs, gallops, or rubs. No pulse deficit to the extremities on simultaneous auscultation and palpation of his radial artery. Lungs: Soft expiratory wheezes audible bilateral lung kwong anteriorly. Crackles audible in the left lower lung base. No rhonchi. No accessory muscle use. No conversational dyspnea. No tripoding. No paroxysmal abdominal breathing. Abdomen: Soft, without tenderness to palpation in all 4 quadrants of the abdomen. No guarding, rebound, or rigidity. Normal bowel sounds are audible. No tenderness on palpation of McBurney's point. Extremities: No clubbing, cyanosis, or edema. 2+ pulses in all 4 extremities. No calf tenderness on palpation. Back: No costovertebral angle tenderness to palpation. Neurologic Exam: Grossly nonfocal. Skin Exam: No rash noted. Intact skin that is warm and dry. Data Data Last Documented VS Vital Signs Date Time Temp Pulse Resp B/P (MAP) Pulse Ox O2 Delivery O2 Flow Rate FiO2 12/12/17 01:18 97 5.00 12/12/17 00:23 18 Nasal Cannula 12/12/17 00:15 100.7 127 141/80 (100) Orders Orders Electrocardiogram (12/12/17 00:38) Complete Blood Count With Diff (12/12/17 00:38) Comprehensive Metabolic Panel (12/12/17 00:38) Creatine Kinase (Cpk) (12/12/17 00:38) Ckmb (Isoenzyme) Profile (12/12/17 00:38) Troponin I (12/12/17 00:38) B-Type Natriuretic Peptide (12/12/17 00:38) Prothrombin Time / Inr (Pt) (12/12/17 00:38) Act Partial Throm Time (Ptt) (12/12/17 00:38) Blood Culture (12/12/17 00:38) C-Reactive Protein (Crp) (12/12/17 00:38) Lipase (12/12/17 00:38) Urinalysis - C+S If Indicated (12/12/17 00:38) Magnesium (Mg) (12/12/17 00:38) Influenzae A/B Antigen (12/12/17 00:38) Chest, Single Ap (12/12/17 00:38) Iv Access Insert/Monitor (12/12/17 00:38) Ecg Monitoring (12/12/17 00:38) Oximetry (12/12/17 00:38) Lactic Acid Sepsis Protocol (12/12/17 00:38) Sodium Chlor 0.9% 1000 Ml Inj (Ns 1000 M (12/12/17 01:00) Acetaminophen (Tylenol) (12/12/17 01:00) Ondansetron Inj (Zofran Inj) (12/12/17 01:45) Acetaminophen (Tylenol) (12/12/17 01:45) Cefepime Inj (Maxipime Inj) (12/12/17 01:45) Azithromycin Inj (Zithromax Inj) (12/12/17 01:45) CKMB (12/12/17 00:55) CKMB% (12/12/17 00:55) Albuterol-Ipratropium Neb (Duoneb Neb) (12/12/17 02:15) Sodium Chloride 0.9% Flush (Ns Flush) (12/12/17 03:00) Sodium Chloride 0.9% Flush (Ns Flush) (12/12/17 09:00) Ceftriaxone Inj (Rocephin Inj) (12/12/17 03:00) Acetaminophen (Tylenol) (12/12/17 03:00) Ondansetron Inj (Zofran Inj) (12/12/17 03:00) Albuterol-Ipratropium Neb (Duoneb Neb) (12/12/17 04:00) Albuterol-Ipratropium Neb (Duoneb Neb) (12/12/17 03:00) Admit To Inpatient (12/12/17 ) Vital Signs (Adult) Q4H (12/12/17 02:47) Activity Oob Ad Dinorah (12/12/17 02:47) Notify Parameters (12/12/17 02:47) Intake + Output Q8H (12/12/17 02:47) Diet Regular Basic (12/12/17 Breakfast) Complete Blood Count With Diff (12/13/17 06:00) Basic Metabolic Panel (Bmp) (12/13/17 06:00) Sputum Culture And Gram Stain (12/12/17 02:47) Resp Oxygen Steven C Titrat 1-4 L (12/12/17 ) Consult Pt Eval & Treat (12/12/17 02:47) Scd Bilateral/Knee High GOSIA.BID (12/12/17 02:47) Inpatient Certification (12/12/17 ) Azithromycin Inj (Zithromax Inj) (12/13/17 03:00) Methylprednisolone So Succ Inj (Solumedr (12/12/17 06:00) Admit Order (Ed Use Only) (12/12/17 03:05) Labs Laboratory Tests Test 12/12/17 00:55 12/12/17 01:10 12/12/17 01:25 White Blood Count 7.5 TH/MM3 Red Blood Count 4.45 MIL/MM3 Hemoglobin 12.2 GM/DL Hematocrit 37.5 % Mean Corpuscular Volume 84.3 FL Mean Corpuscular Hemoglobin 27.4 PG Mean Corpuscular Hemoglobin Concent 32.6 % Red Cell Distribution Width 14.6 % Platelet Count 226 TH/MM3 Mean Platelet Volume 8.1 FL Neutrophils (%) (Auto) 84.6 % Lymphocytes (%) (Auto) 10.8 % Monocytes (%) (Auto) 3.1 % Eosinophils (%) (Auto) 0.8 % Basophils (%) (Auto) 0.7 % Neutrophils # (Auto) 6.3 TH/MM3 Lymphocytes # (Auto) 0.8 TH/MM3 Monocytes # (Auto) 0.2 TH/MM3 Eosinophils # (Auto) 0.1 TH/MM3 Basophils # (Auto) 0.1 TH/MM3 CBC Comment DIFF FINAL Differential Comment Prothrombin Time 10.7 SEC Prothromb Time International Ratio 1.1 RATIO Activated Partial Thromboplast Time 28.6 SEC Blood Urea Nitrogen 8 MG/DL Creatinine 0.97 MG/DL Random Glucose 104 MG/DL Total Protein 9.1 GM/DL Albumin 3.5 GM/DL Calcium Level 8.4 MG/DL Magnesium Level 1.7 MG/DL Alkaline Phosphatase 67 U/L Aspartate Amino Transf (AST/SGOT) 22 U/L Alanine Aminotransferase (ALT/SGPT) 16 U/L Total Bilirubin 0.3 MG/DL Sodium Level 139 MEQ/L Potassium Level 3.6 MEQ/L Chloride Level 106 MEQ/L Carbon Dioxide Level 25.7 MEQ/L Anion Gap 7 MEQ/L Estimat Glomerular Filtration Rate 100 ML/MIN Total Creatine Kinase 286 U/L Creatine Kinase MB 2.3 NG/ML Troponin I LESS THAN 0.02 NG/ML C-Reactive Protein 2.45 MG/DL B-Type Natriuretic Peptide 13 PG/ML Lipase 136 U/L Lactic Acid Level 1.4 mmol/L Urine Color YELLOW Urine Turbidity CLEAR Urine pH 5.5 Urine Specific [place] 1.011 Urine Protein NEG mg/dL Urine Glucose (UA) NEG mg/dL Urine Ketones NEG mg/dL Urine Occult Blood NEG Urine Nitrite NEG Urine Bilirubin NEG Urine Urobilinogen LESS THAN 2.0 MG/DL Urine Leukocyte Esterase NEG Urine RBC LESS THAN 1 /hpf Urine WBC LESS THAN 1 /hpf Microscopic Urinalysis Comment CULT NOT INDICATED MDM Medical Decision Making Medical Screen Exam Complete: Yes Emergency Medical Condition: Yes Medical Record Reviewed: Yes Differential Diagnosis COPD exacerbation, versus pneumonia, versus progression of pulmonary fibrosis, versus influenza, versus pneumothorax Narrative Course During the course of the patients emergency department visit, the patients history, examination, and differential diagnosis were reviewed with the patient. The patient was placed on a registered nurse cardiac telemetry with oximetry and frequent blood pressure monitoring. The patient had IV access obtained and blood work sent for analysis. An EKG was done on arrival. The patient's EKG reveals a sinus tachycardia rate of 118, no acute ST segment elevation, T waves are inverted in V1. QRS duration is 93 ms, QTC 374 ms. The patient was initially provided normal saline 1 L IV fluid bolus, Zofran 4 mg IV times one for nausea, DuoNeb 2 for shortness of breath with wheezing. The patient was started on broad-spectrum antibiotics to include cefepime 2 g IV , Zithromax 500 IV. The patients laboratory studies were reviewed and remarkable for a white count 7.5, hemoglobin 12.2, platelets 226 with 84.6 neutrophils, CMP is remarkable for a calcium of 8.4, CPK 286, troponin I less than 0.02, C-reactive protein 2.45, BNP 13, lipase 136, lactic acid 1.4. PT PTT within normal limits. Urinalysis is unremarkable. Radiology studies were reviewed and remarkable for a chest x-ray that shows diffuse prominent interstitial markings in both lungs with prominent cystic areas in the medial upper lungs similar to prior exam, new finding from prior exam is interval development of some partially consolidated areas of infiltrate in the left lower lung and patchy infiltrates in the medial right lower lung. The patient will be admitted to the hospital with bilateral pneumonia. The patients results were discussed with the patient, including the plan of care. I explained that further testing and/ or monitoring is indicated based on the patients history, examination, and/ or laboratory findings. Therefore, I recommended admission for additional evaluation. The patient expressed understanding and was agreeable with this plan. The patient was admitted to the hospital in guarded condition and [facility] Sepsis Criteria SIRS Criteria (2 or more): Heart rate over 90 Physician Communication Physician Communication The patient's case including history, pertinent physical examination findings, and laboratory studies were discussed with Dr. Robertson. It was agreed that the [facility] would [facility] Diagnosis Primary Impression: Bilateral pneumonia Qualified Codes: J18.9 - Pneumonia, unspecified organism Additional Impression: COPD exacerbation Admitting Information Admitting Physician Requests: Admit Shruthi Cho MD Dec 12, 2017 02:02
[2017-12-12 02:07] LABS: BILIRUBIN, URINE NEG (NEG); BLOOD, URINE NEG (NEG); GLUCOSE,URINE NEG (NEG); KETONE, URINE NEG (NEG); NITRITE,URINE NEG (NEG); PH, URINE 5.5 (5.0-8.5); URINE COLOR YELLOW (YELLW/STRAW); URINE LEUKOCYTE ESTERASE NEG (NEG)
[2017-12-12] MEDS: RESP: ALBUTEROL 2.5 MG/IPRATROPIUM 0.5 MG NEB (SCH) INH ×6 (02:10→21:30)
[2017-12-12] MEDS ORDERED: RESP: ALBUTEROL 2.5 MG/IPRATROPIUM 0.5 MG NEB (PRN) INH (03:00)
[2017-12-12] MEDS ORDERED: ACETAMINOPHEN 325 MG TAB PO PRN (03:00)
[2017-12-12] MEDS ORDERED: SODIUM CHLORIDE 0.9% FLUSH 10 ML FLUSH IV FLUSH PRN (03:00)
--- NOTE | 2017-12-12 03:22 | HHI.HP ---
[facility] No Primary Care Physician Admission Diagnosis Pneumonia, COPD exacerbation Diagnoses: Travel History International Travel<30 Days: No Contact w/Intl Traveler <30 Da: No Traveled to Known Affected Are: No History of Present Illness 47-year-old male with a past medical history significant for pulmonary fibrosis , COPD and hypertension presents to the emergency department for evaluation of a cough and fever. The patient reports his cough started approximately 10 days ago and is productive of clear sputum with associated emesis. He endorses fevers and chills that started today. He also states he has had shortness of breath that has been increasing over the past 3-4 days. Vital signs temperature 100.7, pulse 127, respiration 16, BP 141/80, pulse ox 94% on 2 L nc. Review of Systems Positive fever/chills Denies blurry vision, otorrhea, rhinorrhea Denies sore throat, positive cough No chest pain, palpitations Positive shortness of breath and wheezing No abdominal pain Denies constipation/diarrhea/nausea. 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 Hypertension History of recurrent pneumothorax Past Surgical History Multiple chest tubes Bleb stapling Reported Medications Reported Meds & Active Scripts Active Ventolin Hfa 18 GM Inh (Albuterol Sulfate) 90 Mcg/Act Aer 2 Puff INH Q4-6H PRN Metoprolol Tartrate 25 Mg Tab 25 Mg PO Q12HR Spiriva Handihaler (Tiotropium Inh) 18 Mcg Cap 18 Mcg INH DAILY 1 capsule = 18 mcg Reported Symbicort Inh (Budesonide/Formoterol Fumarate) 80-4.5 Mcg/Act Aero 2 Puff INH Q12HR Allergies: Coded Allergies: No Known Allergies (Verified Allergy, Unknown, 12/12/17) Family History Denies family history of coronary artery disease/diabetes mellitus Social History Quit tobacco and alcohol in June. Denies illicit drugs. Physical Exam Vital Signs Vital Signs Date Time Temp Pulse Resp B/P (MAP) Pulse Ox O2 Delivery O2 Flow Rate FiO2 12/12/17 01:18 97 5.00 12/12/17 00:23 18 94 Nasal Cannula 2.00 12/12/17 00:15 100.7 127 16 141/80 (100) 95 Physical Exam GENERAL: Ammy male lying in bed SKIN: No rashes, ecchymoses or lesions. Cool and dry. HEAD: Atraumatic. Normocephalic. No temporal or scalp tenderness. EYES: Pupils equal round and reactive. Extraocular motions intact. No scleral icterus. No injection or drainage. ENT: Nose without bleeding, purulent drainage or septal hematoma. Throat without erythema, tonsillar hypertrophy or exudate. Uvula midline. Airway patent. NECK: Trachea midline. No JVD or lymphadenopathy. Supple, nontender, no meningeal signs. CARDIOVASCULAR: Regular rate and rhythm without murmurs, gallops, or rubs. RESPIRATORY: Bilateral crackles in the bases. Expiratory wheezes throughout. No rhonchi. No accessory muscle use. GASTROINTESTINAL: Abdomen soft, non-tender, nondistended. No hepato-splenomegaly , or palpable masses. No guarding. MUSCULOSKELETAL: Extremities without clubbing, cyanosis, or edema. No joint tenderness, effusion, or edema noted. No calf tenderness. NEUROLOGICAL: Awake and alert. Cranial nerves II through XII intact. Motor and sensory grossly within normal limits. Normal speech. Laboratory Laboratory Tests Test 12/12/17 00:55 12/12/17 01:10 12/12/17 01:25 White Blood Count 7.5 Red Blood Count 4.45 Hemoglobin 12.2 Hematocrit 37.5 Mean Corpuscular Volume 84.3 Mean Corpuscular Hemoglobin 27.4 Mean Corpuscular Hemoglobin Concent 32.6 Red Cell Distribution Width 14.6 Platelet Count 226 Mean Platelet Volume 8.1 Neutrophils (%) (Auto) 84.6 Lymphocytes (%) (Auto) 10.8 Monocytes (%) (Auto) 3.1 Eosinophils (%) (Auto) 0.8 Basophils (%) (Auto) 0.7 Neutrophils # (Auto) 6.3 Lymphocytes # (Auto) 0.8 Monocytes # (Auto) 0.2 Eosinophils # (Auto) 0.1 Basophils # (Auto) 0.1 CBC Comment DIFF FINAL Differential Comment Prothrombin Time 10.7 Prothromb Time International Ratio 1.1 Activated Partial Thromboplast Time 28.6 Blood Urea Nitrogen 8 Creatinine 0.97 Random Glucose 104 Total Protein 9.1 Albumin 3.5 Calcium Level 8.4 Magnesium Level 1.7 Alkaline Phosphatase 67 Aspartate Amino Transf (AST/SGOT) 22 Alanine Aminotransferase (ALT/SGPT) 16 Total Bilirubin 0.3 Sodium Level 139 Potassium Level 3.6 Chloride Level 106 Carbon Dioxide Level 25.7 Anion Gap 7 Estimat Glomerular Filtration Rate 100 Total Creatine Kinase 286 Creatine Kinase MB 2.3 Troponin I LESS THAN 0.02 C-Reactive Protein 2.45 B-Type Natriuretic Peptide 13 Lipase 136 Lactic Acid Level 1.4 Urine Color YELLOW Urine Turbidity CLEAR Urine pH 5.5 Urine Specific [place] 1.011 Urine Protein NEG Urine Glucose (UA) NEG Urine Ketones NEG Urine Occult Blood NEG Urine Nitrite NEG Urine Bilirubin NEG Urine Urobilinogen LESS THAN 2.0 Urine Leukocyte Esterase NEG Urine RBC LESS THAN 1 Urine WBC LESS THAN 1 Microscopic Urinalysis Comment CULT NOT INDICATED Date/Time Source Procedure Growth Status 12/12/17 00:55 Blood Peripheral Aerobic Blood Culture Pending Received 12/12/17 00:55 Blood Peripheral Anaerobic Blood Culture Pending Received 12/12/17 01:10 Nasal Aspirate Influenza Types A,B Antigen (JUAN MANUEL) - Final NEGATIVE FOR FLU A AND B ANTIGEN.... Complete Result Diagram: 12/12/17 0055 12/12/17 0055 Septic Shock Reassessment Septic shock perfusion: reassessment completed Caprini VTE Risk Assessment Caprini VTE Risk Assessment: No/Low Risk (score <= 1) Caprini Risk Assessment Model Point Value = 1 Point Value = 2 Point Value = 3 Point Value = 5 Age 41-60 Minor surgery BMI > 25 kg/m2 Swollen legs Varicose veins or History of unexplained or recurrent spontaneous Oral contraceptives or hormone replacement Sepsis (< 1 month) Serious lung disease, including pneumonia (< 1 month) Abnormal pulmonary function Acute myocardial infarction Congestive heart failure (< 1 month) History of inflammatory bowel disease Medical patient at bed rest Age 61-74 Arthroscopic surgery Major open surgery (> 45 min) Laparoscopic surgery (> 45 min) Malignancy Confined to bed (> 72 hours) Immobilizing plaster cast Central venous access Age >= 75 History of VTE Family history of VTE Factor V Leiden Prothrombin [id number] Lupus anticoagulant Anticardiolipin antibodies Elevated serum homocysteine Heparin-induced thrombocytopenia Other congenital or acquired thrombophilia Stroke (< 1 month) Elective arthroplasty Hip, pelvis, or leg fracture Acute spinal cord injury (< 1 month) Prophylaxis Regimen Total Risk Factor Score Risk Level Prophylaxis Regimen 0-1 Low Early ambulation 2 Moderate Order ONE of the following: *Sequential Compression Device (SCD) *Heparin 5000 units SQ BID 3-4 Higher Order ONE of the following medications: *Heparin 5000 units SQ TID *Enoxaparin/Lovenox 40 mg SQ daily (WT < 150 kg, CrCl > 30 mL/min) *Enoxaparin/Lovenox 30 mg SQ daily (WT < 150 kg, CrCl > 10-29 mL/min) *Enoxaparin/Lovenox 30 mg SQ BID (WT < 150 kg, CrCl > 30 mL/min) AND/OR *Sequential Compression Device (SCD) 5 or more Highest Order ONE of the following medications: *Heparin 5000 units SQ TID (Preferred with Epidurals) *Enoxaparin/Lovenox 40 mg SQ daily (WT < 150 kg, CrCl > 30 mL/min) *Enoxaparin/Lovenox 30 mg SQ daily (WT < 150 kg, CrCl > 10-29 mL/min) *Enoxaparin/Lovenox 30 mg SQ BID (WT < 150 kg, CrCl > 30 mL/min) AND *Sequential Compression Device (SCD) Assessment and Plan Assessment and Plan Assessment/plan: 1. Pneumonia Chest x-ray significant for infiltrates in the bilateral lower lungs, images reviewed by me Last hospitalization 09/12/17 Rocephin/azithromycin Supplemental oxygen as needed DuoNeb's Blood/sputum cultures pending Monitor for signs of sepsis 2. 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 Hypertension Continue home metoprolol FEN Regular diet Electrolytes: monitor and replete prn SCDs Physician Certification 2 Midnight Certification Type: Admission for Inpatient Services Order for Inpatient Services The services are ordered in accordance with Medicare regulations or non- Medicare payer requirements, as applicable. In the case of services not specified as inpatient-only, they are appropriately provided as inpatient services in accordance with the 2-midnight benchmark. Estimated LOS (days): 2 2 days is the estimated time the patient will need to remain in the hospital, assuming treatment plan goals are met and no additional complications. Post-Hospital Plan: Not yet determined Yamila Robertson MD Dec 12, 2017 03:22
[2017-12-12] MEDS: cefTRIAXone INJ 1,000 MG in SODIUM CHLORIDE 0.9% INJ 100 ML IV SCH (03:47)
[2017-12-12] MEDS: oxyCODONE/ACETAMINOPHEN 5 MG/325 MG TAB PO PRN ×5 (03:50→23:26)
[2017-12-12] MEDS: methylPREDNISolone SOD SUCC 40 MG/1 ML VIAL IV PUSH SCH ×4 (05:08→23:27)
[2017-12-12] MEDS: METOPROLOL TARTRATE 25 MG TAB PO SCH ×2 (09:09→21:27)
[2017-12-12] MEDS: BUDESONIDE-FORMOTEROL 80/4.5 MCG INHALER INH SCH ×2 (09:09→21:28)
[2017-12-12] MEDS: TIOTROPIUM BROMIDE 18 MCG INH INH SCH (09:09)
[2017-12-12] MEDS: SODIUM CHLORIDE 0.9% FLUSH 10 ML FLUSH IV FLUSH SCH ×2 (09:10→21:28)
--- NOTE | 2017-12-12 15:43 | HHI.PR ---
Objective Vitals Vital Signs Date Time Temp Pulse Resp B/P (MAP) Pulse Ox O2 Delivery O2 Flow Rate FiO2 12/12/17 12:31 Nasal Cannula 3.00 12/12/17 10:19 20 12/12/17 09:07 93 Nasal Cannula 3.00 12/12/17 08:00 97.4 87 20 133/81 (98) 93 12/12/17 08:00 93 12/12/17 05:00 108 12/12/17 04:38 12/12/17 04:30 Nasal Cannula 3.00 12/12/17 04:30 98.9 112 22 139/87 (104) 94 12/12/17 04:16 99.1 117 19 147/100 (116) 96 Nasal Cannula 12/12/17 03:31 123 12/12/17 03:30 99 Nasal Cannula 2.00 12/12/17 02:30 132 12/12/17 01:18 97 5.00 12/12/17 00:23 18 94 Nasal Cannula 2.00 12/12/17 00:15 100.7 127 16 141/80 (100) 95 I/O 12/11/17 12/11/17 12/11/17 12/12/17 12/12/17 12/12/17 07:00 15:00 23:00 07:00 15:00 23:00 Intake Total 240 ml Output Total 0 ml Balance 240 ml Intake Oral 240 ml Output Urine Total 0 ml Result Diagram: 12/12/17 0055 12/12/17 0055 Nichole Bonilla MD Dec 12, 2017 15:43
--- NOTE | 2017-12-12 20:09 | EKG ---
Date Performed: 12/12/2017 Time Performed: 02:03:01 PTAGE: 47 years EKG: SINUS TACHYCARDIA POSSIBLE LEFT ATRIAL ENLARGEMENT NONSPECIFIC T-WAVE ABNORMALITY Compared to previous tracing, the patient is now tachycardic ABNORMAL ECG NO PREVIOUS TRACING DOCTOR: Bess Bermudez Interpretating Date/Time 12/12/2017 20:09:16
[2017-12-13] VITALS (12 sets, daily range): BP systolic 139–169; BP diastolic 90–108; PULSE 74–93; RESP 16–24; TEMP 97.1–98.1; O2SAT 91–98
[2017-12-13] MEDS: cefTRIAXone INJ 1,000 MG in SODIUM CHLORIDE 0.9% INJ 100 ML IV SCH (03:22)
[2017-12-13] MEDS: AZITHROMYCIN INJ 250 MG in SODIUM CHLOR 0.9% 250 ML INJ 250 ML IV SCH (04:29)
[2017-12-13] MEDS: ONDANSETRON HCL 4 MG/2 ML VIAL IV PUSH PRN (04:54)
[2017-12-13] MEDS: methylPREDNISolone SOD SUCC 40 MG/1 ML VIAL IV PUSH SCH ×3 (04:57→17:34)
[2017-12-13] MEDS: RESP: ALBUTEROL 2.5 MG/IPRATROPIUM 0.5 MG NEB (SCH) INH ×4 (05:09→21:18)
[2017-12-13] MEDS: METOPROLOL TARTRATE 25 MG TAB PO SCH ×2 (08:57→20:52)
[2017-12-13] MEDS: BUDESONIDE-FORMOTEROL 80/4.5 MCG INHALER INH SCH ×2 (08:57→20:54)
[2017-12-13] MEDS: SODIUM CHLORIDE 0.9% FLUSH 10 ML FLUSH IV FLUSH SCH ×2 (08:58→20:55)
[2017-12-13] MEDS: TIOTROPIUM BROMIDE 18 MCG INH INH SCH (08:58)
[2017-12-13 09:35] LABS: AUTOMATED NEUTROPHIL # 13.8 TH/MM3 (1.8-7.7); BASOPHIL % 0.2 % (0.0-2.0); HEMATOCRIT 35.2 % (39.0-51.0); HEMOGLOBIN 11.7 GM/DL (13.0-17.0); LYMPH % 6.1 % (9.0-44.0); LYMPHOCYTE # 0.9 TH/MM3 (1.0-4.8); MEAN CELL VOLUME 85.5 FL (80.0-100.0); MEAN CORPUSCULAR HEMOGLOBIN 28.3 PG (27.0-34.0); MEAN CORPUSCULAR HGB CONC 33.1 % (32.0-36.0); MEAN PLATELET VOLUME 8.3 FL (7.0-11.0); MONO % 2.3 % (0.0-8.0); MONOCYTE # 0.3 TH/MM3 (0-0.9); NEUT % 91.4 % (16.0-70.0); PLATELET COUNT 243 TH/MM3 (150-450); RED BLOOD COUNT 4.12 MIL/MM3 (4.50-5.90); RED CELL DISTRIBUTION WIDTH 14.5 % (11.6-17.2); WHITE BLOOD COUNT 15.1 TH/MM3 (4.0-11.0)
[2017-12-13 09:53] LABS: BICARBONATE 25.3 MEQ/L (21.0-32.0); CALCIUM 8.9 MG/DL (8.5-10.1); CREATININE 0.68 MG/DL (0.60-1.30)
[2017-12-13] MEDS: oxyCODONE/ACETAMINOPHEN 5 MG/325 MG TAB PO PRN (20:53)
--- NOTE | 2017-12-13 21:43 | HHI.PR ---
Subjective Remarks patient in bed on 4 L nasal cannula he reported having fever on Tuesday with dry cough no phlegm he get more short of breath on exertion Objective Vitals Vital Signs Date Time Temp Pulse Resp B/P (MAP) Pulse Ox O2 Delivery O2 Flow Rate FiO2 12/13/17 21:36 98.1 93 16 169/107 (127) 95 12/13/17 16:00 97.1 90 24 142/108 (119) 92 12/13/17 15:56 93 Nasal Cannula 3.00 12/13/17 15:00 77 12/13/17 12:00 97.5 82 20 153/105 (121) 93 12/13/17 08:38 96 Nasal Cannula 3.00 12/13/17 08:00 97.2 81 20 139/92 (108) 96 12/13/17 07:00 82 12/13/17 07:00 Nasal Cannula 2.00 12/13/17 05:11 98 Nasal Cannula 3.00 12/13/17 04:00 97.6 74 20 139/98 (112) 92 12/13/17 04:00 76 12/13/17 00:00 91 12/13/17 00:00 97.3 77 20 139/90 (106) 91 I/O 12/12/17 12/12/17 12/12/17 12/13/17 12/13/17 12/13/17 07:00 15:00 23:00 07:00 15:00 23:00 Intake Total 240 ml 720 ml 650 ml Output Total 0 ml 800 ml 800 ml Balance 240 ml 720 ml -150 ml -800 ml Intake Oral 240 ml 720 ml 650 ml Output Urine Total 0 ml 800 ml 800 ml # Voids 6 # Bowel Movements 1 Result Diagram: 12/13/17 0800 12/13/17 0800 Imaging Last Impressions Chest X-Ray 12/12/17 0038 Signed Impressions: Service Date/Time: Tuesday, December 12, 2017 00:58 - CONCLUSION: New areas of infiltrates in the lower lungs superimposed upon chronic interstitial fibrosis. Inder Herrera MD Objective Remarks GENERAL: Well nourished/well developed patient in no apparent distress CARDIOVASCULAR: Regular rate and rhythm without murmurs, gallops or rubs. RESPIRATORY: Bibasilar crackles. GASTROINTESTINAL: Abdomen soft, non-tender, nondistended. Normal active bowel sounds MUSCULOSKELETAL: Extremities without clubbing, cyanosis, no edema. NEURO: Alert & Oriented x4 to person, place, time, and situation. Moves all ext x4 A/P Assessment and Plan 12/13: WBC increased to 15,000 with neutrophils 91%, continue O2, DuoNeb, Solu- Medrol, IV antibiotic, follow sputum culture, follow CBC, I added Vasotec and clonidine to optimize blood pressure as well as stool softer A/P: 1. Pneumonia Chest x-ray significant for infiltrates in the bilateral lower lungs Last hospitalization 09/12/17 Rocephin/azithromycin Supplemental oxygen as needed DuoNeb's Blood/sputum cultures pending Monitor for signs of sepsis 2. Pulmonary fibrosis/COPD Hoistman is Dr. Santos Continue home medications Consider pulmonary consult if clinical condition deteriorates 3. Hypertension, still not optimized we'll add Vasotec as needed Continue home metoprolol FEN Regular diet Electrolytes: monitor and replete prn SCDs Nichole Bonilla MD Dec 13, 2017 21:43
[2017-12-13] MEDS ORDERED: MAGNESIUM HYDROXIDE SUSP 30 ML CUP PO PRN (22:15)
[2017-12-13] MEDS ORDERED: BISACODYL 10 MG SUPP RECTAL PRN (22:15)
[2017-12-14] VITALS (13 sets, daily range): BP systolic 146–161; BP diastolic 96–114; PULSE 61–93; RESP 14–20; TEMP 97.2–98.1; O2SAT 90–96
[2017-12-14] MEDS: oxyCODONE/ACETAMINOPHEN 5 MG/325 MG TAB PO PRN ×4 (01:00→20:39)
[2017-12-14] MEDS: DOCUSATE SODIUM 50 MG/SENNA 8.6 MG TAB PO PRN ×3 (01:00→22:00)
[2017-12-14] MEDS: cefTRIAXone INJ 1,000 MG in SODIUM CHLORIDE 0.9% INJ 100 ML IV SCH (03:17)
[2017-12-14] MEDS: ONDANSETRON HCL 4 MG/2 ML VIAL IV PUSH PRN (03:53)
[2017-12-14] MEDS: AZITHROMYCIN INJ 250 MG in SODIUM CHLOR 0.9% 250 ML INJ 250 ML IV SCH (03:54)
[2017-12-14] MEDS: RESP: ALBUTEROL 2.5 MG/IPRATROPIUM 0.5 MG NEB (SCH) INH ×4 (04:23→20:27)
[2017-12-14] MEDS: methylPREDNISolone SOD SUCC 40 MG/1 ML VIAL IV PUSH SCH ×5 (05:14→23:48)
[2017-12-14] MEDS: METOPROLOL TARTRATE 25 MG TAB PO SCH ×2 (08:52→20:38)
[2017-12-14] MEDS: TIOTROPIUM BROMIDE 18 MCG INH INH SCH (08:54)
[2017-12-14] MEDS: BUDESONIDE-FORMOTEROL 80/4.5 MCG INHALER INH SCH (08:54)
[2017-12-14] MEDS: SODIUM CHLORIDE 0.9% FLUSH 10 ML FLUSH IV FLUSH SCH ×2 (08:54→20:39)
--- NOTE | 2017-12-14 09:05 | HHI.PR ---
Subjective Remarks This is a pleasant 47 y/o male with Pulmonary fibrosis, COPD, Hypertension, who came to ER with cough and fever, His Primary rx specialist is Doctor Tom, History of recurrent Pneumothorax. on nasal Cannula. Seen by His primary rx specialist saw him with Diagnosis of Basilar Pneumonia with hypoxemia, Pulmonary Fibrosis wit bronchiectasis and chronic bronchitis, recommended Solu-Medrol, Symbicort and following. Objective Vital Signs Date Time Temp Pulse Resp B/P (MAP) Pulse Ox O2 Delivery O2 Flow Rate FiO2 12/14/17 09:02 96 Nasal Cannula 3.00 12/14/17 06:09 98.0 91 16 161/96 (117) 92 12/14/17 04:00 83 12/14/17 01:41 97.9 90 16 158/114 (129) 90 12/14/17 00:00 93 12/13/17 21:36 98.1 93 16 169/107 (127) 95 12/13/17 20:00 Nasal Cannula 4.00 Humidified 12/13/17 20:00 90 12/13/17 16:00 97.1 90 24 142/108 (119) 92 12/13/17 15:56 93 Nasal Cannula 3.00 12/13/17 15:00 77 12/13/17 12:00 97.5 82 20 153/105 (121) 93 I/O 12/13/17 12/13/17 12/13/17 12/14/17 12/14/17 12/14/17 07:00 15:00 23:00 07:00 15:00 23:00 Intake Total 1000 ml 350 ml Output Total 800 ml 800 ml 600 ml Balance 200 ml -800 ml -250 ml Intake Oral 650 ml IV Total 350 ml 350 ml Output Urine Total 800 ml 800 ml 600 ml Result Diagram: 12/13/17 0800 12/13/17 0800 Imaging Last Impressions Chest X-Ray 12/12/17 0038 Signed Impressions: Service Date/Time: Tuesday, December 12, 2017 00:58 - CONCLUSION: New areas of infiltrates in the lower lungs superimposed upon chronic interstitial fibrosis. Inder Herrera MD Procedures None Other Results Laboratory Tests Test 12/12/17 00:55 12/12/17 01:10 12/12/17 01:25 12/13/17 08:00 Prothrombin Time 10.7 SEC Prothromb Time International Ratio 1.1 RATIO Activated Partial Thromboplast Time 28.6 SEC Blood Urea Nitrogen 8 MG/DL 8 MG/DL Creatinine 0.97 MG/DL 0.68 MG/DL Random Glucose 104 MG/DL 118 MG/DL Total Protein 9.1 GM/DL Albumin 3.5 GM/DL Calcium Level 8.4 MG/DL 8.9 MG/DL Magnesium Level 1.7 MG/DL Alkaline Phosphatase 67 U/L Aspartate Amino Transf (AST/SGOT) 22 U/L Alanine Aminotransferase (ALT/SGPT) 16 U/L Total Bilirubin 0.3 MG/DL Sodium Level 139 MEQ/L 138 MEQ/L Potassium Level 3.6 MEQ/L 4.3 MEQ/L Chloride Level 106 MEQ/L 105 MEQ/L Carbon Dioxide Level 25.7 MEQ/L 25.3 MEQ/L Total Creatine Kinase 286 U/L Creatine Kinase MB 2.3 NG/ML Troponin I LESS THAN 0.02 NG/ML C-Reactive Protein 2.45 MG/DL B-Type Natriuretic Peptide 13 PG/ML Lipase 136 U/L Lactic Acid Level 1.4 mmol/L Urine Color YELLOW Urine Turbidity CLEAR Urine pH 5.5 Urine Specific [place] 1.011 Urine Protein NEG mg/dL Urine Glucose (UA) NEG mg/dL Urine Ketones NEG mg/dL Urine Occult Blood NEG Urine Nitrite NEG Urine Bilirubin NEG Urine Urobilinogen LESS THAN 2.0 MG/DL Urine Leukocyte Esterase NEG Urine RBC LESS THAN 1 /hpf Urine WBC LESS THAN 1 /hpf Microscopic Urinalysis Comment CULT NOT INDICATED White Blood Count 15.1 TH/MM3 Red Blood Count 4.12 MIL/MM3 Hemoglobin 11.7 GM/DL Hematocrit 35.2 % Mean Corpuscular Volume 85.5 FL Mean Corpuscular Hemoglobin 28.3 PG Mean Corpuscular Hemoglobin Concent 33.1 % Red Cell Distribution Width 14.5 % Platelet Count 243 TH/MM3 Mean Platelet Volume 8.3 FL Neutrophils (%) (Auto) 91.4 % Lymphocytes (%) (Auto) 6.1 % Monocytes (%) (Auto) 2.3 % Eosinophils (%) (Auto) 0.0 % Basophils (%) (Auto) 0.2 % Neutrophils # (Auto) 13.8 TH/MM3 Lymphocytes # (Auto) 0.9 TH/MM3 Monocytes # (Auto) 0.3 TH/MM3 Eosinophils # (Auto) 0.0 TH/MM3 Basophils # (Auto) 0.0 TH/MM3 CBC Comment DIFF FINAL Differential Comment Anion Gap 8 MEQ/L Estimat Glomerular Filtration Rate 150 ML/MIN Objective Remarks GENERAL: Well nourished/well developed patient in no apparent distress CARDIOVASCULAR: Regular rate and rhythm without murmurs, gallops or rubs. RESPIRATORY: Bibasilar crackles. GASTROINTESTINAL: Abdomen soft, non-tender, nondistended. Normal active bowel sounds MUSCULOSKELETAL: Extremities without clubbing, cyanosis, no edema. NEURO: Alert & Oriented x4 to person, place, time, and situation. Moves all ext x4 Medications and IVs Current Medications Medications (Trade) Dose Ordered Sig/Susanna Route Start Time Stop Time Status Last Admin (NS Flush) 2 ml UNSCH PRN IV FLUSH 12/12/17 03:00 (NS Flush) 2 ml BID IV FLUSH 12/12/17 09:00 12/13/17 20:55 Ceftriaxone Sodium 1000 mg/ Sodium Chloride 100 ml @ 200 mls/hr Q24H IV 12/12/17 03:00 12/14/17 03:17 (Tylenol) 650 mg Q4H PRN PO 12/12/17 03:00 (Zofran Inj) 4 mg Q6H PRN IV PUSH 12/12/17 03:00 12/14/17 03:53 (Duoneb Neb) 1 ampule Q6HR NEB INH 12/12/17 04:00 12/14/17 08:58 (Duoneb Neb) 1 ampule Q4HR NEB PRN INH 12/12/17 03:00 (SoluMEDROL INJ) 40 mg Q6HR IV PUSH 12/12/17 06:00 12/14/17 05:14 (Symbicort 80-4.5 Mcg Inh) 2 puff Q12HR INH 12/12/17 09:00 12/13/17 20:54 (Lopressor) 25 mg Q12HR PO 12/12/17 09:00 12/13/17 20:52 (Spiriva Inh) 18 mcg DAILY INH 12/12/17 09:00 12/13/17 08:58 (Percocet 5-325 Mg) 1 tab Q4H PRN PO 12/12/17 03:45 12/14/17 05:13 (Milk Of Magnesia Liq) 30 ml Q6H PRN PO 12/13/17 22:15 (Dulcolax Supp) 10 mg DAILY PRN RECTAL 12/13/17 22:15 (Mimi-Colace) 2 tab BID PRN PO 12/13/17 22:15 12/14/17 01:00 (Vasotec Inj) 1.25 mg Q6H PRN IV PUSH 12/13/17 22:30 (Catapres) 0.1 mg Q6H PRN PO 12/13/17 22:30 Azithromycin 250 mg/Sodium Chloride 250 ml @ 250 mls/hr DAILY@0300 IV 12/15/17 03:00 A/P Assessment and Plan 12/13: WBC increased to 15,000 with neutrophils 91%, continue O2, DuoNeb, Solu- Medrol, IV antibiotic, follow sputum culture, follow CBC, I added Vasotec and clonidine to optimize blood pressure as well as stool softer A/P: 1. Pneumonia/HCAP Chest x-ray significant for infiltrates in the bilateral lower lungs Last hospitalization 09/12/17 Cefepime and Azithromycin, Solu-Medrol and Symbicort. Supplemental oxygen as needed DuoNeb's Blood/sputum cultures pending 2. Pulmonary fibrosis/COPD Dry Plasterer Helper is Dr. Santos following. Continue home medications Consider pulmonary consult if clinical condition deteriorates 3. Hypertension, still not optimized we'll add Vasotec as needed Continue home metoprolol SCDs Discharge Planning Expected in one to two days. Kingsley Murphy MD Dec 14, 2017 09:05
[2017-12-14] MEDS: ENALAPRILAT 1.25 MG/ML VIAL IV PUSH PRN (10:07)
[2017-12-14] MEDS: CEFEPIME INJ 1,000 MG in SODIUM CHLORIDE 0.9% INJ 100 ML IV SCH ×2 (11:06→18:40)
[2017-12-14] MEDS: guaiFENesin E.R. 600 MG TAB PO SCH ×2 (11:06→20:38)
--- NOTE | 2017-12-14 21:07 | MB ---
cc: SARAH GAYLE MD D'SOUZA, JOHN DATE OF CONSULTATION: 12/14/2017 REASON FOR CONSULTATION: Pulmonary fibrosis and respiratory failure. HISTORY OF PRESENT ILLNESS: This is a 47 year-old -[place] male with a longstanding history of pulmonary fibrosis and a history of chronic obstructive lung disease, who has a history of hypertension and previous history of recurrent pneumothorax on the left side requiring chest tube placement and thoracotomy. The patient was coughing and wheezing and was short of breath over the past 4-5 days and as seen in the emergency room, and stated that he had some chills, fevers and chest pain, and thus a chest x-ray was done which showed increasing basilar infiltrate. The patient was febrile up to 100.7 degrees and he thus was admitted for evaluation. The patient was started on IV cefepime and Zithromax and now on 3 liters of oxygen maintained sats over 90. PAST HISTORY Past history as mentioned above, significant for: 1. Pulmonary fibrosis and COPD. 2. History of hypertension. 3. History of recurrent left pneumothorax with thoracotomy and pleurodesis. 4. Stapling of blebs. 5. He has been treated for pneumonia in the past. HABITS: The patient smoked in the past for about 20 years. He used alcohol for a long time. No illicit drug use. ALLERGIES: None listed. FAMILY HISTORY: Noncontributory. MEDICATIONS: 1. Metoprolol 25 milligrams b.i.d. 2. Spiriva one capsule a day. 3. Symbicort 160 x 4.5, two puffs b.i.d. SYSTEM REVIEW: The patient denies weight loss. He has no headache. He has a cough. He has wheezing. He has chest pain on the left, wheezing and coughing spells. He has epigastric distress and reflux. No urinary symptoms. He has fever or chills. Denied skin lesion. He has anxiety attacks. PHYSICAL EXAMINATION: The patient is a well built, middle-aged -[place] male who is alert, anxious. VITAL SIGNS: Blood pressure 140/80, pulse 100, respiratory rate 24, temperature is 99. HEENT: Normocephalic. Pupils are reactive and equal. Tongue was moist. Throat was clear. Nasal mucosa injected. NECK: No lymphadenopathy. No bruits or thyroid enlargement. CHEST: Increased AP diameter with wheezes bilaterally with prolonged expirations. There are fine crackles at the lung bases, more on the left side. HEART: Heart sounds were regular. S1-S2 with no murmur, no S3 gallop. ABDOMEN: Soft, scaphoid without masses. No organomegaly or tenderness. The bowel sounds are active. EXTREMITIES: No edema. Reflexes are 1+ with no gross motor deficits. Peripheral pulses well felt. NEUROLOGIC: No focal deficits identified. SKIN: Dry and warm. IMPRESSION: 1. Basilar pneumonia with hypoxemia. 2. Pulmonary fibrosis with bronchiectasis and chronic bronchitis. 3. Hypertension. PLAN: The patient will be continued on antibiotic coverage including cefepime and Zithromax intravenously, Solu-Medrol 40 mg IV q.6 h will be added and Symbicort 160 x 4.5 two puffs twice daily to be used, and DuoNeb solution with nebulizer q.i.d. Chest x-ray, PA and lateral to be done, anti___ level to be done. The patient will be maintained on three liters of oxygen to keep sats greater than 90. I will follow the case with you, Dr. Gayle. Thank you for the consultation. MD IRAJ Wolf/REBEKA /7:23 PM /8:48 PM
[2017-12-14] MEDS: BUDESONIDE-FORMOTEROL 160/4.5 MCG INHALER INH SCH (22:11)
[2017-12-15] VITALS (12 sets, daily range): BP systolic 149–173; BP diastolic 90–121; PULSE 54–79; RESP 18–20; TEMP 97.3–98.7; O2SAT 92–96
[2017-12-15] MEDS: CEFEPIME INJ 1,000 MG in SODIUM CHLORIDE 0.9% INJ 100 ML IV SCH ×3 (03:10→17:03)
[2017-12-15] MEDS: AZITHROMYCIN INJ 250 MG in SODIUM CHLOR 0.9% 250 ML INJ 250 ML IV SCH (03:21)
[2017-12-15] MEDS: RESP: ALBUTEROL 2.5 MG/IPRATROPIUM 0.5 MG NEB (SCH) INH ×4 (04:01→20:25)
[2017-12-15] MEDS: methylPREDNISolone SOD SUCC 40 MG/1 ML VIAL IV PUSH SCH ×4 (05:08→21:19)
[2017-12-15] MEDS: cloNIDine HCL 0.1 MG TAB PO PRN ×2 (05:37→21:17)
[2017-12-15] MEDS: BUDESONIDE-FORMOTEROL 160/4.5 MCG INHALER INH SCH ×2 (08:50→21:16)
[2017-12-15] MEDS: TIOTROPIUM BROMIDE 18 MCG INH INH SCH (08:50)
[2017-12-15] MEDS: SODIUM CHLORIDE 0.9% FLUSH 10 ML FLUSH IV FLUSH SCH ×2 (08:51→21:18)
[2017-12-15] MEDS: guaiFENesin E.R. 600 MG TAB PO SCH ×2 (08:51→21:18)
[2017-12-15] MEDS: METOPROLOL TARTRATE 25 MG TAB PO SCH ×2 (08:51→21:17)
[2017-12-15] MEDS: amLODIPine BESYLATE 5 MG TAB PO SCH (09:00)
--- NOTE | 2017-12-15 09:24 | RADRPT ---
EXAM DATE/TIME: 12/15/2017 08:26 [facility] COMPARISON: CT PULMONARY ANGIOGRAM, December 09, 2017, 16:59. CHEST SINGLE AP, December 12, 2017, 0:58. CHEST PA & LAT, December 09, 2017, 14:08. INDICATIONS : Evaluate pneumonia MEDICAL HISTORY : Pulmonary fibrosis SURGICAL HISTORY : None. ENCOUNTER: Subsequent ACUITY: 4 - 6 days PAIN SCORE: 0/10 LOCATION: Bilateral chest FINDINGS: PA and lateral views of the chest. Prominent bulla is again seen in the medial left upper lung zone u nchanged from prior radiograph. Bilateral pulmonary opacities are again seen. Diffuse interstitial op acity. More focal density is again seen in the left upper lung. The findings are very similar to the prior study of 12/09/2017. No evidence of pneumothorax or pleural effusion. Cardiomediastinal silhouet te unchanged. CONCLUSION: Bilateral pulmonary opacities unchanged. Emphysema with large left medial upper lung bulla unchanged. Brandon Koo MD on December 15, 2017 at 9:18 Board Certified Radiologist. This report was verified electronically.
--- NOTE | 2017-12-15 11:38 | HHI.PR ---
Subjective Remarks This is a pleasant 47 y/o male with Pulmonary fibrosis, COPD, Hypertension, who came to ER with cough and fever, His Primary applications specialist is Doctor Tom, History of recurrent Pneumothorax. on nasal Cannula. Seen by His primary applications specialist saw him with Diagnosis of Basilar Pneumonia with hypoxemia, Pulmonary Fibrosis wit bronchiectasis and chronic bronchitis, recommended Solu-Medrol, Symbicort and following. 12/15: Seen in his bedroom, applications specialist following, no nausea, vomit or diarrhea, to continue antibiotics Cefepime wean oxygen to 3 L and arrange home Oxygen, Solu-Medrol to every 12 hours and bronchodilators. Objective Vital Signs Date Time Temp Pulse Resp B/P (MAP) Pulse Ox O2 Delivery O2 Flow Rate FiO2 12/15/17 10:05 Nasal Cannula 4.00 12/15/17 10:02 92 Nasal Cannula 4.00 Humidified 12/15/17 08:45 97.7 76 20 166/109 (128) 92 12/15/17 08:00 62 12/15/17 06:00 97.3 78 18 173/99 (123) 96 12/15/17 04:03 93 Nasal Cannula 4.00 12/15/17 04:00 Nasal Cannula 4.00 Humidified 12/15/17 03:55 54 12/15/17 00:30 97.8 71 18 169/90 (116) 94 12/15/17 00:15 65 12/15/17 00:00 Nasal Cannula 4.00 Humidified 12/14/17 20:36 97.2 80 14 159/106 (123) 92 12/14/17 20:00 82 12/14/17 19:45 Nasal Cannula 4.00 Humidified 12/14/17 18:39 61 12/14/17 16:55 94 Nasal Cannula 4.00 12/14/17 16:01 97.9 78 19 146/98 (114) 94 12/14/17 14:43 94 Nasal Cannula 4.00 Humidified 12/14/17 12:00 97.8 77 19 148/100 (116) 93 I/O 12/14/17 12/14/17 12/14/17 12/15/17 12/15/17 12/15/17 07:00 15:00 23:00 07:00 15:00 23:00 Intake Total 350 ml 100 ml 860 ml 2905 ml Output Total 600 ml 800 ml 1800 ml 650 ml Balance -250 ml 100 ml 60 ml 1105 ml -650 ml Intake Oral 860 ml 2500 ml IV Total 350 ml 100 ml 405 ml Output Urine Total 600 ml 800 ml 1800 ml 650 ml # Bowel Movements 0 0 Result Diagram: 12/13/17 0800 12/13/17 0800 Imaging Last Impressions Chest X-Ray 12/15/17 0600 Signed Impressions: Service Date/Time: November 08:26 - CONCLUSION: Bilateral pulmonary opacities unchanged. Emphysema with large left medial upper lung bulla unchanged. Brandon Koo MD Procedures None Other Results Laboratory Tests Test 12/12/17 00:55 12/12/17 01:10 12/12/17 01:25 12/13/17 08:00 Prothrombin Time 10.7 SEC Prothromb Time International Ratio 1.1 RATIO Activated Partial Thromboplast Time 28.6 SEC Blood Urea Nitrogen 8 MG/DL 8 MG/DL Creatinine 0.97 MG/DL 0.68 MG/DL Random Glucose 104 MG/DL 118 MG/DL Total Protein 9.1 GM/DL Albumin 3.5 GM/DL Calcium Level 8.4 MG/DL 8.9 MG/DL Magnesium Level 1.7 MG/DL Alkaline Phosphatase 67 U/L Aspartate Amino Transf (AST/SGOT) 22 U/L Alanine Aminotransferase (ALT/SGPT) 16 U/L Total Bilirubin 0.3 MG/DL Sodium Level 139 MEQ/L 138 MEQ/L Potassium Level 3.6 MEQ/L 4.3 MEQ/L Chloride Level 106 MEQ/L 105 MEQ/L Carbon Dioxide Level 25.7 MEQ/L 25.3 MEQ/L Total Creatine Kinase 286 U/L Creatine Kinase MB 2.3 NG/ML Troponin I LESS THAN 0.02 NG/ML C-Reactive Protein 2.45 MG/DL B-Type Natriuretic Peptide 13 PG/ML Lipase 136 U/L Lactic Acid Level 1.4 mmol/L Urine Color YELLOW Urine Turbidity CLEAR Urine pH 5.5 Urine Specific [place] 1.011 Urine Protein NEG mg/dL Urine Glucose (UA) NEG mg/dL Urine Ketones NEG mg/dL Urine Occult Blood NEG Urine Nitrite NEG Urine Bilirubin NEG Urine Urobilinogen LESS THAN 2.0 MG/DL Urine Leukocyte Esterase NEG Urine RBC LESS THAN 1 /hpf Urine WBC LESS THAN 1 /hpf Microscopic Urinalysis Comment CULT NOT INDICATED White Blood Count 15.1 TH/MM3 Red Blood Count 4.12 MIL/MM3 Hemoglobin 11.7 GM/DL Hematocrit 35.2 % Mean Corpuscular Volume 85.5 FL Mean Corpuscular Hemoglobin 28.3 PG Mean Corpuscular Hemoglobin Concent 33.1 % Red Cell Distribution Width 14.5 % Platelet Count 243 TH/MM3 Mean Platelet Volume 8.3 FL Neutrophils (%) (Auto) 91.4 % Lymphocytes (%) (Auto) 6.1 % Monocytes (%) (Auto) 2.3 % Eosinophils (%) (Auto) 0.0 % Basophils (%) (Auto) 0.2 % Neutrophils # (Auto) 13.8 TH/MM3 Lymphocytes # (Auto) 0.9 TH/MM3 Monocytes # (Auto) 0.3 TH/MM3 Eosinophils # (Auto) 0.0 TH/MM3 Basophils # (Auto) 0.0 TH/MM3 CBC Comment DIFF FINAL Differential Comment Anion Gap 8 MEQ/L Estimat Glomerular Filtration Rate 150 ML/MIN Test 12/15/17 07:13 Objective Remarks GENERAL: Well nourished/well developed patient in no apparent distress CARDIOVASCULAR: Regular rate and rhythm without murmurs, gallops or rubs. RESPIRATORY: Bibasilar crackles. GASTROINTESTINAL: Abdomen soft, non-tender, nondistended. Normal active bowel sounds MUSCULOSKELETAL: Extremities without clubbing, cyanosis, no edema. NEURO: Alert & Oriented x4 to person, place, time, and situation. Moves all ext x4 Medications and IVs Current Medications Medications (Trade) Dose Ordered Sig/Susanna Route Start Time Stop Time Status Last Admin (NS Flush) 2 ml UNSCH PRN IV FLUSH 12/12/17 03:00 (NS Flush) 2 ml BID IV FLUSH 12/12/17 09:00 12/15/17 08:51 (Tylenol) 650 mg Q4H PRN PO 12/12/17 03:00 (Zofran Inj) 4 mg Q6H PRN IV PUSH 12/12/17 03:00 12/14/17 03:53 (Duoneb Neb) 1 ampule Q6HR NEB INH 12/12/17 04:00 12/15/17 04:01 (Duoneb Neb) 1 ampule Q4HR NEB PRN INH 12/12/17 03:00 (SoluMEDROL INJ) 40 mg Q6HR IV PUSH 12/12/17 06:00 12/15/17 05:08 (Lopressor) 25 mg Q12HR PO 12/12/17 09:00 12/15/17 08:51 (Spiriva Inh) 18 mcg DAILY INH 12/12/17 09:00 12/15/17 08:50 (Percocet 5-325 Mg) 1 tab Q4H PRN PO 12/12/17 03:45 12/14/17 20:39 (Milk Of Magnesia Liq) 30 ml Q6H PRN PO 12/13/17 22:15 (Dulcolax Supp) 10 mg DAILY PRN RECTAL 12/13/17 22:15 (Mimi-Colace) 2 tab BID PRN PO 12/13/17 22:15 12/14/17 22:00 (Vasotec Inj) 1.25 mg Q6H PRN IV PUSH 12/13/17 22:30 12/14/17 10:07 (Catapres) 0.1 mg Q6H PRN PO 12/13/17 22:30 12/15/17 05:37 Azithromycin 250 mg/Sodium Chloride 250 ml @ 250 mls/hr DAILY@0300 IV 12/15/17 03:00 12/15/17 03:21 Cefepime HCl 1000 mg/Sodium Chloride 100 ml @ 200 mls/hr Q8H IV 12/14/17 11:00 12/15/17 11:00 (Mucinex Er) 600 mg BID PO 12/14/17 10:00 12/15/17 08:51 (Symbicort 160-4.5 Mcg Inh) 2 puff Q12HR INH 12/14/17 21:00 12/15/17 08:50 (Norvasc) 5 mg DAILY PO 12/15/17 09:00 12/15/17 09:00 A/P Assessment and Plan 1. Pneumonia/HCAP, as per applications specialist doctor Tom Lepe Pneumonia with hypoxemia, Pulmonary Fibrosis wit bronchiectasis and chronic bronchitis, recommended Solu-Medrol , Symbicort and following. Cefepime. Azithromycin, his last hospitalization 09/12/17, oxygen at home will be scheduled. 2. Pulmonary fibrosis/COPD Baker Operator Automatic is Dr. D'Rapp following. 3. Hypertension Uncontrolled added Amlodipine 5 mg daily. SCDs Discharge Planning Expected in one to two days. Kingsley Murphy MD Dec 15, 2017 11:38
--- NOTE | 2017-12-15 19:09 | HHI.PR ---
Subjective Remarks Feels better today. On O2 3 L No fever or chest pains. Objective Vital Signs Date Time Temp Pulse Resp B/P (MAP) Pulse Ox O2 Delivery O2 Flow Rate FiO2 12/15/17 16:43 97.4 66 18 161/107 (125) 95 12/15/17 16:00 60 12/15/17 12:30 98.7 78 18 149/97 (114) 96 12/15/17 10:05 Nasal Cannula 4.00 12/15/17 10:02 92 Nasal Cannula 4.00 Humidified 12/15/17 08:45 97.7 76 20 166/109 (128) 92 12/15/17 08:00 62 12/15/17 06:00 97.3 78 18 173/99 (123) 96 12/15/17 04:03 93 Nasal Cannula 4.00 12/15/17 04:00 Nasal Cannula 4.00 Humidified 12/15/17 03:55 54 12/15/17 00:30 97.8 71 18 169/90 (116) 94 12/15/17 00:15 65 12/15/17 00:00 Nasal Cannula 4.00 Humidified 12/14/17 20:36 97.2 80 14 159/106 (123) 92 12/14/17 20:00 82 12/14/17 19:45 Nasal Cannula 4.00 Humidified I/O 12/14/17 12/14/17 12/14/17 12/15/17 12/15/17 12/15/17 07:00 15:00 23:00 07:00 15:00 23:00 Intake Total 350 ml 100 ml 860 ml 2905 ml 340 ml 100 ml Output Total 600 ml 800 ml 1800 ml 1850 ml Balance -250 ml 100 ml 60 ml 1105 ml -1510 ml 100 ml Intake Oral 860 ml 2500 ml 240 ml IV Total 350 ml 100 ml 405 ml 100 ml 100 ml Output Urine Total 600 ml 800 ml 1800 ml 1850 ml # Bowel Movements 0 0 0 Result Diagram: 12/13/17 0800 12/13/17 08 Procedures None Other Results The patient is a well built, middle-aged -[place] male who is alert, anxious. VITAL SIGNS: Blood pressure 140/80, pulse 100, respiratory rate 24, temperature is 99. HEENT: Normocephalic. Pupils are reactive and equal. Tongue was moist. Throat was clear. Nasal mucosa injected. NECK: No lymphadenopathy. No bruits or thyroid enlargement. CHEST: Increased AP diameter with wheezes bilaterally with prolonged expirations. There are fine crackles at the lung bases, more on the left side. HEART: Heart sounds were regular. S1-S2 with no murmur, no S3 gallop. ABDOMEN: Soft, scaphoid without masses. No organomegaly or tenderness. The bowel sounds are active. EXTREMITIES: No edema. Reflexes are 1+ with no gross motor deficits. Peripheral pulses well felt. NEUROLOGIC: No focal deficits identified. SKIN: Dry and warm. Assessment and Plan Assessment and Plan IMPRESSION: 1. Basilar pneumonia with hypoxemia. 2. Pulmonary fibrosis with bronchiectasis and chronic bronchitis. 3. Hypertension. Plan : 1. Continue antibiotics, Cefipime, Zithro 2. Wean o2 to 3 L and arrange home O2 3. Solumedrol 40 mg IV BID 4. Duonebs qid. 5. CBC,BMP in am Prrena Santos MD Dec 15, 2017 19:09
[2017-12-15] MEDS: oxyCODONE/ACETAMINOPHEN 5 MG/325 MG TAB PO PRN (21:18)
[2017-12-16] VITALS (11 sets, daily range): BP systolic 119–157; BP diastolic 84–111; PULSE 48–107; RESP 17–18; TEMP 97.3–97.7; O2SAT 89–96
[2017-12-16] MEDS: ENALAPRILAT 1.25 MG/ML VIAL IV PUSH PRN (02:38)
[2017-12-16] MEDS: CEFEPIME INJ 1,000 MG in SODIUM CHLORIDE 0.9% INJ 100 ML IV SCH ×3 (02:38→18:21)
[2017-12-16] MEDS: AZITHROMYCIN INJ 250 MG in SODIUM CHLOR 0.9% 250 ML INJ 250 ML IV SCH (02:45)
[2017-12-16] MEDS: methylPREDNISolone SOD SUCC 40 MG/1 ML VIAL IV PUSH SCH ×3 (04:42→21:20)
[2017-12-16] MEDS: SODIUM CHLORIDE 0.9% FLUSH 10 ML FLUSH IV FLUSH SCH ×2 (08:10→21:19)
[2017-12-16] MEDS: guaiFENesin E.R. 600 MG TAB PO SCH ×2 (08:45→21:19)
[2017-12-16] MEDS: TIOTROPIUM BROMIDE 18 MCG INH INH SCH (08:46)
[2017-12-16] MEDS: BUDESONIDE-FORMOTEROL 160/4.5 MCG INHALER INH SCH ×2 (08:47→21:17)
[2017-12-16] MEDS: METOPROLOL TARTRATE 25 MG TAB PO SCH ×2 (08:48→21:19)
[2017-12-16] MEDS: amLODIPine BESYLATE 5 MG TAB PO SCH (08:50)
[2017-12-16] MEDS ORDERED: amLODIPine BESYLATE 5 MG TAB PO ONE (09:15)
--- NOTE | 2017-12-16 16:22 | HHI.PR ---
Subjective Remarks This is a pleasant 47 y/o male with Pulmonary fibrosis, COPD, Hypertension, who came to ER with cough and fever, His Primary member service specialist is Doctor Tom, History of recurrent Pneumothorax. on nasal Cannula. Seen by His primary member service specialist saw him with Diagnosis of Basilar Pneumonia with hypoxemia, Pulmonary Fibrosis wit bronchiectasis and chronic bronchitis, recommended Solu-Medrol, Symbicort and following. 12/15: Seen in his bedroom, member service specialist following, to continue antibiotics Cefepime wean oxygen to 3 L and arrange home Oxygen, Solu-Medrol to every 12 hours and bronchodilators. 12/16: Stable seen with nurse Marcella, no new issues, no nausea, vomit or diarrhea. Objective Vital Signs Date Time Temp Pulse Resp B/P (MAP) Pulse Ox O2 Delivery O2 Flow Rate FiO2 12/16/17 12:35 97.3 95 17 124/84 (97) 91 12/16/17 12:09 107 12/16/17 11:16 96 Nasal Cannula 4.00 12/16/17 08:01 97.7 56 18 157/108 (124) 96 12/16/17 07:52 48 12/16/17 04:00 57 12/16/17 04:00 97.4 61 18 154/101 (118) 94 12/16/17 00:00 97.7 63 18 156/111 (126) 94 12/16/17 00:00 79 12/15/17 20:28 95 Nasal Cannula 4.00 12/15/17 20:00 79 12/15/17 20:00 97.3 79 18 170/121 (137) 94 12/15/17 19:45 Nasal Cannula 4.00 Humidified 12/15/17 16:43 97.4 66 18 161/107 (125) 95 I/O 12/15/17 12/15/17 12/15/17 12/16/17 12/16/17 12/16/17 07:00 15:00 23:00 07:00 15:00 23:00 Intake Total 2905 ml 340 ml 100 ml 390 ml Output Total 1800 ml 1850 ml 1200 ml Balance 1105 ml -1510 ml 100 ml -810 ml Intake Oral 2500 ml 240 ml IV Total 405 ml 100 ml 100 ml 390 ml Output Urine Total 1800 ml 1850 ml 1200 ml # Bowel Movements 0 0 Result Diagram: 12/13/17 0800 12/13/17 0800 Imaging Last Impressions Chest X-Ray 12/15/17 06 Signed Impressions: Service Date/Time: November 08:26 - CONCLUSION: Bilateral pulmonary opacities unchanged. Emphysema with large left medial upper lung bulla unchanged. Brandon Koo MD Procedures None Other Results Laboratory Tests Test 12/12/17 00:55 12/12/17 01:10 12/12/17 01:25 12/13/17 08:00 Prothrombin Time 10.7 SEC Prothromb Time International Ratio 1.1 RATIO Activated Partial Thromboplast Time 28.6 SEC Blood Urea Nitrogen 8 MG/DL 8 MG/DL Creatinine 0.97 MG/DL 0.68 MG/DL Random Glucose 104 MG/DL 118 MG/DL Total Protein 9.1 GM/DL Albumin 3.5 GM/DL Calcium Level 8.4 MG/DL 8.9 MG/DL Magnesium Level 1.7 MG/DL Alkaline Phosphatase 67 U/L Aspartate Amino Transf (AST/SGOT) 22 U/L Alanine Aminotransferase (ALT/SGPT) 16 U/L Total Bilirubin 0.3 MG/DL Sodium Level 139 MEQ/L 138 MEQ/L Potassium Level 3.6 MEQ/L 4.3 MEQ/L Chloride Level 106 MEQ/L 105 MEQ/L Carbon Dioxide Level 25.7 MEQ/L 25.3 MEQ/L Total Creatine Kinase 286 U/L Creatine Kinase MB 2.3 NG/ML Troponin I LESS THAN 0.02 NG/ML C-Reactive Protein 2.45 MG/DL B-Type Natriuretic Peptide 13 PG/ML Lipase 136 U/L Lactic Acid Level 1.4 mmol/L Urine Color YELLOW Urine Turbidity CLEAR Urine pH 5.5 Urine Specific [place] 1.011 Urine Protein NEG mg/dL Urine Glucose (UA) NEG mg/dL Urine Ketones NEG mg/dL Urine Occult Blood NEG Urine Nitrite NEG Urine Bilirubin NEG Urine Urobilinogen LESS THAN 2.0 MG/DL Urine Leukocyte Esterase NEG Urine RBC LESS THAN 1 /hpf Urine WBC LESS THAN 1 /hpf Microscopic Urinalysis Comment CULT NOT INDICATED White Blood Count 15.1 TH/MM3 Red Blood Count 4.12 MIL/MM3 Hemoglobin 11.7 GM/DL Hematocrit 35.2 % Mean Corpuscular Volume 85.5 FL Mean Corpuscular Hemoglobin 28.3 PG Mean Corpuscular Hemoglobin Concent 33.1 % Red Cell Distribution Width 14.5 % Platelet Count 243 TH/MM3 Mean Platelet Volume 8.3 FL Neutrophils (%) (Auto) 91.4 % Lymphocytes (%) (Auto) 6.1 % Monocytes (%) (Auto) 2.3 % Eosinophils (%) (Auto) 0.0 % Basophils (%) (Auto) 0.2 % Neutrophils # (Auto) 13.8 TH/MM3 Lymphocytes # (Auto) 0.9 TH/MM3 Monocytes # (Auto) 0.3 TH/MM3 Eosinophils # (Auto) 0.0 TH/MM3 Basophils # (Auto) 0.0 TH/MM3 CBC Comment DIFF FINAL Differential Comment Anion Gap 8 MEQ/L Estimat Glomerular Filtration Rate 150 ML/MIN Test 12/15/17 07:13 Objective Remarks GENERAL: Well nourished/well developed patient in no apparent distress CARDIOVASCULAR: Regular rate and rhythm without murmurs, gallops or rubs. RESPIRATORY: Bibasilar crackles. GASTROINTESTINAL: Abdomen soft, non-tender, nondistended. Normal active bowel sounds MUSCULOSKELETAL: Extremities without clubbing, cyanosis, no edema. NEURO: Alert & Oriented x4 to person, place, time, and situation. Moves all ext x4 Medications and IVs Current Medications Medications (Trade) Dose Ordered Sig/Susanna Route Start Time Stop Time Status Last Admin (NS Flush) 2 ml UNSCH PRN IV FLUSH 12/12/17 03:00 12/16/17 04:39 (NS Flush) 2 ml BID IV FLUSH 12/12/17 09:00 12/16/17 08:10 (Tylenol) 650 mg Q4H PRN PO 12/12/17 03:00 (Zofran Inj) 4 mg Q6H PRN IV PUSH 12/12/17 03:00 12/14/17 03:53 (Duoneb Neb) 1 ampule Q4HR NEB PRN INH 12/12/17 03:00 (Lopressor) 25 mg Q12HR PO 12/12/17 09:00 12/16/17 08:48 (Spiriva Inh) 18 mcg DAILY INH 12/12/17 09:00 12/16/17 08:46 (Percocet 5-325 Mg) 1 tab Q4H PRN PO 12/12/17 03:45 12/15/17 21:18 (Milk Of Magnmaría Liq) 30 ml Q6H PRN PO 12/13/17 22:15 (Dulcolax Supp) 10 mg DAILY PRN RECTAL 12/13/17 22:15 (Mimi-Colace) 2 tab BID PRN PO 12/13/17 22:15 12/14/17 22:00 (Vasotec Inj) 1.25 mg Q6H PRN IV PUSH 12/13/17 22:30 12/16/17 02:38 (Catapres) 0.1 mg Q6H PRN PO 12/13/17 22:30 12/15/17 21:17 Azithromycin 250 mg/Sodium Chloride 250 ml @ 250 mls/hr DAILY@0300 IV 12/15/17 03:00 12/16/17 02:45 Cefepime HCl 1000 mg/Sodium Chloride 100 ml @ 200 mls/hr Q8H IV 12/14/17 11:00 12/16/17 10:08 (Mucinex Er) 600 mg BID PO 12/14/17 10:00 12/16/17 08:45 (Symbicort 160-4.5 Mcg Inh) 2 puff Q12HR INH 12/14/17 21:00 12/16/17 08:47 (SoluMEDROL INJ) 40 mg Q8HR IV PUSH 12/15/17 22:00 12/16/17 13:04 (Norvasc) 10 mg DAILY PO 12/17/17 09:00 A/P Assessment and Plan 1. Pneumonia/HCAP, as per member service specialist doctor Tom Lepe Pneumonia with hypoxemia, Pulmonary Fibrosis wit bronchiectasis and chronic bronchitis, recommended Solu-Medrol , Symbicort and following. Cefepime. Azithromycin, his last hospitalization 09/12/17, oxygen at home will be scheduled. 2. Pulmonary fibrosis/COPD, status post spontaneous Pneumothorax, status post VATS/Bleb resection/pleurodesis by Doctor Blunt on 08/23/17, [employer] Teacher is Dr. Santos following. 3. Multifocal Atrial Tachycardia on metoprolol started by Cardiology on last admission will continue same medicine. 4. Hypertension Uncontrolled increased Amlodipine 10 mg. continue metoprolol 25 mg BID. DVT prophylaxis with Lovenox. Discharge Planning Expected in one to two days. Kingsley Murphy MD Dec 16, 2017 16:22
[2017-12-16] MEDS: ENOXAPARIN SODIUM 40 MG/0.4 ML SYRINGE SQ SCH (17:10)
--- NOTE | 2017-12-16 20:30 | HHI.PR ---
Subjective Remarks Improved today. On O2 4 L No fever or chest pains.On IV Steroids . Wants PFT done. Objective Vital Signs Date Time Temp Pulse Resp B/P (MAP) Pulse Ox O2 Delivery O2 Flow Rate FiO2 12/16/17 16:01 97.6 71 18 119/87 (98) 93 12/16/17 16:00 70 12/16/17 12:35 97.3 95 17 124/84 (97) 91 12/16/17 12:09 107 12/16/17 11:16 96 Nasal Cannula 4.00 12/16/17 08:01 97.7 56 18 157/108 (124) 96 12/16/17 07:52 48 12/16/17 04:00 57 12/16/17 04:00 97.4 61 18 154/101 (118) 94 12/16/17 00:00 97.7 63 18 156/111 (126) 94 12/16/17 00:00 79 12/15/17 20:28 95 Nasal Cannula 4.00 I/O 12/15/17 12/15/17 12/15/17 12/16/17 12/16/17 12/16/17 07:00 15:00 23:00 07:00 15:00 23:00 Intake Total 2905 ml 340 ml 100 ml 390 ml 940 ml Output Total 1800 ml 1850 ml 1200 ml 1625 ml Balance 1105 ml -1510 ml 100 ml -810 ml -685 ml Intake Oral 2500 ml 240 ml 840 ml IV Total 405 ml 100 ml 100 ml 390 ml 100 ml Output Urine Total 1800 ml 1850 ml 1200 ml 1625 ml # Bowel Movements 0 0 0 Result Diagram: 12/13/17 0812/13/17 0800 Procedures None Objective Remarks GENERAL: This is a well-nourished, well-developed patient, in no apparent distress. CARDIOVASCULAR: Regular rate and rhythm without murmurs, gallops, or rubs. RESPIRATORY: Diffuse expiratory wheezes, diminish breath sounds bilaterally. Basal crackles ++ GASTROINTESTINAL: Abdomen soft, non-tender,nondistended. Normal active bowel sounds MUSCULOSKELETAL: Extremities with clubbing, and mild edema. NEURO: Alert & Oriented x4 to person, place, time, situation. Moves all ext x4 Assessment and Plan Assessment and Plan IMPRESSION: 1. Basilar pneumonia with hypoxemia. 2. Pulmonary fibrosis with bronchiectasis and chronic bronchitis. 3. Hypertension. Plan : 1. Continue antibiotics, Cefipime, Zithro and switch to PO in am 2. Wean o2 to 3 L and arrange home O2 3. Change Solumedrol to 40 mg IV BID 4. Cont Duonebs qid. 5. PFT ,BMP in am 6. Up in room. 7. Arrange home O2 if sats <88 Prerna Santos MD Dec 16, 2017 20:30
[2017-12-16] MEDS: oxyCODONE/ACETAMINOPHEN 5 MG/325 MG TAB PO PRN (21:20)
[2017-12-17] VITALS (9 sets, daily range): BP systolic 134–164; BP diastolic 80–113; PULSE 69–80; RESP 17–20; TEMP 97.7–98.5; O2SAT 89–97
[2017-12-17] MEDS: CEFEPIME INJ 1,000 MG in SODIUM CHLORIDE 0.9% INJ 100 ML IV SCH ×3 (02:50→18:52)
[2017-12-17] MEDS: AZITHROMYCIN INJ 250 MG in SODIUM CHLOR 0.9% 250 ML INJ 250 ML IV SCH (03:25)
[2017-12-17] MEDS: methylPREDNISolone SOD SUCC 40 MG/1 ML VIAL IV PUSH SCH ×2 (08:12→20:32)
[2017-12-17] MEDS: SODIUM CHLORIDE 0.9% FLUSH 10 ML FLUSH IV FLUSH SCH ×2 (08:12→20:32)
[2017-12-17] MEDS: METOPROLOL TARTRATE 25 MG TAB PO SCH ×2 (08:12→20:30)
[2017-12-17] MEDS: guaiFENesin E.R. 600 MG TAB PO SCH ×2 (08:12→20:30)
[2017-12-17] MEDS: BUDESONIDE-FORMOTEROL 160/4.5 MCG INHALER INH SCH ×2 (08:13→20:32)
[2017-12-17] MEDS: TIOTROPIUM BROMIDE 18 MCG INH INH SCH (08:13)
[2017-12-17] MEDS: cloNIDine HCL 0.1 MG TAB PO PRN (08:22)
[2017-12-17] MEDS ORDERED: amLODIPine BESYLATE 5 MG TAB PO SCH (09:00)
--- NOTE | 2017-12-17 09:20 | HHI.PR ---
Subjective Remarks This is a pleasant 47 y/o male with Pulmonary fibrosis, COPD, Hypertension, who came to ER with cough and fever, His Primary learning operations specialist is Doctor Tom, History of recurrent Pneumothorax. on nasal Cannula. Seen by His primary learning operations specialist saw him with Diagnosis of Basilar Pneumonia with hypoxemia, Pulmonary Fibrosis wit bronchiectasis and chronic bronchitis, recommended Solu-Medrol, Symbicort and following. 12/15: Seen in his bedroom, learning operations specialist following, to continue antibiotics Cefepime wean oxygen to 3 L and arrange home Oxygen, Solu-Medrol to every 12 hours and bronchodilators. 12/16: Stable seen with nurse Marcella, no new issues. 12/17: followed by learning operations specialist recommended to continue antibiotics switch to by mouth today, wean oxygen arrange home Oxygen, PFT and BMP to follow, no nausea, vomit or diarrhea. Objective Vital Signs Date Time Temp Pulse Resp B/P (MAP) Pulse Ox O2 Delivery O2 Flow Rate FiO2 12/17/17 04:00 98.0 69 17 134/97 (109) 89 12/17/17 04:00 90 Room Air 12/17/17 03:43 73 12/17/17 00:00 98.0 80 20 150/106 (121) 95 12/17/17 00:00 1.00 12/16/17 23:40 75 12/16/17 20:15 Nasal Cannula 2.00 Humidified 12/16/17 20:00 84 12/16/17 20:00 90 Nasal Cannula 2.00 12/16/17 20:00 89 12/16/17 16:01 97.6 71 18 119/87 (98) 93 12/16/17 16:00 70 12/16/17 12:35 97.3 95 17 124/84 (97) 91 12/16/17 12:09 107 12/16/17 11:16 96 Nasal Cannula 4.00 I/O 12/16/17 12/16/17 12/16/17 12/17/17 12/17/17 12/17/17 07:00 15:00 23:00 07:00 15:00 23:00 Intake Total 390 ml 940 ml 950 ml Output Total 1200 ml 1625 ml 120 ml Balance -810 ml -685 ml 830 ml Intake Oral 840 ml 950 ml IV Total 390 ml 100 ml Output Urine Total 1200 ml 1625 ml 120 ml # Bowel Movements 0 1 Result Diagram: 12/13/17 0800 12/13/17 0800 Imaging Last Impressions Chest X-Ray 12/15/17 0600 Signed Impressions: Service Date/Time: November 08:26 - CONCLUSION: Bilateral pulmonary opacities unchanged. Emphysema with large left medial upper lung bulla unchanged. Brandon Koo MD Procedures None Other Results Laboratory Tests Test 12/12/17 00:55 12/12/17 01:10 12/12/17 01:25 12/13/17 08:00 Prothrombin Time 10.7 SEC Prothromb Time International Ratio 1.1 RATIO Activated Partial Thromboplast Time 28.6 SEC Blood Urea Nitrogen 8 MG/DL 8 MG/DL Creatinine 0.97 MG/DL 0.68 MG/DL Random Glucose 104 MG/DL 118 MG/DL Total Protein 9.1 GM/DL Albumin 3.5 GM/DL Calcium Level 8.4 MG/DL 8.9 MG/DL Magnesium Level 1.7 MG/DL Alkaline Phosphatase 67 U/L Aspartate Amino Transf (AST/SGOT) 22 U/L Alanine Aminotransferase (ALT/SGPT) 16 U/L Total Bilirubin 0.3 MG/DL Sodium Level 139 MEQ/L 138 MEQ/L Potassium Level 3.6 MEQ/L 4.3 MEQ/L Chloride Level 106 MEQ/L 105 MEQ/L Carbon Dioxide Level 25.7 MEQ/L 25.3 MEQ/L Total Creatine Kinase 286 U/L Creatine Kinase MB 2.3 NG/ML Troponin I LESS THAN 0.02 NG/ML C-Reactive Protein 2.45 MG/DL B-Type Natriuretic Peptide 13 PG/ML Lipase 136 U/L Lactic Acid Level 1.4 mmol/L Urine Color YELLOW Urine Turbidity CLEAR Urine pH 5.5 Urine Specific [place] 1.011 Urine Protein NEG mg/dL Urine Glucose (UA) NEG mg/dL Urine Ketones NEG mg/dL Urine Occult Blood NEG Urine Nitrite NEG Urine Bilirubin NEG Urine Urobilinogen LESS THAN 2.0 MG/DL Urine Leukocyte Esterase NEG Urine RBC LESS THAN 1 /hpf Urine WBC LESS THAN 1 /hpf Microscopic Urinalysis Comment CULT NOT INDICATED White Blood Count 15.1 TH/MM3 Red Blood Count 4.12 MIL/MM3 Hemoglobin 11.7 GM/DL Hematocrit 35.2 % Mean Corpuscular Volume 85.5 FL Mean Corpuscular Hemoglobin 28.3 PG Mean Corpuscular Hemoglobin Concent 33.1 % Red Cell Distribution Width 14.5 % Platelet Count 243 TH/MM3 Mean Platelet Volume 8.3 FL Neutrophils (%) (Auto) 91.4 % Lymphocytes (%) (Auto) 6.1 % Monocytes (%) (Auto) 2.3 % Eosinophils (%) (Auto) 0.0 % Basophils (%) (Auto) 0.2 % Neutrophils # (Auto) 13.8 TH/MM3 Lymphocytes # (Auto) 0.9 TH/MM3 Monocytes # (Auto) 0.3 TH/MM3 Eosinophils # (Auto) 0.0 TH/MM3 Basophils # (Auto) 0.0 TH/MM3 CBC Comment DIFF FINAL Differential Comment Anion Gap 8 MEQ/L Estimat Glomerular Filtration Rate 150 ML/MIN Test 12/15/17 07:13 Objective Remarks GENERAL: Well nourished/well developed patient in no apparent distress CARDIOVASCULAR: Regular rate and rhythm without murmurs, gallops or rubs. RESPIRATORY: Bibasilar crackles. GASTROINTESTINAL: Abdomen soft, non-tender, nondistended. Normal active bowel sounds MUSCULOSKELETAL: Extremities without clubbing, cyanosis, no edema. NEURO: Alert & Oriented x4 to person, place, time, and situation. Moves all ext x4 Medications and IVs Current Medications Medications (Trade) Dose Ordered Sig/Susanna Route Start Time Stop Time Status Last Admin (NS Flush) 2 ml UNSCH PRN IV FLUSH 12/12/17 03:00 12/16/17 04:39 (NS Flush) 2 ml BID IV FLUSH 12/12/17 09:00 12/17/17 08:12 (Tylenol) 650 mg Q4H PRN PO 12/12/17 03:00 (Zofran Inj) 4 mg Q6H PRN IV PUSH 12/12/17 03:00 12/14/17 03:53 (Duoneb Neb) 1 ampule Q4HR NEB PRN INH 12/12/17 03:00 (Lopressor) 25 mg Q12HR PO 12/12/17 09:00 12/17/17 08:12 (Spiriva Inh) 18 mcg DAILY INH 12/12/17 09:00 12/17/17 08:13 (Percocet 5-325 Mg) 1 tab Q4H PRN PO 12/12/17 03:45 12/16/17 21:20 (Milk Of Magnesia Liq) 30 ml Q6H PRN PO 12/13/17 22:15 12/16/17 21:27 (Dulcolax Supp) 10 mg DAILY PRN RECTAL 12/13/17 22:15 (Mimi-Colace) 2 tab BID PRN PO 12/13/17 22:15 12/14/17 22:00 (Vasotec Inj) 1.25 mg Q6H PRN IV PUSH 12/13/17 22:30 12/16/17 02:38 (Catapres) 0.1 mg Q6H PRN PO 12/13/17 22:30 12/17/17 08:22 Azithromycin 250 mg/Sodium Chloride 250 ml @ 250 mls/hr DAILY@0300 IV 12/15/17 03:00 12/17/17 03:25 Cefepime HCl 1000 mg/Sodium Chloride 100 ml @ 200 mls/hr Q8H IV 12/14/17 11:00 12/17/17 02:50 (Mucinex Er) 600 mg BID PO 12/14/17 10:00 12/17/17 08:12 (Symbicort 160-4.5 Mcg Inh) 2 puff Q12HR INH 12/14/17 21:00 12/17/17 08:13 (Norvasc) 10 mg DAILY PO 12/17/17 09:00 12/17/17 08:12 (Lovenox Inj) 40 mg Q24H SQ 12/16/17 17:00 12/16/17 17:10 (SoluMEDROL INJ) 40 mg BID IV PUSH 12/16/17 21:00 12/17/17 08:12 A/P Assessment and Plan 1. Pneumonia/HCAP, as per learning operations specialist doctor Tom Lepe Pneumonia with hypoxemia, Pulmonary Fibrosis wit bronchiectasis and chronic bronchitis, recommended Solu-Medrol , Symbicort and following. Cefepime. Azithromycin, his last hospitalization 09/12/17, oxygen at home will be scheduled. 2. Pulmonary fibrosis/COPD, status post spontaneous Pneumothorax, status post VATS/Bleb resection/pleurodesis by Doctor Blunt on 08/23/17, Sewing Line Baler is Dr. Santos following. Oxygen, PFT and BMP to follow. 3. Multifocal Atrial Tachycardia on metoprolol started by Cardiology on last admission will continue same medicine. 4. Hypertension Uncontrolled increased Amlodipine 10 mg. continue metoprolol 25 mg BID. better control. DVT prophylaxis with Lovenox. Discharge Planning Expected in one to two days. Kingsley Murphy MD Dec 17, 2017 09:20
--- NOTE | 2017-12-17 14:43 | EKG ---
Date Performed: 12/16/2017 Time Performed: 11:40:40 PTAGE: 47 years EKG: Atrial fibrillation with rapid ventricular response with PVC(s) or aberrant ventricular con duction. Right axis deviation Right ventricular hypertrophy Septal and lateral ST-T changes are proba mariola due to ventricular hypertrophy Abnormal ECG PREVIOUS TRACING : 12/12/2017 02.03 Voltage has changed. [place] has shifted. Possible rhythm martin ge. Clinical correlation strongly recommended. DOCTOR: Toñito Lua Interpretating Date/Time 12/17/2017 14:41:58
[2017-12-17] MEDS: ENOXAPARIN SODIUM 40 MG/0.4 ML SYRINGE SQ SCH (18:52)
[2017-12-17] MEDS: oxyCODONE/ACETAMINOPHEN 5 MG/325 MG TAB PO PRN (20:31)
[2017-12-18] VITALS (8 sets, daily range): BP systolic 122–153; BP diastolic 89–99; PULSE 65–88; RESP 16–21; TEMP 97.7–98.4; O2SAT 91–93
[2017-12-18] MEDS: AZITHROMYCIN INJ 250 MG in SODIUM CHLOR 0.9% 250 ML INJ 250 ML IV SCH (02:11)
[2017-12-18] MEDS: CEFEPIME INJ 1,000 MG in SODIUM CHLORIDE 0.9% INJ 100 ML IV SCH ×2 (03:31→12:53)
[2017-12-18] MEDS: BUDESONIDE-FORMOTEROL 160/4.5 MCG INHALER INH SCH ×2 (08:38→20:43)
[2017-12-18] MEDS: METOPROLOL TARTRATE 25 MG TAB PO SCH ×2 (08:38→20:41)
[2017-12-18] MEDS: guaiFENesin E.R. 600 MG TAB PO SCH ×2 (08:38→20:41)
[2017-12-18] MEDS: SODIUM CHLORIDE 0.9% FLUSH 10 ML FLUSH IV FLUSH SCH ×2 (08:38→20:41)
[2017-12-18] MEDS: methylPREDNISolone SOD SUCC 40 MG/1 ML VIAL IV PUSH SCH (08:38)
[2017-12-18] MEDS: TIOTROPIUM BROMIDE 18 MCG INH INH SCH (08:39)
--- NOTE | 2017-12-18 09:41 | HHI.PR ---
Subjective Remarks This is a pleasant 47 y/o male with Pulmonary fibrosis, COPD, Hypertension, who came to ER with cough and fever, His Primary security incident response specialist is Doctor Tom, History of recurrent Pneumothorax. on nasal Cannula. Seen by His primary security incident response specialist saw him with Diagnosis of Basilar Pneumonia with hypoxemia, Pulmonary Fibrosis wit bronchiectasis and chronic bronchitis, recommended Solu-Medrol, Symbicort and following. 12/15: Seen in his bedroom, security incident response specialist following, to continue antibiotics Cefepime wean oxygen to 3 L and arrange home Oxygen, Solu-Medrol to every 12 hours and bronchodilators. 12/16: Stable seen with nurse miss Naranjo, no new issues. 12/17: followed by security incident response specialist recommended to continue antibiotics switch to by mouth today, wean oxygen arrange home Oxygen, PFT and BMP to follow. 12/18: seen in his bedroom, not wearing Oxygen, awaiting for new Respiratory Therapy evaluation walk test if pass this time he may go home, discussed with nurse, Charge nurse and Multidisciplinary meeting Objective Vital Signs Date Time Temp Pulse Resp B/P (MAP) Pulse Ox O2 Delivery O2 Flow Rate FiO2 12/18/17 04:00 98.4 77 16 131/90 (104) 92 12/18/17 03:46 70 12/18/17 00:00 98.1 83 18 143/92 (109) 92 12/17/17 23:43 79 12/17/17 20:00 Room Air 12/17/17 20:00 98.3 80 18 151/80 (103) 93 12/17/17 16:00 98.1 76 20 134/96 (109) 97 12/17/17 16:00 77 12/17/17 12:49 2.00 12/17/17 12:00 98.5 80 20 142/86 (104) 92 12/17/17 10:00 96 Nasal Cannula 2.00 I/O 12/17/17 12/17/17 12/17/17 12/18/17 12/18/17 12/18/17 07:00 15:00 23:00 07:00 15:00 23:00 Intake Total 950 ml 360 ml 1920 ml Output Total 120 ml 1000 ml Balance 830 ml 360 ml 920 ml Intake Oral 950 ml 360 ml 1920 ml Output Urine Total 120 ml 1000 ml # Voids 7 4 # Bowel Movements 1 1 Imaging Last Impressions Chest X-Ray 12/15/17 0600 Signed Impressions: Service Date/Time: November 08:26 - CONCLUSION: Bilateral pulmonary opacities unchanged. Emphysema with large left medial upper lung bulla unchanged. Brandon Koo MD Procedures None Other Results Laboratory Tests Test 12/12/17 00:55 12/12/17 01:10 12/12/17 01:25 12/13/17 08:00 Prothrombin Time 10.7 SEC Prothromb Time International Ratio 1.1 RATIO Activated Partial Thromboplast Time 28.6 SEC Blood Urea Nitrogen 8 MG/DL 8 MG/DL Creatinine 0.97 MG/DL 0.68 MG/DL Random Glucose 104 MG/DL 118 MG/DL Total Protein 9.1 GM/DL Albumin 3.5 GM/DL Calcium Level 8.4 MG/DL 8.9 MG/DL Magnesium Level 1.7 MG/DL Alkaline Phosphatase 67 U/L Aspartate Amino Transf (AST/SGOT) 22 U/L Alanine Aminotransferase (ALT/SGPT) 16 U/L Total Bilirubin 0.3 MG/DL Sodium Level 139 MEQ/L 138 MEQ/L Potassium Level 3.6 MEQ/L 4.3 MEQ/L Chloride Level 106 MEQ/L 105 MEQ/L Carbon Dioxide Level 25.7 MEQ/L 25.3 MEQ/L Total Creatine Kinase 286 U/L Creatine Kinase MB 2.3 NG/ML Troponin I LESS THAN 0.02 NG/ML C-Reactive Protein 2.45 MG/DL B-Type Natriuretic Peptide 13 PG/ML Lipase 136 U/L Lactic Acid Level 1.4 mmol/L Urine Color YELLOW Urine Turbidity CLEAR Urine pH 5.5 Urine Specific [place] 1.011 Urine Protein NEG mg/dL Urine Glucose (UA) NEG mg/dL Urine Ketones NEG mg/dL Urine Occult Blood NEG Urine Nitrite NEG Urine Bilirubin NEG Urine Urobilinogen LESS THAN 2.0 MG/DL Urine Leukocyte Esterase NEG Urine RBC LESS THAN 1 /hpf Urine WBC LESS THAN 1 /hpf Microscopic Urinalysis Comment CULT NOT INDICATED White Blood Count 15.1 TH/MM3 Red Blood Count 4.12 MIL/MM3 Hemoglobin 11.7 GM/DL Hematocrit 35.2 % Mean Corpuscular Volume 85.5 FL Mean Corpuscular Hemoglobin 28.3 PG Mean Corpuscular Hemoglobin Concent 33.1 % Red Cell Distribution Width 14.5 % Platelet Count 243 TH/MM3 Mean Platelet Volume 8.3 FL Neutrophils (%) (Auto) 91.4 % Lymphocytes (%) (Auto) 6.1 % Monocytes (%) (Auto) 2.3 % Eosinophils (%) (Auto) 0.0 % Basophils (%) (Auto) 0.2 % Neutrophils # (Auto) 13.8 TH/MM3 Lymphocytes # (Auto) 0.9 TH/MM3 Monocytes # (Auto) 0.3 TH/MM3 Eosinophils # (Auto) 0.0 TH/MM3 Basophils # (Auto) 0.0 TH/MM3 CBC Comment DIFF FINAL Differential Comment Anion Gap 8 MEQ/L Estimat Glomerular Filtration Rate 150 ML/MIN Test 12/15/17 07:13 Objective Remarks GENERAL: Well nourished/well developed patient in no apparent distress CARDIOVASCULAR: Regular rate and rhythm without murmurs, gallops or rubs. RESPIRATORY: Bibasilar crackles. GASTROINTESTINAL: Abdomen soft, non-tender, nondistended. Normal active bowel sounds MUSCULOSKELETAL: Extremities without clubbing, cyanosis, no edema. NEURO: Alert & Oriented x4 to person, place, time, and situation. Moves all ext x4 Medications and IVs Current Medications Medications (Trade) Dose Ordered Sig/Susanna Route Start Time Stop Time Status Last Admin (NS Flush) 2 ml UNSCH PRN IV FLUSH 12/12/17 03:00 12/16/17 04:39 (NS Flush) 2 ml BID IV FLUSH 12/12/17 09:00 12/18/17 08:38 (Tylenol) 650 mg Q4H PRN PO 12/12/17 03:00 (Zofran Inj) 4 mg Q6H PRN IV PUSH 12/12/17 03:00 12/14/17 03:53 (Duoneb Neb) 1 ampule Q4HR NEB PRN INH 12/12/17 03:00 (Lopressor) 25 mg Q12HR PO 12/12/17 09:00 12/18/17 08:38 (Spiriva Inh) 18 mcg DAILY INH 12/12/17 09:00 12/18/17 08:39 (Percocet 5-325 Mg) 1 tab Q4H PRN PO 12/12/17 03:45 12/17/17 20:31 (Milk Of Magnesia Liq) 30 ml Q6H PRN PO 12/13/17 22:15 12/16/17 21:27 (Dulcolax Supp) 10 mg DAILY PRN RECTAL 12/13/17 22:15 (Mimi-Colace) 2 tab BID PRN PO 12/13/17 22:15 12/14/17 22:00 (Vasotec Inj) 1.25 mg Q6H PRN IV PUSH 12/13/17 22:30 12/16/17 02:38 (Catapres) 0.1 mg Q6H PRN PO 12/13/17 22:30 12/17/17 08:22 Azithromycin 250 mg/Sodium Chloride 250 ml @ 250 mls/hr DAILY@0300 IV 12/15/17 03:00 12/18/17 02:11 Cefepime HCl 1000 mg/Sodium Chloride 100 ml @ 200 mls/hr Q8H IV 12/14/17 11:00 12/18/17 03:31 (Mucinex Er) 600 mg BID PO 12/14/17 10:00 12/18/17 08:38 (Symbicort 160-4.5 Mcg Inh) 2 puff Q12HR INH 12/14/17 21:00 12/18/17 08:38 (Norvasc) 10 mg DAILY PO 12/17/17 09:00 12/18/17 08:38 (Lovenox Inj) 40 mg Q24H SQ 12/16/17 17:00 12/17/17 18:52 (SoluMEDROL INJ) 40 mg BID IV PUSH 12/16/17 21:00 12/18/17 08:38 A/P Assessment and Plan 1. Pneumonia/HCAP, as per security incident response specialist doctor Tom Lepe Pneumonia with hypoxemia, Pulmonary Fibrosis with bronchiectasis and chronic bronchitis, recommended Solu- Medrol, Symbicort and following. Cefepime. Azithromycin, his last hospitalization 09/12/17, oxygen at home will be scheduled. switch to by mouth Prednisone starting tomorrow if discharge will go home on by mouth steroids and by mouth antibiotics. 2. Pulmonary fibrosis/COPD, status post spontaneous Pneumothorax, status post VATS/Bleb resection/pleurodesis by Doctor Blunt on 08/23/17, Skirt Clipper is Dr. Santos following. Oxygen, PFT and BMP to follow. continue present care. 3. Multifocal Atrial Tachycardia on metoprolol started by Cardiology on last admission will continue same medicine. 4. Hypertension Uncontrolled increased Amlodipine 10 mg. continue metoprolol 25 mg BID. better control. DVT prophylaxis with Lovenox. Discharge Planning Expected later today or in am tomorrow. Kingsley Murphy MD Dec 18, 2017 09:41
[2017-12-18 12:03] LABS: BICARBONATE 28.5 MEQ/L (21.0-32.0); CALCIUM 8.8 MG/DL (8.5-10.1); CREATININE 0.91 MG/DL (0.60-1.30); MAGNESIUM 2.2 MG/DL (1.5-2.5)
[2017-12-18] MEDS ORDERED: Budeson-Formot 160-4.5 Mcg Inh INH (16:54)
[2017-12-18] MEDS ORDERED: OXYC1TAB63 PO (16:54)
[2017-12-18] MEDS ORDERED: guaiFENesin ER PO (16:54)
[2017-12-18] MEDS ORDERED: LEVA750T9 PO (16:54)
[2017-12-18] MEDS ORDERED: PRED10 PO (16:54)
[2017-12-18] MEDS ORDERED: AMLO10 PO (16:54)
--- NOTE | 2017-12-18 16:55 | HHI.DS ---
Discharge Summary Admission Date Dec 12, 2017 at 03:07 Discharge Date: Dec 18, 2017 Admitting Diagnosis Pneumonia, COPD exacerbation (1) Recurrent spontaneous pneumothorax ICD Code: J93.83 - Other pneumothorax Diagnosis: Secondary Status: Acute (2) HTN (hypertension) ICD Code: I10 - Essential (primary) hypertension Diagnosis: Principal (3) Pulmonary fibrosis ICD Code: J84.10 - Pulmonary fibrosis, unspecified Diagnosis: Principal (4) COPD exacerbation ICD Code: J44.1 - Chronic obstructive pulmonary disease with (acute) exacerbation Diagnosis: Principal Status: Acute (5) Bilateral pneumonia ICD Code: J18.9 - Pneumonia, unspecified organism Diagnosis: Principal Status: Acute Procedures None Brief History - From Admission 47-year-old male with a past medical history significant for pulmonary fibrosis , COPD and hypertension presents to the emergency department for evaluation of a cough and fever. The patient reports his cough started approximately 10 days ago and is productive of clear sputum with associated emesis. He endorses fevers and chills that started today. He also states he has had shortness of breath that has been increasing over the past 3-4 days. Vital signs temperature 100.7, pulse 127, respiration 16, BP 141/80, pulse ox 94% on 2 L nc. CBC/BMP: 12/18/17 1036 Significant Findings Laboratory Tests Test 12/18/17 10:36 Random Glucose 146 MG/DL (74-106) Imaging Last Impressions Chest X-Ray 12/15/17 0600 Signed Impressions: Service Date/Time: November 08:26 - CONCLUSION: Bilateral pulmonary opacities unchanged. Emphysema with large left medial upper lung bulla unchanged. Brandon Koo MD PE at Discharge GENERAL: Well nourished/well developed patient in no apparent distress CARDIOVASCULAR: Regular rate and rhythm without murmurs, gallops or rubs. RESPIRATORY: Bibasilar crackles. GASTROINTESTINAL: Abdomen soft, non-tender, nondistended. Normal active bowel sounds MUSCULOSKELETAL: Extremities without clubbing, cyanosis, no edema. NEURO: Alert & Oriented x4 to person, place, time, and situation. Moves all ext x4 Hospital Course This is a pleasant 47 y/o male with Pulmonary fibrosis, COPD, Hypertension, who came to ER with cough and fever, His Primary student specialist is Doctor Santos, History of recurrent Pneumothorax. on nasal Cannula. Seen by His primary student specialist saw him with Diagnosis of Basilar Pneumonia with hypoxemia, Pulmonary Fibrosis wit bronchiectasis and chronic bronchitis, recommended Solu-Medrol, Symbicort and following. 12/15: Seen in his bedroom, student specialist following, to continue antibiotics Cefepime wean oxygen to 3 L and arrange home Oxygen, Solu-Medrol to every 12 hours and bronchodilators. 12/16: Stable seen with nurse Marcella, no new issues. 12/17: followed by student specialist recommended to continue antibiotics switch to by mouth today, wean oxygen arrange home Oxygen, PFT and BMP to follow. 12/18: seen in his bedroom, not wearing Oxygen, awaiting for new Respiratory Therapy evaluation walk test if pass this time he may go home, discussed with nurse, Charge nurse and Multidisciplinary meeting Assessment and Plan 1. Pneumonia/HCAP, as per student specialist doctor Tom Bibasila Pneumonia with hypoxemia, Pulmonary Fibrosis with bronchiectasis and chronic bronchitis, recommended Solu- Medrol, Symbicort and following. Cefepime. Azithromycin, his last hospitalization 09/12/17, oxygen at home will be scheduled. switch to by mouth Prednisone starting tomorrow if discharge will go home on by mouth steroids and by mouth antibiotics. 2. Pulmonary fibrosis/COPD, status post spontaneous Pneumothorax, status post VATS/Bleb resection/pleurodesis by Doctor Blunt on 08/23/17, [facility] Miller is Dr. Santos following. Oxygen, PFT and BMP to follow. continue present care. 3. Multifocal Atrial Tachycardia on metoprolol started by Cardiology on last admission will continue same medicine. 4. Hypertension Uncontrolled increased Amlodipine 10 mg. continue metoprolol 25 mg BID. better control. DVT prophylaxis with Lovenox. Discharge Planning Expected later today or in am tomorrow. Pt Condition on Discharge: Good Discharge Disposition: Discharge Home Discharge Time: > 30 minutes Discharge Instructions DIET: Follow Instructions for: Heart Healthy Diet Activities you can perform: Regular-No Restrictions Kingsley Murphy MD Dec 18, 2017 16:55
[2017-12-18] MEDS: ENOXAPARIN SODIUM 40 MG/0.4 ML SYRINGE SQ SCH (17:00)
[2017-12-18] MEDS ORDERED: predniSONE 20 MG TAB PO SCH (21:00)
[2017-12-19] MEDS ORDERED: LEVOFLOXACIN 750 MG TAB PO SCH (09:00)
[2017-12-19 14:22] LABS: ALPHA-1-ANTITRYPSIN 144 mg/dL (100 - 190)
== END 2017-12-18 21:15 | disposition home or self-care (01) | DRG 194 ==
LOC: NEPC 00:05 → NEDA 03:07 → N04B 04:26
PROVIDERS: ADMIT Internal Medicine; ATTEND Internal Medicine
DX: J18.9 Pneumonia, unspecified organism (principal); J44.1 Chronic obstructive pulmonary disease with (acute) exacerbation; J47.0 Bronchiectasis with acute lower respiratory infection; J44.0 Chronic obstructive pulmonary disease with (acute) lower respiratory infection; J84.10 Pulmonary fibrosis, unspecified; I47.1 Supraventricular tachycardia; I10 Essential (primary) hypertension; Z87.891 Personal history of nicotine dependence
CPT/HCPCS: 71045; 71046; 80048; 80053; 81001; 82103; 82104; 82550; 82552; 83605; 83690; 83735; 83880; 84484; 85025; 85610; 85730; 86140; 87040; 87070; 87077; 87186; 87205; 87804; 93005; 94150; 94618; 94640; 94664; 99285; J0456; J0692; J0696; J1650; J2405; J2920; J7030; J7050; J7512

== ENCOUNTER 2017-12-25 03:49 | Inpatient (IN) | payer OTHER ==
[~2017-12-25] VITALS: Ht 188 cm; Wt 79.2 kg
[2017-12-25] VITALS (17 sets, daily range): BP systolic 96–167; BP diastolic 60–84; PULSE 78–127; RESP 18–20; TEMP 97.7–102.8; O2SAT 90–100
[~2017-12-25 03:49] MED LIST changes: +AMLO10 PO; +Budeson-Formot 160-4.5 Mcg Inh INH; +LEVA750T9 PO; +OXYC1TAB63 PO; +PRED10 PO; -SYMB80AE INH; +guaiFENesin ER PO
[2017-12-25] MEDS ORDERED: SODIUM CHLOR 0.9% 1000 ML INJ 1,000 ML IV ONE ×2 (04:00)
[2017-12-25] MEDS ORDERED: SODIUM CHLORIDE 0.9% FLUSH 10 ML FLUSH IVF PRN (04:00)
[2017-12-25] MEDS ORDERED: ACETAMINOPHEN 325 MG TAB PO ONE (04:00)
--- NOTE | 2017-12-25 04:03 | PD ---
HPI Chief Complaint: Respiratory Distress Time Seen by Provider: 03:54 Travel History International Travel<30 days: No Contact w/Intl Traveler<30days: No Traveled to known affect area: No History of Present Illness HPI 47-year-old male with history of pulmonary fibrosis, COPD, recurrent pneumothorax status post VATS/bleb resection/pleuradesis, hypertension, brought in by ambulance for evaluation of fever and shortness of breath. The patient was recently admitted with similar symptoms and was discharged home with antibiotics after being diagnosed with COPD exacerbation and pneumonia on . States that his symptoms have been worsening over the last 24 hours. Cough is productive of greenish sputum. Shortness breath is at rest. Feels like his chest is tight. EMS provided 125 mg of IV Solu-Medrol and an albuterol nebulized treatment. PFSH Past Medical History Arthritis: No Asthma: No Autoimmune Disease: No Anxiety: No Depression: No Cancer: No Cardiovascular Problems: No COPD: No Cerebrovascular Accident: No Endocrine: No Genitourinary: No Immune Disorder: No Implanted Vascular Access Dvce: No Musculoskeletal: Yes ("SCIATICA") Neurologic: Yes Psychiatric: No Reproductive: No Respiratory: Yes (copd) Migraines: Yes ("I'VE SUFFERED FROM MIGRAINES SINCE I WAS ABOUT 4 YEARS OLD") Seizures: No Sleep Apnea: No Past Surgical History Abdominal Surgery: No Cardiac Surgery: No Ear Surgery: No Endocrine Surgery: No Eye Surgery: No Genitourinary Surgery: No Gynecologic Surgery: No Oral Surgery: No Thoracic Surgery: No Other Surgery: Yes (RECONSTRUCTION OF TENDON IN LEFT HAND) Social History Alcohol Use: Yes (OCC) Tobacco Use: No Substance Use: No Allergies-Medications (Allergen,Severity, Reaction): Coded Allergies: No Known Allergies (Verified Allergy, Unknown, 12/12/17) Reported Meds & Prescriptions Reported Meds & Active Scripts Active Prednisone 10 Mg Tab 10 Mg PO DAILY TAKE THREE TABLETS BY MOUTH DAILY FOR 3 DAYS THEN TAKE TWO TABLETS BY MOUTH DAILY FOR 3 DAYS THEN TAKE ONE TABLET DAILY UNTIL SEEN BY SALES SUPPORT TECHNICIAN IN 5 DAYS. [guaiFENesin ER] 600 MG Tabcr 600 Mg PO BID [Budeson-Formot 160-4.5 Mcg Inh] 60 PUFF Aero 2 Puff INH Q12HR Oxycodone-Acetaminophen 5-325 (Oxycodone HCl/Acetaminophen) 5 Mg-325 Mg Tablet 1 Tab PO Q4H PRN DO NOT USE THIS MEDICINE IF YOU WILL DRIVE A CAR OR USE A MACHINE, ONLY USE IT WHEN RESTING AT HOME. Norvasc (Amlodipine Besylate) 10 Mg Tab 10 Mg PO DAILY Ventolin Hfa 18 GM Inh (Albuterol Sulfate) 90 Mcg/Act Aer 2 Puff INH Q4-6H PRN Metoprolol Tartrate 25 Mg Tab 25 Mg PO Q12HR Spiriva Handihaler (Tiotropium Inh) 18 Mcg Cap 18 Mcg INH DAILY 1 capsule = 18 mcg Review of Systems Except as stated in HPI: all other systems reviewed are Neg Physical Exam Narrative GENERAL: Well-developed, well-nourished, moderate respiratory distress, speaking a few words at a time. SKIN: Focused skin assessment warm/dry. HEAD: Atraumatic. Normocephalic. EYES: Pupils equal and round. No scleral icterus. No injection or drainage. ENT: Mucous membranes pink and moist. NECK: Trachea midline. No JVD. CARDIOVASCULAR: Tachycardic, rate 128, regular. RESPIRATORY: No accessory muscle use. Moderate respiratory distress. Speaking a few words at a time. Poor air movement bilaterally. GASTROINTESTINAL: Abdomen soft, non-tender, nondistended. MUSCULOSKELETAL: No obvious deformities. No clubbing. No cyanosis. No edema. NEUROLOGICAL: Awake and alert. No obvious cranial nerve deficits. Motor grossly within normal limits. Normal speech. PSYCHIATRIC: Appropriate mood and affect; insight and judgment normal. Data Data Last Documented VS Vital Signs Date Time Temp Pulse Resp B/P (MAP) Pulse Ox O2 Delivery O2 Flow Rate FiO2 12/25/17 05:05 115 129/75 (93) 100 Nasal Cannula 1.00 12/25/17 04:15 99.4 Orders Orders Complete Blood Count With Diff (12/25/17 03:54) Comprehensive Metabolic Panel (12/25/17 03:54) B-Type Natriuretic Peptide (12/25/17 03:54) Act Partial Throm Time (Ptt) (12/25/17 03:54) Prothrombin Time / Inr (Pt) (12/25/17 03:54) Ckmb (Isoenzyme) Profile (12/25/17 03:54) Troponin I (12/25/17 03:54) Influenzae A/B Antigen (12/25/17 03:54) Blood Culture (12/25/17 03:54) Iv Access Insert/Monitor (12/25/17 03:54) Ecg Monitoring (12/25/17 03:54) Oximetry (12/25/17 03:54) Oxygen Administration (12/25/17 03:54) Chest, Single Ap (12/25/17 03:54) Sodium Chloride 0.9% Flush (Ns Flush) (12/25/17 04:00) Albuterol-Ipratropium Neb (Duoneb Neb) (12/25/17 04:00) Arterial Blood Gas (Abg) (12/25/17 ) Lactic Acid (12/25/17 03:57) Sodium Chlor 0.9% 1000 Ml Inj (Ns 1000 M (12/25/17 04:00) Sodium Chlor 0.9% 1000 Ml Inj (Ns 1000 M (12/25/17 04:00) Acetaminophen (Tylenol) (12/25/17 04:00) Cefepime Inj (Maxipime Inj) (12/25/17 04:15) Azithromycin Inj (Zithromax Inj) (12/25/17 04:15) Oseltamivir (Tamiflu) (12/25/17 04:15) Morphine Inj (Morphine Inj) (12/25/17 04:30) Lidocai-Epi 1%-1:100,000 Inj (Xylocaine- (12/25/17 04:30) CKMB (12/25/17 04:01) CKMB% (12/25/17 04:01) Chest, Single Ap (12/25/17 ) Labs Laboratory Tests Test 12/25/17 03:50 12/25/17 04:01 12/25/17 04:05 Lactic Acid Level 1.8 mmol/L White Blood Count 13.0 TH/MM3 Red Blood Count 4.91 MIL/MM3 Hemoglobin 13.8 GM/DL Hematocrit 41.2 % Mean Corpuscular Volume 83.9 FL Mean Corpuscular Hemoglobin 28.1 PG Mean Corpuscular Hemoglobin Concent 33.5 % Red Cell Distribution Width 14.6 % Platelet Count 256 TH/MM3 Mean Platelet Volume 7.3 FL Neutrophils (%) (Auto) 84.8 % Lymphocytes (%) (Auto) 8.8 % Monocytes (%) (Auto) 5.7 % Eosinophils (%) (Auto) 0.3 % Basophils (%) (Auto) 0.4 % Neutrophils # (Auto) 11.1 TH/MM3 Lymphocytes # (Auto) 1.1 TH/MM3 Monocytes # (Auto) 0.7 TH/MM3 Eosinophils # (Auto) 0.0 TH/MM3 Basophils # (Auto) 0.0 TH/MM3 CBC Comment DIFF FINAL Differential Comment Prothrombin Time 11.0 SEC Prothromb Time International Ratio 1.1 RATIO Activated Partial Thromboplast Time 27.5 SEC Blood Urea Nitrogen 10 MG/DL Creatinine 0.91 MG/DL Random Glucose 83 MG/DL Total Protein 8.0 GM/DL Albumin 3.3 GM/DL Calcium Level 8.2 MG/DL Alkaline Phosphatase 68 U/L Aspartate Amino Transf (AST/SGOT) 22 U/L Alanine Aminotransferase (ALT/SGPT) 33 U/L Total Bilirubin 0.6 MG/DL Sodium Level 137 MEQ/L Potassium Level 3.9 MEQ/L Chloride Level 103 MEQ/L Carbon Dioxide Level 28.5 MEQ/L Anion Gap 6 MEQ/L Estimat Glomerular Filtration Rate 107 ML/MIN Total Creatine Kinase 201 U/L Creatine Kinase MB 2.8 NG/ML Troponin I LESS THAN 0.02 NG/ML B-Type Natriuretic Peptide 31 PG/ML Blood Gas Puncture Site LT RADIAL Blood Gas Patient Temperature 98.6 Blood Gas HCO3 25 mmol/L Blood Gas Base Excess 1.9 mmol/L Blood Gas Oxygen Saturation 92 % Arterial Blood pH 7.51 Arterial Blood Partial Pressure CO2 31 mmHg Arterial Blood Partial Pressure O2 60 mmHG Arterial Blood Oxygen Content 17.1 Vol % Arterial Blood Carboxyhemoglobin 1.7 % Arterial Blood Methemoglobin 0.5 % Blood Gas Hemoglobin 13.3 G/DL Oxygen Delivery Device NASAL CANNULA Blood Gas Liter Flow 1.5 L/M [facility] Medical Decision Making Medical Screen Exam Complete: Yes Emergency Medical Condition: Yes Medical Record Reviewed: Yes Differential Diagnosis Sepsis, pneumonia, pneumothorax, PE, ACS, influenza, COPD exacerbation Narrative Course Chest x-ray shows interval development of left-sided pneumothorax where patient has had several previous pneumothoraces as well as severe pulmonary fibrosis and right-sided infiltrate. Left sided pigtail chest tube was placed. See procedure note. Post procedure chest x-ray: FINDINGS: Left mid to upper medial bullous emphysematous change noted. Coarse parenchymal markings are noted bilaterally. There is minimal placement of a left sided chest tube the distal coil projects between the sixth and seventh posterior rib. The pneumothorax is decreased in size however is noted to extend from the left lung base to the apex and there has approximately 1.2 cm of pleural separation. CBC: WBC 13, hemoglobin 13.8, hematocrit 41.2, platelets 256, neutrophils 84.8%. CMP is unremarkable. Cardiac enzymes are negative. BNP is 31. Lactic acid is 1.8. Influenza is negative. Patient was started on cefepime and azithromycin as well as Tamiflu. He was given IV Solu-Medrol by EMS as well as 2 nebs. After chest tube placement the patient's respiratory status has significantly improved. He still remains tachycardic, sinus. His merchandising consultant is Dr. Santos. He will be admitted to the medical service for further treatment and evaluation. Case discussed with hospitalist Dr. Robertson who will admit the patient to her service. Procedures Procedure Narrative CHEST TUBE THORACOSTOMY: The left chest was prepped with ChloraPrep and sterilely draped. The area of the fourth intercostal interspace was infiltrated with 3 cc of 1% lidocaine with epinephrine. A 0.5 centimeter incision was made with a scalpel at the fourth intercostal space. A 10 Maltese pigtail catheter was placed above the fourth rib with immediate jiang of air. The thoracostomy tube was secured with thoracostomy adhesive. Sterile seal dressing placed. Patient tolerated procedure well. Postprocedure x-rays ordered. Diagnosis Primary Impression: Recurrent spontaneous pneumothorax Additional Impressions: COPD exacerbation Pneumonia Qualified Codes: J18.9 - Pneumonia, unspecified organism Admitting Information Admitting Physician Requests: Admit Uvaldo Hyde MD Dec 25, 2017 04:03
[2017-12-25] MEDS: RESP: ALBUTEROL 2.5 MG/IPRATROPIUM 0.5 MG NEB (SCH) INH ×4 (04:05→20:06)
[2017-12-25] MEDS ORDERED: OSELTAMIVIR PHOSPHATE 75 MG CAP PO ONE (04:15)
[2017-12-25] MEDS ORDERED: AZITHROMYCIN INJ 500 MG in SODIUM CHLOR 0.9% 250 ML INJ 250 ML IV ONE (04:15)
[2017-12-25] MEDS ORDERED: CEFEPIME INJ 1,000 MG in SODIUM CHLORIDE 0.9% INJ 100 ML IV ONE (04:15)
--- NOTE | 2017-12-25 04:27 | RADRPT ---
EXAM DATE/TIME: 12/25/2017 04:03 [facility] COMPARISON: CHEST PA & LAT, December 15, 2017, 8:26. CHEST SINGLE AP, December 12, 2017, 0:58. CT PULMONARY ANGIO GRAM, December 09, 2017, 16:59. INDICATIONS : Shortness of breath MEDICAL HISTORY : Pulmonary Fibrosis SURGICAL HISTORY : None. ENCOUNTER: Initial ACUITY: 1 day PAIN SCORE: 8/10 LOCATION: Bilateral chest FINDINGS: Course parenchymal opacities are again seen bilaterally with increasing alveolar and interstitial inf iltrate at the right lung base. On the left prominent bulla and emphysematous changes are seen greate st in the medial left upper lung. There is interval development of a left-sided pneumothorax seen ext ending from left lung apex to the left lung base laterally with at least 4 cm of pleural separation a t the left lung base. A staple line at the left lung apex is noted. CONCLUSION: Left-sided pneumothorax is identified. Joshua Bryant MD on December 25, 2017 at 4:24 Board Certified Radiologist. This report was verified electronically.
[2017-12-25 04:28] LABS: AUTOMATED NEUTROPHIL # 11.1 TH/MM3 (1.8-7.7); BASOPHIL % 0.4 % (0.0-2.0); EOSINOPHIL % 0.3 % (0.0-4.0); HEMATOCRIT 41.2 % (39.0-51.0); HEMOGLOBIN 13.8 GM/DL (13.0-17.0); LYMPH % 8.8 % (9.0-44.0); LYMPHOCYTE # 1.1 TH/MM3 (1.0-4.8); MEAN CELL VOLUME 83.9 FL (80.0-100.0); MEAN CORPUSCULAR HEMOGLOBIN 28.1 PG (27.0-34.0); MEAN CORPUSCULAR HGB CONC 33.5 % (32.0-36.0); MEAN PLATELET VOLUME 7.3 FL (7.0-11.0); MONO % 5.7 % (0.0-8.0); MONOCYTE # 0.7 TH/MM3 (0-0.9); NEUT % 84.8 % (16.0-70.0); PLATELET COUNT 256 TH/MM3 (150-450); RED BLOOD COUNT 4.91 MIL/MM3 (4.50-5.90); RED CELL DISTRIBUTION WIDTH 14.6 % (11.6-17.2)
[2017-12-25] MEDS ORDERED: LIDOCAINE 1%/EPINEPHrine 1:100,000 SOLN 20 ML VIAL INFIL ONE (04:30)
[2017-12-25] MEDS ORDERED: MORPHINE SULFATE 2 MG/ML INJ IV PUSH ONE (04:30)
[2017-12-25 04:39] LABS: INTERNATIONAL NORMALIZED RATIO 1.1 RATIO
[2017-12-25 04:41] LABS: ALBUMIN 3.3 GM/DL (3.4-5.0); ALT (GPT) 33 U/L (12-78); BICARBONATE 28.5 MEQ/L (21.0-32.0); BLOOD UREA NITROGEN 10 MG/DL (7-18); CALCIUM 8.2 MG/DL (8.5-10.1); CHLORIDE 103 MEQ/L (98-107); GLUCOSE,RANDOM 83 MG/DL (74-106); SODIUM (NA) 137 MEQ/L (136-145)
[2017-12-25 04:46] LABS: ALKALINE PHOSPHATASE 68 U/L (45-117); AST (GOT) 22 U/L (15-37); CREATININE 0.91 MG/DL (0.60-1.30); GLOMERULAR FILTRATION RATE 107 ML/MIN (>89); TOTAL BILIRUBIN ADULT 0.6 MG/DL (0.2-1.0); TROPONIN I LESS THAN 0.02 NG/ML (0.02-0.05)
--- NOTE | 2017-12-25 05:03 | RADRPT ---
EXAM DATE/TIME: 12/25/2017 04:53 [facility] COMPARISON: CHEST SINGLE AP, December 25, 2017, 4:03. INDICATIONS : Evaluate left side chest tube and pneumothorax MEDICAL HISTORY : Pulmonary Fibrosis SURGICAL HISTORY : None. ENCOUNTER: Subsequent ACUITY: 1 day PAIN SCORE: 8/10 LOCATION: Bilateral chest FINDINGS: Left mid to upper medial bullous emphysematous change noted. Coarse parenchymal markings are noted bi laterally. There is minimal placement of a left sided chest tube the distal coil projects between the sixth and seventh posterior rib. The pneumothorax is decreased in size however is noted to extend fr om the left lung base to the apex and there has approximately 1.2 cm of pleural separation. CONCLUSION: Interval chest tube placement. Joshua Bryant MD on December 25, 2017 at 5:00 Board Certified Radiologist. This report was verified electronically.
[2017-12-25] MEDS ORDERED: SODIUM CHLOR 0.9% 1000 ML INJ 1,000 ML IV SCH (05:16)
[2017-12-25] MEDS ORDERED: ACETAMINOPHEN 325 MG TAB PO PRN (05:30)
[2017-12-25] MEDS ORDERED: RESP: ALBUTEROL 2.5 MG/IPRATROPIUM 0.5 MG NEB (PRN) INH (05:30)
[2017-12-25] MEDS: ENOXAPARIN SODIUM 40 MG/0.4 ML SYRINGE SQ SCH (05:58)
--- NOTE | 2017-12-25 06:14 | HHI.HP ---
HPI Service [facility] Hospitalists Primary Care Physician No Primary Care Physician Admission Diagnosis recurrent pneumothorax, pneumonia, pulmonary fibrosis Diagnoses: Travel History International Travel<30 Days: No Contact w/Intl Traveler <30 Da: No Traveled to Known Affected Are: No History of Present Illness 47-year-old male with a past medical history significant for pulmonary fibrosis , COPD and hypertension presents to the emergency department with increased shortness of breath. The patient reports for the past 24 hours he has had significant fever/chills and increasing shortness of breath. He endorses a new cough productive of yellow sputum. He was discharged from the hospital on where he was treated for pneumonia with azithromycin and cefepime. Patient was found to have a left-sided pneumothorax on chest x-ray. Denies chest pain. No nausea/vomiting. Vital signs: Temperature 102.8, pulse 127, BP 167/84, pulse ox 90% on room air. Review of Systems Except as stated in HPI: all other systems reviewed are Neg Past Family Social History Past Medical History Hypertension Pulmonary fibrosis COPD History of recurrent pneumothorax Past Surgical History VATS/bleb resection/pleurodesis by Dr. Amanda on 08/23/14 Reported Medications Reported Meds & Active Scripts Active Prednisone 10 Mg Tab 10 Mg PO DAILY TAKE THREE TABLETS BY MOUTH DAILY FOR 3 DAYS THEN TAKE TWO TABLETS BY MOUTH DAILY FOR 3 DAYS THEN TAKE ONE TABLET DAILY UNTIL SEEN BY BRIDGE OPERATOR IN 5 DAYS. [guaiFENesin ER] 600 MG Tabcr 600 Mg PO BID [Budeson-Formot 160-4.5 Mcg Inh] 60 PUFF Aero 2 Puff INH Q12HR Oxycodone-Acetaminophen 5-325 (Oxycodone HCl/Acetaminophen) 5 Mg-325 Mg Tablet 1 Tab PO Q4H PRN DO NOT USE THIS MEDICINE IF YOU WILL DRIVE A CAR OR USE A MACHINE, ONLY USE IT WHEN RESTING AT HOME. Norvasc (Amlodipine Besylate) 10 Mg Tab 10 Mg PO DAILY Ventolin Hfa 18 GM Inh (Albuterol Sulfate) 90 Mcg/Act Aer 2 Puff INH Q4-6H PRN Metoprolol Tartrate 25 Mg Tab 25 Mg PO Q12HR Spiriva Handihaler (Tiotropium Inh) 18 Mcg Cap 18 Mcg INH DAILY 1 capsule = 18 mcg Allergies: Coded Allergies: No Known Allergies (Verified Allergy, Unknown, 12/12/17) Family History Denies family history of coronary artery disease/diabetes mellitus Social History Quit tobacco and alcohol in June. Denies illicit drugs. Physical Exam Vital Signs Vital Signs Date Time Temp Pulse Resp B/P (MAP) Pulse Ox O2 Delivery O2 Flow Rate FiO2 12/25/17 05:42 100 Nasal Cannula 1.00 12/25/17 05:05 115 129/75 (93) 100 Nasal Cannula 1.00 12/25/17 05:02 113 12/25/17 04:45 116 136/76 (96) 100 Nasal Cannula 1.00 12/25/17 04:41 118 133/76 (95) 100 Nasal Cannula 1.00 12/25/17 04:15 99.4 127 100 12/25/17 03:59 93 Nasal Cannula 3.00 12/25/17 03:59 93 Nasal Cannula 3.00 12/25/17 03:52 102.8 127 167/84 (111) 90 Physical Exam GENERAL: Ammy male lying in bed SKIN: No rashes, ecchymoses or lesions. Cool and dry. HEAD: Atraumatic. Normocephalic. No temporal or scalp tenderness. EYES: Pupils equal round and reactive. Extraocular motions intact. No scleral icterus. No injection or drainage. ENT: Nose without bleeding, purulent drainage or septal hematoma. Throat without erythema, tonsillar hypertrophy or exudate. Uvula midline. Airway patent. NECK: Trachea midline. No JVD or lymphadenopathy. Supple, nontender, no meningeal signs. CARDIOVASCULAR: Regular rate and rhythm without murmurs, gallops, or rubs. RESPIRATORY: Bilateral crackles in the bases. Expiratory wheezes throughout. No rhonchi. No accessory muscle use. GASTROINTESTINAL: Abdomen soft, non-tender, nondistended. No hepato-splenomegaly , or palpable masses. No guarding. MUSCULOSKELETAL: Extremities without clubbing, cyanosis, or edema. No joint tenderness, effusion, or edema noted. No calf tenderness. NEUROLOGICAL: Awake and alert. Cranial nerves II through XII intact. Motor and sensory grossly within normal limits. Normal speech. Laboratory Laboratory Tests Test 12/25/17 03:50 12/25/17 04:01 12/25/17 04:05 Lactic Acid Level 1.8 White Blood Count 13.0 Red Blood Count 4.91 Hemoglobin 13.8 Hematocrit 41.2 Mean Corpuscular Volume 83.9 Mean Corpuscular Hemoglobin 28.1 Mean Corpuscular Hemoglobin Concent 33.5 Red Cell Distribution Width 14.6 Platelet Count 256 Mean Platelet Volume 7.3 Neutrophils (%) (Auto) 84.8 Lymphocytes (%) (Auto) 8.8 Monocytes (%) (Auto) 5.7 Eosinophils (%) (Auto) 0.3 Basophils (%) (Auto) 0.4 Neutrophils # (Auto) 11.1 Lymphocytes # (Auto) 1.1 Monocytes # (Auto) 0.7 Eosinophils # (Auto) 0.0 Basophils # (Auto) 0.0 CBC Comment DIFF FINAL Differential Comment Prothrombin Time 11.0 Prothromb Time International Ratio 1.1 Activated Partial Thromboplast Time 27.5 Blood Urea Nitrogen 10 Creatinine 0.91 Random Glucose 83 Total Protein 8.0 Albumin 3.3 Calcium Level 8.2 Alkaline Phosphatase 68 Aspartate Amino Transf (AST/SGOT) 22 Alanine Aminotransferase (ALT/SGPT) 33 Total Bilirubin 0.6 Sodium Level 137 Potassium Level 3.9 Chloride Level 103 Carbon Dioxide Level 28.5 Anion Gap 6 Estimat Glomerular Filtration Rate 107 Total Creatine Kinase 201 Creatine Kinase MB 2.8 Troponin I LESS THAN 0.02 B-Type Natriuretic Peptide 31 Blood Gas Puncture Site LT RADIAL Blood Gas Patient Temperature 98.6 Blood Gas HCO3 25 Blood Gas Base Excess 1.9 Blood Gas Oxygen Saturation 92 Arterial Blood pH 7.51 Arterial Blood Partial Pressure CO2 31 Arterial Blood Partial Pressure O2 60 Arterial Blood Oxygen Content 17.1 Arterial Blood Carboxyhemoglobin 1.7 Arterial Blood Methemoglobin 0.5 Blood Gas Hemoglobin 13.3 Oxygen Delivery Device NASAL CANNULA Blood Gas Liter Flow 1.5 Date/Time Source Procedure Growth Status 12/25/17 04:01 Blood Peripheral Aerobic Blood Culture Pending Received 12/25/17 04:01 Blood Peripheral Anaerobic Blood Culture Pending Received 12/25/17 04:01 Nasal Washing Influenza Types A,B Antigen (JAUN MANUEL) - Final NEGATIVE FOR FLU A AND B ANTIGEN.... Complete Result Diagram: 12/25/1740012/25/17 040 Caprini VTE Risk Assessment Caprini VTE Risk Assessment: No/Low Risk (score <= 1) Caprini Risk Assessment Model Point Value = 1 Point Value = 2 Point Value = 3 Point Value = 5 Age 41-60 Minor surgery BMI > 25 kg/m2 Swollen legs Varicose veins or History of unexplained or recurrent spontaneous Oral contraceptives or hormone replacement Sepsis (< 1 month) Serious lung disease, including pneumonia (< 1 month) Abnormal pulmonary function Acute myocardial infarction Congestive heart failure (< 1 month) History of inflammatory bowel disease Medical patient at bed rest Age 61-74 Arthroscopic surgery Major open surgery (> 45 min) Laparoscopic surgery (> 45 min) Malignancy Confined to bed (> 72 hours) Immobilizing plaster cast Central venous access Age >= 75 History of VTE Family history of VTE Factor V Leiden Prothrombin [id number] Lupus anticoagulant Anticardiolipin antibodies Elevated serum homocysteine Heparin-induced thrombocytopenia Other congenital or acquired thrombophilia Stroke (< 1 month) Elective arthroplasty Hip, pelvis, or leg fracture Acute spinal cord injury (< 1 month) Prophylaxis Regimen Total Risk Factor Score Risk Level Prophylaxis Regimen 0-1 Low Early ambulation 2 Moderate Order ONE of the following: *Sequential Compression Device (SCD) *Heparin 5000 units SQ BID 3-4 Higher Order ONE of the following medications: *Heparin 5000 units SQ TID *Enoxaparin/Lovenox 40 mg SQ daily (WT < 150 kg, CrCl > 30 mL/min) *Enoxaparin/Lovenox 30 mg SQ daily (WT < 150 kg, CrCl > 10-29 mL/min) *Enoxaparin/Lovenox 30 mg SQ BID (WT < 150 kg, CrCl > 30 mL/min) AND/OR *Sequential Compression Device (SCD) 5 or more Highest Order ONE of the following medications: *Heparin 5000 units SQ TID (Preferred with Epidurals) *Enoxaparin/Lovenox 40 mg SQ daily (WT < 150 kg, CrCl > 30 mL/min) *Enoxaparin/Lovenox 30 mg SQ daily (WT < 150 kg, CrCl > 10-29 mL/min) *Enoxaparin/Lovenox 30 mg SQ BID (WT < 150 kg, CrCl > 30 mL/min) AND *Sequential Compression Device (SCD) Assessment and Plan Assessment and Plan Assessment/plan: 1. Pneumothorax Chest x-ray significant for left-sided pneumothorax, personally reviewed Status post chest tube placement in the emergency department with improvement of the pneumothorax Pulmonary consulted for assistance in management of chest tube and recurrent pneumothorax Dilaudid for pain 2. Hospital-acquired pneumonia/Sepsis Patient febrile, tachycardic with leukocytosis Lactic acid pending Patient discharged from the hospital on 12/18 where he was treated for pneumonia with azithromycin and cefepime Chest x-ray significant for coarse parenchymal opacities with increasing alveolar and interstitial infiltrate at the right lung base Vancomycin/cefepime IV fluids Appreciate pulmonary recommendations 3. COPD/pulmonary fibrosis IV steroids DuoNeb's 4. Hypertension Continue home medications FEN Regular diet Electrolytes: monitor and replete prn NS at 125 cc/hr Ambulation Physician Certification 2 Midnight Certification Type: Admission for Inpatient Services Order for Inpatient Services The services are ordered in accordance with Medicare regulations or non- Medicare payer requirements, as applicable. In the case of services not specified as inpatient-only, they are appropriately provided as inpatient services in accordance with the 2-midnight benchmark. Estimated LOS (days): 2 2 days is the estimated time the patient will need to remain in the hospital, assuming treatment plan goals are met and no additional complications. Post-Hospital Plan: Not yet determined Yamila Robertson MD Dec 25, 2017 06:14
[2017-12-25] MEDS ORDERED: Vancomycin Consult Pharmacy 1 EA OTHER SCH (06:15)
[2017-12-25] MEDS: HYDROmorphone HCL PF 2 MG/ML VIAL IV PUSH PRN ×5 (06:19→23:28)
[2017-12-25] MEDS: methylPREDNISolone SOD SUCC 40 MG/1 ML VIAL IV PUSH SCH ×3 (06:20→21:15)
[2017-12-25] MEDS: SODIUM CHLOR 0.9% 1000 ML INJ 1,000 ML IV SCH ×3 (06:22→21:17)
[2017-12-25] MEDS ORDERED: VANCOMYCIN INJ 1,900 MG in SODIUM CHLORID 0.9% 500 ML INJ 500 ML IV SCH (08:00)
[2017-12-25] MEDS: SODIUM CHLORIDE 0.9% FLUSH 10 ML FLUSH IV FLUSH SCH ×2 (09:00→21:16)
[2017-12-25] MEDS: METOPROLOL TARTRATE 25 MG TAB PO SCH ×2 (09:00→21:15)
[2017-12-25] MEDS: guaiFENesin E.R. 600 MG TAB PO SCH ×2 (09:00→21:15)
[2017-12-25] MEDS: TIOTROPIUM BROMIDE 18 MCG INH INH SCH (10:47)
[2017-12-25] MEDS: BUDESONIDE-FORMOTEROL 160/4.5 MCG INHALER INH SCH ×2 (10:47→21:00)
[2017-12-25 12:48] LABS: LACTIC ACID SEPSIS PROTOCOL 3.5 mmol/L (0.4-2.0)
--- NOTE | 2017-12-25 13:18 | EKG ---
Date Performed: 12/25/2017 Time Performed: 03:55:22 PTAGE: 47 years EKG: SINUS TACHYCARDIA NONSPECIFIC ST & T-WAVE ABNORMALITY ABNORMAL RHYTHM ECG Compared to PREVIOUS TRACING , previous tracing shows reverse limb lead and atrial fibrillation. This EKG shows normal Sinus rhythm . PREVIOUS TRACIN12/16/2017 11.40.40 DOCTOR: Stefan Fox Interpretating Date/Time 12/25/2017 13:17:26
--- NOTE | 2017-12-25 14:20 | HHI.PR ---
Addendum to Inpatient Note Addendum Reason: Additional Documentation Additional Information The patient said that this pain was still a 10 out of 10 in severity. He said that the pain medications do help when he gets it. Tolerating a diet. He might be interested in working with physical therapy tomorrow. He is tolerating the chest tube. Continue antibiotics. Pulmonology consultation pending. Repeat lactic acid level III.5. Continue IV fluids. Repeat lactic acid level at 6 PM. Saleem Irizarry DO Dec 25, 2017 14:20
[2017-12-25] MEDS ORDERED: OSELTAMIVIR PHOSPHATE 75 MG CAP PO SCH (16:00)
--- NOTE | 2017-12-25 18:43 | MB ---
cc: Prerna CHANEY M.D. DATE OF CONSULTATION: 12/25/2017. REASON FOR CONSULTATION: Recurrent pneumothorax. HISTORY OF PRESENT ILLNESS : This is a 47-year-old man with a history of extensive pulmonary fibrosis, COPD and hypertension who was recently discharged from the hospital following treatment of pneumonia and exacerbation of COPD. The patient also has had a history of recurrent left pneumothorax requiring a thoracotomy and colectomy with pleurodesis. The patient however had severe coughing spells and apparently had some sharp pains in his left chest and thus came back to the emergency room and a chest x-ray again demonstrated a moderate sized left pneumothorax. He was treated for pneumonia about ten days ago and was on Zithromax and cefepime and subsequently Ceftin orally. The patient has had no hemoptysis. No fevers or chills. He denies any nausea or vomiting. PAST MEDICAL HISTORY: His past history includes: 1. COPD. 2. Bronchiectasis. 3. Pulmonary fibrosis. 4. Recurrent pneumothorax on the left. PAST SURGICAL HISTORY: Surgery also includes: 1. VATS. 2. Embolectomy on the left. 3. Pleurodesis. HABITS: The patient was a smoker for twenty years plus. No significant alcohol. FAMILY HISTORY: Family history is significant for diabetes and heart disease. ALLERGIES: NO ALLERGIES. REVIEW OF SYSTEMS: The patient has gained weight. He has shortness of breath, cough, wheezing, chest tightness. He has no abdominal pains. No urinary symptoms. No leg or calf muscle pains. He has some anxiety attacks and depression. PHYSICAL EXAMINATION: GENERAL: This is a well-built middle-aged man who is alert and in no acute distress. No pallor or icterus, no clubbing or edema. VITAL SIGNS: Blood pressure 130/80, pulse 112, respirations 24, temperature 99.2. HEAD, EYES, EARS, NOSE, THROAT: Head normocephalic. The pupils are reactive and equal. Tongue is moist. Nasal mucosa edematous. Throat clear. NECK: The neck is supple. No venous distention. CHEST: Decreased breath sounds over the left mid and upper chest with occasional crackles of the lung bases. HEART: Heart sounds are regular. S1 and S2. No murmur. No S3. ABDOMEN: Abdomen soft and scaphoid without masses. No organomegaly or tenderness. The bowel sounds are active. EXTREMITIES: No lesions. No edema. NEUROLOGIC: Reflexes are normal with no gross motor deficits. SKIN: No lesions. IMPRESSION: 1. Recurrent left pneumothorax with hypoxemia. 2. COPD and chronic bronchitis with bronchiectasis. 3. Basilar pulmonary fibrosis. 4. Hypertension. PLAN: The patient has a chest tube in place, which will be connected to wall suction. A repeat chest x-ray in the a.m. Incentive spirometry four times a day. Nebulized DuoNeb solution four times a day. He will be continued on Rocephin 1 gram IV daily and vancomycin 1500 milligrams a day. Symbicort 160/4.5 two puffs twice daily added. Pain control with Hydrocodone p.r.n. A consult with thoracic surgery to evaluate pneumothorax. Thank you Dr. Robertson for this consultation. MD IRAJ Wolf/WICHO /6:02 PM /6:28 PM
[2017-12-25] MEDS: DOCUSATE SODIUM 50 MG/SENNA 8.6 MG TAB PO SCH (21:15)
[2017-12-25] MEDS: VANCOMYCIN 1,500 MG/NS 500 ML IV SCH ×2 (21:16)
[2017-12-26] VITALS (12 sets, daily range): BP systolic 124–147; BP diastolic 79–98; PULSE 78–97; RESP 18–20; TEMP 97.3–98.8; O2SAT 83–95
[2017-12-26] MEDS: RESP: ALBUTEROL 2.5 MG/IPRATROPIUM 0.5 MG NEB (SCH) INH ×4 (03:51→21:06)
[2017-12-26] MEDS: methylPREDNISolone SOD SUCC 40 MG/1 ML VIAL IV PUSH SCH ×3 (04:37→21:24)
[2017-12-26] MEDS: SODIUM CHLOR 0.9% 1000 ML INJ 1,000 ML IV SCH ×2 (04:37→13:34)
[2017-12-26] MEDS: cefTRIAXone INJ 1,000 MG in SODIUM CHLORIDE 0.9% INJ 100 ML IV SCH (04:37)
[2017-12-26] MEDS: ENOXAPARIN SODIUM 40 MG/0.4 ML SYRINGE SQ SCH (04:37)
[2017-12-26] MEDS: HYDROmorphone HCL PF 2 MG/ML VIAL IV PUSH PRN ×4 (04:38→21:26)
[2017-12-26] MEDS ORDERED: AZITHROMYCIN INJ 500 MG in SODIUM CHLOR 0.9% 250 ML INJ 250 ML IV SCH (05:00)
[2017-12-26] MEDS: TIOTROPIUM BROMIDE 18 MCG INH INH SCH (08:30)
[2017-12-26] MEDS: VANCOMYCIN 1,500 MG/NS 500 ML IV SCH ×4 (08:30→21:11)
[2017-12-26] MEDS: BUDESONIDE-FORMOTEROL 160/4.5 MCG INHALER INH SCH ×2 (08:31→21:33)
[2017-12-26] MEDS: METOPROLOL TARTRATE 25 MG TAB PO SCH ×2 (08:32→21:31)
[2017-12-26] MEDS: guaiFENesin E.R. 600 MG TAB PO SCH ×2 (08:32→21:31)
[2017-12-26] MEDS: DOCUSATE SODIUM 50 MG/SENNA 8.6 MG TAB PO SCH ×2 (08:32→21:32)
[2017-12-26] MEDS: SODIUM CHLORIDE 0.9% FLUSH 10 ML FLUSH IV FLUSH SCH ×2 (08:45→21:32)
[2017-12-26 08:47] LABS: AUTOMATED NEUTROPHIL # 13.8 TH/MM3 (1.8-7.7); BASOPHIL % 0.1 % (0.0-2.0); LYMPHOCYTE # 0.6 TH/MM3 (1.0-4.8); MEAN CELL VOLUME 84.3 FL (80.0-100.0); MEAN CORPUSCULAR HEMOGLOBIN 27.4 PG (27.0-34.0); MEAN CORPUSCULAR HGB CONC 32.5 % (32.0-36.0); MEAN PLATELET VOLUME 7.6 FL (7.0-11.0); MONO % 5.1 % (0.0-8.0); MONOCYTE # 0.8 TH/MM3 (0-0.9); NEUT % 90.8 % (16.0-70.0); PLATELET COUNT 224 TH/MM3 (150-450); RED BLOOD COUNT 4.39 MIL/MM3 (4.50-5.90); RED CELL DISTRIBUTION WIDTH 15.2 % (11.6-17.2); WHITE BLOOD COUNT 15.2 TH/MM3 (4.0-11.0)
[2017-12-26 09:18] LABS: BICARBONATE 24.7 MEQ/L (21.0-32.0); CALCIUM 8.7 MG/DL (8.5-10.1); CREATININE 0.64 MG/DL (0.60-1.30)
--- NOTE | 2017-12-26 12:41 | HHI.PR ---
Subjective Remarks The patient said that he has been coughing up a little bit of mucus. He wanted to work with physical therapy. No other acute complaints. Discussed with nursing. Objective Vitals Vital Signs Date Time Temp Pulse Resp B/P (MAP) Pulse Ox O2 Delivery O2 Flow Rate FiO2 12/26/17 09:39 Nasal Cannula 3.00 12/26/17 08:00 98.1 89 20 145/98 (114) 95 12/26/17 04:00 97.8 80 18 124/91 (102) 92 12/26/17 04:00 91 12/26/17 00:38 Nasal Cannula 3.00 12/26/17 00:00 78 12/25/17 23:19 84 18 118/78 (91) 92 12/25/17 21:24 97.7 86 18 138/65 (89) 92 12/25/17 20:15 Nasal Cannula 2.00 12/25/17 20:00 Nasal Cannula 2.00 12/25/17 17:12 20 12/25/17 16:00 83 12/25/17 16:00 98.3 91 20 119/77 (91) 94 I/O 12/25/17 12/25/17 12/25/17 12/26/17 12/26/17 12/26/17 07:00 15:00 23:00 07:00 15:00 23:00 Intake Total 2350 ml 1500 ml 980 ml 999 ml Output Total 1300 ml 2600 ml 800 ml Balance 1050 ml 1500 ml 980 ml -1601 ml -800 ml Intake Oral 480 ml IV Total 2350 ml 1500 ml 500 ml 999 ml Output Urine Total 1300 ml 2600 ml 800 ml # Voids 2 6 Result Diagram: 12/26/17 0800 12/26/17 0800 Imaging Last Impressions Chest X-Ray 12/25/17 0357 Signed Impressions: Service Date/Time: Monday, December 25, 2017 04:03 - CONCLUSION: Left-sided pneumothorax is identified. Joshua Bryant MD Objective Remarks GENERAL: Resting comfortably in bed. SKIN: No rashes, ecchymoses or lesions. Cool and dry. HEAD: Atraumatic. Normocephalic. No temporal or scalp tenderness. EYES: Pupils equal round and reactive. Extraocular motions intact. No scleral icterus. No injection or drainage. ENT: Nose without bleeding, purulent drainage or septal hematoma. Throat without erythema, tonsillar hypertrophy or exudate. Uvula midline. Airway patent. NECK: Trachea midline. No JVD or lymphadenopathy. Supple, nontender, no meningeal signs. CARDIOVASCULAR: Regular rate and rhythm without murmurs, gallops, or rubs. RESPIRATORY: Bilateral crackles in the bases. Decreased breath sounds on the left. GASTROINTESTINAL: Abdomen soft, non-tender, nondistended. No hepato-splenomegaly , or palpable masses. No guarding. MUSCULOSKELETAL: Extremities without clubbing, cyanosis, or edema. No joint tenderness, effusion, or edema noted. NEUROLOGICAL: Awake and alert. Cranial nerves II through XII intact. Motor and sensory grossly within normal limits. Normal speech. Procedures Chest tube placement Medications and IVs Current Medications Medications (Trade) Dose Ordered Sig/Susanna Route Start Time Stop Time Status Last Admin (NS Flush) 2 ml UNSCH PRN IV FLUSH 12/25/17 05:30 (NS Flush) 2 ml BID IV FLUSH 12/25/17 09:00 12/25/17 21:16 Ceftriaxone Sodium 1000 mg/ Sodium Chloride 100 ml @ 200 mls/hr Q24H IV 12/26/17 04:00 12/26/17 04:37 (Tylenol) 650 mg Q4H PRN PO 12/25/17 05:30 (Duoneb Neb) 1 ampule Q6HR NEB INH 12/25/17 10:00 12/26/17 09:37 (Duoneb Neb) 1 ampule Q4HR NEB PRN INH 12/25/17 05:30 (Lovenox Inj) 40 mg Q24H SQ 12/25/17 05:30 12/26/17 04:37 (Norvasc) 10 mg DAILY PO 12/25/17 09:00 12/26/17 08:32 (Lopressor) 25 mg Q12HR PO 12/25/17 09:00 12/26/17 08:32 (Spiriva Inh) 18 mcg DAILY INH 12/25/17 09:00 12/26/17 08:30 (Symbicort 160-4.5 Mcg Inh) 2 puff Q12HR INH 12/25/17 09:00 12/26/17 08:31 (Mucinex Er) 600 mg BID PO 12/25/17 09:00 12/26/17 08:32 Pharmacy Profile Note 0 ml @ 0 mls/hr UNSCH OTHER 12/25/17 06:15 (SoluMEDROL INJ) 40 mg Q8HR IV PUSH 12/25/17 06:15 12/26/17 04:37 (Dilaudid Pf Inj) 1 mg Q4H PRN IV PUSH 12/25/17 06:15 12/26/17 08:41 Sodium Chloride 1,000 ml @ 125 mls/hr Q8H IV 12/25/17 06:15 12/26/17 04:37 Miscellaneous Information SPECIFIC LAB TO BE DRAWN:[facility]... ONCE ONCE .XX 12/27/17 07:45 12/27/17 07:46 Vancomycin HCl 1500 mg/Sodium Chloride 515 ml @ 257.5 mls/ hr Q12H IV 12/25/17 20:00 12/26/17 08:30 (Mimi-Colace) 1 tab BID PO 12/25/17 21:00 12/26/17 08:32 (Roxicodone) 5 mg Q4H PRN PO 12/25/17 14:30 (Roxicodone) 10 mg Q4H PRN PO 12/25/17 14:30 12/26/17 10:54 A/P Assessment and Plan Pneumothorax Chest x-ray significant for left-sided pneumothorax. Status post chest tube placement in the emergency department with improvement of the pneumothorax. Pulmonary consult appreciated. - continue chest tube. - CT surgery consult pending. - pain control with a bowel regimen. Hospital-acquired pneumonia/Sepsis/ COPD/pulmonary fibrosis Patient febrile, tachycardic with leukocytosis. Patient discharged from the hospital on 12/18 where he was treated for pneumonia with azithromycin and cefepime. Chest x-ray significant for coarse parenchymal opacities with increasing alveolar and interstitial infiltrate at the right lung base. - Vancomycin/cefepime. - IV fluids. - Appreciate pulmonary recommendations. - sputum and blood cultures. - IV steroids. - oxygen and nebs as needed. Lactic acidosis Secondary to above. - Continue treatment as above. - Repeat lactic acid level. PPx: Saleem Parikh DO Dec 26, 2017 12:40
--- NOTE | 2017-12-26 19:18 | HHI.PR ---
Subjective Remarks Feels better. Chest tube in and has Min Leak. On O2 4 L Objective Vital Signs Date Time Temp Pulse Resp B/P (MAP) Pulse Ox O2 Delivery O2 Flow Rate FiO2 12/26/17 16:03 92 Venturi Mask 50 12/26/17 16:00 97.3 96 20 137/79 (98) 83 12/26/17 12:30 92 12/26/17 12:00 98.4 92 20 136/90 (105) 84 12/26/17 11:59 91 12/26/17 09:39 Nasal Cannula 3.00 12/26/17 08:00 98.1 89 20 145/98 (114) 95 12/26/17 08:00 Nasal Cannula 3.00 12/26/17 04:00 97.8 80 18 124/91 (102) 92 12/26/17 04:00 91 12/26/17 00:38 Nasal Cannula 3.00 12/26/17 00:00 78 12/25/17 23:19 84 18 118/78 (91) 92 12/25/17 21:24 97.7 86 18 138/65 (89) 92 12/25/17 20:15 Nasal Cannula 2.00 12/25/17 20:00 Nasal Cannula 2.00 I/O 12/25/17 12/25/17 12/25/17 12/26/17 12/26/17 12/26/17 07:00 15:00 23:00 07:00 15:00 23:00 Intake Total 2350 ml 1500 ml 980 ml 999 ml 1515 ml 480 ml Output Total 1300 ml 2600 ml 1450 ml 550 ml Balance 1050 ml 1500 ml 980 ml -1601 ml 65 ml -70 ml Intake Oral 480 ml 480 ml IV Total 2350 ml 1500 ml 500 ml 999 ml 1515 ml Output Urine Total 1300 ml 2600 ml 1450 ml 550 ml # Voids 2 6 Result Diagram: 12/26/17 0800 12/26/17 0800 Objective Remarks GENERAL: This is a well-built middle-aged man who is alert and in no acute distress. No pallor or icterus, no clubbing or edema. HEAD, EYES, EARS, NOSE, THROAT: Head normocephalic. The pupils are reactive and equal. Tongue is moist. Nasal mucosa . Throat clear. NECK: The neck is supple. No venous distention. CHEST: Decreased breath sounds over the left mid and upper chest with occasional crackles of the lung bases. HEART: Heart sounds are regular. S1 and S2. No murmur. No S3. ABDOMEN: Abdomen soft and scaphoid without masses. No organomegaly or tenderness. The bowel sounds are active. EXTREMITIES: No lesions. No edema. NEUROLOGIC: Reflexes are normal with no gross motor deficits. SKIN: No lesions. Assessment and Plan Assessment and Plan IMPRESSION: 1. Recurrent left pneumothorax with hypoxemia. 2. COPD and chronic bronchitis with bronchiectasis. 3. Basilar pulmonary fibrosis. 4. Hypertension. Plan : 1. Cont Chest tube to wall suction 2. CXR in am 3. O2 3 L. 4. Duonebs qid. 5. Continue antibiotics, Vanco/ Cefipime 6. CBC,BMP Prerna Santos MD Dec 26, 2017 19:18
--- NOTE | 2017-12-26 21:40 | HHI.PR ---
Subjective Remarks NOT SEEN Objective Vitals Vital Signs Date Time Temp Pulse Resp B/P (MAP) Pulse Ox O2 Delivery O2 Flow Rate FiO2 12/26/17 21:10 93 Venturi Mask 6.00 50 12/26/17 16:03 92 Venturi Mask 50 12/26/17 16:00 95 12/26/17 16:00 97.3 96 20 137/79 (98) 83 12/26/17 12:30 92 12/26/17 12:00 98.4 92 20 136/90 (105) 84 12/26/17 11:59 91 12/26/17 09:39 Nasal Cannula 3.00 12/26/17 08:00 98.1 89 20 145/98 (114) 95 12/26/17 08:00 Nasal Cannula 3.00 12/26/17 04:00 97.8 80 18 124/91 (102) 92 12/26/17 04:00 91 12/26/17 00:38 Nasal Cannula 3.00 12/26/17 00:00 78 12/25/17 23:19 84 18 118/78 (91) 92 I/O 12/25/17 12/25/17 12/25/17 12/26/17 12/26/17 12/26/17 07:00 15:00 23:00 07:00 15:00 23:00 Intake Total 2350 ml 1500 ml 980 ml 999 ml 1515 ml 480 ml Output Total 1300 ml 2600 ml 1450 ml 562 ml Balance 1050 ml 1500 ml 980 ml -1601 ml 65 ml -82 ml Intake Oral 480 ml 480 ml IV Total 2350 ml 1500 ml 500 ml 999 ml 1515 ml Output Urine Total 1300 ml 2600 ml 1450 ml 550 ml Chest Tube Drainage Total 12 ml # Voids 2 6 Result Diagram: 12/26/17 0800 12/26/17 0800 Imaging Last Impressions Chest X-Ray 12/25/17 0352 Signed Impressions: Service Date/Time: Monday, December 25, 2017 04:03 - CONCLUSION: Left-sided pneumothorax is identified. Joshua Bryant MD Objective Remarks GENERAL: Resting comfortably in bed. SKIN: No rashes, ecchymoses or lesions. Cool and dry. HEAD: Atraumatic. Normocephalic. No temporal or scalp tenderness. EYES: Pupils equal round and reactive. Extraocular motions intact. No scleral icterus. No injection or drainage. ENT: Nose without bleeding, purulent drainage or septal hematoma. Throat without erythema, tonsillar hypertrophy or exudate. Uvula midline. Airway patent. NECK: Trachea midline. No JVD or lymphadenopathy. Supple, nontender, no meningeal signs. CARDIOVASCULAR: Regular rate and rhythm without murmurs, gallops, or rubs. RESPIRATORY: Bilateral crackles in the bases. Decreased breath sounds on the left. GASTROINTESTINAL: Abdomen soft, non-tender, nondistended. No guarding. MUSCULOSKELETAL: Extremities without clubbing, cyanosis, or edema. No joint tenderness, effusion, or edema noted. NEUROLOGICAL: Awake and alert. Cranial nerves II through XII intact. Motor and sensory grossly within normal limits. Normal speech. Procedures Chest tube placement A/P Problem List: (1) Recurrent spontaneous pneumothorax ICD Code: J93.83 - Other pneumothorax Status: Acute Assessment and Plan Pneumothorax Chest x-ray significant for left-sided pneumothorax. Status post chest tube placement in the emergency department with improvement of the pneumothorax. Pulmonary consult appreciated. - continue chest tube. - CT surgery consult pending. - pain control with a bowel regimen. Hospital-acquired pneumonia/Sepsis/ COPD/pulmonary fibrosis Patient febrile, tachycardic with leukocytosis. Patient discharged from the hospital on 12/18 where he was treated for pneumonia with azithromycin and cefepime. Chest x-ray significant for coarse parenchymal opacities with increasing alveolar and interstitial infiltrate at the right lung base. - Vancomycin/cefepime. - IV fluids. - Appreciate pulmonary recommendations. - sputum and blood cultures. - IV steroids. - oxygen and nebs as needed. Lactic acidosis Secondary to above. - Continue treatment as above. - Repeat lactic acid level. PPx: Mannie Jenkins MD Dec 26, 2017 21:40
--- NOTE | 2017-12-26 22:50 | RADRPT ---
EXAM DATE/TIME: 12/26/2017 22:34 [facility] COMPARISON: CHEST SINGLE AP, December 25, 2017, 4:53. INDICATIONS : Shortness of breath- Evaluate ET tube placement. MEDICAL HISTORY : Pulmonary Fibrosis SURGICAL HISTORY : None. ENCOUNTER: Subsequent ACUITY: 1 day PAIN SCORE: 5/10 LOCATION: Bilateral chest FINDINGS: Today's exam is compared to the prior study. The left chest tube remains in place. There continues to be a small left pneumothorax with approximately 1.4 cm of separation. This is slightly increased com pared to the prior exam. There continues to be chronic interstitial lung disease bilaterally without significant change. The heart size is stable. There is no definite pleural effusions. CONCLUSION: 1. There continues to be a left-sided pneumothorax which is mildly increased compared to the prior ex am. 2. There continues to be diffuse bilateral interstitial lung disease without significant change. Duke Michel MD on December 26, 2017 at 22:46 Board Certified Radiologist. This report was verified electronically.
[2017-12-27] VITALS (11 sets, daily range): BP systolic 128–155; BP diastolic 85–94; PULSE 73–97; RESP 17–20; TEMP 97.6–98.8; O2SAT 91–95
[2017-12-27] MEDS: SODIUM CHLOR 0.9% 1000 ML INJ 1,000 ML IV SCH ×2 (01:06→09:16)
[2017-12-27] MEDS: HYDROmorphone HCL PF 2 MG/ML VIAL IV PUSH PRN ×4 (01:52→23:43)
[2017-12-27] MEDS: RESP: ALBUTEROL 2.5 MG/IPRATROPIUM 0.5 MG NEB (SCH) INH ×4 (02:53→21:07)
[2017-12-27] MEDS: cefTRIAXone INJ 1,000 MG in SODIUM CHLORIDE 0.9% INJ 100 ML IV SCH (04:32)
[2017-12-27] MEDS: SODIUM CHLORIDE 0.9% FLUSH 10 ML FLUSH IV FLUSH PRN (04:35)
[2017-12-27] MEDS: methylPREDNISolone SOD SUCC 40 MG/1 ML VIAL IV PUSH SCH ×3 (04:35→20:48)
[2017-12-27] MEDS: ENOXAPARIN SODIUM 40 MG/0.4 ML SYRINGE SQ SCH (04:37)
[2017-12-27] MEDS: SODIUM CHLORIDE 0.9% FLUSH 10 ML FLUSH IV FLUSH SCH ×2 (07:35→20:48)
[2017-12-27] MEDS ORDERED: PHARMACY ORDERED LAB ONE (07:45)
[2017-12-27] MEDS: DOCUSATE SODIUM 50 MG/SENNA 8.6 MG TAB PO SCH ×2 (08:06→20:41)
[2017-12-27] MEDS: VANCOMYCIN 1,500 MG/NS 500 ML IV SCH ×6 (08:06→23:53)
[2017-12-27] MEDS: METOPROLOL TARTRATE 25 MG TAB PO SCH ×2 (08:06→20:46)
[2017-12-27] MEDS: guaiFENesin E.R. 600 MG TAB PO SCH ×2 (08:06→20:41)
[2017-12-27] MEDS: BUDESONIDE-FORMOTEROL 160/4.5 MCG INHALER INH SCH ×2 (08:09→20:48)
[2017-12-27] MEDS: TIOTROPIUM BROMIDE 18 MCG INH INH SCH (08:09)
--- NOTE | 2017-12-27 08:25 | PD.CAR.PN ---
CVT Progress Note Subjective/Hospital Course: Patient known to our service, s/p VATS bleb resection and pleuradesis in the past. He presents again with recurrent loculated left PTX treated adequately with a pigtail placed by IR. Objective: Vital Signs Date Time Temp Pulse Resp B/P (MAP) Pulse Ox O2 Delivery O2 Flow Rate FiO2 12/27/17 04:05 98.1 89 20 128/86 (100) 91 12/27/17 04:00 79 12/27/17 00:00 84 12/26/17 23:38 98.1 97 18 147/86 (106) 91 12/26/17 21:10 93 Venturi Mask 6.00 50 12/26/17 20:17 98.8 92 18 135/83 (100) 91 12/26/17 20:00 91 Venturi Mask 50 12/26/17 20:00 89 12/26/17 16:03 92 Venturi Mask 50 12/26/17 16:00 95 12/26/17 16:00 97.3 96 20 137/79 (98) 83 12/26/17 12:30 92 12/26/17 12:00 98.4 92 20 136/90 (105) 84 12/26/17 11:59 91 12/26/17 09:39 Nasal Cannula 3.00 Result Diagram: 12/26/17 0800 12/26/17 0800 Imaging: Last Impressions Chest X-Ray 12/26/17 0000 Signed Impressions: Service Date/Time: Tuesday, December 26, 2017 22:34 - CONCLUSION: 1. There continues to be a left-sided pneumothorax which is mildly increased compared to the prior exam. 2. There continues to be diffuse bilateral interstitial lung disease without significant change. Duke Michel MD Cardiovascular: RRR Pulmonary: CTA GI/: NABS, NT CT: minimal drainage, small air leak Plan: 47y/o male presents with recurrent left PTX s/p bleb resection and pleuradesis. He is NOT a good surgical candidate as he has severe COPD and his lung tissue is diffusely emphysematous and friable. Recommend current therapy with pigtail to suction. Will follow. Kati Blunt MD Dec 27, 2017 08:25
--- NOTE | 2017-12-27 14:42 | HHI.PR ---
Subjective Remarks Follow-up pneumothorax and pneumonia. Continues to have pleuritic chest pain from coughing. Requesting antitussives. Discussed with RN Objective Vitals Vital Signs Date Time Temp Pulse Resp B/P (MAP) Pulse Ox O2 Delivery O2 Flow Rate FiO2 12/27/17 12:00 97.9 97 20 155/88 (110) 91 12/27/17 09:06 91 Aerosol Mask 6.00 50 12/27/17 08:24 97.6 96 17 155/94 (114) 91 12/27/17 04:05 98.1 89 20 128/86 (100) 91 12/27/17 04:00 79 12/27/17 00:00 84 12/26/17 23:38 98.1 97 18 147/86 (106) 91 12/26/17 21:10 93 Venturi Mask 6.00 50 12/26/17 20:17 98.8 92 18 135/83 (100) 91 12/26/17 20:00 91 Venturi Mask 50 12/26/17 20:00 89 12/26/17 16:03 92 Venturi Mask 50 12/26/17 16:00 95 12/26/17 16:00 97.3 96 20 137/79 (98) 83 I/O 12/26/17 12/26/17 12/26/17 12/27/17 12/27/17 12/27/17 07:00 15:00 23:00 07:00 15:00 23:00 Intake Total 999 ml 1515 ml 480 ml 1575 ml 500 ml Output Total 2600 ml 1450 ml 562 ml 4025 ml 1500 ml Balance -1601 ml 65 ml -82 ml -2450 ml -1000 ml Intake Oral 480 ml 960 ml IV Total 999 ml 1515 ml 615 ml 500 ml Output Urine Total 2600 ml 1450 ml 550 ml 4025 ml 1500 ml Chest Tube Drainage Total 12 ml # Bowel Movements 0 Result Diagram: 12/26/17 0800 12/26/17 0800 Imaging Last Impressions Chest X-Ray 12/26/17 0000 Signed Impressions: Service Date/Time: Tuesday, December 26, 2017 22:34 - CONCLUSION: 1. There continues to be a left-sided pneumothorax which is mildly increased compared to the prior exam. 2. There continues to be diffuse bilateral interstitial lung disease without significant change. Duke Michel MD Objective Remarks GENERAL: Resting comfortably in bed currently on nasal cannula. SKIN: No rashes, ecchymoses or lesions. Cool and dry. CARDIOVASCULAR: Regular rate and rhythm without murmurs, gallops, or rubs. RESPIRATORY: No wheezes with Decreased breath sounds on the left. GASTROINTESTINAL: Abdomen soft, non-tender, nondistended. No guarding. MUSCULOSKELETAL: Extremities without clubbing, cyanosis, or edema. No joint tenderness, effusion, or edema noted. NEUROLOGICAL: Awake and alert. Cranial nerves II through XII intact. Motor and sensory grossly within normal limits. Normal speech. Procedures Chest tube placement A/P Problem List: (1) Recurrent spontaneous pneumothorax ICD Code: J93.83 - Other pneumothorax Status: Acute Assessment and Plan Recurrent Pneumothorax. Status post bleb resection and pleurodesis during last admission Chest x-ray significant for left-sided pneumothorax. Status post chest tube placement in the emergency department with improvement of the pneumothorax. Pulmonary consult appreciated. - continue chest tube. Repeat chest x-ray in the morning -Status post CT surgery evaluation. Not a surgical candidate. Continue chest tube management. - pain control with a bowel regimen. Hospital-acquired pneumonia/Sepsis/ COPD/pulmonary fibrosis Patient febrile, tachycardic with leukocytosis. Patient discharged from the hospital on 12/18 where he was treated for pneumonia with azithromycin and cefepime. Chest x-ray significant for coarse parenchymal opacities with increasing alveolar and interstitial infiltrate at the right lung base. -Rocephin will be switched to Zosyn and continue vancomycin - IV fluids. - Appreciate pulmonary recommendations. - sputum and blood cultures. - IV steroids will taper. - oxygen and nebs as needed. Lactic acidosis Secondary to above. - Continue treatment as above. -Clinically stable PPx: SCDs and Lovenox Mannie Mcclain MD Dec 27, 2017 14:42
[2017-12-27] MEDS: PIPERACIL-TAZO 3.375 GM PREMIX 50 ML IV SCH ×2 (15:18→20:48)
--- NOTE | 2017-12-27 20:08 | HHI.PR ---
Subjective Remarks Feels OK. Chest tube in and has Min Leak. On O2 4 LRpt CXR shows a larger Pneumothorax Objective Vital Signs Date Time Temp Pulse Resp B/P (MAP) Pulse Ox O2 Delivery O2 Flow Rate FiO2 12/27/17 16:00 95 12/27/17 16:00 97.9 91 20 141/85 (103) 94 12/27/17 15:38 94 Nasal Cannula 4.00 12/27/17 12:00 89 12/27/17 12:00 97.9 97 20 155/88 (110) 91 12/27/17 09:06 91 Aerosol Mask 6.00 50 12/27/17 08:24 97.6 96 17 155/94 (114) 91 12/27/17 07:54 78 12/27/17 04:05 98.1 89 20 128/86 (100) 91 12/27/17 04:00 79 12/27/17 00:00 84 12/26/17 23:38 98.1 97 18 147/86 (106) 91 12/26/17 21:10 93 Venturi Mask 6.00 50 12/26/17 20:17 98.8 92 18 135/83 (100) 91 I/O 12/26/17 12/26/17 12/26/17 12/27/17 12/27/17 12/27/17 07:00 15:00 23:00 07:00 15:00 23:00 Intake Total 999 ml 1515 ml 480 ml 1575 ml 1220 ml Output Total 2600 ml 1450 ml 562 ml 4025 ml 3500 ml 550 ml Balance -1601 ml 65 ml -82 ml -2450 ml -2280 ml -550 ml Intake Oral 480 ml 960 ml 720 ml IV Total 999 ml 1515 ml 615 ml 500 ml Output Urine Total 2600 ml 1450 ml 550 ml 4025 ml 3500 ml 550 ml Chest Tube Drainage Total 12 ml # Bowel Movements 0 Result Diagram: 12/26/17 0800 12/26/17 0800 Objective Remarks GENERAL: This is a well-built middle-aged man who is alert and in no acute distress. No pallor or icterus, or edema. HEAD, EYES, EARS, NOSE, THROAT: Head normocephalic. The pupils are reactive and equal. Tongue is moist. Nasal mucosa . Throat clear. NECK: The neck is supple. No venous distention. CHEST: Decreased breath sounds over the left mid and upper chest with occasional crackles of the lung bases. HEART: Heart sounds are regular. S1 and S2. No murmur. No S3. ABDOMEN: Abdomen soft and scaphoid without masses. No organomegaly or tenderness. The bowel sounds are active. EXTREMITIES: No lesions. No edema. NEUROLOGIC: Reflexes are normal with no gross motor deficits. SKIN: No lesions. Assessment and Plan Assessment and Plan IMPRESSION: 1. Recurrent left pneumothorax with hypoxemia. 2. COPD and chronic bronchitis with bronchiectasis. 3. Basilar pulmonary fibrosis. 4. Hypertension. Plan : 1. Cont Chest tube to wall suction 2. Rpt CXR in am 3. O2 3 L. 4. Duonebs qid. 5. Continue antibiotics, Cefipime 6. IS at bedside q3h Prerna Santos MD Dec 27, 2017 20:08
[2017-12-28] VITALS (10 sets, daily range): BP systolic 130–153; BP diastolic 63–94; PULSE 73–91; RESP 18–20; TEMP 97.4–100.1; O2SAT 86–94
[2017-12-28] MEDS: PIPERACIL-TAZO 3.375 GM PREMIX 50 ML IV SCH ×4 (03:14→21:23)
[2017-12-28] MEDS: RESP: ALBUTEROL 2.5 MG/IPRATROPIUM 0.5 MG NEB (SCH) INH ×4 (03:33→21:04)
[2017-12-28] MEDS: ENOXAPARIN SODIUM 40 MG/0.4 ML SYRINGE SQ SCH (05:30)
[2017-12-28] MEDS: HYDROmorphone HCL PF 2 MG/ML VIAL IV PUSH PRN ×4 (05:45→21:23)
--- NOTE | 2017-12-28 06:15 | RADRPT ---
EXAM DATE/TIME: 12/28/2017 05:29 [facility] COMPARISON: CHEST SINGLE AP, December 26, 2017, 22:34. INDICATIONS : Evaluate for pneumothorax. MEDICAL HISTORY : Pulmonary fibrosis. SURGICAL HISTORY : None. ENCOUNTER: Subsequent ACUITY: 4 - 6 days PAIN SCORE: Non-responsive. LOCATION: Left chest FINDINGS: Portable AP view of the chest demonstrates a normal-sized cardiac silhouette. Small bore pigtail pleu ral catheter remains present in the left mid hemithorax. There is a small left pneumothorax, stable f rom the prior study. There are diffuse airspace opacities throughout the right lung and in the left m id and lower lung zone. Lungs stable and is present at the left lung apex. CONCLUSION: 1. Stable small left pneumothorax. Left chest tube remains present. 2. Stable bilateral airspace opacities. Arnoldo Cheatham MD on December 28, 2017 at 6:12 Board Certified Radiologist. This report was verified electronically.
[2017-12-28] MEDS: methylPREDNISolone SOD SUCC 40 MG/1 ML VIAL IV PUSH SCH ×2 (06:22→13:48)
[2017-12-28] MEDS: SODIUM CHLORIDE 0.9% FLUSH 10 ML FLUSH IV FLUSH SCH ×2 (06:53→21:00)
[2017-12-28 07:14] LABS: CREATININE 0.66 MG/DL (0.60-1.30)
[2017-12-28] MEDS: VANCOMYCIN 1,500 MG/NS 500 ML IV SCH ×4 (08:04→15:44)
[2017-12-28] MEDS: DOCUSATE SODIUM 50 MG/SENNA 8.6 MG TAB PO SCH ×2 (08:04→21:23)
[2017-12-28] MEDS: guaiFENesin E.R. 600 MG TAB PO SCH ×2 (08:05→21:23)
[2017-12-28] MEDS: METOPROLOL TARTRATE 25 MG TAB PO SCH ×2 (08:08→21:23)
[2017-12-28] MEDS: BUDESONIDE-FORMOTEROL 160/4.5 MCG INHALER INH SCH ×2 (08:12→21:00)
[2017-12-28] MEDS: TIOTROPIUM BROMIDE 18 MCG INH INH SCH (08:12)
--- NOTE | 2017-12-28 10:41 | HHI.PR ---
Subjective Remarks Follow-up pneumothorax. Patient has no new complaints. Dw RN Objective Vitals Vital Signs Date Time Temp Pulse Resp B/P (MAP) Pulse Ox O2 Delivery O2 Flow Rate FiO2 12/28/17 09:58 Simple Mask 6.00 50 12/28/17 09:51 93 Simple Mask 50 12/28/17 08:00 73 12/28/17 08:00 98.8 79 18 143/80 (101) 93 12/28/17 04:00 98.8 76 20 140/94 (109) 93 12/28/17 04:00 85 12/28/17 00:00 90 12/28/17 00:00 100.1 80 20 138/91 (107) 94 12/27/17 21:20 95 Aerosol Mask 6.00 50 12/27/17 20:00 73 12/27/17 20:00 98.8 87 20 146/91 (109) 94 12/27/17 20:00 92 Simple Mask 6.00 12/27/17 16:00 95 12/27/17 16:00 97.9 91 20 141/85 (103) 94 12/27/17 15:38 94 Nasal Cannula 4.00 12/27/17 12:00 89 12/27/17 12:00 97.9 97 20 155/88 (110) 91 I/O 12/27/17 12/27/17 12/27/17 12/28/17 12/28/17 12/28/17 07:00 15:00 23:00 07:00 15:00 23:00 Intake Total 1575 ml 1220 ml 550 ml 1135 ml Output Total 4025 ml 3500 ml 550 ml 3200 ml Balance -2450 ml -2280 ml 0 ml -2065 ml Intake Oral 960 ml 720 ml 570 ml IV Total 615 ml 500 ml 550 ml 565 ml Output Urine Total 4025 ml 3500 ml 550 ml 3200 ml # Bowel Movements 0 0 Result Diagram: 12/26/17 0800 12/28/17 0553 Imaging Last Impressions Chest X-Ray 12/28/17 0600 Signed Impressions: Service Date/Time: Thursday, December 28, 2017 05:29 - CONCLUSION: 1. Stable small left pneumothorax. Left chest tube remains present. 2. Stable bilateral airspace opacities. Arnoldo Cheatham MD Objective Remarks GENERAL: Resting comfortably in bed currently on nasal cannula. SKIN: No rashes, ecchymoses or lesions. Cool and dry. CARDIOVASCULAR: Regular rate and rhythm without murmurs, gallops, or rubs. RESPIRATORY: No wheezes with Decreased breath sounds on the left. GASTROINTESTINAL: Abdomen soft, non-tender, nondistended. No guarding. MUSCULOSKELETAL: Extremities without clubbing, cyanosis, or edema. No joint tenderness, effusion, or edema noted. NEUROLOGICAL: Awake and alert. Cranial nerves II through XII intact. Motor and sensory grossly within normal limits. Normal speech. Procedures Chest tube placement A/P Problem List: (1) Recurrent spontaneous pneumothorax ICD Code: J93.83 - Other pneumothorax Status: Acute Assessment and Plan Recurrent Pneumothorax. Status post bleb resection and pleurodesis during last admission Chest x-ray significant for left-sided pneumothorax. Status post chest tube placement in the emergency department with improvement of the pneumothorax. Pulmonary consult appreciated. - continue chest tube on suction. Repeat chest x-ray - Status post CT surgery evaluation. Not a surgical candidate. Continue chest tube management. - pain control with a bowel regimen. Hospital-acquired pneumonia/Sepsis/ COPD/pulmonary fibrosis Patient febrile, tachycardic with leukocytosis. Patient discharged from the hospital on 12/18 where he was treated for pneumonia with azithromycin and cefepime. Chest x-ray significant for coarse parenchymal opacities with increasing alveolar and interstitial infiltrate at the right lung base. -Ct Zosyn and vancomycin - IV fluids. - Appreciate pulmonary recommendations. - sputum and blood cultures NGTD. - Switch to po steroids. - oxygen and nebs as needed. Lactic acidosis Secondary to above. -Continue treatment as above. -Clinically stable PPx: SCDs and Lovenox Mannie Mcclain MD Dec 28, 2017 10:41
[2017-12-28] MEDS: guaiFENesin/CODEINE SYRUP 200 MG/20 MG/10 ML CUP PO PRN ×2 (13:51→21:23)
[2017-12-28] MEDS ORDERED: PHARMACY ORDERED LAB ONE (15:45)
--- NOTE | 2017-12-28 20:07 | HHI.PR ---
Subjective Remarks Feels OK. Chest tube in and has a Leak. On O2 4 L. Rpt CXR shows a larger Pneumothorax. Not a candidate for Surgery. Objective Vital Signs Date Time Temp Pulse Resp B/P (MAP) Pulse Ox O2 Delivery O2 Flow Rate FiO2 12/28/17 16:08 98.2 86 18 130/77 (94) 86 12/28/17 15:21 93 Aerosol Mask 6.00 50 12/28/17 12:00 97.4 91 18 141/63 (89) 86 12/28/17 09:58 Simple Mask 6.00 50 12/28/17 09:51 93 Simple Mask 50 12/28/17 08:00 73 12/28/17 08:00 98.8 79 18 143/80 (101) 93 12/28/17 04:00 98.8 76 20 140/94 (109) 93 12/28/17 04:00 85 12/28/17 00:00 90 12/28/17 00:00 100.1 80 20 138/91 (107) 94 12/27/17 21:20 95 Aerosol Mask 6.00 50 I/O 12/27/17 12/27/17 12/27/17 12/28/17 12/28/17 12/28/17 07:00 15:00 23:00 07:00 15:00 23:00 Intake Total 1575 ml 1220 ml 550 ml 1135 ml 1320 ml Output Total 4025 ml 3500 ml 550 ml 3200 ml 1550 ml Balance -2450 ml -2280 ml 0 ml -2065 ml -230 ml Intake Oral 960 ml 720 ml 570 ml 720 ml IV Total 615 ml 500 ml 550 ml 565 ml 600 ml Output Urine Total 4025 ml 3500 ml 550 ml 3200 ml 1550 ml # Bowel Movements 0 0 Result Diagram: 12/26/17 0800 12/28/17 0553 Objective Remarks GENERAL: This is a well-built middle-aged man who is alert and in no acute distress. No pallor or icterus, or edema. HEAD, EYES, EARS, NOSE, THROAT: Head normocephalic. The pupils are reactive and equal. Tongue is moist. Nasal mucosa clear, Throat clear. NECK: The neck is supple. No venous distention. CHEST: Decreased breath sounds over the left mid and upper chest with occasional crackles of the lung bases. HEART: Heart sounds are regular. S1 and S2. No murmur. No S3. ABDOMEN: Abdomen soft and scaphoid without masses. No organomegaly or tenderness. The bowel sounds are active. EXTREMITIES: No lesions. No edema. NEUROLOGIC: Reflexes are normal with no gross motor deficits. SKIN: No lesions. Assessment and Plan Assessment and Plan IMPRESSION: 1. Recurrent left pneumothorax with hypoxemia. 2. COPD and chronic bronchitis with bronchiectasis. 3. Basilar pulmonary fibrosis. 4. Hypertension. Plan : 1. Cont Chest tube to wall suction 2. Rpt CXR in am, CBC,BMP 3. O2 3 L. 4. Duonebs qid. 5. Continue antibiotics,Zosyn. 6. IS at bedside q3h 7. D/C Vancomycin Prerna Santos MD Dec 28, 2017 20:07
--- NOTE | 2017-12-28 21:45 | RADRPT ---
EXAM DATE/TIME: 12/28/2017 21:28 [facility] COMPARISON: CHEST SINGLE AP, December 28, 2017, 5:29. INDICATIONS : Left side chest tube came out. MEDICAL HISTORY : Pulmonary Fibrosis. SURGICAL HISTORY : None. ENCOUNTER: Initial ACUITY: 1 day PAIN SCORE: 0/10 LOCATION: Left chest FINDINGS: The previously noted a small left chest tube has been removed. There continues to be a left-sided pne umothorax with approximately 2.8 cm of separation along the lateral aspect of the left hemithorax. Th is is increased compared to the prior study. There continues to be chronic interstitial lung disease characteristic of pulmonary fibrosis. This pattern is not significant change compared to the prior ex am. Heart size is stable. No evidence of pleural effusions. CONCLUSION: 1. The left sided chest tube has been removed. 2. There continues to be a left-sided pneumothorax with 2.8 cm separation laterally. This is increase d compared to the prior study. 3. Bilateral pulmonary fibrosis without significant change. Duke Michel MD on December 28, 2017 at 21:40 Board Certified Radiologist. This report was verified electronically.
[2017-12-29] VITALS (17 sets, daily range): BP systolic 115–176; BP diastolic 74–101; PULSE 68–128; RESP 14–34; TEMP 97.9–98.6; O2SAT 79–100
[2017-12-29] MEDS: PIPERACIL-TAZO 3.375 GM PREMIX 50 ML IV SCH ×4 (01:42→21:03)
[2017-12-29] MEDS: HYDROmorphone HCL PF 2 MG/ML VIAL IV PUSH PRN ×5 (01:43→21:33)
[2017-12-29] MEDS ORDERED: MIDAZOLAM HCL 5 MG/ML VIAL (1 ML) ONE (04:08)
[2017-12-29] MEDS: RESP: ALBUTEROL 2.5 MG/IPRATROPIUM 0.5 MG NEB (SCH) INH ×2 (04:41→09:29)
--- NOTE | 2017-12-29 05:09 | PD.CONS ---
HPI Service Critical Care Medicine Consult Requested By Primary Care Physician No Primary Care Physician History of Present Illness 47-year-old male with a past medical history significant for pulmonary fibrosis , COPD and hypertension and VATS/bleb resection/pleurodesis by Dr. Amanda on 08/23 is admitted to hospital with increased shortness of breath. Chart documentation for the past 24 hours prior to admission he has had significant fever/chills and increasing shortness of breath. Patient was found to have a left-sided pneumothorax on chest x-ray. The chest tube was placed and patient was admitted to medicine with pulmonary consultation in place. Today shortly after midnight the chest tube was found at the patient's bedside the dislodged, patient was in severe respiratory distress, diaphoretic and hypoxemic. The stat x-ray showed reaccumulation of left-sided pneumothorax and emergent chest tube was placed. Review of Systems ROS Unable to obtain due to patient's distress Past Family Social History Allergies: Coded Allergies: No Known Allergies (Verified Allergy, Unknown, 12/12/17) Past Medical History Hypertension Pulmonary fibrosis COPD History of recurrent pneumothorax Past Surgical History VATS/bleb resection/pleurodesis by Dr. 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 [guaiFENesin ER] 600 MG Tabcr 600 Mg PO BID [Budeson-Formot 160-4.5 Mcg Inh] 60 PUFF Aero 2 Puff INH Q12HR Oxycodone-Acetaminophen 5-325 (Oxycodone HCl/Acetaminophen) 5 Mg-325 Mg Tablet 1 Tab PO Q4H PRN DO NOT USE THIS MEDICINE IF YOU WILL DRIVE A CAR OR USE A MACHINE, ONLY USE IT WHEN RESTING AT HOME. Norvasc (Amlodipine Besylate) 10 Mg Tab 10 Mg PO DAILY Ventolin Hfa 18 GM Inh (Albuterol Sulfate) 90 Mcg/Act Aer 2 Puff INH Q4-6H PRN Metoprolol Tartrate 25 Mg Tab 25 Mg PO Q12HR Spiriva Handihaler (Tiotropium Inh) 18 Mcg Cap 18 Mcg INH DAILY 1 capsule = 18 mcg Active Ordered Medications Current Medications Medications (Trade) Dose Ordered Sig/Susanna Route PRN Reason Start Time Stop Time Status Last Admin Dose Admin Sodium Chloride (NS Flush) 2 ml UNSCH PRN IV FLUSH FLUSH AFTER USING IV ACCESS 12/25/17 05:30 12/27/17 04:35 Sodium Chloride (NS Flush) 2 ml BID IV FLUSH 12/25/17 09:00 12/28/17 21:00 Acetaminophen (Tylenol) 650 mg Q4H PRN PO TEMPERATURE > 101 F 12/25/17 05:30 Albuterol/ Ipratropium (Duoneb Neb) 1 ampule Q6HR NEB INH 12/25/17 10:00 12/29/17 04:41 Albuterol/ Ipratropium (Duoneb Neb) 1 ampule Q4HR NEB PRN INH SHORTNESS OF BREATH 12/25/17 05:30 Enoxaparin Sodium (Lovenox Inj) 40 mg Q24H SQ 12/25/17 05:30 12/29/17 05:40 Amlodipine Besylate (Norvasc) 10 mg DAILY PO 12/25/17 09:00 12/28/17 08:04 Metoprolol Tartrate (Lopressor) 25 mg Q12HR PO 12/25/17 09:00 12/28/17 21:23 Tiotropium [place] (Spiriva Inh) 18 mcg DAILY INH 12/25/17 09:00 12/28/17 08:12 Budesonide/ Formoterol Fumarate (Symbicort 160-4.5 Mcg Inh) 2 puff Q12HR INH 12/25/17 09:00 12/28/17 21:00 Guaifenesin (Mucinex Er) 600 mg BID PO 12/25/17 09:00 12/28/17 21:23 Pharmacy Profile Note 0 ml @ 0 mls/hr UNSCH OTHER 12/25/17 06:15 Hydromorphone HCl (Dilaudid Pf Inj) 1 mg Q4H PRN IV PUSH breakthrough pain 12/25/17 06:15 12/29/17 01:43 Senna/Docusate Sodium (Mimi-Colace) 1 tab BID PO 12/25/17 21:00 12/28/17 21:23 Oxycodone HCl (Roxicodone) 5 mg Q4H PRN PO pain 3-5 12/25/17 14:30 Oxycodone HCl (Roxicodone) 10 mg Q4H PRN PO pain 6-10 12/25/17 14:30 12/28/17 18:00 Piperacillin Sod/ Tazobactam Sod 50 ml @ 100 mls/hr Q6H IV 12/27/17 15:00 12/29/17 01:42 Guaifenesin/ Codeine Phosphate (Robitussin Ac 200-20 Mg/10 ml Liq) 10 ml Q4H PRN PO COUGH 12/27/17 14:45 12/28/17 21:23 Prednisone (Deltasone) 40 mg DAILY PO 12/29/17 09:00 Miscellaneous Information SPECIFIC LAB TO BE DRAWN:[facility] TROUGH DATE TO BE DR... ONCE ONCE .XX 12/29/17 15:45 12/29/17 15:46 Family History Denies family history of coronary artery disease/diabetes mellitus Social History Quit tobacco and alcohol in June. Denies illicit drugs. Physical Exam Vital Signs Vital Signs Date Time Temp Pulse Resp B/P (MAP) Pulse Ox O2 Delivery O2 Flow Rate FiO2 12/29/17 04:44 100 Non-Rebreather 15.00 12/29/17 04:02 79 15.00 100 12/29/17 00:00 Simple Mask 6.00 12/29/17 00:00 93 Simple Mask 6.00 12/29/17 00:00 76 20 150/94 (112) 93 12/28/17 23:43 83 12/28/17 20:00 98.2 86 20 153/87 (109) 93 12/28/17 20:00 91 Simple Mask 6.00 12/28/17 19:40 75 12/28/17 16:08 98.2 86 18 130/77 (94) 86 12/28/17 15:21 93 Aerosol Mask 6.00 50 12/28/17 12:00 97.4 91 18 141/63 (89) 86 12/28/17 09:58 Simple Mask 6.00 50 12/28/17 09:51 93 Simple Mask 50 12/28/17 08:00 73 12/28/17 08:00 98.8 79 18 143/80 (101) 93 Physical Exam GENERAL: Well-nourished, well-developed patient. In moderate respiratory distress SKIN: Warm and dry. HEAD: Normocephalic. EYES: No scleral icterus. No injection or drainage. NECK: Supple, trachea midline. No JVD or lymphadenopathy. CARDIOVASCULAR: Regular rate and rhythm without murmurs, gallops, or rubs. RESPIRATORY: Breath sounds decreased on the left. Positive for accessory muscle use. GASTROINTESTINAL: Abdomen soft, non-tender, nondistended. MUSCULOSKELETAL: No cyanosis, or edema. BACK: Nontender without obvious deformity. NEURO EXAM: GCS: 15 Mental Status: The patient is alert and oriented to person, place. Laboratory Laboratory Tests Test 12/28/17 05:53 12/28/17 15:40 12/29/17 03:50 Creatinine 0.66 Estimat Glomerular Filtration Rate 155 Vancomycin Level Trough 14.3 Blood Gas Puncture Site RT RADIAL Blood Gas Patient Temperature 98.6 Blood Gas HCO3 31 Blood Gas Base Excess 5.1 Blood Gas Oxygen Saturation 77 Arterial Blood pH 7.33 Arterial Blood Partial Pressure CO2 60 Arterial Blood Partial Pressure O2 50 Arterial Blood Oxygen Content 15.0 Arterial Blood Carboxyhemoglobin 1.2 Arterial Blood Methemoglobin 0.9 Blood Gas Hemoglobin 13.8 Oxygen Delivery Device NRB Blood Gas Liter Flow 15 Blood Gas Inspired Oxygen 100 Date/Time Source Procedure Growth Status 12/25/17 04:01 Blood Peripheral Aerobic Blood Culture - Preliminary NO GROWTH IN 3 DAYS Resulted 12/25/17 04:01 Blood Peripheral Anaerobic Blood Culture - Preliminary NO GROWTH IN 3 DAYS Resulted 12/25/17 04:01 Nasal Washing Influenza Types A,B Antigen (JUAN MANUEL) - Final NEGATIVE FOR FLU A AND B ANTIGEN.... Complete Result Diagram: 12/26/17 0800 12/28/17 0553 Imaging Last 24 hours Impressions Chest X-Ray 12/29/17 0000 Signed Impressions: Service Date/Time: December 04:26 - CONCLUSION: Left chest tube placement with interval decrease in size but not complete resolution of the left pneumothorax. Arnoldo Cheatham MD Chest X-Ray 12/29/17 0000 Signed Impressions: Service Date/Time: December 03:54 - CONCLUSION: 1. Increased size of the left-sided pneumothorax. 2. Stable diffuse right lung airspace consolidation. Arnoldo Cheatham MD Septic Shock Reassessment Septic shock perfusion: reassessment completed Assessment and Plan Assessment and Plan Pneumothorax - Emergent chest tube placement at the bedside - Continues low wall suction - Repeat CXR daily - Further management per pulmonary service Pulmonary fibrosis - Per tobacco baler Hypertension - Norvasc - Metoprolol DVT GI prophylaxis - Teds SCDs - Lovenox - Pepcid Critical Care: The total critical care time was 35 minutes. Time to perform other separately billable procedures was not included in the critical care time. Elvin Lau MD Dec 29, 2017 5:09 am
--- NOTE | 2017-12-29 05:12 | RADRPT ---
EXAM DATE/TIME: 12/29/2017 03:54 [facility] COMPARISON: CHEST SINGLE AP, December 29, 2017, 4:26. CHEST SINGLE AP, December 28, 2017, 21:28. INDICATIONS : Short of breath. MEDICAL HISTORY : Pulmonary Fibrosis. SURGICAL HISTORY : None. ENCOUNTER: Subsequent ACUITY: 4 - 6 days PAIN SCORE: Non-responsive. LOCATION: Bilateral chest FINDINGS: 2 AP views of the chest demonstrate a normal-sized cardiac silhouette. There is a left-sided pneumoth orax, increased in size from the most recent prior examination. There is airspace opacity within the remaining aerated left lung. There is slight rightward shift of the mediastinum. There is diffuse rig ht lung airspace consolidation. No pleural effusion is visualized. CONCLUSION: 1. Increased size of the left-sided pneumothorax. 2. Stable diffuse right lung airspace consolidation. Arnoldo Cheatham MD on December 29, 2017 at 5:09 Board Certified Radiologist. This report was verified electronically.
--- NOTE | 2017-12-29 05:19 | RADRPT ---
EXAM DATE/TIME: 12/29/2017 04:26 [facility] COMPARISON: CHEST SINGLE AP, December 29, 2017, 3:54. INDICATIONS : Post chest tube placement. Short of breath. MEDICAL HISTORY : Pulmonary fibrosis. SURGICAL HISTORY : None. ENCOUNTER: Subsequent ACUITY: 4/6 days PAIN SCORE: Nonresponsive LOCATION: Bilateral chest FINDINGS: Portable AP view of the chest demonstrates a normal-sized cardiac silhouette. Small bore pigtail left pleural catheter has been placed with decrease size of the pneumothorax. Pleural line remains visual ized indicating small residual pneumothorax. Staple line is present the apex of the left hemithorax. There is diffuse bilateral air space opacity. No pleural effusion is present. CONCLUSION: Left chest tube placement with interval decrease in size but not complete resolution of the left pneu mothorax. Arnoldo Cheatham MD on December 29, 2017 at 5:16 Board Certified Radiologist. This report was verified electronically.
[2017-12-29] MEDS: ENOXAPARIN SODIUM 40 MG/0.4 ML SYRINGE SQ SCH (05:40)
--- NOTE | 2017-12-29 06:35 | HHI.PR ---
Addendum to Inpatient Note Addendum Reason: Additional Documentation Additional Information Halicat Note S: Resident team was called for Hal[facility] at approximately 0330 on 12/29/17. Upon arrival medical staff reported this patient was currently in the hospital for pneumothorax and pneumonia. They state he had somehow lost his chest tube around 2030 (approximately 7 hours earlier). Reports primary team had been made aware at that time, chest x-ray was obtained, the decision was made to not replace the chest tube at that time but to be notified if there were acute changes or O2 saturation had decreased. At time of Halicat the patient was in obvious respiratory distress, had O2 saturations of 79%, however a separate pulse oximeter recorded an SPO2 of 98%. Patient could not speak in full sentences time of interview. He did respond yes that he had chest pain on the left and he had significant difficulty breathing. O: BP: 223/130 pulse: 135 RR: 40s SpO2: 98% GENERAL: Seated up, O2 mask on, obvious rapid breathing SKIN: Warm, diaphoretic. HEAD: Atraumatic. Normocephalic. ENT: No nasal bleeding or discharge. Mucous membranes pink and moist. NECK: Trachea midline. No JVD. CARDIOVASCULAR: Elevated rate, normal rhythm. RESPIRATORY: Significant respiratory distress, decreased breath sounds on the left side, no cyanosis A/P: 47-year-old male admitted for pneumothorax and pneumonia. Had recently lost his chest tube approximate 7 hours prior to Halicat. At time of Halicat patient had obvious signs of respiratory distress, decreased breath sounds on left side where chest tube had been lost, did not demonstrate signs/symptoms of tension pneumothorax prior to transfer. -Stat ABG PaO2 50 PCO2 60 Ph7.33 HCO3 31 -Wet read on stat CXR showed significantly worsened left pneumothorax -Net Sql Developer stat consulted for emergent chest tube placement *Following initial Halicat: Resident team remained with patient until arrival of roller maker. When roller maker was present the patient's BP had decreased to the 110s and he had mild tracheal deviation. At this time an emergent chest tube placement was performed and tube was placed on suction. Respiratory distress began to improve shortly soon after chest tube placement. Wet read on follow up CXR showed improved pneumothorax and chest tube placement. Saleem Matias MD R1 Dec 29, 2017 06:35
[2017-12-29] MEDS: DOCUSATE SODIUM 50 MG/SENNA 8.6 MG TAB PO SCH ×2 (08:32→21:04)
[2017-12-29] MEDS: predniSONE 20 MG TAB PO SCH (08:32)
[2017-12-29] MEDS: guaiFENesin E.R. 600 MG TAB PO SCH ×2 (08:32→21:04)
[2017-12-29] MEDS: FAMOTIDINE 20 MG/2 ML VIAL IV PUSH SCH ×2 (08:32→21:04)
[2017-12-29] MEDS: SODIUM CHLORIDE 0.9% FLUSH 10 ML FLUSH IV FLUSH SCH ×2 (08:33→21:00)
[2017-12-29] MEDS: METOPROLOL TARTRATE 25 MG TAB PO SCH ×2 (08:33→21:04)
--- NOTE | 2017-12-29 11:45 | HHI.CCPN ---
History - Height: 187.96 cm Weight: 87.5 kg Allergies: Coded Allergies: No Known Allergies (Verified Allergy, Unknown, 12/12/17) Major 24 Hour Events Status post pigtail chest tube placement by Dr. phillips. Currently complaining of pain 10 out of 10. Increasing hydromorphone from 1 mg every 4 hours as needed every 2 hours as needed for pain. Drips Drips None Vent Settings Respiratory Data Nonrebreather saturations 100% IV Lines IV Lines Remarks Peripheral IV Tubes and Drains Chest Tube #1 Date/Location Left pigtail catheter placement placed 12/[address] Lau at -40 cm H2O Exam Patient Data - Vital Signs Date Time Temp Pulse Resp B/P (MAP) Pulse Ox O2 Delivery O2 Flow Rate FiO2 12/29/17 10:00 87 12/29/17 09:35 100 Nasal Cannula 12.00 12/29/17 08:00 98.5 102 26 120/74 (89) 99 12/29/17 08:00 102 12/29/17 07:00 100 Non-Rebreather 12.00 12/29/17 06:00 98 12/29/17 04:44 100 Non-Rebreather 15.00 12/29/17 04:02 79 15.00 100 12/29/17 04:00 128 12/29/17 04:00 98.1 128 30 176/101 (126) 100 12/29/17 03:30 97 100 12/29/17 00:00 Simple Mask 6.00 12/29/17 00:00 93 Simple Mask 6.00 12/29/17 00:00 76 20 150/94 (112) 93 12/28/17 23:43 83 12/28/17 20:00 98.2 86 20 153/87 (109) 93 12/28/17 20:00 91 Simple Mask 6.00 12/28/17 19:40 75 12/28/17 16:08 98.2 86 18 130/77 (94) 86 12/28/17 15:21 93 Aerosol Mask 6.00 50 12/28/17 12:00 97.4 91 18 141/63 (89) 86 Intake & Output In accurate I's nose Medications Amlodipine 10 mg by mouth daily Metoprolol tartrate we 5 mg by mouth twice a day Acetaminophen 650 mg by mouth every 6 hours when necessary fever pain 1-2 Oxycodone 5 mill grams every fours. Pain 3-5 Oxycodone 10 mg by mouth every 4 hours when necessary pain 6-10 Hydromorphone 1 mg every 2 hours when necessary breakthrough pain Budesonide/formoterol 160/4.5 2 puffs twice a day Tiotropium 18 g inhalation daily Albuterol nebs every 2 hours. Dyspnea Lidocaine patch Constitutional General appearance: uncomfortable Nutritional status: normal Respiratory Respiratory effort: normal Chest appearance: Normal Ausculation: Bilateral: Normal Percussion: Bilateral: Normal Tactile fremitus: absent Cardiovascular Rhythm: regular Heart sounds: NORMAL: S1, S2 Gastrointestinal Abdomen description: Normal Aortic pulsation: Normal Bowel sounds: LUQ: Normal, LLQ: Normal, RUQ: Normal, RLQ: Normal Abdominal bruits: Left: None, Right: None, Central: None Skin Induration: No Hair: Nails: Normal Neurologic Cranial nerves: Normal: CN I: Olfactory, CN II: Optic, CN III: Oculomotor, CN IV: Trochlear, CN V: Trigeminal, CN : Abducent, CN VII: Facial, CN VIII: Acoustic, CN IX: Glossopharyngeal, CN X: Vagus, CN XI: Accessory, CN XII: Hypoglossal Sensation: Normal: Light touch, Pinprick, Proprioception, Vibratory Results CBC/BMP: 12/26/17 0800 12/28/17 0553 Micro/ID Microbiology Date/Time Source Procedure Growth Status 12/25/17 04:01 Blood Peripheral Aerobic Blood Culture - Preliminary NO GROWTH IN 4 DAYS Resulted 12/25/17 04:01 Blood Peripheral Anaerobic Blood Culture - Preliminary NO GROWTH IN 4 DAYS Resulted 12/25/17 04:01 Nasal Washing Influenza Types A,B Antigen (JUAN MANUEL) - Final NEGATIVE FOR FLU A AND B ANTIGEN.... Complete Imaging Report Remarks Last Impressions Chest X-Ray 12/29/17 0000 Signed Impressions: Service Date/Time: December 04:26 - CONCLUSION: Left chest tube placement with interval decrease in size but not complete resolution of the left pneumothorax. Anroldo Cheatham MD Daily Goals Daily Goals: Yes: VTE/PVD Prophylaxis Assessment/Plan Assessment/Plan Diagnosis: (1) Migraine headache ICD Code: G43.909 - Migraine, unspecified, not intractable, without status migrainosus Status: Chronic (2) Spontaneous pneumothorax ICD Code: J93.83 - Other pneumothorax Status: Acute (3) Recurrent spontaneous pneumothorax ICD Code: J93.83 - Other pneumothorax Status: Acute (4) COPD exacerbation ICD Code: J44.1 - Chronic obstructive pulmonary disease with (acute) exacerbation Status: Acute (5) Pulmonary fibrosis ICD Code: J84.10 - Pulmonary fibrosis, unspecified Status: Chronic - Neuro/Psych: History of migraine headache Acetaminophen 650 mg by mouth every 6 hours when necessary fever/pain 1-2 Oxycodone 5 mg by mouth every 4 hours when necessary pain 3-5 Oxycodone 10 mg by mouth every 4 hours. Pain 6 out of Hydromorphone 1 mg every every 2 hours when necessary breakthrough pain CV: Hypertension Continue nimodipine 10 mg daily and metoprolol tartrate 25 mg twice a day for hypertension Resp: Recurrent left pneumothorax History of VATS/pneumonectomy/bleb Dr. Blunt 09/06 Pulmonary fibrosis - Dr. Santos COPD Currently nonrebreather maintain saturations equal to 95% Left pigtail chest tube placed emergently this morning due to dislodgment overnight Increased suction to -[id number] Message left with Dr. Blunt is currently in surgery to evaluate again today Recheck chest x-ray in a.m. Budesonide/formoterol 160/4.5 - 2 puffs twice a day Tiotropium daily Albuterol aerosols every 2 hours. Breakthrough dyspnea GI: Advance diet as tolerated Famotidine for GI prophylaxis Docusate sodium/senna 1 tablet twice a day for bowel regimen : No indication for Ochoa catheter Endo: Chronic prednisone use Current prednisone 40 mill grams daily/10 milligrams daily at home. Renal: Creatinine currently within normal limits Heme: Follow-up CBC today ID: Currently on vancomycin and piperacillin/tazobactam MSK: Physical therapy evaluate and treat FEN: Replace select lites as clinically indicated Access - Utilize peripheral IV. Central line if indicated Prophylaxis - GI - famotidine - DVT - SCD/enoxaparin Time Spend with Patient Critical Care Minutes: 35 Problem Qualifiers (1) Migraine headache: Qualified Codes: G43.009 - Migraine without aura, not intractable, without status migrainosus Darius Royal MD Dec 29, 2017 11:45
[2017-12-29 11:50] LABS: AUTOMATED NEUTROPHIL # 10.3 TH/MM3 (1.8-7.7); BASOPHIL % 0.3 % (0.0-2.0); HEMATOCRIT 37.2 % (39.0-51.0); HEMOGLOBIN 12.3 GM/DL (13.0-17.0); LYMPH % 6.9 % (9.0-44.0); LYMPHOCYTE # 0.8 TH/MM3 (1.0-4.8); MEAN CELL VOLUME 83.9 FL (80.0-100.0); MEAN CORPUSCULAR HEMOGLOBIN 27.9 PG (27.0-34.0); MEAN CORPUSCULAR HGB CONC 33.2 % (32.0-36.0); MEAN PLATELET VOLUME 7.8 FL (7.0-11.0); MONO % 2.8 % (0.0-8.0); MONOCYTE # 0.3 TH/MM3 (0-0.9); PLATELET COUNT 210 TH/MM3 (150-450); RED BLOOD COUNT 4.43 MIL/MM3 (4.50-5.90); RED CELL DISTRIBUTION WIDTH 14.8 % (11.6-17.2); WHITE BLOOD COUNT 11.5 TH/MM3 (4.0-11.0)
[2017-12-29] MEDS: LIDOCAINE HCL 5% PATCH T-DERMAL SCH (11:56)
[2017-12-29 11:59] LABS: INTERNATIONAL NORMALIZED RATIO 1.1 RATIO
[2017-12-29 12:12] LABS: ALBUMIN 2.8 GM/DL (3.4-5.0); AST (GOT) 31 U/L (15-37); BICARBONATE 31.9 MEQ/L (21.0-32.0); BLOOD UREA NITROGEN 13 MG/DL (7-18); CALCIUM 8.5 MG/DL (8.5-10.1); CHLORIDE 98 MEQ/L (98-107); CREATININE 0.72 MG/DL (0.60-1.30); GLOMERULAR FILTRATION RATE 141 ML/MIN (>89); GLUCOSE,RANDOM 93 MG/DL (74-106); SODIUM (NA) 136 MEQ/L (136-145)
[2017-12-29 12:16] LABS: ALKALINE PHOSPHATASE 75 U/L (45-117); ALT (GPT) 34 U/L (12-78); PHOSPHORUS 2.6 MG/DL (2.5-4.9); TOTAL BILIRUBIN ADULT 1.1 MG/DL (0.2-1.0); TOTAL PROTEIN 7.5 GM/DL (6.4-8.2)
--- NOTE | 2017-12-29 13:10 | HHI.PR ---
Subjective Remarks Feels OK. Chest tube fell out and was in distress . Now in ICU and has a New chest tube. Feels better On O2 50 % Mask.. Rpt CXR shows a smaller Pneumothorax. Not a candidate for Surgery. Objective Vital Signs Date Time Temp Pulse Resp B/P (MAP) Pulse Ox O2 Delivery O2 Flow Rate FiO2 12/29/17 12:00 98.6 76 14 127/81 (96) 100 12/29/17 12:00 76 12/29/17 10:00 87 12/29/17 09:35 100 Nasal Cannula 12.00 12/29/17 08:00 98.5 102 26 120/74 (89) 99 12/29/17 08:00 102 12/29/17 07:00 100 Non-Rebreather 12.00 12/29/17 06:00 98 12/29/17 04:44 100 Non-Rebreather 15.00 12/29/17 04:02 79 15.00 100 12/29/17 04:00 128 12/29/17 04:00 98.1 128 30 176/101 (126) 100 12/29/17 03:30 97 100 12/29/17 00:00 Simple Mask 6.00 12/29/17 00:00 93 Simple Mask 6.00 12/29/17 00:00 76 20 150/94 (112) 93 12/28/17 23:43 83 12/28/17 20:00 98.2 86 20 153/87 (109) 93 12/28/17 20:00 91 Simple Mask 6.00 12/28/17 19:40 75 12/28/17 16:08 98.2 86 18 130/77 (94) 86 12/28/17 15:21 93 Aerosol Mask 6.00 50 I/O 12/28/17 12/28/17 12/28/17 12/29/17 12/29/17 12/29/17 07:00 15:00 23:00 07:00 15:00 23:00 Intake Total 1135 ml 1320 ml 50 ml 0 ml Output Total 3200 ml 1550 ml 0 ml Balance -2065 ml -230 ml 50 ml 0 ml Intake Oral 570 ml 720 ml 0 ml IV Total 565 ml 600 ml 50 ml Output Urine Total 3200 ml 1550 ml 0 ml Chest Tube Drainage Total 0 ml # Bowel Movements 0 Result Diagram: 12/29/17 1122 12/29/17 1122 Objective Remarks GENERAL: This is a well-built middle-aged man who is alert and in no acute distress. No pallor or icterus, or edema. HEAD, EYES, EARS, NOSE, THROAT: Head normocephalic. The pupils are reactive and equal. Tongue is moist. Nasal mucosa clear, Throat clear. NECK: The neck is supple. No venous distention. CHEST: Decreased breath sounds over the left mid and upper chest with occasional crackles of the lung bases.Chest Tube is in on left. HEART: Heart sounds are regular. S1 and S2. No murmur. No S3. ABDOMEN: Abdomen soft and scaphoid without masses. No organomegaly or tenderness. The bowel sounds are active. EXTREMITIES: No lesions. No edema. NEUROLOGIC: Reflexes are normal with no gross motor deficits. SKIN: No lesions. Assessment and Plan Assessment and Plan IMPRESSION: 1. Recurrent left pneumothorax with hypoxemia. 2. COPD and chronic bronchitis with bronchiectasis. 3. Basilar pulmonary fibrosis. 4. Hypertension. Plan : 1. Cont Chest tube to wall suction 2. Rpt CXR in am, CBC,BMP 3. O2 5 L. 4. Duonebs qid. 5. Continue antibiotics,Zosyn. 6. IS at bedside q3h 7. D/C Prerna Harmon MD Dec 29, 2017 13:10
[2017-12-29] MEDS: guaiFENesin/CODEINE SYRUP 200 MG/20 MG/10 ML CUP PO PRN ×3 (13:27→23:00)
[2017-12-29] MEDS ORDERED: PHARMACY ORDERED LAB ONE (15:45)
--- NOTE | 2017-12-29 16:45 | PD.CAR.PN ---
CVT Progress Note Subjective/Hospital Course: Patient known to our service, s/p VATS bleb resection and pleuradesis in the past. He presents again with recurrent loculated left PTX treated adequately with a pigtail placed by IR. Objective: Vital Signs Date Time Temp Pulse Resp B/P (MAP) Pulse Ox O2 Delivery O2 Flow Rate FiO2 12/29/17 14:00 71 12/29/17 12:00 98.6 76 14 127/81 (96) 100 12/29/17 12:00 76 12/29/17 10:00 87 12/29/17 09:35 100 Nasal Cannula 12.00 12/29/17 08:00 98.5 102 26 120/74 (89) 99 12/29/17 08:00 102 12/29/17 07:00 100 Non-Rebreather 12.00 12/29/17 06:00 98 12/29/17 04:44 100 Non-Rebreather 15.00 12/29/17 04:02 79 15.00 100 12/29/17 04:00 128 12/29/17 04:00 98.1 128 30 176/101 (126) 100 12/29/17 03:30 97 100 12/29/17 00:00 Simple Mask 6.00 12/29/17 00:00 93 Simple Mask 6.00 12/29/17 00:00 76 20 150/94 (112) 93 12/28/17 23:43 83 12/28/17 20:00 98.2 86 20 153/87 (109) 93 12/28/17 20:00 91 Simple Mask 6.00 12/28/17 19:40 75 Labs: Laboratory Tests Test 12/29/17 06:00 12/29/17 11:22 Nasal Screen MRSA (PCR) MRSA NOT DETECTED (NOT White Blood Count 11.5 TH/MM3 (4.0-11.0) Red Blood Count 4.43 MIL/MM3 (4.50-5.90) Hemoglobin 12.3 GM/DL (13.0-17.0) Hematocrit 37.2 % (39.0-51.0) Mean Corpuscular Volume 83.9 FL (80.0-100.0) Mean Corpuscular Hemoglobin 27.9 PG (27.0-34.0) Mean Corpuscular Hemoglobin Concent 33.2 % (32.0-36.0) Red Cell Distribution Width 14.8 % (11.6-17.2) Platelet Count 210 TH/MM3 (150-450) Mean Platelet Volume 7.8 FL (7.0-11.0) Neutrophils (%) (Auto) 90.0 % (16.0-70.0) Lymphocytes (%) (Auto) 6.9 % (9.0-44.0) Monocytes (%) (Auto) 2.8 % (0.0-8.0) Eosinophils (%) (Auto) 0.0 % (0.0-4.0) Basophils (%) (Auto) 0.3 % (0.0-2.0) Neutrophils # (Auto) 10.3 TH/MM3 (1.8-7.7) Lymphocytes # (Auto) 0.8 TH/MM3 (1.0-4.8) Monocytes # (Auto) 0.3 TH/MM3 (0-0.9) Eosinophils # (Auto) 0.0 TH/MM3 (0-0.4) Basophils # (Auto) 0.0 TH/MM3 (0-0.2) CBC Comment DIFF FINAL Differential Comment Prothrombin Time 11.0 SEC (9.8-11.6) Prothromb Time International Ratio 1.1 RATIO Activated Partial Thromboplast Time 32.6 SEC (24.3-30.1) Blood Urea Nitrogen 13 MG/DL (7-18) Creatinine 0.72 MG/DL (0.60-1.30) Random Glucose 93 MG/DL (74-106) Total Protein 7.5 GM/DL (6.4-8.2) Albumin 2.8 GM/DL (3.4-5.0) Calcium Level 8.5 MG/DL (8.5-10.1) Phosphorus Level 2.6 MG/DL (2.5-4.9) Magnesium Level 2.0 MG/DL (1.5-2.5) Alkaline Phosphatase 75 U/L (45-117) Aspartate Amino Transf (AST/SGOT) 31 U/L (15-37) Alanine Aminotransferase (ALT/SGPT) 34 U/L (12-78) Total Bilirubin 1.1 MG/DL (0.2-1.0) Sodium Level 136 MEQ/L (136-145) Potassium Level 3.8 MEQ/L (3.5-5.1) Chloride Level 98 MEQ/L (98-107) Carbon Dioxide Level 31.9 MEQ/L (21.0-32.0) Anion Gap 6 MEQ/L (5-15) Estimat Glomerular Filtration Rate 141 ML/MIN (>89) Result Diagram: 12/29/17 1122 12/29/17 1122 Imaging: Last 24 hours Impressions Chest X-Ray 12/29/17 0000 Signed Impressions: Service Date/Time: December 04:26 - CONCLUSION: Left chest tube placement with interval decrease in size but not complete resolution of the left pneumothorax. Arnoldo Cheatham MD Chest X-Ray 12/29/17 0000 Signed Impressions: Service Date/Time: December 03:54 - CONCLUSION: 1. Increased size of the left-sided pneumothorax. 2. Stable diffuse right lung airspace consolidation. Arnoldo Cheatham MD Cardiovascular: RRR Telemetry: ST Pulmonary: Coarse BS bilat GI/: Decreased BS, mildly distended CT: small air leak Plan: Continue chest catheter to suction - no role for surgical intervention currently Bilateral consolidation worrisome for diffuse pneumonitis Stim BM Kati Blunt MD Dec 29, 2017 16:44
[2017-12-29] MEDS: AZITHROMYCIN INJ 500 MG in SODIUM CHLOR 0.9% 250 ML INJ 250 ML IV SCH (17:41)
[2017-12-29] MEDS: REMOVE OLD LIDOCAINE PATCH T-DERMAL SCH (21:00)
[2017-12-29] MEDS: BUDESONIDE-FORMOTEROL 160/4.5 MCG INHALER INH SCH (21:00)
[2017-12-29] MEDS ORDERED: BUDESONIDE-FORMOTEROL 160/4.5 MCG INHALER INH SCH (21:00)
[2017-12-30] VITALS (16 sets, daily range): BP systolic 117–135; BP diastolic 68–92; PULSE 64–96; RESP 12–29; TEMP 98–98.6; O2SAT 86–100
[2017-12-30] MEDS: HYDROmorphone HCL PF 2 MG/ML VIAL IV PUSH PRN ×2 (01:00→17:22)
[2017-12-30] MEDS: PIPERACIL-TAZO 3.375 GM PREMIX 50 ML IV SCH ×4 (02:02→20:29)
[2017-12-30] MEDS: ENOXAPARIN SODIUM 40 MG/0.4 ML SYRINGE SQ SCH (05:06)
--- NOTE | 2017-12-30 05:34 | RADRPT ---
EXAM DATE/TIME: 12/30/2017 04:53 [facility] COMPARISON: CT PULMONARY ANGIOGRAM, December 09, 2017, 16:59. INDICATIONS : Evaluate pneumothorax. MEDICAL HISTORY : Pulmonary fibrosis. SURGICAL HISTORY : None. ENCOUNTER: Subsequent ACUITY: 1 week PAIN SCORE: Non-responsive. LOCATION: Bilateral chest FINDINGS: A single view of the chest demonstrates a left-sided chest tube with small left pneumothorax, unchang ed from December. Underlying pulmonary fibrosis. No new consolidation or effusion. CONCLUSION: 1. Small caliber left chest tube with small left pneumothorax unchanged from December 29. Fausto Leyva MD on December 30, 2017 at 5:30 Board Certified Radiologist. This report was verified electronically.
[2017-12-30 06:20] LABS: HEMATOCRIT 34.4 % (39.0-51.0); HEMOGLOBIN 11.5 GM/DL (13.0-17.0); MEAN CORPUSCULAR HGB CONC 33.4 % (32.0-36.0); MEAN PLATELET VOLUME 8.3 FL (7.0-11.0); PLATELET COUNT 190 TH/MM3 (150-450); RED CELL DISTRIBUTION WIDTH 14.7 % (11.6-17.2); WHITE BLOOD COUNT 9.2 TH/MM3 (4.0-11.0)
[2017-12-30 06:37] LABS: BICARBONATE 32.6 MEQ/L (21.0-32.0); CALCIUM 8.1 MG/DL (8.5-10.1); CREATININE 0.61 MG/DL (0.60-1.30)
[2017-12-30] MEDS ORDERED: POTASSIUM CHLORIDE 20 MEQ CONTROLLED RELEASE TAB PO ONE (07:15)
[2017-12-30] MEDS: FAMOTIDINE 20 MG/2 ML VIAL IV PUSH SCH ×2 (08:36→20:29)
[2017-12-30] MEDS: RESP: ALBUTEROL 2.5 MG/IPRATROPIUM 0.5 MG NEB (SCH) NEB ×4 (08:53→19:52)
[2017-12-30] MEDS ORDERED: PROMETHAZINE PO PRN (09:45)
[2017-12-30] MEDS ORDERED: [UNRECOGNIZED DRUG - OTHER] PO PRN (09:45)
[2017-12-30] MEDS: guaiFENesin/CODEINE SYRUP 200 MG/20 MG/10 ML CUP PO PRN ×3 (10:11→22:43)
[2017-12-30] MEDS: METOPROLOL TARTRATE 25 MG TAB PO SCH ×2 (10:12→20:28)
[2017-12-30] MEDS: DOCUSATE SODIUM 50 MG/SENNA 8.6 MG TAB PO SCH ×2 (10:12→20:28)
[2017-12-30] MEDS: guaiFENesin E.R. 600 MG TAB PO SCH ×2 (10:12→20:28)
[2017-12-30] MEDS: BUDESONIDE-FORMOTEROL 160/4.5 MCG INHALER INH SCH ×2 (10:13→20:29)
[2017-12-30] MEDS: predniSONE 20 MG TAB PO SCH (10:13)
[2017-12-30] MEDS: SODIUM CHLORIDE 0.9% FLUSH 10 ML FLUSH IV FLUSH SCH ×2 (10:13→20:29)
[2017-12-30] MEDS: TIOTROPIUM BROMIDE 18 MCG INH INH SCH ×2 (10:14→14:39)
[2017-12-30] MEDS: LIDOCAINE HCL 5% PATCH T-DERMAL SCH (10:15)
--- NOTE | 2017-12-30 10:18 | HHI.CCPN ---
History - Height: 187.96 cm Weight: 89.9 kg Allergies: Coded Allergies: No Known Allergies (Verified Allergy, Unknown, 12/12/17) Major 24 Hour Events 47-year-old male with a past medical history significant for pulmonary fibrosis , COPD and hypertension and VATS/bleb resection/pleurodesis by Dr. Amanda on 08/23 is admitted to hospital with increased shortness of breath. Chart documentation for the past 24 hours prior to admission he has had significant fever/chills and increasing shortness of breath. Patient was found to have a left-sided pneumothorax on chest x-ray. The chest tube was placed and patient was admitted to medicine with pulmonary consultation in place. Today shortly after midnight the chest tube was found at the patient's bedside the dislodged, patient was in severe respiratory distress, diaphoretic and hypoxemic. The stat x-ray showed reaccumulation of left-sided pneumothorax and emergent chest tube was placed. 12/30 - resting in bed on 6 nasal cannula. Complaining of sore throat. Cough. Pneumothorax last left-sided similar size in reviewing chest x-ray this AM. Discussed with Dr. Blunt and patient Drips Drips None Vent Settings Respiratory Data Nasal cannula at 6 L 100% IV Lines IV Lines Remarks Peripheral IV Tubes and Drains Chest Tube #1 Date/Location Left pigtail catheter placement placed 12/[address] Lau at -40 cm H2O Exam Patient Data - Vital Signs Date Time Temp Pulse Resp B/P (MAP) Pulse Ox O2 Delivery O2 Flow Rate FiO2 12/30/17 08:53 97 Nasal Cannula 6.00 12/30/17 06:00 68 12/30/17 04:00 98.6 66 12 128/86 (100) 100 12/30/17 04:00 66 12/30/17 02:00 74 12/30/17 00:00 98.0 64 15 126/84 (98) 90 12/30/17 00:00 64 12/29/17 23:13 94 Partial Rebreather 15.00 12/29/17 22:00 74 12/29/17 21:48 96 Venturi Mask 50.00 12/29/17 20:00 68 12/29/17 20:00 97.9 68 34 115/81 (92) 94 12/29/17 19:00 100 Venturi Mask 5.00 12/29/17 18:00 98 Venturi Mask 6.00 50 12/29/17 18:00 89 12/29/17 16:00 98.0 68 15 118/74 (89) 99 12/29/17 16:00 68 12/29/17 14:00 71 12/29/17 12:00 98.6 76 14 127/81 (96) 100 12/29/17 12:00 76 Intake & Output 12/30/17 12/30/17 12/31/17 15:00 23:00 07:00 Intake Total 20 ml Output Total 650 ml Balance -630 ml IV Total 20 ml Output Urine Total 650 ml # Voids 1 Medications Reviewed in EMR Patient Data Remarks No remarks today Constitutional General appearance: comfortable Nutritional status: normal Respiratory Respiratory effort: normal Chest appearance: left-sided chest tube Ausculation: Left: Diminished throughout, Prolonged expiration, Right: Crackles /rales, Diminished at base Percussion: Bilateral: Normal Tactile fremitus: Cardiovascular Rhythm: regular Heart sounds: NORMAL: S1, S2 Gastrointestinal Abdomen description: Normal Bowel sounds: LUQ: Normal, LLQ: Normal, RUQ: Normal, RLQ: Normal Abdominal bruits: Left: None, Right: None, Central: None Skin Induration: No Nails: Normal Neurologic Cranial nerves: Normal: CN I: Olfactory, CN II: Optic, CN III: Oculomotor, CN IV: Trochlear, CN V: Trigeminal, CN : Abducent, CN VII: Facial, CN VIII: Acoustic, CN IX: Glossopharyngeal, CN X: Vagus, CN XI: Accessory, CN XII: Hypoglossal Sensation: Normal: Light touch, Pinprick, Proprioception, Vibratory Results CBC/BMP: 12/30/17 0440 12/30/17 0440 Micro/ID Microbiology Date/Time Source Procedure Growth Status 12/29/17 18:21 Blood Peripheral Aerobic Blood Culture Pending Received 12/29/17 18:21 Blood Peripheral Anaerobic Blood Culture Pending Received 12/29/17 17:00 Sputum Expectorated Sputum Gram Stain Pending Received 12/29/17 17:00 Sputum Expectorated Sputum Sputum Culture Pending Received 12/29/17 17:00 Urine Catheterized Urine Legionella Antigen Pending Received 12/29/17 17:00 Urine Catheterized Urine Streptococcus pneumoniae Antigen (M Pending Received Imaging Report Remarks Last Impressions Chest X-Ray 12/30/17 0600 Signed Impressions: Service Date/Time: Saturday, December 30, 2017 04:53 - CONCLUSION: 1. Small caliber left chest tube with small left pneumothorax unchanged from December 29. Fausto Leyva MD Daily Goals Daily Goals: Yes: VTE/PVD Prophylaxis Assessment/Plan Assessment/Plan Diagnosis: (1) Migraine headache ICD Code: G43.909 - Migraine, unspecified, not intractable, without status migrainosus Status: Chronic (2) Spontaneous pneumothorax ICD Code: J93.83 - Other pneumothorax Status: Acute (3) Recurrent spontaneous pneumothorax ICD Code: J93.83 - Other pneumothorax Status: Acute (4) COPD exacerbation ICD Code: J44.1 - Chronic obstructive pulmonary disease with (acute) exacerbation Status: Acute (5) Pulmonary fibrosis ICD Code: J84.10 - Pulmonary fibrosis, unspecified Status: Chronic - Neuro/Psych: History of migraine headache Acetaminophen 650 mg by mouth every 6 hours when necessary fever/pain 1-2 Oxycodone 5 mg by mouth every 4 hours when necessary pain 3-5 Oxycodone 10 mg by mouth every 4 hours. Pain 6 out of Hydromorphone 1 mg every every 2 hours when necessary breakthrough pain CV: Hypertension Continue amlodipine 10 mg daily and metoprolol tartrate 25 mg twice a day for hypertension Resp: Recurrent left pneumothorax History of VATS/pneumonectomy/bleb Dr. Blunt 09/06 Pulmonary fibrosis - Dr. Santos COPD Currently 60 L nasal cannula goal to saturations equal to 95% Left pigtail chest tube placed emergently this morning due to dislodgment on 12/29 Increased suction to -[id number]. -70 cm clear yellow past 24 hours Message left with Dr. Blunt is currently in surgery to evaluate again today Recheck chest x-ray in a.m. Budesonide/formoterol 160/4.5 - 2 puffs twice a day Tiotropium daily Albuterol aerosols every 2 hours. Breakthrough dyspnea GI: Advance diet as tolerated/regular diet Famotidine for GI prophylaxis Docusate sodium/senna 1 tablet twice a day for bowel regimen : No indication for Ochoa catheter Endo: Chronic prednisone use Current prednisone 40 mill grams daily/10 milligrams daily at home. Renal: Creatinine currently within normal limits Recheck BMP in a.m. 12/31 Heme: Normocytic anemia Monitor CBC daily. Follow trends ID: Currently on vancomycin and piperacillin/tazobactam Pertinent cultures 12/29 and 12/25 - blood cultures 2 - no growth to date Sputum - 12/29 - Pending Urine Legionella and pneumococcal antigens pending MSK: Physical therapy evaluate and treat FEN: Replace electrolytes as clinically indicated Access - Utilize peripheral IV. Central line if indicated Prophylaxis - GI - famotidine - DVT - SCD/enoxaparin Level II follow-up Problem Qualifiers (1) Migraine headache: Qualified Codes: G43.009 - Migraine without aura, not intractable, without status migrainosus Darius Royal MD Dec 30, 2017 10:18
[2017-12-30] MEDS: BENZOCAINE-MENTHOL (SUGAR FREE) 15 MG-3.6 MG LOZENGE BUCCAL PRN ×2 (17:23→22:43)
[2017-12-30] MEDS: AZITHROMYCIN INJ 500 MG in SODIUM CHLOR 0.9% 250 ML INJ 250 ML IV SCH (17:24)
[2017-12-31] VITALS (14 sets, daily range): BP systolic 113–136; BP diastolic 32–85; PULSE 63–88; RESP 17–23; TEMP 98.1–98.6; O2SAT 90–99
[2017-12-31] MEDS: REMOVE OLD LIDOCAINE PATCH T-DERMAL SCH ×2 (01:22→22:46)
[2017-12-31] MEDS: PIPERACIL-TAZO 3.375 GM PREMIX 50 ML IV SCH ×4 (01:22→20:14)
[2017-12-31] MEDS: RESP: ALBUTEROL 2.5 MG/3 ML NEB (PRN) NEB (03:56)
[2017-12-31] MEDS: ENOXAPARIN SODIUM 40 MG/0.4 ML SYRINGE SQ SCH (04:11)
[2017-12-31] MEDS: guaiFENesin/CODEINE SYRUP 200 MG/20 MG/10 ML CUP PO PRN ×4 (04:16→20:14)
[2017-12-31] MEDS: BENZOCAINE-MENTHOL (SUGAR FREE) 15 MG-3.6 MG LOZENGE BUCCAL PRN (04:17)
--- NOTE | 2017-12-31 06:00 | RADRPT ---
EXAM DATE/TIME: 12/31/2017 04:08 [facility] COMPARISON: CHEST SINGLE AP, December 30, 2017, 4:53. INDICATIONS : Evaluate pneumothorax. MEDICAL HISTORY : Pulmonary fibrosis. SURGICAL HISTORY : None. ENCOUNTER: Subsequent ACUITY: 2 weeks PAIN SCORE: 0/10 LOCATION: Bilateral chest FINDINGS: A single view of the chest demonstrates bilateral pulmonary fibrosis or emphysema. Small caliber left chest tube with small left pneumothorax similar to December 30. No new consolidation or effusion. CONCLUSION: 1. Left chest tube with small left pneumothorax, stable. Underlying pulmonary fibrosis and emphysema. Fausto Leyva MD on December 31, 2017 at 5:58 Board Certified Radiologist. This report was verified electronically.
[2017-12-31 07:22] LABS: HEMATOCRIT 35.7 % (39.0-51.0); HEMOGLOBIN 11.9 GM/DL (13.0-17.0); MEAN CELL VOLUME 84.3 FL (80.0-100.0); MEAN CORPUSCULAR HEMOGLOBIN 28.1 PG (27.0-34.0); MEAN CORPUSCULAR HGB CONC 33.3 % (32.0-36.0); MEAN PLATELET VOLUME 7.9 FL (7.0-11.0); PLATELET COUNT 187 TH/MM3 (150-450); RED BLOOD COUNT 4.23 MIL/MM3 (4.50-5.90); RED CELL DISTRIBUTION WIDTH 14.9 % (11.6-17.2); WHITE BLOOD COUNT 8.5 TH/MM3 (4.0-11.0)
[2017-12-31] MEDS: RESP: ALBUTEROL 2.5 MG/IPRATROPIUM 0.5 MG NEB (SCH) NEB ×4 (07:26→19:25)
[2017-12-31 07:45] LABS: CALCIUM 8.4 MG/DL (8.5-10.1); CREATININE 0.62 MG/DL (0.60-1.30)
[2017-12-31] MEDS: predniSONE 20 MG TAB PO SCH (08:22)
[2017-12-31] MEDS: FAMOTIDINE 20 MG/2 ML VIAL IV PUSH SCH ×2 (08:22→20:14)
[2017-12-31] MEDS: guaiFENesin E.R. 600 MG TAB PO SCH ×2 (08:22→20:14)
[2017-12-31] MEDS: DOCUSATE SODIUM 50 MG/SENNA 8.6 MG TAB PO SCH ×2 (08:22→20:14)
[2017-12-31] MEDS: TIOTROPIUM BROMIDE 18 MCG INH INH SCH (08:23)
[2017-12-31] MEDS: SODIUM CHLORIDE 0.9% FLUSH 10 ML FLUSH IV FLUSH SCH ×2 (08:23→20:14)
[2017-12-31] MEDS: METOPROLOL TARTRATE 25 MG TAB PO SCH ×2 (08:23→20:14)
[2017-12-31] MEDS: BUDESONIDE-FORMOTEROL 160/4.5 MCG INHALER INH SCH ×2 (08:23→20:15)
[2017-12-31] MEDS: LIDOCAINE HCL 5% PATCH T-DERMAL SCH (08:24)
[2017-12-31] MEDS: PHENOL 1.4% SOLN 180 ML BTL OROPHARYNG PRN (08:30)
--- NOTE | 2017-12-31 10:36 | HHI.CCPN ---
History - Height: 187.96 cm Weight: 85.3 kg Allergies: Coded Allergies: No Known Allergies (Verified Allergy, Unknown, 12/12/17) Major 24 Hour Events 47-year-old male with a past medical history significant for pulmonary fibrosis , COPD and hypertension and VATS/bleb resection/pleurodesis by Dr. Amanda on 08/23 is admitted to hospital with increased shortness of breath. Chart documentation for the past 24 hours prior to admission he has had significant fever/chills and increasing shortness of breath. Patient was found to have a left-sided pneumothorax on chest x-ray. The chest tube was placed and patient was admitted to medicine with pulmonary consultation in place. Today shortly after midnight the chest tube was found at the patient's bedside the dislodged, patient was in severe respiratory distress, diaphoretic and hypoxemic. The stat x-ray showed reaccumulation of left-sided pneumothorax and emergent chest tube was placed. 12/30 - resting in bed on 6 nasal cannula. Complaining of sore throat. Cough. Pneumothorax last left-sided similar size in reviewing chest x-ray this AM. Discussed with Dr. Blunt and patient 12/31: Resting in bed on nasal cannula. 6 L. Sore throat better controlled with Chloraseptic [place]. Small left sided pneumothorax similar in size from yesterday. Maintaining positive attitude. Drips Drips None Vent Settings Respiratory Data Nasal cannula at 6 L 100% IV Lines IV Lines Remarks Peripheral IV Tubes and Drains Chest Tube #1 Date/Location Left pigtail catheter placement placed 12/[address] Lau at -40 cm H2O Exam Patient Data - Vital Signs Date Time Temp Pulse Resp B/P (MAP) Pulse Ox O2 Delivery O2 Flow Rate FiO2 12/31/17 10:00 71 12/31/17 08:00 81 12/31/17 08:00 98.4 80 22 136/85 (102) 94 12/31/17 07:32 99 Non-Rebreather 15.00 100 12/31/17 07:00 97 Nasal Cannula 6.00 12/31/17 06:00 71 12/31/17 04:00 74 12/31/17 04:00 98.6 74 23 133/32 (65) 97 12/31/17 02:00 68 12/31/17 00:00 63 12/31/17 00:00 98.3 63 18 133/80 (97) 90 12/30/17 22:00 80 12/30/17 20:00 98.1 80 21 117/74 (88) 100 12/30/17 20:00 80 12/30/17 19:53 94 Nasal Cannula 6.00 12/30/17 19:00 100 Nasal Cannula 6.00 12/30/17 18:00 94 12/30/17 16:50 95 Nasal Cannula 6.00 12/30/17 16:00 98.1 70 17 121/74 (90) 93 12/30/17 16:00 70 12/30/17 14:00 96 12/30/17 12:20 86 Nasal Cannula 7.00 12/30/17 12:00 89 12/30/17 12:00 98.4 89 29 131/68 (89) 86 Patient Data Remarks No remarks today Constitutional General appearance: comfortable Nutritional status: normal Respiratory Respiratory effort: normal Chest appearance: Ausculation: Right: Diminished at base, Bilateral: Crackles/rales Percussion: Bilateral: Normal Tactile fremitus: Cardiovascular Rhythm: regular Heart sounds: NORMAL: S1, S2 Gastrointestinal Abdomen description: Normal Bowel sounds: LUQ: Normal, LLQ: Normal, RUQ: Normal, RLQ: Normal Abdominal bruits: Central: None Skin Induration: No Nails: Normal Neurologic Cranial nerves: Normal: CN II: Optic, CN V: Trigeminal, CN : Abducent, CN VII : Facial, Not tested: CN I: Olfactory, CN III: Oculomotor, CN IV: Trochlear, CN VIII: Acoustic, CN IX: Glossopharyngeal, CN X: Vagus, CN XI: Accessory, CN XII: Hypoglossal Sensation: Normal: Light touch, Pinprick, Proprioception, Vibratory Results CBC/BMP: 12/31/17 0659 12/31/17 0659 Micro/ID Microbiology Date/Time Source Procedure Growth Status 12/29/17 18:21 Blood Peripheral Aerobic Blood Culture - Preliminary NO GROWTH IN 1 DAY Resulted 12/29/17 18:21 Blood Peripheral Anaerobic Blood Culture - Preliminary NO GROWTH IN 1 DAY Resulted 12/30/17 12:00 Sputum Expectorated Sputum Gram Stain - Final Resulted 12/30/17 12:00 Sputum Expectorated Sputum Sputum Culture Pending Resulted 12/29/17 17:00 Urine Catheterized Urine Legionella Antigen - Final PRESUMPTIVE NEGATIVE FOR LEGIONELLA P... Complete 12/29/17 17:00 Urine Catheterized Urine Streptococcus pneumoniae Antigen (M - Final PRESUMPTIVE NEGATIVE FOR STREPTOCOCCU... Complete Imaging Report Remarks Last Impressions Chest X-Ray 12/30/17 0600 Signed Impressions: Service Date/Time: Saturday, December 30, 2017 04:53 - CONCLUSION: 1. Small caliber left chest tube with small left pneumothorax unchanged from December 29. Fausto Leyva MD Daily Goals Daily Goals: Yes: VTE/PVD Prophylaxis Assessment/Plan Assessment/Plan Diagnosis: (1) Migraine headache ICD Code: G43.909 - Migraine, unspecified, not intractable, without status migrainosus Status: Chronic (2) Spontaneous pneumothorax ICD Code: J93.83 - Other pneumothorax Status: Acute (3) Recurrent spontaneous pneumothorax ICD Code: J93.83 - Other pneumothorax Status: Acute (4) COPD exacerbation ICD Code: J44.1 - Chronic obstructive pulmonary disease with (acute) exacerbation Status: Acute (5) Pulmonary fibrosis ICD Code: J84.10 - Pulmonary fibrosis, unspecified Status: Chronic - Neuro/Psych: History of migraine headache Acetaminophen 650 mg by mouth every 6 hours when necessary fever/pain 1-2 Oxycodone 5 mg by mouth every 4 hours when necessary pain 3-5 Oxycodone 10 mg by mouth every 4 hours. Pain 6 out of Hydromorphone 1 mg every every 2 hours when necessary breakthrough pain CV: Hypertension Continue amlodipine 10 mg daily and metoprolol tartrate 25 mg twice a day for hypertension Resp: Recurrent left pneumothorax History of VATS/pneumonectomy/bleb Dr. Blunt 09/06 Pulmonary fibrosis - Dr. Santos COPD Currently 6 L nasal cannula goal to saturations equal to 95% Left pigtail chest tube placed emergently this morning due to dislodgment on 12/29 Increased suction to -[id number]. -70 cm clear yellow past 24 hours Message left with Dr. Blunt is currently in surgery to evaluate again today Recheck chest x-ray in a.m. Budesonide/formoterol 160/4.5 - 2 puffs twice a day Tiotropium daily Albuterol aerosols every 2 hours. Breakthrough dyspnea GI: Advance diet as tolerated/regular diet Famotidine for GI prophylaxis Docusate sodium/senna 1 tablet twice a day for bowel regimen : No indication for Ochoa catheter Endo: Chronic prednisone use Current prednisone 40 mill grams daily/10 milligrams daily at home. Renal: Creatinine currently within normal limits Recheck BMP in a.m. 12/31 Heme: Normocytic anemia Monitor CBC daily. Follow trends ID: Currently on vancomycin and piperacillin/tazobactam Pertinent cultures 12/29 and 12/25 - blood cultures 2 - no growth to date Sputum - 12/29 - Pending Urine Legionella and pneumococcal antigens pending MSK: Physical therapy evaluate and treat FEN: Replace electrolytes as clinically indicated Access - Utilize peripheral IV. Central line if indicated Prophylaxis - GI - famotidine - DVT - SCD/enoxaparin Level II follow-up Problem Qualifiers (1) Migraine headache: Qualified Codes: G43.009 - Migraine without aura, not intractable, without status migrainosus Darius Royal MD Dec 31, 2017 10:36
[2017-12-31] MEDS: AZITHROMYCIN INJ 500 MG in SODIUM CHLOR 0.9% 250 ML INJ 250 ML IV SCH (16:03)
[2018-01-01] VITALS (13 sets, daily range): BP systolic 103–131; BP diastolic 58–88; PULSE 62–80; RESP 17–22; TEMP 97.9–98.4; O2SAT 89–98
[2018-01-01] MEDS: PIPERACIL-TAZO 3.375 GM PREMIX 50 ML IV SCH ×4 (02:20→20:43)
[2018-01-01] MEDS: guaiFENesin/CODEINE SYRUP 200 MG/20 MG/10 ML CUP PO PRN ×4 (04:03→21:26)
[2018-01-01] MEDS: ENOXAPARIN SODIUM 40 MG/0.4 ML SYRINGE SQ SCH ×2 (04:03→04:42)
--- NOTE | 2018-01-01 06:52 | RADRPT ---
EXAM DATE/TIME: 01/01/2018 05:13 [facility] COMPARISON: CHEST SINGLE AP, December 31, 2017, 4:08. INDICATIONS : Follow up pneumothorax. MEDICAL HISTORY : None. SURGICAL HISTORY : None. ENCOUNTER: Subsequent ACUITY: 3 days PAIN SCORE: Non-responsive. LOCATION: Bilateral chest FINDINGS: A single view of the chest demonstrates global cardiomegaly. There is a left chest tube with a stable small left pneumothorax. Bilateral airspace disease, right greater than left is relatively stable. U nderlying emphysema. No new infiltrate or effusion. CONCLUSION: 1. Small caliber left chest tube with stable small left pneumothorax. Underlying pulmonary fibrosis a nd emphysema. No new infiltrate. Fausto Leyva MD on January 01, 2018 at 6:47 Board Certified Radiologist. This report was verified electronically.
[2018-01-01] MEDS: RESP: ALBUTEROL 2.5 MG/IPRATROPIUM 0.5 MG NEB (SCH) NEB ×4 (08:02→20:26)
[2018-01-01] MEDS: LIDOCAINE HCL 5% PATCH T-DERMAL SCH (08:13)
[2018-01-01] MEDS: TIOTROPIUM BROMIDE 18 MCG INH INH SCH (08:16)
[2018-01-01] MEDS: BUDESONIDE-FORMOTEROL 160/4.5 MCG INHALER INH SCH ×2 (08:16→20:44)
[2018-01-01] MEDS: DOCUSATE SODIUM 50 MG/SENNA 8.6 MG TAB PO SCH ×2 (08:17→20:43)
[2018-01-01] MEDS: METOPROLOL TARTRATE 25 MG TAB PO SCH ×2 (08:17→21:00)
[2018-01-01] MEDS: FAMOTIDINE 20 MG/2 ML VIAL IV PUSH SCH ×2 (08:17→20:43)
[2018-01-01] MEDS: guaiFENesin E.R. 600 MG TAB PO SCH ×2 (08:17→20:43)
[2018-01-01] MEDS: predniSONE 20 MG TAB PO SCH (08:17)
[2018-01-01] MEDS: SODIUM CHLORIDE 0.9% FLUSH 10 ML FLUSH IV FLUSH SCH ×2 (08:18→20:44)
[2018-01-01] MEDS: HYDROmorphone HCL PF 2 MG/ML VIAL IV PUSH PRN (11:51)
--- NOTE | 2018-01-01 12:48 | HHI.CCPN ---
Subjective Remarks/Hospital Course 47-year-old male with a past medical history significant for pulmonary fibrosis , COPD and hypertension and VATS/bleb resection/pleurodesis by Dr. Amanda on 08/23 is admitted to hospital with increased shortness of breath. Chart documentation for the past 24 hours prior to admission he has had significant fever/chills and increasing shortness of breath. Patient was found to have a left-sided pneumothorax on chest x-ray. The chest tube was placed and patient was admitted to medicine with pulmonary consultation in place. Today shortly after midnight the chest tube was found at the patient's bedside the dislodged, patient was in severe respiratory distress, diaphoretic and hypoxemic. The stat x-ray showed reaccumulation of left-sided pneumothorax and emergent chest tube was placed. 12/30 - resting in bed on 6 nasal cannula. Complaining of sore throat. Cough. Pneumothorax last left-sided similar size in reviewing chest x-ray this AM. Discussed with Dr. Blunt and patient 12/31: Resting in bed on nasal cannula. 6 L. Sore throat better controlled with Chloraseptic [place]. Small left sided pneumothorax similar in size from yesterday. Maintaining positive attitude. 01/01: no change. still quite dyspneic. on 6L and intermittently NRB. no new complaints. Objective Vital Signs Date Time Temp Pulse Resp B/P (MAP) Pulse Ox O2 Delivery O2 Flow Rate FiO2 01/01/18 12:15 18 01/01/18 10:00 72 01/01/18 08:03 89 Nasal Cannula 6.00 01/01/18 08:00 98.4 131/88 (102) 12/31/17 07:32 100 Intake and Output 01/01/18 01/01/18 01/02/18 08:00 16:00 00:00 Intake Total 780 ml 50 ml Output Total 1320 ml Balance -540 ml 50 ml Result Diagram: 12/31/17 0659 12/31/1759 Other Results Microbiology Date/Time Source Procedure Growth Status 12/30/17 12:00 Sputum Expectorated Sputum Gram Stain - Final Complete 12/30/17 12:00 Sputum Expectorated Sputum Sputum Culture - Final HEAVY GROWTH NORMAL RESPIRATORY MAKSIM Complete 12/29/17 17:00 Sputum Expectorated Sputum Gram Stain - Final Complete 12/29/17 17:00 Sputum Expectorated Sputum Sputum Culture - Final HEAVY GROWTH NORMAL RESPIRATORY MAKSIM Complete 12/29/17 17:00 Urine Catheterized Urine Legionella Antigen - Final PRESUMPTIVE NEGATIVE FOR LEGIONELLA P... Complete 12/29/17 17:00 Urine Catheterized Urine Streptococcus pneumoniae Antigen (M - Final PRESUMPTIVE NEGATIVE FOR STREPTOCOCCU... Complete Imaging Last 24 hours Impressions Chest X-Ray 12/29/17 0000 Signed Impressions: Service Date/Time: December 04:26 - CONCLUSION: Left chest tube placement with interval decrease in size but not complete resolution of the left pneumothorax. Arnoldo Cheatham MD Chest X-Ray 12/29/17 0000 Signed Impressions: Service Date/Time: December 03:54 - CONCLUSION: 1. Increased size of the left-sided pneumothorax. 2. Stable diffuse right lung airspace consolidation. Arnoldo Cheatham MD Objective Remarks GENERAL: Well-nourished, well-developed patient. In mild respiratory distress SKIN: Warm and dry. HEAD: Normocephalic. EYES: No scleral icterus. No injection or drainage. NECK: trachea midline. No JVD CARDIOVASCULAR: Regular rate and rhythm RESPIRATORY: Breath sounds decreased on the left. Positive for accessory muscle use. GASTROINTESTINAL: Abdomen soft, non-tender, nondistended. MUSCULOSKELETAL: No cyanosis, or edema. NEURO EXAM: RASS 0. GCS 15. no focal deficits. Procedures Chest tube placement A/P Problem List: (1) Migraine headache ICD Code: G43.909 - Migraine, unspecified, not intractable, without status migrainosus Status: Chronic (2) Spontaneous pneumothorax ICD Code: J93.83 - Other pneumothorax Status: Acute (3) Recurrent spontaneous pneumothorax ICD Code: J93.83 - Other pneumothorax Status: Acute (4) COPD exacerbation ICD Code: J44.1 - Chronic obstructive pulmonary disease with (acute) exacerbation Status: Acute (5) Pulmonary fibrosis ICD Code: J84.10 - Pulmonary fibrosis, unspecified Status: Chronic Assessment and Plan Assessment: 47yM with pulmonary fibrosis and spontaneous ptx, with persistent air leak. appreciate pulm and thoracic surgery consults. Pneumothorax - Emergent chest tube placement at the bedside - Continues low wall suction - Repeat CXR daily - Further management per pulmonary service Pulmonary fibrosis - Per lock fitter Hypertension - Norvasc - Metoprolol DVT GI prophylaxis - Teds SCDs - Lovenox - Pepcid OOB Problem Qualifiers (1) Migraine headache: Qualified Codes: G43.009 - Migraine without aura, not intractable, without status migrainosus Hernan Serna MD Jan 01, 2018 12:48
[2018-01-01] MEDS: AZITHROMYCIN INJ 500 MG in SODIUM CHLOR 0.9% 250 ML INJ 250 ML IV SCH (17:18)
[2018-01-01] MEDS: REMOVE OLD LIDOCAINE PATCH T-DERMAL SCH (20:44)
[2018-01-02] VITALS (14 sets, daily range): BP systolic 111–151; BP diastolic 70–99; PULSE 61–93; RESP 14–28; TEMP 97.8–98.4; O2SAT 94–99
[2018-01-02] MEDS: guaiFENesin/CODEINE SYRUP 200 MG/20 MG/10 ML CUP PO PRN ×5 (01:47→20:37)
[2018-01-02] MEDS: HYDROmorphone HCL PF 2 MG/ML VIAL IV PUSH PRN ×7 (01:56→22:53)
[2018-01-02] MEDS: PIPERACIL-TAZO 3.375 GM PREMIX 50 ML IV SCH ×2 (02:54→08:30)
[2018-01-02] MEDS: ENOXAPARIN SODIUM 40 MG/0.4 ML SYRINGE SQ SCH (05:30)
[2018-01-02] MEDS: RESP: ALBUTEROL 2.5 MG/IPRATROPIUM 0.5 MG NEB (SCH) NEB ×4 (08:00→20:43)
[2018-01-02] MEDS: TIOTROPIUM BROMIDE 18 MCG INH INH SCH (08:30)
[2018-01-02] MEDS: FAMOTIDINE 20 MG/2 ML VIAL IV PUSH SCH ×2 (08:30→20:37)
[2018-01-02] MEDS: DOCUSATE SODIUM 50 MG/SENNA 8.6 MG TAB PO SCH ×2 (08:31→20:38)
[2018-01-02] MEDS: predniSONE 20 MG TAB PO SCH (08:31)
[2018-01-02] MEDS: METOPROLOL TARTRATE 25 MG TAB PO SCH ×2 (08:31→20:38)
[2018-01-02] MEDS: guaiFENesin E.R. 600 MG TAB PO SCH ×2 (08:31→20:38)
[2018-01-02] MEDS: SODIUM CHLORIDE 0.9% FLUSH 10 ML FLUSH IV FLUSH SCH ×2 (08:32→20:38)
[2018-01-02] MEDS: LIDOCAINE HCL 5% PATCH T-DERMAL SCH (08:32)
[2018-01-02] MEDS: BUDESONIDE-FORMOTEROL 160/4.5 MCG INHALER INH SCH ×2 (09:00→20:38)
--- NOTE | 2018-01-02 12:45 | HHI.CCPN ---
Subjective Remarks/Hospital Course 47-year-old male with a past medical history significant for pulmonary fibrosis , COPD and hypertension and VATS/bleb resection/pleurodesis by Dr. Amanda on 08/23 is admitted to hospital with increased shortness of breath. Chart documentation for the past 24 hours prior to admission he has had significant fever/chills and increasing shortness of breath. Patient was found to have a left-sided pneumothorax on chest x-ray. The chest tube was placed and patient was admitted to medicine with pulmonary consultation in place. Today shortly after midnight the chest tube was found at the patient's bedside the dislodged, patient was in severe respiratory distress, diaphoretic and hypoxemic. The stat x-ray showed reaccumulation of left-sided pneumothorax and emergent chest tube was placed. 12/30 - resting in bed on 6 nasal cannula. Complaining of sore throat. Cough. Pneumothorax last left-sided similar size in reviewing chest x-ray this AM. Discussed with Dr. Blunt and patient 12/31: Resting in bed on nasal cannula. 6 L. Sore throat better controlled with Chloraseptic [place]. Small left sided pneumothorax similar in size from yesterday. Maintaining positive attitude. 01/01: no change. still quite dyspneic. on 6L and intermittently NRB. no new complaints. 01/02: Intermittent requiring nasal cannula versus nonrebreather mask. Remain short of breath. Small air leak persists. -40 cm H2O Objective Vital Signs Date Time Temp Pulse Resp B/P (MAP) Pulse Ox O2 Delivery O2 Flow Rate FiO2 01/02/18 12:12 96 Non-Rebreather 15.00 01/02/18 10:00 69 01/02/18 08:00 97.9 28 116/78 (91) 12/31/17 07:32 100 Intake and Output 01/02/18 01/02/18 01/03/18 08:00 16:00 00:00 Intake Total 960 ml 100 ml Output Total 1225 ml Balance -265 ml 100 ml Result Diagram: 12/31/17 0659 12/31/17 0659 Other Results Microbiology Date/Time Source Procedure Growth Status 12/29/17 18:21 Blood Peripheral Aerobic Blood Culture - Preliminary NO GROWTH IN 4 DAYS Resulted 12/29/17 18:21 Blood Peripheral Anaerobic Blood Culture - Preliminary NO GROWTH IN 4 DAYS Resulted 12/30/17 12:00 Sputum Expectorated Sputum Gram Stain - Final Complete 12/30/17 12:00 Sputum Expectorated Sputum Sputum Culture - Final HEAVY GROWTH NORMAL RESPIRATORY MAKSIM Complete 12/29/17 17:00 Urine Catheterized Urine Legionella Antigen - Final PRESUMPTIVE NEGATIVE FOR LEGIONELLA P... Complete 12/29/17 17:00 Urine Catheterized Urine Streptococcus pneumoniae Antigen (M - Final PRESUMPTIVE NEGATIVE FOR STREPTOCOCCU... Complete Imaging Last Impressions Chest X-Ray 01/01/18 0600 Signed Impressions: Service Date/Time: Monday, January 01, 2018 05:13 - CONCLUSION: 1. Small caliber left chest tube with stable small left pneumothorax. Underlying pulmonary fibrosis and emphysema. No new infiltrate. Fausto Leyva MD Objective Remarks GENERAL: 47 yo AA male resting in bed in no acute distress SKIN: Warm and dry. HEAD: Atraumatic. Normocephalic. EYES: Pupils equal and round. No scleral icterus. No injection or drainage. ENT: No nasal bleeding or discharge. Mucous membranes pink and moist. NECK: Trachea midline. No JVD. CARDIOVASCULAR: Regular rate and rhythm. RESPIRATORY: Faint crackles appreciated throughout lung kwong. Left chest tube is clean dry and intact GASTROINTESTINAL: Abdomen soft, non-tender, nondistended. Hepatic and splenic margins not palpable. MUSCULOSKELETAL: Extremities without significant peripheral edema. No obvious deformities. NEUROLOGICAL: Awake and alert. No obvious cranial nerve deficits. Motor grossly within normal limits. Five out of 5 muscle strength in the arms and legs. Normal speech. PSYCHIATRIC: Appropriate mood and affect; insight and judgment normal. Procedures Chest tube placement A/P Assessment and Plan Neuro/Psych: History of migraine headache Acetaminophen 650 mg by mouth every 6 hours when necessary fever/pain 1-2 Oxycodone 5 mg by mouth every 4 hours when necessary pain 3-5 Oxycodone 10 mg by mouth every 4 hours. Pain 6 out of Hydromorphone 1 mg every every 2 hours when necessary breakthrough pain CV: Hypertension Continue amlodipine 10 mg daily and metoprolol tartrate 25 mg twice a day for hypertension Resp: Recurrent left pneumothorax History of VATS/pneumonectomy/bleb Dr. Blunt 09/06 Pulmonary fibrosis - Dr. Santos COPD Currently 6 L nasal cannula goal to saturations equal to 95% Left pigtail chest tube placed emergently this morning due to dislodgment on 2/8 Increased suction to -[id number]. -70 cm clear yellow past 24 hours Message left with Dr. Blunt is currently in surgery to evaluate again today Recheck chest x-ray in a.m. Budesonide/formoterol 160/4.5 - 2 puffs twice a day Tiotropium daily Albuterol aerosols every 2 hours. Breakthrough dyspnea GI: Advance diet as tolerated/regular diet Famotidine for GI prophylaxis Docusate sodium/senna 1 tablet twice a day for bowel regimen : No indication for Ochoa catheter Endo: Chronic prednisone use Current prednisone 40 mill grams daily/10 milligrams daily at home. Renal: Creatinine currently within normal limits Recheck BMP in a.m. 12/31 Heme: Normocytic anemia Monitor CBC daily. Follow trends ID: Currently on vancomycin and piperacillin/tazobactam Pertinent cultures 12/29 and 12/25 - blood cultures 2 - no growth to date Sputum - 12/29 - Pending Urine Legionella and pneumococcal antigens pending MSK: Physical therapy evaluate and treat FEN: Replace electrolytes as clinically indicated Access - Utilize peripheral IV. Central line if indicated Prophylaxis - GI - famotidine - DVT - SCD/enoxaparin Level II follow-up Darius Royal MD Jan 02, 2018 12:45
--- NOTE | 2018-01-02 13:10 | HHI.PR ---
Subjective Remarks Feels OK. Chest tube is in and leaks . Still in ICU and has a New chest tube. Feels better On O2 5L Rpt CXR shows a smaller Pneumothorax. Not a candidate for Surgery. Objective Vital Signs Date Time Temp Pulse Resp B/P (MAP) Pulse Ox O2 Delivery O2 Flow Rate FiO2 01/02/18 12:12 96 Non-Rebreather 15.00 01/02/18 10:00 69 01/02/18 09:35 98 Non-Rebreather 15.00 01/02/18 08:00 97.9 72 28 116/78 (91) 96 01/02/18 08:00 72 01/02/18 07:00 95 Partial Non-Rebreather 6.00 01/02/18 06:00 67 01/02/18 04:00 70 01/02/18 04:00 98.4 70 20 127/85 (99) 97 01/02/18 02:00 66 01/02/18 00:00 74 01/02/18 00:00 98.1 74 28 133/86 (102) 99 01/01/18 22:00 70 01/01/18 20:00 64 01/01/18 20:00 97.9 64 18 113/70 (84) 91 01/01/18 19:00 94 Partial Non-Rebreather 6.00 01/01/18 18:00 72 01/01/18 16:00 98.3 68 22 109/58 (75) 97 01/01/18 16:00 68 01/01/18 14:00 76 01/01/18 13:54 20 I/O 01/01/18 01/01/18 01/01/18 01/02/18 01/02/18 01/02/18 07:00 15:00 23:00 07:00 15:00 23:00 Intake Total 780 ml 50 ml 1010 ml 960 ml 100 ml Output Total 1320 ml 1170 ml 1225 ml Balance -540 ml 50 ml -160 ml -265 ml 100 ml Intake Oral 680 ml 960 ml 960 ml IV Total 100 ml 50 ml 50 ml 100 ml Output Urine Total 1300 ml 1150 ml 1225 ml Chest Tube Drainage Total 20 ml 20 ml 0 ml # Bowel Movements 0 0 0 Result Diagram: 12/31/17 0659 2/10/18 0659 Objective Remarks GENERAL: This is a well-built middle-aged man who is alert and in no acute distress. No pallor or icterus, or edema. HEAD, EYES, EARS, NOSE, THROAT: Head normocephalic. The pupils are reactive and equal. Tongue is moist. Nasal mucosa clear, Throat clear. NECK: The neck is supple. No venous distention. CHEST: Decreased breath sounds over the left mid and upper chest with occasional crackles of the lung bases.Chest Tube is in on left. HEART: Heart sounds are regular. S1 and S2. No murmur. No S3. ABDOMEN: Abdomen soft and scaphoid without masses. No organomegaly or tenderness. The bowel sounds are active. EXTREMITIES: No lesions. No edema. NEUROLOGIC: Reflexes are normal with no gross motor deficits. SKIN: No lesions. Assessment and Plan Assessment and Plan IMPRESSION: 1. Recurrent left pneumothorax with hypoxemia. 2. COPD and chronic bronchitis with bronchiectasis. 3. Basilar pulmonary fibrosis. 4. Hypertension. Plan : 1. Cont Chest tube to wall suction 2. Rpt CXR in am, ,BMP 3. O2 5 L. 4. Duonebs qid. 5. Continue antibiotics. 6. IS at bedside q3h 7. Maybe a candidate for endobronchial valve Prerna Santos MD Jan 02, 2018 13:10
[2018-01-02] MEDS: PIPERACIL-TAZO 4.5 GM PREMIX 100 ML IV SCH ×2 (14:39→22:00)
[2018-01-02] MEDS: AZITHROMYCIN INJ 500 MG in SODIUM CHLOR 0.9% 250 ML INJ 250 ML IV SCH (16:36)
[2018-01-02] MEDS: REMOVE OLD LIDOCAINE PATCH T-DERMAL SCH (20:55)
[2018-01-03] VITALS (14 sets, daily range): BP systolic 115–130; BP diastolic 69–97; PULSE 68–89; RESP 17–26; TEMP 98–98.6; O2SAT 90–100
[2018-01-03] MEDS: guaiFENesin/CODEINE SYRUP 200 MG/20 MG/10 ML CUP PO PRN ×4 (01:29→17:15)
[2018-01-03] MEDS: HYDROmorphone HCL PF 2 MG/ML VIAL IV PUSH PRN (05:37)
[2018-01-03] MEDS: PIPERACIL-TAZO 4.5 GM PREMIX 100 ML IV SCH ×3 (05:38→22:17)
--- NOTE | 2018-01-03 06:02 | RADRPT ---
EXAM DATE/TIME: 01/03/2018 05:21 [facility] COMPARISON: CHEST SINGLE AP, January 01, 2018, 5:13. INDICATIONS : Follow up pneumothorax. MEDICAL HISTORY : Pulmonary fibrosis. SURGICAL HISTORY : None. ENCOUNTER: Subsequent ACUITY: 4 - 6 days PAIN SCORE: Non-responsive. LOCATION: Bilateral chest FINDINGS: Left sided chest tube is identified, bilateral parenchymal infiltrates are again seen, and there is a stable left-sided pneumothorax. Cardiomegaly is present. CONCLUSION: No significant change has occurred. Joshua Bryant MD on January 03, 2018 at 6:00 Board Certified Radiologist. This report was verified electronically.
[2018-01-03] MEDS: RESP: ALBUTEROL 2.5 MG/IPRATROPIUM 0.5 MG NEB (SCH) NEB ×4 (08:10→19:42)
[2018-01-03] MEDS: FAMOTIDINE 20 MG/2 ML VIAL IV PUSH SCH (08:14)
[2018-01-03] MEDS: LIDOCAINE HCL 5% PATCH T-DERMAL SCH (08:14)
[2018-01-03] MEDS: ENOXAPARIN SODIUM 40 MG/0.4 ML SYRINGE SQ SCH (08:15)
[2018-01-03] MEDS: TIOTROPIUM BROMIDE 18 MCG INH INH SCH (08:15)
[2018-01-03] MEDS: SODIUM CHLORIDE 0.9% FLUSH 10 ML FLUSH IV FLUSH SCH ×2 (08:15→21:00)
[2018-01-03] MEDS: BUDESONIDE-FORMOTEROL 160/4.5 MCG INHALER INH SCH ×2 (08:16→21:00)
[2018-01-03] MEDS: guaiFENesin E.R. 600 MG TAB PO SCH ×2 (08:16→22:16)
[2018-01-03] MEDS: predniSONE 20 MG TAB PO SCH (08:16)
[2018-01-03] MEDS: METOPROLOL TARTRATE 25 MG TAB PO SCH ×2 (08:16→21:00)
[2018-01-03] MEDS: DOCUSATE SODIUM 50 MG/SENNA 8.6 MG TAB PO SCH ×2 (08:16→22:17)
[2018-01-03 13:05] LABS: AUTOMATED NEUTROPHIL # 7.1 TH/MM3 (1.8-7.7); BASOPHIL % 0.1 % (0.0-2.0); EOSINOPHIL # 0.2 TH/MM3 (0-0.4); EOSINOPHIL % 1.8 % (0.0-4.0); HEMATOCRIT 36.4 % (39.0-51.0); LYMPH % 13.1 % (9.0-44.0); LYMPHOCYTE # 1.2 TH/MM3 (1.0-4.8); MEAN CELL VOLUME 84.9 FL (80.0-100.0); MEAN PLATELET VOLUME 7.7 FL (7.0-11.0); MONO % 4.3 % (0.0-8.0); MONOCYTE # 0.4 TH/MM3 (0-0.9); NEUT % 80.7 % (16.0-70.0); PLATELET COUNT 241 TH/MM3 (150-450); RED BLOOD COUNT 4.28 MIL/MM3 (4.50-5.90); RED CELL DISTRIBUTION WIDTH 14.9 % (11.6-17.2); WHITE BLOOD COUNT 8.8 TH/MM3 (4.0-11.0)
--- NOTE | 2018-01-03 13:20 | HHI.CCPN ---
Subjective Remarks/Hospital Course 47-year-old male with a past medical history significant for pulmonary fibrosis , COPD and hypertension and VATS/bleb resection/pleurodesis by Dr. Amanda on 08/23 is admitted to hospital with increased shortness of breath. Chart documentation for the past 24 hours prior to admission he has had significant fever/chills and increasing shortness of breath. Patient was found to have a left-sided pneumothorax on chest x-ray. The chest tube was placed and patient was admitted to medicine with pulmonary consultation in place. Today shortly after midnight the chest tube was found at the patient's bedside the dislodged, patient was in severe respiratory distress, diaphoretic and hypoxemic. The stat x-ray showed reaccumulation of left-sided pneumothorax and emergent chest tube was placed. 12/30 - resting in bed on 6 nasal cannula. Complaining of sore throat. Cough. Pneumothorax last left-sided similar size in reviewing chest x-ray this AM. Discussed with Dr. Blunt and patient 12/31: Resting in bed on nasal cannula. 6 L. Sore throat better controlled with Chloraseptic [place]. Small left sided pneumothorax similar in size from yesterday. Maintaining positive attitude. 01/01: no change. still quite dyspneic. on 6L and intermittently NRB. no new complaints. 01/02: Intermittent requiring nasal cannula versus nonrebreather mask. Remain short of breath. Small air leak persists. -40 cm H2O 01/03: Currently on nasal cannula 6 L. Appears depressed. Small air leak persists 1-2 chambers. -40 cm H2O. Objective Vital Signs Date Time Temp Pulse Resp B/P (MAP) Pulse Ox O2 Delivery O2 Flow Rate FiO2 01/03/18 10:00 86 01/03/18 08:13 93 Nasal Cannula 6.00 01/03/18 08:00 98.4 17 130/91 (104) 12/31/17 07:32 100 Intake and Output 01/03/18 01/03/18 01/04/18 08:00 16:00 00:00 Intake Total 580 ml Output Total 1825 ml Balance -1245 ml Result Diagram: 01/03/18 1200 12/31/17 0659 Imaging Last Impressions Chest X-Ray 01/01/18 0600 Signed Impressions: Service Date/Time: Monday, January 01, 2018 05:13 - CONCLUSION: 1. Small caliber left chest tube with stable small left pneumothorax. Underlying pulmonary fibrosis and emphysema. No new infiltrate. Fausto Leyva MD Objective Remarks GENERAL: 47 yo AA male resting in bed in no acute distress SKIN: Warm and dry. HEAD: Atraumatic. Normocephalic. EYES: Pupils equal and round. No scleral icterus. No injection or drainage. ENT: No nasal bleeding or discharge. Mucous membranes pink and moist. NECK: Trachea midline. No JVD. CARDIOVASCULAR: Regular rate and rhythm. RESPIRATORY: Faint crackles appreciated throughout lung kwong. Left chest tube is clean dry and intact GASTROINTESTINAL: Abdomen soft, non-tender, nondistended. Hepatic and splenic margins not palpable. MUSCULOSKELETAL: Extremities without significant peripheral edema. No obvious deformities. NEUROLOGICAL: Awake and alert. No obvious cranial nerve deficits. Motor grossly within normal limits. Five out of 5 muscle strength in the arms and legs. Normal speech. PSYCHIATRIC: Appropriate mood and affect; insight and judgment normal. Procedures Chest tube placement A/P Assessment and Plan Neuro/Psych: History of migraine headache Acetaminophen 650 mg by mouth every 6 hours when necessary fever/pain 1-2 Oxycodone 5 mg by mouth every 4 hours when necessary pain 3-5 Oxycodone 10 mg by mouth every 4 hours. Pain 6 out of Hydromorphone 1 mg every every 2 hours when necessary breakthrough pain CV: Hypertension Continue amlodipine 10 mg daily and metoprolol tartrate 25 mg twice a day for hypertension Resp: Recurrent left pneumothorax History of VATS/pneumonectomy/bleb Dr. Blunt 09/06 Pulmonary fibrosis - Dr. Santos COPD Currently 6 L nasal cannula goal to saturations equal to 95% Left pigtail chest tube placed emergently this morning due to dislodgment on 12/29 Increased suction to -[id number]. -50 cm clear yellow past 24 hours Message left with Dr. Blunt is currently in surgery to evaluate again today Recheck chest x-ray in a.m. Budesonide/formoterol 160/4.5 - 2 puffs twice a day Tiotropium daily Albuterol aerosols every [address]. [address] Santos - to discuss with Dr. Goddard possible transfer to [facility] for endobronchial valve GI: Advance diet as tolerated/regular diet Famotidine for GI prophylaxis Docusate sodium/senna 1 tablet twice a day for bowel regimen : No indication for Ochoa catheter Endo: Chronic prednisone use Current prednisone 40 mill grams daily/10 milligrams daily at home. Renal: Creatinine currently within normal limits Recheck BMP in a.m. 01/03 still pending Heme: Normocytic anemia Monitor CBC daily. Follow trends ID: Currently on vancomycin and piperacillin/tazobactam Pertinent cultures 12/29 and 12/25 - blood cultures 2 - no growth to date Sputum - 12/29 - Pending Urine Legionella and pneumococcal antigens pending MSK: Physical therapy evaluate and treat FEN: Replace electrolytes as clinically indicated Access - Utilize peripheral IV. Central line if indicated Prophylaxis - GI - famotidine - DVT - SCD/enoxaparin Level II follow-up Darius Royal MD Jan 03, 2018 13:20
[2018-01-03 13:40] LABS: BICARBONATE 34.6 MEQ/L (21.0-32.0); CALCIUM 8.7 MG/DL (8.5-10.1); CREATININE 0.73 MG/DL (0.60-1.30)
[2018-01-03] MEDS: AZITHROMYCIN INJ 500 MG in SODIUM CHLOR 0.9% 250 ML INJ 250 ML IV SCH (17:16)
--- NOTE | 2018-01-03 19:25 | HHI.PR ---
Subjective Remarks Feels OK. Chest tube is in and still leaks . Still in ICU and has a New chest tube. On O2 5L Rpt CXR shows a stable left Pneumothorax. Not a candidate for Surgery. Objective Vital Signs Date Time Temp Pulse Resp B/P (MAP) Pulse Ox O2 Delivery O2 Flow Rate FiO2 01/03/18 18:00 84 01/03/18 16:00 98.0 88 26 128/97 (107) 98 01/03/18 16:00 88 01/03/18 14:00 75 01/03/18 12:00 89 01/03/18 12:00 98.1 89 21 122/74 (90) 95 01/03/18 10:00 86 01/03/18 08:13 93 Nasal Cannula 6.00 01/03/18 08:00 89 01/03/18 08:00 98.4 89 17 130/91 (104) 97 01/03/18 07:00 95 Partial Non-Rebreather 6.00 01/03/18 06:00 73 01/03/18 04:00 80 01/03/18 04:00 98.6 80 23 126/69 (88) 100 01/03/18 02:00 74 01/03/18 00:00 68 01/03/18 00:00 98.0 68 26 118/80 (93) 90 01/02/18 22:00 68 01/02/18 20:46 Nasal Cannula 6.00 01/02/18 20:00 97.8 86 25 111/75 (87) 98 01/02/18 20:00 86 I/O 01/02/18 01/02/18 01/02/18 01/03/18 01/03/18 01/03/18 07:00 15:00 23:00 07:00 15:00 23:00 Intake Total 960 ml 100 ml 2270 ml 680 ml 100 ml 2140 ml Output Total 1225 ml 2050 ml 1825 ml 1675 ml Balance -265 ml 100 ml 220 ml -1145 ml 100 ml 465 ml Intake Oral 960 ml 1920 ml 480 ml 1890 ml IV Total 100 ml 350 ml 200 ml 100 ml 250 ml Output Urine Total 1225 ml 2050 ml 1775 ml 1675 ml Chest Tube Drainage Total 0 ml 0 ml 50 ml 0 ml # Bowel Movements 0 0 0 0 Result Diagram: 01/03/18 1200 01/03/18 1200 Objective Remarks GENERAL: This is a well-built middle-aged man who is alert and in no acute distress. No pallor or icterus, or edema. HEAD, EYES, EARS, NOSE, THROAT: Head normocephalic. The pupils are reactive and equal. Tongue is moist. Nasal mucosa clear, Throat clear. NECK: The neck is supple. No venous distention. CHEST: Decreased breath sounds over the left mid and upper chest with occasional crackles at the lung bases.Chest Tube is in left. HEART: Heart sounds are regular. S1 and S2. No murmur. No S3. ABDOMEN: Abdomen soft and scaphoid without masses. No organomegaly or tenderness. The bowel sounds are active. EXTREMITIES: No lesions. No edema. NEUROLOGIC: Reflexes are normal with no gross motor deficits. SKIN: No lesions. Assessment and Plan Assessment and Plan IMPRESSION: 1. Recurrent left pneumothorax with hypoxemia. 2. COPD and chronic bronchitis with bronchiectasis. 3. Basilar pulmonary fibrosis. 4. Hypertension. Plan : 1. Cont Chest tube to wall suction 2. Rpt CXR in am. 3. O2 6 L. 4. Duonebs qid. 5. Continue antibiotics. 6. IS at bedside q3h 7. Maybe a candidate for endobronchial valve , and will D/W Prerna Oneill MD Jan 03, 2018 19:25
[2018-01-03] MEDS: FAMOTIDINE 20 MG TAB PO SCH (22:16)
[2018-01-03] MEDS: REMOVE OLD LIDOCAINE PATCH T-DERMAL SCH (22:17)
[2018-01-04] VITALS (12 sets, daily range): BP systolic 102–136; BP diastolic 57–79; PULSE 62–85; RESP 14–25; TEMP 98.2–98.3; O2SAT 94–100
[2018-01-04] MEDS: HYDROmorphone HCL PF 2 MG/ML VIAL IV PUSH PRN ×3 (00:19→23:01)
[2018-01-04] MEDS: guaiFENesin/CODEINE SYRUP 200 MG/20 MG/10 ML CUP PO PRN ×3 (00:47→21:21)
[2018-01-04] MEDS: PIPERACIL-TAZO 4.5 GM PREMIX 100 ML IV SCH ×3 (05:23→22:36)
--- NOTE | 2018-01-04 05:49 | RADRPT ---
EXAM DATE/TIME: 01/04/2018 04:51 [facility] COMPARISON: CHEST SINGLE AP, January 03, 2018, 5:21. INDICATIONS : Short of breath. MEDICAL HISTORY : Pulmonary fibrosis. SURGICAL HISTORY : None. ENCOUNTER: Subsequent ACUITY: 2 months PAIN SCORE: 0/10 LOCATION: Bilateral chest FINDINGS: There are stable bilateral infiltrates, left-sided chest tube, and stable left-sided pneumothorax. Os seous structures are intact. CONCLUSION: No significant change has occurred. Joshua Bryant MD on January 04, 2018 at 5:47 Board Certified Radiologist. This report was verified electronically.
[2018-01-04] MEDS: TIOTROPIUM BROMIDE 18 MCG INH INH SCH (07:53)
[2018-01-04] MEDS: FAMOTIDINE 20 MG TAB PO SCH ×2 (07:53→21:22)
[2018-01-04] MEDS: guaiFENesin E.R. 600 MG TAB PO SCH ×2 (07:53→21:22)
[2018-01-04] MEDS: predniSONE 20 MG TAB PO SCH (07:53)
[2018-01-04] MEDS: DOCUSATE SODIUM 50 MG/SENNA 8.6 MG TAB PO SCH ×2 (07:53→21:22)
[2018-01-04] MEDS: SODIUM CHLORIDE 0.9% FLUSH 10 ML FLUSH IV FLUSH SCH ×2 (07:54→21:25)
[2018-01-04] MEDS: LIDOCAINE HCL 5% PATCH T-DERMAL SCH (07:54)
[2018-01-04] MEDS: ENOXAPARIN SODIUM 40 MG/0.4 ML SYRINGE SQ SCH (07:54)
[2018-01-04] MEDS: BUDESONIDE-FORMOTEROL 160/4.5 MCG INHALER INH SCH ×2 (08:06→21:21)
[2018-01-04] MEDS: BENZOCAINE-MENTHOL (SUGAR FREE) 15 MG-3.6 MG LOZENGE BUCCAL PRN ×2 (08:15→13:03)
[2018-01-04] MEDS: METOPROLOL TARTRATE 25 MG TAB PO SCH ×3 (08:20→21:21)
[2018-01-04] MEDS: RESP: ALBUTEROL 2.5 MG/IPRATROPIUM 0.5 MG NEB (SCH) NEB ×4 (08:35→20:46)
--- NOTE | 2018-01-04 09:35 | HHI.CCPN ---
Subjective Remarks/Hospital Course 47-year-old male with a past medical history significant for pulmonary fibrosis , COPD and hypertension and VATS/bleb resection/pleurodesis by Dr. Amanda on 08/23 is admitted to hospital with increased shortness of breath. Chart documentation for the past 24 hours prior to admission he has had significant fever/chills and increasing shortness of breath. Patient was found to have a left-sided pneumothorax on chest x-ray. The chest tube was placed and patient was admitted to medicine with pulmonary consultation in place. Today shortly after midnight the chest tube was found at the patient's bedside the dislodged, patient was in severe respiratory distress, diaphoretic and hypoxemic. The stat x-ray showed reaccumulation of left-sided pneumothorax and emergent chest tube was placed. 12/30 - resting in bed on 6 nasal cannula. Complaining of sore throat. Cough. Pneumothorax last left-sided similar size in reviewing chest x-ray this AM. Discussed with Dr. Blunt and patient 12/31: Resting in bed on nasal cannula. 6 L. Sore throat better controlled with Chloraseptic [place]. Small left sided pneumothorax similar in size from yesterday. Maintaining positive attitude. 01/01: no change. still quite dyspneic. on 6L and intermittently NRB. no new complaints. 01/02: Intermittent requiring nasal cannula versus nonrebreather mask. Remain short of breath. Small air leak persists. -40 cm H2O 01/03: Currently on nasal cannula 6 L. Appears depressed. Small air leak persists 1-2 chambers. -40 cm H2O. 01/04: Remains on nasal cannula 6 L. Switch is off and on between nonrebreather nasal cannula. Air leak persists. Pulmonology is okay with transfer to floor. Objective Vital Signs Date Time Temp Pulse Resp B/P (MAP) Pulse Ox O2 Delivery O2 Flow Rate FiO2 01/04/18 06:00 70 01/04/18 04:00 98.3 14 136/69 (91) 100 01/03/18 19:43 Nasal Cannula 6.00 12/31/17 07:32 100 Intake and Output 01/04/18 01/04/18 01/05/18 08:00 16:00 00:00 Intake Total 720 ml Output Total 1500 ml Balance -780 ml Result Diagram: 01/03/18 1200 01/03/18 1200 Other Results Microbiology Date/Time Source Procedure Growth Status 12/29/17 18:21 Blood Peripheral Aerobic Blood Culture - Final NO GROWTH IN 5 DAYS Complete 12/29/17 18:21 Blood Peripheral Anaerobic Blood Culture - Final NO GROWTH IN 5 DAYS Complete 12/30/17 12:00 Sputum Expectorated Sputum Gram Stain - Final Complete 12/30/17 12:00 Sputum Expectorated Sputum Sputum Culture - Final HEAVY GROWTH NORMAL RESPIRATORY MAKSIM Complete 12/29/17 17:00 Urine Catheterized Urine Legionella Antigen - Final PRESUMPTIVE NEGATIVE FOR LEGIONELLA P... Complete 12/29/17 17:00 Urine Catheterized Urine Streptococcus pneumoniae Antigen (M - Final PRESUMPTIVE NEGATIVE FOR STREPTOCOCCU... Complete Imaging Last Impressions Chest X-Ray 01/04/18 0600 Signed Impressions: Service Date/Time: Tuesday, January 04, 2018 04:51 - CONCLUSION: No significant change has occurred. Joshua Bryant MD Objective Remarks GENERAL: 47 yo AA male resting in bed in no acute distress SKIN: Warm and dry. HEAD: Atraumatic. Normocephalic. EYES: Pupils equal and round. No scleral icterus. No injection or drainage. ENT: No nasal bleeding or discharge. Mucous membranes pink and moist. NECK: Trachea midline. No JVD. CARDIOVASCULAR: Regular rate and rhythm. RESPIRATORY: Faint crackles appreciated throughout lung kwong. Left chest tube is clean dry and intact GASTROINTESTINAL: Abdomen soft, non-tender, nondistended. Hypoactive bowel sounds are present MUSCULOSKELETAL: Extremities without significant peripheral edema. No obvious deformities. NEUROLOGICAL: Awake and alert. No obvious cranial nerve deficits. Motor grossly within normal limits. Five out of 5 muscle strength in the arms and legs. Normal speech. PSYCHIATRIC: Appropriate mood and affect; insight and judgment normal. Procedures Chest tube placement A/P Assessment and Plan Neuro/Psych: History of migraine headache Acetaminophen 650 mg by mouth every 6 hours when necessary fever/pain 1-2 Oxycodone 5 mg by mouth every 4 hours when necessary pain 3-5 Oxycodone 10 mg by mouth every 4 hours. Pain 6 - 10 Hydromorphone 1 mg every every 2 hours when necessary breakthrough pain CV: Hypertension Continue amlodipine 10 mg daily and metoprolol tartrate 25 mg twice a day for hypertension Resp: Recurrent left pneumothorax History of VATS/pneumonectomy/bleb Dr. Blunt 09/06 Pulmonary fibrosis - Dr. Santos COPD Currently 6 L nasal cannula goal to saturations equal to 95% Left pigtail chest tube placed emergently this morning due to dislodgment on 12/29 Increased suction to -[id number]. -0 cm clear yellow past [address] Blunt CT surgery Recheck chest x-ray in a.m. 01/05. Stable Budesonide/formoterol 160/4.5 - 2 puffs twice a day Tiotropium 18 g ventilation daily Albuterol aerosols every [address]. [address] Santos - to discuss with Dr. Goddard possible transfer to [facility] for endobronchial valve GI: Advance diet as tolerated/regular diet Famotidine for GI prophylaxis Docusate sodium/senna 1 tablet twice a day for bowel regimen : No indication for Ochoa catheter Endo: Chronic prednisone use Current prednisone 40 mill grams daily/10 milligrams daily at home. Renal: Creatinine currently within normal limits Heme: Normocytic anemia Monitor CBC daily. Follow trends ID: Currently on azithromycin and piperacillin/tazobactam Pertinent cultures 12/29 and 12/25 - blood cultures 2 - no growth to date Sputum - 12/29 - Pending Urine Legionella and pneumococcal antigens pending MSK: Physical therapy evaluate and treat FEN: Replace electrolytes as clinically indicated Access - Utilize peripheral IV. Central line if indicated Prophylaxis - GI - famotidine - DVT - SCD/enoxaparin Level II follow-up Patient is stable from a critical care medicine standpoint. We'll assign care hospitalist in am 01/05. Okay to transfer from ICU. Darius Royal MD Jan 04, 2018 09:35
[2018-01-04] MEDS: AZITHROMYCIN INJ 500 MG in SODIUM CHLOR 0.9% 250 ML INJ 250 ML IV SCH (16:12)
--- NOTE | 2018-01-04 18:15 | HHI.PR ---
Subjective Remarks Feels OK. Chest tube is in and has a Leak. On O2 6 L Rpt CXR shows a stable left Pneumothorax. Not a candidate for Surgery. Objective Vital Signs Date Time Temp Pulse Resp B/P (MAP) Pulse Ox O2 Delivery O2 Flow Rate FiO2 01/04/18 12:00 98.3 82 22 120/74 (89) 94 01/04/18 12:00 82 01/04/18 10:00 85 01/04/18 08:00 74 01/04/18 08:00 98.3 78 25 102/57 (72) 95 01/04/18 07:00 98 Partial Non-Rebreather 8.00 01/04/18 06:00 70 01/04/18 04:00 98.3 65 14 136/69 (91) 100 01/04/18 04:00 65 01/04/18 02:00 80 01/04/18 00:00 84 01/04/18 00:00 98.3 84 24 103/64 (77) 95 01/03/18 22:00 80 01/03/18 20:00 89 01/03/18 20:00 98.3 89 22 115/73 (87) 94 01/03/18 19:43 96 Nasal Cannula 6.00 01/03/18 19:00 93 Nasal Cannula 6.00 I/O 01/03/18 01/03/18 01/03/18 01/04/18 01/04/18 01/04/18 07:00 15:00 23:00 07:00 15:00 23:00 Intake Total 680 ml 100 ml 2240 ml 720 ml Output Total 1825 ml 1675 ml 1500 ml Balance -1145 ml 100 ml 565 ml -780 ml Intake Oral 480 ml 1890 ml 720 ml IV Total 200 ml 100 ml 350 ml Output Urine Total 1775 ml 1675 ml 1500 ml Chest Tube Drainage Total 50 ml 0 ml # Bowel Movements 0 0 0 Result Diagram: 01/03/18 1200 01/03/18 1200 Objective Remarks GENERAL: This is a well-built middle-aged man who is alert and in no acute distress. No pallor or icterus, or edema. HEAD, EYES, EARS, NOSE, THROAT: Head normocephalic. The pupils are reactive and equal. Tongue is moist. Throat clear. NECK: The neck is supple. No venous distention. CHEST: Decreased breath sounds over the left mid and upper chest with occasional crackles at the lung bases.Chest Tube is in left. HEART: Heart sounds are regular. S1 and S2. No murmur. No S3. ABDOMEN: Abdomen soft and scaphoid without masses. No organomegaly or tenderness. The bowel sounds are active. EXTREMITIES: No lesions. No edema. NEUROLOGIC: Reflexes are normal with no gross motor deficits. SKIN: No lesions. Assessment and Plan Assessment and Plan IMPRESSION: 1. Recurrent left pneumothorax with hypoxemia. 2. COPD and chronic bronchitis with bronchiectasis. 3. Basilar pulmonary fibrosis. 4. Hypertension. Plan : 1. Cont Chest tube to wall suction 2. Rpt CXR in am. 3. O2 6 L.and NRB mask if he desats <90 4. Duonebs qid. 5. Continue antibiotics.and D/C Zithromax 6. IS at bedside q3h 7. Maybe a candidate for endobronchial valve , and will D/W DR Blunt 8. Taper prednisone to 30 mg daily Prerna Santos MD Jan 04, 2018 18:15
[2018-01-04] MEDS: REMOVE OLD LIDOCAINE PATCH T-DERMAL SCH (21:00)
[2018-01-05] VITALS: BP 115/74; PULSE 67; RESP 18; O2SAT 96
[2018-01-05 04:00] VITALS: BP 119/76; PULSE 77; RESP 18; TEMP 97.6; O2SAT 93
[2018-01-05] MEDS: guaiFENesin/CODEINE SYRUP 200 MG/20 MG/10 ML CUP PO PRN (06:25)
[2018-01-05] MEDS: PIPERACIL-TAZO 4.5 GM PREMIX 100 ML IV SCH ×3 (06:25→21:52)
[2018-01-05] MEDS: RESP: ALBUTEROL 2.5 MG/3 ML NEB (PRN) NEB ×2 (06:44→21:41)
--- NOTE | 2018-01-05 07:20 | RADRPT ---
EXAM DATE/TIME: 01/05/2018 06:27 [facility] COMPARISON: CHEST SINGLE AP, January 04, 2018, 4:51. INDICATIONS : Coughing, congestion, short of breath, evaluate pneumothorax MEDICAL HISTORY : pulmonary fibrosis, pneumothorax SURGICAL HISTORY : chest tube ENCOUNTER: Subsequent ACUITY: 2 months PAIN SCORE: 0/10 LOCATION: Bilateral chest FINDINGS: A single view of the chest demonstrates diffuse bilateral interstitial lung disease remains. The 2 pr ominent blebs in the medial left upper lobe unchanged. Bleb in the right lung apex as well. Small pig tail catheter overlies left chest.. The cardiomediastinal contours are unremarkable. Osseous struct ures are intact. CONCLUSION: Stable appearance of the chest with a left pigtail catheter. Blebs in the apices left greater than ri ght. Widespread interstitial lung disease. Leonid Khalil MD on January 05, 2018 at 7:17 Board Certified Radiologist. This report was verified electronically.
[2018-01-05] MEDS: RESP: ALBUTEROL 2.5 MG/IPRATROPIUM 0.5 MG NEB (SCH) NEB ×4 (07:38→18:31)
[2018-01-05 08:00] VITALS: BP 130/89; PULSE 84; RESP 17; TEMP 98; O2SAT 96
[2018-01-05] MEDS: BUDESONIDE-FORMOTEROL 160/4.5 MCG INHALER INH SCH ×2 (08:14→21:47)
[2018-01-05] MEDS: ENOXAPARIN SODIUM 40 MG/0.4 ML SYRINGE SQ SCH (08:15)
[2018-01-05] MEDS: FAMOTIDINE 20 MG TAB PO SCH ×2 (08:16→21:52)
[2018-01-05] MEDS: METOPROLOL TARTRATE 25 MG TAB PO SCH ×2 (08:16→21:52)
[2018-01-05] MEDS: guaiFENesin E.R. 600 MG TAB PO SCH ×2 (08:16→21:52)
[2018-01-05] MEDS: predniSONE 20 MG TAB PO SCH (08:16)
[2018-01-05] MEDS: TIOTROPIUM BROMIDE 18 MCG INH INH SCH (08:17)
[2018-01-05] MEDS: LIDOCAINE HCL 5% PATCH T-DERMAL SCH (08:20)
[2018-01-05] MEDS: DOCUSATE SODIUM 50 MG/SENNA 8.6 MG TAB PO SCH ×2 (08:28→21:52)
[2018-01-05] MEDS: HYDROmorphone HCL PF 2 MG/ML VIAL IV PUSH PRN (08:29)
[2018-01-05] MEDS: SODIUM CHLORIDE 0.9% FLUSH 10 ML FLUSH IV FLUSH SCH ×2 (08:34→21:00)
--- NOTE | 2018-01-05 09:47 | HHI.PR ---
Subjective Remarks Follow up for recurrent pneumothorax. Patient is currently doing well. Chest tube still in place. He states that perfume exacerbates his coughing which leads to worsening of his pneumothorax. No fever, chills. Objective Vitals Vital Signs Date Time Temp Pulse Resp B/P (MAP) Pulse Ox O2 Delivery O2 Flow Rate FiO2 01/05/18 08:00 98.0 84 17 130/89 (103) 96 01/05/18 04:00 97.6 77 18 119/76 (90) 93 01/05/18 00:00 67 18 115/74 (88) 96 01/04/18 22:59 95 Nasal Cannula 6.00 01/04/18 22:36 Nasal Cannula 6.00 01/04/18 20:00 98.2 71 18 129/79 (96) 96 01/04/18 18:00 72 01/04/18 16:00 98.2 70 16 112/71 (85) 95 01/04/18 16:00 70 01/04/18 14:00 62 01/04/18 12:00 98.3 82 22 120/74 (89) 94 01/04/18 12:00 82 01/04/18 10:00 85 I/O 01/04/18 01/04/18 01/04/18 01/05/18 01/05/18 01/05/18 07:00 15:00 23:00 07:00 15:00 23:00 Intake Total 720 ml 100 ml 970 ml Output Total 1500 ml 2400 ml 1000 ml Balance -780 ml 100 ml -1430 ml -1000 ml Intake Oral 720 ml 720 ml IV Total 100 ml 250 ml Output Urine Total 1500 ml 2400 ml 1000 ml Chest Tube Drainage Total 0 ml # Bowel Movements 0 0 Result Diagram: 01/03/18 1200 01/03/18 1200 Imaging Last Impressions Chest X-Ray 01/05/18 0600 Signed Impressions: Service Date/Time: December 06:27 - CONCLUSION: Stable appearance of the chest with a left pigtail catheter. Blebs in the apices left greater than right. Widespread interstitial lung disease. Leonid Khalil MD Objective Remarks GENERAL: Alert, Oriented x 3, NAD. SKIN: Warm and dry. HEAD: Normocephalic. EYES: No scleral icterus. No injection or drainage. NECK: Supple, trachea midline. No JVD or lymphadenopathy. CARDIOVASCULAR: Regular rate and rhythm without murmurs, gallops, or rubs. RESPIRATORY: Decreased breath sounds, left chest tube in place. No accessory muscle use. GASTROINTESTINAL: Abdomen soft, non-tender, nondistended. MUSCULOSKELETAL: No cyanosis, or edema. BACK: Nontender without obvious deformity. No CVA tenderness. Procedures Chest tube placement A/P Problem List: (1) Recurrent spontaneous pneumothorax ICD Code: J93.83 - Other pneumothorax Status: Acute (2) COPD (chronic obstructive pulmonary disease) ICD Code: J44.9 - Chronic obstructive pulmonary disease, unspecified (3) Pulmonary fibrosis ICD Code: J84.10 - Pulmonary fibrosis, unspecified Status: Chronic Assessment and Plan Mr. Price is a 47 year old male with a history of COPD, pulmonary fibrosis s/p VATS, bleb resection, pleurodesis by Cardiothoracic surgery on 08/23/2014 who was admitted to the hospital on 12/25/2017 due to shortness of breath. He was found to have a left sided pneumothorax and underwent left sided chest tube placement. On 12/29/2017 his chest tube dislodged and he went into significant respiratory distress, diaphoresis and hypoxemic. Emergent chest tube was placed again. He was managed in the ICU and transferred to the floor on 01/04/2018. Pulmonary has been following patient closely. - Left sided recurrent pneumothorax - Pulmonary fibrosis - COPD - Probable pneumonia - Supplemental O2 to keep O2 sat > 90%. - DuoNeb, Symbicort, Spiriva, Prednisone 30mg Qday. - Pulmonary following. Pulmonary is discussing with [facility] for endobronchial valve. - [id number] was 144 (100-200) on 12/15/2017. - Currently on Zosyn 4.5g Q8hrs. Pulmonary recommends switching abx to PO. Will switch to Levaquin - Hypertension - Continue Amlodipine 10mg Qday and metoprolol 25mg BID. Full code. Lovenox. Victor M Deutsch DO Jan 05, 2018 09:47
[2018-01-05 12:00] VITALS: BP 131/74; PULSE 88; RESP 17; TEMP 97.8; O2SAT 97
[2018-01-05 16:00] VITALS: BP 99/62; PULSE 85; RESP 18; TEMP 97.6; O2SAT 100
--- NOTE | 2018-01-05 19:21 | HHI.PR ---
Subjective Remarks Feels OK. Chest tube is in and has a small Leak. On O2 6 L and a NRB mask. Rpt CXR shows a stable left Pneumothorax. Not a candidate for Surgery. Objective Vital Signs Date Time Temp Pulse Resp B/P (MAP) Pulse Ox O2 Delivery O2 Flow Rate FiO2 01/05/18 16:00 97.6 85 18 99/62 (74) 100 01/05/18 12:00 97.8 88 17 131/74 (93) 97 01/05/18 11:02 Nasal Cannula 5.00 01/05/18 08:00 98.0 84 17 130/89 (103) 96 01/05/18 04:00 97.6 77 18 119/76 (90) 93 01/05/18 00:00 67 18 115/74 (88) 96 01/04/18 22:59 95 Nasal Cannula 6.00 01/04/18 22:36 Nasal Cannula 6.00 01/04/18 20:00 98.2 71 18 129/79 (96) 96 I/O 01/04/18 01/04/18 01/04/18 01/05/18 01/05/18 01/05/18 07:00 15:00 23:00 07:00 15:00 23:00 Intake Total 720 ml 100 ml 970 ml Output Total 1500 ml 2400 ml 1000 ml Balance -780 ml 100 ml -1430 ml -1000 ml Intake Oral 720 ml 720 ml IV Total 100 ml 250 ml Output Urine Total 1500 ml 2400 ml 1000 ml Chest Tube Drainage Total 0 ml # Bowel Movements 0 0 Result Diagram: 01/03/18 1200 01/03/18 1200 Objective Remarks GENERAL: This is a well-built middle-aged man who is alert and in no acute distress. No pallor or icterus, or edema. HEAD, EYES, EARS, NOSE, THROAT: Head normocephalic. The pupils are reactive and equal. Tongue is moist. Throat clear. NECK: The neck is supple. No venous distention. CHEST: Decreased breath sounds over the left mid and upper chest with occasional crackles at the lung bases.Chest Tube is in left chest. HEART: Heart sounds are regular. S1 and S2. No murmur. No S3. ABDOMEN: Abdomen soft and scaphoid without masses. No organomegaly or tenderness. The bowel sounds are active. EXTREMITIES: No lesions. No edema. NEUROLOGIC: Reflexes are normal with no gross motor deficits. SKIN: No lesions. Assessment and Plan Assessment and Plan IMPRESSION: 1. Recurrent left pneumothorax with hypoxemia. 2. COPD and chronic bronchitis with bronchiectasis. 3. Basilar pulmonary fibrosis. 4. Hypertension. Plan : 1. Cont Chest tube to wall suction 2. Labs in am. 3. O2 5 L.and NRB mask if he desats <90 4. Duonebs qid. 5. Continue antibiotics.Switch to PO in am 6. IS at bedside q3h 7. Maybe a candidate for endobronchial valve , and will D/W DR Blunt 8.Cont prednisone to 30 mg daily Prerna Santos MD Jan 05, 2018 19:21
[2018-01-05 20:25] VITALS: BP 104/63; PULSE 97; RESP 17; TEMP 97.9; O2SAT 95
[2018-01-05] MEDS: REMOVE OLD LIDOCAINE PATCH T-DERMAL SCH (21:00)
[2018-01-06] MEDS: HYDROmorphone HCL PF 2 MG/ML VIAL IV PUSH PRN ×3 (00:50→23:15)
[2018-01-06 04:29] VITALS: BP 103/71; PULSE 79; RESP 18; TEMP 98; O2SAT 100
[2018-01-06 07:37] VITALS: O2SAT 100
[2018-01-06] MEDS: RESP: ALBUTEROL 2.5 MG/IPRATROPIUM 0.5 MG NEB (SCH) NEB ×2 (07:37→11:34)
[2018-01-06 08:27] VITALS: BP 105/68; PULSE 74; RESP 20; TEMP 98; O2SAT 100
[2018-01-06] MEDS: TIOTROPIUM BROMIDE 18 MCG INH INH SCH (09:00)
[2018-01-06] MEDS: ENOXAPARIN SODIUM 40 MG/0.4 ML SYRINGE SQ SCH (09:02)
[2018-01-06] MEDS: predniSONE 20 MG TAB PO SCH (09:02)
[2018-01-06] MEDS: FAMOTIDINE 20 MG TAB PO SCH ×2 (09:02→20:31)
[2018-01-06] MEDS: LIDOCAINE HCL 5% PATCH T-DERMAL SCH (09:02)
[2018-01-06] MEDS: DOCUSATE SODIUM 50 MG/SENNA 8.6 MG TAB PO SCH ×2 (09:03→20:31)
[2018-01-06] MEDS: guaiFENesin E.R. 600 MG TAB PO SCH ×2 (09:03→20:31)
[2018-01-06] MEDS: LEVOFLOXACIN 750 MG TAB PO SCH (09:03)
[2018-01-06] MEDS: METOPROLOL TARTRATE 25 MG TAB PO SCH ×2 (09:03→20:31)
[2018-01-06] MEDS: BUDESONIDE-FORMOTEROL 160/4.5 MCG INHALER INH SCH ×2 (09:17→20:46)
[2018-01-06] MEDS: SODIUM CHLORIDE 0.9% FLUSH 10 ML FLUSH IV FLUSH SCH ×2 (09:17→20:32)
[2018-01-06 12:47] VITALS: BP 105/67; PULSE 79; RESP 18; TEMP 97.9; O2SAT 94
[2018-01-06] MEDS ORDERED: PROMETHAZINE HCL SYRUP 6.25 MG/5 ML CUP PO PRN (15:45)
--- NOTE | 2018-01-06 16:09 | HHI.PR ---
Subjective Remarks Patient states that his shortness of breath comes and goes. At times he needs a nonrebreather but then he he uses a nasal cannula. He has pains at the site of insertion of the chest tube, Especially with coughing Objective Vitals Vital Signs Date Time Temp Pulse Resp B/P (MAP) Pulse Ox O2 Delivery O2 Flow Rate FiO2 01/06/18 12:47 97.9 79 18 105/67 (80) 94 01/06/18 08:27 98.0 74 20 105/68 (80) 100 01/06/18 07:37 100 Non-Rebreather 15.00 01/06/18 05:57 99 Nasal Cannula 5.00 Humidified 01/06/18 04:29 98.0 79 18 103/71 (82) 100 01/05/18 23:10 Nasal Cannula 5.00 01/05/18 20:25 97.9 97 17 104/63 (77) 95 01/05/18 19:40 96 Nasal Cannula 5.00 Humidified I/O 01/05/18 01/05/18 01/05/18 01/06/18 01/06/18 01/06/18 07:00 15:00 23:00 07:00 15:00 23:00 Intake Total 360 ml Output Total 1000 ml 925 ml Balance -1000 ml -925 ml 360 ml Intake Oral 360 ml Output Urine Total 1000 ml 925 ml # Voids 2 3 # Bowel Movements 1 Result Diagram: 01/03/18 1200 01/03/18 1200 Imaging Last Impressions Chest X-Ray 01/05/18 0600 Signed Impressions: Service Date/Time: December 06:27 - CONCLUSION: Stable appearance of the chest with a left pigtail catheter. Blebs in the apices left greater than right. Widespread interstitial lung disease. Leonid Khalil MD Objective Remarks GENERAL: Alert and awake. Answers questions appropriately. Sitting up on bed EYES: Extraocular motion is intact. NECK: trachea midline. CARDIOVASCULAR: Regular rate and rhythm without murmurs RESPIRATORY: Decreased breath sounds, left chest tube in place. No accessory muscle use. GASTROINTESTINAL: Abdomen soft, non-tender, nondistended. MUSCULOSKELETAL: No edema. Procedures Chest tube placement A/P Problem List: (1) Recurrent spontaneous pneumothorax ICD Code: J93.83 - Other pneumothorax Status: Acute (2) COPD (chronic obstructive pulmonary disease) ICD Code: J44.9 - Chronic obstructive pulmonary disease, unspecified (3) Pulmonary fibrosis ICD Code: J84.10 - Pulmonary fibrosis, unspecified Status: Chronic Assessment and Plan Mr. Price is a 47 year old male with a history of COPD, pulmonary fibrosis s/p VATS, bleb resection, pleurodesis by Cardiothoracic surgery on 08/23/2014 who was admitted to the hospital on 12/25/2017 due to shortness of breath. He was found to have a left sided pneumothorax and underwent left sided chest tube placement. On 12/29/2017 his chest tube dislodged and he went into significant respiratory distress, diaphoresis and hypoxemic. Emergent chest tube was placed again. He was managed in the ICU and transferred to the floor on 01/04/2018. Pulmonary has been following patient closely. - Left sided recurrent pneumothorax - Pulmonary fibrosis - COPD - Probable pneumonia - Supplemental O2 to keep O2 sat > 90%. - DuoNeb, Symbicort, Spiriva, Prednisone 30mg Qday. - Pulmonary following. Pulmonary is discussing with [facility] for endobronchial valve. - [id number] was 144 (100-200) on 12/15/2017. - s/p Zosyn 4.5g Q8hrs and now currently on p.o. Levaquin. - Hypertension-stable - Continue Amlodipine 10mg Qday and metoprolol 25mg BID. Full code. Lovenox. Discharge Planning Patient still has a chest tube in place. Not ready for discharge Priti Gonzalez MD Jan 06, 2018 16:09
[2018-01-06 16:39] VITALS: BP 106/66; PULSE 73; RESP 18; TEMP 98.5; O2SAT 97
[2018-01-06 20:00] VITALS: BP 108/74; PULSE 91; RESP 18; TEMP 98.4; O2SAT 91
--- NOTE | 2018-01-06 20:15 | HHI.PR ---
Subjective Remarks No new Complaints. Chest tube is in and has a mild Leak. On O2 6 L and a NRB mask. Rpt CXR shows a stable left Pneumothorax. Objective Vital Signs Date Time Temp Pulse Resp B/P (MAP) Pulse Ox O2 Delivery O2 Flow Rate FiO2 01/06/18 16:39 98.5 73 18 106/66 (79) 97 01/06/18 12:47 97.9 79 18 105/67 (80) 94 01/06/18 08:27 98.0 74 20 105/68 (80) 100 01/06/18 07:37 100 Non-Rebreather 15.00 01/06/18 05:57 99 Nasal Cannula 5.00 Humidified 01/06/18 04:29 98.0 79 18 103/71 (82) 100 01/05/18 23:10 Nasal Cannula 5.00 01/05/18 20:25 97.9 97 17 104/63 (77) 95 I/O 01/05/18 01/05/18 01/05/18 01/06/18 01/06/18 01/06/18 07:00 15:00 23:00 07:00 15:00 23:00 Intake Total 360 ml 480 ml Output Total 1000 ml 925 ml Balance -1000 ml -925 ml 360 ml 480 ml Intake Oral 360 ml 480 ml Output Urine Total 1000 ml 925 ml # Voids 2 3 3 # Bowel Movements 1 Result Diagram: 01/03/18 1200 01/03/18 1200 Objective Remarks GENERAL: This is a well-built middle-aged man who is alert and in no acute distress. No pallor or icterus, or edema. HEAD, EYES, EARS, NOSE, THROAT: Head normocephalic. The pupils are reactive and equal. Tongue is moist. Throat clear. NECK: The neck is supple. No venous distention. CHEST: Decreased breath sounds over the left mid and upper chest with occasional crackles at the lung bases.Chest Tube is in left chest. HEART: Heart sounds are regular. S1 and S2. No murmur. No S3. ABDOMEN: Abdomen soft and without masses. No organomegaly or tenderness. The bowel sounds are active. EXTREMITIES: No lesions. No edema. NEUROLOGIC: Reflexes are normal with no gross motor deficits. SKIN: No lesions. Assessment and Plan Assessment and Plan IMPRESSION: 1. Recurrent left pneumothorax with hypoxemia. 2. COPD and chronic bronchitis with bronchiectasis. 3. Basilar pulmonary fibrosis. 4. Hypertension. Plan : 1. Cont Chest tube to wall suction 2. CXR in am 3. O2 5 L.and NRB mask if he desats <90 4. Duonebs qid. 5. Continue antibiotics PO . 6. IS at bedside q3h 7. Labs in am 8.Cont prednisone to 30 mg daily Prerna Santos MD Jan 06, 2018 20:15
[2018-01-06] MEDS: REMOVE OLD LIDOCAINE PATCH T-DERMAL SCH (21:00)
[2018-01-06] MEDS: AMOXICILLIN/CLAVULANATE K 500 MG TAB PO SCH (21:00)
[2018-01-07] VITALS (7 sets, daily range): BP systolic 101–118; BP diastolic 64–86; PULSE 70–100; RESP 17–20; TEMP 97.5–98; O2SAT 93–97
--- NOTE | 2018-01-07 06:44 | RADRPT ---
EXAM DATE/TIME: 01/07/2018 06:06 [facility] COMPARISON: CHEST SINGLE AP, January 05, 2018, 6:27. INDICATIONS : Pneumothorax. MEDICAL HISTORY : pulmonary fibrosis, pneumothorax SURGICAL HISTORY : chest tube ENCOUNTER: Subsequent ACUITY: 2 months PAIN SCORE: 9/10 LOCATION: Left chest FINDINGS: There is a small loculated pneumothorax left lateral chest. There is mild improvement in the aeration of the lungs since the prior exam with moderate mixed interstitial and alveolar process remaining bi laterally. The rest of the examination has not significantly changed. CONCLUSION: Slight improvement in the aeration of the lungs with a small loculated pneumothorax on the left. Francia Sky MD on January 07, 2018 at 6:41 Board Certified Radiologist. This report was verified electronically.
[2018-01-07] MEDS: AMOXICILLIN/CLAVULANATE K 500 MG TAB PO SCH ×2 (09:00→20:56)
[2018-01-07] MEDS: SODIUM CHLORIDE 0.9% FLUSH 10 ML FLUSH IV FLUSH SCH ×2 (09:00→20:42)
[2018-01-07] MEDS: HYDROmorphone HCL PF 2 MG/ML VIAL IV PUSH PRN ×4 (09:09→22:23)
[2018-01-07] MEDS: BUDESONIDE-FORMOTEROL 160/4.5 MCG INHALER INH SCH ×2 (09:14→20:43)
[2018-01-07] MEDS: TIOTROPIUM BROMIDE 18 MCG INH INH SCH (09:17)
[2018-01-07] MEDS: guaiFENesin E.R. 600 MG TAB PO SCH ×2 (09:19→20:43)
[2018-01-07] MEDS: predniSONE 20 MG TAB PO SCH (09:19)
[2018-01-07] MEDS: DOCUSATE SODIUM 50 MG/SENNA 8.6 MG TAB PO SCH ×2 (09:19→20:44)
[2018-01-07] MEDS: FAMOTIDINE 20 MG TAB PO SCH ×2 (09:20→20:44)
[2018-01-07] MEDS: LEVOFLOXACIN 750 MG TAB PO SCH (09:20)
[2018-01-07] MEDS: METOPROLOL TARTRATE 25 MG TAB PO SCH ×2 (09:20→20:41)
[2018-01-07] MEDS: LIDOCAINE HCL 5% PATCH T-DERMAL SCH (13:11)
[2018-01-07] MEDS: ENOXAPARIN SODIUM 40 MG/0.4 ML SYRINGE SQ SCH (13:13)
--- NOTE | 2018-01-07 13:17 | HHI.PR ---
Subjective Remarks Pt feels "ok". no worsening SOB. no nausea or vomiting Objective Vitals Vital Signs Date Time Temp Pulse Resp B/P (MAP) Pulse Ox O2 Delivery O2 Flow Rate FiO2 01/07/18 12:47 95 Nasal Cannula 5.00 01/07/18 11:57 97.7 78 17 103/67 (79) 96 01/07/18 08:00 97.9 70 17 111/64 (80) 96 01/07/18 05:26 93 Nasal Cannula 4.00 01/07/18 04:00 98.0 100 18 118/71 (87) 96 01/07/18 00:00 98.0 88 20 115/86 (96) 93 01/06/18 23:44 96 Nasal Cannula 4.00 01/06/18 20:00 98.4 91 18 108/74 (85) 91 01/06/18 16:39 98.5 73 18 106/66 (79) 97 I/O 01/06/18 01/06/18 01/06/18 01/07/18 01/07/18 01/07/18 07:00 15:00 23:00 07:00 15:00 23:00 Intake Total 360 ml 480 ml Balance 360 ml 480 ml Intake Oral 360 ml 480 ml # Voids 3 3 3 # Bowel Movements 1 Result Diagram: 01/03/18 1200 01/03/18 1200 Imaging Last Impressions Chest X-Ray 01/07/18 0600 Signed Impressions: Service Date/Time: Sunday, January 07, 2018 06:06 - CONCLUSION: Slight improvement in the aeration of the lungs with a small loculated pneumothorax on the left. Francia Sky MD Objective Remarks GENERAL: Alert and awake. Answers questions appropriately. EYES: Extraocular motion is intact. NECK: trachea midline. CARDIOVASCULAR: Regular rate and rhythm without murmurs RESPIRATORY: Decreased breath sounds, left chest tube in place. No accessory muscle use. GASTROINTESTINAL: Abdomen soft, non-tender, nondistended. MUSCULOSKELETAL: No edema. Procedures Chest tube placement A/P Problem List: (1) Recurrent spontaneous pneumothorax ICD Code: J93.83 - Other pneumothorax Status: Acute (2) COPD (chronic obstructive pulmonary disease) ICD Code: J44.9 - Chronic obstructive pulmonary disease, unspecified (3) Pulmonary fibrosis ICD Code: J84.10 - Pulmonary fibrosis, unspecified Status: Chronic Assessment and Plan Mr. Price is a 47 year old male with a history of COPD, pulmonary fibrosis s/p VATS, bleb resection, pleurodesis by Cardiothoracic surgery on 08/23/2014 who was admitted to the hospital on 12/25/2017 due to shortness of breath. He was found to have a left sided pneumothorax and underwent left sided chest tube placement. On 12/29/2017 his chest tube dislodged and he went into significant respiratory distress, diaphoresis and hypoxemic. Emergent chest tube was placed again. He was managed in the ICU and transferred to the floor on 01/04/2018. Pulmonary has been following patient closely. - Left sided recurrent pneumothorax - Pulmonary fibrosis - COPD - Probable pneumonia - Supplemental O2 to keep O2 sat > 90%. - DuoNeb, Symbicort, Spiriva, Prednisone 30mg Qday. - Pulmonary following. Pulmonary is discussing with [facility] for endobronchial valve. - [id number] was 144 (100-200) on 12/15/2017. - s/p Zosyn 4.5g Q8hrs and now currently on p.o. Levaquin. -repeat chest x-ray shows slight improvement in aeration of lungs w small loculated pneumothorax on the Left. - Hypertension-stable - Continue Amlodipine 10mg Qday and metoprolol 25mg BID. Full code. Lovenox. Discharge Planning Patient still has a chest tube in place. Not ready for discharge Priti Gonzalez MD Jan 07, 2018 13:17
[2018-01-07] MEDS: REMOVE OLD LIDOCAINE PATCH T-DERMAL SCH (21:00)
[2018-01-08] VITALS (8 sets, daily range): BP systolic 100–125; BP diastolic 64–76; PULSE 64–87; RESP 17–20; TEMP 97.4–98.3; O2SAT 91–97
[2018-01-08] MEDS: HYDROmorphone HCL PF 2 MG/ML VIAL IV PUSH PRN ×3 (10:02→21:41)
[2018-01-08] MEDS: LIDOCAINE HCL 5% PATCH T-DERMAL SCH (10:08)
[2018-01-08] MEDS: TIOTROPIUM BROMIDE 18 MCG INH INH SCH (10:10)
[2018-01-08] MEDS: DOCUSATE SODIUM 50 MG/SENNA 8.6 MG TAB PO SCH ×2 (10:12→21:42)
[2018-01-08] MEDS: LEVOFLOXACIN 750 MG TAB PO SCH (10:12)
[2018-01-08] MEDS: METOPROLOL TARTRATE 25 MG TAB PO SCH ×2 (10:12→21:42)
[2018-01-08] MEDS: FAMOTIDINE 20 MG TAB PO SCH ×2 (10:12→21:42)
[2018-01-08] MEDS: AMOXICILLIN/CLAVULANATE K 500 MG TAB PO SCH ×2 (10:12→21:46)
[2018-01-08] MEDS: guaiFENesin E.R. 600 MG TAB PO SCH ×2 (10:12→21:42)
[2018-01-08] MEDS: predniSONE 20 MG TAB PO SCH (10:12)
[2018-01-08] MEDS: ENOXAPARIN SODIUM 40 MG/0.4 ML SYRINGE SQ SCH (10:13)
[2018-01-08] MEDS: SODIUM CHLORIDE 0.9% FLUSH 10 ML FLUSH IV FLUSH SCH ×2 (10:14→21:42)
[2018-01-08] MEDS: BUDESONIDE-FORMOTEROL 160/4.5 MCG INHALER INH SCH ×2 (10:23→21:45)
[2018-01-08 11:51] LABS: AUTOMATED NEUTROPHIL # 4.7 TH/MM3 (1.8-7.7); BASOPHIL % 0.5 % (0.0-2.0); EOSINOPHIL % 0.6 % (0.0-4.0); HEMATOCRIT 38.3 % (39.0-51.0); HEMOGLOBIN 12.7 GM/DL (13.0-17.0); LYMPH % 31.6 % (9.0-44.0); LYMPHOCYTE # 2.3 TH/MM3 (1.0-4.8); MEAN CELL VOLUME 84.7 FL (80.0-100.0); MEAN PLATELET VOLUME 6.9 FL (7.0-11.0); MONO % 3.6 % (0.0-8.0); MONOCYTE # 0.3 TH/MM3 (0-0.9); NEUT % 63.7 % (16.0-70.0); PLATELET COUNT 350 TH/MM3 (150-450); RED BLOOD COUNT 4.52 MIL/MM3 (4.50-5.90); RED CELL DISTRIBUTION WIDTH 14.6 % (11.6-17.2); WHITE BLOOD COUNT 7.4 TH/MM3 (4.0-11.0)
[2018-01-08 12:16] LABS: BICARBONATE 30.4 MEQ/L (21.0-32.0); CALCIUM 9.2 MG/DL (8.5-10.1); CREATININE 0.76 MG/DL (0.60-1.30)
[2018-01-08] MEDS: RESP: ALBUTEROL 2.5 MG/3 ML NEB (PRN) NEB (12:45)
--- NOTE | 2018-01-08 15:35 | HHI.PR ---
Subjective Remarks Pt evaluated around lunch time. Pt denied any worsening SOB, CP/n/v. Pt states he feels the same, no changes Objective Vitals Vital Signs Date Time Temp Pulse Resp B/P (MAP) Pulse Ox O2 Delivery O2 Flow Rate FiO2 01/08/18 12:45 93 Nasal Cannula 5.00 01/08/18 12:00 97.5 80 18 101/66 (78) 95 01/08/18 11:00 95 Nasal Cannula 5.00 Humidified 01/08/18 08:00 98.3 72 17 111/76 (88) 94 01/08/18 04:00 97.8 69 20 125/70 (88) 97 01/08/18 00:00 97.4 64 20 109/67 (81) 91 01/07/18 20:15 Nasal Cannula 5.00 Humidified 01/07/18 20:00 97.5 76 20 117/72 (87) 94 01/07/18 17:13 97 Nasal Cannula 5.00 01/07/18 16:21 97.8 74 19 101/65 (77) 97 I/O 01/07/18 01/07/18 01/07/18 01/08/18 01/08/18 01/08/18 06:59 14:59 22:59 06:59 14:59 22:59 Intake Total 720 ml Output Total 1350 ml 10 ml Balance -630 ml -10 ml Intake Oral 720 ml Output Urine Total 1350 ml Chest Tube Drainage Total 10 ml # Voids 3 Result Diagram: 01/08/18 1103 01/08/18 1103 Imaging Last Impressions Chest X-Ray 01/07/18 0600 Signed Impressions: Service Date/Time: Sunday, January 07, 2018 06:06 - CONCLUSION: Slight improvement in the aeration of the lungs with a small loculated pneumothorax on the left. Francia Sky MD Objective Remarks GENERAL: Alert and awake. Answers questions appropriately. EYES: Extraocular motion is intact. NECK: trachea midline. CARDIOVASCULAR: Regular rate and rhythm without murmurs RESPIRATORY: Decreased breath sounds, left chest tube in place. No accessory muscle use. GASTROINTESTINAL: Abdomen soft, non-tender, nondistended. MUSCULOSKELETAL: No edema. Procedures Chest tube placement A/P Problem List: (1) Recurrent spontaneous pneumothorax ICD Code: J93.83 - Other pneumothorax Status: Acute (2) COPD (chronic obstructive pulmonary disease) ICD Code: J44.9 - Chronic obstructive pulmonary disease, unspecified (3) Pulmonary fibrosis ICD Code: J84.10 - Pulmonary fibrosis, unspecified Status: Chronic Assessment and Plan Mr. Price is a 47 year old male with a history of COPD, pulmonary fibrosis s/p VATS, bleb resection, pleurodesis by Cardiothoracic surgery on 08/23/2014 who was admitted to the hospital on 12/25/2017 due to shortness of breath. He was found to have a left sided pneumothorax and underwent left sided chest tube placement. On 12/29/2017 his chest tube dislodged and he went into significant respiratory distress, diaphoresis and hypoxemic. Emergent chest tube was placed again. He was managed in the ICU and transferred to the floor on 01/04/2018. Pulmonary has been following patient closely. - Left sided recurrent pneumothorax - Pulmonary fibrosis - COPD - Probable pneumonia - Supplemental O2 to keep O2 sat > 90%. - DuoNeb, Symbicort, Spiriva, Prednisone 30mg Qday. - Pulmonary following. Pulmonary is discussing with [facility] for endobronchial valve. - [id number] was 144 (100-200) on 12/15/2017. - s/p Zosyn 4.5g Q8hrs and now currently on p.o. Levaquin end date (01/11/18) . - repeat chest x-ray shows slight improvement in aeration of lungs w small loculated pneumothorax on the Left. - Hypertension-stable - Continue Amlodipine 10mg Qday and metoprolol 25mg BID. Full code. Lovenox. Discharge Planning Patient still has a chest tube in place, pulm managing. Not ready for discharge Priti Gonzalez MD Jan 08, 2018 15:35
[2018-01-08] MEDS: REMOVE OLD LIDOCAINE PATCH T-DERMAL SCH (21:47)
[2018-01-09] VITALS: BP 102/73; PULSE 64; RESP 18; TEMP 97.8; O2SAT 98
[2018-01-09 04:00] VITALS: BP 111/75; PULSE 77; RESP 18; TEMP 98.1; O2SAT 95
[2018-01-09] MEDS: HYDROmorphone HCL PF 2 MG/ML VIAL IV PUSH PRN ×2 (06:41→23:04)
[2018-01-09 07:25] VITALS: BP 110/78; PULSE 66; RESP 18; TEMP 97.8; O2SAT 94
[2018-01-09] MEDS: FAMOTIDINE 20 MG TAB PO SCH ×2 (09:21→23:04)
[2018-01-09] MEDS: DOCUSATE SODIUM 50 MG/SENNA 8.6 MG TAB PO SCH ×2 (09:22→23:05)
[2018-01-09] MEDS: AMOXICILLIN/CLAVULANATE K 500 MG TAB PO SCH ×2 (09:22→21:00)
[2018-01-09] MEDS: LEVOFLOXACIN 750 MG TAB PO SCH (09:23)
[2018-01-09] MEDS: guaiFENesin E.R. 600 MG TAB PO SCH ×2 (09:23→23:05)
[2018-01-09] MEDS: METOPROLOL TARTRATE 25 MG TAB PO SCH ×2 (09:23→23:04)
[2018-01-09] MEDS: ENOXAPARIN SODIUM 40 MG/0.4 ML SYRINGE SQ SCH (09:23)
[2018-01-09] MEDS: predniSONE 20 MG TAB PO SCH (09:23)
[2018-01-09] MEDS: LIDOCAINE HCL 5% PATCH T-DERMAL SCH (09:24)
[2018-01-09] MEDS: SODIUM CHLORIDE 0.9% FLUSH 10 ML FLUSH IV FLUSH SCH ×2 (09:25→23:05)
[2018-01-09] MEDS: TIOTROPIUM BROMIDE 18 MCG INH INH SCH (09:25)
[2018-01-09] MEDS: BUDESONIDE-FORMOTEROL 160/4.5 MCG INHALER INH SCH ×2 (09:25→21:00)
[2018-01-09 10:30] LABS: AUTOMATED NEUTROPHIL # 4.6 TH/MM3 (1.8-7.7); BASOPHIL % 0.6 % (0.0-2.0); EOSINOPHIL % 0.5 % (0.0-4.0); HEMATOCRIT 39.4 % (39.0-51.0); HEMOGLOBIN 12.9 GM/DL (13.0-17.0); LYMPH % 33.3 % (9.0-44.0); LYMPHOCYTE # 2.5 TH/MM3 (1.0-4.8); MEAN CELL VOLUME 85.1 FL (80.0-100.0); MEAN CORPUSCULAR HEMOGLOBIN 27.9 PG (27.0-34.0); MEAN CORPUSCULAR HGB CONC 32.8 % (32.0-36.0); MEAN PLATELET VOLUME 7.2 FL (7.0-11.0); MONO % 4.7 % (0.0-8.0); MONOCYTE # 0.4 TH/MM3 (0-0.9); NEUT % 60.9 % (16.0-70.0); PLATELET COUNT 392 TH/MM3 (150-450); RED BLOOD COUNT 4.63 MIL/MM3 (4.50-5.90); RED CELL DISTRIBUTION WIDTH 14.3 % (11.6-17.2); WHITE BLOOD COUNT 7.5 TH/MM3 (4.0-11.0)
[2018-01-09 10:51] LABS: BICARBONATE 30.9 MEQ/L (21.0-32.0); CALCIUM 9.4 MG/DL (8.5-10.1); CREATININE 0.8 MG/DL (0.60-1.30)
--- NOTE | 2018-01-09 11:39 | HHI.PR ---
Subjective Remarks Follow-up pneumothorax. Denies shortness of breath and chest pain. Currently on 5 L.Dw RN Objective Vitals Vital Signs Date Time Temp Pulse Resp B/P (MAP) Pulse Ox O2 Delivery O2 Flow Rate FiO2 01/09/18 09:30 Nasal Cannula 5.00 01/09/18 07:25 97.8 66 18 110/78 (89) 94 01/09/18 04:00 98.1 77 18 111/75 (87) 95 01/09/18 00:00 97.8 64 18 102/73 (83) 98 01/08/18 21:00 Nasal Cannula 5.00 Humidified 01/08/18 20:00 97.8 87 17 112/71 (85) 95 01/08/18 17:44 95 Nasal Cannula 5.00 01/08/18 16:00 97.9 71 17 100/64 (76) 95 01/08/18 12:45 93 Nasal Cannula 5.00 01/08/18 12:00 97.5 80 18 101/66 (78) 95 I/O 01/08/18 01/08/18 01/08/18 01/09/18 01/09/18 01/09/18 07:00 15:00 23:00 07:00 15:00 23:00 Intake Total 960 ml 800 ml Output Total 10 ml 625 ml 710 ml Balance -10 ml 335 ml 90 ml Intake Oral 960 ml 800 ml Output Urine Total 625 ml 700 ml Chest Tube Drainage Total 10 ml 10 ml # Bowel Movements 0 0 Result Diagram: 01/09/1892601/09/18926 Imaging Last Impressions Chest X-Ray 01/07/18 06 Signed Impressions: Service Date/Time: Sunday, January 07, 2018 06:06 - CONCLUSION: Slight improvement in the aeration of the lungs with a small loculated pneumothorax on the left. Francia Sky MD Objective Remarks GENERAL: Resting comfortably in bed currently on nasal cannula. SKIN: No rashes, ecchymoses or lesions. Cool and dry. CARDIOVASCULAR: Regular rate and rhythm without murmurs, gallops, or rubs. RESPIRATORY: No wheezes with Decreased breath sounds on the left. CT on the left GASTROINTESTINAL: Abdomen soft, non-tender, nondistended. No guarding. MUSCULOSKELETAL: Extremities without clubbing, cyanosis, or edema. No joint tenderness, effusion, or edema noted. NEUROLOGICAL: Awake and alert. Cranial nerves II through XII intact. Motor and sensory grossly within normal limits. Normal speech. Procedures Chest tube placement A/P Problem List: (1) Recurrent spontaneous pneumothorax ICD Code: J93.83 - Other pneumothorax Status: Acute (2) COPD (chronic obstructive pulmonary disease) ICD Code: J44.9 - Chronic obstructive pulmonary disease, unspecified (3) Pulmonary fibrosis ICD Code: J84.10 - Pulmonary fibrosis, unspecified Status: Chronic Assessment and Plan Mr. Price is a 47 year old male with a history of COPD, pulmonary fibrosis s/p VATS, bleb resection, pleurodesis by Cardiothoracic surgery on 08/23/2014 who was admitted to the hospital on 12/25/2017 due to shortness of breath. He was found to have a left sided pneumothorax and underwent left sided chest tube placement. On 12/29/2017 his chest tube dislodged and he went into significant respiratory distress, diaphoresis and hypoxemic. Emergent chest tube was placed again. He was managed in the ICU and transferred to the floor on 01/04/2018. Pulmonary has been following patient closely. - Left sided recurrent pneumothorax - Pulmonary fibrosis - COPD - Probable pneumonia - Supplemental O2 to keep O2 sat > 90%. - DuoNeb, Symbicort, Spiriva, wean Prednisone - Pulmonary following. Pulmonary is discussing with [facility] for endobronchial valve. - [id number] was 144 (100-200) on 12/15/2017. - s/p Zosyn 4.5g Q8hrs and now currently on p.o. Levaquin end date (01/11/18) . - repeat chest x-ray shows slight improvement in aeration of lungs w small loculated pneumothorax on the Left. - Hypertension-stable - Continue Amlodipine 10mg Qday and metoprolol 25mg BID. Full code. Lovenox. Discharge Planning not ready for dc still with CT Mannie Mcclain MD Jan 09, 2018 11:39
[2018-01-09] MEDS ORDERED: SENNOSIDES 8.6 MG TAB PO PRN (11:45)
[2018-01-09] MEDS ORDERED: LACTULOSE SYRUP 20 GM/30 ML CUP PO PRN (11:45)
[2018-01-09] MEDS ORDERED: MAGNESIUM HYDROXIDE SUSP 30 ML CUP PO PRN (11:45)
[2018-01-09] MEDS ORDERED: BISACODYL 10 MG SUPP RECTAL PRN (11:45)
[2018-01-09 12:00] VITALS: BP 97/55; PULSE 75; RESP 18; TEMP 98.2; O2SAT 97
[2018-01-09 16:00] VITALS: BP 109/69; PULSE 75; RESP 18; TEMP 98.1; O2SAT 98
[2018-01-09 19:35] VITALS: BP 116/75; PULSE 89; RESP 18; TEMP 97.9; O2SAT 96
--- NOTE | 2018-01-09 19:44 | HHI.PR ---
Subjective Remarks No new Complaints. Chest tube is in and has a mild Leak. On O2 5 L and a NRB mask. Rpt CXR shows a small left Pneumothorax. Objective Vital Signs Date Time Temp Pulse Resp B/P (MAP) Pulse Ox O2 Delivery O2 Flow Rate FiO2 01/09/18 16:00 98.1 75 18 109/69 (82) 98 01/09/18 12:00 98.2 75 18 97/55 (69) 97 01/09/18 09:30 Nasal Cannula 5.00 01/09/18 07:25 97.8 66 18 110/78 (89) 94 01/09/18 04:00 98.1 77 18 111/75 (87) 95 01/09/18 00:00 97.8 64 18 102/73 (83) 98 01/08/18 21:00 Nasal Cannula 5.00 Humidified 01/08/18 20:00 97.8 87 17 112/71 (85) 95 I/O 01/08/18 01/08/18 01/08/18 01/09/18 01/09/18 01/09/18 07:00 15:00 23:00 07:00 15:00 23:00 Intake Total 960 ml 800 ml Output Total 10 ml 625 ml 710 ml Balance -10 ml 335 ml 90 ml Intake Oral 960 ml 800 ml Output Urine Total 625 ml 700 ml Chest Tube Drainage Total 10 ml 10 ml # Voids 3 # Bowel Movements 0 0 2 Result Diagram: 01/09/1892601/09/18926 Objective Remarks GENERAL: This is a well-built middle-aged man who is alert and in no acute distress. No pallor or icterus, or edema. HEAD, EYES, EARS, NOSE, THROAT: Head normocephalic. The pupils are reactive and equal. Tongue is moist. Throat clear. NECK: The neck is supple. No venous distention. CHEST: Decreased breath sounds over the left mid and upper chest with occasional crackles at the lung bases.Chest Tube is in left chest. HEART: Heart sounds are regular. S1 and S2. No murmur. No S3. ABDOMEN: Abdomen soft and without masses. No organomegaly or tenderness. The bowel sounds are active. EXTREMITIES: No lesions. No edema. NEUROLOGIC: Reflexes are normal with no gross motor deficits. SKIN: No lesions. Assessment and Plan Assessment and Plan IMPRESSION: 1. Recurrent left pneumothorax with hypoxemia. 2. COPD and chronic bronchitis with bronchiectasis. 3. Basilar pulmonary fibrosis. 4. Hypertension. Plan : 1. Cont Chest tube to wall suction 2. Rpt CXR in am 3. O2 5 L.and NRB mask if he desats <90 4. Duonebs qid. 5. Continue antibiotics PO . 6. IS at bedside q3h 7. Pain control with [place] PRN 8.Taper prednisone to 20 mg daily Prerna Santos MD Jan 09, 2018 19:44
[2018-01-09] MEDS: REMOVE OLD LIDOCAINE PATCH T-DERMAL SCH (21:00)
[2018-01-10] VITALS (8 sets, daily range): BP systolic 105–126; BP diastolic 65–82; PULSE 67–107; RESP 18; TEMP 97.5–98.4; O2SAT 91–97
[2018-01-10] MEDS: HYDROmorphone HCL PF 2 MG/ML VIAL IV PUSH PRN ×4 (05:31→22:27)
--- NOTE | 2018-01-10 06:58 | RADRPT ---
EXAM DATE/TIME: 01/10/2018 06:04 [facility] COMPARISON: CHEST SINGLE AP, January 07, 2018, 6:06. INDICATIONS : Coughing, short of breath, evaluate pneumothorax MEDICAL HISTORY : pulmonary fibrosis, pneumothorax SURGICAL HISTORY : chest tube ENCOUNTER: Subsequent ACUITY: 2 months PAIN SCORE: 5/10 LOCATION: Bilateral chest FINDINGS: A single AP portable erect view of the chest was obtained and demonstrates coarse interstitial opacit ies in both lungs without significant change. The known small lateral left pneumothorax is unchanged. Bullous change remains in the left upper lobe. The heart size is at the upper limits of normal. Ther e is no effusion. There is no new consolidation. The study is more Midinspiratory with crowding of th e lung vasculature. CONCLUS Stable loculated left pneumothorax. More Midinspiratory study with coarse interstitial opacities remaining right greater than left. Saleem Mejia MD on January 10, 2018 at 6:55 Board Certified Radiologist. This report was verified electronically.
[2018-01-10] MEDS: guaiFENesin E.R. 600 MG TAB PO SCH ×2 (08:52→21:00)
[2018-01-10] MEDS: predniSONE 20 MG TAB PO SCH (08:52)
[2018-01-10] MEDS: AMOXICILLIN/CLAVULANATE K 500 MG TAB PO SCH ×2 (08:52→20:55)
[2018-01-10] MEDS: FAMOTIDINE 20 MG TAB PO SCH ×2 (08:52→20:55)
[2018-01-10] MEDS: DOCUSATE SODIUM 50 MG/SENNA 8.6 MG TAB PO SCH ×2 (08:52→21:00)
[2018-01-10] MEDS: METOPROLOL TARTRATE 25 MG TAB PO SCH ×2 (08:52→20:55)
[2018-01-10] MEDS: LIDOCAINE HCL 5% PATCH T-DERMAL SCH (08:53)
[2018-01-10] MEDS: ENOXAPARIN SODIUM 40 MG/0.4 ML SYRINGE SQ SCH (08:53)
[2018-01-10] MEDS: SODIUM CHLORIDE 0.9% FLUSH 10 ML FLUSH IV FLUSH SCH ×2 (08:56→20:54)
[2018-01-10] MEDS: BUDESONIDE-FORMOTEROL 160/4.5 MCG INHALER INH SCH ×2 (08:57→20:54)
[2018-01-10] MEDS: TIOTROPIUM BROMIDE 18 MCG INH INH SCH (08:57)
--- NOTE | 2018-01-10 12:39 | HHI.PR ---
Subjective Remarks No new Complaints. Chest tube is in . On O2 5 L. CXR shows a small left Pneumothorax. Objective Vital Signs Date Time Temp Pulse Resp B/P (MAP) Pulse Ox O2 Delivery O2 Flow Rate FiO2 01/10/18 11:45 98.4 75 18 105/65 (78) 92 01/10/18 09:05 Nasal Cannula 4.00 01/10/18 07:59 97.6 67 18 105/69 (81) 95 01/10/18 04:00 98.0 78 18 109/76 (87) 97 01/10/18 00:00 98.2 90 18 118/78 (91) 93 01/09/18 20:00 Nasal Cannula 5.00 100 01/09/18 19:35 97.9 89 18 116/75 (89) 96 01/09/18 16:00 98.1 75 18 109/69 (82) 98 I/O 01/09/18 01/09/18 01/09/18 01/10/18 01/10/18 01/10/18 07:00 15:00 23:00 07:00 15:00 23:00 Intake Total 800 ml Output Total 710 ml 40 ml 1280 ml Balance 90 ml -40 ml -1280 ml Intake Oral 800 ml Output Urine Total 700 ml 1200 ml Chest Tube Drainage Total 10 ml 40 ml 40 ml Drainage Total 40 ml # Voids 3 # Bowel Movements 0 2 Result Diagram: 01/09/1892601/09/18926 Objective Remarks GENERAL: This is a well-built middle-aged man who is alert and in no acute distress. No pallor or icterus, or edema. HEAD, EYES, EARS, NOSE, THROAT: Head normocephalic. The pupils are reactive and equal. Tongue is moist. Throat clear. NECK: The neck is supple. No venous distention. CHEST: Decreased breath sounds over the left mid and upper chest with occasional crackles at the lung bases.Chest Tube is in left chest. HEART: Heart sounds are regular. S1 and S2. No murmur. No S3. ABDOMEN: Abdomen soft and without masses. No organomegaly or tenderness. The bowel sounds are active. EXTREMITIES: No lesions. No edema. NEUROLOGIC: Reflexes are normal with no gross motor deficits. SKIN: No lesions. Assessment and Plan Assessment and Plan IMPRESSION: 1. Recurrent left pneumothorax with hypoxemia. 2. COPD and chronic bronchitis with bronchiectasis. 3. Basilar pulmonary fibrosis. 4. Hypertension. Plan : 1. Cont Chest tube to suction 2. Labs in am 3. O2 5 L.and NRB mask if he desats <90 4. Duonebs qid. 5. D/C antibiotics. 6. IS at bedside q3h 7. Pain control with [place] PRN 8.Taper prednisone to 20 mg daily Prerna Santos MD Jan 10, 2018 12:39
--- NOTE | 2018-01-10 14:41 | HHI.PR ---
Subjective Remarks Follow-up left pneumothorax. Improving shortness of breath nasocannula down to 4 L. Discussed with nursing Objective Vitals Vital Signs Date Time Temp Pulse Resp B/P (MAP) Pulse Ox O2 Delivery O2 Flow Rate FiO2 01/10/18 13:38 92 Nasal Cannula 4.00 01/10/18 11:45 98.4 75 18 105/65 (78) 92 01/10/18 09:05 Nasal Cannula 4.00 01/10/18 07:59 97.6 67 18 105/69 (81) 95 01/10/18 04:00 98.0 78 18 109/76 (87) 97 01/10/18 00:00 98.2 90 18 118/78 (91) 93 01/09/18 20:00 Nasal Cannula 5.00 100 01/09/18 19:35 97.9 89 18 116/75 (89) 96 01/09/18 16:00 98.1 75 18 109/69 (82) 98 I/O 01/09/18 01/09/18 01/09/18 01/10/18 01/10/18 01/10/18 07:00 15:00 23:00 07:00 15:00 23:00 Intake Total 800 ml Output Total 710 ml 40 ml 1280 ml Balance 90 ml -40 ml -1280 ml Intake Oral 800 ml Output Urine Total 700 ml 1200 ml Chest Tube Drainage Total 10 ml 40 ml 40 ml Drainage Total 40 ml # Voids 3 # Bowel Movements 0 2 Result Diagram: 01/09/1892601/09/18 0927 Imaging Last Impressions Chest X-Ray 01/07/18 06 Signed Impressions: Service Date/Time: Sunday, January 07, 2018 06:06 - CONCLUSION: Slight improvement in the aeration of the lungs with a small loculated pneumothorax on the left. Francia Sky MD Objective Remarks GENERAL: Resting comfortably in bed currently on nasal cannula. SKIN: No rashes, ecchymoses or lesions. Cool and dry. CARDIOVASCULAR: Regular rate and rhythm without murmurs, gallops, or rubs. RESPIRATORY: No wheezes with Decreased breath sounds on the left. CT on the left GASTROINTESTINAL: Abdomen soft, non-tender, nondistended. No guarding. MUSCULOSKELETAL: Extremities without clubbing, cyanosis, or edema. No joint tenderness, effusion, or edema noted. NEUROLOGICAL: Awake and alert. Cranial nerves II through XII intact. Motor and sensory grossly within normal limits. Normal speech. Procedures Chest tube placement A/P Problem List: (1) Recurrent spontaneous pneumothorax ICD Code: J93.83 - Other pneumothorax Status: Acute (2) COPD (chronic obstructive pulmonary disease) ICD Code: J44.9 - Chronic obstructive pulmonary disease, unspecified (3) Pulmonary fibrosis ICD Code: J84.10 - Pulmonary fibrosis, unspecified Status: Chronic Assessment and Plan Mr. Price is a 47 year old male with a history of COPD, pulmonary fibrosis s/p VATS, bleb resection, pleurodesis by Cardiothoracic surgery on 08/23/2014 who was admitted to the hospital on 12/25/2017 due to shortness of breath. He was found to have a left sided pneumothorax and underwent left sided chest tube placement. On 12/29/2017 his chest tube dislodged and he went into significant respiratory distress, diaphoresis and hypoxemic. Emergent chest tube was placed again. He was managed in the ICU and transferred to the floor on 01/04/2018. Pulmonary has been following patient closely. - Left sided recurrent pneumothorax - Pulmonary fibrosis - COPD - Probable pneumonia - Supplemental O2 to keep O2 sat > 90%. - DuoNeb, Symbicort, Spiriva, wean Prednisone - Pulmonary following. Pulmonary is discussing with [facility] for endobronchial valve. - [id number] was 144 (100-200) on 12/15/2017. - s/p Zosyn 4.5g Q8hrs and now currently on p.o. Augmentin until January 13 - repeat chest x-ray shows small loculated pneumothorax on the Left. Interventional radiology consulted to evaluate chest tube - Hypertension-stable - Continue Amlodipine 10mg Qday and metoprolol 25mg BID. Full code. Lovenox. Discharge Planning not ready for dc still with CT Johny,Mannie Johnson MD Jan 10, 2018 14:41
[2018-01-10] MEDS: RESP: ALBUTEROL 2.5 MG/3 ML NEB (PRN) NEB ×3 (17:37→22:45)
[2018-01-10] MEDS: REMOVE OLD LIDOCAINE PATCH T-DERMAL SCH (21:00)
[2018-01-10] MEDS: guaiFENesin/CODEINE SYRUP 200 MG/20 MG/10 ML CUP PO PRN (21:01)
[2018-01-10] MEDS: BENZOCAINE-MENTHOL (SUGAR FREE) 15 MG-3.6 MG LOZENGE BUCCAL PRN (21:01)
[2018-01-10] MEDS ORDERED: ALPRAZolam 0.25 MG TAB PO ONE (23:00)
[2018-01-11] VITALS (18 sets, daily range): BP systolic 91–150; BP diastolic 53–94; PULSE 76–113; RESP 16–24; TEMP 97.1–99.9; O2SAT 80–100
[2018-01-11] MEDS: RESP: ALBUTEROL 2.5 MG/3 ML NEB (PRN) NEB ×2 (02:09→05:16)
[2018-01-11] MEDS ORDERED: MIDAZOLAM HCL 5 MG/ML VIAL (1 ML) ONE ×2 (06:11→06:16)
--- NOTE | 2018-01-11 06:14 | RADRPT ---
EXAM DATE/TIME: 01/11/2018 05:53 [facility] COMPARISON: CHEST SINGLE AP, January 10, 2018, 6:04. INDICATIONS : Short of breath. MEDICAL HISTORY : pulmonary fibrosis, pneumothorax SURGICAL HISTORY : None. ENCOUNTER: Subsequent ACUITY: 2 months PAIN SCORE: 0/10 LOCATION: Bilateral chest FINDINGS: A single AP portable semierect view of the chest was obtained and demonstrates a significant increase in the size of the left pneumothorax along left lateral and basilar aspects of the lung. There is me diastinal shift to the right with increased opacification in the right lung. The heart size remains e nlarged. Bullous changes are present in the right lung apex and medial left upper lobe. The bony thor ax appears intact. CONCLUSION: Interval increase in size of left pneumothorax with mediastinal shift and evidence of tension. Saleem Mejia MD on January 11, 2018 at 6:10 Board Certified Radiologist. This report was verified electronically.
[2018-01-11] MEDS ORDERED: ETOMIDATE 20 MG/10 ML VIAL IV PUSH ONE (06:15)
[2018-01-11] MEDS ORDERED: PROPOFOL 1000 MG/100 ML INJ 100 ML IV PRN ×2 (06:15→09:00)
[2018-01-11] MEDS ORDERED: ROCURONIUM INJ 50 MG/5 ML VIAL IV ONE (06:15)
[2018-01-11] MEDS ORDERED: MIDAZOLAM HCL 2 MG/2 ML VIAL IV PUSH ONE (06:15)
[2018-01-11] MEDS ORDERED: ROCURONIUM INJ 50 MG/5 ML VIAL ONE (06:17)
--- NOTE | 2018-01-11 07:05 | PD.PROCEDR ---
Procedure Note Procedure Procedure: Left pigtail chest tube placement Indication: Acute recurrent loculated left pneumothorax and respiratory distress following dislodgment of chest tube. Details of procedure: Informed consent was obtained from the patient after discussion of risks, benefits, alternatives. He verbally consented.. The patient was laid supine. The lateral chest wall was cleaned with ChloraPrep x3. Regional sterile drapes were applied. 1% lidocaine was used for local anesthesia and injected into the subcutaneous and deep muscle tissues. Introducer needle with saline syringe was advanced into the pleural based until air bubbles were aspirated. Wire was advanced. A small skin incision was made with scalpel blade. 10 [place] pigtail catheter was advanced over the wire and wire and inner cannula were removed. The chest tube was connected to a Pleur-evac drainage system. The catheter was sutured in place and then secured with Stay-lock dressing. There was initially no air leak present but after repositioning for CXR a 1+ air leak was noted. Estimated blood loss: <5 mL. Complications: None. Stat chest x-ray demonstrates some improvement of PTX but moderate PTX persists. Now patient has air leak so will repeat CXR in few hours to ensure improvement. Place additional chest tube if needed. Eva Garcia MD Jan 11, 2018 07:05
--- NOTE | 2018-01-11 07:15 | RADRPT ---
EXAM DATE/TIME: 01/11/2018 06:55 [facility] COMPARISON: CHEST SINGLE AP, January 11, 2018, 5:53. INDICATIONS : Chest tube placement. MEDICAL HISTORY : Pneumothorax. SURGICAL HISTORY : None. ENCOUNTER: Subsequent ACUITY: 2 months PAIN SCORE: Non-responsive. LOCATION: Bilateral chest FINDINGS: A single AP portable supine view of the chest was obtained and demonstrates interval placement of a s mallbore left-sided chest tube at the lung base. There has been a slight interval decrease in left pn eumothorax with moderate residual. Mediastinal shift to the right remains with abnormal opacity in th e right lung. The patient has been intubated with endotracheal tube tip approximately 3 cm above the dar[place]. Bullous change remains in the right lung apex and left upper medial lung. Heart size remains at the upper limits of normal. CONCLUSION: 1. Interval placement of small bore left-sided chest tube with mild interval decrease in the left pne umothorax. Tension remains with mediastinal shift to the right. 2. Interval placement of endotracheal tube. 3. Consolidative opacity throughout the right lung. Saleem Mejia MD on January 11, 2018 at 7:12 Board Certified Radiologist. This report was verified electronically.
--- NOTE | 2018-01-11 08:20 | PD.PROCEDR ---
Procedure Note Procedure Endotracheal Intubation Diagnosis: Acute hypoxic respiratory failure Indications: Hypoxia Consent: Patient was informed about the procedure and he accepted Anesthesia: midazolam 5 mg and rocuronium 100 mg Description of the Procedure: The patient was positioned in the sniffing position. Pre-oxygenation was performed using a BMV. Anesthesia was induced via rapid sequence. A MAC 4 blade was used for laryngoscopy and a Grade 1 view was obtained. An 8 mm cuffed endotracheal tube was inserted atraumatically through the vocal cords. Confirmation of correct endotracheal tube placement was made by equal and bilateral breath sounds and colorimetric CO2 detection. The endotracheal tube was secured at 23 cm at the teeth. There were no immediate complications noted. The patient remained hemodynamically stable throughout the procedure. A chest x-ray has been ordered. Simultaneously with the endotracheal intubation , Dr. Garcia placed a left sided pigtail catheter for a left pneumothorax. I personally performed the procedure. Tin Conroy MD Jan 11, 2018 08:20
--- NOTE | 2018-01-11 08:30 | HHI.CCPN ---
Subjective Remarks/Hospital Course 47-year-old male with a past medical history significant for pulmonary fibrosis , COPD and hypertension and VATS/bleb resection/pleurodesis by Dr. Amanda on 08/23 is admitted to hospital with increased shortness of breath. Chart documentation for the past 24 hours prior to admission he has had significant fever/chills and increasing shortness of breath. Patient was found to have a left-sided pneumothorax on chest x-ray. The chest tube was placed and patient was admitted to medicine with pulmonary consultation in place. Today shortly after midnight the chest tube was found at the patient's bedside the dislodged, patient was in severe respiratory distress, diaphoretic and hypoxemic. The stat x-ray showed reaccumulation of left-sided pneumothorax and emergent chest tube was placed. 12/30 - resting in bed on 6 nasal cannula. Complaining of sore throat. Cough. Pneumothorax last left-sided similar size in reviewing chest x-ray this AM. Discussed with Dr. Blunt and patient 12/31: Resting in bed on nasal cannula. 6 L. Sore throat better controlled with Chloraseptic [place]. Small left sided pneumothorax similar in size from yesterday. Maintaining positive attitude. 01/01: no change. still quite dyspneic. on 6L and intermittently NRB. no new complaints. 01/02: Intermittent requiring nasal cannula versus nonrebreather mask. Remain short of breath. Small air leak persists. -40 cm H2O 01/03: Currently on nasal cannula 6 L. Appears depressed. Small air leak persists 1-2 chambers. -40 cm H2O. 01/04: Remains on nasal cannula 6 L. Switch is off and on between nonrebreather nasal cannula. Air leak persists. Pulmonology is okay with transfer to floor. 01/11: Per report, pigtail catheter placed earlier during hospitalization came out last night. Earlier this AM, patient with worsening respiratory distress, requiring NRM, with PO2 in the 50's. Stat CXR showing left sided pneumothorax. After discussing with patient, he was intubated and simultaneously had a left sided pigtail catheter placed. Currently, mechanically ventilated, Pip mid 20's synchronized with the vent. Chest tube at -40 with air leak. ROS - unobtainable Objective Vital Signs Date Time Temp Pulse Resp B/P (MAP) Pulse Ox O2 Delivery O2 Flow Rate FiO2 01/11/18 06:57 99 100 01/11/18 06:05 15.00 01/11/18 05:03 97.4 113 18 138/87 (104) 01/11/18 03:56 Partial Rebreather Intake and Output 01/11/18 01/11/18 01/12/18 08:00 16:00 00:00 Output Total 600 ml Balance -600 ml Result Diagram: 01/09/1827 01/09/1827 Other Results Laboratory Tests Test 01/11/18 06:00 01/11/18 07:42 Blood Gas Patient Temperature 98.6 98.6 Blood Gas HCO3 30 mmol/L (22-26) 33 mmol/L (22-26) Blood Gas Base Excess 5.1 mmol/L (-2-2) 6.2 mmol/L (-2-2) Blood Gas Oxygen Saturation 88 % (90-100) 97 % (90-100) Arterial Blood pH 7.39 (7.380-7.420) 7.24 (7.380-7.420) Arterial Blood Partial Pressure CO2 50 mmHg (38-42) 80 mmHg (38-42) Arterial Blood Partial Pressure O2 57 mmHg (61-120) 154 mmHg (61-120) Arterial Blood Oxygen Content 17.2 Vol % (12.0-20.0) 22.1 Vol % (12.0-20.0) Arterial Blood Carboxyhemoglobin 1.1 % (0-4) 0.7 % (0-4) Arterial Blood Methemoglobin 0.9 % (0-2) 0.8 % (0-2) Blood Gas Hemoglobin 14.0 G/DL (12.0-16.0) 16.1 G/DL (12.0-16.0) Blood Gas Inspired Oxygen 100 % 100 % Blood Gas Puncture Site RT RADIAL Oxygen Delivery Device VENTILATOR Blood Gas Ventilator Setting Last Impressions Chest X-Ray 01/11/18 0000 Signed Impressions: Service Date/Time: Thursday, January 11, 2018 06:55 - CONCLUSION: 1. Interval placement of small bore left-sided chest tube with mild interval decrease in the left pneumothorax. Tension remains with mediastinal shift to the right. 2. Interval placement of endotracheal tube. 3. Consolidative opacity throughout the right lung. Saleem Mejia MD Imaging Last Impressions Chest X-Ray 01/04/18 0600 Signed Impressions: Service Date/Time: Thursday, January 04, 2018 04:51 - CONCLUSION: No significant change has occurred. Joshua Bryant MD Procedures Chest tube placement Endotracheal tube placement Objective Remarks General - middle age gentleman, intubated and sedated, ill appearing HEENT - pupils equal, reactive, sclerae anicteric, neck supple, no nuchal rigidity, neck veins distended, no carotid bruit, + ETT CV - regular S1, S2, no murmurs, tachycardic Chest - coarse breath sounds bilateral, improved air entry over the left thorax , no wheezes Abdomen - soft, non-tender, non-distended, BS present, no hepatomegaly, no splenomegaly Skin - no rashes, no cyanosis Extremities - warm and well perfused, no edema, + peripheral pulses, no clubbing Neuro - intubated and sedated, prior to intubation he was moving all his extremities A/P Problem List: (1) Migraine headache ICD Code: G43.909 - Migraine, unspecified, not intractable, without status migrainosus Status: Chronic (2) Spontaneous pneumothorax ICD Code: J93.83 - Other pneumothorax Status: Acute (3) Recurrent spontaneous pneumothorax ICD Code: J93.83 - Other pneumothorax Status: Acute (4) COPD exacerbation ICD Code: J44.1 - Chronic obstructive pulmonary disease with (acute) exacerbation Status: Acute (5) Pulmonary fibrosis ICD Code: J84.10 - Pulmonary fibrosis, unspecified Status: Chronic Assessment and Plan 1. Acute hypoxic respiratory failure - requiring intubation and mechanical ventilation 2. Persistent left sided pneumothorax - s/p emergent left sided chest tube placement 3. COPD, chronic bronchitis with bronchiectasis 4. Pulmonary fibrosis 5. Possible pneumonia 6. HTN 1. Continue PRVC, Pip mid 20's, no auto PEEP, patient synchronized with the vent 2. Vent bundle and bronchodilators 3. ABG post intubation reviewed, increase RR to 24 and decrease Ti 4. Chest tube to suction -40 5. Antibiotics per pulmonary - on augmentin 6. On chronic prednisone 7. Hold antihypertensives while on sedation 8. If hypercapnea and hypoxia are improving will plan to extubate him today 9. GI/DVT prophylaxis Addendum: Patient seen multiple times throughout the day, chest tube with continuous air leak. Patient weaned off propofol started on Precedex, more calm , placed on pressure support 10/5 40%, doing well with tidal volumes in the 400s respiratory rate low 20s. Patient was successfully extubated and placed on HFNC, tolerating it well. Problem Qualifiers (1) Migraine headache: Qualified Codes: G43.009 - Migraine without aura, not intractable, without status migrainosus Tin Conroy MD Jan 11, 2018 08:30
[2018-01-11] MEDS: ENOXAPARIN SODIUM 40 MG/0.4 ML SYRINGE SQ SCH (08:50)
[2018-01-11] MEDS: SODIUM CHLORIDE 0.9% FLUSH 10 ML FLUSH IV FLUSH SCH ×2 (08:50→21:18)
[2018-01-11] MEDS: LIDOCAINE HCL 5% PATCH T-DERMAL SCH (08:50)
[2018-01-11] MEDS: AMOXICILLIN/CLAVULANATE K 500 MG TAB PO SCH ×2 (09:00→21:34)
[2018-01-11] MEDS: DOCUSATE SODIUM 50 MG/SENNA 8.6 MG TAB PO SCH ×2 (09:00→21:00)
[2018-01-11] MEDS: TIOTROPIUM BROMIDE 18 MCG INH INH SCH (09:00)
[2018-01-11] MEDS: METOPROLOL TARTRATE 25 MG TAB PO SCH ×2 (09:00→21:00)
[2018-01-11] MEDS: predniSONE 20 MG TAB PO SCH (09:00)
[2018-01-11] MEDS: BUDESONIDE-FORMOTEROL 160/4.5 MCG INHALER INH SCH ×2 (09:00→21:18)
[2018-01-11] MEDS: guaiFENesin E.R. 600 MG TAB PO SCH ×2 (09:00→21:00)
[2018-01-11] MEDS: FAMOTIDINE 20 MG/2 ML VIAL IV PUSH SCH ×2 (09:29→21:19)
[2018-01-11] MEDS: RESP: ALBUTEROL 2.5 MG/IPRATROPIUM 0.5 MG NEB (SCH) NEB ×3 (10:19→20:50)
[2018-01-11] MEDS ORDERED: DEXMEDETOMIDINE INJ 200 MCG in SODIUM CHLORIDE 0.9% INJ 50 ML IV PRN (12:15)
[2018-01-11] MEDS ORDERED: SODIUM CHLORID 0.9% 500 ML INJ 500 ML IV ONE (12:45)
[2018-01-11 13:30] LABS: AUTOMATED NEUTROPHIL # 15.4 TH/MM3 (1.8-7.7); EOSINOPHIL % 0.2 % (0.0-4.0); HEMATOCRIT 38.7 % (39.0-51.0); HEMOGLOBIN 13.4 GM/DL (13.0-17.0); LYMPHOCYTE # 2.9 TH/MM3 (1.0-4.8); MEAN CORPUSCULAR HEMOGLOBIN 29.1 PG (27.0-34.0); MEAN CORPUSCULAR HGB CONC 34.7 % (32.0-36.0); MEAN PLATELET VOLUME 7.2 FL (7.0-11.0); MONO % 4.2 % (0.0-8.0); MONOCYTE # 0.8 TH/MM3 (0-0.9); NEUT % 80.6 % (16.0-70.0); PLATELET COUNT 310 TH/MM3 (150-450); RED BLOOD COUNT 4.61 MIL/MM3 (4.50-5.90); RED CELL DISTRIBUTION WIDTH 14.2 % (11.6-17.2); WHITE BLOOD COUNT 19.1 TH/MM3 (4.0-11.0)
[2018-01-11 13:42] LABS: ALBUMIN 3.2 GM/DL (3.4-5.0); ALT (GPT) 27 U/L (12-78); AST (GOT) 23 U/L (15-37); BICARBONATE 31.3 MEQ/L (21.0-32.0); CALCIUM 9.2 MG/DL (8.5-10.1); CHLORIDE 95 MEQ/L (98-107); GLOMERULAR FILTRATION RATE 109 ML/MIN (>89); GLUCOSE,RANDOM 77 MG/DL (74-106); PHOSPHORUS 3.4 MG/DL (2.5-4.9); SODIUM (NA) 136 MEQ/L (136-145)
[2018-01-11 13:44] LABS: ALKALINE PHOSPHATASE 86 U/L (45-117); TOTAL BILIRUBIN ADULT 0.5 MG/DL (0.2-1.0); TOTAL PROTEIN 8.6 GM/DL (6.4-8.2)
[2018-01-11 13:47] LABS: BLOOD UREA NITROGEN 10 MG/DL (7-18)
--- NOTE | 2018-01-11 13:58 | RADRPT ---
EXAM DATE/TIME: 01/11/2018 13:16 [facility] COMPARISON: CHEST SINGLE AP, January 11, 2018, 5:53. CHEST SINGLE AP, January 11, 2018, 6:55. INDICATIONS : Evaluate for pneumothorax. MEDICAL HISTORY : Pneumothorax. SURGICAL HISTORY : None. ENCOUNTER: Subsequent ACUITY: 1 day PAIN SCORE: Non-responsive. LOCATION: Bilateral chest FINDINGS: Persistent left pneumothorax with pigtail catheter in the lower left chest. Induration of visceral a nd parietal pleura superior to the chest tube measures 3.8 cm (previously measured 3.5 cm). It track s in the superior medial upper chest and along the left hemidiaphragm. The mediastinum remains devia grabiel towards the right. Endotracheal tube tip in good position. Diffuse partially consolidated airsp katie opacities in the right lung have increased in density and there is persistent air space opacities in the collapsed left lung. CONCLUSION: 1. Normal size of the left pneumothorax is stable when compared to exam earlier today stopped persist ent eccentric towards the right. 2. Persistent bilateral airspace consolidation, slightly increased in the right lung. Inder Herrera MD on January 11, 2018 at 13:54 Board Certified Radiologist. This report was verified electronically.
[2018-01-11 14:10] LABS: METAMYELOCYTES 1 % (0-1); MONOCYTES 1 % (0-8); NEUTROPHIL # MANUAL DIFF 15.1 TH/MM3 (1.8-7.7); POLYS (SEG NEUTROPHILS) 78 % (16-70)
[2018-01-11 14:11] LABS: LYMPHOCYTES 20 % (9-44)
--- NOTE | 2018-01-11 17:42 | HHI.PR ---
Subjective Remarks Was sent to ICU for Resp failure after chest tube fell out. Now intubated and on the vent. FIO2 50 % CXR shows a large left Pneumothorax. New chest tube is in Objective Vital Signs Date Time Temp Pulse Resp B/P (MAP) Pulse Ox O2 Delivery O2 Flow Rate FiO2 01/11/18 16:30 35 40 01/11/18 16:20 100 Nasal Cannula 35.00 40 01/11/18 16:00 98.1 86 21 93/59 (70) 100 01/11/18 16:00 40 01/11/18 16:00 109 01/11/18 14:00 109 01/11/18 12:26 40 01/11/18 12:26 96 40 01/11/18 12:00 97.8 106 24 116/74 (88) 100 01/11/18 12:00 40 01/11/18 12:00 109 01/11/18 11:42 100 40 01/11/18 10:00 109 01/11/18 08:10 100 80 01/11/18 08:00 99.0 98 16 150/94 (112) 100 01/11/18 08:00 100 01/11/18 08:00 96 01/11/18 07:00 99 Mechanical Ventilator 100 01/11/18 06:57 99 100 01/11/18 06:05 80 15.00 01/11/18 05:03 97.4 113 18 138/87 (104) 95 01/11/18 03:56 94 Partial Rebreather 12.00 01/11/18 01:16 97.1 107 18 130/77 (94) 96 01/10/18 23:12 Non-Rebreather 5.00 92 01/10/18 21:05 98.4 107 18 126/79 (95) 94 01/10/18 20:45 Non-Rebreather 4.00 89 01/10/18 20:25 91 Nasal Cannula 6.00 01/10/18 20:25 Non-Rebreather 4.00 89 I/O 01/10/18 01/10/18 01/10/18 01/11/18 01/11/18 01/11/18 07:00 15:00 23:00 07:00 15:00 23:00 Intake Total 595 ml 40 ml Output Total 1280 ml 0 ml 600 ml Balance -1280 ml 0 ml -600 ml 595 ml 40 ml IV Total 595 ml 40 ml Output Urine Total 1200 ml 600 ml Chest Tube Drainage Total 40 ml 0 ml Drainage Total 40 ml # Voids 2 1 Result Diagram: 01/11/18 1300 01/11/18 1300 Objective Remarks GENERAL: This is a well-built middle-aged man who is on the vent and in mild distress. No pallor or icterus, or edema. HEAD, EYES, EARS, NOSE, THROAT: Head normocephalic. The pupils are reactive and equal. Tongue is moist. Throat clear. NECK: The neck is supple. No venous distention. CHEST: Decreased breath sounds over the left mid and upper chest with crackles at the lung bases.Chest Tube is in left chest. HEART: Heart sounds are regular. S1 and S2. No murmur. No S3. ABDOMEN: Abdomen soft and without masses. No organomegaly or tenderness. The bowel sounds are active. EXTREMITIES: No lesions. No edema. NEUROLOGIC: Reflexes are 1 +. Sedated SKIN: No lesions. Assessment and Plan Assessment and Plan IMPRESSION: 1. Recurrent left pneumothorax with hypoxemia. 2. COPD and chronic bronchitis with bronchiectasis. 3. Basilar pulmonary fibrosis. 4. Hypertension. 5. Respiratory failure Plan : 1. Cont Chest tube to suction 2. Wean vent to CPAP and Extubate 3. Reduce sedation 4. Duonebs qid. 5. Solumedrol 40 mg IV daily 6. IS at bedside q3h 7. Pain control with [place] PRN 8.CXR ,BMP in Prerna Santos MD Jan 11, 2018 17:42
[2018-01-11] MEDS: HYDROmorphone HCL PF 2 MG/ML VIAL IV PUSH PRN (19:35)
[2018-01-11] MEDS: CHLORHEXIDINE 0.12% (ORAL KIT) 15 ML CUP MT SCH (19:51)
[2018-01-11] MEDS: REMOVE OLD LIDOCAINE PATCH T-DERMAL SCH (21:00)
[2018-01-11] MEDS: ARTIFICIAL TEARS OPTH SOLN 15 ML BTL EACH EYE SCH (21:18)
[2018-01-11] MEDS: DEXTROMETHORPHAN SYRUP 7.5MG/5ML UDC PO PRN (22:58)
[2018-01-11] MEDS: BENZOCAINE-MENTHOL (SUGAR FREE) 15 MG-3.6 MG LOZENGE BUCCAL PRN (22:59)
[2018-01-12] VITALS (14 sets, daily range): BP systolic 93–119; BP diastolic 58–83; PULSE 83–100; RESP 20–32; TEMP 98.2–99.2; O2SAT 90–98
[2018-01-12] MEDS: HYDROmorphone HCL PF 2 MG/ML VIAL IV PUSH PRN ×8 (00:17→22:00)
[2018-01-12] MEDS: ARTIFICIAL TEARS OPTH SOLN 15 ML BTL EACH EYE SCH ×6 (02:34→21:29)
[2018-01-12] MEDS: guaiFENesin/CODEINE SYRUP 200 MG/20 MG/10 ML CUP PO PRN ×4 (02:41→20:14)
[2018-01-12] MEDS: RESP: ALBUTEROL 2.5 MG/IPRATROPIUM 0.5 MG NEB (SCH) NEB ×4 (03:22→19:52)
[2018-01-12 04:41] LABS: HEMATOCRIT 38.8 % (39.0-51.0); MEAN CELL VOLUME 83.9 FL (80.0-100.0); MEAN CORPUSCULAR HGB CONC 33.4 % (32.0-36.0); MEAN PLATELET VOLUME 7.4 FL (7.0-11.0); PLATELET COUNT 353 TH/MM3 (150-450); RED BLOOD COUNT 4.62 MIL/MM3 (4.50-5.90); RED CELL DISTRIBUTION WIDTH 14.2 % (11.6-17.2); WHITE BLOOD COUNT 8.9 TH/MM3 (4.0-11.0)
[2018-01-12 05:07] LABS: BICARBONATE 31.6 MEQ/L (21.0-32.0); CALCIUM 9.2 MG/DL (8.5-10.1); CREATININE 0.87 MG/DL (0.60-1.30); MAGNESIUM 2.1 MG/DL (1.5-2.5)
--- NOTE | 2018-01-12 06:39 | RADRPT ---
EXAM DATE/TIME: 01/12/2018 05:18 [facility] COMPARISON: CHEST SINGLE AP, January 11, 2018, 6:55. CHEST SINGLE AP, January 11, 2018, 13:16. INDICATIONS : Short of breath.. Followup left pneumothorax. MEDICAL HISTORY : Pneumothorax. SURGICAL HISTORY : None. ENCOUNTER: Subsequent ACUITY: 1 month PAIN SCORE: Non-responsive. LOCATION: Bilateral chest FINDINGS: 2 AP semierect views of the chest were obtained and again demonstrate a moderate size left pneumothor ax involving the medial and lateral lung base. This appears slightly decreased in size. The small bor e left-sided chest tube remains in place. There is infiltrate in both lungs right greater than left. There is mild mediastinal shift to the right. The heart size remains at the upper limits of normal. B ullous changes again noted in the right lung apex and medial left upper lobe. CONCLUSION: 1. Mild interval improvement in left pneumothorax. Mediastinal shift to the right remains. 2. Diffuse airspace disease remains right greater than left. Saleem Mejia MD on January 12, 2018 at 6:36 Board Certified Radiologist. This report was verified electronically.
[2018-01-12] MEDS: CHLORHEXIDINE 0.12% (ORAL KIT) 15 ML CUP MT SCH ×2 (08:00→20:00)
[2018-01-12] MEDS ORDERED: MENTHOL LOZENGE BUCCAL PRN (08:00)
[2018-01-12] MEDS: PHENOL 1.4% SOLN 180 ML BTL OROPHARYNG PRN (08:40)
[2018-01-12] MEDS: BENZOCAINE-MENTHOL (SUGAR FREE) 15 MG-3.6 MG LOZENGE BUCCAL PRN ×2 (08:40→20:13)
[2018-01-12] MEDS: ENOXAPARIN SODIUM 40 MG/0.4 ML SYRINGE SQ SCH (08:40)
[2018-01-12] MEDS: FAMOTIDINE 20 MG/2 ML VIAL IV PUSH SCH ×2 (08:41→21:17)
[2018-01-12] MEDS: AMOXICILLIN/CLAVULANATE K 500 MG TAB PO SCH ×2 (08:41→21:18)
[2018-01-12] MEDS: predniSONE 20 MG TAB PO SCH (08:42)
[2018-01-12] MEDS: LIDOCAINE HCL 5% PATCH T-DERMAL SCH (08:43)
[2018-01-12] MEDS: guaiFENesin E.R. 600 MG TAB PO SCH ×2 (08:44→21:00)
[2018-01-12] MEDS: METOPROLOL TARTRATE 25 MG TAB PO SCH ×2 (08:44→21:18)
[2018-01-12] MEDS: TIOTROPIUM BROMIDE 18 MCG INH INH SCH (08:45)
[2018-01-12] MEDS: BUDESONIDE-FORMOTEROL 160/4.5 MCG INHALER INH SCH ×2 (08:45→21:29)
[2018-01-12] MEDS: SODIUM CHLORIDE 0.9% FLUSH 10 ML FLUSH IV FLUSH SCH ×2 (08:46→21:15)
[2018-01-12] MEDS: DOCUSATE SODIUM 50 MG/SENNA 8.6 MG TAB PO SCH ×2 (09:00→21:00)
--- NOTE | 2018-01-12 10:15 | HHI.CCPN ---
Subjective Remarks/Hospital Course 47-year-old male with a past medical history significant for pulmonary fibrosis , COPD and hypertension and VATS/bleb resection/pleurodesis by Dr. Amanda on 08/23 is admitted to hospital with increased shortness of breath. Chart documentation for the past 24 hours prior to admission he has had significant fever/chills and increasing shortness of breath. Patient was found to have a left-sided pneumothorax on chest x-ray. The chest tube was placed and patient was admitted to medicine with pulmonary consultation in place. Today shortly after midnight the chest tube was found at the patient's bedside the dislodged, patient was in severe respiratory distress, diaphoretic and hypoxemic. The stat x-ray showed reaccumulation of left-sided pneumothorax and emergent chest tube was placed. 12/30 - resting in bed on 6 nasal cannula. Complaining of sore throat. Cough. Pneumothorax last left-sided similar size in reviewing chest x-ray this AM. Discussed with Dr. Blunt and patient 12/31: Resting in bed on nasal cannula. 6 L. Sore throat better controlled with Chloraseptic [place]. Small left sided pneumothorax similar in size from yesterday. Maintaining positive attitude. 01/01: no change. still quite dyspneic. on 6L and intermittently NRB. no new complaints. 01/02: Intermittent requiring nasal cannula versus nonrebreather mask. Remain short of breath. Small air leak persists. -40 cm H2O 01/03: Currently on nasal cannula 6 L. Appears depressed. Small air leak persists 1-2 chambers. -40 cm H2O. 01/04: Remains on nasal cannula 6 L. Switch is off and on between nonrebreather nasal cannula. Air leak persists. Pulmonology is okay with transfer to floor. 01/11: Per report, pigtail catheter placed earlier during hospitalization came out last night. Earlier this AM, patient with worsening respiratory distress, requiring NRM, with PO2 in the 50's. Stat CXR showing left sided pneumothorax. After discussing with patient, he was intubated and simultaneously had a left sided pigtail catheter placed. Currently, mechanically ventilated, Pip mid 20's synchronized with the vent. Chest tube at -40 with air leak. 01/12: No events over the night. Patient doing better, shortness of breath significantly improved, complaining of some chest pain over the chest tube site. Eyes feel better, no visual disturbances, no double vision, very happy with artificial tears. Better spirits. Left-sided chest tube with continuous air leak on suction at -40. He remains on high flow nasal cannula at 0.4 FiO2 and 35 L/min, with O2 sat of 100%. Morning chest x-ray reviewed, mild improvement in left-sided pneumothorax, unchanged infiltrates bilateral worse on the right. Objective Vital Signs Date Time Temp Pulse Resp B/P (MAP) Pulse Ox O2 Delivery O2 Flow Rate FiO2 01/12/18 07:39 98 High Flow Nasal Cannula 30.00 40 01/12/18 06:00 92 01/12/18 04:00 98.9 28 113/78 (90) Intake and Output 01/12/18 01/12/18 01/12/18 07:59 15:59 23:59 Intake Total 450 ml Output Total 1081 ml Balance -631 ml Result Diagram: 01/12/1839901/12/18399 Imaging Last Impressions Chest X-Ray 01/12/18399 Signed Impressions: Service Date/Time: December 05:18 - CONCLUSION: 1. Mild interval improvement in left pneumothorax. Mediastinal shift to the right remains. 2. Diffuse airspace disease remains right greater than left. Saleem Mejia MD Procedures Chest tube placement Endotracheal tube placement Objective Remarks General - middle age gentleman, awake, alert, in no distress HEENT - pupils are equal, reactive, sclerae are anicteric, neck is supple, no rigidity, no JVD CV - regular heart sounds, no murmurs Chest -still with coarse breath sounds bilateral, improved air entry over the left thorax, no wheezes, left-sided pigtail catheter in place with continuous air leak Abdomen - soft, non-tender, not distended, BS present Extremities - warm, no edema, + peripheral pulses Neuro - awake alert and oriented 3, moves all extremities A/P Problem List: (1) Migraine headache ICD Code: G43.909 - Migraine, unspecified, not intractable, without status migrainosus Status: Chronic (2) Spontaneous pneumothorax ICD Code: J93.83 - Other pneumothorax Status: Acute (3) Recurrent spontaneous pneumothorax ICD Code: J93.83 - Other pneumothorax Status: Acute (4) COPD exacerbation ICD Code: J44.1 - Chronic obstructive pulmonary disease with (acute) exacerbation Status: Acute (5) Pulmonary fibrosis ICD Code: J84.10 - Pulmonary fibrosis, unspecified Status: Chronic Assessment and Plan 1. Acute hypoxic respiratory failure - requiring intubation and mechanical ventilation, now extubated since yesterday, doing well 2. Persistent left sided pneumothorax - s/p emergent left sided chest tube placement, with slight interval improvement in pneumothorax compared to yesterday 3. COPD, chronic bronchitis with bronchiectasis 4. Pulmonary fibrosis 5. Possible pneumonia 6. HTN 1. Try to wean high flow to regular nasal cannula 2. Bronchodilators 3. Continue chest tube to suction at -40 4. Daily chest x-ray 5. Antibiotics per pulmonary - on augmentin 6. On chronic prednisone/solumedrol 7. On antihypertensives 8. Advance diet 9. GI/DVT prophylaxis 10. Artificial tears Will discuss with pulmonary regarding transfer to floor Problem Qualifiers (1) Migraine headache: Qualified Codes: G43.009 - Migraine without aura, not intractable, without status migrainosus Tin Conroy MD Jan 12, 2018 10:15
--- NOTE | 2018-01-12 13:01 | HHI.PR ---
Subjective Remarks Was sent to ICU for Resp failure after chest tube fell out. Now off the vent and on O2 5 L CXR shows a left Pneumothorax. New chest tube is in. Better today. Objective Vital Signs Date Time Temp Pulse Resp B/P (MAP) Pulse Ox O2 Delivery O2 Flow Rate FiO2 01/12/18 07:39 98 High Flow Nasal Cannula 30.00 40 01/12/18 06:00 92 01/12/18 04:00 88 01/12/18 04:00 98.9 88 28 113/78 (90) 94 01/12/18 02:00 83 01/12/18 00:00 98.7 86 26 93/58 (70) 97 01/12/18 00:00 86 01/11/18 22:00 84 01/11/18 20:50 97 High Flow Nasal Cannula 30.00 40 01/11/18 20:00 99.9 83 18 91/53 (66) 99 01/11/18 20:00 83 01/11/18 20:00 96 Nasal Cannula 35.00 40 01/11/18 18:00 76 01/11/18 16:32 97 High Flow Nasal Cannula 30.00 40 01/11/18 16:30 35 40 01/11/18 16:20 100 Nasal Cannula 35.00 40 01/11/18 16:00 98.1 86 21 93/59 (70) 100 01/11/18 16:00 40 01/11/18 16:00 86 01/11/18 14:00 96 I/O 01/11/18 01/11/18 01/11/18 01/12/18 01/12/18 01/12/18 06:59 14:59 22:59 06:59 14:59 22:59 Intake Total 595 ml 40 ml 450 ml Output Total 600 ml 10 ml 1081 ml Balance -600 ml 595 ml 30 ml -631 ml Intake Oral 450 ml IV Total 595 ml 40 ml Output Urine Total 600 ml 1075 ml Chest Tube Drainage Total 10 ml 6 ml # Voids 1 2 # Bowel Movements 0 0 Result Diagram: 01/12/1839901/12/18399 Objective Remarks GENERAL: This is a well-built middle-aged man who is awake and on O2 N/C No pallor or icterus, or edema. HEAD, EYES, EARS, NOSE, THROAT: Head normocephalic. The pupils are reactive and equal. Tongue is moist. Throat clear. NECK: The neck is supple. No venous distention. CHEST: Decreased breath sounds over the left mid and upper chest with crackles at the lung bases.Chest Tube is in left chest. HEART: Heart sounds are regular. S1 and S2. No murmur. No S3. ABDOMEN: Abdomen soft and without masses. No organomegaly or tenderness. The bowel sounds are active. EXTREMITIES: No lesions. No edema. NEUROLOGIC: Reflexes are 1 +. SKIN: No lesions. Assessment and Plan Assessment and Plan IMPRESSION: 1. Recurrent left pneumothorax with hypoxemia. 2. COPD and chronic bronchitis with bronchiectasis. 3. Basilar pulmonary fibrosis. 4. Hypertension. 5. Respiratory failure Plan : 1. Cont Chest tube to suction 2. Wean O2 to 4 L 3. No sedation 4. Duonebs qid. 5. Prednisone 10 mg daily 6. IS at bedside q3h 7. Pain control with [place] PRN 8. CXR ,BMP in am Prerna Santos MD Jan 12, 2018 13:01
[2018-01-12] MEDS: REMOVE OLD LIDOCAINE PATCH T-DERMAL SCH (21:22)
[2018-01-13] VITALS (15 sets, daily range): BP systolic 104–118; BP diastolic 67–85; PULSE 75–102; RESP 21–31; TEMP 98.2–99.7; O2SAT 89–99
[2018-01-13] MEDS: ARTIFICIAL TEARS OPTH SOLN 15 ML BTL EACH EYE SCH ×6 (00:13→21:00)
[2018-01-13] MEDS: HYDROmorphone HCL PF 2 MG/ML VIAL IV PUSH PRN ×4 (00:13→21:25)
[2018-01-13] MEDS: guaiFENesin/CODEINE SYRUP 200 MG/20 MG/10 ML CUP PO PRN ×5 (00:38→17:51)
[2018-01-13] MEDS: RESP: ALBUTEROL 2.5 MG/IPRATROPIUM 0.5 MG NEB (SCH) NEB ×4 (04:15→20:35)
[2018-01-13 05:01] LABS: HEMATOCRIT 40.2 % (39.0-51.0); HEMOGLOBIN 13.7 GM/DL (13.0-17.0); MEAN CELL VOLUME 83.6 FL (80.0-100.0); MEAN CORPUSCULAR HEMOGLOBIN 28.4 PG (27.0-34.0); MEAN PLATELET VOLUME 7.8 FL (7.0-11.0); PLATELET COUNT 304 TH/MM3 (150-450); RED BLOOD COUNT 4.81 MIL/MM3 (4.50-5.90); RED CELL DISTRIBUTION WIDTH 14.2 % (11.6-17.2); WHITE BLOOD COUNT 7.3 TH/MM3 (4.0-11.0)
[2018-01-13 05:24] LABS: BICARBONATE 30.5 MEQ/L (21.0-32.0); CALCIUM 9.7 MG/DL (8.5-10.1); CREATININE 0.79 MG/DL (0.60-1.30); MAGNESIUM 2.1 MG/DL (1.5-2.5)
--- NOTE | 2018-01-13 06:05 | RADRPT ---
EXAM DATE/TIME: 01/13/2018 04:30 [facility] COMPARISON: CHEST SINGLE AP, January 12, 2018, 5:18. INDICATIONS : Followup left pneumothorax. MEDICAL HISTORY : Pneumothorax. SURGICAL HISTORY : None. ENCOUNTER: Subsequent ACUITY: 1 month PAIN SCORE: Non-responsive. LOCATION: Bilateral chest FINDINGS: Diffuse airspace opacities again seen in both lungs. On the left, a loculated moderate size pneumotho rax is again seen and there is associated mild mediastinal shift to the right. A small caliber left c hest tube remains in place. Heart size stable, normal. CONCLUSION: 1. Loculated moderate size left pneumothorax with mediastinal shift. Left chest tube remains in place . 2. Diffuse bilateral airspace opacities persist. Arnoldo Christensen MD on January 13, 2018 at 6:02 Board Certified Radiologist. This report was verified electronically.
[2018-01-13] MEDS: CHLORHEXIDINE 0.12% (ORAL KIT) 15 ML CUP MT SCH ×2 (08:00→20:00)
[2018-01-13] MEDS: BUDESONIDE-FORMOTEROL 160/4.5 MCG INHALER INH SCH ×2 (09:00→21:25)
[2018-01-13] MEDS: TIOTROPIUM BROMIDE 18 MCG INH INH SCH (09:00)
[2018-01-13] MEDS: guaiFENesin E.R. 600 MG TAB PO SCH ×3 (09:00→21:25)
[2018-01-13] MEDS: SODIUM CHLORIDE 0.9% FLUSH 10 ML FLUSH IV FLUSH SCH ×2 (09:00→21:00)
[2018-01-13] MEDS: LIDOCAINE HCL 5% PATCH T-DERMAL SCH (09:17)
[2018-01-13] MEDS: ENOXAPARIN SODIUM 40 MG/0.4 ML SYRINGE SQ SCH (09:17)
[2018-01-13] MEDS: AMOXICILLIN/CLAVULANATE K 500 MG TAB PO SCH (09:17)
[2018-01-13] MEDS: BENZOCAINE-MENTHOL (SUGAR FREE) 15 MG-3.6 MG LOZENGE BUCCAL PRN ×2 (09:17→14:08)
[2018-01-13] MEDS: DOCUSATE SODIUM 50 MG/SENNA 8.6 MG TAB PO SCH ×2 (09:18→21:00)
[2018-01-13] MEDS: FAMOTIDINE 20 MG/2 ML VIAL IV PUSH SCH ×2 (09:18→21:25)
[2018-01-13] MEDS: METOPROLOL TARTRATE 25 MG TAB PO SCH ×2 (09:18→21:25)
[2018-01-13] MEDS: predniSONE 10 MG TAB PO SCH (09:19)
--- NOTE | 2018-01-13 10:01 | HHI.CCPN ---
Subjective Remarks/Hospital Course 47-year-old male with a past medical history significant for pulmonary fibrosis , COPD and hypertension and VATS/bleb resection/pleurodesis by Dr. Amanda on 08/23 is admitted to hospital with increased shortness of breath. Chart documentation for the past 24 hours prior to admission he has had significant fever/chills and increasing shortness of breath. Patient was found to have a left-sided pneumothorax on chest x-ray. The chest tube was placed and patient was admitted to medicine with pulmonary consultation in place. Today shortly after midnight the chest tube was found at the patient's bedside the dislodged, patient was in severe respiratory distress, diaphoretic and hypoxemic. The stat x-ray showed reaccumulation of left-sided pneumothorax and emergent chest tube was placed. 12/30 - resting in bed on 6 nasal cannula. Complaining of sore throat. Cough. Pneumothorax last left-sided similar size in reviewing chest x-ray this AM. Discussed with Dr. Blunt and patient 12/31: Resting in bed on nasal cannula. 6 L. Sore throat better controlled with Chloraseptic [place]. Small left sided pneumothorax similar in size from yesterday. Maintaining positive attitude. 01/01: no change. still quite dyspneic. on 6L and intermittently NRB. no new complaints. 01/02: Intermittent requiring nasal cannula versus nonrebreather mask. Remain short of breath. Small air leak persists. -40 cm H2O 01/03: Currently on nasal cannula 6 L. Appears depressed. Small air leak persists 1-2 chambers. -40 cm H2O. 01/04: Remains on nasal cannula 6 L. Switch is off and on between nonrebreather nasal cannula. Air leak persists. Pulmonology is okay with transfer to floor. 01/11: Per report, pigtail catheter placed earlier during hospitalization came out last night. Earlier this AM, patient with worsening respiratory distress, requiring NRM, with PO2 in the 50's. Stat CXR showing left sided pneumothorax. After discussing with patient, he was intubated and simultaneously had a left sided pigtail catheter placed. Currently, mechanically ventilated, Pip mid 20's synchronized with the vent. Chest tube at -40 with air leak. 01/12: No events over the night. Patient doing better, shortness of breath significantly improved, complaining of some chest pain over the chest tube site. Eyes feel better, no visual disturbances, no double vision, very happy with artificial tears. Better spirits. Left-sided chest tube with continuous air leak on suction at -40. He remains on high flow nasal cannula at 0.4 FiO2 and 35 L/min, with O2 sat of 100%. Morning chest x-ray reviewed, mild improvement in left-sided pneumothorax, unchanged infiltrates bilateral worse on the right. 01/13: Patient was weaned off to 6 L nasal cannula last evening over the night he required to be placed back on high flow due to desaturation to mid 80s. This morning he continues to require high flow nasal cannula flow increased from 25-35 L/min due to low O2 sat currently at 40% with sats in the 90s. Otherwise he feels a little better still complaining of some left-sided chest pain due to chest tube shortness of breath unchanged, eye discomfort significantly improved. Chest tube on suction at -40 with continuous air leak. T-max 99.2. Objective Vital Signs Date Time Temp Pulse Resp B/P (MAP) Pulse Ox O2 Delivery O2 Flow Rate FiO2 01/13/18 08:31 96 High Flow Nasal Cannula 20.00 40 01/13/18 06:00 90 01/13/18 04:17 17 01/13/18 04:00 98.5 110/74 (86) Intake and Output 01/13/18 01/13/18 01/14/18 08:00 16:00 00:00 Intake Total 720 ml Output Total 610 ml Balance 110 ml Result Diagram: 01/13/18 0320 01/13/18 0320 Imaging Last Impressions Chest X-Ray 01/13/18399 Signed Impressions: Service Date/Time: Saturday, January 13, 2018 04:30 - CONCLUSION: 1. Loculated moderate size left pneumothorax with mediastinal shift. Left chest tube remains in place. 2. Diffuse bilateral airspace opacities persist. Arnoldo Christensen MD Last Impressions Chest X-Ray 01/12/18399 Signed Impressions: Service Date/Time: December 05:18 - CONCLUSION: 1. Mild interval improvement in left pneumothorax. Mediastinal shift to the right remains. 2. Diffuse airspace disease remains right greater than left. Saleem Mejia MD Procedures Chest tube placement Endotracheal tube placement Objective Remarks General - middle age gentleman, awake, alert, in no distress HEENT - pupils equal, reactive, sclerae anicteric, neck is supple, neck veins not distended CV - regular S1-S2, no murmurs, rubs or gallops Chest - coarse breath sounds bilateral, improved air entry over the left thorax , no wheezes, left-sided pigtail catheter in place with continuous air leak Abdomen - soft, non-tender, not distended, BS present Extremities - no edema, + peripheral pulses Neuro - awake alert and oriented 3, moves all extremities A/P Problem List: (1) Migraine headache ICD Code: G43.909 - Migraine, unspecified, not intractable, without status migrainosus Status: Chronic (2) Spontaneous pneumothorax ICD Code: J93.83 - Other pneumothorax Status: Acute (3) Recurrent spontaneous pneumothorax ICD Code: J93.83 - Other pneumothorax Status: Acute (4) COPD exacerbation ICD Code: J44.1 - Chronic obstructive pulmonary disease with (acute) exacerbation Status: Acute (5) Pulmonary fibrosis ICD Code: J84.10 - Pulmonary fibrosis, unspecified Status: Chronic Assessment and Plan 1. Acute hypoxic respiratory failure - requiring intubation and mechanical ventilation, now extubated, doing well 2. Persistent left sided pneumothorax - s/p emergent left sided chest tube placement, still with residual left-sided continuous air leak on chest tube to suction 3. COPD, chronic bronchitis with bronchiectasis 4. Pulmonary fibrosis 5. Possible pneumonia 6. HTN 1. We will try again to wean high flow to regular nasal cannula 2. Bronchodilators 3. Continue chest tube to suction at -40 4. Daily chest x-ray 5. Antibiotics per pulmonary - on augmentin 6. On chronic prednisone 7. On antihypertensives 8. Artificial tears 9. GI/DVT prophylaxis Problem Qualifiers (1) Migraine headache: Qualified Codes: G43.009 - Migraine without aura, not intractable, without status migrainosus Tin Conroy MD Jan 13, 2018 10:01
[2018-01-13] MEDS: RESP: ALBUTEROL 2.5 MG/3 ML NEB (PRN) NEB (14:41)
--- NOTE | 2018-01-13 18:58 | HHI.PR ---
Subjective Remarks Was sent to ICU for Resp failure and has a New chest tube on left Now on O2 5 L CXR shows a left Pneumothorax. Feels SOB. Objective Vital Signs Date Time Temp Pulse Resp B/P (MAP) Pulse Ox O2 Delivery O2 Flow Rate FiO2 01/13/18 11:45 18 01/13/18 11:05 29 01/13/18 08:31 96 High Flow Nasal Cannula 20.00 40 01/13/18 07:00 95 Nasal Cannula 25.00 40 01/13/18 06:00 90 01/13/18 04:16 97 High Flow Nasal Cannula 25.00 40 01/13/18 04:00 87 01/13/18 04:00 98.5 87 27 110/74 (86) 96 01/13/18 02:00 85 01/13/18 00:00 82 01/13/18 00:00 99.1 75 24 107/73 (84) 93 01/12/18 22:00 96 01/12/18 20:00 98.2 93 22 119/83 (95) 94 01/12/18 20:00 93 01/12/18 19:56 94 High Flow Nasal Cannula 20.00 40 01/12/18 19:00 96 Nasal Cannula 25.00 40 I/O 01/12/18 01/12/18 01/12/18 01/13/18 01/13/18 01/13/18 07:00 15:00 23:00 07:00 15:00 23:00 Intake Total 450 ml 280 ml 720 ml Output Total 1081 ml 800 ml 610 ml Balance -631 ml -520 ml 110 ml Intake Oral 450 ml 280 ml 720 ml Output Urine Total 1075 ml 800 ml 600 ml Chest Tube Drainage Total 6 ml 0 ml 10 ml Drainage Total 0 ml # Bowel Movements 0 0 0 Result Diagram: 01/13/18 0320 01/13/18 0320 Objective Remarks GENERAL: This is a well-built middle-aged man who is awake and on O2. No pallor or icterus, or edema. HEAD, EYES, EARS, NOSE, THROAT: Head normocephalic. The pupils are reactive and equal. Tongue is moist. Throat clear. NECK: The neck is supple. No venous distention. CHEST: Decreased breath sounds over the left mid and upper chest with crackles at the lung bases.Chest Tube is in left chest. HEART: Heart sounds are regular. S1 and S2. No murmur. No S3. ABDOMEN: Abdomen soft and without masses. No organomegaly or tenderness. The bowel sounds are active. EXTREMITIES: No lesions. No edema. NEUROLOGIC: Reflexes are 1 +. SKIN: No lesions. Assessment and Plan Assessment and Plan IMPRESSION: 1. Recurrent left pneumothorax with hypoxemia. 2. COPD and chronic bronchitis with bronchiectasis. 3. Basilar pulmonary fibrosis. 4. Hypertension. 5. Respiratory failure Plan : 1. Cont Chest tube to suction 2. Wean O2 to 5 L 3. No sedation 4. Duonebs qid. 5. Cont Prednisone 10 mg daily 6. IS at bedside q3h 7. Pain control with [place] PRN 8. CXR in am 9. Cont Augmentin 875 mg bid Prerna Santos MD Jan 13, 2018 18:58
[2018-01-13] MEDS: REMOVE OLD LIDOCAINE PATCH T-DERMAL SCH (21:00)
[2018-01-14] VITALS (14 sets, daily range): BP systolic 106–117; BP diastolic 72–79; PULSE 76–100; RESP 19–30; TEMP 98–99.5; O2SAT 91–100
[2018-01-14] MEDS: HYDROmorphone HCL PF 2 MG/ML VIAL IV PUSH PRN ×3 (00:48→14:10)
[2018-01-14] MEDS: ARTIFICIAL TEARS OPTH SOLN 15 ML BTL EACH EYE SCH ×6 (01:00→22:34)
[2018-01-14] MEDS: RESP: ALBUTEROL 2.5 MG/IPRATROPIUM 0.5 MG NEB (SCH) NEB ×4 (03:46→21:36)
[2018-01-14 05:59] LABS: HEMATOCRIT 38.3 % (39.0-51.0); HEMOGLOBIN 12.8 GM/DL (13.0-17.0); MEAN CELL VOLUME 84.1 FL (80.0-100.0); MEAN CORPUSCULAR HEMOGLOBIN 28.1 PG (27.0-34.0); MEAN CORPUSCULAR HGB CONC 33.4 % (32.0-36.0); MEAN PLATELET VOLUME 7.7 FL (7.0-11.0); PLATELET COUNT 316 TH/MM3 (150-450); RED BLOOD COUNT 4.55 MIL/MM3 (4.50-5.90)
[2018-01-14 06:06] LABS: BICARBONATE 31.2 MEQ/L (21.0-32.0); CALCIUM 9.5 MG/DL (8.5-10.1); CREATININE 0.79 MG/DL (0.60-1.30); MAGNESIUM 1.8 MG/DL (1.5-2.5)
--- NOTE | 2018-01-14 06:15 | RADRPT ---
EXAM DATE/TIME: 01/14/2018 04:39 [facility] COMPARISON: CHEST SINGLE AP, January 13, 2018, 4:30. INDICATIONS : Followup left pneumothorax. MEDICAL HISTORY : Pneumothorax. SURGICAL HISTORY : Chest tube. ENCOUNTER: Subsequent ACUITY: 1 month PAIN SCORE: 10/10 LOCATION: Left chest FINDINGS: Moderate-sized loculated left pneumothorax again noted with mediastinal shift and not significantly c hanged in the interim. There is right greater than left parenchymal consolidation. No large effusion seen. No pneumothorax on the right. Heart size stable, upper limits of normal. CONCLUSION: Moderate-sized loculated left pneumothorax persists and with mediastinal shift not significantly martin ged. Arnoldo Christensen MD on January 14, 2018 at 6:13 Board Certified Radiologist. This report was verified electronically.
[2018-01-14] MEDS: CHLORHEXIDINE 0.12% (ORAL KIT) 15 ML CUP MT SCH ×2 (08:00→22:35)
[2018-01-14] MEDS: predniSONE 10 MG TAB PO SCH (08:14)
[2018-01-14] MEDS: SODIUM CHLORIDE 0.9% FLUSH 10 ML FLUSH IV FLUSH SCH ×2 (08:14→21:00)
[2018-01-14] MEDS: METOPROLOL TARTRATE 25 MG TAB PO SCH ×2 (08:14→20:02)
[2018-01-14] MEDS: FAMOTIDINE 20 MG/2 ML VIAL IV PUSH SCH ×2 (08:14→20:02)
[2018-01-14] MEDS: TIOTROPIUM BROMIDE 18 MCG INH INH SCH (08:14)
[2018-01-14] MEDS: DOCUSATE SODIUM 50 MG/SENNA 8.6 MG TAB PO SCH ×2 (08:14→20:02)
[2018-01-14] MEDS: guaiFENesin E.R. 600 MG TAB PO SCH ×3 (08:14→21:00)
[2018-01-14] MEDS: ENOXAPARIN SODIUM 40 MG/0.4 ML SYRINGE SQ SCH (08:14)
[2018-01-14] MEDS: BUDESONIDE-FORMOTEROL 160/4.5 MCG INHALER INH SCH ×2 (08:14→21:00)
[2018-01-14] MEDS: LIDOCAINE HCL 5% PATCH T-DERMAL SCH (08:15)
[2018-01-14] MEDS: guaiFENesin/CODEINE SYRUP 200 MG/20 MG/10 ML CUP PO PRN ×2 (12:05→18:00)
--- NOTE | 2018-01-14 13:40 | HHI.PR ---
Subjective Remarks Patient is on high flow oxygen 20L with 40% FIO2. Afebrile. Objective Vital Signs Vital Signs Date Time Temp Pulse Resp B/P (MAP) Pulse Ox O2 Delivery O2 Flow Rate FiO2 01/14/18 07:33 93 High Flow Nasal Cannula 20.00 40 01/14/18 06:00 96 01/14/18 04:00 98.9 100 30 113/74 (87) 100 01/14/18 04:00 100 01/14/18 02:00 98 01/14/18 01:18 24 01/14/18 00:14 24 01/14/18 00:00 82 01/14/18 00:00 98.8 82 25 110/77 (88) 92 01/13/18 22:00 84 01/13/18 20:39 99 High Flow Nasal Cannula 20.00 40 01/13/18 20:00 98.4 102 31 115/71 (86) 99 01/13/18 20:00 89 01/13/18 19:00 95 Nasal Cannula 30.00 50 01/13/18 18:55 28 01/13/18 18:00 84 01/13/18 16:00 98.2 96 28 115/76 (89) 93 01/13/18 16:00 96 01/13/18 14:00 84 I/O 01/13/18 01/13/18 01/13/18 01/14/18 01/14/18 01/14/18 07:00 15:00 23:00 07:00 15:00 23:00 Intake Total 720 ml 700 ml 600 ml Output Total 610 ml 1260 ml 650 ml Balance 110 ml -560 ml -50 ml Intake Oral 720 ml 700 ml 600 ml Output Urine Total 600 ml 1250 ml 650 ml Chest Tube Drainage Total 10 ml 5 ml Drainage Total 5 ml 0 ml # Voids 2 # Bowel Movements 0 Result Diagram: 01/14/18 0455 01/14/18 0455 Other Results Last Impressions Chest X-Ray 01/14/18 0400 Signed Impressions: Service Date/Time: Sunday, January 14, 2018 04:39 - CONCLUSION: Moderate-sized loculated left pneumothorax persists and with mediastinal shift not significantly changed. Arnoldo Christensen MD Objective Remarks GENERAL: Patient is 47 yo on high flow oxygen. SKIN: Warm and dry. HEAD: Normocephalic. EYES: No scleral icterus. No injection or drainage. NECK: Supple, trachea midline. No JVD or lymphadenopathy. CARDIOVASCULAR: Regular rate and rhythm without murmurs, gallops, or rubs. RESPIRATORY: Breath sounds equal bilaterally. Coarse BS GASTROINTESTINAL: Abdomen soft, non-tender, nondistended. MUSCULOSKELETAL: No cyanosis, or edema. Neuro: Awake, alert A/P Assessment and Plan 1)Acute hypercapnic and hypoxemic resp failure 2)Recurrent left pneumothorax 3)COPD and chronic bronchitis with bronchiectasis. 4)Basilar pulmonary fibrosis. 5)Hypertension. Plan : Wean down oxygen as to keep sat >92% Bronchodilators ( DuoNeb, Symbicort, Spiriva) NIPPV PRN for resp distress, IS Continue with Prednisone 10mg daily Chest tube to suction, CXR today - unchanged (Moderate-sized loculated left pneumothorax) CTS is following Pain control s/p Augmentin (01/06-01/13) GI/DVT prophylaxis Continue treatment plan Nedra Baron MD Jan 14, 2018 13:40
--- NOTE | 2018-01-14 13:57 | HHI.CCPN ---
Subjective Remarks/Hospital Course 47-year-old male with a past medical history significant for pulmonary fibrosis , COPD and hypertension and VATS/bleb resection/pleurodesis by Dr. Amanda on 08/23 is admitted to hospital with increased shortness of breath. Chart documentation for the past 24 hours prior to admission he has had significant fever/chills and increasing shortness of breath. Patient was found to have a left-sided pneumothorax on chest x-ray. The chest tube was placed and patient was admitted to medicine with pulmonary consultation in place. Today shortly after midnight the chest tube was found at the patient's bedside the dislodged, patient was in severe respiratory distress, diaphoretic and hypoxemic. The stat x-ray showed reaccumulation of left-sided pneumothorax and emergent chest tube was placed. 12/30 - resting in bed on 6 nasal cannula. Complaining of sore throat. Cough. Pneumothorax last left-sided similar size in reviewing chest x-ray this AM. Discussed with Dr. Blunt and patient 12/31: Resting in bed on nasal cannula. 6 L. Sore throat better controlled with Chloraseptic [place]. Small left sided pneumothorax similar in size from yesterday. Maintaining positive attitude. 01/01: no change. still quite dyspneic. on 6L and intermittently NRB. no new complaints. 01/02: Intermittent requiring nasal cannula versus nonrebreather mask. Remain short of breath. Small air leak persists. -40 cm H2O 01/03: Currently on nasal cannula 6 L. Appears depressed. Small air leak persists 1-2 chambers. -40 cm H2O. 01/04: Remains on nasal cannula 6 L. Switch is off and on between nonrebreather nasal cannula. Air leak persists. Pulmonology is okay with transfer to floor. 01/11: Per report, pigtail catheter placed earlier during hospitalization came out last night. Earlier this AM, patient with worsening respiratory distress, requiring NRM, with PO2 in the 50's. Stat CXR showing left sided pneumothorax. After discussing with patient, he was intubated and simultaneously had a left sided pigtail catheter placed. Currently, mechanically ventilated, Pip mid 20's synchronized with the vent. Chest tube at -40 with air leak. 01/12: No events over the night. Patient doing better, shortness of breath significantly improved, complaining of some chest pain over the chest tube site. Eyes feel better, no visual disturbances, no double vision, very happy with artificial tears. Better spirits. Left-sided chest tube with continuous air leak on suction at -40. He remains on high flow nasal cannula at 0.4 FiO2 and 35 L/min, with O2 sat of 100%. Morning chest x-ray reviewed, mild improvement in left-sided pneumothorax, unchanged infiltrates bilateral worse on the right. 01/13: Patient was weaned off to 6 L nasal cannula last evening over the night he required to be placed back on high flow due to desaturation to mid 80s. This morning he continues to require high flow nasal cannula flow increased from 25-35 L/min due to low O2 sat currently at 40% with sats in the 90s. Otherwise he feels a little better still complaining of some left-sided chest pain due to chest tube shortness of breath unchanged, eye discomfort significantly improved. Chest tube on suction at -40 with continuous air leak. T-max 99.2. 01/14: No events overnight. Patient still requiring high flow nasal cannula at 20 L/min and FiO2 of 0.4 with O2 sats in the mid 90s. Continuous continuous air leak on suction at -40 from a left-sided chest tube. Patient feels better, shortness of breath slightly improved, coughing, bringing up yellow-green sputum. No other complaints, good spirits. T-max 99.7. Morning chest x-ray reviewed, left-sided loculated pneumothorax unchanged. Still with persistent bilateral infiltrates, right worse than left. Objective Vital Signs Date Time Temp Pulse Resp B/P (MAP) Pulse Ox O2 Delivery O2 Flow Rate FiO2 01/14/18 07:33 93 High Flow Nasal Cannula 20.00 40 01/14/18 06:00 96 01/14/18 04:00 98.9 30 113/74 (87) Intake and Output 01/14/18 01/14/18 01/15/18 08:00 16:00 00:00 Intake Total 600 ml Output Total 650 ml Balance -50 ml Result Diagram: 01/14/18 0455 01/14/18 0455 Imaging Last Impressions Chest X-Ray 01/14/18 0400 Signed Impressions: Service Date/Time: Sunday, January 14, 2018 04:39 - CONCLUSION: Moderate-sized loculated left pneumothorax persists and with mediastinal shift not significantly changed. Arnoldo Christensen MD Last Impressions Chest X-Ray 01/13/18399 Signed Impressions: Service Date/Time: Saturday, January 13, 2018 04:30 - CONCLUSION: 1. Loculated moderate size left pneumothorax with mediastinal shift. Left chest tube remains in place. 2. Diffuse bilateral airspace opacities persist. Arnoldo Christensen MD Last Impressions Chest X-Ray 01/12/180 Signed Impressions: Service Date/Time: December 05:18 - CONCLUSION: 1. Mild interval improvement in left pneumothorax. Mediastinal shift to the right remains. 2. Diffuse airspace disease remains right greater than left. Saleem Mejia MD Procedures Chest tube placement Endotracheal tube placement Objective Remarks General - middle age gentleman, awake, alert, in no distress HEENT - pupils are equal, reactive, sclerae are anicteric, neck is supple, no JVD, moist mucous membranes, no thrush CV - regular heart sounds, no murmurs, rubs or gallops Chest -scattered coarse breath sounds bilateral, improved air entry over the left thorax, no wheezes, left-sided pigtail catheter in place with continuous air leak Abdomen - soft, non-tender, not distended, BS present Extremities - no edema, + peripheral pulses Neuro - awake alert and oriented 3, moves all extremities A/P Problem List: (1) Migraine headache ICD Code: G43.909 - Migraine, unspecified, not intractable, without status migrainosus Status: Chronic (2) Spontaneous pneumothorax ICD Code: J93.83 - Other pneumothorax Status: Acute (3) Recurrent spontaneous pneumothorax ICD Code: J93.83 - Other pneumothorax Status: Acute (4) COPD exacerbation ICD Code: J44.1 - Chronic obstructive pulmonary disease with (acute) exacerbation Status: Acute (5) Pulmonary fibrosis ICD Code: J84.10 - Pulmonary fibrosis, unspecified Status: Chronic Assessment and Plan 1. Acute hypoxic respiratory failure - requiring intubation and mechanical ventilation, now extubated, doing well 2. Persistent left sided pneumothorax - s/p emergent left sided chest tube placement, still with residual left-sided continuous air leak on chest tube to suction 3. COPD, chronic bronchitis with bronchiectasis 4. Pulmonary fibrosis 5. Possible pneumonia 6. HTN 1. Wean high flow nasal cannula to 6 L nasal cannula. Keep SPO2 88-92%. 2. Bronchodilators 3. Continue chest tube to suction at -40 4. Daily chest x-ray 5. Antibiotics per pulmonary - on augmentin 6. Send sputum culture 6. On chronic low-dose prednisone 7. On antihypertensives 8. Artificial tears 9. GI/DVT prophylaxis 10. Will discuss with pulmonary regarding cardiothoracic surgery consultation Problem Qualifiers (1) Migraine headache: Qualified Codes: G43.009 - Migraine without aura, not intractable, without status migrainosus Tin Conroy MD Jan 14, 2018 13:57
[2018-01-14] MEDS: RESP: ALBUTEROL 2.5 MG/3 ML NEB (PRN) NEB (18:09)
[2018-01-14] MEDS: REMOVE OLD LIDOCAINE PATCH T-DERMAL SCH (21:00)
[2018-01-14] MEDS: PHENOL 1.4% SOLN 180 ML BTL OROPHARYNG PRN (23:00)
[2018-01-15] VITALS (13 sets, daily range): BP systolic 95–115; BP diastolic 59–81; PULSE 71–105; RESP 19–26; TEMP 98.4–99.6; O2SAT 80–100
[2018-01-15] MEDS: ARTIFICIAL TEARS OPTH SOLN 15 ML BTL EACH EYE SCH ×5 (00:15→17:00)
[2018-01-15] MEDS: guaiFENesin/CODEINE SYRUP 200 MG/20 MG/10 ML CUP PO PRN ×4 (01:00→20:19)
[2018-01-15] MEDS: HYDROmorphone HCL PF 2 MG/ML VIAL IV PUSH PRN ×5 (02:45→23:20)
[2018-01-15] MEDS: RESP: ALBUTEROL 2.5 MG/IPRATROPIUM 0.5 MG NEB (SCH) NEB (04:00)
[2018-01-15 04:04] LABS: HEMATOCRIT 37.5 % (39.0-51.0); HEMOGLOBIN 12.8 GM/DL (13.0-17.0); MEAN CELL VOLUME 83.4 FL (80.0-100.0); MEAN CORPUSCULAR HEMOGLOBIN 28.4 PG (27.0-34.0); MEAN PLATELET VOLUME 7.5 FL (7.0-11.0); PLATELET COUNT 283 TH/MM3 (150-450)
[2018-01-15 04:38] LABS: BICARBONATE 29.4 MEQ/L (21.0-32.0); CALCIUM 9.2 MG/DL (8.5-10.1); CREATININE 0.64 MG/DL (0.60-1.30)
--- NOTE | 2018-01-15 05:35 | RADRPT ---
EXAM DATE/TIME: 01/15/2018 04:03 [facility] COMPARISON: CHEST SINGLE AP, January 14, 2018, 4:39. INDICATIONS : Followup left pneumothorax. MEDICAL HISTORY : Pneumothorax. SURGICAL HISTORY : Chest tube. ENCOUNTER: Subsequent ACUITY: 1 month PAIN SCORE: 10/10 LOCATION: Left chest FINDINGS: Right greater the left airspace opacities persist, not significantly changed. Moderate-sized loculate d left pneumothorax persists and with mediastinal shift, unchanged. A small caliber left chest tube r emains in place. No effusion. Heart size stable, within normal limits. CONCLUSION: No change right greater than left pulmonary opacities and moderate sized loculated left pneumothorax with mediastinal shift. Arnoldo Christensen MD on January 15, 2018 at 5:33 Board Certified Radiologist. This report was verified electronically.
[2018-01-15] MEDS: RESP: ALBUTEROL 2.5 MG/3 ML NEB (PRN) NEB ×3 (07:21→18:04)
[2018-01-15] MEDS: CHLORHEXIDINE 0.12% (ORAL KIT) 15 ML CUP MT SCH ×2 (08:00→20:00)
[2018-01-15] MEDS: guaiFENesin E.R. 600 MG TAB PO SCH ×2 (09:00→20:19)
[2018-01-15] MEDS: SODIUM CHLORIDE 0.9% FLUSH 10 ML FLUSH IV FLUSH SCH ×2 (09:00→20:19)
[2018-01-15] MEDS: FAMOTIDINE 20 MG/2 ML VIAL IV PUSH SCH ×2 (09:00→20:18)
[2018-01-15] MEDS: TIOTROPIUM BROMIDE 18 MCG INH INH SCH (09:00)
[2018-01-15] MEDS: predniSONE 10 MG TAB PO SCH (09:00)
[2018-01-15] MEDS: METOPROLOL TARTRATE 25 MG TAB PO SCH ×2 (09:00→20:19)
[2018-01-15] MEDS: LIDOCAINE HCL 5% PATCH T-DERMAL SCH (09:00)
[2018-01-15] MEDS: BUDESONIDE-FORMOTEROL 160/4.5 MCG INHALER INH SCH ×2 (09:00→20:20)
[2018-01-15] MEDS: DOCUSATE SODIUM 50 MG/SENNA 8.6 MG TAB PO SCH ×2 (09:00→20:19)
[2018-01-15] MEDS: ENOXAPARIN SODIUM 40 MG/0.4 ML SYRINGE SQ SCH (09:00)
--- NOTE | 2018-01-15 11:13 | HHI.CCPN ---
Subjective Remarks/Hospital Course 47-year-old male with a past medical history significant for pulmonary fibrosis , COPD and hypertension and VATS/bleb resection/pleurodesis by Dr. Amanda on 08/23 is admitted to hospital with increased shortness of breath. Chart documentation for the past 24 hours prior to admission he has had significant fever/chills and increasing shortness of breath. Patient was found to have a left-sided pneumothorax on chest x-ray. The chest tube was placed and patient was admitted to medicine with pulmonary consultation in place. Today shortly after midnight the chest tube was found at the patient's bedside the dislodged, patient was in severe respiratory distress, diaphoretic and hypoxemic. The stat x-ray showed reaccumulation of left-sided pneumothorax and emergent chest tube was placed. 12/30 - resting in bed on 6 nasal cannula. Complaining of sore throat. Cough. Pneumothorax last left-sided similar size in reviewing chest x-ray this AM. Discussed with Dr. Blunt and patient 12/31: Resting in bed on nasal cannula. 6 L. Sore throat better controlled with Chloraseptic [place]. Small left sided pneumothorax similar in size from yesterday. Maintaining positive attitude. 01/01: no change. still quite dyspneic. on 6L and intermittently NRB. no new complaints. 01/02: Intermittent requiring nasal cannula versus nonrebreather mask. Remain short of breath. Small air leak persists. -40 cm H2O 01/03: Currently on nasal cannula 6 L. Appears depressed. Small air leak persists 1-2 chambers. -40 cm H2O. 01/04: Remains on nasal cannula 6 L. Switch is off and on between nonrebreather nasal cannula. Air leak persists. Pulmonology is okay with transfer to floor. 01/11: Per report, pigtail catheter placed earlier during hospitalization came out last night. Earlier this AM, patient with worsening respiratory distress, requiring NRM, with PO2 in the 50's. Stat CXR showing left sided pneumothorax. After discussing with patient, he was intubated and simultaneously had a left sided pigtail catheter placed. Currently, mechanically ventilated, Pip mid 20's synchronized with the vent. Chest tube at -40 with air leak. 01/12: No events over the night. Patient doing better, shortness of breath significantly improved, complaining of some chest pain over the chest tube site. Eyes feel better, no visual disturbances, no double vision, very happy with artificial tears. Better spirits. Left-sided chest tube with continuous air leak on suction at -40. He remains on high flow nasal cannula at 0.4 FiO2 and 35 L/min, with O2 sat of 100%. Morning chest x-ray reviewed, mild improvement in left-sided pneumothorax, unchanged infiltrates bilateral worse on the right. 01/13: Patient was weaned off to 6 L nasal cannula last evening over the night he required to be placed back on high flow due to desaturation to mid 80s. This morning he continues to require high flow nasal cannula flow increased from 25-35 L/min due to low O2 sat currently at 40% with sats in the 90s. Otherwise he feels a little better still complaining of some left-sided chest pain due to chest tube shortness of breath unchanged, eye discomfort significantly improved. Chest tube on suction at -40 with continuous air leak. T-max 99.2. 01/14: No events overnight. Patient still requiring high flow nasal cannula at 20 L/min and FiO2 of 0.4 with O2 sats in the mid 90s. Continuous continuous air leak on suction at -40 from a left-sided chest tube. Patient feels better, shortness of breath slightly improved, coughing, bringing up yellow-green sputum. No other complaints, good spirits. T-max 99.7. Morning chest x-ray reviewed, left-sided loculated pneumothorax unchanged. Still with persistent bilateral infiltrates, right worse than left. 01/15: No events overnight. Patient on high flow nasal cannula 20 L/min FiO2 of 0.3, tapering it down. Still some left-sided chest pain on the pigtail catheter. No other complaints. Morning chest x-ray reviewed, left-sided loculated pneumothorax is unchanged as well as persistent bilateral infiltrates. Chest tube to suction at -40 with continuous air leak. Objective Vital Signs Date Time Temp Pulse Resp B/P (MAP) Pulse Ox O2 Delivery O2 Flow Rate FiO2 01/15/18 07:21 100 High Flow Nasal Cannula 20.00 35 01/15/18 06:00 92 01/15/18 04:00 98.6 19 110/73 (85) Intake and Output 01/15/18 01/15/18 01/16/18 08:00 16:00 00:00 Intake Total 450 ml Output Total 650 ml Balance -200 ml Result Diagram: 01/15/18 0320 01/15/18 0320 Imaging Last 24 hours Impressions Chest X-Ray 01/15/18 0600 Signed Impressions: Service Date/Time: Monday, January 15, 2018 04:03 - CONCLUSION: No change right greater than left pulmonary opacities and moderate sized loculated left pneumothorax with mediastinal shift. Arnoldo Christensen MD Last Impressions Chest X-Ray 01/14/18399 Signed Impressions: Service Date/Time: Sunday, January 14, 2018 04:39 - CONCLUSION: Moderate-sized loculated left pneumothorax persists and with mediastinal shift not significantly changed. Arnoldo Christensen MD Last Impressions Chest X-Ray 01/13/18399 Signed Impressions: Service Date/Time: Saturday, January 13, 2018 04:30 - CONCLUSION: 1. Loculated moderate size left pneumothorax with mediastinal shift. Left chest tube remains in place. 2. Diffuse bilateral airspace opacities persist. Arnoldo Christensen MD Last Impressions Chest X-Ray 01/12/18399 Signed Impressions: Service Date/Time: December 05:18 - CONCLUSION: 1. Mild interval improvement in left pneumothorax. Mediastinal shift to the right remains. 2. Diffuse airspace disease remains right greater than left. Saleem Mejia MD Procedures Chest tube placement Endotracheal tube placement Objective Remarks General - middle age gentleman, awake, alert, in no distress HEENT - pupils equal, reactive, sclerae anicteric, neck supple, neck veins nondistended, moist mucous membranes CV - regular heart sounds, no murmurs, rubs or gallops Chest -scattered coarse breath sounds bilateral, improved air entry over the left thorax, no wheezes, left-sided pigtail catheter in place with continuous air leak Abdomen - soft, non-tender, not distended, BS present Extremities - no edema, + peripheral pulses Neuro - awake alert and oriented 3, moves all extremities A/P Problem List: (1) Migraine headache ICD Code: G43.909 - Migraine, unspecified, not intractable, without status migrainosus Status: Chronic (2) Spontaneous pneumothorax ICD Code: J93.83 - Other pneumothorax Status: Acute (3) Recurrent spontaneous pneumothorax ICD Code: J93.83 - Other pneumothorax Status: Acute (4) COPD exacerbation ICD Code: J44.1 - Chronic obstructive pulmonary disease with (acute) exacerbation Status: Acute (5) Pulmonary fibrosis ICD Code: J84.10 - Pulmonary fibrosis, unspecified Status: Chronic Assessment and Plan 1. Acute hypoxic respiratory failure - requiring intubation and mechanical ventilation, now extubated, doing well 2. 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 COPD, chronic bronchitis with bronchiectasis 4. Pulmonary fibrosis 5. Possible pneumonia 6. HTN 1. Wean high flow nasal cannula to 6 L nasal cannula. Keep SPO2 88-92%. 2. Bronchodilators 3. Continue chest tube to suction at -40 4. Daily chest x-ray 5. Antibiotics per pulmonary - on augmentin 6. Repeat sputum culture sent 6. On chronic low-dose prednisone 7. On antihypertensives with amlodipine and metoprolol 8. Artificial tears as needed 9. We will start low-dose Xanax as needed for anxiety -discussed with the patient and he agrees 10. GI/DVT prophylaxis 11. Will discuss with pulmonary regarding cardiothoracic surgery reevaluation seems despite multiple chest tubes patient continues to have persistent air leak and loculated pneumothorax Problem Qualifiers (1) Migraine headache: Qualified Codes: G43.009 - Migraine without aura, not intractable, without status migrainosus Tin Conroy MD Jan 15, 2018 11:13
--- NOTE | 2018-01-15 12:07 | HHI.PR ---
Subjective Remarks Patient is on high flow oxygen 20L with 35% FIO2. Afebrile. CXR this morning unchanged. Objective Vital Signs Vital Signs Date Time Temp Pulse Resp B/P (MAP) Pulse Ox O2 Delivery O2 Flow Rate FiO2 01/15/18 07:21 100 High Flow Nasal Cannula 20.00 35 01/15/18 07:00 96 Nasal Cannula 30.00 50 01/15/18 06:00 92 01/15/18 04:00 98.6 80 19 110/73 (85) 80 01/15/18 04:00 78 01/15/18 02:00 80 01/15/18 00:00 98.4 80 26 103/62 (76) 84 01/15/18 00:00 80 01/14/18 22:00 84 01/14/18 21:36 95 High Flow Nasal Cannula 20.00 40 01/14/18 20:00 98.1 93 19 116/79 (91) 97 01/14/18 20:00 93 01/14/18 19:00 96 Nasal Cannula 30.00 50 01/14/18 18:00 90 01/14/18 16:00 98.0 76 24 113/73 (86) 91 01/14/18 16:00 76 01/14/18 14:00 76 I/O 01/14/18 01/14/18 01/14/18 01/15/18 01/15/18 01/15/18 07:00 15:00 23:00 07:00 15:00 23:00 Intake Total 600 ml 720 ml 450 ml Output Total 650 ml 1106 ml 650 ml Balance -50 ml -386 ml -200 ml Intake Oral 600 ml 720 ml 450 ml Output Urine Total 650 ml 1100 ml 650 ml Chest Tube Drainage Total 6 ml Drainage Total 0 ml 0 ml # Bowel Movements 0 0 Result Diagram: 01/15/18 0320 01/15/18 0320 Other Results Last Impressions Chest X-Ray 01/15/18 0600 Signed Impressions: Service Date/Time: Monday, January 15, 2018 04:03 - CONCLUSION: No change right greater than left pulmonary opacities and moderate sized loculated left pneumothorax with mediastinal shift. Arnoldo Christensen MD Objective Remarks GENERAL: Patient is 47 yo on high flow oxygen. SKIN: Warm and dry. HEAD: Normocephalic. EYES: No scleral icterus. No injection or drainage. NECK: Supple, trachea midline. No JVD or lymphadenopathy. CARDIOVASCULAR: Regular rate and rhythm without murmurs, gallops, or rubs. RESPIRATORY: Breath sounds equal bilaterally. Coarse BS GASTROINTESTINAL: Abdomen soft, non-tender, nondistended. MUSCULOSKELETAL: No cyanosis, or edema. Neuro: Awake, alert A/P Assessment and Plan 1)Acute hypercapnic and hypoxemic resp failure 2)Recurrent left pneumothorax 3)COPD and chronic bronchitis with bronchiectasis. 4)Basilar pulmonary fibrosis. 5)Hypertension. Plan : Continue to wean down oxygen as to keep sat >92% Bronchodilators ( DuoNeb, Symbicort, Spiriva) NIPPV PRN for resp distress, IS Change prednisone to solumederol 40mg IV Q6 Chest tube to suction, CXR today - No change right greater than left pulmonary opacities and moderate sized loculated left pneumothorax with mediastinal shift. CTS is following- Dr. Blunt, possible needs for VATS . Pain control s/p Augmentin (01/06-01/13) GI/DVT prophylaxis Continue treatment plan Nedra Baron MD Jan 15, 2018 12:07
[2018-01-15] MEDS: methylPREDNISolone SOD SUCC 40 MG/1 ML VIAL IV PUSH SCH ×2 (12:15→18:00)
[2018-01-15] MEDS: ALPRAZolam 0.25 MG TAB PO PRN (12:30)
[2018-01-15] MEDS ORDERED: ARTIFICIAL TEARS OPTH SOLN 15 ML BTL EACH EYE PRN (18:00)
[2018-01-15] MEDS: REMOVE OLD LIDOCAINE PATCH T-DERMAL SCH (21:00)
[2018-01-16] VITALS (14 sets, daily range): BP systolic 109–150; BP diastolic 76–101; PULSE 68–104; RESP 18–28; TEMP 97.8–98.6; O2SAT 93–100
[2018-01-16] MEDS: methylPREDNISolone SOD SUCC 40 MG/1 ML VIAL IV PUSH SCH ×4 (00:37→17:58)
[2018-01-16] MEDS: ALPRAZolam 0.25 MG TAB PO PRN ×2 (00:46→18:00)
[2018-01-16] MEDS: RESP: ALBUTEROL 2.5 MG/3 ML NEB (PRN) NEB ×3 (00:48→19:47)
[2018-01-16] MEDS: HYDROmorphone HCL PF 2 MG/ML VIAL IV PUSH PRN ×5 (01:24→21:10)
[2018-01-16] MEDS: guaiFENesin/CODEINE SYRUP 200 MG/20 MG/10 ML CUP PO PRN ×2 (02:52→21:13)
[2018-01-16 05:17] LABS: HEMATOCRIT 38.8 % (39.0-51.0); HEMOGLOBIN 13.4 GM/DL (13.0-17.0); MEAN CELL VOLUME 82.9 FL (80.0-100.0); MEAN CORPUSCULAR HEMOGLOBIN 28.5 PG (27.0-34.0); MEAN CORPUSCULAR HGB CONC 34.4 % (32.0-36.0); MEAN PLATELET VOLUME 7.5 FL (7.0-11.0); PLATELET COUNT 324 TH/MM3 (150-450); RED BLOOD COUNT 4.68 MIL/MM3 (4.50-5.90); WHITE BLOOD COUNT 6.3 TH/MM3 (4.0-11.0)
[2018-01-16 05:42] LABS: BICARBONATE 27.3 MEQ/L (21.0-32.0); CALCIUM 9.4 MG/DL (8.5-10.1); CREATININE 0.67 MG/DL (0.60-1.30)
--- NOTE | 2018-01-16 05:52 | RADRPT ---
EXAM DATE/TIME: 01/16/2018 04:49 [facility] COMPARISON: CHEST SINGLE AP, January 15, 2018, 4:03. INDICATIONS : Short of breath. MEDICAL HISTORY : Pneumothorax. SURGICAL HISTORY : Chest tube. ENCOUNTER: Subsequent ACUITY: 2 weeks PAIN SCORE: 0/10 LOCATION: Bilateral chest FINDINGS: There is a stable inferior left chest tube. Loculated left pneumothoraces in the apex and lateral inf erior hemithorax are unchanged. Diffuse interstitial and patchy bilateral airspace disease. Persisten t mediastinal shift to the right. Cardiomediastinal contours are otherwise stable. Remainder of exam is unchanged. CONCLUSION: 1. Stable left-sided chest tube in place with persistent loculated left pneumothoraces and mediastina l shift to the right. 2. Stable interstitial and patchy airspace disease, right greater than left. Zac Cabrera MD on January 16, 2018 at 5:49 Board Certified Radiologist. This report was verified electronically.
[2018-01-16] MEDS: CHLORHEXIDINE 0.12% (ORAL KIT) 15 ML CUP MT SCH ×2 (08:00→20:00)
[2018-01-16] MEDS: FAMOTIDINE 20 MG/2 ML VIAL IV PUSH SCH ×2 (08:16→21:08)
[2018-01-16] MEDS: BUDESONIDE-FORMOTEROL 160/4.5 MCG INHALER INH SCH ×2 (08:16→21:11)
[2018-01-16] MEDS: TIOTROPIUM BROMIDE 18 MCG INH INH SCH (08:16)
[2018-01-16] MEDS: guaiFENesin E.R. 600 MG TAB PO SCH ×3 (08:16→21:08)
[2018-01-16] MEDS: SODIUM CHLORIDE 0.9% FLUSH 10 ML FLUSH IV FLUSH SCH ×2 (08:16→21:10)
[2018-01-16] MEDS: METOPROLOL TARTRATE 25 MG TAB PO SCH ×2 (08:16→21:00)
[2018-01-16] MEDS: DOCUSATE SODIUM 50 MG/SENNA 8.6 MG TAB PO SCH ×2 (08:17→21:08)
[2018-01-16] MEDS: LIDOCAINE HCL 5% PATCH T-DERMAL SCH (08:17)
[2018-01-16] MEDS: ENOXAPARIN SODIUM 40 MG/0.4 ML SYRINGE SQ SCH (08:17)
--- NOTE | 2018-01-16 08:32 | HHI.CCPN ---
Subjective Remarks/Hospital Course 47-year-old male with a past medical history significant for pulmonary fibrosis , COPD and hypertension and VATS/bleb resection/pleurodesis by Dr. Amanda on 08/23 is admitted to hospital with increased shortness of breath. Chart documentation for the past 24 hours prior to admission he has had significant fever/chills and increasing shortness of breath. Patient was found to have a left-sided pneumothorax on chest x-ray. The chest tube was placed and patient was admitted to medicine with pulmonary consultation in place. Today shortly after midnight the chest tube was found at the patient's bedside the dislodged, patient was in severe respiratory distress, diaphoretic and hypoxemic. The stat x-ray showed reaccumulation of left-sided pneumothorax and emergent chest tube was placed. 12/30 - resting in bed on 6 nasal cannula. Complaining of sore throat. Cough. Pneumothorax last left-sided similar size in reviewing chest x-ray this AM. Discussed with Dr. Blunt and patient 12/31: Resting in bed on nasal cannula. 6 L. Sore throat better controlled with Chloraseptic [place]. Small left sided pneumothorax similar in size from yesterday. Maintaining positive attitude. 01/01: no change. still quite dyspneic. on 6L and intermittently NRB. no new complaints. 01/02: Intermittent requiring nasal cannula versus nonrebreather mask. Remain short of breath. Small air leak persists. -40 cm H2O 01/03: Currently on nasal cannula 6 L. Appears depressed. Small air leak persists 1-2 chambers. -40 cm H2O. 01/04: Remains on nasal cannula 6 L. Switch is off and on between nonrebreather nasal cannula. Air leak persists. Pulmonology is okay with transfer to floor. 01/11: Per report, pigtail catheter placed earlier during hospitalization came out last night. Earlier this AM, patient with worsening respiratory distress, requiring NRM, with PO2 in the 50's. Stat CXR showing left sided pneumothorax. After discussing with patient, he was intubated and simultaneously had a left sided pigtail catheter placed. Currently, mechanically ventilated, Pip mid 20's synchronized with the vent. Chest tube at -40 with air leak. 01/12: No events over the night. Patient doing better, shortness of breath significantly improved, complaining of some chest pain over the chest tube site. Eyes feel better, no visual disturbances, no double vision, very happy with artificial tears. Better spirits. Left-sided chest tube with continuous air leak on suction at -40. He remains on high flow nasal cannula at 0.4 FiO2 and 35 L/min, with O2 sat of 100%. Morning chest x-ray reviewed, mild improvement in left-sided pneumothorax, unchanged infiltrates bilateral worse on the right. 01/13: Patient was weaned off to 6 L nasal cannula last evening over the night he required to be placed back on high flow due to desaturation to mid 80s. This morning he continues to require high flow nasal cannula flow increased from 25-35 L/min due to low O2 sat currently at 40% with sats in the 90s. Otherwise he feels a little better still complaining of some left-sided chest pain due to chest tube shortness of breath unchanged, eye discomfort significantly improved. Chest tube on suction at -40 with continuous air leak. T-max 99.2. 01/14: No events overnight. Patient still requiring high flow nasal cannula at 20 L/min and FiO2 of 0.4 with O2 sats in the mid 90s. Continuous continuous air leak on suction at -40 from a left-sided chest tube. Patient feels better, shortness of breath slightly improved, coughing, bringing up yellow-green sputum. No other complaints, good spirits. T-max 99.7. Morning chest x-ray reviewed, left-sided loculated pneumothorax unchanged. Still with persistent bilateral infiltrates, right worse than left. 01/15: No events overnight. Patient on high flow nasal cannula 20 L/min FiO2 of 0.3, tapering it down. Still some left-sided chest pain on the pigtail catheter. No other complaints. Morning chest x-ray reviewed, left-sided loculated pneumothorax is unchanged as well as persistent bilateral infiltrates. Chest tube to suction at -40 with continuous air leak. 01/16: no changes. remains on high flow NC. no improvements. chest tube to suction. Objective Vital Signs Date Time Temp Pulse Resp B/P (MAP) Pulse Ox O2 Delivery O2 Flow Rate FiO2 01/16/18 06:00 87 01/16/18 04:00 98.3 24 124/76 (92) 100 01/16/18 00:48 High Flow Nasal Cannula 20.00 30 Intake and Output 01/16/18 01/16/18 01/17/18 08:00 16:00 00:00 Intake Total 460 ml Output Total 750 ml Balance -290 ml Result Diagram: 01/16/1843601/16/18 043 Imaging Last 24 hours Impressions Chest X-Ray 01/15/18 0600 Signed Impressions: Service Date/Time: Monday, January 15, 2018 04:03 - CONCLUSION: No change right greater than left pulmonary opacities and moderate sized loculated left pneumothorax with mediastinal shift. Arnoldo Christensen MD Last Impressions Chest X-Ray 01/14/18399 Signed Impressions: Service Date/Time: Sunday, January 14, 2018 04:39 - CONCLUSION: Moderate-sized loculated left pneumothorax persists and with mediastinal shift not significantly changed. Arnoldo Christensen MD Last Impressions Chest X-Ray 01/13/18399 Signed Impressions: Service Date/Time: Saturday, January 13, 2018 04:30 - CONCLUSION: 1. Loculated moderate size left pneumothorax with mediastinal shift. Left chest tube remains in place. 2. Diffuse bilateral airspace opacities persist. Arnoldo Christensen MD Last Impressions Chest X-Ray 01/12/18399 Signed Impressions: Service Date/Time: December 05:18 - CONCLUSION: 1. Mild interval improvement in left pneumothorax. Mediastinal shift to the right remains. 2. Diffuse airspace disease remains right greater than left. Saleem Mejia MD Procedures Chest tube placement Endotracheal tube placement Objective Remarks General - middle age gentleman, awake, alert, in no distress HEENT - pupils equal, reactive, sclerae anicteric, neck supple, neck veins nondistended, moist mucous membranes CV - regular heart sounds, no murmurs, rubs or gallops Chest -scattered coarse breath sounds bilateral, improved air entry over the left thorax, no wheezes, left-sided pigtail catheter in place with now intermittent 1+ air leak with cough. Abdomen - soft, non-tender, not distended, BS present Extremities - no edema, + peripheral pulses Neuro - awake alert and oriented 3, moves all extremities A/P Problem List: (1) Migraine headache ICD Code: G43.909 - Migraine, unspecified, not intractable, without status migrainosus Status: Chronic (2) Spontaneous pneumothorax ICD Code: J93.83 - Other pneumothorax Status: Acute (3) Recurrent spontaneous pneumothorax ICD Code: J93.83 - Other pneumothorax Status: Acute (4) COPD exacerbation ICD Code: J44.1 - Chronic obstructive pulmonary disease with (acute) exacerbation Status: Acute (5) Pulmonary fibrosis ICD Code: J84.10 - Pulmonary fibrosis, unspecified Status: Chronic Assessment and Plan 1. Acute hypoxic respiratory failure - requiring intubation and mechanical ventilation, now extubated, though hypoxemia persists. 2. 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 COPD, chronic bronchitis with bronchiectasis 4. Pulmonary fibrosis 5. HTN 1. Wean high flow nasal cannula as tolerated. goal spo2 > 88%. 2. Bronchodilators 3. Continue chest tube to suction at -40 4. Daily chest x-ray 5. s/p full course augmentin. 6. pulm restarted methylprednisolone yesterday (transitioned from oral pred) 7. On antihypertensives with amlodipine and metoprolol 8. Artificial tears as needed 9. low-dose Xanax as needed for anxiety -discussed with the patient and he agrees 10. GI/DVT prophylaxis 11. Have discussed extensively with patient, Dr. Santos and . patient still not a candidate for CT surgery here due to friable tissue. most likely would benefit from permanent valve, but more-over, needs work-up for transplant, as his lung disease is fairly rapidly progressive. Dr. Santos to attempt to find accepting physician at [facility] for transfer for management of chronic PTX but also initializing work-up for transplant. Problem Qualifiers (1) Migraine headache: Qualified Codes: G43.009 - Migraine without aura, not intractable, without status migrainosus Hernan Serna MD Jan 16, 2018 08:32
--- NOTE | 2018-01-16 12:29 | HHI.PR ---
Subjective Remarks Was sent to ICU for Resp failure and has a New chest tube on left Now on High flow O2 at 30 % FIO2 CXR shows a left Pneumothorax. Feels SOB. Objective Vital Signs Date Time Temp Pulse Resp B/P (MAP) Pulse Ox O2 Delivery O2 Flow Rate FiO2 01/16/18 12:00 98.5 77 28 118/78 (91) 96 01/16/18 12:00 77 01/16/18 10:00 80 01/16/18 08:00 86 01/16/18 08:00 98.5 94 26 150/101 (117) 96 01/16/18 07:00 94 Nasal Cannula 30.00 01/16/18 06:00 87 01/16/18 04:00 98.3 78 24 124/76 (92) 100 01/16/18 04:00 78 01/16/18 02:00 68 01/16/18 00:48 95 High Flow Nasal Cannula 20.00 30 01/16/18 00:00 69 01/16/18 00:00 98.6 69 18 113/82 (92) 96 01/15/18 22:00 77 01/15/18 20:00 93 01/15/18 20:00 98.4 97 24 107/81 (90) 92 01/15/18 19:00 94 Nasal Cannula 30.00 01/15/18 18:00 105 01/15/18 16:00 81 01/15/18 16:00 98.5 84 25 95/59 (71) 88 01/15/18 14:00 71 I/O 01/15/18 01/15/18 01/15/18 01/16/18 01/16/18 01/16/18 07:00 15:00 23:00 07:00 15:00 23:00 Intake Total 450 ml 420 ml 460 ml Output Total 650 ml 600 ml 750 ml Balance -200 ml -180 ml -290 ml Intake Oral 450 ml 420 ml 460 ml Output Urine Total 650 ml 600 ml 750 ml Drainage Total 0 ml 0 ml # Bowel Movements 0 0 0 Result Diagram: 01/16/1843601/16/18436 Objective Remarks GENERAL: This is a well-built middle-aged man who is awake and on O2. No pallor or icterus, or edema. HEAD, EYES, EARS, NOSE, THROAT: Head normocephalic. The pupils are reactive and equal. Tongue is moist. Throat clear. NECK: The neck is supple. No venous distention. CHEST: Decreased breath sounds over the left mid and upper chest with crackles at the lung bases.Chest Tube is in left chest. HEART: Heart sounds are regular. S1 and S2. No murmur. No S3. ABDOMEN: Abdomen soft and without masses. No organomegaly or tenderness. The bowel sounds are active. EXTREMITIES: No lesions. No edema. NEUROLOGIC: Reflexes are 1 +. SKIN: No lesions. Assessment and Plan Assessment and Plan IMPRESSION: 1. Recurrent left pneumothorax with hypoxemia. 2. COPD and chronic bronchitis with bronchiectasis. 3. Basilar pulmonary fibrosis. 4. Hypertension. 5. Respiratory failure Plan : 1. Cont Chest tube to suction 2. Wean O2 to 5 L 3. No sedation 4. Duonebs qid. 5. Prednisone 10 mg daily 6. IS at bedside q3h 7. Pain control with [place] PRN 8. CXR in am 9. Will Ask [facility] if they will Accept him for Endobronchial valve or Transplant Prerna Santos MD Jan 16, 2018 12:29
[2018-01-16] MEDS: REMOVE OLD LIDOCAINE PATCH T-DERMAL SCH (21:00)
[2018-01-17] VITALS (15 sets, daily range): BP systolic 111–139; BP diastolic 70–87; PULSE 80–98; RESP 13–28; TEMP 97.9–98.2; O2SAT 94–100
[2018-01-17] MEDS: methylPREDNISolone SOD SUCC 40 MG/1 ML VIAL IV PUSH SCH ×5 (00:42→23:52)
[2018-01-17] MEDS: HYDROmorphone HCL PF 2 MG/ML VIAL IV PUSH PRN ×5 (01:00→20:27)
[2018-01-17] MEDS: RESP: ALBUTEROL 2.5 MG/IPRATROPIUM 0.5 MG NEB (SCH) INH ×4 (03:01→21:18)
[2018-01-17] MEDS: ALPRAZolam 0.25 MG TAB PO PRN ×3 (03:16→23:53)
[2018-01-17] MEDS: SODIUM CHLORIDE 0.9% FLUSH 10 ML FLUSH IV FLUSH PRN ×2 (05:58→20:29)
[2018-01-17] MEDS: CHLORHEXIDINE 0.12% (ORAL KIT) 15 ML CUP MT SCH ×2 (08:00→19:56)
[2018-01-17] MEDS: FAMOTIDINE 20 MG/2 ML VIAL IV PUSH SCH ×2 (08:06→20:27)
[2018-01-17] MEDS: DOCUSATE SODIUM 50 MG/SENNA 8.6 MG TAB PO SCH ×2 (08:07→20:27)
[2018-01-17] MEDS: SODIUM CHLORIDE 0.9% FLUSH 10 ML FLUSH IV FLUSH SCH ×2 (08:07→20:28)
[2018-01-17] MEDS: guaiFENesin E.R. 600 MG TAB PO SCH ×2 (08:07→20:29)
[2018-01-17] MEDS: LIDOCAINE HCL 5% PATCH T-DERMAL SCH (08:07)
[2018-01-17] MEDS: ENOXAPARIN SODIUM 40 MG/0.4 ML SYRINGE SQ SCH (08:07)
[2018-01-17] MEDS: guaiFENesin/CODEINE SYRUP 200 MG/20 MG/10 ML CUP PO PRN ×2 (08:21→20:27)
[2018-01-17] MEDS: METOPROLOL TARTRATE 25 MG TAB PO SCH ×2 (09:00→20:29)
[2018-01-17] MEDS: TIOTROPIUM BROMIDE 18 MCG INH INH SCH (09:00)
--- NOTE | 2018-01-17 13:12 | HHI.CCPN ---
Subjective Remarks/Hospital Course 47-year-old male with a past medical history significant for pulmonary fibrosis , COPD and hypertension and VATS/bleb resection/pleurodesis by Dr. Amanda on 08/23 is admitted to hospital with increased shortness of breath. Chart documentation for the past 24 hours prior to admission he has had significant fever/chills and increasing shortness of breath. Patient was found to have a left-sided pneumothorax on chest x-ray. The chest tube was placed and patient was admitted to medicine with pulmonary consultation in place. Today shortly after midnight the chest tube was found at the patient's bedside the dislodged, patient was in severe respiratory distress, diaphoretic and hypoxemic. The stat x-ray showed reaccumulation of left-sided pneumothorax and emergent chest tube was placed. 12/30 - resting in bed on 6 nasal cannula. Complaining of sore throat. Cough. Pneumothorax last left-sided similar size in reviewing chest x-ray this AM. Discussed with Dr. Blunt and patient 12/31: Resting in bed on nasal cannula. 6 L. Sore throat better controlled with Chloraseptic [place]. Small left sided pneumothorax similar in size from yesterday. Maintaining positive attitude. 01/01: no change. still quite dyspneic. on 6L and intermittently NRB. no new complaints. 01/02: Intermittent requiring nasal cannula versus nonrebreather mask. Remain short of breath. Small air leak persists. -40 cm H2O 01/03: Currently on nasal cannula 6 L. Appears depressed. Small air leak persists 1-2 chambers. -40 cm H2O. 01/04: Remains on nasal cannula 6 L. Switch is off and on between nonrebreather nasal cannula. Air leak persists. Pulmonology is okay with transfer to floor. 01/11: Per report, pigtail catheter placed earlier during hospitalization came out last night. Earlier this AM, patient with worsening respiratory distress, requiring NRM, with PO2 in the 50's. Stat CXR showing left sided pneumothorax. After discussing with patient, he was intubated and simultaneously had a left sided pigtail catheter placed. Currently, mechanically ventilated, Pip mid 20's synchronized with the vent. Chest tube at -40 with air leak. 01/12: No events over the night. Patient doing better, shortness of breath significantly improved, complaining of some chest pain over the chest tube site. Eyes feel better, no visual disturbances, no double vision, very happy with artificial tears. Better spirits. Left-sided chest tube with continuous air leak on suction at -40. He remains on high flow nasal cannula at 0.4 FiO2 and 35 L/min, with O2 sat of 100%. Morning chest x-ray reviewed, mild improvement in left-sided pneumothorax, unchanged infiltrates bilateral worse on the right. 01/13: Patient was weaned off to 6 L nasal cannula last evening over the night he required to be placed back on high flow due to desaturation to mid 80s. This morning he continues to require high flow nasal cannula flow increased from 25-35 L/min due to low O2 sat currently at 40% with sats in the 90s. Otherwise he feels a little better still complaining of some left-sided chest pain due to chest tube shortness of breath unchanged, eye discomfort significantly improved. Chest tube on suction at -40 with continuous air leak. T-max 99.2. 01/14: No events overnight. Patient still requiring high flow nasal cannula at 20 L/min and FiO2 of 0.4 with O2 sats in the mid 90s. Continuous continuous air leak on suction at -40 from a left-sided chest tube. Patient feels better, shortness of breath slightly improved, coughing, bringing up yellow-green sputum. No other complaints, good spirits. T-max 99.7. Morning chest x-ray reviewed, left-sided loculated pneumothorax unchanged. Still with persistent bilateral infiltrates, right worse than left. 01/15: No events overnight. Patient on high flow nasal cannula 20 L/min FiO2 of 0.3, tapering it down. Still some left-sided chest pain on the pigtail catheter. No other complaints. Morning chest x-ray reviewed, left-sided loculated pneumothorax is unchanged as well as persistent bilateral infiltrates. Chest tube to suction at -40 with continuous air leak. 01/16: no changes. remains on high flow NC. no improvements. chest tube to suction. 01/17: down to 6L o2 by NC today. no air leak on CT. still complaints of stable dyspnea. Objective Vital Signs Date Time Temp Pulse Resp B/P (MAP) Pulse Ox O2 Delivery O2 Flow Rate FiO2 01/17/18 11:26 97 Nasal Cannula 4.00 01/17/18 08:00 98.2 87 20 118/85 (96) 01/16/18 00:48 30 Intake and Output 01/17/18 01/17/18 01/18/18 08:00 16:00 00:00 Intake Total 1080 ml Output Total 616 ml Balance 464 ml Result Diagram: 01/16/18 0437 01/16/18 0437 Other Results Microbiology Date/Time Source Procedure Growth Status 01/14/18 18:00 Sputum Expectorated Sputum Gram Stain - Final Complete 01/14/18 18:00 Sputum Expectorated Sputum Sputum Culture - Final HEAVY GROWTH NORMAL RESPIRATORY MAKSIM Complete Imaging Last 24 hours Impressions Chest X-Ray 01/15/18 0600 Signed Impressions: Service Date/Time: Monday, January 15, 2018 04:03 - CONCLUSION: No change right greater than left pulmonary opacities and moderate sized loculated left pneumothorax with mediastinal shift. Arnoldo Christensen MD Last Impressions Chest X-Ray 01/14/18 0400 Signed Impressions: Service Date/Time: Sunday, January 14, 2018 04:39 - CONCLUSION: Moderate-sized loculated left pneumothorax persists and with mediastinal shift not significantly changed. Arnoldo Christensen MD Last Impressions Chest X-Ray 01/13/18 0400 Signed Impressions: Service Date/Time: Saturday, January 13, 2018 04:30 - CONCLUSION: 1. Loculated moderate size left pneumothorax with mediastinal shift. Left chest tube remains in place. 2. Diffuse bilateral airspace opacities persist. Arnoldo Christensen MD Last Impressions Chest X-Ray 01/12/18 0400 Signed Impressions: Service Date/Time: December 05:18 - CONCLUSION: 1. Mild interval improvement in left pneumothorax. Mediastinal shift to the right remains. 2. Diffuse airspace disease remains right greater than left. Saleem Mejia MD Procedures Chest tube placement Endotracheal tube placement Objective Remarks General - middle age gentleman, awake, alert, in no distress HEENT - pupils equal, reactive, sclerae anicteric, neck supple, neck veins nondistended, moist mucous membranes CV - regular heart sounds, no murmurs, rubs or gallops Chest -scattered coarse breath sounds bilateral, improved air entry over the left thorax, no wheezes, left-sided pigtail catheter in place, no air leak today. Abdomen - soft, non-tender, not distended, BS present Extremities - no edema, + peripheral pulses Neuro - awake alert and oriented 3, moves all extremities A/P Problem List: (1) Migraine headache ICD Code: G43.909 - Migraine, unspecified, not intractable, without status migrainosus Status: Chronic (2) Spontaneous pneumothorax ICD Code: J93.83 - Other pneumothorax Status: Acute (3) Recurrent spontaneous pneumothorax ICD Code: J93.83 - Other pneumothorax Status: Acute (4) COPD exacerbation ICD Code: J44.1 - Chronic obstructive pulmonary disease with (acute) exacerbation Status: Acute (5) Pulmonary fibrosis ICD Code: J84.10 - Pulmonary fibrosis, unspecified Status: Chronic Assessment and Plan 1. Acute hypoxic respiratory failure - requiring intubation and mechanical ventilation, now extubated, though hypoxemia persists. 2. 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 COPD, chronic bronchitis with bronchiectasis 4. Pulmonary fibrosis 5. HTN 1. Wean high flow nasal cannula as tolerated. goal spo2 > 88%. 2. Bronchodilators 3. Continue chest tube to suction at -40 4. Daily chest x-ray 5. s/p full course augmentin. 6. pulm restarted methylprednisolone yesterday (transitioned from oral pred) 7. On antihypertensives with amlodipine and metoprolol 8. Artificial tears as needed 9. low-dose Xanax as needed for anxiety -discussed with the patient and he agrees 10. GI/DVT prophylaxis 11. Have discussed extensively with patient, Dr. Coy and . patient still not a candidate for CT surgery here due to friable tissue. most likely would benefit from permanent valve, but more-over, needs work-up for transplant, as his lung disease is fairly rapidly progressive. no bed available at [facility] yesterday. will continue to look for transplant centers with the ability to work the patient up for transplant. Problem Qualifiers (1) Migraine headache: Qualified Codes: G43.009 - Migraine without aura, not intractable, without status migrainosus Hernan Serna MD Jan 17, 2018 13:12
--- NOTE | 2018-01-17 19:16 | HHI.PR ---
Subjective Remarks Was sent to ICU for Resp failure . New chest tube on left Now on O2 N/C 4 L. CXR shows a Stable left Pneumothorax. Feels SOB. Objective Vital Signs Date Time Temp Pulse Resp B/P (MAP) Pulse Ox O2 Delivery O2 Flow Rate FiO2 01/17/18 18:00 85 01/17/18 16:00 91 01/17/18 16:00 98.0 91 28 139/81 (100) 100 01/17/18 14:00 80 01/17/18 12:00 80 01/17/18 12:00 98.0 80 16 113/70 (84) 100 01/17/18 11:26 97 Nasal Cannula 4.00 01/17/18 11:23 100 Nasal Cannula 4.00 01/17/18 10:00 83 01/17/18 08:00 100 Nasal Cannula 6.00 01/17/18 08:00 98.2 87 20 118/85 (96) 100 01/17/18 08:00 87 01/17/18 07:49 94 Nasal Cannula 6.00 01/17/18 07:00 100 Partial Non-Rebreather 12.00 01/17/18 06:00 84 01/17/18 04:00 98.0 92 21 119/87 (98) 100 01/17/18 02:00 98 01/17/18 00:27 100 Partial Non-Rebreather 12.00 01/17/18 00:00 86 01/17/18 00:00 97.9 86 13 111/81 (91) 98 01/16/18 22:00 96 01/16/18 20:00 97.8 104 22 109/86 (94) 95 01/16/18 19:47 96 Non-Rebreather 15.00 01/16/18 19:21 17 I/O 01/16/18 01/16/18 01/16/18 01/17/18 01/17/18 01/17/18 07:00 15:00 23:00 07:00 15:00 23:00 Intake Total 460 ml 420 ml 1080 ml 960 ml Output Total 750 ml 600 ml 616 ml 625 ml Balance -290 ml -180 ml 464 ml 335 ml Intake Oral 460 ml 420 ml 1080 ml 960 ml Output Urine Total 750 ml 600 ml 600 ml 625 ml Chest Tube Drainage Total 0 ml Drainage Total 0 ml 16 ml 0 ml # Bowel Movements 0 0 0 0 Result Diagram: 01/16/1843601/16/18436 Objective Remarks GENERAL: This is a well-built middle-aged man who is awake and on O2. No pallor or icterus, or edema. HEAD, EYES, EARS, NOSE, THROAT: Head normocephalic. The pupils are reactive and equal. T Throat clear. NECK: The neck is supple. No venous distention. CHEST: Decreased breath sounds over the left mid and upper chest with crackles at the lung bases.Chest Tube is in left chest. HEART: Heart sounds are regular. S1 and S2. No murmur. No S3. ABDOMEN: Abdomen soft and without masses. No organomegaly or tenderness. The bowel sounds are active. EXTREMITIES: No lesions. No edema. NEUROLOGIC: Reflexes are 1 +. SKIN: No lesions. Assessment and Plan Assessment and Plan IMPRESSION: 1. Recurrent left pneumothorax with hypoxemia. 2. COPD and chronic bronchitis with bronchiectasis. 3. Basilar pulmonary fibrosis. 4. Hypertension. 5. Respiratory failure Plan : 1. Cont Chest tube to suction 2. Wean O2 to 4 L 3. No sedation 4. Duonebs qid. 5. Up in room as tolerated 6. IS at bedside q3h 7. Pain control with [place] PRN 8. CBC in am 9. Will Ask [facility] if they will Accept him for Endobronchial valve or Transplant Prerna Santos MD Jan 17, 2018 19:16
[2018-01-17] MEDS: BUDESONIDE-FORMOTEROL 160/4.5 MCG INHALER INH SCH (20:28)
[2018-01-17] MEDS: REMOVE OLD LIDOCAINE PATCH T-DERMAL SCH (22:00)
[2018-01-17] MEDS: RESP: ALBUTEROL 2.5 MG/3 ML NEB (PRN) NEB (23:49)
[2018-01-18] VITALS (14 sets, daily range): BP systolic 100–140; BP diastolic 64–97; PULSE 74–99; RESP 19–26; TEMP 97.9–99.5; O2SAT 93–100
[2018-01-18] MEDS: guaiFENesin/CODEINE SYRUP 200 MG/20 MG/10 ML CUP PO PRN ×4 (00:31→20:05)
[2018-01-18] MEDS: RESP: ALBUTEROL 2.5 MG/IPRATROPIUM 0.5 MG NEB (SCH) INH ×4 (03:31→21:53)
[2018-01-18] MEDS: methylPREDNISolone SOD SUCC 40 MG/1 ML VIAL IV PUSH SCH ×4 (05:17→23:19)
--- NOTE | 2018-01-18 06:25 | RADRPT ---
EXAM DATE/TIME: 01/18/2018 05:03 [place] COMPARISON: CHEST SINGLE AP, January 16, 2018, 4:49. INDICATIONS : Shortness of breath. MEDICAL HISTORY : Pneumothorax SURGICAL HISTORY : Chest tube ENCOUNTER: Subsequent ACUITY: 1 month PAIN SCORE: 5/10 LOCATION: Bilateral chest FINDINGS: Stable inferior left chest tube. Persistent loculated left pneumothoraces in the apex and left inferi or hemithorax. Diffuse interstitial and patchy bilateral airspace disease. Persistent mediastinal simona ft to the right. Cardiomediastinal contours are stable. Remainder of exam is unchanged. CONCLUSION: 1. Stable left-sided chest tube with persistent loculated left pneumothoraces and mediastinal shift t o the right. 2. Stable interstitial and patchy airspace disease, right > left. 3. No significant interval change. Zac Cabrera MD on January 18, 2018 at 6:22 Board Certified Radiologist. This report was verified electronically.
--- NOTE | 2018-01-18 07:24 | HHI.CCPN ---
Subjective Remarks/Hospital Course 47-year-old male with a past medical history significant for pulmonary fibrosis , COPD and hypertension and VATS/bleb resection/pleurodesis by Dr. Amanda on 08/23 is admitted to hospital with increased shortness of breath. Chart documentation for the past 24 hours prior to admission he has had significant fever/chills and increasing shortness of breath. Patient was found to have a left-sided pneumothorax on chest x-ray. The chest tube was placed and patient was admitted to medicine with pulmonary consultation in place. Today shortly after midnight the chest tube was found at the patient's bedside the dislodged, patient was in severe respiratory distress, diaphoretic and hypoxemic. The stat x-ray showed reaccumulation of left-sided pneumothorax and emergent chest tube was placed. 12/30 - resting in bed on 6 nasal cannula. Complaining of sore throat. Cough. Pneumothorax last left-sided similar size in reviewing chest x-ray this AM. Discussed with Dr. Blunt and patient 12/31: Resting in bed on nasal cannula. 6 L. Sore throat better controlled with Chloraseptic [place]. Small left sided pneumothorax similar in size from yesterday. Maintaining positive attitude. 01/01: no change. still quite dyspneic. on 6L and intermittently NRB. no new complaints. 01/02: Intermittent requiring nasal cannula versus nonrebreather mask. Remain short of breath. Small air leak persists. -40 cm H2O 01/03: Currently on nasal cannula 6 L. Appears depressed. Small air leak persists 1-2 chambers. -40 cm H2O. 01/04: Remains on nasal cannula 6 L. Switch is off and on between nonrebreather nasal cannula. Air leak persists. Pulmonology is okay with transfer to floor. 01/11: Per report, pigtail catheter placed earlier during hospitalization came out last night. Earlier this AM, patient with worsening respiratory distress, requiring NRM, with PO2 in the 50's. Stat CXR showing left sided pneumothorax. After discussing with patient, he was intubated and simultaneously had a left sided pigtail catheter placed. Currently, mechanically ventilated, Pip mid 20's synchronized with the vent. Chest tube at -40 with air leak. 01/12: No events over the night. Patient doing better, shortness of breath significantly improved, complaining of some chest pain over the chest tube site. Eyes feel better, no visual disturbances, no double vision, very happy with artificial tears. Better spirits. Left-sided chest tube with continuous air leak on suction at -40. He remains on high flow nasal cannula at 0.4 FiO2 and 35 L/min, with O2 sat of 100%. Morning chest x-ray reviewed, mild improvement in left-sided pneumothorax, unchanged infiltrates bilateral worse on the right. 01/13: Patient was weaned off to 6 L nasal cannula last evening over the night he required to be placed back on high flow due to desaturation to mid 80s. This morning he continues to require high flow nasal cannula flow increased from 25-35 L/min due to low O2 sat currently at 40% with sats in the 90s. Otherwise he feels a little better still complaining of some left-sided chest pain due to chest tube shortness of breath unchanged, eye discomfort significantly improved. Chest tube on suction at -40 with continuous air leak. T-max 99.2. 01/14: No events overnight. Patient still requiring high flow nasal cannula at 20 L/min and FiO2 of 0.4 with O2 sats in the mid 90s. Continuous continuous air leak on suction at -40 from a left-sided chest tube. Patient feels better, shortness of breath slightly improved, coughing, bringing up yellow-green sputum. No other complaints, good spirits. T-max 99.7. Morning chest x-ray reviewed, left-sided loculated pneumothorax unchanged. Still with persistent bilateral infiltrates, right worse than left. 01/15: No events overnight. Patient on high flow nasal cannula 20 L/min FiO2 of 0.3, tapering it down. Still some left-sided chest pain on the pigtail catheter. No other complaints. Morning chest x-ray reviewed, left-sided loculated pneumothorax is unchanged as well as persistent bilateral infiltrates. Chest tube to suction at -40 with continuous air leak. 01/16: no changes. remains on high flow NC. no improvements. chest tube to suction. 01/17: down to 6L o2 by NC today. no air leak on CT. still complaints of stable dyspnea. 01/18: No air leak but lung remains incompletely expanded left side. Will need to check tube for plug or replace. Objective Vital Signs Date Time Temp Pulse Resp B/P (MAP) Pulse Ox O2 Delivery O2 Flow Rate FiO2 01/18/18 06:00 90 01/18/18 04:00 98.1 24 140/87 (104) 100 01/18/18 03:45 Nasal Cannula 2.00 01/16/18 00:48 30 Intake and Output 01/18/18 01/18/18 01/19/18 08:00 16:00 00:00 Intake Total 1000 ml Output Total 1750 ml Balance -750 ml Result Diagram: 01/16/187 01/16/18 0437 Imaging Last 24 hours Impressions Chest X-Ray 01/15/18 0600 Signed Impressions: Service Date/Time: Monday, January 15, 2018 04:03 - CONCLUSION: No change right greater than left pulmonary opacities and moderate sized loculated left pneumothorax with mediastinal shift. Arnoldo Christensen MD Last Impressions Chest X-Ray 01/14/18399 Signed Impressions: Service Date/Time: Sunday, January 14, 2018 04:39 - CONCLUSION: Moderate-sized loculated left pneumothorax persists and with mediastinal shift not significantly changed. Arnoldo Christensen MD Last Impressions Chest X-Ray 01/13/18399 Signed Impressions: Service Date/Time: Saturday, January 13, 2018 04:30 - CONCLUSION: 1. Loculated moderate size left pneumothorax with mediastinal shift. Left chest tube remains in place. 2. Diffuse bilateral airspace opacities persist. Arnoldo Christensen MD Last Impressions Chest X-Ray 01/12/18399 Signed Impressions: Service Date/Time: December 05:18 - CONCLUSION: 1. Mild interval improvement in left pneumothorax. Mediastinal shift to the right remains. 2. Diffuse airspace disease remains right greater than left. Saleem Mejia MD Procedures Chest tube placement Endotracheal tube placement Objective Remarks General - middle age gentleman, awake, alert, in no distress HEENT - pupils equal, reactive, sclerae anicteric, neck supple, moist mucous membranes CV - regular heart sounds, no murmurs, rubs or gallops, no JVD. Chest -scattered coarse breath sounds bilateral, decreased sounds left side, no wheezes, left-sided pigtail catheter in place, no air leak today, suspect it is plugged.. Abdomen - soft, non-tender, not distended, BS present. no guarding. Extremities - no edema, + peripheral pulses Neuro - awake alert and oriented 3, moves all extremities A/P Problem List: (1) Migraine headache ICD Code: G43.909 - Migraine, unspecified, not intractable, without status migrainosus Status: Chronic (2) Spontaneous pneumothorax ICD Code: J93.83 - Other pneumothorax Status: Acute (3) Recurrent spontaneous pneumothorax ICD Code: J93.83 - Other pneumothorax Status: Acute (4) COPD exacerbation ICD Code: J44.1 - Chronic obstructive pulmonary disease with (acute) exacerbation Status: Acute (5) Pulmonary fibrosis ICD Code: J84.10 - Pulmonary fibrosis, unspecified Status: Chronic Assessment and Plan 1. Acute hypoxic respiratory failure - requiring intubation and mechanical ventilation, now extubated, though hypoxemia persists. 2. 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 COPD, chronic bronchitis with bronchiectasis 4. Pulmonary fibrosis 5. HTN 1. Wean high flow nasal cannula as tolerated. goal spo2 > 88%. 2. Bronchodilators 3. Continue chest tube to suction at -40 4. Daily chest x-ray 5. s/p full course augmentin. 6. pulm restarted methylprednisolone yesterday (transitioned from oral pred) 7. On antihypertensives with amlodipine and metoprolol 8. Artificial tears as needed 9. low-dose Xanax as needed for anxiety -discussed with the patient and he agrees 10. GI/DVT prophylaxis 11. Have discussed extensively with patient, Dr. Coy and . patient still not a candidate for CT surgery here due to friable tissue. most likely would benefit from permanent valve, but more-over, needs work-up for transplant, as his lung disease is fairly rapidly progressive. no bed available at [facility] yesterday. will continue to look for transplant centers with the ability to work the patient up for transplant. 12. Unplug chest tube. Problem Qualifiers (1) Migraine headache: Qualified Codes: G43.009 - Migraine without aura, not intractable, without status migrainosus Neal Brennan MD Jan 18, 2018 07:24
[2018-01-18] MEDS: CHLORHEXIDINE 0.12% (ORAL KIT) 15 ML CUP MT SCH ×2 (08:00→20:00)
[2018-01-18] MEDS: FAMOTIDINE 20 MG/2 ML VIAL IV PUSH SCH ×2 (08:19→20:05)
[2018-01-18] MEDS: METOPROLOL TARTRATE 25 MG TAB PO SCH ×2 (08:19→20:05)
[2018-01-18] MEDS: DOCUSATE SODIUM 50 MG/SENNA 8.6 MG TAB PO SCH ×2 (08:19→20:07)
[2018-01-18] MEDS: SODIUM CHLORIDE 0.9% FLUSH 10 ML FLUSH IV FLUSH SCH ×2 (08:19→20:05)
[2018-01-18] MEDS: guaiFENesin E.R. 600 MG TAB PO SCH ×2 (08:20→20:08)
[2018-01-18] MEDS: LIDOCAINE HCL 5% PATCH T-DERMAL SCH (08:20)
[2018-01-18] MEDS: ENOXAPARIN SODIUM 40 MG/0.4 ML SYRINGE SQ SCH (08:20)
[2018-01-18] MEDS: HYDROmorphone HCL PF 2 MG/ML VIAL IV PUSH PRN ×4 (08:20→23:20)
[2018-01-18] MEDS: TIOTROPIUM BROMIDE 18 MCG INH INH SCH (09:00)
[2018-01-18] MEDS: BUDESONIDE-FORMOTEROL 160/4.5 MCG INHALER INH SCH ×2 (09:00→20:04)
[2018-01-18] MEDS ORDERED: LORazepam 2 MG/ML VIAL ONE (10:46)
[2018-01-18] MEDS ORDERED: fentaNYL CITRATE 250 MCG/5 ML AMP ONE (10:46)
--- NOTE | 2018-01-18 11:40 | PD.CONS ---
Consult Service Palliative Care Consult Requested By Dr. Serna . Primary Care Physician No Primary Care Physician Reason for Consultation a. To assist with evaluation and management of symptoms including: Dyspnea, weakness b. To assist medical decision maker(s) with: better understanding of current medical conditions; weighing benefits/burdens of medical treatment options; making medical treatment decisions. HPI History of Present Illness This is a 47-year-old male with a history of pulmonary fibrosis, COPD, recurrent pneumothorax status post left VATS exploration with bleb resection and pleurodesis on August 23, 2017. He was seen in [facility] around July 2017 for pneumothorax and received a chest tube. He was then admitted back to [facility] August 19, 2017 for a recurrent spontaneous pneumothorax. After undergoing bleb resection and pleurodesis August 23, he presented back to the emergency room September 12 with a recurrent spontaneous pneumothorax. He was seen again in November on the and the both visits for bilateral pneumonia. He was discharged home 12/18 and presented back to the emergency room on 12/25 and required placement of the chest tube for spontaneous pneumothorax. Cardiothoracic surgery was consulted and states that he is not a good surgical candidate due to his severe COPD and friability of lung tissue. Pathology of previous bleb resection showed respiratory bronchiolitis, interstitial lung disease, chronic bronchiolitis and pneumonitis with extensive fibrosis, bullous emphysema and acute pleuritis. On 12/29 the patient was found in bed with chest tube dislodged, in severe respiratory distress and intensive care medicine was consult. Emergent chest tube was reinserted. He continued to require increasing levels of oxygen and chest x- ray showed bilateral consolidation concerning for diffuse pneumonitis. On 01/11 the chest tube again became dislodged and the patient developed worsening respiratory distress. Stat chest x-ray showed a left-sided tension pneumothorax with mediastinal shift and patient required endotracheal intubation briefly but was successfully extubated later that same day to high flow nasal cannula. He remains on 6L nasal cannula. The chest tube is still intact to suction at -40 but the left lung is incompletely expanded. Workup is in progress by [facility] to evaluate for placement of an endobronchial valve or lung transplant. Workup for alpha-1 antitrypsin deficiency was negative. . Function/Cognitive Trajectory In the last 6 months he has been seen 5 times [facility] emergency room and had previously been seen at [facility] emergency room. All admissions were related to pulmonary function. He continued to have spontaneous pneumothorax after VATS with bleb resection and pleurodesis. In spite of continued chest tube placement to high suction, the pneumothorax has not yet resolved. Recurrent hospitalizations have contributed to a progressive debility. Physical therapy was interrupted on 01/11 when patient was transferred back to intensive care on a ventilator. He will require a new order to resume physical therapy. . Review of Systems ROS Limitations: Clinical Condition Constitutional: COMPLAINS OF: Fatigue, Generalized weakness Endocrine: DENIES: Heat/cold intolerance, Polydipsia, Polyuria, Polyphagia Eyes: DENIES: Blurred vision, Diplopia, Eye inflammation, Eye pain, Vision loss , Photosensitivity, Double Vision, Blind spots Ears, nose, mouth, throat: DENIES: Tinnitus, Hearing loss, Vertigo, Nasal discharge, Oral lesions, Throat pain, Hoarseness, Ear Pain, Running Nose, Epistaxis, Sinus Pain, Toothache, Odynophagia Respiratory: COMPLAINS OF: Shortness of breath Cardiovascular: COMPLAINS OF: Chest pain Gastrointestinal: DENIES: Abdominal pain, Black stools, Bloody stools, Constipation, Diarrhea, Nausea, Vomiting, Difficulty Swallowing, Anorexia, Dyspepsia or heartburn, Excessive gas, Bloating, Vomiting blood Genitourinary: DENIES: Sexual dysfunction, Urinary frequency, Urinary incontinence, Urgency, Hematuria, Dysuria, Nocturia, Penile Discharge, Testicular Pain, Testicular Swelling, Hesitancy, Dribbling, Decreased stream Musculoskeletal: DENIES: Joint pain, Muscle aches, Stiffness, Joint Swelling, Back pain, Neck pain, Decreased range of motion Integumentary: DENIES: Abnormal pigmentation, Nail changes, Pruritus, Rash, Nodules, Tumors, Excessive dryness, Non-healing sores Hematologic/Lymphatics: DENIES: Bruising, Lymphadenopathy, Prolonged bleed w/ proced, History of transfusions Neurologic: DENIES: Abnormal gait, Headache, Localized weakness, Paresthesias, Seizures, Speech Problems, Tremor, Poor Balance, Change in smell or taste Psychiatric: COMPLAINS OF: Anxiety Past Family Social History Coded Allergies: No Known Allergies (Verified Allergy, Unknown, 12/12/17) Past Medical History Hypertension Pulmonary fibrosis COPD History of recurrent pneumothorax Migraine Bronchiectasis Pulmonitis Pneumonia . Past Surgical History VATS/bleb resection/pleurodesis by Dr. Amanda on 08/23/14 Multiple chest tube placements . Reported Medications Reported Meds & Active Scripts Active Prednisone 10 Mg Tab 10 Mg PO DAILY TAKE THREE TABLETS BY MOUTH DAILY FOR 3 DAYS THEN TAKE TWO TABLETS BY MOUTH DAILY FOR 3 DAYS THEN TAKE ONE TABLET DAILY UNTIL SEEN BY CLINICAL CARE MANAGER IN 5 DAYS. [guaiFENesin ER] 600 MG Tabcr 600 Mg PO BID [Budeson-Formot 160-4.5 Mcg Inh] 60 PUFF Aero 2 Puff INH Q12HR Oxycodone-Acetaminophen 5-325 (Oxycodone HCl/Acetaminophen) 5 Mg-325 Mg Tablet 1 Tab PO Q4H PRN DO NOT USE THIS MEDICINE IF YOU WILL DRIVE A CAR OR USE A MACHINE, ONLY USE IT WHEN RESTING AT HOME. Norvasc (Amlodipine Besylate) 10 Mg Tab 10 Mg PO DAILY Ventolin Hfa 18 GM Inh (Albuterol Sulfate) 90 Mcg/Act Aer 2 Puff INH Q4-6H PRN Metoprolol Tartrate 25 Mg Tab 25 Mg PO Q12HR Spiriva Handihaler (Tiotropium Inh) 18 Mcg Cap 18 Mcg INH DAILY 1 capsule = 18 mcg Current Medications Medications (Trade) Dose Ordered Sig/Susanna Route Start Time Stop Time Status Last Admin (NS Flush) 2 ml UNSCH PRN IV FLUSH 12/25/17 05:30 01/17/18 20:29 (NS Flush) 2 ml BID IV FLUSH 12/25/17 09:00 01/18/18 08:19 (Tylenol) 650 mg Q4H PRN PO 12/25/17 05:30 (Norvasc) 10 mg DAILY PO 12/25/17 09:00 01/18/18 08:19 (Lopressor) 25 mg Q12HR PO 12/25/17 09:00 01/18/18 08:19 (Spiriva Inh) 18 mcg DAILY INH 12/25/17 09:00 01/17/18 09:00 (Symbicort 160-4.5 Mcg Inh) 2 puff Q12HR INH 12/25/17 09:00 01/18/18 09:00 (Mucinex Er) 600 mg BID PO 12/25/17 09:00 01/17/18 08:07 (Mimi-Colace) 1 tab BID PO 12/25/17 21:00 01/18/18 08:19 (Roxicodone) 5 mg Q4H PRN PO 12/25/17 14:30 01/16/18 17:45 (Roxicodone) 10 mg Q4H PRN PO 12/25/17 14:30 01/17/18 23:52 (Robitussin Ac 200-20 Mg/10 ml Liq) 10 ml Q4H PRN PO 12/27/17 14:45 01/18/18 08:19 (Albuterol Neb) 2.5 mg Q2HR NEB PRN NEB 12/29/17 11:00 01/17/18 23:49 (Dilaudid Pf Inj) 1 mg Q2H PRN IV PUSH 12/29/17 11:45 01/18/18 08:20 Miscellaneous Information 1 HS T-DERMAL 12/29/17 21:00 01/17/18 22:00 (Cepacol Extra Audrey (Sugar Free)) 1 lozenge Q2HR PRN BUCCAL 12/30/17 09:45 01/13/18 14:08 (Chloraseptic Como) 2 spray Q2H PRN OROPHARYNG 12/30/17 09:45 01/14/18 23:00 (Lovenox Inj) 40 mg Q24H SQ 01/03/18 09:00 01/18/18 08:20 (Lidoderm 5% Patch.12 Hr) 1 patch DAILY T-DERMAL 01/03/18 09:00 01/18/18 08:20 (Robitussin La Pediatric Cough Liq) 15 mg Q6H PRN PO 01/06/18 15:45 01/11/18 22:58 (Phenergan Liq) 6.25 mg Q6H PRN PO 01/06/18 15:45 (Milk Of Magnesia Liq) 30 ml Q12H PRN PO 01/09/18 11:45 (Senokot) 17.2 mg Q12H PRN PO 01/09/18 11:45 (Dulcolax Supp) 10 mg DAILY PRN RECTAL 01/09/18 11:45 (Lactulose Liq) 30 ml DAILY PRN PO 01/09/18 11:45 (Pepcid Inj) 20 mg Q12H IV PUSH 01/11/18 09:00 01/18/18 08:19 (Peridex 0.12% Liq) 15 ml BID@08,20 MT 01/11/18 20:00 01/18/18 08:00 (Marquette Audrey) 1 lozenge UNSCH PRN BUCCAL 01/12/18 08:00 (Tears Naturale Opth Soln) 1 drop Q4H PRN EACH EYE 01/15/18 18:00 (Xanax) 0.25 mg Q8H PRN PO 01/15/18 11:15 01/17/18 23:53 (SoluMEDROL INJ) 40 mg Q6HR IV PUSH 01/15/18 12:15 01/18/18 05:17 (Duoneb Neb) 1 ampule Q6HR NEB INH 01/16/18 22:00 01/18/18 08:54 Family History Denies family history of coronary artery disease/diabetes mellitus Substance Use Tobacco: Smoked less than a pack a week 20 years. Quit 6 months ago. Alcohol: Social use. Prescription med abuse: No history. Illicits: No history. . Psychosocial History He was born in [place] and finished high school there. 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 He was once and after 2 children. He has 1 son and 1 daughter. He was not in the . . Spiritual/Cultural Factors He was raised in the [employer] ch[place] but is not practicing. . Living Will: Never completed Health Care Surrogate: Never completed Durable Power of Lemon Grower: Never completed Physical Exam Vital Signs Date Time Temp Pulse Resp B/P (MAP) Pulse Ox O2 Delivery O2 Flow Rate FiO2 01/18/18 10:00 85 01/18/18 08:55 93 Nasal Cannula 2.00 01/18/18 08:00 92 01/18/18 08:00 99.5 92 24 134/91 (105) 97 01/18/18 07:00 97 Nasal Cannula 2.00 01/18/18 06:00 90 01/18/18 04:00 99 01/18/18 04:00 98.1 99 24 140/87 (104) 100 01/18/18 03:45 100 Nasal Cannula 2.00 01/18/18 02:00 80 01/18/18 00:00 98.4 95 25 130/81 (97) 100 01/18/18 00:00 95 01/17/18 22:00 92 01/17/18 21:19 96 Nasal Cannula 4.00 01/17/18 20:00 98.1 86 22 130/81 (97) 94 01/17/18 20:00 86 01/17/18 19:00 94 Nasal Cannula 4.00 01/17/18 18:00 85 01/17/18 16:00 91 01/17/18 16:00 98.0 91 28 139/81 (100) 100 01/17/18 14:00 80 01/17/18 12:00 80 01/17/18 12:00 98.0 80 16 113/70 (84) 100 01/17/18 11:26 97 Nasal Cannula 4.00 01/17/18 11:23 100 Nasal Cannula 4.00 Exam CONSTITUTIONAL/GENERAL: This is an adequately nourished patient, lethargic, sedated during chest tube insertion, not arousing to tactile or verbal stimuli. TUBES/LINES/DRAINS: Left chest tube, PIV right hand SKIN: No jaundice, rashes, or lesions. No wounds seen anteriorly. Skin temperature appropriate. Not diaphoretic. HEAD: Atraumatic. Normocephalic. EYES: Pupils equal and round and reactive. Extraocular motions intact. No scleral icterus. No injection or drainage. Fundi not examined. ENT: Nose without bleeding or purulent drainage. NECK: Trachea midline. Supple. No palpable thyroid enlargement or nodularity. CARDIOVASCULAR: Regular rate and rhythm without murmurs, gallops, or rubs. No JVD. Peripheral pulses symmetric. RESPIRATORY/CHEST: Lungs diminished left greater than right, scattered wheezes. GASTROINTESTINAL: Abdomen soft, nondistended. No hepato-splenomegaly, or palpable masses. No guarding. Bowel sounds present. GENITOURINARY: Without palpable bladder distension. MUSCULOSKELETAL: Extremities without clubbing, cyanosis, or edema. No joint tenderness or effusion noted. No calf tenderness. No mottling or clubbing. NEUROLOGICAL: Sedated postprocedure, briefly arouses to aggressive stimuli but doses off. PSYCHIATRIC: Lethargic . Diagnostic Tests Laboratory Laboratory Tests Test 01/16/18 04:37 White Blood Count 6.3 TH/MM3 (4.0-11.0) Red Blood Count 4.68 MIL/MM3 (4.50-5.90) Hemoglobin 13.4 GM/DL (13.0-17.0) Hematocrit 38.8 % (39.0-51.0) Mean Corpuscular Volume 82.9 FL (80.0-100.0) Mean Corpuscular Hemoglobin 28.5 PG (27.0-34.0) Mean Corpuscular Hemoglobin Concent 34.4 % (32.0-36.0) Red Cell Distribution Width 14.0 % (11.6-17.2) Platelet Count 324 TH/MM3 (150-450) Mean Platelet Volume 7.5 FL (7.0-11.0) Blood Urea Nitrogen 13 MG/DL (7-18) Creatinine 0.67 MG/DL (0.60-1.30) Random Glucose 107 MG/DL (74-106) Calcium Level 9.4 MG/DL (8.5-10.1) Sodium Level 133 MEQ/L (136-145) Potassium Level 4.1 MEQ/L (3.5-5.1) Chloride Level 97 MEQ/L (98-107) Carbon Dioxide Level 27.3 MEQ/L (21.0-32.0) Anion Gap 9 MEQ/L (5-15) Estimat Glomerular Filtration Rate 153 ML/MIN (>89) . Result Diagram: 01/16/187 01/16/18 0437 Microbiology Microbiology Date/Time Source Procedure Growth Status 12/29/17 18:21 Blood Peripheral Aerobic Blood Culture - Final NO GROWTH IN 5 DAYS Complete 12/29/17 18:21 Blood Peripheral Anaerobic Blood Culture - Final NO GROWTH IN 5 DAYS Complete 01/14/18 18:00 Sputum Expectorated Sputum Gram Stain - Final Complete 01/14/18 18:00 Sputum Expectorated Sputum Sputum Culture - Final HEAVY GROWTH NORMAL RESPIRATORY MAKSIM Complete 12/29/17 17:00 Urine Catheterized Urine Legionella Antigen - Final PRESUMPTIVE NEGATIVE FOR LEGIONELLA P... Complete 12/29/17 17:00 Urine Catheterized Urine Streptococcus pneumoniae Antigen (M - Final PRESUMPTIVE NEGATIVE FOR STREPTOCOCCU... Complete . Imaging Last Impressions Chest X-Ray 01/18/18 0600 Signed Impressions: Service Date/Time: Thursday, January 18, 2018 05:03 - CONCLUSION: 1. Stable left-sided chest tube with persistent loculated left pneumothoraces and mediastinal shift to the right. 2. Stable interstitial and patchy airspace disease, right > left. 3. No significant interval change. Zac Cabrera MD . Procedures 01/11: Left pigtail chest tube placement. 01/11: Endotracheal intubation 01/18: Replacement of left pigtail chest tube . Patient/Family Conference Issues Discussed: * Palliative care role, purpose, approach * Additional medical, psychosocial, and spiritual history * Patients general health, functional status, and cognitive changes in the months leading up to the current hospitalization * Patient/family understanding of the current medical problems * Patient/family understanding of prognosis * Patients goals of care as best understood from advance directives and/or conversations and/or values * Current medical treatment options and benefits/burdens of those options * Likely scenarios comparing ongoing aggressive care with a transition to comfort measures only * Questions answered to the best of my ability * Palliative care contact information provided Assessment and Plan Disease Oriented Problem List: (1) HTN (hypertension) (2) Recurrent spontaneous pneumothorax (3) Pulmonary fibrosis (4) COPD (chronic obstructive pulmonary disease) Symptom Scale: (1) Dyspnea and respiratory abnormalities 0-10 Scale: 5 (2) Weakness 0-10 Scale: 5 Pertinent Non-Medical Issues Psychosocial:He was born in [place] and finished high school there. 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 He was once and after 2 children. He has 1 son and 1 daughter. He was not in the . Spiritual: He was raised as a Jehovah witness but is nonpracticing. Legal: No legal issues noted. Ethical issues impacting care: No ethical issues impacting care. . Important Contacts Sister: Blanca Rodney [phone] Mother: Precious Echeverria Aunt: Lilia Nicole: Son: Robin Dos Santos (estranged) Daughter: Karma Dos Santos Prognosis His prognosis is guarded. He is having recurrent pneumothoraces and has failed bleb resection and decortication. He has severe pulmonary fibrosis as well as COPD, pneumonitis and bronchiectasis. He is pending evaluation by [facility] for valve versus transplant. He is at high risk for further complications and decline. . Code Status: Full Code Plan PLAN: Legal decision maker: Patient is still sedated postprocedure, but my medical record review and providers report he is alert, oriented and able to make his own decisions, when not sedated. Per [place] statutes, as he is and has 2 children it would be the majority of the adult children designated as decision-makers. His mother, sister and aunt are also available and willing to serve as decision-makers if necessary. Goals: Aggressive. CODE STATUS: FULL CODE SYMPTOMS: * Dyspnea - his dyspnea is improving with the reexpansion of his left lung, now that the chest tube has been repositioned. He is mildly tachypneic with a respiratory rate about 24. He remains on 2 L nasal cannula. Given the severity of his pulmonary fibrosis, recurrent spontaneous pneumothoraces and recent pneumonia he is at risk of continued dyspnea and recurrent respiratory compromise. * Weakness -he has been hospitalized a significant portion of the last 6 months resulting in debility. He has been too hypoxic to work with physical therapy and after his transfer to ICU on 01/11, physical therapy was suspended. As his chest tube is now reexpanding the lung, would recommend reordering physical therapy services. SUMMARY This is a 47-year-old male who has developed what appears to be idiopathic pulmonary fibrosis with recurrent spontaneous pneumothoraces, bronchiectasis and pulmonitis. He has had multiple chest tube placements and a left decortication and bleb resection. He has been declined by [facility] for transplant due to poor performance status and previous decortication, which makes him a poor candidate for transplant. There is some possibility that the lung will not seal due to the friability and degraded tissue from the fibrosis. He would also remain at very high risk for a recurrent pneumothorax due to the bullous nature of his lung tissue. He is likely to suffer further complications and declined. He is hospice appropriate if goals are consistent. Palliative care will continue to follow the patient during hospital course as condition evolves, to assist patient/decision-maker with understanding of their medical conditions, weighing benefits/burdens of treatment options, for clarification of goals of treatment. Additionally will assist with any symptoms of palliative concern. . Thank you for the opportunity to participate in the care of Mr. Price. Attestation To help prompt me to consider important information that might be impacting today's encounter and assessment, information from prior notes written by myself or my colleagues may have been "brought forward" into today's note. My signature on this note, however, is an attestation that I personally performed the exam, history, and/or decision-making noted today, and, unless otherwise indicated, the interactions with patient, family, and staff as well as the review of records all occurred today. I also attest that the listed assessment and stated plan reflect my best clinical judgment today based on the combination of historical information, prior notes, and today's exam/ interactions. When time spent is documented, it refers only to time spent today by the signer, or if indicated, combined time spent today by collaborating physician/nurse practitioner. . Jessica Cabrera Jan 18, 2018 11:40
--- NOTE | 2018-01-18 12:40 | RADRPT ---
EXAM DATE/TIME: 01/18/2018 00:00 [facility] COMPARISON: No previous studies available for comparison. INDICATIONS : Patient presents with malfunctioning chest tube in need of removal. PROCEDURE : Chest tube removal. Using aseptic technique the previously placed chest tube was easily removed in one piece and sterile dressing was applied. CONCLUSION: Uncomplicated chest tube removal. Arnoldo Gonzalez MD on January 18, 2018 at 12:38 Board Certified Radiologist. This report was verified electronically.
--- NOTE | 2018-01-18 13:33 | RADRPT ---
EXAM DATE/TIME: 01/18/2018 10:34 [facility] COMPARISON: No previous studies available for comparison. INDICATIONS : Patient with history of recurrent pneumothorax in need of chest tube placement and upsizing due to cu rrent chest tube malfunction. MEDICAL HISTORY : HTN Pulmonary fibrosis COPD History of recurrent pneumothorax SURGICAL HISTORY : VAT/bleb resection/pleurodesis Chest tube ENCOUNTER: Initial ACUITY: 4 - 6 days PAIN SCORE: 10/10 LOCATION: Left chest FLUORO TIME: 4.7 minutes IMAGE SERIES: 2 SEDATION TIME: 30 minutes MEDICATION(S): 1.) 250 mcg fentanyl (Sublimaze) IV 2.) 2 mg lorazepam (Ativan) IV DEVICE(S): 1.) 12 [place] non-locking catheter Jack PROCEDURE : 1. Fluoroscopically guided chest tube placement. 2. Conscious sedation with continuous EKG and oximetry monitoring. The risks, benefits and alternatives to the procedure were explained and verbal and written consent w as obtained. The site was prepped in sterile fashion. Full sterile technique was used, including ca p, mask, sterile gloves and gown and a large sterile sheet. Hand hygiene and 2% chlorhexidine and/or betadine/alcohol prep was utilized per protocol for cutaneous antisepsis. The skin and subcutaneous tissues were infiltrated with local anesthetic solution. With fluoroscopic guidance the lateral left chest was entered using an 18 gauge blunt needle. A stiff angled Glidewire was introduced to the pleural space and coiled into a loculated lateral pneumothora x. A 12 [place] nonlocking Jack pigtail thoracostomy tube was introduced. Wall suction was applied. Post procedure images demonstrate satisfactory position of the tube. The catheter was sutured in p lace sterile gauze dressing was applied. Conscious sedation was performed with the prescribed dosages and duration as above in the presence of an independent trained radiology nurse to assist in the monitoring of the patient. EKG and oximetry remained stable throughout the procedure. The patient tolerated the procedure well and there were n o complications. The patient was sent to post anesthesia recovery in stable condition. CONCLUSION: Uncomplicated chest tube placement as above. Arnoldo Gonzalez MD on January 18, 2018 at 13:30 Board Certified Radiologist. This report was verified electronically.
--- NOTE | 2018-01-18 17:30 | HHI.PR ---
Subjective Remarks Was sent to ICU for Resp failure . Had a New chest tube inserted on left Now on O2 N/C 3 L. CXR shows a Stable left loculated Pneumothorax. Objective Vital Signs Date Time Temp Pulse Resp B/P (MAP) Pulse Ox O2 Delivery O2 Flow Rate FiO2 01/18/18 16:00 98.5 89 19 113/74 (87) 100 01/18/18 16:00 89 01/18/18 14:00 84 01/18/18 12:00 84 01/18/18 12:00 98.9 87 24 100/64 (76) 100 01/18/18 10:00 85 01/18/18 08:55 93 Nasal Cannula 2.00 01/18/18 08:00 92 01/18/18 08:00 99.5 92 24 134/91 (105) 97 01/18/18 07:00 97 Nasal Cannula 2.00 01/18/18 06:00 90 01/18/18 04:00 99 01/18/18 04:00 98.1 99 24 140/87 (104) 100 01/18/18 03:45 100 Nasal Cannula 2.00 01/18/18 02:00 80 01/18/18 00:00 98.4 95 25 130/81 (97) 100 01/18/18 00:00 95 01/17/18 22:00 92 01/17/18 21:19 96 Nasal Cannula 4.00 01/17/18 20:00 98.1 86 22 130/81 (97) 94 01/17/18 20:00 86 01/17/18 19:00 94 Nasal Cannula 4.00 01/17/18 18:00 85 I/O 01/17/18 01/17/18 01/17/18 01/18/18 01/18/18 01/18/18 07:00 15:00 23:00 07:00 15:00 23:00 Intake Total 1080 ml 960 ml 1000 ml Output Total 616 ml 625 ml 1750 ml Balance 464 ml 335 ml -750 ml Intake Oral 1080 ml 960 ml 1000 ml Output Urine Total 600 ml 625 ml 1750 ml Drainage Total 16 ml 0 ml 0 ml # Bowel Movements 0 0 0 Result Diagram: 01/16/1843601/16/18436 Objective Remarks GENERAL: This is a well-built middle-aged man who is awake and on O2. No pallor or icterus, or edema. HEAD, EYES, EARS, NOSE, THROAT: Head normocephalic. The pupils are reactive and equal. T Throat clear. NECK: The neck is supple. No venous distention. CHEST: Decreased breath sounds over the left mid and upper chest with occ crackles at the lung bases.Chest Tube is in left chest. HEART: Heart sounds are regular. S1 and S2. No murmur. No S3. ABDOMEN: Abdomen soft and without masses. No organomegaly or tenderness. The bowel sounds are active. EXTREMITIES: No lesions. No edema. NEUROLOGIC: Reflexes are 1 +. SKIN: No lesions. Assessment and Plan Assessment and Plan IMPRESSION: 1. Recurrent left pneumothorax with hypoxemia. 2. COPD and chronic bronchitis with bronchiectasis. 3. Basilar pulmonary fibrosis. 4. Hypertension. 5. Respiratory failure Plan : 1. Cont Chest tube to wall suction 2. Wean O2 to 2 L 3. No sedation 4. Duonebs qid. 5. Up in room as tolerated 6. IS at bedside q3h 7. Pain control with Cache PRN 8. CXR in am 9. Dr Blunt to Evaluate Prerna Santos MD Jan 18, 2018 17:30
[2018-01-18] MEDS: ALPRAZolam 0.25 MG TAB PO PRN (20:06)
[2018-01-18] MEDS: REMOVE OLD LIDOCAINE PATCH T-DERMAL SCH (21:00)
[2018-01-19] VITALS (11 sets, daily range): BP systolic 121–137; BP diastolic 69–90; PULSE 66–100; RESP 18–26; TEMP 98.1–98.6; O2SAT 96–100
[2018-01-19] MEDS: guaiFENesin/CODEINE SYRUP 200 MG/20 MG/10 ML CUP PO PRN ×3 (02:55→17:57)
[2018-01-19] MEDS: HYDROmorphone HCL PF 2 MG/ML VIAL IV PUSH PRN ×4 (02:56→17:57)
[2018-01-19] MEDS: RESP: ALBUTEROL 2.5 MG/IPRATROPIUM 0.5 MG NEB (SCH) INH ×4 (03:22→21:27)
[2018-01-19] MEDS: BENZOCAINE-MENTHOL (SUGAR FREE) 15 MG-3.6 MG LOZENGE BUCCAL PRN ×2 (06:01→10:41)
[2018-01-19] MEDS: methylPREDNISolone SOD SUCC 40 MG/1 ML VIAL IV PUSH SCH ×4 (06:02→21:29)
[2018-01-19] MEDS: ALPRAZolam 0.25 MG TAB PO PRN ×2 (06:04→13:30)
--- NOTE | 2018-01-19 06:23 | RADRPT ---
EXAM DATE/TIME: 01/19/2018 05:26 [facility] COMPARISON: CHEST SINGLE AP, January 18, 2018, 5:03. CHEST TUBE PLACEMENT, LEFT, January 18, 2018, 10:[address]. [facility] EXPIRATION ONLY, September 16, 2017, 12:18. INDICATIONS : Shortness of breath. MEDICAL HISTORY : Pneumothorax. SURGICAL HISTORY : Chest tube. ENCOUNTER: Subsequent ACUITY: 1 month PAIN SCORE: 0/10 LOCATION: Bilateral chest FINDINGS: Interval upsizing of the left-sided chest tube with chest tube noted in the left mid to lower hemitho rax. Persistent loculated left-sided pneumothoraces with mediastinal shift to the right. Diffuse inte rstitial and patchy bilateral airspace disease. Cardiomediastinal contours are stable. Remainder of e xam is unchanged. CONCLUSION: 1. Interval upsizing of left-sided chest tube with persistent loculated left-sided pneumothoraces and mediastinal shift. 2. Stable interstitial and patchy airspace disease, right greater than left. Zac Cabrera MD on January 19, 2018 at 6:20 Board Certified Radiologist. This report was verified electronically.
[2018-01-19] MEDS: CHLORHEXIDINE 0.12% (ORAL KIT) 15 ML CUP MT SCH ×2 (08:00→20:00)
--- NOTE | 2018-01-19 08:29 | HHI.CCPN ---
Subjective Remarks/Hospital Course 47-year-old male with a past medical history significant for pulmonary fibrosis , COPD and hypertension and VATS/bleb resection/pleurodesis by Dr. Amanda on 08/23 is admitted to hospital with increased shortness of breath. Chart documentation for the past 24 hours prior to admission he has had significant fever/chills and increasing shortness of breath. Patient was found to have a left-sided pneumothorax on chest x-ray. The chest tube was placed and patient was admitted to medicine with pulmonary consultation in place. Today shortly after midnight the chest tube was found at the patient's bedside the dislodged, patient was in severe respiratory distress, diaphoretic and hypoxemic. The stat x-ray showed reaccumulation of left-sided pneumothorax and emergent chest tube was placed. 12/30 - resting in bed on 6 nasal cannula. Complaining of sore throat. Cough. Pneumothorax last left-sided similar size in reviewing chest x-ray this AM. Discussed with Dr. Blunt and patient 12/31: Resting in bed on nasal cannula. 6 L. Sore throat better controlled with Chloraseptic [place]. Small left sided pneumothorax similar in size from yesterday. Maintaining positive attitude. 01/01: no change. still quite dyspneic. on 6L and intermittently NRB. no new complaints. 01/02: Intermittent requiring nasal cannula versus nonrebreather mask. Remain short of breath. Small air leak persists. -40 cm H2O 01/03: Currently on nasal cannula 6 L. Appears depressed. Small air leak persists 1-2 chambers. -40 cm H2O. 01/04: Remains on nasal cannula 6 L. Switch is off and on between nonrebreather nasal cannula. Air leak persists. Pulmonology is okay with transfer to floor. 01/11: Per report, pigtail catheter placed earlier during hospitalization came out last night. Earlier this AM, patient with worsening respiratory distress, requiring NRM, with PO2 in the 50's. Stat CXR showing left sided pneumothorax. After discussing with patient, he was intubated and simultaneously had a left sided pigtail catheter placed. Currently, mechanically ventilated, Pip mid 20's synchronized with the vent. Chest tube at -40 with air leak. 01/12: No events over the night. Patient doing better, shortness of breath significantly improved, complaining of some chest pain over the chest tube site. Eyes feel better, no visual disturbances, no double vision, very happy with artificial tears. Better spirits. Left-sided chest tube with continuous air leak on suction at -40. He remains on high flow nasal cannula at 0.4 FiO2 and 35 L/min, with O2 sat of 100%. Morning chest x-ray reviewed, mild improvement in left-sided pneumothorax, unchanged infiltrates bilateral worse on the right. 01/13: Patient was weaned off to 6 L nasal cannula last evening over the night he required to be placed back on high flow due to desaturation to mid 80s. This morning he continues to require high flow nasal cannula flow increased from 25-35 L/min due to low O2 sat currently at 40% with sats in the 90s. Otherwise he feels a little better still complaining of some left-sided chest pain due to chest tube shortness of breath unchanged, eye discomfort significantly improved. Chest tube on suction at -40 with continuous air leak. T-max 99.2. 01/14: No events overnight. Patient still requiring high flow nasal cannula at 20 L/min and FiO2 of 0.4 with O2 sats in the mid 90s. Continuous continuous air leak on suction at -40 from a left-sided chest tube. Patient feels better, shortness of breath slightly improved, coughing, bringing up yellow-green sputum. No other complaints, good spirits. T-max 99.7. Morning chest x-ray reviewed, left-sided loculated pneumothorax unchanged. Still with persistent bilateral infiltrates, right worse than left. 01/15: No events overnight. Patient on high flow nasal cannula 20 L/min FiO2 of 0.3, tapering it down. Still some left-sided chest pain on the pigtail catheter. No other complaints. Morning chest x-ray reviewed, left-sided loculated pneumothorax is unchanged as well as persistent bilateral infiltrates. Chest tube to suction at -40 with continuous air leak. 01/16: no changes. remains on high flow NC. no improvements. chest tube to suction. 01/17: down to 6L o2 by NC today. no air leak on CT. still complaints of stable dyspnea. 01/18: No air leak but lung remains incompletely expanded left side. Will need to check tube for plug or replace. 01/19: Chest tube up sized yesterday, but loculated pneumothorax persists, with midline shift. Dr. Amanda to reevaluate per Dr. Spear's notes Objective Vital Signs Date Time Temp Pulse Resp B/P (MAP) Pulse Ox O2 Delivery O2 Flow Rate FiO2 01/19/18 06:32 4 01/19/18 06:00 86 01/19/18 04:00 98.4 124/86 (99) 96 01/18/18 21:53 Nasal Cannula 2.00 01/16/18 00:48 30 Intake and Output 01/19/18 01/19/18 01/20/18 08:00 16:00 00:00 Intake Total 720 ml Output Total 550 ml Balance 170 ml Result Diagram: 01/16/187 01/16/187 Imaging Last 24 hours Impressions Chest X-Ray 01/15/18 06 Signed Impressions: Service Date/Time: Monday, January 15, 2018 04:03 - CONCLUSION: No change right greater than left pulmonary opacities and moderate sized loculated left pneumothorax with mediastinal shift. Arnoldo Christensen MD Last Impressions Chest X-Ray 01/14/18399 Signed Impressions: Service Date/Time: Sunday, January 14, 2018 04:39 - CONCLUSION: Moderate-sized loculated left pneumothorax persists and with mediastinal shift not significantly changed. Arnoldo Christensen MD Last Impressions Chest X-Ray 01/13/18399 Signed Impressions: Service Date/Time: Saturday, January 13, 2018 04:30 - CONCLUSION: 1. Loculated moderate size left pneumothorax with mediastinal shift. Left chest tube remains in place. 2. Diffuse bilateral airspace opacities persist. Arnoldo Christensen MD Last Impressions Chest X-Ray 01/12/18399 Signed Impressions: Service Date/Time: December 05:18 - CONCLUSION: 1. Mild interval improvement in left pneumothorax. Mediastinal shift to the right remains. 2. Diffuse airspace disease remains right greater than left. Saleem Mejia MD Procedures Chest tube placement Endotracheal tube placement Objective Remarks General - middle age gentleman, awake, alert, in no distress. On NC 2L HEENT - pupils equal, reactive, sclerae anicteric, neck supple, moist mucous membranes CV - regular heart sounds, no murmurs, rubs or gallops, no JVD. Chest -scattered coarse breath sounds bilateral, decreased sounds left side, no wheezes, left-sided pigtail catheter in place, 1+ air leak. Abdomen - soft, non-tender, not distended, BS present. no guarding. Extremities - no edema, + peripheral pulses Neuro - awake alert and oriented 3, moves all extremities A/P Problem List: (1) Migraine headache ICD Code: G43.909 - Migraine, unspecified, not intractable, without status migrainosus Status: Chronic (2) Spontaneous pneumothorax ICD Code: J93.83 - Other pneumothorax Status: Acute (3) Recurrent spontaneous pneumothorax ICD Code: J93.83 - Other pneumothorax Status: Acute (4) COPD exacerbation ICD Code: J44.1 - Chronic obstructive pulmonary disease with (acute) exacerbation Status: Acute (5) Pulmonary fibrosis ICD Code: J84.10 - Pulmonary fibrosis, unspecified Status: Chronic Assessment and Plan 1. Acute hypoxic respiratory failure - requiring intubation and mechanical ventilation, now extubated 2. 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 COPD, chronic bronchitis with bronchiectasis 4. Pulmonary fibrosis 5. HTN 1. Wean FiO2 to keep oxygen saturation more than 88%, currently on 2 L nasal cannula 2. Bronchodilators 3. Continue chest tube to suction at -40. s/p chest tube up sizing by IR 4. Daily chest x-ray 5. s/p full course Augmentin. 6. Continue Solu-Medrol 40 mg IV every 6 hours per pulmonary 7. On antihypertensives with amlodipine and metoprolol 8. Artificial tears as needed 9. low-dose Xanax as needed for anxiety -discussed with the patient and he agrees 10. GI/DVT prophylaxis 11. Have discussed extensively with patient, Dr. Coy and . patient still not a candidate for CT surgery here due to friable tissue. most likely would benefit from permanent valve, but more-over, needs work-up for transplant, as his lung disease is fairly rapidly progressive. no bed available at [facility] per Dr. Brennan's note. will continue to look for transplant centers with the ability to work the patient up for transplant. Level 2 Problem Qualifiers (1) Migraine headache: Qualified Codes: G43.009 - Migraine without aura, not intractable, without status migrainosus Vasile Mclaughlin MD Jan 19, 2018 08:29
[2018-01-19] MEDS: ENOXAPARIN SODIUM 40 MG/0.4 ML SYRINGE SQ SCH (09:00)
[2018-01-19] MEDS: TIOTROPIUM BROMIDE 18 MCG INH INH SCH (09:00)
[2018-01-19] MEDS: LIDOCAINE HCL 5% PATCH T-DERMAL SCH (09:00)
[2018-01-19] MEDS: SODIUM CHLORIDE 0.9% FLUSH 10 ML FLUSH IV FLUSH SCH ×2 (09:00→21:00)
[2018-01-19] MEDS: FAMOTIDINE 20 MG/2 ML VIAL IV PUSH SCH ×2 (09:00→21:29)
[2018-01-19] MEDS: guaiFENesin E.R. 600 MG TAB PO SCH ×2 (09:00→21:30)
[2018-01-19] MEDS: BUDESONIDE-FORMOTEROL 160/4.5 MCG INHALER INH SCH ×2 (09:00→21:00)
[2018-01-19] MEDS: DOCUSATE SODIUM 50 MG/SENNA 8.6 MG TAB PO SCH ×2 (09:00→21:30)
[2018-01-19] MEDS: METOPROLOL TARTRATE 25 MG TAB PO SCH ×2 (09:00→21:30)
--- NOTE | 2018-01-19 14:56 | HHI.HCPN ---
Reason for visit a. To assist with evaluation and management of symptoms including: Dyspnea, weakness b. To assist medical decision maker(s) with: better understanding of current medical conditions; weighing benefits/burdens of medical treatment options; making medical treatment decisions. Subjective/Interval History He is awake and alert today, expressing frustration that mixed messages he is receiving. Detailed explanation was given on his clinical findings, packaging sales consultant opinions and prognosis going forward. He was previously referred to [facility] for evaluation for either endobronchial valve placement or lung transplant. There was no bed available at [facility] at the time. Consideration is being given to evaluate other tertiary centers which may be able to provide an evaluation for EBV/transplant. He is mildly dyspneic but able to converse. He had received Xanax shortly before my visit and is displaying minimal anxiety. He does, however, exhibit a level of distrust. When discussing the chest to he demanded to see the chest to Pleur-evac in order to verify that it was truly set at -40 suction. He also wanted to see the air leak and was compliant with cough and deep breathe demonstrating large air bubbles through the chamber. He states that he can hear the air "whistling" when he takes a deep breath and has an unusual sensation like bubbles in his chest when he breathes. * Vital signs: Blood pressure 124/86, respiratory rate 26, oxygen saturation 100 % on 2 L nasal cannula, afebrile. * Radiology: Chest x-ray shows interval upsizing of left-sided chest tube with persistent loculated left-sided pneumothoraces and mediastinal shift. Stable interstitial patchy airspace disease right greater than left. * No new laboratory studies today. After review of the data, I did discuss advanced directives with patient. At this time he states that he would wish full resuscitative measures and so will remain a full code. We also discussed a healthcare surrogate of his choice and reviewed the laws for [place] proxy decision makers. I did explain to him that as he is not , if he were unable to communicate with us or became incapacitated, his children would be the first on the list per [place] statutes for proxy decision makers, followed by his siblings or other adult relative or close friend of the patient who wished to serve. If no decision-makers were able to be located, it would revert to social science analyst who would be selected by bioethics committee of the healthcare provider. He states he wishes to consider his healthcare surrogate and we will discuss at next meeting. He is aware that in that interim, [place] statute would dictate his decision maker. . Family/friend interactions No family or friends at bedside today. . Advance Directives Living Will: Never completed Health Care Surrogate: Never completed Durable Power of Evidence Custodian: Never completed Objective Vital Signs Date Time Temp Pulse Resp B/P (MAP) Pulse Ox O2 Delivery O2 Flow Rate FiO2 01/19/18 08:00 76 01/19/18 07:00 100 Nasal Cannula 2.00 01/19/18 06:32 4 01/19/18 06:00 86 01/19/18 04:00 98.4 76 26 124/86 (99) 96 01/19/18 04:00 76 01/19/18 02:00 66 01/19/18 00:00 71 01/19/18 00:00 98.6 71 22 121/90 (100) 100 01/18/18 22:00 74 01/18/18 21:53 100 Nasal Cannula 2.00 01/18/18 20:00 97.9 82 26 136/97 (110) 100 01/18/18 20:00 82 01/18/18 19:00 100 Nasal Cannula 2.00 01/18/18 18:00 79 01/18/18 16:00 98.5 89 19 113/74 (87) 100 01/18/18 16:00 89 Intake & Output 01/19/18 01/19/18 07:00 19:00 Intake Total 720 ml Output Total 550 ml Balance 170 ml Intake Oral 720 ml Output Urine Total 550 ml Drainage Total 0 ml # Bowel Movements 0 Physical Exam CONSTITUTIONAL/GENERAL: This is an adequately nourished patient, sitting up in bed in no acute distress. TUBES/LINES/DRAINS: Left chest tube, PIV right hand SKIN: No jaundice, rashes, or lesions. No wounds seen anteriorly. Skin temperature appropriate. Not diaphoretic. HEAD: Atraumatic. Normocephalic. EYES: Pupils equal and round and reactive. Extraocular motions intact. No scleral icterus. No injection or drainage. Fundi not examined. ENT: Nose without bleeding or purulent drainage. NECK: Trachea midline. Supple. No palpable thyroid enlargement or nodularity. CARDIOVASCULAR: Regular rate and rhythm without murmurs, gallops, or rubs. No JVD. Peripheral pulses symmetric. RESPIRATORY/CHEST: Lungs diminished left greater than right, scattered wheezes, coarse lung sounds. GASTROINTESTINAL: Abdomen soft, nondistended. No hepato-splenomegaly, or palpable masses. No guarding. Bowel sounds present. GENITOURINARY: Without palpable bladder distension. MUSCULOSKELETAL: Extremities without clubbing, cyanosis, or edema. No joint tenderness or effusion noted. No calf tenderness. No mottling or clubbing. NEUROLOGICAL: Alert, oriented 4, moves all extremities with equal strength and purpose. PSYCHIATRIC: Calm, cooperative. . Diagnostic Tests Laboratory Date/Time Source Procedure Growth Status 12/29/17 18:21 Blood Peripheral Aerobic Blood Culture - Final NO GROWTH IN 5 DAYS Complete 12/29/17 18:21 Blood Peripheral Anaerobic Blood Culture - Final NO GROWTH IN 5 DAYS Complete 01/14/18 18:00 Sputum Expectorated Sputum Gram Stain - Final Complete 01/14/18 18:00 Sputum Expectorated Sputum Sputum Culture - Final HEAVY GROWTH NORMAL RESPIRATORY MAKSIM Complete 12/29/17 17:00 Urine Catheterized Urine Legionella Antigen - Final PRESUMPTIVE NEGATIVE FOR LEGIONELLA P... Complete 12/29/17 17:00 Urine Catheterized Urine Streptococcus pneumoniae Antigen (M - Final PRESUMPTIVE NEGATIVE FOR STREPTOCOCCU... Complete Result Diagram: 01/16/18 0437 01/16/18 0437 Imaging Last Impressions Chest X-Ray 01/19/18 0000 Signed Impressions: Service Date/Time: January 05:26 - CONCLUSION: 1. Interval upsizing of left-sided chest tube with persistent loculated left-sided pneumothoraces and mediastinal shift. 2. Stable interstitial and patchy airspace disease, right greater than left. Zac Cabrera MD Tunnelled Chest Tube Removal 01/18/18 0000 Signed Impressions: Service Date/Time: Thursday, January 18, 2018 00:00 - CONCLUSION: Uncomplicated chest tube removal. Arnoldo Gonzalez MD Chest Tube Insertion 01/18/18 0000 Signed Impressions: Service Date/Time: Thursday, January 18, 2018 10:34 - CONCLUSION: Uncomplicated chest tube placement as above. Arnoldo Gonzalez MD . Procedures 01/11: Left pigtail chest tube placement. 01/11: Endotracheal intubation 01/18: Replacement of left pigtail chest tube . Assessment and Plan Disease Oriented Problem List: (1) HTN (hypertension) (2) Recurrent spontaneous pneumothorax (3) Pulmonary fibrosis (4) COPD (chronic obstructive pulmonary disease) Symptom Scale: (1) Dyspnea and respiratory abnormalities 0-10 Scale: 5 (2) Weakness 0-10 Scale: 5 Pertinent Non-Medical Issues Psychosocial:He was born in [place] and finished high school there. 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 He was once and after 2 children. He has 1 son and 1 daughter. He was not in the . Spiritual: He was raised as a Jehovah witness but is nonpracticing. Legal: No legal issues noted. Ethical issues impacting care: No ethical issues impacting care. . Important Contacts Sister: Blanca Rodney ([phone] Mother: Precious Echeverria Aunt: Lilia Nicole: Son: Robin Dos Santos (estranged) Daughter: Karma Dos Santos Prognosis His prognosis is guarded. He is having recurrent pneumothoraces and has failed bleb resection and decortication. He has severe pulmonary fibrosis as well as COPD, pneumonitis and bronchiectasis. [facility]. He is at high risk for further complications and decline. . Code Status: Full Code Plan PLAN: Legal decision maker: Patient is currently capacitated to make his own healthcare decisions. He has at this time declining to name a healthcare surrogate pending his further consideration. Per [place] statute he is aware that that would make his children healthcare proxies, if they wished to serve, in case of his incapacitation. Goals: Aggressive. CODE STATUS: FULL CODE SYMPTOMS: * Dyspnea - his dyspnea is improving with the reexpansion of his left lung, now that the chest tube has been repositioned. He is mildly tachypneic with a respiratory rate about 24. He is able to converse without significant dyspnea. He remains on 2 L nasal cannula. Chest tube remains to -40 suction with positive air leak. Given the severity of his pulmonary fibrosis, recurrent spontaneous pneumothoraces and recent pneumonia he is at risk of continued dyspnea and recurrent respiratory compromise. School Counsellor service is coordinating with Dr. Santos to investigate tertiary centers for endobronchial valve placement and workup for lung transplant. * Weakness - he has been hospitalized a significant portion of the last 6 months resulting in debility. He has been too hypoxic to work with physical therapy and after his transfer to ICU on 01/11, physical therapy was suspended. As his chest tube is now reexpanding the lung, would recommend reordering physical therapy services. Palliative care will continue to follow the patient during hospital course as condition evolves, to assist patient/decision-maker with understanding of their medical conditions, weighing benefits/burdens of treatment options, for clarification of goals of treatment. Additionally will assist with any symptoms of palliative concern. . Time Spent Time Periods: 13: 30-14: 15 Total Floor Time (mins): 75 Face to Face Time (mins): 45 >50% Counseling/Coord of Care: Yes Attestation To help prompt me to consider important information that might be impacting today's encounter and assessment, information from prior notes written by myself or my colleagues may have been "brought forward" into today's note. My signature on this note, however, is an attestation that I personally performed the exam, history, and/or decision-making noted today, and, unless otherwise indicated, the interactions with patient, family, and staff as well as the review of records all occurred today. I also attest that the listed assessment and stated plan reflect my best clinical judgment today based on the combination of historical information, prior notes, and today's exam/ interactions. When time spent is documented, it refers only to time spent today by the signer, or if indicated, combined time spent today by collaborating physician/nurse practitioner. . Jessica Cabrera Jan 19, 2018 2:56 pm
--- NOTE | 2018-01-19 17:50 | HHI.PR ---
Subjective Remarks Feels OK. Had a New chest tube inserted on left. Still some air leak. Now on O2 N/C 2 L.On solumedrol. CXR shows a Stable left loculated Pneumothorax. Objective Vital Signs Date Time Temp Pulse Resp B/P (MAP) Pulse Ox O2 Delivery O2 Flow Rate FiO2 01/19/18 16:00 98.6 100 20 137/90 (106) 100 01/19/18 16:00 76 01/19/18 15:30 18 01/19/18 14:00 86 01/19/18 08:00 76 01/19/18 07:00 100 Nasal Cannula 2.00 01/19/18 06:32 4 01/19/18 06:00 86 01/19/18 04:00 98.4 76 26 124/86 (99) 96 01/19/18 04:00 76 01/19/18 02:00 66 01/19/18 00:00 71 01/19/18 00:00 98.6 71 22 121/90 (100) 100 01/18/18 22:00 74 01/18/18 21:53 100 Nasal Cannula 2.00 01/18/18 20:00 97.9 82 26 136/97 (110) 100 01/18/18 20:00 82 01/18/18 19:00 100 Nasal Cannula 2.00 01/18/18 18:00 79 I/O 01/18/18 01/18/18 01/18/18 01/19/18 01/19/18 01/19/18 06:59 14:59 22:59 06:59 14:59 22:59 Intake Total 1000 ml 600 ml 720 ml Output Total 1750 ml 1220 ml 550 ml Balance -750 ml -620 ml 170 ml Intake Oral 1000 ml 600 ml 720 ml Output Urine Total 1750 ml 1200 ml 550 ml Drainage Total 0 ml 20 ml 0 ml # Bowel Movements 0 0 0 Result Diagram: 01/16/1843601/16/18436 Objective Remarks GENERAL: This is a well-built middle-aged man who is awake and on O2. No pallor or icterus, or edema. HEAD, EYES, EARS, NOSE, THROAT: Head normocephalic. The pupils are reactive and equal. T Throat clear. NECK: The neck is supple. No venous distention. CHEST: Decreased breath sounds over the left mid and upper chest with occ crackles and wheezes at the lung bases.Chest Tube is in left chest. HEART: Heart sounds are regular. S1 and S2. No murmur. No S3. ABDOMEN: Abdomen soft and without masses. No organomegaly or tenderness. The bowel sounds are active. EXTREMITIES: No lesions. No edema. NEUROLOGIC: Reflexes are 1 +. SKIN: No lesions. Assessment and Plan Assessment and Plan IMPRESSION: 1. Recurrent left pneumothorax with hypoxemia. 2. COPD and chronic bronchitis with bronchiectasis. 3. Basilar pulmonary fibrosis. 4. Hypertension. 5. Respiratory failure Plan : 1. Cont Chest tube to wall suction 2. Wean O2 to 2 L 3. CBC,BMP 4. Duonebs qid. 5. Up in room as tolerated 6. IS at bedside q3h 7. Taper solumedrol to 40 mgQ8H 8. CXR in am 9. Dr Blunt to Evaluate Prerna Santos MD Jan 19, 2018 17:50
[2018-01-19] MEDS: REMOVE OLD LIDOCAINE PATCH T-DERMAL SCH (21:00)
[2018-01-20] VITALS (14 sets, daily range): BP systolic 106–123; BP diastolic 58–88; PULSE 66–83; RESP 16–30; TEMP 97.4–98.9; O2SAT 98–100
[2018-01-20] MEDS: RESP: ALBUTEROL 2.5 MG/IPRATROPIUM 0.5 MG NEB (SCH) INH ×4 (03:10→21:31)
[2018-01-20 04:18] LABS: AUTOMATED NEUTROPHIL # 11.5 TH/MM3 (1.8-7.7); BASOPHIL # 0.1 TH/MM3 (0-0.2); BASOPHIL % 0.5 % (0.0-2.0); HEMATOCRIT 40.3 % (39.0-51.0); HEMOGLOBIN 13.2 GM/DL (13.0-17.0); LYMPH % 11.5 % (9.0-44.0); LYMPHOCYTE # 1.6 TH/MM3 (1.0-4.8); MEAN CELL VOLUME 84.4 FL (80.0-100.0); MEAN CORPUSCULAR HEMOGLOBIN 27.6 PG (27.0-34.0); MEAN CORPUSCULAR HGB CONC 32.7 % (32.0-36.0); MEAN PLATELET VOLUME 7.7 FL (7.0-11.0); MONO % 5.7 % (0.0-8.0); MONOCYTE # 0.8 TH/MM3 (0-0.9); NEUT % 82.3 % (16.0-70.0); PLATELET COUNT 325 TH/MM3 (150-450); RED BLOOD COUNT 4.77 MIL/MM3 (4.50-5.90); RED CELL DISTRIBUTION WIDTH 14.3 % (11.6-17.2)
[2018-01-20 04:47] LABS: ALBUMIN 3.2 GM/DL (3.4-5.0); ALT (GPT) 32 U/L (12-78); AST (GOT) 16 U/L (15-37); BICARBONATE 32.4 MEQ/L (21.0-32.0); BLOOD UREA NITROGEN 15 MG/DL (7-18); CALCIUM 9.1 MG/DL (8.5-10.1); CHLORIDE 98 MEQ/L (98-107); GLOMERULAR FILTRATION RATE 145 ML/MIN (>89); GLUCOSE,RANDOM 109 MG/DL (74-106); SODIUM (NA) 135 MEQ/L (136-145)
[2018-01-20 04:49] LABS: ALKALINE PHOSPHATASE 93 U/L (45-117); TOTAL BILIRUBIN ADULT 0.2 MG/DL (0.2-1.0)
[2018-01-20 05:05] LABS: TOTAL PROTEIN 8.3 GM/DL (6.4-8.2)
[2018-01-20] MEDS: methylPREDNISolone SOD SUCC 40 MG/1 ML VIAL IV PUSH SCH ×2 (06:14→21:05)
--- NOTE | 2018-01-20 06:32 | RADRPT ---
EXAM DATE/TIME: 01/20/2018 03:58 [facility] COMPARISON: CHEST EXPIRATION ONLY, January 19, 2018, 5:26. CHEST SINGLE AP, January 18, 2018, 5:03. INDICATIONS : Respiratory disease. MEDICAL HISTORY : Pneumothorax. SURGICAL HISTORY : Chest tube. ENCOUNTER: Subsequent ACUITY: 1 month PAIN SCORE: 8/10 LOCATION: Left chest FINDINGS: Left chest drainage catheter is coiled in the lateral left chest there has been reduction in the size of the lateral component of the pneumothorax. A small residual lucency inferior to the catheter bello sures 1.6 cm. Lucency along the left hemidiaphragm suggests a residual subpulmonic component to the pneumothorax. The superior medial component in the upper chest is similar in appearance to prior. D iffuse scattered airspace infiltrates in the right lung similar in configuration to prior. CONCLUSION: Reduction in the size of the left pneumothorax with chest catheter in place. Residual pneumothoraces present subpulmonic and in the upper medial left chest. Inder Herrera MD on January 20, 2018 at 6:29 Board Certified Radiologist. This report was verified electronically.
--- NOTE | 2018-01-20 07:35 | HHI.CCPN ---
Subjective Remarks/Hospital Course 47-year-old male with a past medical history significant for pulmonary fibrosis , COPD and hypertension and VATS/bleb resection/pleurodesis by Dr. Amanda on 08/23 is admitted to hospital with increased shortness of breath. Chart documentation for the past 24 hours prior to admission he has had significant fever/chills and increasing shortness of breath. Patient was found to have a left-sided pneumothorax on chest x-ray. The chest tube was placed and patient was admitted to medicine with pulmonary consultation in place. Today shortly after midnight the chest tube was found at the patient's bedside the dislodged, patient was in severe respiratory distress, diaphoretic and hypoxemic. The stat x-ray showed reaccumulation of left-sided pneumothorax and emergent chest tube was placed. 12/30 - resting in bed on 6 nasal cannula. Complaining of sore throat. Cough. Pneumothorax last left-sided similar size in reviewing chest x-ray this AM. Discussed with Dr. Blunt and patient 12/31: Resting in bed on nasal cannula. 6 L. Sore throat better controlled with Chloraseptic [place]. Small left sided pneumothorax similar in size from yesterday. Maintaining positive attitude. 01/01: no change. still quite dyspneic. on 6L and intermittently NRB. no new complaints. 01/02: Intermittent requiring nasal cannula versus nonrebreather mask. Remain short of breath. Small air leak persists. -40 cm H2O 01/03: Currently on nasal cannula 6 L. Appears depressed. Small air leak persists 1-2 chambers. -40 cm H2O. 01/04: Remains on nasal cannula 6 L. Switch is off and on between nonrebreather nasal cannula. Air leak persists. Pulmonology is okay with transfer to floor. 01/11: Per report, pigtail catheter placed earlier during hospitalization came out last night. Earlier this AM, patient with worsening respiratory distress, requiring NRM, with PO2 in the 50's. Stat CXR showing left sided pneumothorax. After discussing with patient, he was intubated and simultaneously had a left sided pigtail catheter placed. Currently, mechanically ventilated, Pip mid 20's synchronized with the vent. Chest tube at -40 with air leak. 01/12: No events over the night. Patient doing better, shortness of breath significantly improved, complaining of some chest pain over the chest tube site. Eyes feel better, no visual disturbances, no double vision, very happy with artificial tears. Better spirits. Left-sided chest tube with continuous air leak on suction at -40. He remains on high flow nasal cannula at 0.4 FiO2 and 35 L/min, with O2 sat of 100%. Morning chest x-ray reviewed, mild improvement in left-sided pneumothorax, unchanged infiltrates bilateral worse on the right. 01/13: Patient was weaned off to 6 L nasal cannula last evening over the night he required to be placed back on high flow due to desaturation to mid 80s. This morning he continues to require high flow nasal cannula flow increased from 25-35 L/min due to low O2 sat currently at 40% with sats in the 90s. Otherwise he feels a little better still complaining of some left-sided chest pain due to chest tube shortness of breath unchanged, eye discomfort significantly improved. Chest tube on suction at -40 with continuous air leak. T-max 99.2. 01/14: No events overnight. Patient still requiring high flow nasal cannula at 20 L/min and FiO2 of 0.4 with O2 sats in the mid 90s. Continuous continuous air leak on suction at -40 from a left-sided chest tube. Patient feels better, shortness of breath slightly improved, coughing, bringing up yellow-green sputum. No other complaints, good spirits. T-max 99.7. Morning chest x-ray reviewed, left-sided loculated pneumothorax unchanged. Still with persistent bilateral infiltrates, right worse than left. 01/15: No events overnight. Patient on high flow nasal cannula 20 L/min FiO2 of 0.3, tapering it down. Still some left-sided chest pain on the pigtail catheter. No other complaints. Morning chest x-ray reviewed, left-sided loculated pneumothorax is unchanged as well as persistent bilateral infiltrates. Chest tube to suction at -40 with continuous air leak. 01/16: no changes. remains on high flow NC. no improvements. chest tube to suction. 01/17: down to 6L o2 by NC today. no air leak on CT. still complaints of stable dyspnea. 01/18: No air leak but lung remains incompletely expanded left side. Will need to check tube for plug or replace. 01/19: Chest tube up sized yesterday, but loculated pneumothorax persists, with midline shift. Dr. Amanda to reevaluate per Dr. Hidalgo's notes 01/20: It may be worth targeting the isolated upper medial pneumothorax on the left to see if we can get the pleural space stuck up. Objective Vital Signs Date Time Temp Pulse Resp B/P (MAP) Pulse Ox O2 Delivery O2 Flow Rate FiO2 01/20/18 06:00 73 01/20/18 04:00 97.4 22 106/74 (85) 100 01/20/18 03:11 Nasal Cannula 2.00 Intake and Output 01/20/18 01/20/18 01/20/18 07:59 15:59 23:59 Intake Total 400 ml Output Total 990 ml Balance -590 ml Result Diagram: 01/20/18 0329 01/20/18 0329 Imaging Last 24 hours Impressions Chest X-Ray 01/15/18 0600 Signed Impressions: Service Date/Time: Monday, January 15, 2018 04:03 - CONCLUSION: No change right greater than left pulmonary opacities and moderate sized loculated left pneumothorax with mediastinal shift. Arnoldo Christensen MD Last Impressions Chest X-Ray 01/14/18 040 Signed Impressions: Service Date/Time: Sunday, January 14, 2018 04:39 - CONCLUSION: Moderate-sized loculated left pneumothorax persists and with mediastinal shift not significantly changed. Arnoldo Christensen MD Last Impressions Chest X-Ray 01/13/18 0400 Signed Impressions: Service Date/Time: Saturday, January 13, 2018 04:30 - CONCLUSION: 1. Loculated moderate size left pneumothorax with mediastinal shift. Left chest tube remains in place. 2. Diffuse bilateral airspace opacities persist. Arnoldo Christensen MD Last Impressions Chest X-Ray 01/12/18 0400 Signed Impressions: Service Date/Time: December 05:18 - CONCLUSION: 1. Mild interval improvement in left pneumothorax. Mediastinal shift to the right remains. 2. Diffuse airspace disease remains right greater than left. Saleem Mejia MD Procedures Chest tube placement Endotracheal tube placement Objective Remarks General - middle age gentleman, awake, alert, in no distress. On NC 2L HEENT - pupils equal, reactive, sclerae anicteric, neck supple, moist mucous membranes CV - regular heart sounds, no murmurs, rubs or gallops, no JVD. Chest -scattered coarse breath sounds bilateral, decreased sounds left side, no wheezes, left-sided pigtail catheter in place, 1+ air leak. Abdomen - soft, non-tender, not distended, BS present. no guarding. Extremities - no edema, + peripheral pulses Neuro - awake alert and oriented 3, moves all extremities A/P Problem List: (1) Migraine headache ICD Code: G43.909 - Migraine, unspecified, not intractable, without status migrainosus Status: Chronic (2) Spontaneous pneumothorax ICD Code: J93.83 - Other pneumothorax Status: Acute (3) Recurrent spontaneous pneumothorax ICD Code: J93.83 - Other pneumothorax Status: Acute (4) COPD exacerbation ICD Code: J44.1 - Chronic obstructive pulmonary disease with (acute) exacerbation Status: Acute (5) Pulmonary fibrosis ICD Code: J84.10 - Pulmonary fibrosis, unspecified Status: Chronic Assessment and Plan 1. Acute hypoxic respiratory failure - requiring intubation and mechanical ventilation, now extubated 2. 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 COPD, chronic bronchitis with bronchiectasis 4. Pulmonary fibrosis 5. HTN 1. Wean FiO2 to keep oxygen saturation more than 88%, currently on 2 L nasal cannula 2. Bronchodilators 3. Continue chest tube to suction at -40. s/p chest tube up sizing by IR 4. Daily chest x-ray 5. s/p full course Augmentin. 6. Continue Solu-Medrol 40 mg IV every 6 hours per pulmonary 7. On antihypertensives with amlodipine and metoprolol 8. Artificial tears as needed 9. low-dose Xanax as needed for anxiety -discussed with the patient and he agrees 10. GI/DVT prophylaxis 11. Have discussed extensively with patient, Dr. Coy and . patient still not a candidate for CT surgery here due to friable tissue. most likely would benefit from permanent valve, but more-over, needs work-up for transplant, as his lung disease is fairly rapidly progressive. will continue to look for transplant centers with the ability to work the patient up for transplant. Consider second tube to evacuate the loculated upper middle space and hopefully get the pleural surfaces stuck together. Problem Qualifiers (1) Migraine headache: Qualified Codes: G43.009 - Migraine without aura, not intractable, without status migrainosus Neal Brennan MD Jan 20, 2018 07:35
[2018-01-20] MEDS: CHLORHEXIDINE 0.12% (ORAL KIT) 15 ML CUP MT SCH ×2 (08:00→20:00)
[2018-01-20] MEDS: guaiFENesin E.R. 600 MG TAB PO SCH ×3 (09:00→21:00)
[2018-01-20] MEDS: TIOTROPIUM BROMIDE 18 MCG INH INH SCH (09:00)
[2018-01-20] MEDS: BUDESONIDE-FORMOTEROL 160/4.5 MCG INHALER INH SCH ×2 (09:00→21:00)
[2018-01-20] MEDS: SODIUM CHLORIDE 0.9% FLUSH 10 ML FLUSH IV FLUSH SCH ×2 (09:00→21:00)
[2018-01-20] MEDS: ENOXAPARIN SODIUM 40 MG/0.4 ML SYRINGE SQ SCH (10:07)
[2018-01-20] MEDS: BENZOCAINE-MENTHOL (SUGAR FREE) 15 MG-3.6 MG LOZENGE BUCCAL PRN ×3 (10:07→21:05)
[2018-01-20] MEDS: METOPROLOL TARTRATE 25 MG TAB PO SCH ×2 (10:07→21:05)
[2018-01-20] MEDS: DOCUSATE SODIUM 50 MG/SENNA 8.6 MG TAB PO SCH ×2 (10:07→21:05)
[2018-01-20] MEDS: LIDOCAINE HCL 5% PATCH T-DERMAL SCH (10:08)
[2018-01-20] MEDS: guaiFENesin/CODEINE SYRUP 200 MG/20 MG/10 ML CUP PO PRN ×3 (10:08→21:06)
[2018-01-20] MEDS: FAMOTIDINE 20 MG/2 ML VIAL IV PUSH SCH ×2 (10:08→21:04)
[2018-01-20] MEDS: HYDROmorphone HCL PF 2 MG/ML VIAL IV PUSH PRN ×3 (10:08→22:36)
--- NOTE | 2018-01-20 10:31 | HHI.HCPN ---
Reason for visit a. To assist with evaluation and management of symptoms including: Dyspnea, weakness b. To assist medical decision maker(s) with: better understanding of current medical conditions; weighing benefits/burdens of medical treatment options; making medical treatment decisions. Subjective/Interval History He is breathing a little better today. Pain is better controlled. * Vital signs: Blood pressure 124/86, respiratory rate 26, oxygen saturation 100 % on 2 L nasal cannula, afebrile. * Radiology: Chest x-ray shows reduction in the size of the left pneumothorax with chest catheter in place. Residual pneumothoraces present subpulmonic and in the upper medial left chest. * Laboratory: WBC 14.0, hemoglobin 13.2, hematocrit 40.3, platelets 325, sodium 135, potassium 4.6, BUN 15, creatinine 0.70. Discussed health care surrogate status. Form was provided to him yesterday for his consideration. He wishes to speak with his daughter prior to completing the form to see if she is willing to be his surrogate, otherwise he will discuss with his sister and his aunt. . Family/friend interactions No family at bedside. . Advance Directives Living Will: Never completed Health Care Surrogate: Never completed Durable Power of Urban Planning Professor: Never completed Objective Vital Signs Date Time Temp Pulse Resp B/P (MAP) Pulse Ox O2 Delivery O2 Flow Rate FiO2 01/20/18 07:54 30 01/20/18 07:38 100 Nasal Cannula 2.00 01/20/18 06:00 73 01/20/18 04:00 76 01/20/18 04:00 97.4 76 22 106/74 (85) 100 01/20/18 03:11 99 Nasal Cannula 2.00 01/20/18 02:00 73 01/20/18 00:00 98.9 83 18 122/88 (99) 98 01/20/18 00:00 83 01/19/18 22:00 98 01/19/18 21:30 100 Nasal Cannula 2.00 01/19/18 20:00 98.1 98 18 128/69 (88) 98 01/19/18 20:00 93 01/19/18 19:00 97 Nasal Cannula 2.00 01/19/18 18:27 18 01/19/18 18:00 76 01/19/18 16:00 98.6 100 20 137/90 (106) 100 01/19/18 16:00 76 01/19/18 14:00 86 Intake & Output 01/20/18 01/20/18 06:59 18:59 Intake Total 400 ml Output Total 990 ml Balance -590 ml Intake Oral 400 ml Output Urine Total 950 ml Drainage Total 40 ml Physical Exam CONSTITUTIONAL/GENERAL: This is an adequately nourished patient, sitting up in bed in no acute distress. TUBES/LINES/DRAINS: Left chest tube, PIV right hand NECK: Trachea midline. Supple. No palpable thyroid enlargement or nodularity. CARDIOVASCULAR: Regular rate and rhythm without murmurs, gallops, or rubs. No JVD. Peripheral pulses symmetric. RESPIRATORY/CHEST: Lungs diminished left greater than right, occasional wheezes , coarse lung sounds. GASTROINTESTINAL: Abdomen soft, nondistended. No hepato-splenomegaly, or palpable masses. No guarding. Bowel sounds present. GENITOURINARY: Without palpable bladder distension. MUSCULOSKELETAL: Extremities without clubbing, cyanosis, or edema. NEUROLOGICAL: Alert, oriented 4, moves all extremities with equal strength and purpose. PSYCHIATRIC: Mildly anxious, cooperative. . Diagnostic Tests Laboratory Laboratory Tests Test 01/20/18 03:29 White Blood Count 14.0 TH/MM3 (4.0-11.0) Red Blood Count 4.77 MIL/MM3 (4.50-5.90) Hemoglobin 13.2 GM/DL (13.0-17.0) Hematocrit 40.3 % (39.0-51.0) Mean Corpuscular Volume 84.4 FL (80.0-100.0) Mean Corpuscular Hemoglobin 27.6 PG (27.0-34.0) Mean Corpuscular Hemoglobin Concent 32.7 % (32.0-36.0) Red Cell Distribution Width 14.3 % (11.6-17.2) Platelet Count 325 TH/MM3 (150-450) Mean Platelet Volume 7.7 FL (7.0-11.0) Neutrophils (%) (Auto) 82.3 % (16.0-70.0) Lymphocytes (%) (Auto) 11.5 % (9.0-44.0) Monocytes (%) (Auto) 5.7 % (0.0-8.0) Eosinophils (%) (Auto) 0.0 % (0.0-4.0) Basophils (%) (Auto) 0.5 % (0.0-2.0) Neutrophils # (Auto) 11.5 TH/MM3 (1.8-7.7) Lymphocytes # (Auto) 1.6 TH/MM3 (1.0-4.8) Monocytes # (Auto) 0.8 TH/MM3 (0-0.9) Eosinophils # (Auto) 0.0 TH/MM3 (0-0.4) Basophils # (Auto) 0.1 TH/MM3 (0-0.2) CBC Comment AUTO DIFF Differential Comment AUTO DIFF CONFIRMED Platelet Estimate NORMAL (NORMAL) Platelet Morphology Comment NORMAL (NORMAL) Red Cell Morphology Comment NORMAL (NORMAL) Blood Urea Nitrogen 15 MG/DL (7-18) Creatinine 0.70 MG/DL (0.60-1.30) Random Glucose 109 MG/DL (74-106) Total Protein 8.3 GM/DL (6.4-8.2) Albumin 3.2 GM/DL (3.4-5.0) Calcium Level 9.1 MG/DL (8.5-10.1) Alkaline Phosphatase 93 U/L (45-117) Aspartate Amino Transf (AST/SGOT) 16 U/L (15-37) Alanine Aminotransferase (ALT/SGPT) 32 U/L (12-78) Total Bilirubin 0.2 MG/DL (0.2-1.0) Sodium Level 135 MEQ/L (136-145) Potassium Level 4.6 MEQ/L (3.5-5.1) Chloride Level 98 MEQ/L (98-107) Carbon Dioxide Level 32.4 MEQ/L (21.0-32.0) Anion Gap 5 MEQ/L (5-15) Estimat Glomerular Filtration Rate 145 ML/MIN (>89) Result Diagram: 01/20/18 0329 01/20/18 0329 Microbiology Microbiology Date/Time Source Procedure Growth Status 12/29/17 18:21 Blood Peripheral Aerobic Blood Culture - Final NO GROWTH IN 5 DAYS Complete 12/29/17 18:21 Blood Peripheral Anaerobic Blood Culture - Final NO GROWTH IN 5 DAYS Complete 01/14/18 18:00 Sputum Expectorated Sputum Gram Stain - Final Complete 01/14/18 18:00 Sputum Expectorated Sputum Sputum Culture - Final HEAVY GROWTH NORMAL RESPIRATORY MAKSIM Complete 12/29/17 17:00 Urine Catheterized Urine Legionella Antigen - Final PRESUMPTIVE NEGATIVE FOR LEGIONELLA P... Complete 12/29/17 17:00 Urine Catheterized Urine Streptococcus pneumoniae Antigen (M - Final PRESUMPTIVE NEGATIVE FOR STREPTOCOCCU... Complete Imaging Last Impressions Chest X-Ray 01/20/18 0600 Signed Impressions: Service Date/Time: Saturday, January 20, 2018 03:58 - CONCLUSION: Reduction in the size of the left pneumothorax with chest catheter in place. Residual pneumothoraces present subpulmonic and in the upper medial left chest. Inder Herrera MD Tunnelled Chest Tube Removal 01/18/18 0000 Signed Impressions: Service Date/Time: Thursday, January 18, 2018 00:00 - CONCLUSION: Uncomplicated chest tube removal. Arnoldo Gonzalez MD Chest Tube Insertion 01/18/18 0000 Signed Impressions: Service Date/Time: Thursday, January 18, 2018 10:34 - CONCLUSION: Uncomplicated chest tube placement as above. Arnoldo Gonzalez MD Procedures 01/11: Left pigtail chest tube placement. 01/11: Endotracheal intubation 01/18: Replacement of left pigtail chest tube . Assessment and Plan Disease Oriented Problem List: (1) HTN (hypertension) (2) Recurrent spontaneous pneumothorax (3) Pulmonary fibrosis (4) COPD (chronic obstructive pulmonary disease) Symptom Scale: (1) Dyspnea and respiratory abnormalities 0-10 Scale: 5 (2) Weakness 0-10 Scale: 5 Pertinent Non-Medical Issues Psychosocial:He was [place] in [place] and finished high school there. 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 He was once and after 2 children. He has 1 son and 1 daughter. He was not in the . Spiritual: He was raised as a Jehovah witness but is nonpracticing. Legal: No legal issues noted. Ethical issues impacting care: No ethical issues impacting care. . Important Contacts Sister: Blanca Rodney ([phone] Mother: Precious Echeverria Aunt: Lilia Nicole: Son: Robin Dos Santos (estranged) Daughter: Karma Dos Santos Prognosis His prognosis is guarded. He is having recurrent pneumothoraces and has failed bleb resection and decortication. He has severe pulmonary fibrosis as well as COPD, pneumonitis and bronchiectasis. He was declined by [facility] for valve versus transplant. He is at high risk for further complications and decline. . Code Status: Full Code Plan PLAN: Legal decision maker: Patient is currently capacitated to make his own healthcare decisions. He has at this time declining to name a healthcare surrogate pending his further consideration. Per [place] statute he is aware that that would make his children healthcare proxies, if they wished to serve, in case of his incapacitation. Goals: Aggressive. CODE STATUS: FULL CODE SYMPTOMS: * Dyspnea - his dyspnea is improving with the reexpansion of his left lung, now that the chest tube has been repositioned. He is mildly tachypneic with a respiratory rate about 24. He is able to converse without significant dyspnea. He remains on 2 L nasal cannula. Chest tube remains to -40 suction with positive air leak. Given the severity of his pulmonary fibrosis, recurrent spontaneous pneumothoraces and recent pneumonia he is at risk of continued dyspnea and recurrent respiratory compromise. Waiter/Waitress Informal service is coordinating with Dr. Santos to investigate tertiary centers for endobronchial valve placement and workup for lung transplant. * Weakness - he has been hospitalized a significant portion of the last 6 months resulting in debility. He has been too hypoxic to work with physical therapy and after his transfer to ICU on 01/11, physical therapy was suspended. As his chest tube is now reexpanding the lung, would recommend reordering physical therapy services. Palliative care will continue to follow the patient during hospital course as condition evolves, to assist patient/decision-maker with understanding of their medical conditions, weighing benefits/burdens of treatment options, for clarification of goals of treatment. Additionally will assist with any symptoms of palliative concern. . Attestation To help prompt me to consider important information that might be impacting today's encounter and assessment, information from prior notes written by myself or my colleagues may have been "brought forward" into today's note. My signature on this note, however, is an attestation that I personally performed the exam, history, and/or decision-making noted today, and, unless otherwise indicated, the interactions with patient, family, and staff as well as the review of records all occurred today. I also attest that the listed assessment and stated plan reflect my best clinical judgment today based on the combination of historical information, prior notes, and today's exam/ interactions. When time spent is documented, it refers only to time spent today by the signer, or if indicated, combined time spent today by collaborating physician/nurse practitioner. . Jessica Cabrera Jan 20, 2018 10:31
--- NOTE | 2018-01-20 13:14 | HHI.PR ---
Subjective Remarks Feels OK. Had a New chest tube inserted on left. Still some air leak. Now on O2 N/C 2 L.On solumedrol. CXR shows a Stable medial left loculated Pneumothorax. Lateral Pneumo resolved. Objective Vital Signs Date Time Temp Pulse Resp B/P (MAP) Pulse Ox O2 Delivery O2 Flow Rate FiO2 01/20/18 11:40 30 01/20/18 07:54 30 01/20/18 07:38 100 Nasal Cannula 2.00 01/20/18 06:00 73 01/20/18 04:00 76 01/20/18 04:00 97.4 76 22 106/74 (85) 100 01/20/18 03:11 99 Nasal Cannula 2.00 01/20/18 02:00 73 01/20/18 00:00 98.9 83 18 122/88 (99) 98 01/20/18 00:00 83 01/19/18 22:00 98 01/19/18 21:30 100 Nasal Cannula 2.00 01/19/18 20:00 98.1 98 18 128/69 (88) 98 01/19/18 20:00 93 01/19/18 19:00 97 Nasal Cannula 2.00 01/19/18 18:00 76 01/19/18 16:00 98.6 100 20 137/90 (106) 100 01/19/18 16:00 76 01/19/18 14:00 86 I/O 01/19/18 01/19/18 01/19/18 01/20/18 01/20/18 01/20/18 06:59 14:59 22:59 06:59 14:59 22:59 Intake Total 720 ml 600 ml 400 ml Output Total 550 ml 920 ml 990 ml Balance 170 ml -320 ml -590 ml Intake Oral 720 ml 600 ml 400 ml Output Urine Total 550 ml 900 ml 950 ml Drainage Total 0 ml 20 ml 40 ml # Bowel Movements 0 0 Result Diagram: 01/20/189 01/20/18328 Objective Remarks GENERAL: This is a well-built middle-aged man who is awake and on O2. No pallor or icterus, or edema. HEAD, EYES, EARS, NOSE, THROAT: Head normocephalic. The pupils are reactive and equal. T Throat clear. NECK: The neck is supple. No venous distention. CHEST: Decreased breath sounds over the left mid and upper chest with occ crackles at the lung bases.Chest Tube is in left chest. HEART: Heart sounds are regular. S1 and S2. No murmur. No S3. ABDOMEN: Abdomen soft and without masses. No organomegaly or tenderness. The bowel sounds are active. EXTREMITIES: No lesions. No edema. NEUROLOGIC: Reflexes are 1 +. SKIN: No lesions. Assessment and Plan Assessment and Plan IMPRESSION: 1. Recurrent left pneumothorax with hypoxemia. 2. COPD and chronic bronchitis with bronchiectasis. 3. Basilar pulmonary fibrosis. 4. Hypertension. 5. Respiratory failure Plan : 1. IR consult for Chest tube in Left loculated Pneumothorax 2. Wean O2 to 2 L 3. CXR in am 4. Duonebs qid. 5. Up in room as tolerated 6. IS at bedside q3h 7. Cont solumedrol 40 mg BID 8. D/W Prerna Brewer MD Jan 20, 2018 13:14
--- NOTE | 2018-01-20 15:15 | RADRPT ---
EXAM DATE/TIME: 01/20/2018 13:10 [facility] COMPARISON : INDICATIONS : Evaluate for chest tube placement At present, the patient has a single IR placed thoracostomy tube in the lateral left chest. It is a 1 2 Turkmen pigtail thoracostomy tube which has resulted in near-complete reexpansion of the patient's p neumothorax. I do not see any significant basilar pneumothorax and the lucency in the medial left ape x represents confluence of emphysematous blebs. The tube was evaluated at the bedside and appears to be functioning normally. At this point, I see no reason to consider placement of an additional tube o r manipulate the existing tube, rather continue with 40 cm Pleur-evac suction. We don't have anything additional to offer the patient at this point. Arnoldo Gonzalez MD on January 20, 2018 at 15:10 Board Certified Radiologist. This report was verified electronically.
[2018-01-20] MEDS: ALPRAZolam 0.25 MG TAB PO PRN (17:14)
[2018-01-20] MEDS: REMOVE OLD LIDOCAINE PATCH T-DERMAL SCH (21:00)
[2018-01-21] VITALS (14 sets, daily range): BP systolic 98–116; BP diastolic 68–77; PULSE 54–94; RESP 15–27; TEMP 97.9–98.6; O2SAT 92–100
[2018-01-21] MEDS: guaiFENesin/CODEINE SYRUP 200 MG/20 MG/10 ML CUP PO PRN ×4 (01:11→19:29)
[2018-01-21 01:41] LABS: TROPONIN I LESS THAN 0.02 NG/ML (0.02-0.05)
[2018-01-21] MEDS: ALPRAZolam 0.25 MG TAB PO PRN ×3 (05:55→21:56)
[2018-01-21] MEDS: CHLORHEXIDINE 0.12% (ORAL KIT) 15 ML CUP MT SCH ×2 (08:00→20:00)
--- NOTE | 2018-01-21 08:45 | HHI.CCPN ---
Subjective Remarks/Hospital Course 47-year-old male with a past medical history significant for pulmonary fibrosis , COPD and hypertension and VATS/bleb resection/pleurodesis by Dr. Amanda on 08/23 is admitted to hospital with increased shortness of breath. Chart documentation for the past 24 hours prior to admission he has had significant fever/chills and increasing shortness of breath. Patient was found to have a left-sided pneumothorax on chest x-ray. The chest tube was placed and patient was admitted to medicine with pulmonary consultation in place. Today shortly after midnight the chest tube was found at the patient's bedside the dislodged, patient was in severe respiratory distress, diaphoretic and hypoxemic. The stat x-ray showed reaccumulation of left-sided pneumothorax and emergent chest tube was placed. 12/30 - resting in bed on 6 nasal cannula. Complaining of sore throat. Cough. Pneumothorax last left-sided similar size in reviewing chest x-ray this AM. Discussed with Dr. Blunt and patient 12/31: Resting in bed on nasal cannula. 6 L. Sore throat better controlled with Chloraseptic [place]. Small left sided pneumothorax similar in size from yesterday. Maintaining positive attitude. 01/01: no change. still quite dyspneic. on 6L and intermittently NRB. no new complaints. 01/02: Intermittent requiring nasal cannula versus nonrebreather mask. Remain short of breath. Small air leak persists. -40 cm H2O 01/03: Currently on nasal cannula 6 L. Appears depressed. Small air leak persists 1-2 chambers. -40 cm H2O. 01/04: Remains on nasal cannula 6 L. Switch is off and on between nonrebreather nasal cannula. Air leak persists. Pulmonology is okay with transfer to floor. 01/11: Per report, pigtail catheter placed earlier during hospitalization came out last night. Earlier this AM, patient with worsening respiratory distress, requiring NRM, with PO2 in the 50's. Stat CXR showing left sided pneumothorax. After discussing with patient, he was intubated and simultaneously had a left sided pigtail catheter placed. Currently, mechanically ventilated, Pip mid 20's synchronized with the vent. Chest tube at -40 with air leak. 01/12: No events over the night. Patient doing better, shortness of breath significantly improved, complaining of some chest pain over the chest tube site. Eyes feel better, no visual disturbances, no double vision, very happy with artificial tears. Better spirits. Left-sided chest tube with continuous air leak on suction at -40. He remains on high flow nasal cannula at 0.4 FiO2 and 35 L/min, with O2 sat of 100%. Morning chest x-ray reviewed, mild improvement in left-sided pneumothorax, unchanged infiltrates bilateral worse on the right. 01/13: Patient was weaned off to 6 L nasal cannula last evening over the night he required to be placed back on high flow due to desaturation to mid 80s. This morning he continues to require high flow nasal cannula flow increased from 25-35 L/min due to low O2 sat currently at 40% with sats in the 90s. Otherwise he feels a little better still complaining of some left-sided chest pain due to chest tube shortness of breath unchanged, eye discomfort significantly improved. Chest tube on suction at -40 with continuous air leak. T-max 99.2. 01/14: No events overnight. Patient still requiring high flow nasal cannula at 20 L/min and FiO2 of 0.4 with O2 sats in the mid 90s. Continuous continuous air leak on suction at -40 from a left-sided chest tube. Patient feels better, shortness of breath slightly improved, coughing, bringing up yellow-green sputum. No other complaints, good spirits. T-max 99.7. Morning chest x-ray reviewed, left-sided loculated pneumothorax unchanged. Still with persistent bilateral infiltrates, right worse than left. 01/15: No events overnight. Patient on high flow nasal cannula 20 L/min FiO2 of 0.3, tapering it down. Still some left-sided chest pain on the pigtail catheter. No other complaints. Morning chest x-ray reviewed, left-sided loculated pneumothorax is unchanged as well as persistent bilateral infiltrates. Chest tube to suction at -40 with continuous air leak. 01/16: no changes. remains on high flow NC. no improvements. chest tube to suction. 01/17: down to 6L o2 by NC today. no air leak on CT. still complaints of stable dyspnea. 01/18: No air leak but lung remains incompletely expanded left side. Will need to check tube for plug or replace. 01/19: Chest tube up sized yesterday, but loculated pneumothorax persists, with midline shift. Dr. Amanda to reevaluate per Dr. Hidalgo's notes 01/20: It may be worth targeting the isolated upper medial pneumothorax on the left to see if we can get the pleural space stuck up. 01/21: Air leak persists left. Conversational dyspnea persists. Objective Vital Signs Date Time Temp Pulse Resp B/P (MAP) Pulse Ox O2 Delivery O2 Flow Rate FiO2 01/21/18 06:00 90 01/21/18 04:00 98.0 20 106/72 (83) 100 01/20/18 21:37 Nasal Cannula 2.00 Intake and Output 01/21/18 01/21/18 01/22/18 08:00 16:00 00:00 Intake Total 800 ml Output Total 1190 ml Balance -390 ml Result Diagram: 01/20/18 0329 01/20/18 0329 Imaging Last 24 hours Impressions Chest X-Ray 01/15/18 0600 Signed Impressions: Service Date/Time: Monday, January 15, 2018 04:03 - CONCLUSION: No change right greater than left pulmonary opacities and moderate sized loculated left pneumothorax with mediastinal shift. Arnoldo Christensen MD Last Impressions Chest X-Ray 01/14/18 0400 Signed Impressions: Service Date/Time: Sunday, January 14, 2018 04:39 - CONCLUSION: Moderate-sized loculated left pneumothorax persists and with mediastinal shift not significantly changed. Arnoldo Christensen MD Last Impressions Chest X-Ray 01/13/18 0400 Signed Impressions: Service Date/Time: Saturday, January 13, 2018 04:30 - CONCLUSION: 1. Loculated moderate size left pneumothorax with mediastinal shift. Left chest tube remains in place. 2. Diffuse bilateral airspace opacities persist. Arnoldo Christensen MD Last Impressions Chest X-Ray 01/12/18 0400 Signed Impressions: Service Date/Time: December 05:18 - CONCLUSION: 1. Mild interval improvement in left pneumothorax. Mediastinal shift to the right remains. 2. Diffuse airspace disease remains right greater than left. Saleem Mejia MD Procedures Chest tube placement Endotracheal tube placement Objective Remarks General - middle age gentleman, awake, alert, in no distress. On NC 2L HEENT - pupils equal, reactive, sclerae anicteric, neck supple, moist mucous membranes CV - regular heart sounds, no murmurs, rubs or gallops, no JVD. Chest -scattered coarse breath sounds bilateral, decreased sounds left side, no wheezes, left-sided pigtail catheter in place, 1+ air leak. Abdomen - soft, non-tender, not distended, BS present. no guarding. Extremities - no edema, + peripheral pulses Neuro - awake alert and oriented 3, moves all extremities A/P Problem List: (1) Migraine headache ICD Code: G43.909 - Migraine, unspecified, not intractable, without status migrainosus Status: Chronic (2) Spontaneous pneumothorax ICD Code: J93.83 - Other pneumothorax Status: Acute (3) Recurrent spontaneous pneumothorax ICD Code: J93.83 - Other pneumothorax Status: Acute (4) COPD exacerbation ICD Code: J44.1 - Chronic obstructive pulmonary disease with (acute) exacerbation Status: Acute (5) Pulmonary fibrosis ICD Code: J84.10 - Pulmonary fibrosis, unspecified Status: Chronic Assessment and Plan 1. Acute hypoxic respiratory failure - requiring intubation and mechanical ventilation, now extubated 2. 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 COPD, chronic bronchitis with bronchiectasis 4. Pulmonary fibrosis 5. HTN 1. Wean FiO2 to keep oxygen saturation more than 88%, currently on 2 L nasal cannula 2. Bronchodilators 3. Continue chest tube to suction at -40. s/p chest tube up sizing by IR 4. Daily chest x-ray 5. s/p full course Augmentin. 6. Continue Solu-Medrol 40 mg IV every 6 hours per pulmonary 7. On antihypertensives with amlodipine and metoprolol 8. Artificial tears as needed 9. low-dose Xanax as needed for anxiety -discussed with the patient and he agrees 10. GI/DVT prophylaxis 11. Have discussed extensively with patient, Dr. Coy and . patient still not a candidate for CT surgery here due to friable tissue. most likely would benefit from permanent valve, but more-over, needs work-up for transplant, as his lung disease is fairly rapidly progressive. will continue to look for transplant centers with the ability to work the patient up for transplant. Plan second tube to evacuate the loculated upper middle space and hopefully get the pleural surfaces stuck together. Problem Qualifiers (1) Migraine headache: Qualified Codes: G43.009 - Migraine without aura, not intractable, without status migrainosus Neal Brennan MD Jan 21, 2018 08:45
--- NOTE | 2018-01-21 08:57 | EKG ---
Date Performed: 01/21/2018 Time Performed: 06:03:48 PTAGE: 47 years EKG: Sinus rhythm . Normal ECG NO PREVIOUS TRACING DOCTOR: Leonid Christensen Interpretating Date/Time 01/21/2018 08:55:33
--- NOTE | 2018-01-21 08:59 | EKG ---
Date Performed: 01/21/2018 Time Performed: 00:02:50 PTAGE: 47 years EKG: Sinus rhythm . Lateral ST elevation, CONSIDER ACUTE INFARCT vs early repolarization Abnormal ECG NO PREVIOUS TRACING DOCTOR: Leonid Christensen Interpretating Date/Time 01/21/2018 08:58:09
[2018-01-21] MEDS: TIOTROPIUM BROMIDE 18 MCG INH INH SCH (09:00)
[2018-01-21] MEDS: BUDESONIDE-FORMOTEROL 160/4.5 MCG INHALER INH SCH ×2 (09:00→21:00)
[2018-01-21] MEDS: SODIUM CHLORIDE 0.9% FLUSH 10 ML FLUSH IV FLUSH SCH ×2 (09:00→21:00)
[2018-01-21] MEDS: guaiFENesin E.R. 600 MG TAB PO SCH ×2 (09:00→21:00)
[2018-01-21] MEDS: LIDOCAINE HCL 5% PATCH T-DERMAL SCH (09:36)
[2018-01-21] MEDS: methylPREDNISolone SOD SUCC 40 MG/1 ML VIAL IV PUSH SCH ×2 (09:36→21:55)
[2018-01-21] MEDS: HYDROmorphone HCL PF 2 MG/ML VIAL IV PUSH PRN ×2 (09:36→18:50)
[2018-01-21] MEDS: METOPROLOL TARTRATE 25 MG TAB PO SCH ×2 (09:36→21:55)
[2018-01-21] MEDS: ENOXAPARIN SODIUM 40 MG/0.4 ML SYRINGE SQ SCH (09:37)
[2018-01-21] MEDS: FAMOTIDINE 20 MG/2 ML VIAL IV PUSH SCH ×2 (09:37→21:00)
[2018-01-21] MEDS: DOCUSATE SODIUM 50 MG/SENNA 8.6 MG TAB PO SCH ×2 (09:37→21:55)
[2018-01-21] MEDS ORDERED: ACETAMINOPHEN/HYDROcodone 325 MG/7.5 MG TAB PO PRN (12:45)
--- NOTE | 2018-01-21 15:34 | HHI.PR ---
Subjective Remarks Feels OK. Had a New chest tube inserted on left. Still some air leak. Now on O2 N/C 2 L. Needs a New 2 nd Chest tube on left CXR shows a Stable medial left loculated Pneumothorax. Lateral Pneumo resolved. Objective Vital Signs Date Time Temp Pulse Resp B/P (MAP) Pulse Ox O2 Delivery O2 Flow Rate FiO2 01/21/18 14:27 19 01/21/18 10:35 29 01/21/18 09:45 97 Nasal Cannula 2.00 01/21/18 06:00 90 01/21/18 04:00 54 01/21/18 04:00 98.0 64 20 106/72 (83) 100 01/21/18 02:00 90 01/21/18 00:00 62 01/21/18 00:00 97.9 62 15 98/70 (79) 100 01/20/18 22:00 74 01/20/18 21:37 100 Nasal Cannula 2.00 01/20/18 20:00 98.1 80 19 123/58 (79) 100 01/20/18 20:00 73 01/20/18 19:00 99 Nasal Cannula 2.00 01/20/18 18:00 73 01/20/18 16:00 97.8 80 30 114/66 (82) 100 01/20/18 16:00 80 I/O 01/20/18 01/20/18 01/20/18 01/21/18 01/21/18 01/21/18 07:00 15:00 23:00 07:00 15:00 23:00 Intake Total 400 ml 540 ml 800 ml Output Total 990 ml 1700 ml 1190 ml Balance -590 ml -1160 ml -390 ml Intake Oral 400 ml 540 ml 800 ml Output Urine Total 950 ml 1650 ml 1150 ml Chest Tube Drainage Total 0 ml Drainage Total 40 ml 50 ml 40 ml # Bowel Movements 0 1 Result Diagram: 01/20/18 0329 01/20/18 0329 Objective Remarks GENERAL: This is a well-built middle-aged man who is awake and on O2. No pallor or icterus, or edema. HEAD, EYES, EARS, NOSE, THROAT: Head normocephalic. The pupils are reactive and equal. T Throat clear. NECK: The neck is supple. No venous distention. CHEST: Decreased breath sounds over the left mid and upper chest with occ crackles at the lung bases.Chest Tube is in left chest. HEART: Heart sounds are regular. S1 and S2. No murmur. No S3. ABDOMEN: Abdomen soft and without masses. No organomegaly or tenderness. The bowel sounds are active. EXTREMITIES: No lesions. No edema. NEUROLOGIC: Reflexes are 1 +. SKIN: No lesions. Assessment and Plan Assessment and Plan IMPRESSION: 1. Recurrent left pneumothorax with hypoxemia. 2. COPD and chronic bronchitis with bronchiectasis. 3. Basilar pulmonary fibrosis. 4. Hypertension. 5. Respiratory failure Plan : 1. IR consult for Chest tube in Left loculated Pneumothorax on Tuesday 2. Wean O2 to 2 L 3. CBC Coags in am 4. Duonebs qid. 5. Up in room as tolerated 6. IS at bedside q3h 7. Cont solumedrol 40 mg BID 8. D/W Prerna Brewer MD Jan 21, 2018 15:34
[2018-01-21] MEDS: REMOVE OLD LIDOCAINE PATCH T-DERMAL SCH (21:00)
[2018-01-22] VITALS (14 sets, daily range): BP systolic 97–111; BP diastolic 56–80; PULSE 68–104; RESP 14–19; TEMP 97.8–98.3; O2SAT 88–100
[2018-01-22] MEDS: guaiFENesin/CODEINE SYRUP 200 MG/20 MG/10 ML CUP PO PRN ×3 (01:34→21:55)
[2018-01-22] MEDS: HYDROmorphone HCL PF 2 MG/ML VIAL IV PUSH PRN ×3 (03:34→22:45)
--- NOTE | 2018-01-22 07:48 | HHI.CCPN ---
Subjective Remarks/Hospital Course 47-year-old male with a past medical history significant for pulmonary fibrosis , COPD and hypertension and VATS/bleb resection/pleurodesis by Dr. Amanda on 08/23 is admitted to hospital with increased shortness of breath. Chart documentation for the past 24 hours prior to admission he has had significant fever/chills and increasing shortness of breath. Patient was found to have a left-sided pneumothorax on chest x-ray. The chest tube was placed and patient was admitted to medicine with pulmonary consultation in place. Today shortly after midnight the chest tube was found at the patient's bedside the dislodged, patient was in severe respiratory distress, diaphoretic and hypoxemic. The stat x-ray showed reaccumulation of left-sided pneumothorax and emergent chest tube was placed. 12/30 - resting in bed on 6 nasal cannula. Complaining of sore throat. Cough. Pneumothorax last left-sided similar size in reviewing chest x-ray this AM. Discussed with Dr. Blunt and patient 12/31: Resting in bed on nasal cannula. 6 L. Sore throat better controlled with Chloraseptic [place]. Small left sided pneumothorax similar in size from yesterday. Maintaining positive attitude. 01/01: no change. still quite dyspneic. on 6L and intermittently NRB. no new complaints. 01/02: Intermittent requiring nasal cannula versus nonrebreather mask. Remain short of breath. Small air leak persists. -40 cm H2O 01/03: Currently on nasal cannula 6 L. Appears depressed. Small air leak persists 1-2 chambers. -40 cm H2O. 01/04: Remains on nasal cannula 6 L. Switch is off and on between nonrebreather nasal cannula. Air leak persists. Pulmonology is okay with transfer to floor. 01/11: Per report, pigtail catheter placed earlier during hospitalization came out last night. Earlier this AM, patient with worsening respiratory distress, requiring NRM, with PO2 in the 50's. Stat CXR showing left sided pneumothorax. After discussing with patient, he was intubated and simultaneously had a left sided pigtail catheter placed. Currently, mechanically ventilated, Pip mid 20's synchronized with the vent. Chest tube at -40 with air leak. 01/12: No events over the night. Patient doing better, shortness of breath significantly improved, complaining of some chest pain over the chest tube site. Eyes feel better, no visual disturbances, no double vision, very happy with artificial tears. Better spirits. Left-sided chest tube with continuous air leak on suction at -40. He remains on high flow nasal cannula at 0.4 FiO2 and 35 L/min, with O2 sat of 100%. Morning chest x-ray reviewed, mild improvement in left-sided pneumothorax, unchanged infiltrates bilateral worse on the right. 01/13: Patient was weaned off to 6 L nasal cannula last evening over the night he required to be placed back on high flow due to desaturation to mid 80s. This morning he continues to require high flow nasal cannula flow increased from 25-35 L/min due to low O2 sat currently at 40% with sats in the 90s. Otherwise he feels a little better still complaining of some left-sided chest pain due to chest tube shortness of breath unchanged, eye discomfort significantly improved. Chest tube on suction at -40 with continuous air leak. T-max 99.2. 01/14: No events overnight. Patient still requiring high flow nasal cannula at 20 L/min and FiO2 of 0.4 with O2 sats in the mid 90s. Continuous continuous air leak on suction at -40 from a left-sided chest tube. Patient feels better, shortness of breath slightly improved, coughing, bringing up yellow-green sputum. No other complaints, good spirits. T-max 99.7. Morning chest x-ray reviewed, left-sided loculated pneumothorax unchanged. Still with persistent bilateral infiltrates, right worse than left. 01/15: No events overnight. Patient on high flow nasal cannula 20 L/min FiO2 of 0.3, tapering it down. Still some left-sided chest pain on the pigtail catheter. No other complaints. Morning chest x-ray reviewed, left-sided loculated pneumothorax is unchanged as well as persistent bilateral infiltrates. Chest tube to suction at -40 with continuous air leak. 01/16: no changes. remains on high flow NC. no improvements. chest tube to suction. 01/17: down to 6L o2 by NC today. no air leak on CT. still complaints of stable dyspnea. 01/18: No air leak but lung remains incompletely expanded left side. Will need to check tube for plug or replace. 01/19: Chest tube up sized yesterday, but loculated pneumothorax persists, with midline shift. Dr. Amanda to reevaluate per Dr. Hidalgo's notes 01/20: It may be worth targeting the isolated upper medial pneumothorax on the left to see if we can get the pleural space stuck up. 01/21: Air leak persists left. Conversational dyspnea persists. 01/22: Discussed with Dr. Hidalgo. If possible for IR will try to evacuate right upper medii, consider re-sclerosis. Objective Vital Signs Date Time Temp Pulse Resp B/P (MAP) Pulse Ox O2 Delivery O2 Flow Rate FiO2 01/22/18 06:00 68 01/22/18 04:00 98.0 14 98/66 (77) 100 01/21/18 21:14 Nasal Cannula 2.00 Intake and Output 01/22/18 01/22/18 01/23/18 08:00 16:00 00:00 Intake Total 480 ml Output Total 1010 ml Balance -530 ml Result Diagram: 01/20/18 0329 01/20/18 0329 Imaging Last 24 hours Impressions Chest X-Ray 01/15/18 0600 Signed Impressions: Service Date/Time: Monday, January 15, 2018 04:03 - CONCLUSION: No change right greater than left pulmonary opacities and moderate sized loculated left pneumothorax with mediastinal shift. Arnoldo Christensen MD Last Impressions Chest X-Ray 01/14/18 0400 Signed Impressions: Service Date/Time: Sunday, January 14, 2018 04:39 - CONCLUSION: Moderate-sized loculated left pneumothorax persists and with mediastinal shift not significantly changed. Arnoldo Christensen MD Last Impressions Chest X-Ray 01/13/18 0400 Signed Impressions: Service Date/Time: Saturday, January 13, 2018 04:30 - CONCLUSION: 1. Loculated moderate size left pneumothorax with mediastinal shift. Left chest tube remains in place. 2. Diffuse bilateral airspace opacities persist. Arnoldo Christensen MD Last Impressions Chest X-Ray 01/12/18 0400 Signed Impressions: Service Date/Time: December 05:18 - CONCLUSION: 1. Mild interval improvement in left pneumothorax. Mediastinal shift to the right remains. 2. Diffuse airspace disease remains right greater than left. Saleem Mejia MD Procedures Chest tube placement Endotracheal tube placement Objective Remarks General - middle age gentleman, awake, alert, in no distress. On NC 2L HEENT - pupils equal, reactive, sclerae anicteric, neck supple, moist mucous membranes CV - regular heart sounds, no murmurs, rubs or gallops, no JVD. Chest -scattered coarse breath sounds bilateral, decreased sounds left side, no wheezes, left-sided pigtail catheter in place, 2+ air leak. Abdomen - soft, non-tender, not distended, BS present. no guarding. Extremities - no edema, + peripheral pulses Neuro - awake alert and oriented 3, moves all extremities, conversant. A/P Problem List: (1) Migraine headache ICD Code: G43.909 - Migraine, unspecified, not intractable, without status migrainosus Status: Chronic (2) Spontaneous pneumothorax ICD Code: J93.83 - Other pneumothorax Status: Acute (3) Recurrent spontaneous pneumothorax ICD Code: J93.83 - Other pneumothorax Status: Acute (4) COPD exacerbation ICD Code: J44.1 - Chronic obstructive pulmonary disease with (acute) exacerbation Status: Acute (5) Pulmonary fibrosis ICD Code: J84.10 - Pulmonary fibrosis, unspecified Status: Chronic Assessment and Plan Assessment: 1. Acute hypoxic respiratory failure - requiring intubation and mechanical ventilation, now extubated 2. 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 COPD, chronic bronchitis with bronchiectasis 4. Pulmonary fibrosis 5. HTN Plan: 1. Wean FiO2 to keep oxygen saturation more than 88%, currently on 2 L nasal cannula 2. Bronchodilators 3. Continue chest tube to suction at -40. s/p chest tube up sizing by IR 4. Daily chest x-ray 5. s/p full course Augmentin. 6. Continue Solu-Medrol 40 mg IV every 6 hours per pulmonary 7. On antihypertensives with amlodipine and metoprolol 8. Artificial tears as needed 9. low-dose Xanax as needed for anxiety -discussed with the patient and he agrees 10. GI/DVT prophylaxis 11. Have discussed extensively with patient, Dr. Coy and . patient still not a candidate for CT surgery here due to friable tissue. most likely would benefit from permanent valve, but more-over, needs work-up for transplant, as his lung disease is fairly rapidly progressive. will continue to look for transplant centers with the ability to work the patient up for transplant. Plan second tube to evacuate the loculated upper middle space and hopefully get the pleural surfaces stuck together. 12. Consider re-sclerosis left pleural space. Problem Qualifiers (1) Migraine headache: Qualified Codes: G43.009 - Migraine without aura, not intractable, without status migrainosus Neal Brennan MD Jan 22, 2018 07:48
[2018-01-22] MEDS: RESP: ALBUTEROL 2.5 MG/3 ML NEB (PRN) NEB ×3 (07:57→16:55)
[2018-01-22] MEDS: CHLORHEXIDINE 0.12% (ORAL KIT) 15 ML CUP MT SCH ×2 (08:00→20:00)
[2018-01-22] MEDS: SODIUM CHLORIDE 0.9% FLUSH 10 ML FLUSH IV FLUSH SCH ×2 (09:00→21:39)
[2018-01-22] MEDS: ENOXAPARIN SODIUM 40 MG/0.4 ML SYRINGE SQ SCH (09:00)
[2018-01-22] MEDS: DOCUSATE SODIUM 50 MG/SENNA 8.6 MG TAB PO SCH ×2 (09:00→21:38)
[2018-01-22] MEDS: LIDOCAINE HCL 5% PATCH T-DERMAL SCH (09:54)
[2018-01-22] MEDS: methylPREDNISolone SOD SUCC 40 MG/1 ML VIAL IV PUSH SCH (09:55)
[2018-01-22] MEDS: BUDESONIDE-FORMOTEROL 160/4.5 MCG INHALER INH SCH ×2 (09:55→21:39)
[2018-01-22] MEDS: METOPROLOL TARTRATE 25 MG TAB PO SCH ×2 (09:55→21:39)
[2018-01-22] MEDS: guaiFENesin E.R. 600 MG TAB PO SCH ×3 (09:55→21:38)
[2018-01-22] MEDS: FAMOTIDINE 20 MG/2 ML VIAL IV PUSH SCH ×2 (09:55→21:39)
[2018-01-22] MEDS: TIOTROPIUM BROMIDE 18 MCG INH INH SCH (09:56)
--- NOTE | 2018-01-22 14:01 | HHI.PR ---
Subjective Remarks No new complaints. Chest tube in left chest with Still some air leak. Now on O2 N/C 2 L. Needs a New 2 nd Chest tube on left . CXR shows a Stable medial left loculated Pneumothorax. Lateral Pneumo resolved. Objective Vital Signs Date Time Temp Pulse Resp B/P (MAP) Pulse Ox O2 Delivery O2 Flow Rate FiO2 01/22/18 07:54 100 Nasal Cannula 2.00 01/22/18 07:00 100 Nasal Cannula 2.00 01/22/18 06:00 68 01/22/18 04:00 98.0 72 14 98/66 (77) 100 01/22/18 04:00 72 01/22/18 02:00 86 01/22/18 00:00 82 01/22/18 00:00 98.2 82 14 101/73 (82) 100 01/21/18 22:00 84 01/21/18 21:14 100 Nasal Cannula 2.00 01/21/18 20:00 97.9 92 15 116/76 (89) 92 01/21/18 20:00 80 01/21/18 19:39 25 01/21/18 19:00 100 Nasal Cannula 2.00 01/21/18 18:00 78 01/21/18 16:00 88 01/21/18 16:00 98.6 88 27 106/68 (81) 98 01/21/18 14:27 19 01/21/18 14:00 90 I/O 01/21/18 01/21/18 01/21/18 01/22/18 01/22/18 01/22/18 07:00 15:00 23:00 07:00 15:00 23:00 Intake Total 800 ml 760 ml 480 ml Output Total 1190 ml 1625 ml 1010 ml Balance -390 ml -865 ml -530 ml Intake Oral 800 ml 760 ml 480 ml Output Urine Total 1150 ml 1575 ml 900 ml Drainage Total 40 ml 50 ml 110 ml # Voids 5 # Bowel Movements 1 1 0 Result Diagram: 01/20/189 01/20/18328 Objective Remarks GENERAL: This is a well-built middle-aged man who is awake and on O2. No pallor or icterus, or edema. HEAD, EYES, EARS, NOSE, THROAT: Head normocephalic. The pupils are reactive and equal. Throat clear. NECK: The neck is supple. No venous distention. CHEST: Decreased breath sounds over the left mid and upper chest with occ crackles at the lung bases. HEART: Heart sounds are regular. S1 and S2. No murmur. No S3. ABDOMEN: Abdomen soft and without masses. No organomegaly or tenderness. The bowel sounds are active. EXTREMITIES: No lesions. No edema. NEUROLOGIC: Reflexes are 1 +. SKIN: No lesions. Assessment and Plan Assessment and Plan IMPRESSION: 1. Recurrent left pneumothorax with hypoxemia. 2. COPD and chronic bronchitis with bronchiectasis. 3. Basilar pulmonary fibrosis. 4. Hypertension. 5. Respiratory failure Plan : 1. IR consult for Chest tube in Left loculated Pneumothorax on Tuesday 2. Wean O2 to 2 L 3. Prednisone 10 mg bid 4. Duonebs qid. 5. Up in room as tolerated 6. IS at bedside q3h 7. D/C solumedrol 8. D/W Prerna Brewer MD Jan 22, 2018 14:01
[2018-01-22] MEDS: RESP: ALBUTEROL 2.5 MG/IPRATROPIUM 0.5 MG NEB (SCH) NEB ×2 (17:00→20:41)
[2018-01-22] MEDS: predniSONE 10 MG TAB PO SCH (21:39)
[2018-01-22] MEDS: REMOVE OLD LIDOCAINE PATCH T-DERMAL SCH (23:00)
[2018-01-23] VITALS (14 sets, daily range): BP systolic 96–113; BP diastolic 59–84; PULSE 67–104; RESP 13–21; TEMP 97.5–98.7; O2SAT 95–100
[2018-01-23] MEDS: HYDROmorphone HCL PF 2 MG/ML VIAL IV PUSH PRN ×3 (01:33→14:40)
--- NOTE | 2018-01-23 02:58 | RADRPT ---
EXAM DATE/TIME: 01/23/2018 02:16 [place] COMPARISON: CHEST SINGLE AP, January 20, 2018, 3:58. INDICATIONS : Chest tube placement. Expiration chest. MEDICAL HISTORY : None. SURGICAL HISTORY : Chest tube. ENCOUNTER: Initial ACUITY: 2 days PAIN SCORE: 10/10 LOCATION: Bilateral chest FINDINGS: Portable AP view of the chest demonstrates a normal-sized cardiac silhouette. Lungs are underinflated . There is possible pleural air laterally adjacent to the chest tube, similar to the prior study. No significant change is appreciated. There is left lung staple line at the left lung apex. There is donnell ateral airspace consolidation, right greater than left. Mild left chest wall subcutaneous air is pres ent. CONCLUSION: 1. Left chest tube remains present. There may be a small amount of pleural air loculated laterally in the left mid hemithorax. The apex of the left hemithorax is stable and may be related to bulla. 2. Diffuse bilateral airspace consolidation. Arnoldo Cheatham MD on January 23, 2018 at 2:55 Board Certified Radiologist. This report was verified electronically.
[2018-01-23] MEDS: RESP: ALBUTEROL 2.5 MG/IPRATROPIUM 0.5 MG NEB (SCH) NEB ×4 (03:30→19:34)
[2018-01-23] MEDS: KETOROLAC TROMETHAMINE 30 MG/ML (IVP) VIAL IV PUSH SCH ×3 (05:27→18:00)
[2018-01-23] MEDS: CHLORHEXIDINE 0.12% (ORAL KIT) 15 ML CUP MT SCH ×2 (08:00→20:00)
--- NOTE | 2018-01-23 08:30 | HHI.CCPN ---
Subjective Remarks/Hospital Course 47-year-old male with a past medical history significant for pulmonary fibrosis , COPD and hypertension and VATS/bleb resection/pleurodesis by Dr. Amanda on 08/23 is admitted to hospital with increased shortness of breath. Chart documentation for the past 24 hours prior to admission he has had significant fever/chills and increasing shortness of breath. Patient was found to have a left-sided pneumothorax on chest x-ray. The chest tube was placed and patient was admitted to medicine with pulmonary consultation in place. Today shortly after midnight the chest tube was found at the patient's bedside the dislodged, patient was in severe respiratory distress, diaphoretic and hypoxemic. The stat x-ray showed reaccumulation of left-sided pneumothorax and emergent chest tube was placed. 12/30 - resting in bed on 6 nasal cannula. Complaining of sore throat. Cough. Pneumothorax last left-sided similar size in reviewing chest x-ray this AM. Discussed with Dr. Blunt and patient 12/31: Resting in bed on nasal cannula. 6 L. Sore throat better controlled with Chloraseptic [place]. Small left sided pneumothorax similar in size from yesterday. Maintaining positive attitude. 01/01: no change. still quite dyspneic. on 6L and intermittently NRB. no new complaints. 01/02: Intermittent requiring nasal cannula versus nonrebreather mask. Remain short of breath. Small air leak persists. -40 cm H2O 01/03: Currently on nasal cannula 6 L. Appears depressed. Small air leak persists 1-2 chambers. -40 cm H2O. 01/04: Remains on nasal cannula 6 L. Switch is off and on between nonrebreather nasal cannula. Air leak persists. Pulmonology is okay with transfer to floor. 01/11: Per report, pigtail catheter placed earlier during hospitalization came out last night. Earlier this AM, patient with worsening respiratory distress, requiring NRM, with PO2 in the 50's. Stat CXR showing left sided pneumothorax. After discussing with patient, he was intubated and simultaneously had a left sided pigtail catheter placed. Currently, mechanically ventilated, Pip mid 20's synchronized with the vent. Chest tube at -40 with air leak. 01/12: No events over the night. Patient doing better, shortness of breath significantly improved, complaining of some chest pain over the chest tube site. Eyes feel better, no visual disturbances, no double vision, very happy with artificial tears. Better spirits. Left-sided chest tube with continuous air leak on suction at -40. He remains on high flow nasal cannula at 0.4 FiO2 and 35 L/min, with O2 sat of 100%. Morning chest x-ray reviewed, mild improvement in left-sided pneumothorax, unchanged infiltrates bilateral worse on the right. 01/13: Patient was weaned off to 6 L nasal cannula last evening over the night he required to be placed back on high flow due to desaturation to mid 80s. This morning he continues to require high flow nasal cannula flow increased from 25-35 L/min due to low O2 sat currently at 40% with sats in the 90s. Otherwise he feels a little better still complaining of some left-sided chest pain due to chest tube shortness of breath unchanged, eye discomfort significantly improved. Chest tube on suction at -40 with continuous air leak. T-max 99.2. 01/14: No events overnight. Patient still requiring high flow nasal cannula at 20 L/min and FiO2 of 0.4 with O2 sats in the mid 90s. Continuous continuous air leak on suction at -40 from a left-sided chest tube. Patient feels better, shortness of breath slightly improved, coughing, bringing up yellow-green sputum. No other complaints, good spirits. T-max 99.7. Morning chest x-ray reviewed, left-sided loculated pneumothorax unchanged. Still with persistent bilateral infiltrates, right worse than left. 01/15: No events overnight. Patient on high flow nasal cannula 20 L/min FiO2 of 0.3, tapering it down. Still some left-sided chest pain on the pigtail catheter. No other complaints. Morning chest x-ray reviewed, left-sided loculated pneumothorax is unchanged as well as persistent bilateral infiltrates. Chest tube to suction at -40 with continuous air leak. 01/16: no changes. remains on high flow NC. no improvements. chest tube to suction. 01/17: down to 6L o2 by NC today. no air leak on CT. still complaints of stable dyspnea. 01/18: No air leak but lung remains incompletely expanded left side. Will need to check tube for plug or replace. 01/19: Chest tube up sized yesterday, but loculated pneumothorax persists, with midline shift. Dr. Amanda to reevaluate per Dr. Hidalgo's notes 01/20: It may be worth targeting the isolated upper medial pneumothorax on the left to see if we can get the pleural space stuck up. 01/21: Air leak persists left. Conversational dyspnea persists. 01/22: Discussed with Dr. Santos. If possible for IR will try to evacuate right upper medii, consider re-sclerosis. 01/23: Resting comfortably in bed. Continues to have small air leak. Objective Vital Signs Date Time Temp Pulse Resp B/P (MAP) Pulse Ox O2 Delivery O2 Flow Rate FiO2 01/23/18 07:16 100 Nasal Cannula 2.00 01/23/18 06:27 13 01/23/18 06:00 70 01/23/18 04:00 98.1 96/69 (78) Intake and Output 01/23/18 01/23/18 01/24/18 08:00 16:00 00:00 Intake Total 120 ml Output Total 850 ml Balance -730 ml Result Diagram: 01/20/18 0329 01/20/18 0329 Imaging Last 24 hours Impressions Chest X-Ray 01/15/18 0600 Signed Impressions: Service Date/Time: Monday, January 15, 2018 04:03 - CONCLUSION: No change right greater than left pulmonary opacities and moderate sized loculated left pneumothorax with mediastinal shift. Arnoldo Christensen MD Last Impressions Chest X-Ray 01/14/18 0400 Signed Impressions: Service Date/Time: Sunday, January 14, 2018 04:39 - CONCLUSION: Moderate-sized loculated left pneumothorax persists and with mediastinal shift not significantly changed. Arnoldo Christensen MD Last Impressions Chest X-Ray 01/13/18 0400 Signed Impressions: Service Date/Time: Saturday, January 13, 2018 04:30 - CONCLUSION: 1. Loculated moderate size left pneumothorax with mediastinal shift. Left chest tube remains in place. 2. Diffuse bilateral airspace opacities persist. Arnoldo Christensen MD Last Impressions Chest X-Ray 01/12/18 0400 Signed Impressions: Service Date/Time: December 05:18 - CONCLUSION: 1. Mild interval improvement in left pneumothorax. Mediastinal shift to the right remains. 2. Diffuse airspace disease remains right greater than left. Saleem Mejia MD Procedures Chest tube placement Endotracheal tube placement Objective Remarks General - middle age gentleman, awake, alert, in no distress. On NC 2L HEENT - pupils equal, reactive, sclerae anicteric, neck supple, moist mucous membranes CV - regular heart sounds, no murmurs, rubs or gallops, no JVD. Chest -scattered coarse breath sounds bilateral, decreased sounds left side, no wheezes, left-sided pigtail catheter in place, 1+ air leak. Abdomen - soft, non-tender, not distended, BS present. no guarding. Extremities - no edema, + peripheral pulses Neuro - awake alert and oriented 3, moves all extremities, conversant. A/P Problem List: (1) Migraine headache ICD Code: G43.909 - Migraine, unspecified, not intractable, without status migrainosus Status: Chronic (2) Spontaneous pneumothorax ICD Code: J93.83 - Other pneumothorax Status: Acute (3) Recurrent spontaneous pneumothorax ICD Code: J93.83 - Other pneumothorax Status: Acute (4) COPD exacerbation ICD Code: J44.1 - Chronic obstructive pulmonary disease with (acute) exacerbation Status: Acute (5) Pulmonary fibrosis ICD Code: J84.10 - Pulmonary fibrosis, unspecified Status: Chronic Assessment and Plan Assessment: 1. Acute hypoxic respiratory failure - requiring intubation and mechanical ventilation, now extubated 2. 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 COPD, chronic bronchitis with bronchiectasis 4. Pulmonary fibrosis 5. HTN Plan: 1. Wean FiO2 to keep oxygen saturation more than 88%, currently on 2 L nasal cannula 2. Bronchodilators 3. Continue chest tube to suction at -40. s/p chest tube up sizing by IR 4. Daily chest x-ray 5. s/p full course Augmentin. 6. Continue Solu-Medrol 40 mg IV every 6 hours per pulmonary 7. On antihypertensives with amlodipine and metoprolol 8. Artificial tears as needed 9. low-dose Xanax as needed for anxiety -discussed with the patient and he agrees 10. GI/DVT prophylaxis 11. Plan discussed extensively by patient, Dr. Santos and . patient still not a candidate for CT surgery here due to friable tissue. most likely would benefit from permanent valve, but more-over, needs work-up for transplant , as his lung disease is fairly rapidly progressive. will continue to look for transplant centers with the ability to work the patient up for transplant. Plan second tube to evacuate the loculated upper middle space and hopefully get the pleural surfaces stuck together. 12. Consider re-sclerosis left pleural space. Problem Qualifiers (1) Migraine headache: Qualified Codes: G43.009 - Migraine without aura, not intractable, without status migrainosus Lemuel Aguayo MD Jan 23, 2018 08:30
[2018-01-23] MEDS: TIOTROPIUM BROMIDE 18 MCG INH INH SCH (08:59)
[2018-01-23] MEDS: ENOXAPARIN SODIUM 40 MG/0.4 ML SYRINGE SQ SCH (08:59)
[2018-01-23] MEDS: SODIUM CHLORIDE 0.9% FLUSH 10 ML FLUSH IV FLUSH SCH ×2 (08:59→21:00)
[2018-01-23] MEDS: LIDOCAINE HCL 5% PATCH T-DERMAL SCH (08:59)
[2018-01-23] MEDS: predniSONE 10 MG TAB PO SCH (08:59)
[2018-01-23] MEDS: BUDESONIDE-FORMOTEROL 160/4.5 MCG INHALER INH SCH ×2 (08:59→21:00)
[2018-01-23] MEDS: guaiFENesin E.R. 600 MG TAB PO SCH ×2 (08:59→20:29)
[2018-01-23] MEDS: METOPROLOL TARTRATE 25 MG TAB PO SCH ×2 (08:59→21:00)
[2018-01-23] MEDS: DOCUSATE SODIUM 50 MG/SENNA 8.6 MG TAB PO SCH ×2 (08:59→20:29)
[2018-01-23] MEDS: FAMOTIDINE 20 MG/2 ML VIAL IV PUSH SCH ×2 (08:59→20:29)
--- NOTE | 2018-01-23 16:57 | HHI.HCPN ---
Reason for visit a. To assist with evaluation and management of symptoms including: Dyspnea, weakness, anxiety b. To assist medical decision maker(s) with: better understanding of current medical conditions; weighing benefits/burdens of medical treatment options; making medical treatment decisions. Subjective/Interval History Patient seen today to follow-up symptoms and goals of care. Patient expresses a level of frustration regarding plans for treating the recurrent pneumothoraces. He was referred to [facility] for evaluation EBV and transplant. He was declined due to no availability of beds. Placing an additional chest tube to try to evacuate a small amount of pleural air in the left mid hemithorax to facilitate re-sclerosis has been explored with interventional radiology, who feels there is no need for that at this time. CV surgery last saw patient on 12/29 and had stated he is not a candidate for surgery at this facility due to the friability of his tissue. Continuing to look for transplant centers with the ability to work the patient up for transplant. He is breathing a little better today. He still has some dyspnea with extended conversation or movement. Pain is better controlled, and generally occurs with deep inspiration or movement. He is using hydromorphone 3-4 times daily in addition to oxycodone 10 mg 3-4 times daily and Toradol 30 mg IV every 6 hours, which was started today. He is experiencing some anxiety as he is pending transfer to the [facility] floor. He does have a significant amount of anxiety, for which he has Xanax available. * Vital signs: Blood pressure 99/64, respiratory rate 17, oxygen saturation 99 % on 2 L nasal cannula, afebrile. * Radiology: Chest x-ray shows reduction in the pneumothorax. Notes the possibility of small amount of pleural air loculated laterally in the left mid hemithorax. [place] of the left hemithorax is stable and may be related to bulla. Diffuse bilateral airspace consolidation, right greater than left. Mild left chest wall subcutaneous air present.. * Laboratory: WBC 14.0, hemoglobin 13.2, hematocrit 40.3, platelets 325, sodium 135, potassium 4.6, BUN 15, creatinine 0.70. . Family/friend interactions No family at bedside. . Advance Directives Living Will: Never completed Health Care Surrogate: Never completed Durable Power of Hhas: Never completed Objective Vital Signs Date Time Temp Pulse Resp B/P (MAP) Pulse Ox O2 Delivery O2 Flow Rate FiO2 01/23/18 14:00 87 01/23/18 12:00 90 01/23/18 12:00 97.5 90 17 99/64 (76) 99 01/23/18 10:00 67 01/23/18 09:45 12 01/23/18 08:00 98.7 104 20 99/68 (78) 100 01/23/18 08:00 104 01/23/18 07:16 100 Nasal Cannula 2.00 01/23/18 07:00 100 Nasal Cannula 2.00 Humidified 01/23/18 06:27 13 01/23/18 06:00 70 01/23/18 04:00 70 01/23/18 04:00 98.1 70 13 96/69 (78) 100 01/23/18 02:00 78 01/23/18 00:00 98.1 98 21 113/84 (94) 95 01/23/18 00:00 98 01/22/18 22:00 104 01/22/18 20:41 98 Nasal Cannula 2.00 01/22/18 20:00 84 01/22/18 20:00 97.8 84 15 111/80 (90) 100 01/22/18 19:00 100 Nasal Cannula 2.00 Humidified 01/22/18 18:00 90 Intake & Output 01/23/18 01/23/18 06:59 18:59 Intake Total 120 ml Output Total 850 ml Balance -730 ml Intake Oral 120 ml Output Urine Total 700 ml Drainage Total 150 ml # Bowel Movements 0 Physical Exam CONSTITUTIONAL/GENERAL: This is an adequately nourished patient, sitting up in bed in no acute distress. TUBES/LINES/DRAINS: Left chest tube, PIV right hand NECK: Trachea midline. Supple. No palpable thyroid enlargement or nodularity. CARDIOVASCULAR: Regular rate and rhythm without murmurs, gallops, or rubs. No JVD. Peripheral pulses symmetric. RESPIRATORY/CHEST: Lungs diminished left greater than right, occasional wheezes , coarse lung sounds. Small amount of the left subcu emphysema. GASTROINTESTINAL: Abdomen soft, nondistended. No hepato-splenomegaly, or palpable masses. No guarding. Bowel sounds present. GENITOURINARY: Without palpable bladder distension. MUSCULOSKELETAL: Extremities without clubbing, cyanosis, or edema. NEUROLOGICAL: Alert, oriented 4, moves all extremities with equal strength and purpose. PSYCHIATRIC: Mildly anxious, cooperative. . Diagnostic Tests Laboratory Laboratory Tests Test 01/21/18 00:45 Total Creatine Kinase 76 U/L (39-308) Troponin I LESS THAN 0.02 NG/ML Result Diagram: 01/20/18 0329 01/20/18 0329 Microbiology Microbiology Date/Time Source Procedure Growth Status 12/29/17 18:21 Blood Peripheral Aerobic Blood Culture - Final NO GROWTH IN 5 DAYS Complete 12/29/17 18:21 Blood Peripheral Anaerobic Blood Culture - Final NO GROWTH IN 5 DAYS Complete 01/14/18 18:00 Sputum Expectorated Sputum Gram Stain - Final Complete 01/14/18 18:00 Sputum Expectorated Sputum Sputum Culture - Final HEAVY GROWTH NORMAL RESPIRATORY MAKSIM Complete 12/29/17 17:00 Urine Catheterized Urine Legionella Antigen - Final PRESUMPTIVE NEGATIVE FOR LEGIONELLA P... Complete 12/29/17 17:00 Urine Catheterized Urine Streptococcus pneumoniae Antigen (M - Final PRESUMPTIVE NEGATIVE FOR STREPTOCOCCU... Complete Imaging . Last Impressions Chest X-Ray 01/23/18 0000 Signed Impressions: Service Date/Time: Tuesday, January 23, 2018 02:16 - CONCLUSION: 1. Left chest tube remains present. There may be a small amount of pleural air loculated laterally in the left mid hemithorax. The apex of the left hemithorax is stable and may be related to bulla. 2. Diffuse bilateral airspace consolidation. Arnoldo Cheatham MD Tunnelled Chest Tube Removal 01/18/18 0000 Signed Impressions: Service Date/Time: Thursday, January 18, 2018 00:00 - CONCLUSION: Uncomplicated chest tube removal. Arnoldo Gonzalez MD Chest Tube Insertion 01/18/18 0000 Signed Impressions: Service Date/Time: Thursday, January 18, 2018 10:34 - CONCLUSION: Uncomplicated chest tube placement as above. Arnoldo Gonzalez MD Procedures 01/11: Left pigtail chest tube placement. 01/11: Endotracheal intubation 01/18: Replacement of left pigtail chest tube . Assessment and Plan Disease Oriented Problem List: (1) HTN (hypertension) (2) Recurrent spontaneous pneumothorax (3) Pulmonary fibrosis (4) COPD (chronic obstructive pulmonary disease) Symptom Scale: (1) Dyspnea and respiratory abnormalities 0-10 Scale: 5 (2) Weakness 0-10 Scale: 5 Pertinent Non-Medical Issues Psychosocial:He was born in [place] and finished high school there. 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 He was once and after 2 children. He has 1 son and 1 daughter. He was not in the . Spiritual: He was raised as a Jehovah witness but is nonpracticing. Legal: No legal issues noted. Ethical issues impacting care: No ethical issues impacting care. . Important Contacts Sister: Blanca Rodney ([phone] Mother: Precious Echeverria Aunt: Lilia Nicole: Son: Robin Dos Santos (estranged) Daughter: Karma Dos Santos Prognosis His prognosis is guarded. He is having recurrent pneumothoraces and has failed bleb resection and decortication. He has severe pulmonary fibrosis as well as COPD, pneumonitis and bronchiectasis. He was declined by [facility] for valve versus transplant. He is at high risk for further complications and decline. . Code Status: Full Code Plan PLAN: Legal decision maker: Patient is currently capacitated to make his own healthcare decisions. He has at this time declining to name a healthcare surrogate pending his further consideration. Per [place] statute he is aware that that would make his children healthcare proxies, if they wished to serve, in case of his incapacitation. Goals: Aggressive. CODE STATUS: FULL CODE SYMPTOMS: * Dyspnea - his dyspnea is improving with the reexpansion of his left lung, now that the chest tube has been repositioned. He is able to converse without significant dyspnea for a short time. He remains on 2 L nasal cannula. Chest tube remains to -40 suction with positive air leak. Given the severity of his pulmonary fibrosis, recurrent spontaneous pneumothoraces and recent pneumonia he is at risk of continued dyspnea and recurrent respiratory compromise. He is not a candidate for CV surgery in this center per Dr. Blunt. [employer] service is coordinating with Dr. Santos to investigate tertiary centers for endobronchial valve placement and workup for lung transplant. * Weakness - he has been hospitalized a significant portion of the last 6 months resulting in debility. He has been too hypoxic to work with physical therapy and after his transfer to ICU on 01/11, physical therapy was suspended. As his chest tube is now reexpanding the lung, would recommend reordering physical therapy services. * Anxiety: He has a baseline anxiety disorder and the worsening of his disease is exacerbating that. He states his anxiety is now slightly worse because he is concerned that he will be unable to qualify for transplant or valve, in which case his disease will likely be fatal. He does have Xanax available for use but is seeking information from medical providers to attempt to ameliorate his anxiety non-pharmacologically to the best of his ability. As he has a family history of pulmonary fibrosis in 2 maternal uncles and 1 maternal cousin , he is aware of the outcome. Palliative will continue to communicate with him on a daily basis to update him as to progress to assist in managing his anxiety. Palliative care will continue to follow the patient during hospital course as condition evolves, to assist patient/decision-maker with understanding of their medical conditions, weighing benefits/burdens of treatment options, for clarification of goals of treatment. Additionally will assist with any symptoms of palliative concern. . Attestation To help prompt me to consider important information that might be impacting today's encounter and assessment, information from prior notes written by myself or my colleagues may have been "brought forward" into today's note. My signature on this note, however, is an attestation that I personally performed the exam, history, and/or decision-making noted today, and, unless otherwise indicated, the interactions with patient, family, and staff as well as the review of records all occurred today. I also attest that the listed assessment and stated plan reflect my best clinical judgment today based on the combination of historical information, prior notes, and today's exam/ interactions. When time spent is documented, it refers only to time spent today by the signer, or if indicated, combined time spent today by collaborating physician/nurse practitioner. . Jessica Cabrera Jan 23, 2018 4:57 pm
--- NOTE | 2018-01-23 19:04 | HHI.PR ---
Subjective Remarks No new complaints. Chest tube in left chest with some leak.Waiting on transfer to [facility] for Endobronchial valve. Now on O2 N/C 2 L. Needs a New 2 nd Chest tube on left . CXR shows a Stable medial left loculated Pneumothorax. Lateral Pneumo resolved. Objective Vital Signs Date Time Temp Pulse Resp B/P (MAP) Pulse Ox O2 Delivery O2 Flow Rate FiO2 01/23/18 18:00 80 01/23/18 16:00 78 01/23/18 16:00 97.9 78 14 104/59 (74) 100 01/23/18 14:00 87 01/23/18 12:00 90 01/23/18 12:00 97.5 90 17 99/64 (76) 99 01/23/18 10:00 67 01/23/18 09:45 12 01/23/18 08:00 98.7 104 20 99/68 (78) 100 01/23/18 08:00 104 01/23/18 07:16 100 Nasal Cannula 2.00 01/23/18 07:00 100 Nasal Cannula 2.00 Humidified 01/23/18 06:27 13 01/23/18 06:00 70 01/23/18 04:00 70 01/23/18 04:00 98.1 70 13 96/69 (78) 100 01/23/18 02:00 78 01/23/18 00:00 98.1 98 21 113/84 (94) 95 01/23/18 00:00 98 01/22/18 22:00 104 01/22/18 20:41 98 Nasal Cannula 2.00 01/22/18 20:00 84 01/22/18 20:00 97.8 84 15 111/80 (90) 100 I/O 01/22/18 01/22/18 01/22/18 01/23/18 01/23/18 01/23/18 07:00 15:00 23:00 07:00 15:00 23:00 Intake Total 480 ml 760 ml 120 ml 240 ml Output Total 1010 ml 925 ml 850 ml 90 ml Balance -530 ml -165 ml -730 ml 150 ml Intake Oral 480 ml 760 ml 120 ml 240 ml Output Urine Total 900 ml 875 ml 700 ml Chest Tube Drainage Total 90 ml Drainage Total 110 ml 50 ml 150 ml # Voids 0 # Bowel Movements 0 0 0 0 Result Diagram: 01/20/1832801/20/18328 Objective Remarks GENERAL: This is a well-built middle-aged man who is awake . No pallor or icterus, or edema. HEAD, EYES, EARS, NOSE, THROAT: Head normocephalic. The pupils are reactive and equal. Throat clear. NECK: The neck is supple. No venous distention. CHEST: Decreased breath sounds over the left mid and upper chest with occ crackles at the lung bases.Few wheezes. HEART: Heart sounds are regular. S1 and S2. No murmur. No S3. ABDOMEN: Abdomen soft and without masses. No organomegaly or tenderness. The bowel sounds are active. EXTREMITIES: No lesions. No edema. NEUROLOGIC: Reflexes are 1 +. SKIN: No lesions. Assessment and Plan Assessment and Plan IMPRESSION: 1. Recurrent left pneumothorax with hypoxemia. 2. COPD and chronic bronchitis with bronchiectasis. 3. Basilar pulmonary fibrosis. 4. Hypertension. 5. Respiratory failure Plan : 1. Will try to transfer to [facility] for Endobronchial valve. 2. Cont O2 to 2 L 3. Prednisone 10 mg daily 4. Duonebs qid. 5. Up in room as tolerated 6. IS at bedside q3h 7. Chest X ray in am 8. Ok to transfer to 4th Floor. Prerna Santos MD Jan 23, 2018 19:04
[2018-01-23] MEDS: ALPRAZolam 0.25 MG TAB PO PRN (20:29)
[2018-01-23] MEDS: REMOVE OLD LIDOCAINE PATCH T-DERMAL SCH (21:00)
[2018-01-24] VITALS (8 sets, daily range): BP systolic 89–122; BP diastolic 58–71; PULSE 80–85; RESP 16–23; TEMP 96.6–98.7; O2SAT 91–100
[2018-01-24] MEDS: KETOROLAC TROMETHAMINE 30 MG/ML (IVP) VIAL IV PUSH SCH
[2018-01-24] MEDS: HYDROmorphone HCL PF 2 MG/ML VIAL IV PUSH PRN ×5 (00:33→21:15)
[2018-01-24] MEDS: RESP: ALBUTEROL 2.5 MG/IPRATROPIUM 0.5 MG NEB (SCH) NEB ×4 (03:23→22:00)
[2018-01-24] MEDS: CHLORHEXIDINE 0.12% (ORAL KIT) 15 ML CUP MT SCH ×2 (08:00→20:00)
[2018-01-24] MEDS: DOCUSATE SODIUM 50 MG/SENNA 8.6 MG TAB PO SCH ×2 (09:00→21:09)
[2018-01-24] MEDS: guaiFENesin E.R. 600 MG TAB PO SCH ×2 (09:00→21:10)
[2018-01-24] MEDS: BUDESONIDE-FORMOTEROL 160/4.5 MCG INHALER INH SCH ×2 (10:23→21:00)
[2018-01-24] MEDS: METOPROLOL TARTRATE 25 MG TAB PO SCH ×2 (10:23→21:10)
[2018-01-24] MEDS: ENOXAPARIN SODIUM 40 MG/0.4 ML SYRINGE SQ SCH (10:23)
[2018-01-24] MEDS: SODIUM CHLORIDE 0.9% FLUSH 10 ML FLUSH IV FLUSH SCH ×2 (10:24→21:00)
[2018-01-24] MEDS: FAMOTIDINE 20 MG/2 ML VIAL IV PUSH SCH ×2 (10:24→21:09)
[2018-01-24] MEDS: predniSONE 10 MG TAB PO SCH (10:24)
[2018-01-24] MEDS: TIOTROPIUM BROMIDE 18 MCG INH INH SCH (10:25)
[2018-01-24] MEDS: LIDOCAINE HCL 5% PATCH T-DERMAL SCH (10:26)
[2018-01-24] MEDS: guaiFENesin/CODEINE SYRUP 200 MG/20 MG/10 ML CUP PO PRN (10:27)
--- NOTE | 2018-01-24 19:21 | HHI.PR ---
Subjective Remarks Feels OK.. Chest tube in left chest with some leak. Waiting on transfer to [facility] for Endobronchial valve. Now on O2 N/C 2 L. CXR shows a Stable medial left loculated Pneumothorax. Small left lateral pneumo. Objective Vital Signs Date Time Temp Pulse Resp B/P (MAP) Pulse Ox O2 Delivery O2 Flow Rate FiO2 01/24/18 19:07 Nasal Cannula 2.00 30 01/24/18 16:02 97 Nasal Cannula 2.00 01/24/18 15:25 Nasal Cannula 2.00 30 01/24/18 12:00 97.5 83 16 105/68 (80) 98 01/24/18 08:15 Nasal Cannula 2.00 01/24/18 08:00 98.7 84 16 99/69 (79) 98 01/24/18 08:00 84 01/24/18 07:00 97 Nasal Cannula 2.00 Humidified 01/24/18 06:39 83 23 89/58 (68) 100 01/24/18 06:38 83 01/24/18 01:45 82 01/24/18 00:00 85 22 104/66 (79) 100 01/23/18 22:21 82 01/23/18 21:42 98.0 86 17 102/68 (79) 100 01/23/18 21:42 104 01/23/18 19:34 100 Nasal Cannula 2.00 I/O 01/23/18 01/23/18 01/23/18 01/24/18 01/24/18 01/24/18 07:00 15:00 23:00 07:00 15:00 23:00 Intake Total 120 ml 240 ml 640 ml 480 ml 360 ml Output Total 850 ml 90 ml 800 ml 550 ml 150 ml Balance -730 ml 150 ml -160 ml -70 ml 210 ml Intake Oral 120 ml 240 ml 640 ml 480 ml 360 ml Output Urine Total 700 ml 800 ml 550 ml Chest Tube Drainage Total 90 ml Drainage Total 150 ml 150 ml # Voids 0 # Bowel Movements 0 0 0 Result Diagram: 01/20/1832801/20/18328 Objective Remarks GENERAL: This is a well-built middle-aged man who is awake . No pallor or icterus, or edema. HEAD, EYES, EARS, NOSE, THROAT: Head normocephalic. The pupils are reactive and equal. Throat clear. NECK: The neck is supple. No venous distention. CHEST: Decreased breath sounds over the left mid and upper chest with occ crackles at the lung bases.and Few wheezes. HEART: Heart sounds are regular. S1 and S2. No murmur. No S3. ABDOMEN: Abdomen soft and without masses. No organomegaly or tenderness. The bowel sounds are active. EXTREMITIES: No lesions. No edema. NEUROLOGIC: Reflexes are 1 +. SKIN: No lesions. Assessment and Plan Assessment and Plan IMPRESSION: 1. Recurrent left pneumothorax with hypoxemia. 2. COPD and chronic bronchitis with bronchiectasis. 3. Basilar pulmonary fibrosis. 4. Hypertension. 5. Respiratory failure Plan : 1. Will try to transfer to [facility] for Endobronchial valve. 2. Cont O2 to 2 L 3. Prednisone 10 mg daily 4. Duonebs qid. 5. Up in room as tolerated 6. IS at bedside q3h 7. Get Chest X ray in am Prerna Santos MD Jan 24, 2018 19:21
--- NOTE | 2018-01-24 19:50 | HHI.CCPN ---
Subjective Remarks/Hospital Course 47-year-old male with a past medical history significant for pulmonary fibrosis , COPD and hypertension and VATS/bleb resection/pleurodesis by Dr. Amanda on 08/23 is admitted to hospital with increased shortness of breath. Chart documentation for the past 24 hours prior to admission he has had significant fever/chills and increasing shortness of breath. Patient was found to have a left-sided pneumothorax on chest x-ray. The chest tube was placed and patient was admitted to medicine with pulmonary consultation in place. Today shortly after midnight the chest tube was found at the patient's bedside the dislodged, patient was in severe respiratory distress, diaphoretic and hypoxemic. The stat x-ray showed reaccumulation of left-sided pneumothorax and emergent chest tube was placed. 12/30 - resting in bed on 6 nasal cannula. Complaining of sore throat. Cough. Pneumothorax last left-sided similar size in reviewing chest x-ray this AM. Discussed with Dr. Blunt and patient 12/31: Resting in bed on nasal cannula. 6 L. Sore throat better controlled with Chloraseptic [place]. Small left sided pneumothorax similar in size from yesterday. Maintaining positive attitude. 01/01: no change. still quite dyspneic. on 6L and intermittently NRB. no new complaints. 01/02: Intermittent requiring nasal cannula versus nonrebreather mask. Remain short of breath. Small air leak persists. -40 cm H2O 01/03: Currently on nasal cannula 6 L. Appears depressed. Small air leak persists 1-2 chambers. -40 cm H2O. 01/04: Remains on nasal cannula 6 L. Switch is off and on between nonrebreather nasal cannula. Air leak persists. Pulmonology is okay with transfer to floor. 01/11: Per report, pigtail catheter placed earlier during hospitalization came out last night. Earlier this AM, patient with worsening respiratory distress, requiring NRM, with PO2 in the 50's. Stat CXR showing left sided pneumothorax. After discussing with patient, he was intubated and simultaneously had a left sided pigtail catheter placed. Currently, mechanically ventilated, Pip mid 20's synchronized with the vent. Chest tube at -40 with air leak. 01/12: No events over the night. Patient doing better, shortness of breath significantly improved, complaining of some chest pain over the chest tube site. Eyes feel better, no visual disturbances, no double vision, very happy with artificial tears. Better spirits. Left-sided chest tube with continuous air leak on suction at -40. He remains on high flow nasal cannula at 0.4 FiO2 and 35 L/min, with O2 sat of 100%. Morning chest x-ray reviewed, mild improvement in left-sided pneumothorax, unchanged infiltrates bilateral worse on the right. 01/13: Patient was weaned off to 6 L nasal cannula last evening over the night he required to be placed back on high flow due to desaturation to mid 80s. This morning he continues to require high flow nasal cannula flow increased from 25-35 L/min due to low O2 sat currently at 40% with sats in the 90s. Otherwise he feels a little better still complaining of some left-sided chest pain due to chest tube shortness of breath unchanged, eye discomfort significantly improved. Chest tube on suction at -40 with continuous air leak. T-max 99.2. 01/14: No events overnight. Patient still requiring high flow nasal cannula at 20 L/min and FiO2 of 0.4 with O2 sats in the mid 90s. Continuous continuous air leak on suction at -40 from a left-sided chest tube. Patient feels better, shortness of breath slightly improved, coughing, bringing up yellow-green sputum. No other complaints, good spirits. T-max 99.7. Morning chest x-ray reviewed, left-sided loculated pneumothorax unchanged. Still with persistent bilateral infiltrates, right worse than left. 01/15: No events overnight. Patient on high flow nasal cannula 20 L/min FiO2 of 0.3, tapering it down. Still some left-sided chest pain on the pigtail catheter. No other complaints. Morning chest x-ray reviewed, left-sided loculated pneumothorax is unchanged as well as persistent bilateral infiltrates. Chest tube to suction at -40 with continuous air leak. 01/16: no changes. remains on high flow NC. no improvements. chest tube to suction. 01/17: down to 6L o2 by NC today. no air leak on CT. still complaints of stable dyspnea. 01/18: No air leak but lung remains incompletely expanded left side. Will need to check tube for plug or replace. 01/19: Chest tube up sized yesterday, but loculated pneumothorax persists, with midline shift. Dr. Amanda to reevaluate per Dr. Hidalgo's notes 01/20: It may be worth targeting the isolated upper medial pneumothorax on the left to see if we can get the pleural space stuck up. 01/21: Air leak persists left. Conversational dyspnea persists. 01/22: Discussed with Dr. Santos. If possible for IR will try to evacuate right upper medii, consider re-sclerosis. 01/23: Resting comfortably in bed. Continues to have small air leak. 01/24: no changes. no complaints. ROS negative. 1+ air leak persists. on 2L nc. Objective Vital Signs Date Time Temp Pulse Resp B/P (MAP) Pulse Ox O2 Delivery O2 Flow Rate FiO2 01/24/18 19:07 Nasal Cannula 2.00 30 01/24/18 16:02 97 01/24/18 12:00 97.5 83 16 105/68 (80) Intake and Output 01/24/18 01/24/18 01/25/18 08:00 16:00 00:00 Intake Total 640 ml 480 ml 360 ml Output Total 800 ml 550 ml 150 ml Balance -160 ml -70 ml 210 ml Result Diagram: 01/20/18 0329 01/20/18 0329 Imaging Last 24 hours Impressions Chest X-Ray 01/15/18 0600 Signed Impressions: Service Date/Time: Monday, January 15, 2018 04:03 - CONCLUSION: No change right greater than left pulmonary opacities and moderate sized loculated left pneumothorax with mediastinal shift. Arnoldo Christensen MD Last Impressions Chest X-Ray 01/14/18 0400 Signed Impressions: Service Date/Time: Sunday, January 14, 2018 04:39 - CONCLUSION: Moderate-sized loculated left pneumothorax persists and with mediastinal shift not significantly changed. Arnoldo Christensen MD Last Impressions Chest X-Ray 01/13/18 0400 Signed Impressions: Service Date/Time: Saturday, January 13, 2018 04:30 - CONCLUSION: 1. Loculated moderate size left pneumothorax with mediastinal shift. Left chest tube remains in place. 2. Diffuse bilateral airspace opacities persist. Arnoldo Christensen MD Last Impressions Chest X-Ray 01/12/18 0400 Signed Impressions: Service Date/Time: December 05:18 - CONCLUSION: 1. Mild interval improvement in left pneumothorax. Mediastinal shift to the right remains. 2. Diffuse airspace disease remains right greater than left. Saleem Mejia MD Procedures Chest tube placement Endotracheal tube placement Objective Remarks General - middle age gentleman, awake, alert, in no distress. On NC 2L HEENT - pupils equal, reactive, sclerae anicteric, neck supple, moist mucous membranes CV - regular heart sounds, no murmurs, rubs or gallops, no JVD. Chest -scattered coarse breath sounds bilateral, decreased sounds left side, no wheezes, left-sided pigtail catheter in place, 1+ air leak. Abdomen - soft, non-tender, not distended, BS present. no guarding. Extremities - no edema, + peripheral pulses Neuro - awake alert and oriented 3, moves all extremities, conversant. A/P Problem List: (1) Migraine headache ICD Code: G43.909 - Migraine, unspecified, not intractable, without status migrainosus Status: Chronic (2) Spontaneous pneumothorax ICD Code: J93.83 - Other pneumothorax Status: Acute (3) Recurrent spontaneous pneumothorax ICD Code: J93.83 - Other pneumothorax Status: Acute (4) COPD exacerbation ICD Code: J44.1 - Chronic obstructive pulmonary disease with (acute) exacerbation Status: Acute (5) Pulmonary fibrosis ICD Code: J84.10 - Pulmonary fibrosis, unspecified Status: Chronic Assessment and Plan Assessment: 1. Acute hypoxic respiratory failure - requiring intubation and mechanical ventilation, now extubated 2. 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 COPD, chronic bronchitis with bronchiectasis 4. Pulmonary fibrosis 5. HTN Plan: 1. Wean FiO2 to keep oxygen saturation more than 88%, currently on 2 L nasal cannula 2. Bronchodilators 3. Continue chest tube to suction at -40. s/p chest tube up sizing by IR 4. Daily chest x-ray 5. s/p full course Augmentin. 6. Continue Solu-Medrol 40 mg IV every 6 hours per pulmonary 7. On antihypertensives with amlodipine and metoprolol 8. Artificial tears as needed 9. low-dose Xanax as needed for anxiety -discussed with the patient and he agrees 10. GI/DVT prophylaxis 11. Plan discussed extensively by patient, Dr. Santos and . patient still not a candidate for CT surgery here due to friable tissue. most likely would benefit from permanent valve, but more-over, needs work-up for transplant , as his lung disease is fairly rapidly progressive. will continue to look for transplant centers with the ability to work the patient up for transplant. Plan second tube to evacuate the loculated upper middle space and hopefully get the pleural surfaces stuck together. 12. Consider re-sclerosis left pleural space. stable for transfer to floor. consult hospitalist service. Problem Qualifiers (1) Migraine headache: Qualified Codes: G43.009 - Migraine without aura, not intractable, without status migrainosus Hernan Serna MD Jan 24, 2018 19:50
[2018-01-24] MEDS: REMOVE OLD LIDOCAINE PATCH T-DERMAL SCH (21:00)
[2018-01-24] MEDS: ALPRAZolam 0.25 MG TAB PO PRN (22:56)
--- NOTE | 2018-01-24 23:13 | RADRPT ---
EXAM DATE/TIME: 01/24/2018 19:30 [place] COMPARISON: CHEST SINGLE AP, January 20, 2018, 3:58. CHEST SINGLE AP, January 23, 2018, 2:16. INDICATIONS : Cough and short of breath. MEDICAL HISTORY : Hypertension. COPD. Chronic bronchitis with bronchiectasis. Basilar pulmonary fibrosis. Respira tory failure. SURGICAL HISTORY : None. ENCOUNTER: Subsequent ACUITY: 1 week PAIN SCORE: 0/10 LOCATION: Bilateral chest FINDINGS: Portable AP view of the chest demonstrates a normal-sized cardiac silhouette with mild rightward shif t of the mediastinum. There is diffuse interstitial and airspace opacity throughout the lungs bilater ally, left greater than right. Lung staple line overlies the left lung apex. A lucency at the left ap ex and medial left apex is stable. There is a pigtail pleural catheter in the left mid hemithorax lat erally. There is stable lucency in this area with adjacent subcutaneous emphysema in the left chest w all. No pleural effusion is identified. CONCLUSION: 1. Stable chest x-ray with left chest tube in place on the stable lucency in the peripheral mid left hemithorax and stable lucency at the superior medial aspect of the left hemithorax which could be rel ated to pneumothorax or bulla. 2. Stable bilateral lung interstitial and air space consolidation, right greater than left. Arnoldo Cheatham MD on January 24, 2018 at 23:09 Board Certified Radiologist. This report was verified electronically.
[2018-01-25] VITALS (9 sets, daily range): BP systolic 100–118; BP diastolic 58–67; PULSE 70–105; RESP 17–20; TEMP 96–98.3; O2SAT 92–98
[2018-01-25] MEDS: RESP: ALBUTEROL 2.5 MG/IPRATROPIUM 0.5 MG NEB (SCH) NEB ×4 (03:43→22:00)
[2018-01-25] MEDS: CHLORHEXIDINE 0.12% (ORAL KIT) 15 ML CUP MT SCH ×2 (08:00→20:00)
[2018-01-25] MEDS: ENOXAPARIN SODIUM 40 MG/0.4 ML SYRINGE SQ SCH (08:41)
[2018-01-25] MEDS: LIDOCAINE HCL 5% PATCH T-DERMAL SCH (08:42)
[2018-01-25] MEDS: DOCUSATE SODIUM 50 MG/SENNA 8.6 MG TAB PO SCH ×2 (08:42→21:26)
[2018-01-25] MEDS: predniSONE 10 MG TAB PO SCH (08:42)
[2018-01-25] MEDS: METOPROLOL TARTRATE 25 MG TAB PO SCH ×2 (08:42→21:00)
[2018-01-25] MEDS: guaiFENesin E.R. 600 MG TAB PO SCH ×2 (08:43→21:26)
[2018-01-25] MEDS: FAMOTIDINE 20 MG/2 ML VIAL IV PUSH SCH ×2 (08:43→21:26)
[2018-01-25] MEDS: SODIUM CHLORIDE 0.9% FLUSH 10 ML FLUSH IV FLUSH SCH ×2 (08:43→21:25)
[2018-01-25] MEDS: BUDESONIDE-FORMOTEROL 160/4.5 MCG INHALER INH SCH ×2 (08:44→21:00)
[2018-01-25] MEDS: TIOTROPIUM BROMIDE 18 MCG INH INH SCH (08:44)
[2018-01-25] MEDS: ALPRAZolam 0.25 MG TAB PO PRN ×2 (08:49→21:27)
[2018-01-25] MEDS: guaiFENesin/CODEINE SYRUP 200 MG/20 MG/10 ML CUP PO PRN (08:49)
[2018-01-25] MEDS: HYDROmorphone HCL PF 2 MG/ML VIAL IV PUSH PRN ×2 (11:53→15:57)
--- NOTE | 2018-01-25 12:19 | HHI.PR ---
Subjective Remarks Follow-up recurrent spontaneous pneumothorax/Pulmonary fibrosis 01/25/18-patient seen and examined; still with Shortness of breath, Chest tube in place Objective Vitals Vital Signs Date Time Temp Pulse Resp B/P (MAP) Pulse Ox O2 Delivery O2 Flow Rate FiO2 01/25/18 08:30 92 Nasal Cannula 2.00 01/25/18 08:00 97.7 92 19 107/66 (80) 92 01/25/18 04:00 96.9 70 18 101/62 (75) 92 01/25/18 02:42 20 01/25/18 00:00 97.6 73 18 100/58 (72) 97 01/24/18 21:47 20 01/24/18 21:15 Nasal Cannula 2.00 01/24/18 20:53 Nasal Cannula 2.00 01/24/18 20:00 96.6 80 18 122/71 (88) 91 01/24/18 19:07 Nasal Cannula 2.00 30 01/24/18 16:02 97 Nasal Cannula 2.00 01/24/18 15:25 Nasal Cannula 2.00 30 I/O 01/24/18 01/24/18 01/24/18 01/25/18 01/25/18 01/25/18 07:00 15:00 23:00 07:00 15:00 23:00 Intake Total 640 ml 480 ml 360 ml Output Total 800 ml 550 ml 150 ml 675 ml Balance -160 ml -70 ml 210 ml -675 ml Intake Oral 640 ml 480 ml 360 ml Output Urine Total 800 ml 550 ml 625 ml Drainage Total 150 ml 50 ml # Bowel Movements 0 Imaging Last Impressions Chest X-Ray 01/24/18 0000 Signed Impressions: Service Date/Time: Wednesday, January 24, 2018 19:30 - CONCLUSION: 1. Stable chest x-ray with left chest tube in place on the stable lucency in the peripheral mid left hemithorax and stable lucency at the superior medial aspect of the left hemithorax which could be related to pneumothorax or bulla. 2. Stable bilateral lung interstitial and air space consolidation, right greater than left. Arnoldo Cheatham MD Tunnelled Chest Tube Removal 01/18/18 0000 Signed Impressions: Service Date/Time: Thursday, January 18, 2018 00:00 - CONCLUSION: Uncomplicated chest tube removal. Arnoldo Gonzalez MD Chest Tube Insertion 01/18/18 0000 Signed Impressions: Service Date/Time: Thursday, January 18, 2018 10:34 - CONCLUSION: Uncomplicated chest tube placement as above. Arnoldo Gonzalez MD Objective Remarks GENERAL: NAD SKIN: Warm and dry. HEAD: Normocephalic. EYES: No scleral icterus. No injection or drainage. NECK: Supple, trachea midline. No JVD or lymphadenopathy. CARDIOVASCULAR: Regular rate and rhythm without murmurs, gallops, or rubs. RESPIRATORY: Breath sounds decrease bilaterally and absent Left upper lung. No accessory muscle use. left chest tube in place GASTROINTESTINAL: Abdomen soft, non-tender, nondistended. MUSCULOSKELETAL: No cyanosis, or edema. BACK: Nontender without obvious deformity. No CVA tenderness. Procedures Chest tube placement Endotracheal tube placement A/P Problem List: (1) Recurrent spontaneous pneumothorax ICD Code: J93.83 - Other pneumothorax Status: Acute (2) COPD (chronic obstructive pulmonary disease) ICD Code: J44.9 - Chronic obstructive pulmonary disease, unspecified (3) Pulmonary fibrosis ICD Code: J84.10 - Pulmonary fibrosis, unspecified Status: Chronic Assessment and Plan 47 year-old man with 1. Acute hypoxic respiratory failure - requiring intubation and mechanical ventilation, now extubated 2. 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 COPD, chronic bronchitis with bronchiectasis 4. Pulmonary fibrosis 5. HTN Plan: 1. Wean FiO2 to keep oxygen saturation more than 88%, currently on 2 L nasal cannula 2. Bronchodilators 3. Continue chest tube to suction at -40. s/p chest tube up sizing by IR 4. Daily chest x-ray 5. s/p full course Augmentin. 6. Continue Solu-Medrol 40 mg IV every 6 hours per pulmonary 7. On antihypertensives with amlodipine and metoprolol 8. Artificial tears as needed 9. low-dose Xanax as needed for anxiety 10. GI/DVT prophylaxis 11. Plan discussed extensively by patient, Dr. Coy and . patient still not a candidate for CT surgery here due to friable tissue. most likely would benefit from permanent valve, but more-over, needs work-up for transplant however admission to [facility] has been denied. 12. Consider re-sclerosis left pleural space. Kenneth Resendez MD Jan 25, 2018 12:19
--- NOTE | 2018-01-25 12:41 | HHI.HCPN ---
Reason for visit a. To assist with evaluation and management of symptoms including: Dyspnea, weakness, anxiety, pain b. To assist medical decision maker(s) with: better understanding of current medical conditions; weighing benefits/burdens of medical treatment options; making medical treatment decisions. Subjective/Interval History Patient seen today to follow-up symptoms and goals of care. He was transferred out of intensive care yesterday and is having difficulty maintaining pain control. He states that he "missed 2 doses of pain medication today" because he was sleeping. When he awoke, he had severe pain with cough which is just beginning to come under control after receiving 10 mg of oxycodone , 1 mg of IV hydromorphone and a milligram of Xanax. He does have significant anxiety compounded by hypoxia and his general health situation. He inquired regarding any possibility of lung transplant, as [facility] refused him as a transfer, possibly due to insurance limitations, and no further facilities have been identified. His prognosis is compounded by the rate of decline of his lung function, which has been fairly rapid, also limiting his options. In my discussion with his physicians, it is not felt that he would survive long enough , given his current rate of decline to ever receive a lung transplant. Further complicating his course is his prior decortication which would make long surgery much more difficult and also compromise his chances of ever being chosen to receive a transplant. * Vital signs: Blood pressure 107/66, respiratory rate 19, oxygen saturation 92 % on 2 L nasal cannula, afebrile. * Radiology: Chest x-ray shows left chest tube in place with stable lucency in the peripheral mid left hemithorax and stable lucency at the superior medial aspect of the left hemithorax which could be related to pneumothorax or bulla. Stable bilateral lung interstitial and airspace consolidation right greater than left. Patient is sitting up in bed, waiting to get up to a chair. He is asking for physical therapy to start regaining his mobilization. He did inform me that his aunt and sister were coming over to visit him today and asked to have a family meeting to discuss his clinical condition and prognosis. I again urged him to fill out the healthcare surrogate form as he states he does not want his mother to have to make any decisions for him and feels that any upcoming decisions may be more than his young daughter can handle. He states he would wish his aunt to be his decision maker has so far not named an alternate and has not filled out the form. I again reviewed [facility] statute for decision-makers in lieu of a HCS form. Will readdress in the family meeting. . . Family/friend interactions Held discussion with the patient, his aunt and sister to review patient's condition and prognosis. Reviewed current state of lungs, anatomy, physiology, pathology, previous history, previously explored options and prognosis. We reviewed possible CODE STATUS changes, healthcare surrogate, living will and 5 wishes. Patient wishes to review all documents prior to making any further decisions. Those will be supplied to the patient. Family members confirm that they support whatever decision the patient makes. Advance Directives Living Will: Never completed Health Care Surrogate: Never completed Durable Power of Mold Maker: Never completed Objective Vital Signs Date Time Temp Pulse Resp B/P (MAP) Pulse Ox O2 Delivery O2 Flow Rate FiO2 01/25/18 08:30 92 Nasal Cannula 2.00 01/25/18 08:00 97.7 92 19 107/66 (80) 92 01/25/18 04:00 96.9 70 18 101/62 (75) 92 01/25/18 02:42 20 01/25/18 00:00 97.6 73 18 100/58 (72) 97 01/24/18 21:47 20 01/24/18 21:15 Nasal Cannula 2.00 01/24/18 20:53 Nasal Cannula 2.00 01/24/18 20:00 96.6 80 18 122/71 (88) 91 01/24/18 19:07 Nasal Cannula 2.00 30 01/24/18 16:02 97 Nasal Cannula 2.00 01/24/18 15:25 Nasal Cannula 2.00 30 01/24/18 12:00 97.5 83 16 105/68 (80) 98 Intake & Output 01/25/18 01/25/18 07:00 19:00 Output Total 675 ml Balance -675 ml Output Urine Total 625 ml Drainage Total 50 ml Physical Exam CONSTITUTIONAL/GENERAL: This is an adequately nourished patient, sitting up in bed in no acute distress. TUBES/LINES/DRAINS: Left chest tube, PIV right forearm NECK: Trachea midline. Supple. No palpable thyroid enlargement or nodularity. CARDIOVASCULAR: Regular rate and rhythm without murmurs, gallops, or rubs. No JVD. Peripheral pulses symmetric. RESPIRATORY/CHEST: Lungs diminished left greater than right, occasional wheezes , coarse lung sounds. Small amount of the left subcu emphysema. GASTROINTESTINAL: Abdomen soft, nondistended. No hepato-splenomegaly, or palpable masses. No guarding. Bowel sounds present. GENITOURINARY: Without palpable bladder distension. MUSCULOSKELETAL: Extremities without clubbing, cyanosis, or edema. NEUROLOGICAL: Alert, oriented 4, moves all extremities with equal strength and purpose. PSYCHIATRIC: Mildly anxious, cooperative. . Diagnostic Tests Imaging Last Impressions Chest X-Ray 01/24/18 0000 Signed Impressions: Service Date/Time: Wednesday, January 24, 2018 19:30 - CONCLUSION: 1. Stable chest x-ray with left chest tube in place on the stable lucency in the peripheral mid left hemithorax and stable lucency at the superior medial aspect of the left hemithorax which could be related to pneumothorax or bulla. 2. Stable bilateral lung interstitial and air space consolidation, right greater than left. Arnoldo Cheatham MD Tunnelled Chest Tube Removal 01/18/18 0000 Signed Impressions: Service Date/Time: Thursday, January 18, 2018 00:00 - CONCLUSION: Uncomplicated chest tube removal. Arnoldo Gonzalez MD Chest Tube Insertion 01/18/18 0000 Signed Impressions: Service Date/Time: Thursday, January 18, 2018 10:34 - CONCLUSION: Uncomplicated chest tube placement as above. Arnoldo Gonzalez MD Procedures 01/11: Left pigtail chest tube placement. 01/11: Endotracheal intubation 01/18: Replacement of left pigtail chest tube . Assessment and Plan Disease Oriented Problem List: (1) HTN (hypertension) (2) Recurrent spontaneous pneumothorax (3) Pulmonary fibrosis (4) COPD (chronic obstructive pulmonary disease) Symptom Scale: (1) Dyspnea and respiratory abnormalities 0-10 Scale: 5 (2) Weakness 0-10 Scale: 5 Pertinent Non-Medical Issues Psychosocial:He was born in [place] and finished high school there. 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 He was once and after 2 children. He has 1 son and 1 daughter. He was not in the . Spiritual: He was raised as a Jehovah witness but is nonpracticing. Legal: No legal issues noted. Ethical issues impacting care: No ethical issues impacting care. . Important Contacts Sister: Blanca Rodney ([phone] Mother: Precious Echeverria Aunt: Lilia Nicole: Son: Robin Dos Santos (estranged) Daughter: Karma Dos Santos Prognosis His prognosis is guarded. He is having recurrent pneumothoraces and has failed bleb resection and decortication. He has severe pulmonary fibrosis as well as COPD, pneumonitis and bronchiectasis. He was declined by [facility] for valve versus transplant. He is at high risk for further complications and decline. . Code Status: Full Code Plan PLAN: Legal decision maker: Patient is currently capacitated to make his own healthcare decisions. He has at this time declining to name a healthcare surrogate pending his further consideration. Per [place] statute he is aware that that would make his children healthcare proxies, if they wished to serve, in case of his incapacitation. Goals: Aggressive. CODE STATUS: FULL CODE SYMPTOMS: * Dyspnea - his dyspnea is improving with the reexpansion of his left lung, now that the chest tube has been repositioned. He is able to converse without significant dyspnea for a short time. He remains on 2 L nasal cannula. Chest tube remains to -40 suction with positive air leak. Given the severity of his pulmonary fibrosis, recurrent spontaneous pneumothoraces and recent pneumonia he is at risk of continued dyspnea and recurrent respiratory compromise. He is not a candidate for CV surgery in this center per Dr. Blunt. [facility] service is coordinating with Dr. Santos to investigate tertiary centers for endobronchial valve placement and workup for lung transplant, however none have been identified and it is unlikely that he will survive long enough to receive a transplant. * Weakness - he has been hospitalized a significant portion of the last 6 months resulting in debility. He has been too hypoxic to work with physical therapy and after his transfer to ICU on 01/11, physical therapy was suspended. As his chest tube is now reexpanding the lung. Physical therapy has now been reordered and patient is able to get up to the chair with assistance. His recovery is going to be limited by his dyspnea, continued pneumothorax and intact chest tube. * Anxiety: He has a baseline anxiety disorder and the worsening of his disease is exacerbating that. He states his anxiety is now slightly worse because he is concerned that he will be unable to qualify for transplant or valve, in which case his disease will likely be fatal. He does have Xanax available for use but is seeking information from medical providers to attempt to ameliorate his anxiety non-pharmacologically to the best of his ability. As he has a family history of pulmonary fibrosis in 2 maternal uncles and 1 maternal cousin , he is aware of the outcome. Palliative will continue to communicate with him on a daily basis to update him as to progress to assist in managing his anxiety. * Pain: He is complaining of significant pain, particularly with cough and is requiring regular delivery of pain medication to maintain control of the discomfort. Would recommend initiating a long-acting morphine for more stable oral pain control. In the past 24 hours he has received 5 mg of IV Dilaudid ( which converts to 100 mg of oral morphine) and 30 mg of oxycodone (which converts to 45 mg of oral morphine), equating to a total of 145 mg in 24 hours of oral morphine. Due to the combination of drugs being converted to a single agent would recommend reducing the dose by 25%. At 75% of combined dose (108.75 ), would recommend initiating 30 mg of long-acting morphine every 8 hours as a baseline dose to stabilize pain control. Palliative care will continue to follow the patient during hospital course as condition evolves, to assist patient/decision-maker with understanding of their medical conditions, weighing benefits/burdens of treatment options, for clarification of goals of treatment. Additionally will assist with any symptoms of palliative concern. . Attestation To help prompt me to consider important information that might be impacting today's encounter and assessment, information from prior notes written by myself or my colleagues may have been "brought forward" into today's note. My signature on this note, however, is an attestation that I personally performed the exam, history, and/or decision-making noted today, and, unless otherwise indicated, the interactions with patient, family, and staff as well as the review of records all occurred today. I also attest that the listed assessment and stated plan reflect my best clinical judgment today based on the combination of historical information, prior notes, and today's exam/ interactions. When time spent is documented, it refers only to time spent today by the signer, or if indicated, combined time spent today by collaborating physician/nurse practitioner. . Jessica Cabrera Jan 25, 2018 12:41 pm
--- NOTE | 2018-01-25 18:39 | HHI.PR ---
Subjective Remarks Feels OK.. Chest tube in left chest with mild leak. Waiting on transfer to [facility] for Endobronchial valve. Now on O2 N/C 2 L. CXR again shows a Stable medial left loculated Pneumothorax. Small left lateral pneumo. Objective Vital Signs Date Time Temp Pulse Resp B/P (MAP) Pulse Ox O2 Delivery O2 Flow Rate FiO2 01/25/18 16:00 98.3 105 17 110/59 (76) 94 01/25/18 12:00 96.5 85 18 102/65 (77) 98 01/25/18 08:48 Nasal Cannula 3.50 30 01/25/18 08:30 92 Nasal Cannula 2.00 01/25/18 08:00 97.7 92 19 107/66 (80) 92 01/25/18 04:00 96.9 70 18 101/62 (75) 92 01/25/18 02:42 20 01/25/18 00:00 97.6 73 18 100/58 (72) 97 01/24/18 21:47 20 01/24/18 21:15 Nasal Cannula 2.00 01/24/18 20:53 Nasal Cannula 2.00 01/24/18 20:00 96.6 80 18 122/71 (88) 91 01/24/18 19:07 Nasal Cannula 2.00 30 I/O 01/24/18 01/24/18 01/24/18 01/25/18 01/25/18 01/25/18 06:59 14:59 22:59 06:59 14:59 22:59 Intake Total 640 ml 480 ml 360 ml 480 ml Output Total 800 ml 550 ml 150 ml 675 ml 1350 ml Balance -160 ml -70 ml 210 ml -675 ml -870 ml Intake Oral 640 ml 480 ml 360 ml 480 ml Output Urine Total 800 ml 550 ml 625 ml 1250 ml Drainage Total 150 ml 50 ml 100 ml # Bowel Movements 0 0 Objective Remarks GENERAL: This is a well-built middle-aged man who is alert. No pallor or icterus, or edema. HEAD, EYES, EARS, NOSE, THROAT: Head normocephalic. The pupils are reactive and equal. Throat clear. NECK: The neck is supple. No venous distention. CHEST: Decreased breath sounds over the left mid and upper chest with occ crackles at the lung bases.and wheezes. HEART: Heart sounds are regular. S1 and S2. No murmur. No S3. ABDOMEN: Abdomen soft and without masses. No organomegaly or tenderness. The bowel sounds are active. EXTREMITIES: No lesions. No edema. NEUROLOGIC: Reflexes are 1 +. SKIN: No lesions. Assessment and Plan Assessment and Plan IMPRESSION: 1. Recurrent left pneumothorax with hypoxemia. 2. COPD and chronic bronchitis with bronchiectasis. 3. Basilar pulmonary fibrosis. 4. Hypertension. 5. Respiratory failure Plan : 1. Will try to transfer to [facility] for Endobronchial valve. 2. Cont O2 to 2 L 3. Cont Prednisone 10 mg daily 4. Duonebs qid. 5. Up in room as tolerated 6. IS at bedside q3h 7. PT and OT. Prerna Santos MD Jan 25, 2018 18:39
[2018-01-25] MEDS: REMOVE OLD LIDOCAINE PATCH T-DERMAL SCH (21:00)
[2018-01-26] VITALS (10 sets, daily range): BP systolic 104–132; BP diastolic 59–71; PULSE 77–116; RESP 16–20; TEMP 96.5–98.1; O2SAT 93–98
[2018-01-26] MEDS: RESP: ALBUTEROL 2.5 MG/IPRATROPIUM 0.5 MG NEB (SCH) NEB ×3 (04:10→15:56)
[2018-01-26] MEDS: METOPROLOL TARTRATE 25 MG TAB PO SCH ×2 (10:02→21:23)
[2018-01-26] MEDS: FAMOTIDINE 20 MG/2 ML VIAL IV PUSH SCH ×2 (10:02→21:23)
[2018-01-26] MEDS: DOCUSATE SODIUM 50 MG/SENNA 8.6 MG TAB PO SCH ×2 (10:02→21:23)
[2018-01-26] MEDS: guaiFENesin E.R. 600 MG TAB PO SCH ×2 (10:03→21:00)
[2018-01-26] MEDS: LIDOCAINE HCL 5% PATCH T-DERMAL SCH (10:03)
[2018-01-26] MEDS: ENOXAPARIN SODIUM 40 MG/0.4 ML SYRINGE SQ SCH (10:03)
[2018-01-26] MEDS: predniSONE 10 MG TAB PO SCH (10:03)
[2018-01-26] MEDS: CHLORHEXIDINE 0.12% (ORAL KIT) 15 ML CUP MT SCH ×2 (10:04→20:00)
[2018-01-26] MEDS: TIOTROPIUM BROMIDE 18 MCG INH INH SCH (10:04)
[2018-01-26] MEDS: SODIUM CHLORIDE 0.9% FLUSH 10 ML FLUSH IV FLUSH SCH ×2 (10:04→21:00)
[2018-01-26] MEDS: BUDESONIDE-FORMOTEROL 160/4.5 MCG INHALER INH SCH ×2 (10:05→21:00)
[2018-01-26] MEDS: guaiFENesin/CODEINE SYRUP 200 MG/20 MG/10 ML CUP PO PRN (12:09)
--- NOTE | 2018-01-26 12:38 | HHI.PR ---
Subjective Remarks Follow-up recurrent spontaneous pneumothorax/Pulmonary fibrosis 01/25/18-patient seen and examined; still with Shortness of breath, Chest tube in place 01/26/18-patient seen and examined. I had a long discussion with patient regarding his terminal disease and he is now agreeable for evaluation from hospice Objective Vitals Vital Signs Date Time Temp Pulse Resp B/P (MAP) Pulse Ox O2 Delivery O2 Flow Rate FiO2 01/26/18 12:00 96.8 116 17 110/69 (83) 98 01/26/18 09:50 97 Nasal Cannula 4.00 01/26/18 08:00 96.5 115 16 110/71 (84) 97 01/26/18 06:20 Nasal Cannula 4.00 Humidified 01/26/18 04:11 93 Nasal Cannula 4.00 01/26/18 00:42 84 01/26/18 00:00 98.1 87 18 112/67 (82) 94 01/25/18 22:28 93 Nasal Cannula 01/25/18 20:05 91 01/25/18 20:00 96.0 87 20 118/67 (84) 93 01/25/18 17:05 3.50 01/25/18 16:00 98.3 105 17 110/59 (76) 94 I/O 01/25/18 01/25/18 01/25/18 01/26/18 01/26/18 01/26/18 07:00 15:00 23:00 07:00 15:00 23:00 Intake Total 480 ml 720 ml Output Total 675 ml 1350 ml 1150 ml Balance -675 ml -870 ml -430 ml Intake Oral 480 ml 720 ml Output Urine Total 625 ml 1250 ml 1100 ml Drainage Total 50 ml 100 ml 50 ml # Bowel Movements 0 Objective Remarks GENERAL: NAD SKIN: Warm and dry. HEAD: Normocephalic. EYES: No scleral icterus. No injection or drainage. NECK: Supple, trachea midline. No JVD or lymphadenopathy. CARDIOVASCULAR: Regular rate and rhythm without murmurs, gallops, or rubs. RESPIRATORY: Breath sounds decrease bilaterally and absent Left upper lung. No accessory muscle use. left chest tube in place GASTROINTESTINAL: Abdomen soft, non-tender, nondistended. MUSCULOSKELETAL: No cyanosis, or edema. BACK: Nontender without obvious deformity. No CVA tenderness. Procedures Chest tube placement Endotracheal tube placement A/P Problem List: (1) Recurrent spontaneous pneumothorax ICD Code: J93.83 - Other pneumothorax Status: Acute (2) COPD (chronic obstructive pulmonary disease) ICD Code: J44.9 - Chronic obstructive pulmonary disease, unspecified (3) Pulmonary fibrosis ICD Code: J84.10 - Pulmonary fibrosis, unspecified Status: Chronic Assessment and Plan 47 year-old man with 1. Acute hypoxic respiratory failure - requiring intubation and mechanical ventilation, now extubated 2. 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 COPD, chronic bronchitis with bronchiectasis 4. Pulmonary fibrosis 5. HTN Plan: 1. Wean FiO2 to keep oxygen saturation more than 88%, currently on 2 L nasal cannula 2. Bronchodilators 3. Continue chest tube to suction at -40. s/p chest tube up sizing by IR 4. Daily chest x-ray 5. s/p full course Augmentin. 6. Continue Solu-Medrol 40 mg IV every 6 hours per pulmonary 7. On antihypertensives with amlodipine and metoprolol 8. Artificial tears as needed 9. low-dose Xanax as needed for anxiety 10. GI/DVT prophylaxis 11. Plan discussed extensively by patient, Dr. Coy and . patient still not a candidate for CT surgery here due to friable tissue. most likely would benefit from permanent valve, but more-over, needs work-up for transplant however admission to [facility] has been denied. 12. Hospice has been consulted Kenneth Resendez MD Jan 26, 2018 12:38
[2018-01-26] MEDS: ALPRAZolam 0.25 MG TAB PO PRN ×2 (13:33→23:19)
[2018-01-26] MEDS: REMOVE OLD LIDOCAINE PATCH T-DERMAL SCH (21:00)
--- NOTE | 2018-01-26 22:33 | HHI.PR ---
Subjective Remarks No complaints. Chest tube in left chest with mild leak. Now on O2 N/C 2 L. CXR again shows a Stable medial left loculated Pneumothorax. Small left lateral pneumo. Objective Vital Signs Date Time Temp Pulse Resp B/P (MAP) Pulse Ox O2 Delivery O2 Flow Rate FiO2 01/26/18 21:44 98 Nasal Cannula 4.00 01/26/18 20:00 97.9 95 20 104/64 (77) 98 01/26/18 16:00 97.3 97 16 132/59 (83) 96 01/26/18 12:00 96.8 116 17 110/69 (83) 98 01/26/18 10:04 97 Nasal Cannula 4.00 01/26/18 09:50 97 Nasal Cannula 4.00 01/26/18 08:00 96.5 115 16 110/71 (84) 97 01/26/18 06:20 Nasal Cannula 4.00 Humidified 01/26/18 04:11 93 Nasal Cannula 4.00 01/26/18 00:42 84 01/26/18 00:00 98.1 87 18 112/67 (82) 94 I/O 01/25/18 01/25/18 01/25/18 01/26/18 01/26/18 01/26/18 06:59 14:59 22:59 06:59 14:59 22:59 Intake Total 480 ml 720 ml 720 ml Output Total 675 ml 1350 ml 1150 ml 650 ml Balance -675 ml -870 ml -430 ml 70 ml Intake Oral 480 ml 720 ml 720 ml Output Urine Total 625 ml 1250 ml 1100 ml 600 ml Chest Tube Drainage Total 50 ml Drainage Total 50 ml 100 ml 50 ml # Bowel Movements 0 0 Objective Remarks GENERAL: This is a well-built middle-aged man who is alert. No pallor or icterus, or edema. HEAD, EYES, EARS, NOSE, THROAT: Head normocephalic. The pupils are reactive and equal. Throat clear. NECK: The neck is supple. No venous distention. CHEST: Decreased breath sounds over the left mid and upper chest with occ crackles at the lung bases. HEART: Heart sounds are regular. S1 and S2. No murmur. No S3. ABDOMEN: Abdomen soft and without masses. No organomegaly or tenderness. The bowel sounds are active. EXTREMITIES: No lesions. No edema. NEUROLOGIC: Reflexes are 1 +. SKIN: No lesions. Assessment and Plan Assessment and Plan IMPRESSION: 1. Recurrent left pneumothorax with hypoxemia. 2. COPD and chronic bronchitis with bronchiectasis. 3. Basilar pulmonary fibrosis. 4. Hypertension. 5. Respiratory failure Plan : 1. Chest Tube to Wall Suction. 2. Cont O2 to 2 L 3. Cont Prednisone 10 mg daily 4. Duonebs qid. 5. Up in room as tolerated 6. IS at bedside q3h 7. PT and OT. Prerna Santos MD Jan 26, 2018 22:33
[2018-01-26] MEDS: HYDROmorphone HCL PF 2 MG/ML VIAL IV PUSH PRN (23:20)
[2018-01-27] VITALS (8 sets, daily range): BP systolic 97–119; BP diastolic 58–79; PULSE 85–98; RESP 18–20; TEMP 96.3–97.5; O2SAT 93–100
[2018-01-27] MEDS: HYDROmorphone HCL PF 2 MG/ML VIAL IV PUSH PRN ×2 (05:11→09:46)
[2018-01-27] MEDS: CHLORHEXIDINE 0.12% (ORAL KIT) 15 ML CUP MT SCH ×2 (07:39→20:00)
[2018-01-27] MEDS: ENOXAPARIN SODIUM 40 MG/0.4 ML SYRINGE SQ SCH (08:36)
[2018-01-27] MEDS: guaiFENesin E.R. 600 MG TAB PO SCH ×2 (08:36→19:29)
[2018-01-27] MEDS: predniSONE 10 MG TAB PO SCH (08:37)
[2018-01-27] MEDS: TIOTROPIUM BROMIDE 18 MCG INH INH SCH (08:37)
[2018-01-27] MEDS: DOCUSATE SODIUM 50 MG/SENNA 8.6 MG TAB PO SCH ×2 (08:37→19:30)
[2018-01-27] MEDS: METOPROLOL TARTRATE 25 MG TAB PO SCH ×2 (08:37→19:29)
[2018-01-27] MEDS: FAMOTIDINE 20 MG/2 ML VIAL IV PUSH SCH ×2 (08:37→19:30)
[2018-01-27] MEDS: SODIUM CHLORIDE 0.9% FLUSH 10 ML FLUSH IV FLUSH SCH ×2 (08:38→19:30)
[2018-01-27] MEDS: BUDESONIDE-FORMOTEROL 160/4.5 MCG INHALER INH SCH ×2 (08:39→19:31)
[2018-01-27] MEDS: LIDOCAINE HCL 5% PATCH T-DERMAL SCH (08:40)
--- NOTE | 2018-01-27 12:04 | HHI.PR ---
Subjective Remarks Follow-up recurrent spontaneous pneumothorax/Pulmonary fibrosis 01/25/18-patient seen and examined; still with Shortness of breath, Chest tube in place 01/26/18-patient seen and examined. I had a long discussion with patient regarding his terminal disease and he is now agreeable for evaluation from hospice 01/27/18-patient seen and examined, looks tired but no acute event overnight. + SOB. Hospice consultation pending Objective Vitals Vital Signs Date Time Temp Pulse Resp B/P (MAP) Pulse Ox O2 Delivery O2 Flow Rate FiO2 01/27/18 08:00 92 01/27/18 08:00 97.4 92 20 98/58 (71) 100 01/27/18 05:13 20 01/27/18 04:00 97.5 94 20 111/64 (80) 93 01/27/18 00:00 97.5 95 20 110/62 (78) 94 01/27/18 00:00 20 01/26/18 21:44 98 Nasal Cannula 4.00 01/26/18 20:00 97.9 95 20 104/64 (77) 98 01/26/18 19:20 4.00 01/26/18 19:20 77 01/26/18 16:00 97.3 97 16 132/59 (83) 96 I/O 01/26/18 01/26/18 01/26/18 01/27/18 01/27/18 01/27/18 07:00 15:00 23:00 07:00 15:00 23:00 Intake Total 720 ml 720 ml 240 ml Output Total 1150 ml 650 ml 1275 ml Balance -430 ml 70 ml -1035 ml Intake Oral 720 ml 720 ml 240 ml Output Urine Total 1100 ml 600 ml 1200 ml Chest Tube Drainage Total 50 ml 75 ml Drainage Total 50 ml # Bowel Movements 0 Imaging Last Impressions Chest X-Ray 01/24/18 0000 Signed Impressions: Service Date/Time: Wednesday, January 24, 2018 19:30 - CONCLUSION: 1. Stable chest x-ray with left chest tube in place on the stable lucency in the peripheral mid left hemithorax and stable lucency at the superior medial aspect of the left hemithorax which could be related to pneumothorax or bulla. 2. Stable bilateral lung interstitial and air space consolidation, right greater than left. Arnoldo Cheatham MD Tunnelled Chest Tube Removal 01/18/18 0000 Signed Impressions: Service Date/Time: Thursday, January 18, 2018 00:00 - CONCLUSION: Uncomplicated chest tube removal. Arnoldo Gonzalez MD Chest Tube Insertion 01/18/18 0000 Signed Impressions: Service Date/Time: Thursday, January 18, 2018 10:34 - CONCLUSION: Uncomplicated chest tube placement as above. Arnoldo Gonzalez MD Objective Remarks GENERAL: NAD SKIN: Warm and dry. HEAD: Normocephalic. EYES: No scleral icterus. No injection or drainage. NECK: Supple, trachea midline. No JVD or lymphadenopathy. CARDIOVASCULAR: Regular rate and rhythm without murmurs, gallops, or rubs. RESPIRATORY: Breath sounds decrease bilaterally and absent Left upper lung. No accessory muscle use. left chest tube in place GASTROINTESTINAL: Abdomen soft, non-tender, nondistended. MUSCULOSKELETAL: No cyanosis, or edema. BACK: Nontender without obvious deformity. No CVA tenderness. Procedures Chest tube placement Endotracheal tube placement A/P Problem List: (1) Recurrent spontaneous pneumothorax ICD Code: J93.83 - Other pneumothorax Status: Acute (2) COPD (chronic obstructive pulmonary disease) ICD Code: J44.9 - Chronic obstructive pulmonary disease, unspecified (3) Pulmonary fibrosis ICD Code: J84.10 - Pulmonary fibrosis, unspecified Status: Chronic Assessment and Plan 47 year-old man with 1. Acute hypoxic respiratory failure - requiring intubation and mechanical ventilation, now extubated 2. 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 COPD, chronic bronchitis with bronchiectasis 4. Pulmonary fibrosis 5. HTN Plan: 1. currently on 4 L nasal cannula 2. Bronchodilators 3. Continue chest tube to suction at -40. s/p chest tube up sizing by IR 4. Daily chest x-ray 5. s/p full course Augmentin. 6. Continue Prednisone 10mg daily 7. On antihypertensives with amlodipine and metoprolol 8. Artificial tears as needed 9. low-dose Xanax as needed for anxiety 10. GI/DVT prophylaxis 11. Plan discussed extensively by patient, Dr. Coy and . patient still not a candidate for CT surgery here due to friable tissue. most likely would benefit from permanent valve, but more-over, needs work-up for transplant however admission to [facility] has been denied. 12. Hospice consultation pending Kenneth Resendez MD Jan 27, 2018 12:04
--- NOTE | 2018-01-27 12:38 | RADRPT ---
EXAM DATE/TIME: 01/27/2018 12:06 [facility] COMPARISON: CHEST SINGLE AP, January 24, 2018, 19:30. INDICATIONS : Recurrent left pneumothorax. MEDICAL HISTORY : Chronic obstructive pulmonary disease. Hypertension Pneumothorax. Pneumonia. SURGICAL HISTORY : None. ENCOUNTER: Subsequent ACUITY: 1 month PAIN SCORE: 5/10 LOCATION: Left chest FINDINGS: A single view of the chest demonstrates diffuse interstitial prominence, right greater than left. Branch Sales Manager e loop thoracostomy tube is seen laterally in the left mid chest. Persistent lucency in the superomed ial aspect of the left hemithorax could represent a loculated pneumothorax or prominent bleb but is b asically unchanged. There is some bullous disease in the right apex as well. Heart size is upper limi ts of normal. Osseous structures are intact. CONCLUSION: 1. Diffuse interstitial prominence, right greater than left appears chronic and probably represent so me degree of fibrosis. 2. Stable position of left-sided thoracostomy tube. 3. Biapical emphysematous changes. Lucency in the superomedial aspect of the left hemithorax may repr esent loculated pneumothorax or prominent bleb. 4. No change from prior. Albert Hernandez MD on January 27, 2018 at 12:34 Board Certified Radiologist. This report was verified electronically.
[2018-01-27] MEDS: MORPHINE SULFATE 30 MG CONTROLLED RELEASE TAB PO SCH ×2 (14:55→21:53)
[2018-01-27] MEDS: guaiFENesin/CODEINE SYRUP 200 MG/20 MG/10 ML CUP PO PRN ×2 (15:53→21:52)
--- NOTE | 2018-01-27 16:41 | HHI.HCPN ---
Reason for visit a. To assist with evaluation and management of symptoms including: Dyspnea, weakness, anxiety, pain b. To assist medical decision maker(s) with: better understanding of current medical conditions; weighing benefits/burdens of medical treatment options; making medical treatment decisions. Subjective/Interval History Patient seen today to follow-up symptoms and goals of care. Patient is sitting up in bed visibly dyspneic and painful. There is no family at bedside. Chest tube to left flank with continued air leak. He is on oxygen 4 L via nasal cannula. We discussed his possible discharge options. At this time we are unable to remove the chest tube and halfway facilities will not take a chest tube. He also has no funding source. He is unable to go home because "home", he revealed today, is a homeless correction. Hospice care centers are capable of managing chest tubes, and at this time would appear to be his only choice. This was discussed with Dr. Wolff who agreed that patient was hospice appropriate and could be admitted to the [facility]. Hospice consultation pending for consent signature. . Family/friend interactions No family at bedside today. . Advance Directives Living Will: Never completed Health Care Surrogate: Never completed Durable Power of Consultant Dietitian: Never completed Objective Vital Signs Date Time Temp Pulse Resp B/P (MAP) Pulse Ox O2 Delivery O2 Flow Rate FiO2 01/27/18 12:00 96.3 87 18 102/64 (77) 100 01/27/18 08:00 92 01/27/18 08:00 97.4 92 20 98/58 (71) 100 01/27/18 05:13 20 01/27/18 04:00 97.5 94 20 111/64 (80) 93 01/27/18 00:00 97.5 95 20 110/62 (78) 94 01/27/18 00:00 20 01/26/18 21:44 98 Nasal Cannula 4.00 01/26/18 20:00 97.9 95 20 104/64 (77) 98 01/26/18 19:20 4.00 01/26/18 19:20 77 Intake & Output 01/27/18 01/27/18 07:00 19:00 Intake Total 240 ml Output Total 1275 ml Balance -1035 ml Intake Oral 240 ml Output Urine Total 1200 ml Chest Tube Drainage Total 75 ml Physical Exam CONSTITUTIONAL/GENERAL: This is an adequately nourished patient, sitting up in bed in mild distress. TUBES/LINES/DRAINS: Left chest tube, PIV right forearm NECK: Trachea midline. Supple. No palpable thyroid enlargement or nodularity. CARDIOVASCULAR: Regular rate and rhythm without murmurs, gallops, or rubs. No JVD. Peripheral pulses symmetric. RESPIRATORY/CHEST: Lungs diminished left greater than right, occasional wheezes , coarse lung sounds. Minimal left subcu emphysema. GASTROINTESTINAL: Abdomen soft, nondistended. No hepato-splenomegaly, or palpable masses. No guarding. Bowel sounds present. GENITOURINARY: Without palpable bladder distension. MUSCULOSKELETAL: Extremities without clubbing, cyanosis, or edema. NEUROLOGICAL: Alert, oriented 3-4, moves all extremities with equal strength and purpose. Generalized weakness PSYCHIATRIC: Mildly anxious, cooperative. . Diagnostic Tests Microbiology Microbiology Date/Time Source Procedure Growth Status 12/29/17 18:21 Blood Peripheral Aerobic Blood Culture - Final NO GROWTH IN 5 DAYS Complete 12/29/17 18:21 Blood Peripheral Anaerobic Blood Culture - Final NO GROWTH IN 5 DAYS Complete 01/14/18 18:00 Sputum Expectorated Sputum Gram Stain - Final Complete 01/14/18 18:00 Sputum Expectorated Sputum Sputum Culture - Final HEAVY GROWTH NORMAL RESPIRATORY MAKSIM Complete 12/29/17 17:00 Urine Catheterized Urine Legionella Antigen - Final PRESUMPTIVE NEGATIVE FOR LEGIONELLA P... Complete 12/29/17 17:00 Urine Catheterized Urine Streptococcus pneumoniae Antigen (M - Final PRESUMPTIVE NEGATIVE FOR STREPTOCOCCU... Complete . Imaging Last Impressions Chest X-Ray 01/27/18 0000 Signed Impressions: Service Date/Time: Saturday, January 27, 2018 12:06 - CONCLUSION: 1. Diffuse interstitial prominence, right greater than left appears chronic and probably represent some degree of fibrosis. 2. Stable position of left-sided thoracostomy tube. 3. Biapical emphysematous changes. Lucency in the superomedial aspect of the left hemithorax may represent loculated pneumothorax or prominent bleb. 4. No change from prior. Albert Hernandez MD Tunnelled Chest Tube Removal 01/18/18 0000 Signed Impressions: Service Date/Time: Thursday, January 18, 2018 00:00 - CONCLUSION: Uncomplicated chest tube removal. Arnoldo Gonzalez MD Chest Tube Insertion 01/18/18 0000 Signed Impressions: Service Date/Time: Thursday, January 18, 2018 10:34 - CONCLUSION: Uncomplicated chest tube placement as above. Arnoldo Gonzalez MD . Procedures 01/11: Left pigtail chest tube placement. 01/11: Endotracheal intubation 01/18: Replacement of left pigtail chest tube . Assessment and Plan Disease Oriented Problem List: (1) HTN (hypertension) (2) Recurrent spontaneous pneumothorax (3) Pulmonary fibrosis (4) COPD (chronic obstructive pulmonary disease) Symptom Scale: (1) Dyspnea and respiratory abnormalities 0-10 Scale: 5 (2) Weakness 0-10 Scale: 5 Pertinent Non-Medical Issues Psychosocial:He was born in [place] and finished high school there. 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 He was once and after 2 children. He has 1 son and 1 daughter. He was not in the . Spiritual: He was raised as a Jehovah witness but is nonpracticing. Legal: No legal issues noted. Ethical issues impacting care: No ethical issues impacting care. . Important Contacts Sister: Blanca Rodney [phone] Mother: Precious Echeverria Aunt: Lilia Barneyten: Son: Robin Dos Santos (estranged) Daughter: Karma Dos Santos Prognosis His prognosis is guarded. He is having recurrent pneumothoraces and has failed bleb resection and decortication. He has severe pulmonary fibrosis as well as COPD, pneumonitis and bronchiectasis. He was declined by [facility] for valve versus transplant. He is at high risk for further complications and decline. . Code Status: Full Code Plan PLAN: Legal decision maker: Patient is currently capacitated to make his own healthcare decisions. He has at this time declining to name a healthcare surrogate pending his further consideration. Per [place] statute he is aware that that would make his children healthcare proxies, if they wished to serve, in case of his incapacitation. Goals: Aggressive. CODE STATUS: FULL CODE SYMPTOMS: * Dyspnea -he is more dyspneic today, using accessory muscles. He is requiring pauses in conversation to be able to catch his breath. He remains on for l nasal cannula. Chest tube remains to -40 suction with positive air leak. Given the severity of his pulmonary fibrosis, recurrent spontaneous pneumothoraces and recent pneumonia he is at risk of continued dyspnea and recurrent respiratory compromise. He is not a candidate for CV surgery in this center per Dr. Blunt. Manager Of Photography service is coordinating with Dr. Santos to investigate tertiary centers for endobronchial valve placement and workup for lung transplant, however none have been identified and it is unlikely that he will survive long enough to receive a transplant. At this time he is considering hospice. * Weakness - he has been hospitalized a significant portion of the last 6 months resulting in debility. He has been too hypoxic to work with physical therapy and after his transfer to ICU on 01/11, physical therapy was suspended. As his chest tube is now reexpanding the lung. Physical therapy has now been reordered and patient is able to get up to the chair with assistance, but is remaining in bed today due to increased weakness, dyspnea and pain. * Anxiety: He has a baseline anxiety disorder and the worsening of his disease is exacerbating that. He states his anxiety is now slightly worse because he is concerned that he will be unable to qualify for transplant or valve, in which case his disease will likely be fatal. He does have Xanax available for use but is seeking information from medical providers to attempt to ameliorate his anxiety non-pharmacologically to the best of his ability. As he has a family history of pulmonary fibrosis in 2 maternal uncles and 1 maternal cousin , he is aware of the outcome. Palliative will continue to communicate with him on a daily basis to update him as to progress to assist in managing his anxiety. * Pain: He is complaining of significant pain, particularly with cough and is requiring regular delivery of pain medication to maintain control of the discomfort. Would recommend initiating a long-acting morphine for more stable oral pain control. In the past 24 hours he has received 5 mg of IV Dilaudid ( which converts to 100 mg of oral morphine) and 30 mg of oxycodone (which converts to 45 mg of oral morphine), equating to a total of 145 mg in 24 hours of oral morphine. Due to the combination of drugs being converted to a single agent would recommend reducing the dose by 25%. At 75% of combined dose (108.75 ), would recommend initiating 30 mg of long-acting morphine every 8 hours as a baseline dose to stabilize pain control. Spoke with Dr. Resendez today regarding pain medication adjustment and morphine SR has been ordered as indicated. Palliative care will continue to follow the patient during hospital course as condition evolves, to assist patient/decision-maker with understanding of their medical conditions, weighing benefits/burdens of treatment options, for clarification of goals of treatment. Additionally will assist with any symptoms of palliative concern. . Attestation To help prompt me to consider important information that might be impacting today's encounter and assessment, information from prior notes written by myself or my colleagues may have been "brought forward" into today's note. My signature on this note, however, is an attestation that I personally performed the exam, history, and/or decision-making noted today, and, unless otherwise indicated, the interactions with patient, family, and staff as well as the review of records all occurred today. I also attest that the listed assessment and stated plan reflect my best clinical judgment today based on the combination of historical information, prior notes, and today's exam/ interactions. When time spent is documented, it refers only to time spent today by the signer, or if indicated, combined time spent today by collaborating physician/nurse practitioner. . Jessica Cabrera Jan 27, 2018 16:41
[2018-01-27] MEDS: REMOVE OLD LIDOCAINE PATCH T-DERMAL SCH (19:30)
--- NOTE | 2018-01-27 19:53 | HHI.PR ---
Subjective Remarks No new complaints. Chest tube in left chest still with mild leak. Now on O2 N/C 4 L. CXR again shows a Stable medial left loculated Pneumothorax. Small left lateral pneumo. Objective Vital Signs Date Time Temp Pulse Resp B/P (MAP) Pulse Ox O2 Delivery O2 Flow Rate FiO2 01/27/18 16:00 96.9 92 18 97/64 (75) 100 01/27/18 12:00 96.3 87 18 102/64 (77) 100 01/27/18 08:00 92 01/27/18 08:00 97.4 92 20 98/58 (71) 100 01/27/18 05:13 20 01/27/18 04:00 97.5 94 20 111/64 (80) 93 01/27/18 00:00 97.5 95 20 110/62 (78) 94 01/27/18 00:00 20 01/26/18 21:44 98 Nasal Cannula 4.00 01/26/18 20:00 97.9 95 20 104/64 (77) 98 I/O 01/26/18 01/26/18 01/26/18 01/27/18 01/27/18 01/27/18 07:00 15:00 23:00 07:00 15:00 23:00 Intake Total 720 ml 720 ml 240 ml 1600 ml Output Total 1150 ml 650 ml 1275 ml 50 ml Balance -430 ml 70 ml -1035 ml 1550 ml Intake Oral 720 ml 720 ml 240 ml 1600 ml Output Urine Total 1100 ml 600 ml 1200 ml Chest Tube Drainage Total 50 ml 75 ml 50 ml Drainage Total 50 ml # Bowel Movements 0 1 Objective Remarks GENERAL: This is a well-built middle-aged man who is alert. No pallor or icterus, or edema. HEAD, EYES, EARS, NOSE, THROAT: Head normocephalic. The pupils are reactive and equal. Throat clear. NECK: The neck is supple. CHEST: Decreased breath sounds over the left mid and upper chest with occ crackles at the lung bases. HEART: Heart sounds are regular. S1 and S2. No murmur. No S3. ABDOMEN: Abdomen soft and without masses. No organomegaly or tenderness. The bowel sounds are active. EXTREMITIES: No lesions. No edema. NEUROLOGIC: Reflexes are 1 +. SKIN: No lesions. Assessment and Plan Assessment and Plan IMPRESSION: 1. Recurrent left pneumothorax with hypoxemia. 2. COPD and chronic bronchitis with bronchiectasis. 3. Basilar pulmonary fibrosis. 4. Hypertension. 5. Respiratory failure Plan : 1. Chest Tube to Wall Suction. 2. Cont O2 to 4 L 3. Prednisone 10 mg daily 4. Duonebs qid. 5. Up in room as tolerated 6. IS at bedside q3h 7. PT and OT. 8. CXR in am Prerna Santos MD Jan 27, 2018 19:53
[2018-01-27] MEDS: ALPRAZolam 0.25 MG TAB PO PRN (21:54)
[2018-01-28 00:57] VITALS: BP 104/72; PULSE 92; RESP 18; TEMP 97.2; O2SAT 99
[2018-01-28] MEDS: HYDROmorphone HCL PF 2 MG/ML VIAL IV PUSH PRN (02:55)
[2018-01-28] MEDS: guaiFENesin/CODEINE SYRUP 200 MG/20 MG/10 ML CUP PO PRN ×3 (02:55→20:45)
[2018-01-28 04:00] VITALS: BP 99/62; PULSE 83; PULSE 84; RESP 20; TEMP 97.9; O2SAT 97
[2018-01-28] MEDS: MORPHINE SULFATE 30 MG CONTROLLED RELEASE TAB PO SCH ×3 (05:32→20:47)
[2018-01-28 08:00] VITALS: BP 107/76; PULSE 89; RESP 20; TEMP 97.9; O2SAT 98
[2018-01-28] MEDS: CHLORHEXIDINE 0.12% (ORAL KIT) 15 ML CUP MT SCH ×2 (08:00→20:00)
[2018-01-28] MEDS: METOPROLOL TARTRATE 25 MG TAB PO SCH ×2 (08:10→20:47)
[2018-01-28] MEDS: guaiFENesin E.R. 600 MG TAB PO SCH ×2 (08:12→20:53)
[2018-01-28] MEDS: FAMOTIDINE 20 MG/2 ML VIAL IV PUSH SCH ×2 (08:12→20:46)
[2018-01-28] MEDS: predniSONE 10 MG TAB PO SCH (08:12)
[2018-01-28] MEDS: SODIUM CHLORIDE 0.9% FLUSH 10 ML FLUSH IV FLUSH SCH ×2 (08:13→20:46)
[2018-01-28] MEDS: LIDOCAINE HCL 5% PATCH T-DERMAL SCH (08:13)
[2018-01-28] MEDS: ENOXAPARIN SODIUM 40 MG/0.4 ML SYRINGE SQ SCH (08:14)
[2018-01-28] MEDS: DOCUSATE SODIUM 50 MG/SENNA 8.6 MG TAB PO SCH ×2 (08:14→20:45)
[2018-01-28] MEDS: TIOTROPIUM BROMIDE 18 MCG INH INH SCH (08:20)
[2018-01-28] MEDS: BUDESONIDE-FORMOTEROL 160/4.5 MCG INHALER INH SCH ×2 (08:20→20:50)
--- NOTE | 2018-01-28 08:50 | HHI.PR ---
Subjective Remarks In bed appears in nad. Satting well on 4L NC No cp, sob, n/v/d/c. Objective Vitals Vital Signs Date Time Temp Pulse Resp B/P (MAP) Pulse Ox O2 Delivery O2 Flow Rate FiO2 01/28/18 08:00 97.9 89 20 107/76 (86) 98 01/28/18 06:32 18 01/28/18 04:00 97.9 83 20 99/62 (74) 97 01/28/18 04:00 84 01/28/18 03:25 18 01/28/18 00:57 97.2 92 18 104/72 (83) 99 01/28/18 00:03 18 01/27/18 23:44 85 01/27/18 21:43 96.7 92 18 119/79 (92) 98 01/27/18 21:20 98 01/27/18 19:30 Nasal Cannula 4.00 30 Humidified 01/27/18 16:00 96.9 92 18 97/64 (75) 100 01/27/18 12:00 96.3 87 18 102/64 (77) 100 I/O 01/27/18 01/27/18 01/27/18 01/28/18 01/28/18 01/28/18 07:00 15:00 23:00 07:00 15:00 23:00 Intake Total 240 ml 1600 ml 360 ml Output Total 1275 ml 50 ml 650 ml Balance -1035 ml 1550 ml -290 ml Intake Oral 240 ml 1600 ml 360 ml Output Urine Total 1200 ml 650 ml Chest Tube Drainage Total 75 ml 50 ml # Bowel Movements 1 1 Imaging Last Impressions Chest X-Ray 01/27/18 0000 Signed Impressions: Service Date/Time: Saturday, January 27, 2018 12:06 - CONCLUSION: 1. Diffuse interstitial prominence, right greater than left appears chronic and probably represent some degree of fibrosis. 2. Stable position of left-sided thoracostomy tube. 3. Biapical emphysematous changes. Lucency in the superomedial aspect of the left hemithorax may represent loculated pneumothorax or prominent bleb. 4. No change from prior. Albert Hernandez MD Tunnelled Chest Tube Removal 01/18/18 0000 Signed Impressions: Service Date/Time: Thursday, January 18, 2018 00:00 - CONCLUSION: Uncomplicated chest tube removal. Arnoldo Gonzalez MD Chest Tube Insertion 01/18/18 0000 Signed Impressions: Service Date/Time: Thursday, January 18, 2018 10:34 - CONCLUSION: Uncomplicated chest tube placement as above. Arnoldo Gonzalez MD Objective Remarks GENERAL: 47 yo male, chronically ill appearing. SKIN: Warm and dry. HEAD: Normocephalic. EYES: No scleral icterus. No injection or drainage. NECK: Supple, trachea midline. No JVD or lymphadenopathy. CARDIOVASCULAR: Regular rate and rhythm without murmurs, gallops, or rubs. RESPIRATORY: Breath sounds decrease bilaterally and absent Left upper lung. No accessory muscle use. left chest tube in place GASTROINTESTINAL: Abdomen soft, non-tender, nondistended. MUSCULOSKELETAL: No cyanosis, or edema. BACK: Nontender without obvious deformity. No CVA tenderness. 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 s/p chest tube up sizing by IR 01/18/18 Daily chest x-ray S/p full course Augmentin. Continue Prednisone 10mg daily On antihypertensives with amlodipine and metoprolol Artificial tears as needed Low-dose Xanax as needed for anxiety GI/DVT prophylaxis Plan discussed extensively by patient, Dr. Coy and . Patient still not a candidate for CT surgery here due to friable tissue. Most likely would benefit from permanent valve, but more-over, needs work-up for transplant however admission to [facility] has been denied. Hospice consulted Geovanna Guy MD Jan 28, 2018 08:50
--- NOTE | 2018-01-28 11:31 | HHI.PR ---
Subjective Remarks Patient is on 4L oxygen with good sats. Afebrile. Objective Vital Signs Vital Signs Date Time Temp Pulse Resp B/P (MAP) Pulse Ox O2 Delivery O2 Flow Rate FiO2 01/28/18 08:00 97.9 89 20 107/76 (86) 98 01/28/18 06:32 18 01/28/18 04:00 97.9 83 20 99/62 (74) 97 01/28/18 04:00 84 01/28/18 03:25 18 01/28/18 00:57 97.2 92 18 104/72 (83) 99 01/28/18 00:03 18 01/27/18 23:44 85 01/27/18 21:43 96.7 92 18 119/79 (92) 98 01/27/18 21:20 98 01/27/18 19:30 Nasal Cannula 4.00 30 Humidified 01/27/18 16:00 96.9 92 18 97/64 (75) 100 01/27/18 12:00 96.3 87 18 102/64 (77) 100 I/O 01/27/18 01/27/18 01/27/18 01/28/18 01/28/18 01/28/18 07:00 15:00 23:00 07:00 15:00 23:00 Intake Total 240 ml 1600 ml 360 ml Output Total 1275 ml 50 ml 650 ml Balance -1035 ml 1550 ml -290 ml Intake Oral 240 ml 1600 ml 360 ml Output Urine Total 1200 ml 650 ml Chest Tube Drainage Total 75 ml 50 ml # Bowel Movements 1 1 Other Results Last Impressions Chest X-Ray 01/27/18 0000 Signed Impressions: Service Date/Time: Saturday, January 27, 2018 12:06 - CONCLUSION: 1. Diffuse interstitial prominence, right greater than left appears chronic and probably represent some degree of fibrosis. 2. Stable position of left-sided thoracostomy tube. 3. Biapical emphysematous changes. Lucency in the superomedial aspect of the left hemithorax may represent loculated pneumothorax or prominent bleb. 4. No change from prior. Albert Hernandez MD Tunnelled Chest Tube Removal 01/18/18 0000 Signed Impressions: Service Date/Time: Thursday, January 18, 2018 00:00 - CONCLUSION: Uncomplicated chest tube removal. Arnoldo Gonzalez MD Chest Tube Insertion 01/18/18 0000 Signed Impressions: Service Date/Time: Thursday, January 18, 2018 10:34 - CONCLUSION: Uncomplicated chest tube placement as above. Arnoldo Gonzalez MD Objective Remarks GENERAL: Patient is 47 yo lying in be din NAD SKIN: Warm and dry. HEAD: Normocephalic. EYES: No scleral icterus. No injection or drainage. NECK: Supple, trachea midline. No JVD or lymphadenopathy. CARDIOVASCULAR: Regular rate and rhythm without murmurs, gallops, or rubs. RESPIRATORY: Breath sounds equal bilaterally. Coarse BS GASTROINTESTINAL: Abdomen soft, non-tender, nondistended. MUSCULOSKELETAL: No cyanosis, or edema. Neuro: Awake, alert A/P Assessment and Plan 1)Acute hypercapnic and hypoxemic resp failure 2)Recurrent left pneumothorax 3)COPD and chronic bronchitis with bronchiectasis. 4)Basilar pulmonary fibrosis. 5)Hypertension. Plan : Continue to wean down oxygen as to keep sat >92% Bronchodilators ( DuoNeb, Symbicort, Spiriva) NIPPV PRN for resp distress, IS On Prednisone 10mg daily Chest tube to suction, check CXR in am CTS is following- Dr. Blunt, Pain control GI/DVT prophylaxis- on Lovenox 40mg daily Continue treatment plan Nedra Baron MD Jan 28, 2018 11:31
[2018-01-28 12:00] VITALS: BP 101/67; PULSE 116; RESP 18; TEMP 99.3; O2SAT 93
[2018-01-28] MEDS: ALPRAZolam 0.25 MG TAB PO PRN (12:03)
[2018-01-28 16:00] VITALS: BP 106/67; PULSE 109; RESP 18; TEMP 99.2; O2SAT 92
[2018-01-28 20:00] VITALS: BP 109/74; PULSE 109; RESP 20; TEMP 99.7; O2SAT 92
[2018-01-28] MEDS: REMOVE OLD LIDOCAINE PATCH T-DERMAL SCH (20:47)
[2018-01-29] VITALS (7 sets, daily range): BP systolic 104–114; BP diastolic 68–73; PULSE 81–110; RESP 16–20; TEMP 95.7–98.4; O2SAT 91–97
[2018-01-29] MEDS: guaiFENesin/CODEINE SYRUP 200 MG/20 MG/10 ML CUP PO PRN ×3 (03:57→20:07)
--- NOTE | 2018-01-29 05:50 | RADRPT ---
EXAM DATE/TIME: 01/29/2018 03:32 [facility] COMPARISON: CHEST SINGLE AP, January 27, 2018, 12:06. INDICATIONS : Pneumothorax. MEDICAL HISTORY : Chronic obstructive pulmonary disease. Hypertension SURGICAL HISTORY : None. ENCOUNTER: Subsequent ACUITY: 1 month PAIN SCORE: Non-responsive. LOCATION: Bilateral chest FINDINGS: Patchy diffuse parenchymal consolidation again seen of both lungs, not significantly changed. Left chest tube again seen laterally on the left. There is a small to moderate persistent left pneumo thorax, mostly loculated superomedially. Mild right mediastinal shift, unchanged. No significant effu denise seen. There is no pneumothorax on the right. CONCLUSION: 1. Persistent small to moderate left pneumothorax loculated superomedially. There is a chest tube pre sent laterally. An apparent slight tension component with mild rightward mediastinal shift present bu t this is unchanged. 2. Patchy parenchymal opacities in both lungs persist and are not significantly changed. Arnoldo Christensen MD on January 29, 2018 at 5:47 Board Certified Radiologist. This report was verified electronically.
[2018-01-29] MEDS: MORPHINE SULFATE 30 MG CONTROLLED RELEASE TAB PO SCH ×3 (06:03→21:54)
[2018-01-29] MEDS: CHLORHEXIDINE 0.12% (ORAL KIT) 15 ML CUP MT SCH ×2 (07:04→20:00)
[2018-01-29] MEDS: ENOXAPARIN SODIUM 40 MG/0.4 ML SYRINGE SQ SCH (07:04)
[2018-01-29] MEDS: DOCUSATE SODIUM 50 MG/SENNA 8.6 MG TAB PO SCH ×2 (07:04→20:07)
[2018-01-29] MEDS: guaiFENesin E.R. 600 MG TAB PO SCH ×2 (07:04→20:08)
[2018-01-29] MEDS: METOPROLOL TARTRATE 25 MG TAB PO SCH ×2 (07:39→20:07)
[2018-01-29] MEDS: LIDOCAINE HCL 5% PATCH T-DERMAL SCH (07:40)
[2018-01-29] MEDS: predniSONE 10 MG TAB PO SCH (07:41)
[2018-01-29] MEDS: TIOTROPIUM BROMIDE 18 MCG INH INH SCH (07:41)
[2018-01-29] MEDS: FAMOTIDINE 20 MG/2 ML VIAL IV PUSH SCH ×2 (07:41→20:06)
[2018-01-29] MEDS: BUDESONIDE-FORMOTEROL 160/4.5 MCG INHALER INH SCH ×2 (07:42→20:10)
[2018-01-29] MEDS: SODIUM CHLORIDE 0.9% FLUSH 10 ML FLUSH IV FLUSH SCH ×2 (07:42→20:06)
[2018-01-29] MEDS: HYDROmorphone HCL PF 2 MG/ML VIAL IV PUSH PRN ×2 (10:11→20:08)
--- NOTE | 2018-01-29 10:15 | HHI.PR ---
Subjective Remarks Patient remains on 4L oxygen with good sats. CXR this morning unchanged (small to mod loculated left PTX CT in place) Objective Vital Signs Vital Signs Date Time Temp Pulse Resp B/P (MAP) Pulse Ox O2 Delivery O2 Flow Rate FiO2 01/29/18 08:00 97.3 106 20 112/72 (85) 91 01/29/18 04:00 101 01/29/18 00:00 104 01/29/18 00:00 98.2 81 19 104/73 (83) 94 01/28/18 21:08 Nasal Cannula 4.00 Humidified 01/28/18 20:00 99.7 109 20 109/74 (86) 92 01/28/18 16:00 99.2 109 18 106/67 (80) 92 01/28/18 12:00 99.3 116 18 101/67 (78) 93 I/O 01/28/18 01/28/18 01/28/18 01/29/18 01/29/18 01/29/18 07:00 15:00 23:00 07:00 15:00 23:00 Intake Total 360 ml 720 ml 240 ml Output Total 650 ml 780 ml 630 ml Balance -290 ml -60 ml -390 ml Intake Oral 360 ml 720 ml 240 ml Output Urine Total 650 ml 700 ml 600 ml Chest Tube Drainage Total 80 ml 30 ml # Bowel Movements 1 0 Other Results Last Impressions Chest X-Ray 01/29/18 0600 Signed Impressions: Service Date/Time: Monday, January 29, 2018 03:32 - CONCLUSION: 1. Persistent small to moderate left pneumothorax loculated superomedially. There is a chest tube present laterally. An apparent slight tension component with mild rightward mediastinal shift present but this is unchanged. 2. Patchy parenchymal opacities in both lungs persist and are not significantly changed. Arnoldo Christensen MD Tunnelled Chest Tube Removal 01/18/18 0000 Signed Impressions: Service Date/Time: Thursday, January 18, 2018 00:00 - CONCLUSION: Uncomplicated chest tube removal. Arnoldo Gonzalez MD Chest Tube Insertion 01/18/18 0000 Signed Impressions: Service Date/Time: Thursday, January 18, 2018 10:34 - CONCLUSION: Uncomplicated chest tube placement as above. Arnoldo Gonzalez MD Objective Remarks GENERAL: Patient is 47 yo lying in be din NAD SKIN: Warm and dry. HEAD: Normocephalic. EYES: No scleral icterus. No injection or drainage. NECK: Supple, trachea midline. No JVD or lymphadenopathy. CARDIOVASCULAR: Tachycardic without murmurs, gallops, or rubs. RESPIRATORY: Breath sounds equal bilaterally. Coarse BS GASTROINTESTINAL: Abdomen soft, non-tender, nondistended. MUSCULOSKELETAL: No cyanosis, or edema. Neuro: Awake, alert A/P Assessment and Plan 1)Acute hypercapnic and hypoxemic resp failure 2)Recurrent left loculated pneumothorax 3)COPD and chronic bronchitis with bronchiectasis. 4)Basilar pulmonary fibrosis. 5)Hypertension. Plan : Continue to wean down oxygen as to keep sat >92% Bronchodilators ( DuoNeb, Symbicort, Spiriva) NIPPV PRN for resp distress, IS On Prednisone 10mg daily Chest tube to suction, CXR this morning ( Unchanged)-. Persistent small to moderate left pneumothorax loculated superomedially. There is a chest tube present laterally. Patchy parenchymal opacities in both lungs persist and are not significantly changed. CTS is following- Dr. Blunt, Pain control GI/DVT prophylaxis- on Lovenox 40mg daily Continue treatment plan Nedra Baron MD Jan 29, 2018 10:15
[2018-01-29] MEDS ORDERED: RESP: ALBUTEROL 2.5 MG/IPRATROPIUM 0.5 MG NEB (PRN) NEB (10:30)
[2018-01-29] MEDS: RESP: ALBUTEROL 2.5 MG/IPRATROPIUM 0.5 MG NEB (SCH) NEB ×3 (12:00→19:47)
--- NOTE | 2018-01-29 14:18 | HHI.PR ---
Subjective Remarks Patient stated he breathing okay, however his having chest pain he stated 8 out of 10 with positive cough no fever Discussed with him hospice options he stated he wanted to discuss with his family prior to give a decision Objective Vitals Vital Signs Date Time Temp Pulse Resp B/P (MAP) Pulse Ox O2 Delivery O2 Flow Rate FiO2 01/29/18 12:00 98.0 100 16 104/73 (83) 95 01/29/18 08:00 97.3 106 20 112/72 (85) 91 01/29/18 04:00 101 01/29/18 00:00 104 01/29/18 00:00 98.2 81 19 104/73 (83) 94 01/28/18 21:08 Nasal Cannula 4.00 Humidified 01/28/18 20:00 99.7 109 20 109/74 (86) 92 01/28/18 16:00 99.2 109 18 106/67 (80) 92 I/O 01/28/18 01/28/18 01/28/18 01/29/18 01/29/18 01/29/18 07:00 15:00 23:00 07:00 15:00 23:00 Intake Total 360 ml 720 ml 240 ml Output Total 650 ml 780 ml 630 ml Balance -290 ml -60 ml -390 ml Intake Oral 360 ml 720 ml 240 ml Output Urine Total 650 ml 700 ml 600 ml Chest Tube Drainage Total 80 ml 30 ml # Bowel Movements 1 0 Objective Remarks GENERAL: This is a chronically ill 47 years old male patient in no acute distress. CARDIOVASCULAR: Regular rate and rhythm without murmurs, gallops, or rubs. RESPIRATORY: Decreased breath sounds with crackles bilaterally, chest tube on the left side GASTROINTESTINAL: Abdomen soft, non-tender, nondistended. Normal active bowel sounds MUSCULOSKELETAL: Extremities without clubbing, cyanosis, or edema. NEURO: Alert & Oriented x4 to person, place, time, situation. Moves all ext x4 Procedures Chest tube placement Endotracheal tube placement A/P Problem List: (1) Recurrent spontaneous pneumothorax ICD Code: J93.83 - Other pneumothorax Status: Acute (2) COPD (chronic obstructive pulmonary disease) ICD Code: J44.9 - Chronic obstructive pulmonary disease, unspecified (3) Pulmonary fibrosis ICD Code: J84.10 - Pulmonary fibrosis, unspecified Status: Chronic Assessment and Plan 01/29: Chest x-ray today still showing small to moderate pneumothorax, continue chest tube, O2, DuoNeb, monitor O2 sat, follow with pulmonology Dr. 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 s/p chest tube up sizing by IR 01/18/18 Daily chest x-ray S/p full course Augmentin. Continue Prednisone 10mg daily On antihypertensives with amlodipine and metoprolol Artificial tears as needed Low-dose Xanax as needed for anxiety GI/DVT prophylaxis Plan discussed previously by Dr. Guy with patient, Dr. Coy and . Patient still not a candidate for CT surgery here due to friable tissue. Most likely would benefit from permanent valve, but more-over, needs work-up for transplant however admission to [facility] has been denied. Hospice consulted Nichole Bonilla MD Jan 29, 2018 14:18
[2018-01-29] MEDS: REMOVE OLD LIDOCAINE PATCH T-DERMAL SCH (20:07)
[2018-01-30] VITALS (11 sets, daily range): BP systolic 96–125; BP diastolic 62–89; PULSE 71–104; RESP 16–20; TEMP 96.7–98.9; O2SAT 92–97
[2018-01-30] MEDS: RESP: ALBUTEROL 2.5 MG/IPRATROPIUM 0.5 MG NEB (SCH) NEB ×7 (00:11→23:18)
[2018-01-30] MEDS: guaiFENesin/CODEINE SYRUP 200 MG/20 MG/10 ML CUP PO PRN ×4 (00:27→21:58)
[2018-01-30] MEDS: ALPRAZolam 0.25 MG TAB PO PRN ×2 (00:28→15:31)
[2018-01-30] MEDS: MORPHINE SULFATE 30 MG CONTROLLED RELEASE TAB PO SCH ×3 (05:18→21:58)
--- NOTE | 2018-01-30 06:41 | RADRPT ---
EXAM DATE/TIME: 01/30/2018 05:30 [place] COMPARISON: CHEST SINGLE AP, January 29, 2018, 3:32. INDICATIONS : Short of breath, coughing, weakness, evaluate pneumothorax MEDICAL HISTORY : Chronic obstructive pulmonary disease. Hypertension SURGICAL HISTORY : None. ENCOUNTER: Subsequent ACUITY: 1 month PAIN SCORE: Non-responsive. LOCATION: Bilateral chest FINDINGS: A single portable frontal view of the chest shows a thoracostomy tube in the lateral left hemithorax. A medial upper pneumothorax is unchanged. Patchy areas of consolidation are seen throughout both eric gs. These are unchanged. No effusions. Heart is normal in size. CONCLUSION: Unchanged exam. Inder Becerra Jr., MD on January 30, 2018 at 6:39 Board Certified Radiologist. This report was verified electronically.
[2018-01-30] MEDS: CHLORHEXIDINE 0.12% (ORAL KIT) 15 ML CUP MT SCH ×2 (08:00→20:00)
[2018-01-30] MEDS: METOPROLOL TARTRATE 25 MG TAB PO SCH ×2 (08:55→21:00)
[2018-01-30] MEDS: FAMOTIDINE 20 MG/2 ML VIAL IV PUSH SCH ×2 (08:55→21:59)
[2018-01-30] MEDS: predniSONE 10 MG TAB PO SCH (08:55)
[2018-01-30] MEDS: LIDOCAINE HCL 5% PATCH T-DERMAL SCH (08:57)
[2018-01-30] MEDS: SODIUM CHLORIDE 0.9% FLUSH 10 ML FLUSH IV FLUSH SCH ×2 (08:58→22:08)
[2018-01-30] MEDS: DOCUSATE SODIUM 50 MG/SENNA 8.6 MG TAB PO SCH ×2 (08:59→21:58)
[2018-01-30] MEDS: guaiFENesin E.R. 600 MG TAB PO SCH ×3 (08:59→21:58)
[2018-01-30] MEDS: ENOXAPARIN SODIUM 40 MG/0.4 ML SYRINGE SQ SCH (09:00)
[2018-01-30] MEDS: TIOTROPIUM BROMIDE 18 MCG INH INH SCH (09:00)
[2018-01-30] MEDS: BUDESONIDE-FORMOTEROL 160/4.5 MCG INHALER INH SCH ×2 (09:02→21:59)
[2018-01-30] MEDS: HYDROmorphone HCL PF 2 MG/ML VIAL IV PUSH PRN (09:09)
[2018-01-30 12:24] LABS: AUTOMATED NEUTROPHIL # 5.2 TH/MM3 (1.8-7.7); BASOPHIL % 0.3 % (0.0-2.0); BICARBONATE 34.4 MEQ/L (21.0-32.0); CALCIUM 8.7 MG/DL (8.5-10.1); CREATININE 0.56 MG/DL (0.60-1.30); EOSINOPHIL # 0.2 TH/MM3 (0-0.4); EOSINOPHIL % 2.4 % (0.0-4.0); HEMATOCRIT 36.7 % (39.0-51.0); HEMOGLOBIN 12.3 GM/DL (13.0-17.0); LYMPHOCYTE # 1.3 TH/MM3 (1.0-4.8); MEAN CELL VOLUME 84.6 FL (80.0-100.0); MEAN CORPUSCULAR HEMOGLOBIN 28.4 PG (27.0-34.0); MEAN CORPUSCULAR HGB CONC 33.6 % (32.0-36.0); MEAN PLATELET VOLUME 7.1 FL (7.0-11.0); MONO % 8.6 % (0.0-8.0); MONOCYTE # 0.6 TH/MM3 (0-0.9); NEUT % 70.7 % (16.0-70.0); PLATELET COUNT 221 TH/MM3 (150-450); RED BLOOD COUNT 4.33 MIL/MM3 (4.50-5.90); RED CELL DISTRIBUTION WIDTH 14.6 % (11.6-17.2); WHITE BLOOD COUNT 7.4 TH/MM3 (4.0-11.0)
--- NOTE | 2018-01-30 16:08 | HHI.PR ---
Subjective Remarks Patient resting in bed on O2 nasal cannula He told me the meeting with his family will be on Tuesday I discussed with him the need to get that meeting sooner Objective Vitals Vital Signs Date Time Temp Pulse Resp B/P (MAP) Pulse Ox O2 Delivery O2 Flow Rate FiO2 01/30/18 16:01 95 Nasal Cannula 3.00 01/30/18 12:00 98.9 104 20 106/69 (81) 92 01/30/18 08:30 16 01/30/18 08:00 97.3 99 16 110/65 (80) 94 01/30/18 07:45 93 Nasal Cannula 3.00 01/30/18 05:58 97.2 71 17 120/62 (81) 96 01/30/18 04:00 91 01/30/18 00:18 100 01/30/18 00:00 96.7 100 18 125/89 (101) 97 01/29/18 20:10 Nasal Cannula 4.00 Humidified 01/29/18 20:00 97 01/29/18 20:00 98.4 104 18 106/68 (81) 97 01/29/18 19:49 Nasal Cannula 3.00 I/O 01/29/18 01/29/18 01/29/18 01/30/18 01/30/18 01/30/18 07:00 15:00 23:00 07:00 15:00 23:00 Intake Total 240 ml 1400 ml 240 ml Output Total 630 ml 560 ml 340 ml Balance -390 ml 840 ml -100 ml Intake Oral 240 ml 1400 ml 240 ml Output Urine Total 600 ml 500 ml 300 ml Chest Tube Drainage Total 30 ml 60 ml 40 ml Result Diagram: 01/30/18 1117 01/30/18 1117 Objective Remarks GENERAL: This is a chronically ill 47 years old male patient in no acute distress. CARDIOVASCULAR: Regular rate and rhythm without murmurs, gallops, or rubs. RESPIRATORY: Decreased breath sounds with crackles bilaterally, chest tube on the left side GASTROINTESTINAL: Abdomen soft, non-tender, nondistended. Normal active bowel sounds MUSCULOSKELETAL: Extremities without clubbing, cyanosis, or edema. NEURO: Alert & Oriented x4 to person, place, time, situation. Moves all ext x4 Procedures Chest tube placement Endotracheal tube placement A/P Problem List: (1) Recurrent spontaneous pneumothorax ICD Code: J93.83 - Other pneumothorax Status: Acute (2) COPD (chronic obstructive pulmonary disease) ICD Code: J44.9 - Chronic obstructive pulmonary disease, unspecified (3) Pulmonary fibrosis ICD Code: J84.10 - Pulmonary fibrosis, unspecified Status: Chronic Assessment and Plan 01/29: Chest x-ray today still showing small to moderate pneumothorax, continue chest tube, O2, DuoNeb, monitor O2 sat, follow with pulmonology Dr. 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 s/p chest tube up sizing by IR 01/18/18 Daily chest x-ray S/p full course Augmentin. Continue Prednisone 10mg daily On antihypertensives with amlodipine and metoprolol Artificial tears as needed Low-dose Xanax as needed for anxiety GI/DVT prophylaxis Plan discussed previously by Dr. Guy with patient, Dr. Coy and . Patient still not a candidate for CT surgery here due to friable tissue. Most likely would benefit from permanent valve, but more-over, needs work-up for transplant however admission to [facility] has been denied. Hospice consulted Nichole Bonilla MD Jan 30, 2018 16:08
--- NOTE | 2018-01-30 18:21 | HHI.PR ---
Subjective Remarks No new complaints. Chest tube in left chest still with mild leak. Now on O2 N/C 4 L. CXR again shows a Stable medial left loculated Pneumothorax. Small left lateral pneumo. Has some drainage from chest tube. Objective Vital Signs Date Time Temp Pulse Resp B/P (MAP) Pulse Ox O2 Delivery O2 Flow Rate FiO2 01/30/18 16:01 95 Nasal Cannula 3.00 01/30/18 16:00 98.5 94 18 99/64 (76) 92 01/30/18 12:00 98.9 104 20 106/69 (81) 92 01/30/18 08:30 16 01/30/18 08:00 97.3 99 16 110/65 (80) 94 01/30/18 07:45 93 Nasal Cannula 3.00 01/30/18 05:58 97.2 71 17 120/62 (81) 96 01/30/18 04:00 91 01/30/18 00:18 100 01/30/18 00:00 96.7 100 18 125/89 (101) 97 01/29/18 20:10 Nasal Cannula 4.00 Humidified 01/29/18 20:00 97 01/29/18 20:00 98.4 104 18 106/68 (81) 97 01/29/18 19:49 Nasal Cannula 3.00 I/O 01/29/18 01/29/18 01/29/18 01/30/18 01/30/18 01/30/18 07:00 15:00 23:00 07:00 15:00 23:00 Intake Total 240 ml 1400 ml 240 ml Output Total 630 ml 560 ml 340 ml Balance -390 ml 840 ml -100 ml Intake Oral 240 ml 1400 ml 240 ml Output Urine Total 600 ml 500 ml 300 ml Chest Tube Drainage Total 30 ml 60 ml 40 ml Result Diagram: 01/30/18 1117 01/30/18 1117 Objective Remarks GENERAL: This is a well-built middle-aged man who is alert. No pallor or icterus, or edema. HEAD, EYES, EARS, NOSE, THROAT: Head normocephalic. The pupils are reactive and equal. Throat clear. NECK: The neck is supple. CHEST: Decreased breath sounds over the left mid and upper chest with occ crackles at the lung bases. HEART: Heart sounds are regular. S1 and S2. No murmur. No S3. ABDOMEN: Abdomen soft and without masses. No organomegaly or tenderness. The bowel sounds are active. EXTREMITIES: No lesions. No edema. NEUROLOGIC: Reflexes are 1 +. SKIN: No lesions. Assessment and Plan Assessment and Plan IMPRESSION: 1. Recurrent left pneumothorax with hypoxemia. 2. COPD and chronic bronchitis with bronchiectasis. 3. Basilar pulmonary fibrosis. 4. Hypertension. 5. Respiratory failure Plan : 1. Chest Tube to Wall Suction. 2. Cont O2 to 3 L 3. Cont Prednisone 10 mg daily 4. Duonebs qid. 5. Up in room as tolerated 6. IS at bedside q3h 7. PT and OT. 8. Will ask Thoracic surgery for Evaluation Prerna Santos MD Jan 30, 2018 18:21
[2018-01-30] MEDS: REMOVE OLD LIDOCAINE PATCH T-DERMAL SCH (21:00)
[2018-01-31] VITALS (9 sets, daily range): BP systolic 100–117; BP diastolic 59–96; PULSE 88–107; RESP 16–21; TEMP 96.5–98.5; O2SAT 92–95
[2018-01-31] MEDS: RESP: ALBUTEROL 2.5 MG/IPRATROPIUM 0.5 MG NEB (SCH) NEB ×5 (03:55→20:36)
[2018-01-31] MEDS: MORPHINE SULFATE 30 MG CONTROLLED RELEASE TAB PO SCH ×3 (05:26→21:15)
[2018-01-31] MEDS: HYDROmorphone HCL PF 2 MG/ML VIAL IV PUSH PRN (05:26)
[2018-01-31] MEDS: CHLORHEXIDINE 0.12% (ORAL KIT) 15 ML CUP MT SCH ×2 (08:00→20:00)
[2018-01-31] MEDS: ENOXAPARIN SODIUM 40 MG/0.4 ML SYRINGE SQ SCH (08:48)
[2018-01-31] MEDS: LIDOCAINE HCL 5% PATCH T-DERMAL SCH (08:49)
[2018-01-31] MEDS: FAMOTIDINE 20 MG/2 ML VIAL IV PUSH SCH ×2 (08:49→21:18)
[2018-01-31] MEDS: DOCUSATE SODIUM 50 MG/SENNA 8.6 MG TAB PO SCH ×2 (08:49→21:14)
[2018-01-31] MEDS: SODIUM CHLORIDE 0.9% FLUSH 10 ML FLUSH IV FLUSH SCH ×2 (08:49→21:20)
[2018-01-31] MEDS: METOPROLOL TARTRATE 25 MG TAB PO SCH ×2 (08:49→21:14)
[2018-01-31] MEDS: guaiFENesin E.R. 600 MG TAB PO SCH ×3 (08:49→21:00)
[2018-01-31] MEDS: predniSONE 10 MG TAB PO SCH (08:49)
[2018-01-31] MEDS: TIOTROPIUM BROMIDE 18 MCG INH INH SCH (08:50)
[2018-01-31] MEDS: BUDESONIDE-FORMOTEROL 160/4.5 MCG INHALER INH SCH ×2 (08:50→21:21)
[2018-01-31] MEDS: guaiFENesin/CODEINE SYRUP 200 MG/20 MG/10 ML CUP PO PRN ×2 (09:04→21:15)
--- NOTE | 2018-01-31 12:42 | HHI.PR ---
Subjective Remarks Sitting on the chair pleasant Breathing is stable on O2 nasal cannula Chest tube in place managed by correctional medicine physician Afebrile overnight Objective Vitals Vital Signs Date Time Temp Pulse Resp B/P (MAP) Pulse Ox O2 Delivery O2 Flow Rate FiO2 01/31/18 12:00 96.8 107 18 100/63 (75) 95 01/31/18 08:00 98.2 94 16 101/96 (98) 93 01/31/18 07:50 94 Nasal Cannula 3.00 01/31/18 04:00 98.5 92 21 117/65 (82) 94 01/31/18 00:44 88 01/31/18 00:00 98.2 90 20 100/62 (75) 92 01/30/18 23:18 93 Nasal Cannula 3.00 01/30/18 20:00 98.7 90 20 96/64 (75) 94 01/30/18 16:01 95 Nasal Cannula 3.00 01/30/18 16:00 98.5 94 18 99/64 (76) 92 I/O 01/30/18 01/30/18 01/30/18 01/31/18 01/31/18 01/31/18 07:00 15:00 23:00 07:00 15:00 23:00 Intake Total 240 ml 1200 ml 240 ml Output Total 340 ml 75 ml 1600 ml 1450 ml Balance -100 ml -75 ml -400 ml -1210 ml Intake Oral 240 ml 1200 ml 240 ml Output Urine Total 300 ml 1600 ml 1400 ml Chest Tube Drainage Total 40 ml 50 ml Drainage Total 75 ml # Bowel Movements 0 0 Result Diagram: 01/30/18 1117 01/30/18 1117 Objective Remarks GENERAL: This is a chronically ill 47 years old male patient in no acute distress. CARDIOVASCULAR: Regular rate and rhythm without murmurs, gallops, or rubs. RESPIRATORY: Decreased breath sounds with crackles bilaterally, chest tube on the left side GASTROINTESTINAL: Abdomen soft, non-tender, nondistended. Normal active bowel sounds MUSCULOSKELETAL: Extremities without clubbing, cyanosis, or edema. NEURO: Alert & Oriented x4 to person, place, time, situation. Moves all ext x4 Procedures Chest tube placement Endotracheal tube placement A/P Problem List: (1) Recurrent spontaneous pneumothorax ICD Code: J93.83 - Other pneumothorax Status: Acute (2) COPD (chronic obstructive pulmonary disease) ICD Code: J44.9 - Chronic obstructive pulmonary disease, unspecified (3) Pulmonary fibrosis ICD Code: J84.10 - Pulmonary fibrosis, unspecified Status: Chronic Assessment and Plan 01/29: Chest x-ray today still showing small to moderate pneumothorax, continue chest tube, O2, DuoNeb, monitor O2 sat, follow with pulmonology Dr. Rodriguez Discussed with patient hospice option, he wanted to c discuss with his family first prior to give a decision 01/30: Chest x-ray today still with no change, patient stated his meeting with his family regarding hospice will be on Tuesday I asked him to try to make it sooner, continue antibiotic for now with O2 and DuoNeb monitor oxygenation and temperature 01/31: Continue current care, pulmonology following, monitor O2 sat and the rest of the vitals, plan for family meeting with the patient for hospice option on Tuesday A/P: 47 year-old man with Acute hypoxic respiratory failure - requiring intubation and mechanical ventilation, now extubated Persistent left sided pneumothorax, 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 s/p chest tube up sizing by IR 01/18/18 Daily chest x-ray S/p full course Augmentin. Continue Prednisone 10mg daily On antihypertensives with amlodipine and metoprolol Artificial tears as needed Low-dose Xanax as needed for anxiety GI/DVT prophylaxis Plan discussed previously by Dr. Guy with patient, Dr. Coy and . Patient still not a candidate for CT surgery here due to friable tissue. Most likely would benefit from permanent valve, but more-over, needs work-up for transplant however admission to [facility] has been denied. Hospice consulted Nichole Bonilla MD Jan 31, 2018 12:42
--- NOTE | 2018-01-31 14:15 | PD.CAR.PN ---
CVT Progress Note Subjective/Hospital Course: Patient known to our service, s/p VATS bleb resection and pleuradesis in the past. He presents again with recurrent loculated left PTX treated adequately with a pigtail placed by IR. 01/31/18 Called to see patient for persistent air leak and small loculated left pneumothorax in the setting of end stage lung disease. He has no complaints and is not dyspneic. Objective: Vital Signs Date Time Temp Pulse Resp B/P (MAP) Pulse Ox O2 Delivery O2 Flow Rate FiO2 01/31/18 12:00 96.8 107 18 100/63 (75) 95 01/31/18 08:00 98.2 94 16 101/96 (98) 93 01/31/18 07:50 94 Nasal Cannula 3.00 01/31/18 04:00 98.5 92 21 117/65 (82) 94 01/31/18 00:44 88 01/31/18 00:00 98.2 90 20 100/62 (75) 92 01/30/18 23:18 93 Nasal Cannula 3.00 01/30/18 20:00 98.7 90 20 96/64 (75) 94 01/30/18 16:01 95 Nasal Cannula 3.00 01/30/18 16:00 98.5 94 18 99/64 (76) 92 Result Diagram: 01/30/18 1117 01/30/18 1117 Cardiovascular: RRR Pulmonary: Few expiratory wheezes bilat CT: minimal drainage, small continuous air leak Plan: Unfortunate 47y/o male with severe lung disease and persistent air leak/ bronchopleural fistula controlled with pigtail catheter. He is s/p left pleuradesis and bleb resection in the past and likely has significant adhesions in the left chest. His lung tissue was also friable and he would likely develop a worse air leak than he has currently with an attempt to reoperate. He has been hospitalized now for several weeks with this issue and also has had insurance hurdles for placement or transfer to another facility. Ideally, he should be transferred to a lung transplant center for initial evaluation by pulmonology. I discussed this with the patient and he is agreeable to transfer. Kati Blunt MD Jan 31, 2018 14:15
[2018-01-31] MEDS: ALPRAZolam 0.25 MG TAB PO PRN (18:07)
--- NOTE | 2018-01-31 18:48 | HHI.PR ---
Subjective Remarks No new issues.. Chest tube in left chest still with mild leak. Now on O2 N/C 3 L. CXR again shows a Stable medial left loculated Pneumothorax. Small left lateral pneumo. Has some drainage from chest tube. Dr Blunt was here. Objective Vital Signs Date Time Temp Pulse Resp B/P (MAP) Pulse Ox O2 Delivery O2 Flow Rate FiO2 01/31/18 16:50 18 01/31/18 16:00 96.5 101 18 105/59 (74) 92 01/31/18 12:00 96.8 107 18 100/63 (75) 95 01/31/18 08:00 98.2 94 16 101/96 (98) 93 01/31/18 07:50 94 Nasal Cannula 3.00 01/31/18 04:00 98.5 92 21 117/65 (82) 94 01/31/18 00:44 88 01/31/18 00:00 98.2 90 20 100/62 (75) 92 01/30/18 23:18 93 Nasal Cannula 3.00 01/30/18 20:00 98.7 90 20 96/64 (75) 94 I/O 01/30/18 01/30/18 01/30/18 01/31/18 01/31/18 01/31/18 07:00 15:00 23:00 07:00 15:00 23:00 Intake Total 240 ml 1200 ml 240 ml 720 ml Output Total 340 ml 75 ml 1600 ml 1450 ml 550 ml Balance -100 ml -75 ml -400 ml -1210 ml 170 ml Intake Oral 240 ml 1200 ml 240 ml 720 ml Output Urine Total 300 ml 1600 ml 1400 ml 550 ml Chest Tube Drainage Total 40 ml 50 ml Drainage Total 75 ml # Bowel Movements 0 0 0 Result Diagram: 01/30/18 1117 01/30/18 1117 Objective Remarks GENERAL: This is a well-built middle-aged man who is alert. No pallor or icterus, or edema. HEAD, EYES, EARS, NOSE, THROAT: Head normocephalic. The pupils are reactive and equal. Throat clear. NECK: The neck is supple. CHEST: Decreased breath sounds over the left mid and upper chest with occ crackles at the lung bases.Few wheezes. HEART: Heart sounds are regular. S1 and S2. No murmur. No S3. ABDOMEN: Abdomen soft and without masses. No organomegaly or tenderness. The bowel sounds are active. EXTREMITIES: No lesions. No edema. NEUROLOGIC: Reflexes are 1 +. SKIN: No lesions. Assessment and Plan Assessment and Plan IMPRESSION: 1. Recurrent left pneumothorax with hypoxemia. 2. COPD and chronic bronchitis with bronchiectasis. 3. Basilar pulmonary fibrosis. 4. Hypertension. 5. Respiratory failure Plan : 1. Chest Tube to Wall Suction. 2. Cont O2 to 3 L 3. Taper Prednisone 7.5 mg daily 4. Duonebs qid. 5. Up in room as tolerated 6. IS at bedside q3h 7. PT and OT. 8. Thoracic surgery for Evaluation Prrena Santos MD Jan 31, 2018 18:48
[2018-01-31] MEDS ORDERED: PILL SPLITTER OTHER PRN (19:00)
[2018-01-31] MEDS: REMOVE OLD LIDOCAINE PATCH T-DERMAL SCH (21:00)
[2018-02-01] VITALS: BP 105/57; PULSE 85; RESP 20; TEMP 99.5; O2SAT 93
[2018-02-01] MEDS: RESP: ALBUTEROL 2.5 MG/IPRATROPIUM 0.5 MG NEB (SCH) NEB ×3 (00:28→07:46)
[2018-02-01] MEDS: DEXTROMETHORPHAN SYRUP 7.5MG/5ML UDC PO PRN (00:36)
[2018-02-01 00:42] VITALS: PULSE 100
[2018-02-01 04:00] VITALS: BP 110/72; PULSE 87; RESP 20; TEMP 98; O2SAT 93
[2018-02-01] MEDS: MORPHINE SULFATE 30 MG CONTROLLED RELEASE TAB PO SCH (05:21)
[2018-02-01] MEDS: guaiFENesin/CODEINE SYRUP 200 MG/20 MG/10 ML CUP PO PRN (05:24)
[2018-02-01] MEDS: CHLORHEXIDINE 0.12% (ORAL KIT) 15 ML CUP MT SCH (07:35)
[2018-02-01 07:48] VITALS: O2SAT 94
[2018-02-01 08:00] VITALS: BP 109/64; PULSE 92; RESP 18; TEMP 97.5; O2SAT 93
[2018-02-01] MEDS: ENOXAPARIN SODIUM 40 MG/0.4 ML SYRINGE SQ SCH (09:00)
[2018-02-01] MEDS: guaiFENesin E.R. 600 MG TAB PO SCH (09:00)
[2018-02-01] MEDS: LIDOCAINE HCL 5% PATCH T-DERMAL SCH (09:00)
[2018-02-01] MEDS: DOCUSATE SODIUM 50 MG/SENNA 8.6 MG TAB PO SCH (09:00)
[2018-02-01] MEDS ORDERED: predniSONE 5 MG TAB PO SCH (09:00)
[2018-02-01] MEDS ORDERED: PRED5TAB PO (09:14)
[2018-02-01] MEDS: FAMOTIDINE 20 MG/2 ML VIAL IV PUSH SCH (09:25)
[2018-02-01] MEDS: METOPROLOL TARTRATE 25 MG TAB PO SCH (09:27)
[2018-02-01] MEDS: SODIUM CHLORIDE 0.9% FLUSH 10 ML FLUSH IV FLUSH SCH (09:27)
[2018-02-01] MEDS: TIOTROPIUM BROMIDE 18 MCG INH INH SCH (09:29)
[2018-02-01] MEDS: BUDESONIDE-FORMOTEROL 160/4.5 MCG INHALER INH SCH (09:30)
--- NOTE | 2018-02-01 09:38 | HHI.DS ---
Discharge Summary Admission Date Dec 25, 2017 at 05:16 Discharge Date: Feb 01, 2018 Admitting Diagnosis recurrent pneumothorax, pneumonia, pulmonary fibrosis (1) Recurrent spontaneous pneumothorax ICD Code: J93.83 - Other pneumothorax Status: Acute (2) COPD (chronic obstructive pulmonary disease) ICD Code: J44.9 - Chronic obstructive pulmonary disease, unspecified (3) Pulmonary fibrosis ICD Code: J84.10 - Pulmonary fibrosis, unspecified Status: Chronic Procedures Chest tube placement Endotracheal tube placement Brief History - From Admission 47-year-old male with a past medical history significant for pulmonary fibrosis , COPD and hypertension presents to the emergency department with increased shortness of breath. The patient reports for the past 24 hours he has had significant fever/chills and increasing shortness of breath. He endorses a new cough productive of yellow sputum. He was discharged from the hospital on where he was treated for pneumonia with azithromycin and cefepime. Patient was found to have a left-sided pneumothorax on chest x-ray. Denies chest pain. No nausea/vomiting. Vital signs: Temperature 102.8, pulse 127, BP 167/84, pulse ox 90% on room air. CBC/BMP: 01/30/18 1117 01/30/18 1117 Significant Findings Laboratory Tests Test 01/30/18 11:17 Red Blood Count 4.33 MIL/MM3 (4.50-5.90) Hemoglobin 12.3 GM/DL (13.0-17.0) Hematocrit 36.7 % (39.0-51.0) Neutrophils (%) (Auto) 70.7 % (16.0-70.0) Monocytes (%) (Auto) 8.6 % (0.0-8.0) Creatinine 0.56 MG/DL (0.60-1.30) Carbon Dioxide Level 34.4 MEQ/L (21.0-32.0) PE at Discharge GENERAL: This is a chronically ill 47 years old male patient in no acute distress. CARDIOVASCULAR: Regular rate and rhythm without murmurs, gallops, or rubs. RESPIRATORY: Decreased breath sounds with crackles bilaterally, chest tube on the left side GASTROINTESTINAL: Abdomen soft, non-tender, nondistended. Normal active bowel sounds MUSCULOSKELETAL: Extremities without clubbing, cyanosis, or edema. NEURO: Alert & Oriented x4 to person, place, time, situation. Moves all ext x4 Transfer Summary Transfer note from ICU on January 24 was as follows Remarks/Hospital Course 47-year-old male with a past medical history significant for pulmonary fibrosis , COPD and hypertension and VATS/bleb resection/pleurodesis by Dr. Amanda on 08/23 is admitted to hospital with increased shortness of breath. Chart documentation for the past 24 hours prior to admission he has had significant fever/chills and increasing shortness of breath. Patient was found to have a left-sided pneumothorax on chest x-ray. The chest tube was placed and patient was admitted to medicine with pulmonary consultation in place. Today shortly after midnight the chest tube was found at the patient's bedside the dislodged, patient was in severe respiratory distress, diaphoretic and hypoxemic. The stat x-ray showed reaccumulation of left-sided pneumothorax and emergent chest tube was placed. 12/30 - resting in bed on 6 nasal cannula. Complaining of sore throat. Cough. Pneumothorax last left-sided similar size in reviewing chest x-ray this AM. Discussed with Dr. Blunt and patient 12/31: Resting in bed on nasal cannula. 6 L. Sore throat better controlled with Chloraseptic [place]. Small left sided pneumothorax similar in size from yesterday. Maintaining positive attitude. 01/01: no change. still quite dyspneic. on 6L and intermittently NRB. no new complaints. 01/02: Intermittent requiring nasal cannula versus nonrebreather mask. Remain short of breath. Small air leak persists. -40 cm H2O 01/03: Currently on nasal cannula 6 L. Appears depressed. Small air leak persists 1-2 chambers. -40 cm H2O. 01/04: Remains on nasal cannula 6 L. Switch is off and on between nonrebreather nasal cannula. Air leak persists. Pulmonology is okay with transfer to floor. 01/11: Per report, pigtail catheter placed earlier during hospitalization came out last night. Earlier this AM, patient with worsening respiratory distress, requiring NRM, with PO2 in the 50's. Stat CXR showing left sided pneumothorax. After discussing with patient, he was intubated and simultaneously had a left sided pigtail catheter placed. Currently, mechanically ventilated, Pip mid 20's synchronized with the vent. Chest tube at -40 with air leak. 01/12: No events over the night. Patient doing better, shortness of breath significantly improved, complaining of some chest pain over the chest tube site. Eyes feel better, no visual disturbances, no double vision, very happy with artificial tears. Better spirits. Left-sided chest tube with continuous air leak on suction at -40. He remains on high flow nasal cannula at 0.4 FiO2 and 35 L/min, with O2 sat of 100%. Morning chest x-ray reviewed, mild improvement in left-sided pneumothorax, unchanged infiltrates bilateral worse on the right. 01/13: Patient was weaned off to 6 L nasal cannula last evening over the night he required to be placed back on high flow due to desaturation to mid 80s. This morning he continues to require high flow nasal cannula flow increased from 25-35 L/min due to low O2 sat currently at 40% with sats in the 90s. Otherwise he feels a little better still complaining of some left-sided chest pain due to chest tube shortness of breath unchanged, eye discomfort significantly improved. Chest tube on suction at -40 with continuous air leak. T-max 99.2. 01/14: No events overnight. Patient still requiring high flow nasal cannula at 20 L/min and FiO2 of 0.4 with O2 sats in the mid 90s. Continuous continuous air leak on suction at -40 from a left-sided chest tube. Patient feels better, shortness of breath slightly improved, coughing, bringing up yellow-green sputum. No other complaints, good spirits. T-max 99.7. Morning chest x-ray reviewed, left-sided loculated pneumothorax unchanged. Still with persistent bilateral infiltrates, right worse than left. 01/15: No events overnight. Patient on high flow nasal cannula 20 L/min FiO2 of 0.3, tapering it down. Still some left-sided chest pain on the pigtail catheter. No other complaints. Morning chest x-ray reviewed, left-sided loculated pneumothorax is unchanged as well as persistent bilateral infiltrates. Chest tube to suction at -40 with continuous air leak. 01/16: no changes. remains on high flow NC. no improvements. chest tube to suction. 2/27: down to 6L o2 by NC today. no air leak on CT. still complaints of stable dyspnea. 01/18: No air leak but lung remains incompletely expanded left side. Will need to check tube for plug or replace. 01/19: Chest tube up sized yesterday, but loculated pneumothorax persists, with midline shift. Dr. Amanda to reevaluate per Dr. Hidalgo's notes 01/20: It may be worth targeting the isolated upper medial pneumothorax on the left to see if we can get the pleural space stuck up. 01/21: Air leak persists left. Conversational dyspnea persists. 01/22: Discussed with Dr. Santos. If possible for IR will try to evacuate right upper medii, consider re-sclerosis. 01/23: Resting comfortably in bed. Continues to have small air leak. 01/24: no changes. no complaints. ROS negative. 1+ air leak persists. on 2L nc. Objective Vital Signs Date Time Temp Pulse Resp B/P (MAP) Pulse Ox O2 Delivery O2 Flow Rate FiO2 01/24/18 19:07 Nasal Cannula 2.00 30 01/24/18 16:02 97 01/24/18 12:00 97.5 83 16 105/68 (80) Intake and Output 01/24/18 01/24/18 01/25/18 08:00 16:00 00:00 Intake Total 640 ml 480 ml 360 ml Output Total 800 ml 550 ml 150 ml Balance -160 ml -70 ml 210 ml Result Diagram: 01/20/18 0329 01/20/18 0329 Imaging Last 24 hours Impressions Chest X-Ray 01/15/18 0600 Signed Impressions: Service Date/Time: Monday, January 15, 2018 04:03 - CONCLUSION: No change right greater than left pulmonary opacities and moderate sized loculated left pneumothorax with mediastinal shift. Arnoldo Christensen MD Last Impressions Chest X-Ray 01/14/18 0400 Signed Impressions: Service Date/Time: Sunday, January 14, 2018 04:39 - CONCLUSION: Moderate-sized loculated left pneumothorax persists and with mediastinal shift not significantly changed. Arnoldo Christensen MD Last Impressions Chest X-Ray 01/13/18 0400 Signed Impressions: Service Date/Time: Saturday, January 13, 2018 04:30 - CONCLUSION: 1. Loculated moderate size left pneumothorax with mediastinal shift. Left chest tube remains in place. 2. Diffuse bilateral airspace opacities persist. Arnoldo Christensen MD Last Impressions Chest X-Ray 01/12/18 0400 Signed Impressions: Service Date/Time: , January 12, 2018 05:18 - CONCLUSION: 1. Mild interval improvement in left pneumothorax. Mediastinal shift to the right remains. 2. Diffuse airspace disease remains right greater than left. Saleem Mejia MD Procedures Chest tube placement Endotracheal tube placement Objective Remarks General - middle age gentleman, awake, alert, in no distress. On NC 2L HEENT - pupils equal, reactive, sclerae anicteric, neck supple, moist mucous membranes CV - regular heart sounds, no murmurs, rubs or gallops, no JVD. Chest -scattered coarse breath sounds bilateral, decreased sounds left side, no wheezes, left-sided pigtail catheter in place, 1+ air leak. Abdomen - soft, non-tender, not distended, BS present. no guarding. Extremities - no edema, + peripheral pulses Neuro - awake alert and oriented 3, moves all extremities, conversant. A/P Problem List: (1) Migraine headache ICD Code: G43.909 - Migraine, unspecified, not intractable, without status migrainosus Status: Chronic (2) Spontaneous pneumothorax ICD Code: J93.83 - Other pneumothorax Status: Acute (3) Recurrent spontaneous pneumothorax ICD Code: J93.83 - Other pneumothorax Status: Acute (4) COPD exacerbation ICD Code: J44.1 - Chronic obstructive pulmonary disease with (acute) exacerbation Status: Acute (5) Pulmonary fibrosis ICD Code: J84.10 - Pulmonary fibrosis, unspecified Status: Chronic Assessment and Plan Assessment: 1. Acute hypoxic respiratory failure - requiring intubation and mechanical ventilation, now extubated 2. 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 COPD, chronic bronchitis with bronchiectasis 4. Pulmonary fibrosis 5. HTN Plan: 1. Wean FiO2 to keep oxygen saturation more than 88%, currently on 2 L nasal cannula 2. Bronchodilators 3. Continue chest tube to suction at -40. s/p chest tube up sizing by IR 4. Daily chest x-ray 5. s/p full course Augmentin. 6. Continue Solu-Medrol 40 mg IV every 6 hours per pulmonary 7. On antihypertensives with amlodipine and metoprolol 8. Artificial tears as needed 9. low-dose Xanax as needed for anxiety -discussed with the patient and he agrees 10. GI/DVT prophylaxis 11. Plan discussed extensively by patient, Dr. Santos and . patient still not a candidate for CT surgery here due to friable tissue. most likely would benefit from permanent valve, but more-over, needs work-up for transplant , as his lung disease is fairly rapidly progressive. will continue to look for transplant centers with the ability to work the patient up for transplant. Plan second tube to evacuate the loculated upper middle space and hopefully get the pleural surfaces stuck together. 12. Consider re-sclerosis left pleural space. stable for transfer to floor. consult hospitalist service. Hospital Course 47 years old male with past medical history admittedof COPD hypertension with worsening short of breath [place] cough left-sided pneumothorax and pneumonia , chest tube placed in the ED pulmonary consulted patient has a history of COPD and pulmonary fibrosis. On December 29 chest tube got dislodged and patient went into respiratory distress, critical care consulted patient transferred to ICU where he was followed for chest tube management and respiratory distress and pneumonia, discussion has been done with a wool washer and thoracic surgeon patient is not candidate for CT surgery due to friable tissue he may benefit from permanent falls or the other option would be lung transplant. Effort has been done to transfer patient to tertiary center. Today placed has been secured at [facility] for him to be transferred. [id number] encounter performed with the patient on transfer day, as well as physical exam, summary of hospitalization course and postdischarge plan has been D/W the patient. D/W nurse D/W case managers. Transfer medications list reviewed and printed and signed, post discharge follow up visit with PCP and other specialist as well as Brief hospital course and discharge summary has been placed. Pt Condition on Discharge: Stable Discharge Disposition: Trnsfr to Other Facility Discharge Time: > 30 minutes Discharge Instructions DIET: Follow Instructions for: Heart Healthy Diet Activities you can perform: Weight Bearing as Latisha New Medications: Prednisone (Prednisone) 5 Mg Tab 7.5 MG PO DAILY for steroid, #5 TAB Continued Medications: Albuterol 18 GM Inh (Ventolin Hfa 18 GM Inh) 90 Mcg/Act Aer 2 PUFF INH Q4-6H PRN for SHORTNESS OF BREATH, #1 INHALER 1 Refill Amlodipine (Norvasc) 10 Mg Tab 10 MG PO DAILY for Hypertension, #30 TAB 0 Refills Metoprolol Tartrate (Metoprolol Tartrate) 25 Mg Tab 25 MG PO Q12HR for Blood Pressure Management, #60 TAB 1 Refill Oxycodone HCl/Acetaminophen (Oxycodone-Acetaminophen 5-325) 5 Mg-325 Mg Tablet 1 TAB PO Q4H PRN for PAIN, #12 TAB 0 Refills DO NOT USE THIS MEDICINE IF YOU WILL DRIVE A CAR OR USE A MACHINE, ONLY USE IT WHEN RESTING AT HOME. Tiotropium Inh (Spiriva Handihaler) 18 Mcg Cap 18 MCG INH DAILY for Asthma Management, #1 CAP 1 Refill 1 capsule = 18 mcg [Budeson-Formot 160-4.5 Mcg Inh] () 60 PUFF AERO 2 PUFF INH Q12HR for FIBROSIS, #1 BOTTLE 0 Refills [guaiFENesin ER] () 600 MG TABCR 600 MG PO BID for COPD, #60 TAB 0 Refills Nichole Bonilla MD Feb 01, 2018 09:38
[2018-02-01] MEDS: HYDROmorphone HCL PF 2 MG/ML VIAL IV PUSH PRN (10:49)
--- NOTE | 2018-02-01 12:01 | HHI.PR ---
Subjective Remarks Was Accepted at [facility]. Chest tube in left chest still with mild leak. Still on O2 N/C 3 L. CXR again shows a Stable medial left loculated Pneumothorax. Small left lateral pneumo. Has some drainage from chest tube. Objective Vital Signs Date Time Temp Pulse Resp B/P (MAP) Pulse Ox O2 Delivery O2 Flow Rate FiO2 02/01/18 09:38 Nasal Cannula 3.00 Humidified 02/01/18 08:00 97.5 92 18 109/64 (79) 93 02/01/18 07:48 94 Nasal Cannula 3.00 02/01/18 04:00 98.0 87 20 110/72 (85) 93 02/01/18 00:42 100 02/01/18 00:00 99.5 85 20 105/57 (73) 93 01/31/18 20:35 94 Nasal Cannula 3.00 01/31/18 20:00 97.1 94 20 112/70 (84) 95 01/31/18 16:50 18 01/31/18 16:00 96.5 101 18 105/59 (74) 92 01/31/18 12:00 96.8 107 18 100/63 (75) 95 I/O 01/31/18 01/31/18 01/31/18 02/01/18 02/01/18 02/01/18 07:00 15:00 23:00 07:00 15:00 23:00 Intake Total 240 ml 720 ml 320 ml Output Total 1450 ml 620 ml 600 ml Balance -1210 ml 100 ml -280 ml Intake Oral 240 ml 720 ml 320 ml Output Urine Total 1400 ml 550 ml 600 ml Chest Tube Drainage Total 50 ml Drainage Total 70 ml # Bowel Movements 0 0 0 Result Diagram: 01/30/18 1117 01/30/18 1117 Objective Remarks GENERAL: This is a well-built middle-aged man who is alert. No pallor or icterus, or edema. HEAD, EYES, EARS, NOSE, THROAT: Head normocephalic. The pupils are reactive and equal. Throat clear. NECK: The neck is supple. CHEST: Decreased breath sounds over the left mid and upper chest with occ crackles at the lung bases and Few wheezes. HEART: Heart sounds are regular. S1 and S2. No murmur. No S3. ABDOMEN: Abdomen soft and without masses. No organomegaly or tenderness. The bowel sounds are active. EXTREMITIES: No lesions. No edema. NEUROLOGIC: Reflexes are 1 +. SKIN: No lesions. Assessment and Plan Assessment and Plan IMPRESSION: 1. Recurrent left pneumothorax with hypoxemia. 2. COPD and chronic bronchitis with bronchiectasis. 3. Basilar pulmonary fibrosis. 4. Hypertension. 5. Respiratory failure Plan : 1. Chest Tube to drain 2. Cont O2 to 3 L 3. Prednisone 7.5 mg daily 4. Duonebs qid. 5. [place] 7.5 mg qid PRN 6. IS at bedside q3h 7. PT and OT. 8. Transfer to [facility] for bronchial valve. Prerna Santos MD Feb 01, 2018 12:01
== END 2018-02-01 11:59 | disposition short-term general hospital (02) | DRG 208 ==
LOC: NEPE 03:49 → NEDA 05:16 → N04B 06:44 → N03A 12-29 03:47 → N05B 01-04 20:15 → N03A 01-11 06:01 → N07B 01-24 13:09
PROVIDERS: ADMIT Hospitalist; ATTEND Hospitalist
PROC: 0W9B30Z Drainage of Left Pleural Cavity with Drainage Device, Percutaneous Approach (ICD-10-PCS; principal; 2017-12-25)
PROC: 5A1935Z Respiratory Ventilation, Less than 24 Consecutive Hours (ICD-10-PCS; 2018-01-11)
PROC: 0W9B30Z Drainage of Left Pleural Cavity with Drainage Device, Percutaneous Approach (ICD-10-PCS; 2018-01-11)
PROC: 0BH18EZ Insertion of Endotracheal Airway into Trachea, Via Natural or Artificial Opening Endoscopic (ICD-10-PCS; 2018-01-11)
PROC: 0W9B30Z Drainage of Left Pleural Cavity with Drainage Device, Percutaneous Approach (ICD-10-PCS; 2018-01-18)
DX: J93.83 Other pneumothorax (principal); J86.0 Pyothorax with fistula; J96.01 Acute respiratory failure with hypoxia; J96.02 Acute respiratory failure with hypercapnia; E87.2 Acidosis; J84.10 Pulmonary fibrosis, unspecified; J18.9 Pneumonia, unspecified organism; J44.1 Chronic obstructive pulmonary disease with (acute) exacerbation; J44.0 Chronic obstructive pulmonary disease with (acute) lower respiratory infection; F41.9 Anxiety disorder, unspecified; G43.009 Migraine without aura, not intractable, without status migrainosus; I10 Essential (primary) hypertension; J93.82 Other air leak; J47.9 Bronchiectasis, uncomplicated; D64.9 Anemia, unspecified; Y95 Nosocomial condition; Z87.891 Personal history of nicotine dependence; Z87.01 Personal history of pneumonia (recurrent); Z79.52 Long term (current) use of systemic steroids
CPT/HCPCS: 32551; 32557; 36556; 36600; 71045; 80048; 80053; 80202; 82550; 82552; 82565; 82805; 83605; 83735; 83880; 84100; 84484; 85007; 85025; 85027; 85610; 85730; 87040; 87070; 87205; 87449; 87641; 87804; 93005; 94002; 94003; 94150; 94640; 94664; 96361; 96374; 96375; C1729; C1769; C1887; J0456; J0692; J0696; J1170; J1650; J1885; J2060; J2250; J2270; J2543; J2920; J3010; J3370; J7030; J7040; J7050; J7512; J7613